=== PATIENT | male | born 1965 | race Caucasian/White ===

== ENCOUNTER 2021-03-12 07:53 | Outpatient (RCR) | payer MEDICARE, MEDICAID, SELFPAY | END 2021-04-30 10:00 | disposition home or self-care (01) | LOC: HO.WCC 07:53 | PROVIDERS: Visit Provider Surgery | DX: I87.331 Chronic venous hypertension (idiopathic) with ulcer and inflammation of right lower extremity (principal); L97.812 Non-pressure chronic ulcer of other part of right lower leg with fat layer exposed; I89.0 Lymphedema, not elsewhere classified; Z79.01 Long term (current) use of anticoagulants; Z79.2 Long term (current) use of antibiotics; Z79.899 Other long term (current) drug therapy | CPT/HCPCS: 11042; 11045; 29580; 29581; 99212 ==

== ENCOUNTER 2021-05-13 07:24 | Outpatient (REF) | payer MEDICARE, MEDICAID, SELFPAY ==
--- NOTE | ~2021-05-13 | XR_ITS ---
EXAMINATION: XR AP STANDING KNEES XR KNEE, LEFT CLINICAL INFORMATION: M25.569 - Pain in unspecified knee COMPARISON: None TECHNIQUE: Standing AP view of the knees is performed. The left knee is also imaged in lateral and axial patella views. FINDINGS: Left: There are osteoarthritic changes greatest medial knee joint compartment with moderate to prominent narrowing of the joint and marginal osteophytes medial femoral condyle and medial tibial plateau. There is no erosive change or chondrocalcinosis. No destructive process. There is small to moderate suprapatellar effusion. There is spurring at the quadriceps insertion patella and lateral and medial patellar spurring. No lateralization patella. Right: There is intact hardware proximal tibia. There is no destructive process or osteolysis. Narrowing medial knee joint compartment is present with small marginal osteophytes from the medial femoral condyle and medial tibial plateau. There is no erosive change or chondrocalcinosis. XR/XR knee LT 2V IMPRESSION: Osteoarthritis with narrowing medial knee joint compartment, greater on left. Small to moderate left effusion.
--- NOTE | ~2021-05-13 | XR_ITS ---
EXAMINATION: XR AP STANDING KNEES XR KNEE, LEFT CLINICAL INFORMATION: M25.569 - Pain in unspecified knee COMPARISON: None TECHNIQUE: Standing AP view of the knees is performed. The left knee is also imaged in lateral and axial patella views. FINDINGS: Left: There are osteoarthritic changes greatest medial knee joint compartment with moderate to prominent narrowing of the joint and marginal osteophytes medial femoral condyle and medial tibial plateau. There is no erosive change or chondrocalcinosis. No destructive process. There is small to moderate suprapatellar effusion. There is spurring at the quadriceps insertion patella and lateral and medial patellar spurring. No lateralization patella. Right: There is intact hardware proximal tibia. There is no destructive process or osteolysis. Narrowing medial knee joint compartment is present with small marginal osteophytes from the medial femoral condyle and medial tibial plateau. There is no erosive change or chondrocalcinosis. XR/XR knee standing BI IMPRESSION: Osteoarthritis with narrowing medial knee joint compartment, greater on left. Small to moderate left effusion.
== END 2021-05-13 07:25 | disposition home or self-care (01) ==
LOC: HO.HOSX 07:24
PROVIDERS: Visit Provider Physician Assistant
DX: M17.12 Unilateral primary osteoarthritis, left knee (principal)
CPT/HCPCS: 20610; 73560; 73565; 99202; J1040

== ENCOUNTER → 2021-05-19 13:02 | Outpatient (BNVA) | payer MEDICARE, MEDICAID, SELFPAY | PROVIDERS: PCP Family Medicine; Visit Provider Internal Medicine Cardiovascular Disease | DX: I48.0 Paroxysmal atrial fibrillation (principal); I10 Essential (primary) hypertension; E66.01 Morbid (severe) obesity due to excess calories; G47.33 Obstructive sleep apnea (adult) (pediatric); Z68.43 Body mass index [BMI] 50.0-59.9, adult; Z98.84 Bariatric surgery status; Z86.718 Personal history of other venous thrombosis and embolism; Z86.711 Personal history of pulmonary embolism; Z95.828 Presence of other vascular implants and grafts; Z99.89 Dependence on other enabling machines and devices; Z88.1 Allergy status to other antibiotic agents; Z88.0 Allergy status to penicillin; Z88.2 Allergy status to sulfonamides; Z88.8 Allergy status to other drugs, medicaments and biological substances; Z79.02 Long term (current) use of antithrombotics/antiplatelets; Z79.899 Other long term (current) drug therapy | CPT/HCPCS: 93005; 99202 ==

== ENCOUNTER 2021-05-27 07:53 | Outpatient (RCR) | payer MEDICARE, MEDICAID, SELFPAY ==
--- NOTE | 2021-06-26 14:39 | MHC.OT.DC ---
[address] [phone] F: [phone] Occupational Therapy Discharge Note Provider: Kathleen Lozoya MD Diagnosis: Bilateral leg lymphedema , s/p open wound on the right Date of Surgery: Date of Evaluation: Date of Discharge: Treatments to Date: 1 Cancellations to Date: No Shows to Date: Discharge Status: Physician Discontinued Tx Discharge Summary: See eval for details. Pt had been measured for Juxtalite wrap at [facility], but has not been fitted. Pt had a venograph showing DVT. Seen by Dr Molina. Planning surgical intervention. Electronically Signed By: Ellie Mora OT CHt CLT Reviewed/agree with student documentation: N/A Therapist: Please Sign and return to therapist, thank you for your referral.
== END 2022-02-17 11:42 | disposition home or self-care (01) ==
LOC: HO.OT 07:53
PROVIDERS: PCP Family Medicine; Visit Provider Surgery
DX: I89.0 Lymphedema, not elsewhere classified (principal)

== ENCOUNTER 2021-06-02 08:55 | Outpatient (REF) | payer MEDICARE, MEDICAID, SELFPAY ==
[2021-06-02 12:06] LABS: Blood Urea Nitrogen 20 mg/dL (9-16); Estimated Glomerular Filt Rate > 60
== END 2021-06-02 08:56 | disposition home or self-care (01) ==
LOC: HO.HMGCLDS 08:55
PROVIDERS: PCP Family Medicine; Visit Provider Radiology Vascular & Interventional Radiology
DX: R79.89 Other specified abnormal findings of blood chemistry (principal); R94.4 Abnormal results of kidney function studies
CPT/HCPCS: 36415; 82565; 84520

== ENCOUNTER → 2021-07-03 08:45 | Outpatient (REF) | payer MEDICARE, MEDICAID, SELFPAY ==
--- NOTE | 2021-07-03 08:48 | CA_ITS ---
Transthoracic Echocardiogram Patient (Last, First, Middle): Jan Vilalrreal, Gender: Male Date of : 1965 Age: 55 Procedure Date: 07/03/2021 Procedure Type: Transthoracic Echocardiogram Location: OP Height: 175.26 cm Weight: 154.22 kg BSA: 2.59 m2 Heart Rate: bpm BP: 150 / 80 mmHg [employer] Supervisor: DSCee Referring MD: Steven Ch MD Symptoms: I48.0 - Paroxysmal atrial fibrillation Conclusions: - Normal left ventricular size, thickness, systolic function, and wall motion. - Normal right ventricular cavity size and systolic function. - Moderate pulmonary hypertension is present. - There is mild dilatation of the ascending aorta. Findings Left Ventricle Normal left ventricular size, thickness, systolic function, and wall motion. The visually estimated ejection fraction is between 55-60%. Diastolic function is normal for age. Right Ventricle Normal right ventricular cavity size and systolic function. Atria The left atrium was not well visualized. Aortic Valve There is mild calcification of the aortic valve. There is no aortic valve stenosis. There is no aortic valve regurgitation. Mitral Valve Normal mitral valve structure and function. There is no mitral valve regurgitation. There is no mitral valve stenosis. Pulmonic Valve Normal pulmonic valve structure and function. There is trace pulmonic valve regurgitation. Tricuspid Valve Normal tricuspid valve structure and function. There is trace tricuspid valve regurgitation. Normal right atrial pressure. Moderate pulmonary hypertension is present. Great Vessels There is mild dilatation of the ascending aorta. The visualized portions of the pulmonary artery and branches are normal. Venous The inferior vena cava is normal in size and collapses greater than 50% with inspiration. Pericardium/Pleural There is no evidence of pericardial effusion. Prior Study Comparison No prior study available for comparison. Measurements 2D Linear Measurements IVSd: 0.99 0.6-0.9/0.6-1.0 cm LVIDd: 5.64 3.9-5.3/4.2-5.9 cm LVIDd Index: 2.18 2.4-3.2/2.2-3.1 cm/m2 LVIDs: 3.08 2.0-3.6 cm LVPWd: 1.30 0.7-1.1 cm Ao Root: 3.20 2.1-3.5 cm LA Diam: 4.60 2.7-3.8/3.0-4.0 cm LAIDs Index: 1.78 1.5-2.3 cm/m2 LV Mass: 331.06 67-162/88-224 g LV Mass Index: 127.82 43-95/49-115 g/m2 LVOT Diam: 2.50 3.0+(-)1.3 cm Mitral Valve MV Pk E: 0.89 MV PK A: 0.93 MV Decel Time: 184.00 E/A: 1.00 E'Lateral: 11.20 E'Medial: 12.90 E/E' Med: 6.90 E/E' Lat: 7.90 PHT: 54.00 MVA PHT: 4.07 Decel Harlan: 4.81 Aortic Valve AoV Pk Aidan: 1.26 AoV Pk Grad: 6.00 LVOT LVOT Pk Aidan: 1.06 LVOT Mn Aidan: 0.65 LVOT VTI: 0.17 LVOT Pk Grad: 4.00 LVOT Mn Grad: 2.00 LVOT Diam: 2.50 LVOT Area: 4.91 Diastolic Function MV Pk E: 0.89 MV Pk A: 0.93 E/A: 1.00 E'Medial: 12.90 E/E' Med: 6.90 E' Laterial: 11.20 E/E' Lat: 7.90 Right Ventricle TAPSE (mm): 2.75 Tricuspid Valve TR Pk Aidan: 3.29 TR Pk Grad: 43.00 RA Press: 3.00 RVSP: 50.00 Great Vessels Aorta Ao Root-2D: 3.20 2.0-3.7 cm Ao Asc: 3.80 2.1-3.4 cm Updated in Other Vendor System with Status of Final Steven Ch MD electronically signed on 07/05/2021 10:20:51 PM with status of Final
== END ==
LOC: HO.CARD 08:45
PROVIDERS: PCP Family Medicine; Visit Provider Internal Medicine Cardiovascular Disease
DX: I48.0 Paroxysmal atrial fibrillation (principal)
CPT/HCPCS: 93306; Q9957

== ENCOUNTER → 2021-08-11 11:30 | Outpatient (BNVA) | payer MEDICARE, MEDICAID, SELFPAY | PROVIDERS: PCP Family Medicine; Referring Provider Family Medicine; Visit Provider Internal Medicine Cardiovascular Disease | DX: I48.0 Paroxysmal atrial fibrillation (principal); I26.99 Other pulmonary embolism without acute cor pulmonale; I10 Essential (primary) hypertension; E66.01 Morbid (severe) obesity due to excess calories; E89.0 Postprocedural hypothyroidism; Z98.84 Bariatric surgery status; Z95.828 Presence of other vascular implants and grafts; Z79.01 Long term (current) use of anticoagulants; Z79.891 Long term (current) use of opiate analgesic; Z79.899 Other long term (current) drug therapy | CPT/HCPCS: 99212 ==

== ENCOUNTER → 2021-08-12 13:59 | Outpatient (BNVA) | payer MEDICARE, MEDICAID, SELFPAY | PROVIDERS: PCP Family Medicine; Visit Provider Urology | DX: N40.1 Benign prostatic hyperplasia with lower urinary tract symptoms (principal); R33.9 Retention of urine, unspecified; N32.81 Overactive bladder | CPT/HCPCS: 99202 ==

== ENCOUNTER 2021-09-01 09:30 | Outpatient (REF) | payer MEDICARE, MEDICAID, SELFPAY ==
--- NOTE | ~2021-09-01 | XR_ITS ---
EXAMINATION: KNEE X-RAY CLINICAL INFORMATION: Pain COMPARISON: Previous left knee x-ray April 2021 TECHNIQUE: Standing AP view of both knees and lateral and sunrise view of the left knee FINDINGS: Right knee: Bone alignment is normal. No fracture or dislocation is seen. There is arthritis at the medial femoral tibial and patellofemoral joints with joint space narrowing and osteophyte formation. There is a joint effusion. Standing AP view of the left knee demonstrates orthopedic hardware in the proximal tibia there is arthritis at the medial femoral tibial joint. XR/XR knee LT 2V IMPRESSION: Right knee: Arthritis and joint effusion. Left knee:. The proximal tibia and arthritis at the medial femoral tibial joint.
--- NOTE | ~2021-09-01 | XR_ITS ---
EXAMINATION: KNEE X-RAY CLINICAL INFORMATION: Pain COMPARISON: Previous left knee x-ray April 2021 TECHNIQUE: Standing AP view of both knees and lateral and sunrise view of the left knee FINDINGS: Right knee: Bone alignment is normal. No fracture or dislocation is seen. There is arthritis at the medial femoral tibial and patellofemoral joints with joint space narrowing and osteophyte formation. There is a joint effusion. Standing AP view of the left knee demonstrates orthopedic hardware in the proximal tibia there is arthritis at the medial femoral tibial joint. XR/XR knee standing BI IMPRESSION: Right knee: Arthritis and joint effusion. Left knee:. The proximal tibia and arthritis at the medial femoral tibial joint.
== END 2021-09-01 09:31 | disposition home or self-care (01) ==
LOC: HO.HOSX 09:30
PROVIDERS: Visit Provider Orthopaedic Surgery
DX: M17.12 Unilateral primary osteoarthritis, left knee (principal)
CPT/HCPCS: 20610; 73560; 73565; 99212; J1040

== ENCOUNTER 2021-09-15 14:05 | Outpatient (REF) | payer MEDICARE, MEDICAID, SELFPAY ==
[2021-09-15 16:43] LABS: Platelet Count 233 X10*3/uL (160-400)
[2021-09-15 16:52] LABS: Prothrombin Time 11.3 SEC (9.9-13.0)
[2021-09-15 17:04] LABS: Anion Gap 12 (12-20); Blood Urea Nitrogen 17 mg/dL (9-16); Calcium 9.2 mg/dL (8.4-10.2); Carbon Dioxide 28 mmol/L (22-29); Chloride 105 mmol/L (96-108); Estimated Glomerular Filt Rate > 60; Glucose Random 87 mg/dL (60-115); Potassium 4.7 mmol/L (3.3-5.1); Sodium 140 mmol/L (135-145)
== END 2021-09-15 14:06 | disposition home or self-care (01) ==
LOC: HO.HMGCLDS 14:05
PROVIDERS: Visit Provider Student in an Organized Health Care Education/Training Program
DX: D68.9 Coagulation defect, unspecified (principal); Z95.828 Presence of other vascular implants and grafts
CPT/HCPCS: 36415; 80048; 85049; 85610

== ENCOUNTER → 2021-11-17 12:37 | Outpatient (BNVA) | payer MEDICARE, MEDICAID, SELFPAY | PROVIDERS: PCP Family Medicine; Referring Provider Family Medicine; Visit Provider Internal Medicine Cardiovascular Disease | DX: I48.0 Paroxysmal atrial fibrillation (principal); I10 Essential (primary) hypertension | CPT/HCPCS: 99212 ==

== ENCOUNTER 2021-12-02 11:43 | Outpatient (REF) | payer MEDICARE, MEDICAID, SELFPAY ==
[2021-12-02 14:11] LABS: INTERNATIONAL NORM RATIO 1.5 (0.9-1.1); Prothrombin Time 16.9 SEC (9.9-13.0)
[2021-12-02 14:12] LABS: Platelet Count 227 X10*3/uL (160-400)
[2021-12-02 14:16] LABS: Blood Urea Nitrogen 20 mg/dL (9-16); Estimated Glomerular Filt Rate > 60
== END 2021-12-02 11:44 | disposition home or self-care (01) ==
LOC: HO.HMGCLDS 11:43
PROVIDERS: PCP Family Medicine; Visit Provider Physician Assistant
DX: D68.9 Coagulation defect, unspecified (principal); Z95.828 Presence of other vascular implants and grafts
CPT/HCPCS: 36415; 82565; 84520; 85049; 85610

== ENCOUNTER → 2022-01-13 09:23 | Outpatient (BNVA) | payer MEDICARE, MEDICAID, SELFPAY | PROVIDERS: Visit Provider Physician Assistant | DX: M17.12 Unilateral primary osteoarthritis, left knee (principal) | CPT/HCPCS: 99212 ==

== ENCOUNTER 2022-01-21 13:58 | Outpatient (REF) | payer MEDICARE, MEDICAID, SELFPAY ==
[2022-01-21 17:00] LABS: Blood Urea Nitrogen 21 mg/dL (9-16); Estimated Glomerular Filt Rate > 60
== END 2022-01-21 13:59 | disposition home or self-care (01) ==
LOC: HO.HMGCLDS 13:58
PROVIDERS: PCP Family Medicine; Visit Provider Radiology Vascular & Interventional Radiology
DX: R79.89 Other specified abnormal findings of blood chemistry (principal); R94.4 Abnormal results of kidney function studies
CPT/HCPCS: 36415; 82565; 84520

== ENCOUNTER 2022-01-30 11:28 | Emergency (ER) | payer MEDICARE, MEDICAID, SELFPAY ==
--- NOTE | ~2022-01-30 | XR_ITS ---
EXAMINATION: XR KNEE, LEFT CLINICAL INFORMATION: Pain in the left knee for months COMPARISON: Radiographs of the left knee 09/01/2021 TECHNIQUE: Four views of the left knee. FINDINGS: Again demonstrated is medial and patellofemoral joint space narrowing with tricompartmental osteophyte formation. No acute fracture or dislocation. There is an enthesophyte of the quadriceps tendon. There is a trace joint effusion. XR/XR knee LT 3V IMPRESSION: Moderate osteoarthritis of the left knee is again demonstrated, similar to the prior study. No acute fracture or dislocation.
--- NOTE | ~2022-01-30 | US_ITS ---
EXAMINATION: US VENOUS ULTRASOUND WITH DOPPLER LOWER EXTREMITY, LEFT CLINICAL INFORMATION: Pain. On Eliquis COMPARISON: None TECHNIQUE: Ultrasound of the deep veins is performed from the hip to the calf with compression sonography and color and pulse Doppler assessment. Spectral analysis with color-flow imaging is performed. FINDINGS: Exam limited by body habitus. Limited visualization of the distal femoral vein popliteal vein in the calf veins. No evidence of deep vein thrombosis from groin through the calf. If the patient's symptoms persist, followup ultrasound in 5 days 7 days might be of value to exclude proximal propagation from a non-visualized calf vein. US/US venous duplex LE LT IMPRESSION: No DVT demonstrated in the left lower extremity.
[2022-01-30 12:45] VITALS: BP 179/51; PULSE 57; RESP 16; TEMP 36.4; O2SAT 97; BMI 55.9
--- NOTE | 2022-01-30 13:09 | ED_ITS ---
HPI - Extremity Problem General Chief complaint: Extremity Problem Stated complaint: L knee pain Time Seen by Provider: 01/30/22 13:09 Source: patient Mode of arrival: ambulatory Limitations: physical limitation (obesity) History of Present Illness HPI Narrative: 56-year-old male presents for months of left knee pain that has worsened in the last week. It is painful to walk on it and it is difficult for him to bend it much. It is worse with standing and movement. 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 He has hardware in his right knee, but no surgeries on his left knee. He last saw orthopedics 01/13/2022, and they stated due to his BMI being 56, and bilateral lower extremity venous stasis, he is not a candidate for knee replacement surgery. Patient is seeing vascular surgery this coming Wednesday for bilateral leg stents. He has been on Eliquis, 5 mg b.i.d., he stopped Eliquis last night due to the upcoming surgery. In addition, patient has an appoint with pain management in 2 weeks him Ortho referred him to. States he cannot have NSAIDs due to gastric bypass. His left knee pain is 03/27 now Related Data Home Medications Medication Instructions Recorded Confirmed albuterol sulfate 90 mcg/actuation 1 inh INHALATION QID 05/13/21 11/17/21 aerosol inhaler calcium carbonate-vitamin D3 600 cap PO 05/13/21 11/17/21 mg-2.5 mcg (100 unit) capsule ferrous fumarate 325 mg (106 mg 325 mg PO DAILY 05/13/21 11/17/21 iron) tablet montelukast 10 mg tablet 10 mg PO BEDTIME 05/13/21 11/17/21 omeprazole 40 mg capsule,delayed 40 mg PO DAILY 05/13/21 11/17/21 release oxycodone 5 mg capsule 5 mg PO BID PRN 05/13/21 11/17/21 sertraline 50 mg tablet 50 mg PO DAILY 05/13/21 11/17/21 gabapentin 300 mg capsule 300 mg PO TID 05/19/21 11/17/21 cyclobenzaprine 5 mg tablet 5 mg PO BID 08/11/21 11/17/21 furosemide 20 mg tablet 20 mg PO DAILY 08/11/21 11/17/21 ferrous sulfate 325 mg (65 mg 325 mg PO DAILY 08/12/21 11/17/21 iron) tablet Previous Rx's Medication Instructions Recorded metoprolol succinate 100 mg 100 mg PO DAILY #90 tab 05/19/21 tablet,extended release 24 hr (Toprol XL) oxybutynin chloride 10 mg 10 mg PO DAILY 90 Days #90 tab 08/12/21 tablet,extended release 24 hr tamsulosin 0.4 mg capsule 0.4 mg PO BEDTIME 90 Days #90 cap 08/12/21 lisinopril 20 mg tablet 20 mg PO DAILY #90 tab 11/17/21 Allergies Allergy/AdvReac Type Severity Reaction Status Date / Time cefaclor [From [facility]] Allergy Severe hives Verified 01/13/22 09:33 epanolol Allergy Severe hives Verified 01/13/22 09:33 misoprostol Allergy Severe rash Verified 01/13/22 09:33 NSAIDS (Non-Steroidal Allergy Severe GI upset Verified 01/13/22 09:33 Anti-Inflamma Penicillins Allergy Severe hives, Verified 01/13/22 09:33 rash, itching Sulfa (Sulfonamide Allergy Severe Hives Verified 01/13/22 09:33 Antibiotics) Cephalosporins Allergy Intermediate hives Verified 01/13/22 09:33 amoxicillin Allergy Mild rash Verified 01/13/22 09:33 vancomycin Allergy Mild itching Verified 01/13/22 09:33 Review of Systems Constitutional: Constitutional: Denies body ache(s), Denies chills, Denies fatigue, Denies fever(s), Denies headache(s), Denies malaise and Denies weakness Eyes: Eyes: Denies diplopia ENT: Denies vertigo, Denies dizziness, Denies otalgia, Denies headache(s), Denies mouth pain, Denies post nasal drip, Denies sinus pain and Denies sore throat Cardiovascular: Cardiovascular: Denies chest pain, Denies syncope, Denies leg edema, Denies lightheadedness, Denies Loss of Consciousness, Denies palpitations and Denies dyspnea Respiratory: Respiratory: Denies chest congestion, Denies cough and Denies dyspnea Gastrointestinal: Gastrointestinal: Denies abdominal pain, Denies hem atochezia, Denies constipation, Denies diarrhea and Denies vomiting Musculoskeletal: Musculoskeletal: Denies deformity, Reports arthralgias, Denie s muscle weakness, Denies numbness and Denies tingling Neurologic: Denies confusion, Denies vertigo, Denies dizziness, Denies syncope, Denies headache(s), Denies numbness, Denies tingling and Denies weakness Psychiatric: Psychiatric: Denies anxiety, Denies confusion and Denies depression Endocrine: Endocrine: Denies fatigue and Denies palpitations [facility] Past Medical History Medical History Asthma Depression Dyspnea GERD (gastroesophageal reflux disease) History of kidney stones Hyperlipidemia Lumbar disc disease Lumbar disc prolapse with root compression Lymphedema Morbid obesity Neurogenic bladder OA (osteoarthritis) Uncomplicated opioid dependence Venous stasis Surgical History Hx of gastric bypass Family History Family History Mother Diabetes Father Brain cancer Social History Social History Alcohol intake: former Year quit: 1979 Patient Tobacco Use Status: Former Tobacco user Quit Date: Years Smoked: 2 Advance Directives: Yes Advance Directives on File: Yes Advance Directives Date on File: 08/14/21 Current occupational status: disabled Current occupation: rt handed Physical Exam Vital Signs: Vital Signs: Last Vital Signs Temp 97.6 F 01/30/22 12:45 Pulse 57 01/30/22 12:45 Resp 16 01/30/22 12:45 BP 179/51 H 01/30/22 12:45 Pulse Ox 97 01/30/22 12:45 BMI result Body Mass Index 55.9 Const: General: alert and awake; No confusion Nutritional Appearance: obese morbidly obese Orientation/consciousness: patient oriented x3 and No confusion Limitations: no limitations Eyes: Conjunctivae: conjunctivae normal Pupils: Equal, round and reactive pupils present EOM: EOMs intact bilaterally Neck: Neck: Yes full ROM, Yes no lymphadenopathy and Yes supple Resp: Effort & Inspection: normal respiratory effort and able to speak in complete sentences Auscultation: clear to auscultation bilaterally, no crac kles, no rales, no rhonchi and no wheezes Cardio: Rate: regular rate Rhythm: regular rhythm Heart sounds: S1 normal heart sound present and S2 normal heart sound present GI: Inspection: Yes normal to inspection Palpation (GI): Soft to palpation, nontender, no guarding and not rigid Percussion: Yes normal to percussion Auscultation: normal bowel sounds Skin: Other: bilateral venous statis on LE with skin thickening Neuro: General: patient oriented x3 and No confusion Cranial nerves: Yes Equal, round and reactive pupils present Extrem: Left lower extremity: normal capillary refill and knee Details: tenderness Location: of the patella Details: medially and of the medial joint line, abnormal ROM Details: pain with passive ROM Details: with flexion and knee ligament exam normal; Negative for no swelling, no ecchymosis and no unusual warmth; No no cyanosis and no edema Psych: Appearance: grossly normal Affect: normal affect Attitude: cooperative Thought process: Normal thought process present Course Course Course Narrative: 56-year-old male who is morbidly obese with a history opioid dependence presents for 1 week of worsening left knee pain. Patient has chronic left knee pain, and has been evaluated by orthopedics. Patient has osteoarthritis of his left knee, and is not a surgical candidate. Patient has an upcoming appoint with pain management. On exam, patient is morbidly obese, can only flex his knee to 60 degrees, has intact distal extremity pulses, intact sensation, intact lower extremity stren gth. Patient has bilateral venous stasis and skin thickening on his lower extremities. Because patient stopped his Eliquis, and has history of DVT, will get ultrasound of left lower extremity to rule out DVT. Will get x-ray. If these are normal, will treat with Tylenol, have patient keep appointment with pain management. XR/XR knee LT 3V IMPRESSION: Moderate osteoarthritis of the left knee is again demonstrated, similar to the prior study. No acute fracture or dislocation. Reevaluation(s) Reevaluation #1: No DVT Discuss the possibility of Synvisc injection. Discussed rest, ice, compression, elevation. Provided Israel bandage. Discussed Tylenol use. Counseled patient to call orthopedics. Counseled patient to keep his vascular appointment for Wednesday and stay off his Eliquis, and to keep his pain management appointment. Discharge Plan Discharge Clinical Impression: Osteoarthritis of left knee Patient Disposition: Home, Self-Care Instructions: Arthritis (ED) Additional Instructions: Please take Tylenol for pain. You can take 1000 mg which is 2 extra-strength Tylenol every 8 hours. Do not exceed 3000 mg in 24 hours. Please stay off your Eliquis until you see vascular surgery on Wednesday. Please keep your appointment with the Pain Clinic. Please try to rest your left leg, leave the Israel bandage on the left leg, you may use ice or heat on the left leg, please elevate your left leg. Please call orthopedics for a follow-up appointment. We discussed something called Synvisc. This is an artificial synovial fluid. Please ask orthopedics if you would be a candidate for this procedure. Prescriptions: No Action ferrous sulfate 325 mg (65 mg iron) tablet 325 mg PO DAILY 0RF tamsulosin 0.4 mg capsule 0.4 mg PO BEDTIME 90 Days Qty: 90 1RF oxybutynin chloride 10 mg tablet extended release 24hr 10 mg PO DAILY 90 Days Qty: 90 1RF cyclobenzaprine 5 mg tablet 5 mg PO BID 0RF furosemide 20 mg tablet 20 mg PO DAILY 0RF gabapentin 300 mg capsule 300 mg PO TID 0RF metoprolol succinate [Toprol XL] 100 mg tablet extended release 24 hr 100 mg PO DAILY Qty: 90 3RF ferrous fumarate 325 mg (106 mg iron) tablet 325 mg PO DAILY 0RF sertraline 50 mg tablet 50 mg PO DAILY 0RF oxycodone 5 mg capsule 5 mg PO BID PRN0RF omeprazole 40 mg capsule,delayed release(DR/EC) 40 mg PO DAILY 0RF calcium carbonate-vitamin D3 600 mg(1,500mg) -100 unit capsule PO 0RF montelukast 10 mg tablet 10 mg PO BEDTIME 0RF albuterol sulfate 90 mcg/actuation HFA aerosol inhaler 1 inh inhalation QID 0RF lisinopril 20 mg tablet 20 mg PO DAILY Qty: 90 4RF Referrals: Dave Chowdhury MD [Physician] -
[2022-01-30] MEDS: Acetaminophen 325 MG TABLET 975 MG PO (14:23)
== END 2022-01-30 15:31 | disposition home or self-care (01) ==
PROVIDERS: Emergency Provider Emergency Medicine; PCP Family Medicine
DX: M17.12 Unilateral primary osteoarthritis, left knee (principal); R60.0 Localized edema; Z87.891 Personal history of nicotine dependence; Z79.899 Other long term (current) drug therapy; Z98.84 Bariatric surgery status
CPT/HCPCS: 73562; 93971; 99284

== ENCOUNTER → 2022-02-06 09:19 | Outpatient (BNVA) | payer MEDICARE, MEDICAID, SELFPAY | PROVIDERS: Visit Provider Nurse Practitioner Family | DX: M17.12 Unilateral primary osteoarthritis, left knee (principal); M25.562 Pain in left knee; G89.29 Other chronic pain | CPT/HCPCS: 99202 ==

== ENCOUNTER 2022-02-09 12:30 | Outpatient (REF) | payer MEDICARE, MEDICAID, SELFPAY ==
[2022-02-09 15:32] LABS: MANUAL DIFF FLAG NO
[2022-02-09 16:26] LABS: Basophils Absolute Auto 0.1 X10*3/uL (0.0-0.2); Basophils Percent Auto 0.9 % (0-2); Eosinophils Absolute Auto 0.2 X10*3/uL (0.0-0.4); Eosinophils Percent Auto 2.3 % (0-4); Hematocrit 39.5 % (42.0-52.0); Hemoglobin 12.8 g/dl (14.0-18.0); Imm Gran Abs Auto 0.08 X10*3/uL (0.00-0.03); Imm Gran Pct Auto 1.2 % (0.0-0.4); Lymphocytes Absolute Auto 1.5 X10*3/uL (1.2-4.9); Mean Corpuscular HGB Conc 32.4 g/dl (31.0-36.0); Mean Corpuscular Hemoglobin 31.6 pg (27.0-33.0); Mean Corpuscular Volume 97.5 fL (80.0-98.0); Mean Platelet Volume 9.3 fL (9.4-12.4); Monocytes Absolute Auto 0.6 X10*3/uL (0.1-1.2); Monocytes Percent Auto 9.5 % (2-11); Neutrophils Absolute Auto 4.2 x10*3/uL (2.0-8.3); Neutrophils Percent Auto 63.1 % (45-73); Platelet Count 255 X10*3/uL (160-400); Red Blood Count 4.05 X10*6/uL (4.60-5.80); White Blood Count 6.6 X10*3/uL (4.8-10.8)
[2022-02-09 16:33] LABS: Estimated Average Glucose 100 mg/dL; Hemoglobin A1c % 5.1 %
[2022-02-09 17:05] LABS: Alanine Aminotransferase 24 U/L (0-40); Albumin Level 3.9 g/dL (3.5-5.0); Alkaline Phosphatase 82 U/L (39-117); Anion Gap 11 (12-20); Aspartate Amino Transferase 24 U/L (5-37); Bilirubin Total 0.6 mg/dL (0.0-1.0); Blood Urea Nitrogen 15 mg/dL (9-16); C Reactive Protein 3.95 mg/dL (< or = 0.50); Carbon Dioxide 27 mmol/L (22-29); Chloride 104 mmol/L (96-108); Cholesterol 197 mg/dL; Estimated Glomerular Filt Rate > 60; Glucose Random 86 mg/dL (60-115); HDL Cholesterol 42 mg/dL; Iron 70 mcg/dL (45-160); LDL Cholesterol Calculated 135 mg/dl; Percent Iron Saturation 27 % (15-50); Potassium 4.4 mmol/L (3.3-5.1); Sodium 138 mmol/L (135-145); Total Iron Binding Capacity 264 mcg/dL (228-428); Total Protein 7.1 g/dL (6.5-8.0); Triglycerides 100 mg/dL; Unsaturated Iron Binding 194 ug/dL
[2022-02-09 17:17] LABS: Ferritin 209 ng/mL (20-250); Insulin 8 uU/mL (2-29); TSH reflex Free T4 3.64 uIU/mL (0.32-4.0); Vitamin D 25-OH Total 20.4 ng/mL (>30)
[2022-02-09 17:22] LABS: Folate 13.8 ng/mL (> or = 4.0); Vitamin B12 261 pg/mL (200-900)
[2022-02-09 19:02] LABS: Thyroid Stimulating Hormone 3.58 uIU/mL (0.32-4.0)
[2022-02-10 11:27] LABS: PTHI 226 pg/mL (16-77)
[2022-02-11 13:11] LABS: Transglutaminase IgA <1.0 U/mL
[2022-02-13 06:12] LABS: Vitamin B1 11 nmol/L (8-30)
[2022-02-13 13:47] LABS: Zinc 59 mcg/dL (60-130)
[2022-02-13 21:11] LABS: Vitamin A 47 mcg/dL (38-98)
[2022-02-13 23:07] LABS: Endomysial IgA Antibody Negative (Negative)
== END 2022-02-09 12:31 | disposition home or self-care (01) ==
LOC: HO.LAB 12:30
PROVIDERS: Physician Assistant; PCP Family Medicine; Visit Provider Physician Assistant
DX: R19.7 Diarrhea, unspecified (principal); E66.01 Morbid (severe) obesity due to excess calories; I48.0 Paroxysmal atrial fibrillation; Z79.01 Long term (current) use of anticoagulants; Z98.84 Bariatric surgery status
CPT/HCPCS: 36415; 80053; 80061; 82306; 82607; 82728; 82746; 83036; 83525; 83540; 83970; 84425; 84443; 84590; 84630; 85025; 86140; 86231; 86364; 99202

== ENCOUNTER 2022-03-06 09:33 | Outpatient (REF) | payer MEDICARE, MEDICAID, SELFPAY ==
[2022-03-06 12:42] LABS: Leukocytes Stool Qualitative NEGATIVE (NEGATIVE)
[2022-03-06 13:44] LABS: CDiff Gene PCR NEGATIVE (Negative)
== END 2022-03-06 09:34 | disposition home or self-care (01) ==
LOC: HO.HMGCLNP 09:33
PROVIDERS: Visit Provider Physician Assistant
DX: R19.7 Diarrhea, unspecified (principal)
CPT/HCPCS: 87045; 87046; 87177; 87209; 87329; 87493; 89055

== ENCOUNTER → 2022-03-19 14:43 | Outpatient (BNVA) | payer MEDICARE, MEDICAID, SELFPAY | PROVIDERS: PCP Family Medicine; Referring Provider Family Medicine; Visit Provider Internal Medicine Cardiovascular Disease | DX: I48.0 Paroxysmal atrial fibrillation (principal); I10 Essential (primary) hypertension; R07.9 Chest pain, unspecified; Z86.718 Personal history of other venous thrombosis and embolism; Z79.01 Long term (current) use of anticoagulants; Z79.899 Other long term (current) drug therapy | CPT/HCPCS: 93005; 99212; Q3014 ==

== ENCOUNTER 2022-03-20 08:25 | Outpatient (REF) | payer MEDICARE, MEDICAID, SELFPAY ==
[2022-03-20 11:26] LABS: MANUAL DIFF FLAG NO
[2022-03-20 11:39] LABS: Basophils Percent Auto 0.9 % (0-2); Eosinophils Absolute Auto 0.1 X10*3/uL (0.0-0.4); Eosinophils Percent Auto 3.2 % (0-4); Hematocrit 41.4 % (42.0-52.0); Hemoglobin 13.4 g/dl (14.0-18.0); Imm Gran Abs Auto 0.02 X10*3/uL (0.00-0.03); Imm Gran Pct Auto 0.5 % (0.0-0.4); Lymphocytes Absolute Auto 1.2 X10*3/uL (1.2-4.9); Mean Corpuscular HGB Conc 32.4 g/dl (31.0-36.0); Mean Corpuscular Hemoglobin 31.2 pg (27.0-33.0); Mean Corpuscular Volume 96.3 fL (80.0-98.0); Mean Platelet Volume 10.1 fL (9.4-12.4); Monocytes Absolute Auto 0.4 X10*3/uL (0.1-1.2); Monocytes Percent Auto 8.6 % (2-11); Neutrophils Absolute Auto 2.6 x10*3/uL (2.0-8.3); Neutrophils Percent Auto 58.8 % (45-73); Platelet Count 233 X10*3/uL (160-400); Red Cell Distribution Width 13.3 % (11.0-16.0); White Blood Count 4.4 X10*3/uL (4.8-10.8)
[2022-03-20 11:48] LABS: Alanine Aminotransferase 14 U/L (0-40); Albumin Level 3.8 g/dL (3.5-5.0); Alkaline Phosphatase 70 U/L (39-117); Anion Gap 14 (12-20); Aspartate Amino Transferase 20 U/L (5-37); Bilirubin Total 0.7 mg/dL (0.0-1.0); Blood Urea Nitrogen 20 mg/dL (9-16); C Reactive Protein 0.32 mg/dL (< or = 0.50); Calcium 9.1 mg/dL (8.4-10.2); Carbon Dioxide 25 mmol/L (22-29); Chloride 105 mmol/L (96-108); Cholesterol 204 mg/dL; Estimated Glomerular Filt Rate > 60; Glucose Random 103 mg/dL (60-115); HDL Cholesterol 47 mg/dL; Iron 92 mcg/dL (45-160); LDL Cholesterol Calculated 142 mg/dl; Percent Iron Saturation 35 % (15-50); Potassium 4.7 mmol/L (3.3-5.1); Sodium 139 mmol/L (135-145); Total Iron Binding Capacity 265 mcg/dL (228-428); Total Protein 6.9 g/dL (6.5-8.0); Triglycerides 79 mg/dL; Unsaturated Iron Binding 173 ug/dL
[2022-03-20 12:12] LABS: Ferritin 173 ng/mL (20-250); Insulin 11 uU/mL (2-29); TSH reflex Free T4 2.41 uIU/mL (0.32-4.0); Vitamin D 25-OH Total 25.4 ng/mL (>30)
[2022-03-20 12:41] LABS: Folate > 20.0 ng/mL (> or = 4.0)
[2022-03-20 12:57] LABS: Estimated Average Glucose 103 mg/dL; Hemoglobin A1c % 5.2 %
[2022-03-20 14:20] LABS: Vitamin B12 433 pg/mL (200-900)
[2022-03-23 15:53] LABS: PTHI 217 pg/mL (16-77)
[2022-03-24 05:42] LABS: Zinc 81 mcg/dL (60-130)
[2022-03-25 01:52] LABS: Vitamin A 56 mcg/dL (38-98)
[2022-03-25 11:32] LABS: Vitamin B1 18 nmol/L (8-30)
== END 2022-03-20 08:26 | disposition home or self-care (01) ==
LOC: HO.HMGCLDS 08:25
PROVIDERS: Visit Provider Physician Assistant
DX: E66.01 Morbid (severe) obesity due to excess calories (principal); Z98.84 Bariatric surgery status
CPT/HCPCS: 36415; 80053; 80061; 82306; 82607; 82728; 82746; 83036; 83525; 83540; 83970; 84425; 84443; 84590; 84630; 85025; 86140

== ENCOUNTER 2022-03-26 14:32 | Inpatient (IN) | payer MEDICARE, MEDICAID, SELFPAY ==
[2022-03-26] VITALS (9 sets, daily range): BP systolic 119–217; BP diastolic 74–114; PULSE 74–180; RESP 16–22; TEMP 36.5; O2SAT 92–94; BMI 56.1
--- NOTE | 2022-03-26 | ECG_ITS ---
Test Reason : chest pain Blood Pressure : / mmHG Vent. Rate : 123 BPM Atrial Rate : 330 BPM P-R Int : 000 ms QRS Dur : 100 ms QT Int : 322 ms P-R-T Axes : 000 044 013 degrees QTc Int : 460 ms Atrial flutter with variable A-V block Nonspecific ST abnormality Abnormal ECG No previous ECGs available Referred By: Generic ED Physician Electronically Signed By:SATINDER GIRARD
--- NOTE | ~2022-03-26 | XR_ITS ---
EXAMINATION: XR CHEST CLINICAL INFORMATION: Chest pain COMPARISON: None TECHNIQUE: AP portable view of the chest was obtained. FINDINGS: The cardiopericardial silhouette is enlarged. There is some mild pulmonary vascular congestion present without evidence of interstitial or airspace edema. No pneumothorax or pleural effusion. XR/XR chest 1V IMPRESSION: Cardiomegaly with mild pulmonary vascular congestion.
--- NOTE | 2022-03-26 15:20 | ED.CHESTPAIN ---
HPI - Chest Pain General Chief Complaint: Chest Pain Stated Complaint: CHEST PRESSURE DOWN L ARM PER EMS Time Seen by Provider: 03/26/22 15:17 Source: patient and old records reviewed Mode of arrival: EMS Limitations: no limitations History of Present Illness HPI narrative: 56 yo male with hx of morbidy obesity s/p gastric bypass, HTN, HLD, PAF on eliquis, GERD here with chest pressure since 9am today does not have known CAD but does have risk factors and a family history. He will not take aspirin due to prior gastric bypass history, refused nitro with EMS - he reports compliance with all of his medications today and has not missed any doses of eliquis. Was planned for oupatient stress test with cardiology per note from 03/19. MD complaint: chest pain Onset (ago): hour(s) (9am today ) Timing of current episode: constant Prior episodes: Yes Onset: during rest Pain location: substernal and left chest Pain radiation: left arm Severity: moderate Quality: other (pressure) Relieving factors: nothing Exacerbating factors: nothing Context: other (hx of similar bouts saw Cardiology 03/19) Treatment prior to arrival: none Related Data Home Medications Medication Instructions Recorded Confirmed albuterol sulfate 90 mcg/actuation 1 inh inhalation QID 05/13/21 03/19/22 aerosol inhaler montelukast 10 mg tablet 10 mg PO BEDTIME 05/13/21 03/19/22 omeprazole 40 mg capsule,delayed 40 mg PO DAILY 05/13/21 03/19/22 release sertraline 50 mg tablet 50 mg PO DAILY 05/13/21 03/19/22 furosemide 20 mg tablet 20 mg PO DAILY 08/11/21 03/19/22 apixaban 5 mg tablet 5 mg PO BID 02/06/22 03/19/22 calcium carbonate 600 mg-vitamin cap PO DAILY 02/06/22 03/19/22 D3 10 mcg (400 unit) capsule fluticasone 250 mcg-salmeterol 50 1 inh inhalation BID 02/06/22 03/19/22 mcg/dose blistr powdr for inhalation (Advair Diskus) iron,carbonyl 65 mg-vitamin C 125 1 tab PO BEDTIME 02/06/22 03/19/22 mg tablet,delayed release (Vitron-C) multivitamin 1 tab PO DAILY 02/06/22 03/19/22 nystatin-triamcinolone topical appl topical 02/09/22 03/19/22 cream sodium chloride 5 % eye drops 1 drp ophthalmic (eye) QID PRN 02/09/22 03/19/22 methylcellulose (laxative) 500 mg 500 mg PO TID PRN 03/19/22 03/19/22 tablet (Citrucel) ferrous sulfate 325 mg (65 mg 1 tab PO QAM 03/26/22 iron) tablet oxycodone 5 mg tablet 1 tab PO Q6H PRN Pain 03/26/22 warfarin 5 mg tablet 1 tab PO DAILY 03/26/22 Previous Rx's Medication Instructions Recorded metoprolol succinate 100 mg 100 mg PO DAILY #90 tabs 05/19/21 tablet,extended release 24 hr (Toprol XL) cholecalciferol (vitamin D3) 50 50 mcg PO DAILY #30 caps 02/12/22 mcg (2,000 unit) capsule cyanocobalamin (vitamin B-12) 500 500 mcg PO DAILY #30 tabs 02/12/22 mcg tablet oxybutynin chloride 10 mg 10 mg PO DAILY 30 days #90 tabs 03/05/22 tablet,extended release 24 hr tamsulosin 0.4 mg capsule 0.4 mg PO BEDTIME 30 days #90 caps 03/05/22 lisinopril 20 mg tablet 20 mg PO DAILY #60 tabs 03/19/22 Allergies Allergy/AdvReac Type Severity Reaction Status Date / Time cefaclor [From [facility]] Allergy Severe hives Verified 03/19/22 15:20 epanolol Allergy Severe hives Verified 03/19/22 15:20 misoprostol Allergy Severe rash Verified 03/19/22 15:20 NSAIDS (Non-Steroidal Allergy Severe GI upset Verified 03/19/22 15:20 Anti-Inflamma Penicillins Allergy Severe hives, Verified 03/19/22 15:20 rash, itching Sulfa (Sulfonamide Allergy Severe Hives Verified 03/19/22 15:20 Antibiotics) Cephalosporins Allergy Intermediate hives Verified 03/19/22 15:20 amoxicillin Allergy Mild rash Verified 03/19/22 15:20 vancomycin Allergy Mild itching Verified 03/19/22 15:20 clindamycin AdvReac Intermediate Rash Verified 03/19/22 15:20 Review of Systems Review of Systems: Constitutional : No Weight loss, No Fever, No Chills ENT/Mouth : No sore throat, No Rhinorrhea Eyes: No Eye Pain, No Swelling Cardiovascular : pos Chest Pain, no SOB, no Dyspnea on Exertion, No Orthopnea, No Edema, pos Palpitations Respiratory : No Cough, No Sputum Gastrointestinal : no Nausea, No Vomiting, No Diarrhea, No abdominal Pain, No Hematochezia, No Melena Genitourinary : No Dysuria, No Urinary Frequency Musculoskeletal : No joint pain, No Myalgias, No Joint Swelling Skin : No Skin Lesions, No rash Neuro : No Weakness, No Numbness, No Dizziness, No Headache Psych : No Anxiety/Panic, No Depression Heme/Lymph: No Bruising, No Lymphadenopathy Endocrine : No Polyuria, No Polydipsia All other systems reviewed and are negative [facility] Past Medical History Source: old records reviewed Medical History Asthma Depression Dyspnea Family history of stent GERD (gastroesophageal reflux disease) History of kidney stones Hyperlipidemia Lumbar disc disease Lumbar disc prolapse with root compression Lymphedema Migration of vascular stent Morbid obesity Neurogenic bladder OA (osteoarthritis) Pulmonary embolus Uncomplicated opioid dependence Venous stasis Surgical History History of esophagogastroduodenoscopy (EGD) Hx of colonoscopy Hx of eye surgery Hx of gastric bypass S/P appendectomy S/P IVC filter Family History Family History Mother Diabetes Father Brain cancer Sister Diabetes Sister Diabetes Sister Diabetes Brother Blind Brother No problems noted. Brother No problems noted. Brother No problems noted. Brother No problems noted. Daughter No problems noted. Daughter Mental health disorder Son Mental health disorder Son No problems noted. Son No problems noted. Social History Social History Alcohol intake: former Year quit: 1979 Patient Tobacco Use Status: Former Tobacco user Quit Date: Years Smoked: 2 Use of substances other than those prescribed or required for medical reasons: No Advance Directives: Yes Advance Directives on File: Yes Advance Directives Date on File: 08/14/21 Current occupational status: disabled Current occupation: rt handed Physical Exam Vital Signs: Vital Signs: Last Vital Signs Pulse 98 03/26/22 18:37 Resp 16 03/26/22 18:37 BP 141/81 H 03/26/22 18:37 Pulse Ox 94 03/26/22 16:38 O2 Del Method 03/26/22 16:38 BMI result Body Mass Index 56.1 Appearance: Alert. Oriented X3. No acute distress. Eyes: Pupils equal, round and reactive to light. ENT: Pharynx normal. Neck: Normal inspection. Neck supple. CVS: irregular tachycardic heart rate and rhythm. Pulses normal. Respiratory: No respiratory distress. Breath sounds normal. Abdomen: Soft and nontender. Obese Skin: Skin warm and dry. Normal skin color. Normal skin turgor. Extremities: pitting lower extremity edema (chronic lymphedema). Neuro: Oriented X 3. No motor deficit. No sensory deficit. Course Course Course Narrative: HR 101 after lopressor. SL nitro for pain ordered refusing nitro for chest pain at this time - states he is worried this caused his brother's to RN will not elaborate repeat lopressor for rapid afib, IV morphine for pain, IV lasix ordered - edema, elevated BNP HR still fluctuating will place on dilt gtt repeat trop under ischemic range MDM - Chest Pain MDM Narrative Medical decision making narrative: 56 yo male with hx of morbidy obesity s/p gastric bypass, HTN, HLD, PAF on eliquis, GERD, PE with IVF filter removed in the past at [facility] here with c/o chest pain on and off for over a week seen by Dr. Ch 03/19 planned for outpatient stress test. Comes here today with c/o chest pressure since 9am with no associated symptoms he is in rapid afib at this time will need labs, troponin x 2, lopressor for rate control in rapid afib - he cannot take aspirin due to prior gastric bypass. Doubt PE compliant with eliquis and does not miss doses. Elevated heart score - plan to admit for further workup. Lab Data Result diagrams: 03/26/22 15:54 03/26/22 15:54 Labs: Lab Results 03/26/22 03/26/22 03/26/22 Range/Units 15:43 15:54 15:54 WBC 10.6 (4.8-10.8) X10*3/uL RBC 4.58 L (4.60-5.80) X10*6/uL Hgb 14.4 (14.0-18.0) g/dl Hct 43.8 (42.0-52.0) % MCV 95.6 (80.0-98.0) fL MCH 31.4 (27.0-33.0) pg MCHC 32.9 (31.0-36.0) g/dl RDW 12.9 (11.0-16.0) % Plt Count 227 (160-400) X10*3/uL MPV 9.4 (9.4-12.4) fL Immature Gran % (Auto) 0.3 (0.0-0.4) % Neut % (Auto) 86.6 H (45-73) % Lymph % (Auto) 5.7 L (20-40) % [place] % (Auto) 6.4 (2-11) % Eos % (Auto) 0.5 (0-4) % Baso % (Auto) 0.5 (0-2) % Lymph # (Auto) 0.6 L (1.2-4.9) X10*3/uL [place] # (Auto) 0.7 (0.1-1.2) X10*3/uL Eos # (Auto) 0.1 (0.0-0.4) X10*3/uL Baso # (Auto) 0.1 (0.0-0.2) X10*3/uL Abs Immat Gran (auto) 0.03 (0.00-0.03) X10*3/uL Absolute Neuts (auto) 9.2 H (2.0-8.3) x10*3/uL Absolute Nucleated RBC 0.000 (0.0-0.012) X10*3/uL Nucleated RBC % (auto) 0.0 (0.0-0.2) /100WBC PT (9.9-13.0) SEC INR (0.9-1.1) Sodium 138 (135-145) mmol/L Potassium 3.9 (3.3-5.1) mmol/L Chloride 106 (96-108) mmol/L Carbon Dioxide 24 (22-29) mmol/L Anion Gap 12 (12-20) BUN 15 (9-16) mg/dL Creatinine 0.79 (0.5-1.4) mg/dL Estim Creat Clear Calc 162.5 Estimated GFR > 60 Random Glucose 112 (60-115) mg/dL Calcium 8.7 (8.4-10.2) mg/dL Magnesium 1.9 (1.6-2.6) mg/dL Total Bilirubin 0.8 (0.0-1.0) mg/dL Direct Bilirubin 0.3 (0.0-0.5) mg/dL AST 22 (5-37) U/L ALT 15 (0-40) U/L Alkaline Phosphatase 80 (39-117) U/L Troponin I High Sens (<3.5-35.0) ng/L B-Natriuretic Peptide (<100) pg/mL Total Protein 7.3 (6.5-8.0) g/dL Albumin 4.1 (3.5-5.0) g/dL TSH (0.32-4.0) uIU/mL Ethyl Alcohol mg/dL COVID-19 ([facility]RE[facility]) Negative (Negative) COVID-19 Clin Com See Note 03/26/22 03/26/22 03/26/22 Range/Units 15:54 15:54 15:54 WBC (4.8-10.8) X10*3/uL RBC (4.60-5.80) X10*6/uL Hgb (14.0-18.0) g/dl Hct (42.0-52.0) % MCV (80.0-98.0) fL MCH (27.0-33.0) pg MCHC (31.0-36.0) g/dl RDW (11.0-16.0) % Plt Count (160-400) X10*3/uL MPV (9.4-12.4) fL Immature Gran % (Auto) (0.0-0.4) % Neut % (Auto) (45-73) % Lymph % (Auto) (20-40) % [place] % (Auto) (2-11) % Eos % (Auto) (0-4) % Baso % (Auto) (0-2) % Lymph # (Auto) (1.2-4.9) X10*3/uL [place] # (Auto) (0.1-1.2) X10*3/uL Eos # (Auto) (0.0-0.4) X10*3/uL Baso # (Auto) (0.0-0.2) X10*3/uL Abs Immat Gran (auto) (0.00-0.03) X10*3/uL Absolute Neuts (auto) (2.0-8.3) x10*3/uL Absolute Nucleated RBC (0.0-0.012) X10*3/uL Nucleated RBC % (auto) (0.0-0.2) /100WBC PT 12.2 (9.9-13.0) SEC INR 1.1 (0.9-1.1) Sodium (135-145) mmol/L Potassium (3.3-5.1) mmol/L Chloride (96-108) mmol/L Carbon Dioxide (22-29) mmol/L Anion Gap (12-20) BUN (9-16) mg/dL Creatinine (0.5-1.4) mg/dL Estim Creat Clear Calc Estimated GFR Random Glucose (60-115) mg/dL Calcium (8.4-10.2) mg/dL Magnesium (1.6-2.6) mg/dL Total Bilirubin (0.0-1.0) mg/dL Direct Bilirubin (0.0-0.5) mg/dL AST (5-37) U/L ALT (0-40) U/L Alkaline Phosphatase (39-117) U/L Troponin I High Sens 10.0 (<3.5-35.0) ng/L B-Natriuretic Peptide 281 H (<100) pg/mL Total Protein (6.5-8.0) g/dL Albumin (3.5-5.0) g/dL TSH (0.32-4.0) uIU/mL Ethyl Alcohol mg/dL COVID-19 ([facility]) (Negative) COVID-19 Clin Com 03/26/22 03/26/22 03/26/22 Range/Units 15:54 15:54 18:29 WBC (4.8-10.8) X10*3/uL RBC (4.60-5.80) X10*6/uL Hgb (14.0-18.0) g/dl Hct (42.0-52.0) % MCV (80.0-98.0) fL MCH (27.0-33.0) pg MCHC (31.0-36.0) g/dl RDW (11.0-16.0) % Plt Count (160-400) X10*3/uL MPV (9.4-12.4) fL Immature Gran % (Auto) (0.0-0.4) % Neut % (Auto) (45-73) % Lymph % (Auto) (20-40) % [place] % (Auto) (2-11) % Eos % (Auto) (0-4) % Baso % (Auto) (0-2) % Lymph # (Auto) (1.2-4.9) X10*3/uL [place] # (Auto) (0.1-1.2) X10*3/uL Eos # (Auto) (0.0-0.4) X10*3/uL Baso # (Auto) (0.0-0.2) X10*3/uL Abs Immat Gran (auto) (0.00-0.03) X10*3/uL Absolute Neuts (auto) (2.0-8.3) x10*3/uL Absolute Nucleated RBC (0.0-0.012) X10*3/uL Nucleated RBC % (auto) (0.0-0.2) /100WBC PT (9.9-13.0) SEC INR (0.9-1.1) Sodium (135-145) mmol/L Potassium (3.3-5.1) mmol/L Chloride (96-108) mmol/L Carbon Dioxide (22-29) mmol/L Anion Gap (12-20) BUN (9-16) mg/dL Creatinine (0.5-1.4) mg/dL Estim Creat Clear Calc Estimated GFR Random Glucose (60-115) mg/dL Calcium (8.4-10.2) mg/dL Magnesium (1.6-2.6) mg/dL Total Bilirubin (0.0-1.0) mg/dL Direct Bilirubin (0.0-0.5) mg/dL AST (5-37) U/L ALT (0-40) U/L Alkaline Phosphatase (39-117) U/L Troponin I High Sens 22.7 D (<3.5-35.0) ng/L B-Natriuretic Peptide (<100) pg/mL Total Protein (6.5-8.0) g/dL Albumin (3.5-5.0) g/dL TSH 0.94 (0.32-4.0) uIU/mL Ethyl Alcohol < 10 mg/dL COVID-19 ([facility]) (Negative) COVID-19 Clin Com ECG Data ECG #1: Attestation: I personally reviewed and interpreted this ECG as follows: ECG interpretation date: 03/26/22 ECG interpretation time: 15:21 Interpretation: Rate: 123 Rhythm: rapid afib [place]: normal Normal QRS complex. ST T wave : no HUI, non-specific qTC: normal prior studies: hx of afib in past no acute ischemi The study has been interpreted contemporaneously by me. . Scores Heart Score History: -1- moderately suspicious ECG: -1- non specific repolarization disturbance Age: -1- >45 - <65 Risk factory: -2- 3 or more risk factors or treated atherosclerosis Troponin: -0- < or = normal limit Score: 5 Risk: 16.6% Critical Care Time Critical Care Time Critical Care Time: Yes Total Critical Care Time: 45 Attestation: IV lopressor x 3, IV dilt gtt, IV pain medications, IV lasix, review of records I attest to this time spent taking care of the patient Discharge Plan Discharge Clinical Impression: Chest pain, Atrial fibrillation with RVR, Pulmonary edema, Uncontrolled hypertension Patient Disposition: Admitted As Inpatient
[2022-03-26] MEDS: Metoprolol Tartrate 5 MG/5 ML VIAL IVPUSH (15:25)
[2022-03-26 15:59] LABS: MANUAL DIFF FLAG NO
[2022-03-26 16:03] LABS: COVID-19 Test Negative (Negative); IDNOW Serial# 55D5AD1C
[2022-03-26 16:03] LABS: Basophils Absolute Auto 0.1 X10*3/uL (0.0-0.2); Basophils Percent Auto 0.5 % (0-2); Eosinophils Absolute Auto 0.1 X10*3/uL (0.0-0.4); Eosinophils Percent Auto 0.5 % (0-4); Hematocrit 43.8 % (42.0-52.0); Hemoglobin 14.4 g/dl (14.0-18.0); Imm Gran Abs Auto 0.03 X10*3/uL (0.00-0.03); Imm Gran Pct Auto 0.3 % (0.0-0.4); Lymphocytes Absolute Auto 0.6 X10*3/uL (1.2-4.9); Lymphocytes Percent Auto 5.7 % (20-40); Mean Corpuscular HGB Conc 32.9 g/dl (31.0-36.0); Mean Corpuscular Hemoglobin 31.4 pg (27.0-33.0); Mean Corpuscular Volume 95.6 fL (80.0-98.0); Mean Platelet Volume 9.4 fL (9.4-12.4); Monocytes Absolute Auto 0.7 X10*3/uL (0.1-1.2); Monocytes Percent Auto 6.4 % (2-11); Neutrophils Absolute Auto 9.2 x10*3/uL (2.0-8.3); Neutrophils Percent Auto 86.6 % (45-73); Platelet Count 227 X10*3/uL (160-400); Red Blood Count 4.58 X10*6/uL (4.60-5.80); Red Cell Distribution Width 12.9 % (11.0-16.0); White Blood Count 10.6 X10*3/uL (4.8-10.8)
[2022-03-26 16:08] LABS: INTERNATIONAL NORM RATIO 1.1 (0.9-1.1); Prothrombin Time 12.2 SEC (9.9-13.0)
[2022-03-26 16:13] LABS: Ethanol < 10 mg/dL
[2022-03-26 16:17] LABS: Alanine Aminotransferase 15 U/L (0-40); Albumin Level 4.1 g/dL (3.5-5.0); Alkaline Phosphatase 80 U/L (39-117); Anion Gap 12 (12-20); Aspartate Amino Transferase 22 U/L (5-37); Bilirubin Direct 0.3 mg/dL (0.0-0.5); Bilirubin Total 0.8 mg/dL (0.0-1.0); Blood Urea Nitrogen 15 mg/dL (9-16); Calcium 8.7 mg/dL (8.4-10.2); Carbon Dioxide 24 mmol/L (22-29); Chloride 106 mmol/L (96-108); Creatinine Clr Calc Pharmacy 162.5; Estimated Glomerular Filt Rate > 60; Glucose Random 112 mg/dL (60-115); Magnesium 1.9 mg/dL (1.6-2.6); Potassium 3.9 mmol/L (3.3-5.1); Sodium 138 mmol/L (135-145); Total Protein 7.3 g/dL (6.5-8.0)
[2022-03-26 16:21] LABS: B Type Natriuretic Peptide 281 pg/mL (<100)
[2022-03-26] MEDS: Morphine Sulfate 2 MG/ML CARTRIDGE IVPUSH (16:37)
[2022-03-26] MEDS: Metoprolol Tartrate 5 MG/5 ML VIAL 2.5 MG IVPUSH ×2 (16:37→17:46)
[2022-03-26] MEDS: Furosemide 20 MG/2 ML VIAL IVPUSH (16:37)
[2022-03-26 16:38] LABS: TSH reflex Free T4 0.94 uIU/mL (0.32-4.0)
--- NOTE | 2022-03-26 17:51 | PC.NURSE ---
condom cath applied, working well about 600ml of yellow urine present in the mcgarry bag
[2022-03-26] MEDS: HYDROmorphone HCl 1 MG/ML SYRINGE IVPUSH (18:19)
[2022-03-26] MEDS: Acetaminophen 325 MG TABLET 650 MG PO ×2 (18:19→23:48)
[2022-03-26 18:53] LABS: Troponin-I High Sensitivity 22.7 ng/L (<3.5-35.0)
[2022-03-26] MEDS: dilTIAZem HCL 125 MG in 0.9 % Sodium Chloride 100 ML 10 MG IVCONT (18:54)
--- NOTE | 2022-03-26 19:00 | PC.NURSE ---
Took report from Evelia to assume care of Pt, Pt resting, call light in reach, this RN continues to monitor.
--- NOTE | 2022-03-26 19:41 | PHA.MEDREC ---
Pharmacy Consult ? Medication Reconciliation Pharmacy has completed the medication reconciliation.
--- NOTE | 2022-03-26 22:29 | PM.IMHP ---
History of Present Illness Date of Service: 03/26/22 Chief Complaint: chest pain 56-year-old male with a past medical history hypertension, hyperlipidemia, paroxysmal AFib on Eliquis, GERD presented to the hospital with a chief complaint of chest pain. Patient reports that this morning it out chest pain, pressure-like in nature, nonradiating, associated mild nausea, denies any shortness of breath. Reports he had similar episode about a week ago and has seen Cardiology-planned for outpatient stress test. ER course: Per ER team patient's EKG was nonischemic, troponins were 10-22; patient refused aspirin given history of gastric bypass surgery. Patient was noted to be in AFib with rapid ventricle response; patient was given diltiazem IV push followed with placed diltiazem drip. Also noted to have mild congestion; given IV Lasix. Admitted for further management. [facility] Medical History Asthma Depression Dyspnea Family history of stent GERD (gastroesophageal reflux disease) History of kidney stones Hyperlipidemia Lumbar disc disease Lumbar disc prolapse with root compression Lymphedema Migration of vascular stent Morbid obesity Neurogenic bladder OA (osteoarthritis) Pulmonary embolus Uncomplicated opioid dependence Venous stasis Family History Mother Diabetes Father Brain cancer Sister Diabetes Sister Diabetes Sister Diabetes Brother Blind Brother No problems noted. Brother No problems noted. Brother No problems noted. Brother No problems noted. Daughter No problems noted. Daughter Mental health disorder Son Mental health disorder Son No problems noted. Son No problems noted. Surgical History History of esophagogastroduodenoscopy (EGD) Hx of colonoscopy Hx of eye surgery Hx of gastric bypass S/P appendectomy S/P IVC filter Social History Alcohol intake: former Year quit: 1979 Patient Tobacco Use Status: Former Tobacco user Quit Date: Years Smoked: 2 Use of substances other than those prescribed or required for medical reasons: No Advance Directives: Yes Advance Directives on File: Yes Advance Directives Date on File: 08/14/21 Current occupational status: disabled Current occupation: rt handed Meds Allergies Allergy/AdvReac Type Severity Reaction Status Date / Time cefaclor [From [facility]] Allergy Severe hives Verified 03/19/22 15:20 epanolol Allergy Severe hives Verified 03/19/22 15:20 misoprostol Allergy Severe rash Verified 03/19/22 15:20 NSAIDS (Non-Steroidal Allergy Severe GI upset Verified 03/19/22 15:20 Anti-Inflamma Penicillins Allergy Severe hives, Verified 03/19/22 15:20 rash, itching Sulfa (Sulfonamide Allergy Severe Hives Verified 03/19/22 15:20 Antibiotics) Cephalosporins Allergy Intermediate hives Verified 03/19/22 15:20 amoxicillin Allergy Mild rash Verified 03/19/22 15:20 vancomycin Allergy Mild itching Verified 03/19/22 15:20 clindamycin AdvReac Intermediate Rash Verified 03/19/22 15:20 Active Medications: Current Medications Acetaminophen (Acetaminophen 325 Mg Tablet) 650 mg PO Q6H PRN PRN Reason: Pain, Mild (Pain Scale 1-3) Furosemide (Furosemide 40 Mg/4 Ml Vial) 40 mg IVPUSH DAILY [facility]; Protocol Diltiazem HCl 125 mg/ Sodium (Chloride) 125 mls @ 0 mls/hr IVCONT .Q0M [facility]; Protocol Last Admin: 03/26/22 18:54 Dose: 10 mg/hr, 10 mls/hr Melatonin (Melatonin 3 Mg Tablet) 6 mg PO BEDTIME PRN PRN Reason: Insomnia Pharmacy Consult (Consult Rx Perform Med Rec) 1 each MISCELLANE ONCE PRN PRN Reason: Consult order Senna (Sennosides 8.6 Mg Tablet) 17.2 mg PO BEDTIME PRN PRN Reason: Constipation Sodium Chloride (0.9 % Sodium Chloride Flush 3 Ml Syringe) 3 ml IVFLUSH QSHIFT [facility] Home Medications Medication Instructions Recorded Confirmed Last Taken Type albuterol sulfate 90 mcg/actuation 1 inh inhalation QID PRN Shortness 05/13/21 03/26/22 Unknown History aerosol inhaler Of Breath montelukast 10 mg tablet 10 mg PO BEDTIME 05/13/21 03/26/22 03/25/22 History omeprazole 40 mg capsule,delayed 40 mg PO DAILY 05/13/21 03/26/22 03/26/22 History release sertraline 50 mg tablet 50 mg PO DAILY 05/13/21 03/26/2203/26/22 History furosemide 20 mg tablet 20 mg PO DAILY 08/11/21 03/26/22 03/26/22 History apixaban 5 mg tablet 5 mg PO BID 02/06/22 03/26/22 03/26/22 History calcium carbonate 600 mg-vitamin 1 cap PO DAILY 02/06/22 03/26/22 03/26/22 History D3 10 mcg (400 unit) capsule fluticasone 250 mcg-salmeterol 50 1 inh inhalation BID 02/06/22 03/26/22 03/26/22 History mcg/dose blistr powdr for inhalation (Advair Diskus) multivitamin 1 tab PO DAILY 02/06/22 03/26/22 03/26/22 History methylcellulose (laxative) 500 mg 500 mg PO TID PRN Constipation 03/19/22 03/26/22 03/26/22 History tablet (Citrucel) ferrous sulfate 325 mg (65 mg 1 tab PO QAM 03/26/22 03/26/22 03/26/22 History iron) tablet Physical Exam Vital Signs and Narrative: Vital Signs: Last Vital Signs Pulse 98 03/26/22 18:37 Resp 16 03/26/22 18:37 BP 141/81 H 03/26/22 18:37 Pulse Ox 94 03/26/22 16:38 O2 Del Method 03/26/22 16:38 BMI result Body Mass Index 56.1 Gen: Appears be in no acute distress HEENT: NCAT, Moist mucosa. Pulmonary: Fine crackles noted CVS: Normal S1-S2 Abdomen: BS+, Soft, Nontender Extremities: Warm well perfused; mild pedal edema present Neuro: Alert and awake. Results Labs CBC and Chem 7: 03/26/22 15:54 03/26/22 15:54 Labs: Laboratory Results - last 24 hr 03/26/22 03/26/22 03/26/22 15:43 15:54 15:54 MCV 95.6 MCH 31.4 MCHC 32.9 RDW 12.9 Plt Count 227 MPV 9.4 Immature Gran % (Auto) 0.3 Neut % (Auto) 86.6 H Lymph % (Auto) 5.7 L [place] % (Auto) 6.4 Eos % (Auto) 0.5 Baso % (Auto) 0.5 Lymph # (Auto) 0.6 L [place] # (Auto) 0.7 Eos # (Auto) 0.1 Baso # (Auto) 0.1 Abs Immat Gran (auto) 0.03 Absolute Neuts (auto) 9.2 H Absolute Nucleated RBC 0.000 Nucleated RBC % (auto) 0.0 PT INR Anion Gap 12 Estim Creat Clear Calc 162.5 Estimated GFR > 60 Random Glucose 112 Calcium 8.7 Magnesium 1.9 Total Bilirubin 0.8 Direct Bilirubin 0.3 AST 22 ALT 15 Alkaline Phosphatase 80 Troponin I High Sens B-Natriuretic Peptide Total Protein 7.3 Albumin 4.1 TSH Ethyl Alcohol COVID-19 ([facility]) Negative COVID-19 Clin Com See Note 03/26/22 03/26/22 03/26/22 15:54 15:54 15:54 MCV MCH MCHC RDW Plt Count MPV Immature Gran % (Auto) Neut % (Auto) Lymph % (Auto) [place] % (Auto) Eos % (Auto) Baso % (Auto) Lymph # (Auto) [place] # (Auto) Eos # (Auto) Baso # (Auto) Abs Immat Gran (auto) Absolute Neuts (auto) Absolute Nucleated RBC Nucleated RBC % (auto) PT 12.2 INR 1.1 Anion Gap Estim Creat Clear Calc Estimated GFR Random Glucose Calcium Magnesium Total Bilirubin Direct Bilirubin AST ALT Alkaline Phosphatase Troponin I High Sens 10.0 B-Natriuretic Peptide 281 H Total Protein Albumin TSH Ethyl Alcohol COVID-19 ([facility]) [facility] Clin Com 03/26/22 03/26/22 03/26/22 15:54 15:54 18:29 MCV MCH MCHC RDW Plt Count MPV Immature Gran % (Auto) Neut % (Auto) Lymph % (Auto) [place] % (Auto) Eos % (Auto) Baso % (Auto) Lymph # (Auto) [place] # (Auto) Eos # (Auto) Baso # (Auto) Abs Immat Gran (auto) Absolute Neuts (auto) Absolute Nucleated RBC Nucleated RBC % (auto) PT INR Anion Gap Estim Creat Clear Calc Estimated GFR Random Glucose Calcium Magnesium Total Bilirubin Direct Bilirubin AST ALT Alkaline Phosphatase Troponin I High Sens 22.7 D B-Natriuretic Peptide Total Protein Albumin TSH 0.94 Ethyl Alcohol < 10 COVID-19 ([facility]) COVID-19 Clin Com Imaging Radiologist's Impressions: Impressions Chest X-Ray 03/26/22 15:38 IMPRESSION: Cardiomegaly with mild pulmonary vascular congestion. Assessment and Plan (1) Atrial fibrillation with RVR: Status: Acute (2) Pulmonary edema: Qualifiers: Chronicity: acute Qualified Code(s): J81.0 - Acute pulmonary edema Status: Acute (3) Chest pain: Qualifiers: Chest pain type: precordial pain Qualified Code(s): R07.2 - Precordial pain Status: Acute Plan 56-year-old male with a past medical history hypertension, hyperlipidemia, paroxysmal AFib on Eliquis, GERD presented to the hospital with a chief complaint of chest pain. Chest pain: Currently resolved. EKG nonischemic. Troponins 10->22. Patient had similar episodes of chest pain about a week ago and has seen Dr. Ch in the Cardiology Clinic, plan for outpatient stress test. Will consult Cardiology for further recommendations. Patient refused aspirin. CHF: Patient noted fine crackles, chest x-ray showed congestion, proBNP elevated to 81. Status post IV Lasix in the ER. Will continue the patient on Lasix 40 mg IV daily Daily weights and I's and O's Echocardiogram AFib with RVR: Patient heart rate did not improve after IV boluses; subsequently placed on diltiazem drip in the ER. Heart rate currently improved to 80s. Will titrate down diltiazem drip as tolerated. Continue home metoprolol. Continue home Eliquis History of hypertension: Continue home lisinopril, metoprolol History of BPH: Continue home Flomax History of depression: Continue home sertraline DVT prophylaxis: Patient on Eliquis Code status: Full code Quality Stroke Does the patient have a stroke diagnosis?: No VTE Prior VTE?: No VTE Risk Level:: Medical - moderate - high VTE Device Contraindication: Treatment Not Indicated VTE Drug Contraindication: N/A - Med Ordered
--- NOTE | 2022-03-26 22:30 | PC.NURSE ---
Diltiazem stopped for heart rate of 74
[2022-03-26] MEDS: Melatonin 3 MG TABLET 6 MG PO (23:47)
--- NOTE | 2022-03-27 | ECG_ITS ---
Test Reason : HX AFLUTTER Blood Pressure : / mmHG Vent. Rate : 058 BPM Atrial Rate : 058 BPM P-R Int : 190 ms QRS Dur : 108 ms QT Int : 464 ms P-R-T Axes : 024 035 038 degrees QTc Int : 455 ms Sinus bradycardia Possible Left atrial enlargement Borderline ECG When compared with ECG of 26-MAR-2022 15:06, Sinus rhythm has replaced Atrial flutter Vent. rate has decreased BY 65 BPM Referred By: Vidal Perez Electronically Signed By:SATINDER GIRARD
[2022-03-27 02:00] VITALS: BP 116/63; PULSE 72; RESP 14; O2SAT 97
[2022-03-27 06:37] VITALS: BP 132/83; PULSE 68; RESP 14; O2SAT 96
[2022-03-27 06:56] LABS: MANUAL DIFF FLAG NO
--- NOTE | 2022-03-27 07:00 | CA_ITS ---
Transthoracic Echocardiogram Patient (Last, First, Middle): Jan Villarreal, Gender: Male Date of : 1965 Age: 56 Procedure Date: 03/27/2022 Procedure Type: Transthoracic Echocardiogram Location: ER Height: 175.26 cm Weight: 172.37 kg BSA: 2.71 m2 Heart Rate: bpm BP: 132 / 83 mmHg Emt Driver: CHRIST Referring MD: Ciro Arias MD Symptoms: chf; chest pain Study Quality: Technically Difficult/Contrast ECG Rhythm: Atrial flutter Conclusions: - The left ventricular systolic function is normal. The visually estimated ejection fraction is between 60-65%. - No obvious valvular pathology seen on this study. Findings Procedure Information Contrast agent, definity, is being given per protocol without apparent complications. Left Ventricle Normal left ventricular cavity size. There is moderately increased left ventricular wall thickness. The left ventricular systolic function is normal. The visually estimated ejection fraction is between 60-65%. There is no evidence of regional wall motion abnormalities. Diastolic function is indeterminate on the basis of available data. Right Ventricle Normal right ventricular cavity size and systolic function. Atria Both atria are normal in size. Aortic Valve There is mild calcification of the aortic valve. There is no aortic valve stenosis. There is no aortic valve regurgitation. Mitral Valve There is mild mitral annular calcification. There is no mitral valve regurgitation. There is no mitral valve stenosis. Pulmonic Valve The pulmonic valve is likely normal. Tricuspid Valve There is trace tricuspid valve regurgitation. There is no evidence of pulmonary hypertension. Great Vessels The asc aorta is normal in size. There is mild dilatation of the sinuses of Valsalva measuring 4.24 cm. Venous The inferior vena cava was not well visualized. Pericardium/Pleural There is no evidence of pericardial effusion. Prior Study Comparison No significant change compared to prior study dated: 07/03/2021. Recommendations, Care & Conclusions No obvious valvular pathology seen on this study. Measurements 2D Linear Measurements IVSd: 1.27 0.6-0.9/0.6-1.0 cm LVIDd: 4.43 3.9-5.3/4.2-5.9 cm LVIDd Index: 1.63 2.4-3.2/2.2-3.1 cm/m2 LVIDs: 2.68 2.0-3.6 cm LVPWd: 1.27 0.7-1.1 cm LA Diam: 3.40 2.7-3.8/3.0-4.0 cm LAIDs Index: 1.25 1.5-2.3 cm/m2 LV Mass: 261.74 67-162/88-224 g LV Mass Index: 96.58 43-95/49-115 g/m2 LVOT Diam: 2.00 3.0+(-)1.3 cm Aortic Valve AoV Pk Aidan: 1.16 AoV Mn Aidan: 0.74 AoV VTI: 0.19 AoV Pk Grad: 5.00 Aov Mn Grad: 3.00 LVOT LVOT Diam: 2.00 LVOT Area: 3.14 Tricuspid Valve TR Pk Aidan: 2.40 TR Pk Grad: 23.00 RA Press: 8.00 RVSP: 31.00 Great Vessels Aorta Sinus of Valsalva: 4.24 2.0-3.[address] [place]: 3.28 1.7-3.4 cm Ao Asc: 3.80 2.1-3.4 cm Updated in Other Vendor System with Status of Final Pravin Pardo MD electronically signed on 03/27/2022 2:34:05 PM with status of Final
[2022-03-27 07:16] LABS: Basophils Percent Auto 0.5 % (0-2); Eosinophils Absolute Auto 0.1 X10*3/uL (0.0-0.4); Eosinophils Percent Auto 0.8 % (0-4); Hematocrit 44.1 % (42.0-52.0); Hemoglobin 14.3 g/dl (14.0-18.0); Imm Gran Abs Auto 0.03 X10*3/uL (0.00-0.03); Imm Gran Pct Auto 0.4 % (0.0-0.4); Lymphocytes Absolute Auto 1.1 X10*3/uL (1.2-4.9); Lymphocytes Percent Auto 15.3 % (20-40); Mean Corpuscular HGB Conc 32.4 g/dl (31.0-36.0); Mean Corpuscular Hemoglobin 31.7 pg (27.0-33.0); Mean Corpuscular Volume 97.8 fL (80.0-98.0); Mean Platelet Volume 9.7 fL (9.4-12.4); Monocytes Absolute Auto 0.7 X10*3/uL (0.1-1.2); Monocytes Percent Auto 9.9 % (2-11); Neutrophils Absolute Auto 5.4 x10*3/uL (2.0-8.3); Neutrophils Percent Auto 73.1 % (45-73); Platelet Count 210 X10*3/uL (160-400); Red Blood Count 4.51 X10*6/uL (4.60-5.80); Red Cell Distribution Width 13.1 % (11.0-16.0); White Blood Count 7.4 X10*3/uL (4.8-10.8)
[2022-03-27 07:22] LABS: Anion Gap 13 (12-20); Blood Urea Nitrogen 18 mg/dL (9-16); Calcium 8.6 mg/dL (8.4-10.2); Carbon Dioxide 27 mmol/L (22-29); Chloride 104 mmol/L (96-108); Creatinine Clr Calc Pharmacy 154.6; Estimated Glomerular Filt Rate > 60; Glucose Random 101 mg/dL (60-115); Potassium 3.6 mmol/L (3.3-5.1); Sodium 140 mmol/L (135-145)
[2022-03-27 07:31] VITALS: BP 112/82; PULSE 64; RESP 25; O2SAT 99
[2022-03-27] MEDS: Furosemide 40 MG/4 ML VIAL IVPUSH (07:48)
[2022-03-27] MEDS: 0.9 % Sodium Chloride Flush 3 ML SYRINGE IVFLUSH ×2 (07:48→15:47)
--- NOTE | 2022-03-27 07:50 | PC.NURSE ---
a flutter on monitor, skin wpd, sleeping and easily woken, nad, denies pain but states discomfort in chest all night, quickly back to sleep
--- NOTE | 2022-03-27 10:49 | PM.CNCAR ---
History of Present Illness History of Present Illness Date of Service: 03/27/22 Chief complaint: CHF/ AFIB with RVR Narrative: This is a cardiology consultation regarding chest discomfort as well as atrial fibrillation. Patient was recently seen by in office. He has a background of paroxysmal atrial fibrillation, morbid obesity, prior DVT/PE as well as IVC filter that was recently removed [facility] and IVC stenting performed. Based on the recent office notes, it seems that he had an episode of atrial fibrillation while he was at [facility] but when he came to the office, he was rather in sinus rhythm. Then it also describes some chest discomfort. At that time, notes a with exercise and also while lying down. When I questioned him, he states that he gets chest pain randomly. No specific patterns and can happen with rest and can happen with exertion and can essentially happen any time. Hence quite atypical for angina. Then a stress test ordered for further evaluation. In the interim, he is admitted with chest pain that felt like pressure, with mild nausea. In the ER, he was found to be in atrial fibrillation with rapid rate and he was given IV diltiazem. Then he was also thought to have mild congestion and given IV Lasix. Then he was admitted. Currently he is upset that he is in the ER but otherwise no specific complaints. No chest pain at this time. He was on diltiazem drip but not anymore. Review of Systems Review of Systems: Yes all other systems are reviewed and are negative Constitutional: Constitutional: Reports as per HPI Eyes: Eyes: Reports as per HPI ENT: Reports as per HPI Cardiovascular: Cardiovascular: Reports as per HPI, Denies acrocyanosis, Denies cool extremities, Reports chest pain, Denies leg edema, Denies lightheadedness, Reports palpitations and Denies dyspnea Respiratory: Respiratory: Reports as per HPI, Reports no additional respiratory complaints and Denies dyspnea Gastrointestinal: Gastrointestinal: Reports as per HPI and Reports no additional gastrointestinal complaints Genitourinary: Genitourinary: Reports no additional male genitourinary complaints and Reports as per HPI Musculoskeletal: Musculoskeletal: Reports no additional musculoskeletal complaints and Reports as per HPI Integumentary/Breasts: Skin/Breast: Reports system reviewed and no additional complaints, except as docu Neurologic: Reports system reviewed and no additional complaints, except as documented and Reports as per HPI Psychiatric: Psychiatric: Reports no additional psychiatric complaints and Reports as per HPI Endocrine: Endocrine: Reports no additional endocrine complaints, Reports as per HPI and Reports palpitations Hematologic/Lymphatic: Hematologic/Lymphatic: Reports no additional hematologic/lymphatic complaints and Reports as per HPI Allergic/Immunologic: Allergic/Immunologic: Reports no additional allergic/immunologic complaints and Reports as per HPI PMFSH Past Medical History Medical History Asthma Depression Dyspnea Family history of stent GERD (gastroesophageal reflux disease) History of kidney stones Hyperlipidemia Lumbar disc disease Lumbar disc prolapse with root compression Lymphedema Migration of vascular stent Morbid obesity Neurogenic bladder OA (osteoarthritis) Pulmonary embolus Uncomplicated opioid dependence Venous stasis Family History Family History Mother Diabetes Father Brain cancer Sister Diabetes Sister Diabetes Sister Diabetes Brother Blind Brother No problems noted. Brother No problems noted. Brother No problems noted. Brother No problems noted. Daughter No problems noted. Daughter Mental health disorder Son Mental health disorder Son No problems noted. Son No problems noted. Surgical History Surgical History History of esophagogastroduodenoscopy (EGD) Hx of colonoscopy Hx of eye surgery Hx of gastric bypass S/P appendectomy S/P IVC filter Social History Social History Alcohol intake: former Year quit: 1979 Patient Tobacco Use Status: Former Tobacco user Quit Date: Years Smoked: 2 Use of substances other than those prescribed or required for medical reasons: No Advance Directives: Yes Advance Directives on File: Yes Advance Directives Date on File: 08/14/21 Current occupational status: disabled Current occupation: rt handed Meds Allergies Allergy/AdvReac Type Severity Reaction Status Date / Time cefaclor [From [facility]] Allergy Severe hives Verified 03/19/22 15:20 epanolol Allergy Severe hives Verified 03/19/22 15:20 misoprostol Allergy Severe rash Verified 03/19/22 15:20 NSAIDS (Non-Steroidal Allergy Severe GI upset Verified 03/19/22 15:20 Anti-Inflamma Penicillins Allergy Severe hives, Verified 03/19/22 15:20 rash, itching Sulfa (Sulfonamide Allergy Severe Hives Verified 03/19/22 15:20 Antibiotics) Cephalosporins Allergy Intermediate hives Verified 03/19/22 15:20 amoxicillin Allergy Mild rash Verified 03/19/22 15:20 vancomycin Allergy Mild itching Verified 03/19/22 15:20 clindamycin AdvReac Intermediate Rash Verified 03/19/22 15:20 Active Medications: Current Medications Acetaminophen (Acetaminophen 325 Mg Tablet) 650 mg PO Q6H PRN PRN Reason: Pain, Mild (Pain Scale 1-3) Last Admin: 03/26/22 23:48 Dose: 650 mg Albuterol Sulfate (Albuterol Sulfate 90 Mcg 8 Gm Inhaler) 1 puff INHALE QID PRN PRN Reason: Shortness Of Breath Apixaban (Apixaban 5 Mg Tablet) 5 mg PO BID [facility] Cyanocobalamin (Cyanocobalamin (Vitamin B-12) 500 Mcg Tablet) 500 mcg PO DAILY [facility]OANDY Furosemide (Furosemide 40 Mg/4 Ml Vial) 40 mg IVPUSH DAILY YOANDY; Protocol Last Admin: 03/27/22 07:48 Dose: 40 mg Furosemide (Furosemide 20 Mg Tablet) 20 mg PO DAILY YOANDY; Protocol Diltiazem HCl 125 mg/ Sodium (Chloride) 125 mls @ 0 mls/hr IVCONT .Q0M YOANDY; Protocol Last Titration: 03/26/22 22:30 Dose: 10 mg/hr, 10 mls/hr Lisinopril (Lisinopril 20 Mg Tablet) 20 mg PO DAILY YOANDY; Protocol Melatonin (Melatonin 3 Mg Tablet) 6 mg PO BEDTIME PRN PRN Reason: Insomnia Last Admin: 03/26/22 23:47 Dose: 6 mg Metoprolol Succinate (Metoprolol Succinate Er 100 Mg Tab.Er.24h) 100 mg PO DAILY YOANDY; Protocol Montelukast Sodium (Montelukast Sodium 10 Mg Tablet) 10 mg PO BEDTIME [facility] Multivitamins/Vitamin C (Multivitamin Tablet) 1 tab PO DAILY [facility]Y Non-Formulary Medication (Calcium Carbonate-Vitamin D3) 1 cap PO DAILY [facility]ANDY Non-Formulary Medication (Ferrous Sulfate) 1 tab PO QAM [facility]ANDY Non-Formulary Medication (Fluticasone Propion-Salmeterol [Advair Diskus]) 1 inhalation INHALE BID [facility]OANDY Omeprazole (Omeprazole 40 Mg Capsule.Dr) 40 mg PO DAILY [facility] Oxybutynin Chloride (Oxybutynin Chloride Er 5 Mg Tab.Er.24) 10 mg PO DAILY [facility] Pharmacy Consult (Consult Rx Perform Med Rec) 1 each MISCELLANE ONCE PRN PRN Reason: Consult order Senna (Sennosides 8.6 Mg Tablet) 17.2 mg PO BEDTIME PRN PRN Reason: Constipation Sertraline HCl (Sertraline Hcl 50 Mg Tablet) 50 mg PO DAILY [facility] Sodium Chloride (0.9 % Sodium Chloride Flush 3 Ml Syringe) 3 ml IVFLUSH QSHIFT [facility] Last Admin: 03/27/22 07:48 Dose: 3 ml Tamsulosin HCl (Tamsulosin Hcl 0.4 Mg Capsule) 0.4 mg PO BEDTIME [facility] Vitamin D (Cholecalciferol (Vitamin D3) 25 Mcg Tablet) 50 mcg PO DAILY [facility] Home Medications Medication Instructions Recorded Confirmed Last Taken Type albuterol sulfate 90 mcg/actuation 1 inh inhalation QID PRN Shortness 05/13/21 03/26/22 Unknown History aerosol inhaler Of Breath montelukast 10 mg tablet 10 mg PO BEDTIME 05/13/21 03/26/22 03/25/22 History omeprazole 40 mg capsule,delayed 40 mg PO DAILY 05/13/21 03/26/22 03/26/22 History release sertraline 50 mg tablet 50 mg PO DAILY 05/13/21 03/26/22 03/26/22 History furosemide 20 mg tablet 20 mg PO DAILY 08/11/21 03/26/22 03/26/22 History apixaban 5 mg tablet 5 mg PO BID 02/06/22 03/26/22 03/26/22 History calcium carbonate 600 mg-vitamin 1 cap PO DAILY 02/06/22 03/26/22 03/26/22 History D3 10 mcg (400 unit) capsule fluticasone 250 mcg-salmeterol 50 1 inh inhalation BID 02/06/22 03/26/22 03/26/22 History mcg/dose blistr powdr for inhalation (Advair Diskus) multivitamin 1 tab PO DAILY 02/06/22 03/26/22 03/26/22 History methylcellulose (laxative) 500 mg 500 mg PO TID PRN Constipation 03/19/22 03/26/22 03/26/22 History tablet (Citrucel) ferrous sulfate 325 mg (65 mg 1 tab PO QAM 06/07/0903/26/22 03/26/22 History iron) tablet Physical Exam Vital Signs: Vital Signs: Last Vital Signs Temp 97.7 F 03/26/22 22:29 Pulse 64 03/27/22 07:31 Resp 25 H 03/27/22 07:31 BP 112/82 03/27/22 07:31 Pulse Ox 99 03/27/22 07:31 O2 Del Method 03/27/22 07:31 BMI result Body Mass Index 56.1 Const: General: comfortable and no acute distress Orientation/consciousness: patient oriented x3 HEENT: Other: Unremarkable Head: Yes normal to inspection Neck: Neck: Yes normal visual inspection Chest: Chest palpation & inspection: normal inspection of the chest Resp: Auscultation: clear to auscultation bilaterally Cardio: Palpation: normal PMI Heart sounds: S1 normal heart sound present, S2 normal heart sound present, no gallops, no murmurs and no rubs GI: Palpation (GI): Soft to palpation Back/Spine/Pelvis: Other: unremarkable Skin: General skin exam: no rashes or lesions noted Neuro: General: patient oriented x3 Extrem: General: Yes normal to inspection Psych: Mental Status: mental status grossly normal Objective Labs and Meds Result diagrams: 03/27/22 06:42 03/27/22 06:42 Lab results: Laboratory Results - last 24 hr 03/26/22 03/26/22 03/26/22 15:43 15:54 15:54 WBC 10.6 RBC 4.58 L Hgb 14.4 Hct 43.8 MCV 95.6 MCH 31.4 MCHC 32.9 RDW 12.9 Plt Count 227 MPV 9.4 Immature Gran % (Auto) 0.3 Neut % (Auto) 86.6 H Lymph % (Auto) 5.7 L [place] % (Auto) 6.4 Eos % (Auto) 0.5 Baso % (Auto) 0.5 Lymph # (Auto) 0.6 L [place] # (Auto) 0.7 Eos # (Auto) 0.1 Baso # (Auto) 0.1 Abs Immat Gran (auto) 0.03 Absolute Neuts (auto) 9.2 H Absolute Nucleated RBC 0.000 Nucleated RBC % (auto) 0.0 PT INR Sodium 138 Potassium 3.9 Chloride 106 Carbon Dioxide 24 Anion Gap 12 BUN 15 Creatinine 0.79 Estim Creat Clear Calc 162.5 Estimated GFR > 60 Random Glucose 112 Calcium 8.7 Magnesium 1.9 Total Bilirubin 0.8 Direct Bilirubin 0.3 AST 22 ALT 15 Alkaline Phosphatase 80 Troponin I High Sens B-Natriuretic Peptide Total Protein 7.3 Albumin 4.1 TSH Ethyl Alcohol COVID-19 (ANDREAS) Negative [email or web address] Clin Com See Note 03/26/22 03/26/22 03/26/22 15:54 15:54 15:54 WBC RBC Hgb Hct MCV MCH MCHC RDW Plt Count MPV Immature Gran % (Auto) Neut % (Auto) Lymph % (Auto) [place] % (Auto) Eos % (Auto) Baso % (Auto) Lymph # (Auto) [place] # (Auto) Eos # (Auto) Baso # (Auto) Abs Immat Gran (auto) Absolute Neuts (auto) Absolute Nucleated RBC Nucleated RBC % (auto) PT 12.2 INR 1.1 Sodium Potassium Chloride Carbon Dioxide Anion Gap BUN Creatinine Estim Creat Clear Calc Estimated GFR Random Glucose Calcium Magnesium Total Bilirubin Direct Bilirubin AST ALT Alkaline Phosphatase Troponin I High Sens 10.0 B-Natriuretic Peptide 281 H Total Protein Albumin TSH Ethyl Alcohol COVID-19 (ANDREAS) [email or web address] 03/26/22 03/26/22 03/26/22 15:54 15:54 18:29 WBC RBC Hgb Hct MCV MCH MCHC RDW Plt Count MPV Immature Gran % (Auto) Neut % (Auto) Lymph % (Auto) [place] % (Auto) Eos % (Auto) Baso % (Auto) Lymph # (Auto) [place] # (Auto) Eos # (Auto) Baso # (Auto) Abs Immat Gran (auto) Absolute Neuts (auto) Absolute Nucleated RBC Nucleated RBC % (auto) PT INR Sodium Potassium Chloride Carbon Dioxide Anion Gap BUN Creatinine Estim Creat Clear Calc Estimated GFR Random Glucose Calcium Magnesium Total Bilirubin Direct Bilirubin AST ALT Alkaline Phosphatase Troponin I High Sens 22.7 D B-Natriuretic Peptide Total Protein Albumin TSH 0.94 Ethyl Alcohol < 10 COVID-19 (ANDREAS) [email or web address] 03/27/22 03/27/22 06:42 06:42 WBC 7.4 RBC 4.51 L Hgb 14.3 Hct 44.1 MCV 97.8 MCH 31.7 MCHC 32.4 RDW 13.1 Plt Count 210 MPV 9.7 Immature Gran % (Auto) 0.4 Neut % (Auto) 73.1 H Lymph % (Auto) 15.3 L [place] % (Auto) 9.9 Eos % (Auto) 0.8 Baso % (Auto) 0.5 Lymph # (Auto) 1.1 L [place] # (Auto) 0.7 Eos # (Auto) 0.1 Baso # (Auto) 0.0 Abs Immat Gran (auto) 0.03 Absolute Neuts (auto) 5.4 Absolute Nucleated RBC 0.000 Nucleated RBC % (auto) 0.0 PT INR Sodium 140 Potassium 3.6 Chloride 104 Carbon Dioxide 27 Anion Gap 13 BUN 18 H Creatinine 0.83 Estim Creat Clear Calc 154.6 Estimated GFR > 60 Random Glucose 101 Calcium 8.6 Magnesium Total Bilirubin Direct Bilirubin AST ALT Alkaline Phosphatase Troponin I High Sens B-Natriuretic Peptide Total Protein Albumin TSH Ethyl Alcohol COVID-19 (ANDREAS) COVID-19 Clin Com ECG Interpretation: Based on the EKG, rhythm seems to be atrial flutter with rapid rate at 123/Min with nonspecific ST-T changes. Currently he is in atrial flutter with controlled rate. Imaging Radiologist's impression: Impressions Chest X-Ray 03/26/22 15:38 IMPRESSION: Cardiomegaly with mild pulmonary vascular congestion. Assessment and Plan (1) Atrial flutter with rapid ventricular response: Status: Acute (2) Chest pain: Qualifiers: Chest pain type: precordial pain Qualified Code(s): R07.2 - Precordial pain Status: Acute (3) Hypertensive emergency: Status: Acute Plan Last echocardiogram with LVEF of 55-60%; no significant valvular issues; moderate pulmonary hypertension and mild ascending aortic dilatation. High sensitivity troponins are 10 and 22.7. Cardiac BNP is 281. Chest x-ray report have cardiomegaly and mild pulmonary vascular congestion. With regard to atrial fibrillation history, he is on metoprolol ER 100 mg at home. Also on Eliquis. We will add some diltiazem as well at diltiazem CD 1 20 mg daily. His blood pressure is on the lower side today but when he came in it was actually quite high. Indeed initial blood pressure was 217/106 mm Hg. Overall, chest discomfort could be from combination of uncontrolled hypertension as well as from atrial flutter with rapid rate. Will make medication changes as above and monitor him. The small troponin bump is still within acceptable limits and most likely related to the above including uncontrolled pressures as well as atrial flutter with rapid rate. Do not believe he had any acute coronary syndrome. If he does not convert to sinus by himself, then may need cardioversion at some point. With regard to chest pain itself he already has an outpatient stress test ordered and we may possibly keep that appointment. Procedures Date of Service Date of Service: 03/27/22
[2022-03-27] MEDS: Cholecalciferol (Vitamin D3) 25 MCG TABLET 50 MCG PO (11:07)
[2022-03-27] MEDS: Metoprolol Succinate ER 100 MG TAB.ER.24H PO (11:07)
[2022-03-27] MEDS: lisinopriL 20 MG TABLET PO (11:08)
[2022-03-27] MEDS: Multivitamin TABLET 1 TAB PO (11:08)
[2022-03-27] MEDS: Apixaban 5 MG TABLET PO ×2 (11:08→21:14)
[2022-03-27] MEDS: Furosemide 20 MG TABLET PO (11:08)
[2022-03-27 11:10] VITALS: BP 150/84; PULSE 93; RESP 22; O2SAT 94
[2022-03-27] MEDS: Sertraline HCL 50 MG TABLET PO (11:15)
[2022-03-27] MEDS: dilTIAZem HCL CD 120 MG CAP.ER.DEG PO (11:15)
[2022-03-27] MEDS: Omeprazole 40 MG CAPSULE.DR PO (11:16)
--- NOTE | 2022-03-27 12:51 | MHC.CM.PN ---
IMM 03/27/22, EMR REVIEWED PT ADMITTED W/CHF AND AFIB W/RVR, CM MET W/PT WHO REPORTS HE LIVES W/ AND 2 CHILDREN, PT USES A CANE AND CPAP, IS INDEP W/HIS OWN CARE AND DENIES NEED FOR HOME SERVICES OR STR, PT VERIFIES PCP ON FILE ARIN FRITZ, PFIZER X3, HCP PEEWEE [phone] AND HIS SISTER ANETA ALONSO, PT DOES NOT KNOW NUMBER AND NOT FEELING WELL SO CM ENDED INTERVIEW. D/C PLAN: HOME W/NO SERVICES AND FAMILY FOR TRANSPORT
--- NOTE | 2022-03-27 14:42 | HO.PM.IMPN ---
Subjective Subjective Date of Service: 03/27/22 Interval History: no acute issues overnight. No further meme Review of Systems denies chest pain Denies shortness of breath Denies nausea vomiting diarrhea Denies fever chills Physical Exam Vital Signs: Vital Signs: Last Vital Signs Temp 97.7 F 03/26/22 22:29 Pulse 93 03/27/22 11:10 Resp 22 H 03/27/22 11:10 BP 150/84 H 03/27/22 11:10 Pulse Ox 94 03/27/22 11:10 O2 Del Method 03/27/22 11:10 BMI result Body Mass Index 56.1 Const: Other: no acute distress Resp: Other: clear to auscultation bilaterally no rales rhonchi or wheezes Cardio: Other: no S4; positive S1-S2; no S3 murmurs rubs or gallops GI: Other: soft nontender nondistended with normoactive bowel sounds Extrem: Other: no edema bilaterally Objective Data Active Medications Acetaminophen (Acetaminophen 325 Mg Tablet) 650 mg PO Q6H PRN PRN Reason: Pain, Mild (Pain Scale 1-3) Last Admin: 03/26/22 23:48 Dose: 650 mg Documented By: PAYTON Albuterol Sulfate (Albuterol Sulfate 90 Mcg 8 Gm Inhaler) 1 puff INHALE QID PRN PRN Reason: Shortness Of Breath Apixaban (Apixaban 5 Mg Tablet) 5 mg PO BID [facility] Last Admin: 03/27/22 11:08 Dose: 5 mg Documented By: KASSIDY Calcium Carbonate/Cholecalciferol (Calcium + Vitamin D 250 Mg Tablet) 500 mg PO DAILY [facility] Cyanocobalamin (Cyanocobalamin (Vitamin B-12) 500 Mcg Tablet) 500 mcg PO DAILY [facility] Diltiazem HCl (Diltiazem Hcl Cd 120 Mg Cap.Er.Deg) 120 mg PO DAILY [facility]; Protocol Last Admin: 03/27/22 11:15 Dose: 120 mg Documented By: KASSIDY Ferrous Sulfate (Ferrous Sulfate 324 Mg Tablet.Dr) 324 mg PO DAILY [facility] Fluticasone/Vilanterol (Fluticasone/Vilanterol 100/25 Blst.W.Dev) 1 puff INHALE RDAILY [facility] Furosemide (Furosemide 40 Mg/4 Ml Vial) 40 mg IVPUSH DAILY [facility]; Protocol Last Admin: 03/27/22 07:48 Dose: 40 mg Documented By: KASSIDY Furosemide (Furosemide 20 Mg Tablet) 20 mg PO DAILY [facility]; Protocol Last Admin: 03/27/22 11:08 Dose: 20 mg Documented By: KASSIDY Lisinopril (Lisinopril 20 Mg Tablet) 20 mg PO DAILY [facility]; Protocol Last Admin: 03/27/22 11:08 Dose: 20 mg Documented By: KASSIDY Melatonin (Melatonin 3 Mg Tablet) 6 mg PO BEDTIME PRN PRN Reason: Insomnia Last Admin: 03/26/22 23:47 Dose: 6 mg Documented By: PAYTON Metoprolol Succinate (Metoprolol Succinate Er 100 Mg Tab.Er.24h) 100 mg PO DAILY [facility]; Protocol Last Admin: 03/27/22 11:07 Dose: 100 mg Documented By: KASSIDY Montelukast Sodium (Montelukast Sodium 10 Mg Tablet) 10 mg PO BEDTIME [facility] Multivitamins/Vitamin C (Multivitamin Tablet) 1 tab PO DAILY [facility] Last Admin: 03/27/22 11:08 Dose: 1 tab Documented By: KASSIDY Omeprazole (Omeprazole 40 Mg Capsule.Dr) 40 mg PO DAILY@0630 [facility] Last Admin: 03/27/22 11:16 Dose: 40 mg Documented By: KASSIDY Oxybutynin Chloride (Oxybutynin Chloride Er 5 Mg Tab.Er.24) 10 mg PO DAILY [facility] Last Admin: 03/27/22 11:15 Dose: 10 mg Documented By: KASSIDY Pharmacy Consult (Consult Rx Perform Med Rec) 1 each MISCELLANE ONCE PRN PRN Reason: Consult order Senna (Sennosides 8.6 Mg Tablet) 17.2 mg PO BEDTIME PRN PRN Reason: Constipation Sertraline HCl (Sertraline Hcl 50 Mg Tablet) 50 mg PO DAILY [facility] Last Admin: 03/27/22 11:15 Dose: 50 mg Documented By: KASSIDY Sodium Chloride (0.9 % Sodium Chloride Flush 3 Ml Syringe) 3 ml IVFLUSH QSHICHI [facility] Last Admin: 03/27/22 07:48 Dose: 3 ml Documented By: KASSIDY Tamsulosin HCl (Tamsulosin Hcl 0.4 Mg Capsule) 0.4 mg PO BEDTIME [facility] Vitamin D (Cholecalciferol (Vitamin D3) 25 Mcg Tablet) 50 mcg PO DAILY [facility] Last Admin: 03/27/22 11:07 Dose: 50 mcg Documented By: KASSIDY Labs CBC & Chem 7: 03/27/22 06:42 03/27/22 06:42 Labs: Laboratory Results - last 24 hr 03/26/22 03/26/22 03/26/22 15:43 15:54 15:54 MCV 95.6 MCH 31.4 MCHC 32.9 RDW 12.9 Plt Count 227 MPV 9.4 Immature Gran % (Auto) 0.3 Neut % (Auto) 86.6 H Lymph % (Auto) 5.7 L [place] % (Auto) 6.4 Eos % (Auto) 0.5 Baso % (Auto) 0.5 Lymph # (Auto) 0.6 L [place] # (Auto) 0.7 Eos # (Auto) 0.1 Baso # (Auto) 0.1 Abs Immat Gran (auto) 0.03 Absolute Neuts (auto) 9.2 H Absolute Nucleated RBC 0.000 Nucleated RBC % (auto) 0.0 PT INR Anion Gap 12 Estim Creat Clear Calc 162.5 Estimated GFR > 60 Random Glucose 112 Calcium 8.7 Magnesium 1.9 Total Bilirubin 0.8 Direct Bilirubin 0.3 AST 22 ALT 15 Alkaline Phosphatase 80 Troponin I High Sens B-Natriuretic Peptide Total Protein 7.3 Albumin 4.1 TSH Ethyl Alcohol COVID-19 (ANDREAS) Negative COVID-19 Clin Com See Note 03/26/22 03/26/22 03/26/22 15:54 15:54 15:54 MCV MCH MCHC RDW Plt Count MPV Immature Gran % (Auto) Neut % (Auto) Lymph % (Auto) [place] % (Auto) Eos % (Auto) Baso % (Auto) Lymph # (Auto) [place] # (Auto) Eos # (Auto) Baso # (Auto) Abs Immat Gran (auto) Absolute Neuts (auto) Absolute Nucleated RBC Nucleated RBC % (auto) PT 12.2 INR 1.1 Anion Gap Estim Creat Clear Calc Estimated GFR Random Glucose Calcium Magnesium Total Bilirubin Direct Bilirubin AST ALT Alkaline Phosphatase Troponin I High Sens 10.0 B-Natriuretic Peptide 281 H Total Protein Albumin TSH Ethyl Alcohol COVID-19 (ANDREAS) COVID-19 Clin Com 03/26/22 03/26/22 03/26/22 15:54 15:54 18:29 MCV MCH MCHC RDW Plt Count MPV Immature Gran % (Auto) Neut % (Auto) Lymph % (Auto) [place] % (Auto) Eos % (Auto) Baso % (Auto) Lymph # (Auto) [place] # (Auto) Eos # (Auto) Baso # (Auto) Abs Immat Gran (auto) Absolute Neuts (auto) Absolute Nucleated RBC Nucleated RBC % (auto) PT INR Anion Gap Estim Creat Clear Calc Estimated GFR Random Glucose Calcium Magnesium Total Bilirubin Direct Bilirubin AST ALT Alkaline Phosphatase Troponin I High Sens 22.7 D B-Natriuretic Peptide Total Protein Albumin TSH 0.94 Ethyl Alcohol < 10 COVID-19 (ANDREAS) COVID-DonorPro 03/27/22 03/27/22 06:42 06:42 MCV 97.8 MCH 31.7 MCHC 32.4 RDW 13.1 Plt Count 210 MPV 9.7 Immature Gran % (Auto) 0.4 Neut % (Auto) 73.1 H Lymph % (Auto) 15.3 L [place] % (Auto) 9.9 Eos % (Auto) 0.8 Baso % (Auto) 0.5 Lymph # (Auto) 1.1 L [place] # (Auto) 0.7 Eos # (Auto) 0.1 Baso # (Auto) 0.0 Abs Immat Gran (auto) 0.03 Absolute Neuts (auto) 5.4 Absolute Nucleated RBC 0.000 Nucleated RBC % (auto) 0.0 PT INR Anion Gap 13 Estim Creat Clear Calc 154.6 Estimated GFR > 60 Random Glucose 101 Calcium 8.6 Magnesium Total Bilirubin Direct Bilirubin AST ALT Alkaline Phosphatase Troponin I High Sens B-Natriuretic Peptide Total Protein Albumin TSH Ethyl Alcohol COVID-19 (ANDREAS) COVID-19 Clin Com Assessment and Plan (1) Atrial flutter with rapid ventricular response: Status: Acute (2) Chest pain: Status: Acute (3) Hypertensive emergency: Status: Acute Plan 56-year-old male with a past medical history hypertension, hyperlipidemia, paroxysmal AFib on Eliquis, GERD presented to the hospital with a chief complaint of chest pain. 1.Chest pain - no appreciable bump in troponin - no chest pain now the blood pressure is control - further outpatient workup as per Cardiology 2.CHF secondary to hypertensive urgency - proBNP mildly elevated in backdrop of hypertensive urgency - will resume p.o. Lasix given normalization of BP 3.Aflutter with RVR - continue Eliquis as patient may need cardioversion - diltiazem CD added as per Cardiology - continue beta-blockade 4.Hypertension - acceptable control on current therapies -lisinopril, metoprolol Eliquis full code requires ongoing hospitalization to stabilize a flutter and hypertension Code status: Full code Quality Stroke Does the patient have a stroke diagnosis?: No VTE Prior VTE?: No VTE Risk Level:: Medical - moderate - high VTE Device Contraindication: Treatment Not Indicated VTE Drug Contraindication: N/A - Med Ordered
[2022-03-27 15:43] VITALS: BP 116/77; PULSE 69; RESP 22; TEMP 36.6; O2SAT 93
[2022-03-27 20:12] VITALS: BP 105/46; PULSE 78; RESP 16; TEMP 36.6; O2SAT 97
--- NOTE | 2022-03-27 20:39 | PC.NURSE ---
called pharmacy for missing meds
[2022-03-27] MEDS: Montelukast Sodium 10 MG TABLET PO (21:14)
[2022-03-27] MEDS: Tamsulosin HCL 0.4 MG CAPSULE PO (21:14)
--- NOTE | 2022-03-27 21:25 | PC.NURSE ---
patient a&ox3, condom cath came off, pt requested to just use urinal states its easier to use the urinal in these beds, cardiac cath technician intact, nsr 60s,vss, denies pain/sob-speaking full sentences lungs clear/diminished, call landrum within reach, will continue to monitor.
[2022-03-28] MEDS: 0.9 % Sodium Chloride Flush 3 ML SYRINGE IVFLUSH ×2 (02:12→09:03)
[2022-03-28 05:58] VITALS: BP 95/53; PULSE 52; RESP 19; TEMP 36.9
[2022-03-28 06:41] LABS: MANUAL DIFF FLAG NO
[2022-03-28] MEDS: Omeprazole 40 MG CAPSULE.DR PO (06:49)
[2022-03-28 07:03] LABS: Basophils Percent Auto 0.4 % (0-2); Eosinophils Absolute Auto 0.2 X10*3/uL (0.0-0.4); Eosinophils Percent Auto 2.2 % (0-4); Hematocrit 42.6 % (42.0-52.0); Hemoglobin 13.8 g/dl (14.0-18.0); Imm Gran Abs Auto 0.03 X10*3/uL (0.00-0.03); Imm Gran Pct Auto 0.4 % (0.0-0.4); Lymphocytes Absolute Auto 1.3 X10*3/uL (1.2-4.9); Lymphocytes Percent Auto 19.1 % (20-40); Mean Corpuscular HGB Conc 32.4 g/dl (31.0-36.0); Mean Corpuscular Hemoglobin 31.4 pg (27.0-33.0); Mean Corpuscular Volume 96.8 fL (80.0-98.0); Mean Platelet Volume 9.9 fL (9.4-12.4); Monocytes Absolute Auto 0.8 X10*3/uL (0.1-1.2); Monocytes Percent Auto 11.4 % (2-11); Neutrophils Absolute Auto 4.5 x10*3/uL (2.0-8.3); Neutrophils Percent Auto 66.5 % (45-73); Platelet Count 227 X10*3/uL (160-400); White Blood Count 6.8 X10*3/uL (4.8-10.8)
[2022-03-28 07:13] LABS: Alanine Aminotransferase 11 U/L (0-40); Albumin Level 3.7 g/dL (3.5-5.0); Alkaline Phosphatase 70 U/L (39-117); Anion Gap 14 (12-20); Aspartate Amino Transferase 17 U/L (5-37); Bilirubin Total 1.1 mg/dL (0.0-1.0); Blood Urea Nitrogen 32 mg/dL (9-16); Calcium 8.8 mg/dL (8.4-10.2); Carbon Dioxide 25 mmol/L (22-29); Chloride 104 mmol/L (96-108); Creatinine Clr Calc Pharmacy 107.8; Estimated Glomerular Filt Rate > 60; Glucose Fasting 97 mg/dL (60-99); Potassium 3.8 mmol/L (3.3-5.1); Sodium 139 mmol/L (135-145); Total Protein 6.8 g/dL (6.5-8.0)
[2022-03-28 09:01] VITALS: BP 98/59; PULSE 61; RESP 13; TEMP 36.9; O2SAT 95
[2022-03-28] MEDS: Calcium + Vitamin D 250 MG TABLET 500 MG PO (09:02)
[2022-03-28] MEDS: Cholecalciferol (Vitamin D3) 25 MCG TABLET 50 MCG PO (09:02)
[2022-03-28] MEDS: Cyanocobalamin (Vitamin B-12) 500 MCG TABLET PO (09:02)
[2022-03-28] MEDS: Apixaban 5 MG TABLET PO (09:03)
[2022-03-28] MEDS: Multivitamin TABLET 1 TAB PO (09:03)
[2022-03-28] MEDS: Ferrous Sulfate 324 MG TABLET.DR PO (09:03)
[2022-03-28] MEDS: Sertraline HCL 50 MG TABLET PO (09:03)
[2022-03-28 10:04] VITALS: BP 118/57; PULSE 65; RESP 19
[2022-03-28] MEDS: dilTIAZem HCL CD 120 MG CAP.ER.DEG PO (10:04)
[2022-03-28] MEDS: Metoprolol Succinate ER 100 MG TAB.ER.24H PO (10:05)
[2022-03-28] MEDS: Furosemide 20 MG TABLET PO (10:05)
--- NOTE | 2022-03-28 10:32 | PM.PNCARD ---
Subjective Subjective Date of Service: 03/28/22 Interval history: He states that he feels great. No cardiac symptoms. No chest pain. Overall much better than arrival. Also converted to sinus rhythm. Review of Systems Review of Systems denies chest pain Denies shortness of breath Denies nausea vomiting diarrhea Denies fever chills Yes all other systems are reviewed and are negative Constitutional: Reports as per HPI Eyes: Reports as per HPI Reports as per HPI Cardiovascular: Reports as per HPI, Denies acrocyanosis, Denies cool extremities, Denies chest pain, Denies leg edema, Denies lightheadedness, Denies palpitations and Denies dyspnea Respiratory: Reports as per HPI, Reports no additional respiratory complaints and Denies dyspnea Gastrointestinal: Reports as per HPI and Reports no additional gastrointestinal complaints Genitourinary: Reports no additional male genitourinary complaints and Reports as per HPI Musculoskeletal: Reports no additional musculoskeletal complaints and Reports as per HPI Skin/Breast: Reports system reviewed and no additional complaints, except as docu Reports system reviewed and no additional complaints, except as documented and Reports as per HPI Psychiatric: Reports no additional psychiatric complaints and Reports as per HPI Endocrine: Reports no additional endocrine complaints, Reports as per HPI and Denies palpitations Hematologic/Lymphatic: Reports no additional hematologic/lymphatic complaints and Reports as per HPI Allergic/Immunologic: Reports no additional allergic/immunologic complaints and Reports as per HPI Physical Exam Vital Signs: Last Vital Signs Temp 98.4 F 03/28/22 09:01 Pulse 65 03/28/22 10:04 Resp 19 03/28/22 10:04 BP 118/57 L 03/28/22 10:04 Pulse Ox 95 03/28/22 09:01 O2 Del Method 03/28/22 09:01 BMI result Body Mass Index 56.1 Const General: comfortable and no acute distress Orientation/consciousness: patient oriented x3 HEENT Other: Unremarkable Head: Yes normal to inspection Neck Neck: Yes normal visual inspection Chest Chest palpation & inspection: normal inspection of the chest Resp Auscultation: clear to auscultation bilaterally Cardio Palpation: normal PMI Heart sounds: S1 normal heart sound present, S2 normal heart sound present, no gallops, Murmur heart sound present systolic I/ and at the right sternal border and no rubs GI Palpation (GI): Soft to palpation Back/Spine/Pelvis Other: unremarkable Skin General skin exam: no rashes or lesions noted Neuro General: patient oriented x3 Extrem Other: Chronic changes. Psych Mental Status: mental status grossly normal Objective Labs and Meds Result diagrams: 03/28/22 05:49 03/28/22 05:49 Lab results: Laboratory Results - last 24 hr 03/28/22 03/28/22 05:49 05:49 WBC 6.8 RBC 4.40 L Hgb 13.8 L Hct 42.6 MCV 96.8 MCH 31.4 MCHC 32.4 RDW 13.0 Plt Count 227 MPV 9.9 Immature Gran % (Auto) 0.4 Neut % (Auto) 66.5 Lymph % (Auto) 19.1 L [place] % (Auto) 11.4 H Eos % (Auto) 2.2 Baso % (Auto) 0.4 Lymph # (Auto) 1.3 [place] # (Auto) 0.8 Eos # (Auto) 0.2 Baso # (Auto) 0.0 Abs Immat Gran (auto) 0.03 Absolute Neuts (auto) 4.5 Absolute Nucleated RBC 0.000 Nucleated RBC % (auto) 0.0 Sodium 139 Potassium 3.8 Chloride 104 Carbon Dioxide 25 Anion Gap 14 BUN 32 H D Creatinine 1.19 Estim Creat Clear Calc 107.8 Estimated GFR > 60 Fasting Glucose 97 Calcium 8.8 Total Bilirubin 1.1 H AST 17 ALT 11 Alkaline Phosphatase 70 Total Protein 6.8 Albumin 3.7 Progress Note: A&P Assessment and plan (1) Atrial flutter with rapid ventricular response: Status: Acute Assessment and Plan: He converted to sinus rhythm. He was on beta-blockers at home. Diltiazem has been added. This can be continued. Also on anticoagulation, continue without changes. (2) Hypertensive emergency: Status: Acute Assessment and Plan: Initial blood pressure upon arrival was 217/106 mm Hg. Currently essentially normal range. In fact couple blood pressures are on the lower side. If necessary, we can cut back on lisinopril if the trend continues. (3) Chest pain: Status: Acute Assessment and Plan: Could be from combination of uncontrolled blood pressures as well as atrial flutter with rapid rate. Troponins are unremarkable. The very slight increase but within range is most likely from the above 2 diagnoses. He already has an outpatient stress test arranged and he can keep that appointment. Currently he has got no chest pain whatsoever. Completely resolved. Plan Discussed with Dr. Perez. Discussed with RN. Time Spent With Patient Time: Total time spent is greater than 50% in coordination of care (as documented) at patient's floor/unit and/or counseling patient: 38min. Progress Note: Quality Stroke Does the patient have a stroke diagnosis?: No Procedures Date of Service Date of Service: 03/28/22
--- NOTE | 2022-03-28 11:12 | P.DS_ITS ---
DS: Providers Provider Date of Service: 03/28/22 Date of admission: 03/26/22 22:23 Date of discharge: 03/28/22 Primary care physician: Destiny Trinidad MD Consults: 03/26/22 22:23 Consult to Cardiology Routine Consulting Provider: Pravin Pardo Reason for consultation: Afib, CHF, chest pain DS: Diagnosis Discharge Diagnosis (1) Atrial flutter with rapid ventricular response: Status: Acute (2) Hypertensive emergency: Status: Acute (3) Chest pain: Status: Acute DS: Summary Hospital Course Hospital Course: 56-year-old male with a past medical history hypertension, hyperlipidemia, paroxysmal AFib on Eliquis, GERD presented to the hospital with a chief complaint of chest pain.? Patient reports that this morning it out chest pain, pressure-like in nature, nonradiating, associated mild nausea, denies any shortness of breath.? Reports he had similar episode about a week ago and has seen Cardiology-planned for outpatient stress test.? ER course: Per ER team patient's EKG was nonischemic, troponins were 10-22; patient refused aspirin given history of gastric bypass surgery. Patient was noted to be in AFib with rapid ventricle response; patient was given diltiazem IV push followed with placed diltiazem drip.? Also noted to have mild congestion; given IV Lasix Hospital Course Admitted to telemetry; seen in consultation by Cardiology who added Cardizem CD to regimen. Approximately 24 hours into admission patient spontaneously converted to normal sinus rhythm; Has remained in sinus rhythm since conversion however blood pressures have been on the soft side. Given the need for Cardizem CD lisinopril be decreased to 10 mg daily and metoprolol will be continued at previous dosing. On the day of discharge was seen by Cardiology who felt this was appropriate for discharge and has outpatient stress test scheduled the week of 03/29/2022. He will comply with this stress test and follow-up thereafter with Cardiology and PCP Time Spent with Patient Time attestation: Total time spent providing and/or coordinating discharge services: Discharge coordination time: Greater than 30 minutes Quality: Safe Use of Opioids Does Pt have an Active Cancer Diagnosis on the Problem List?: No Quality: Stroke Does the patient have a stroke diagnosis?: No Physical Exam Vital Signs: Vital Signs: Last Vital Signs Temp 98.4 F 03/28/22 09:01 Pulse 65 03/28/22 10:04 Resp 19 03/28/22 10:04 BP 118/57 L 03/28/22 10:04 Pulse Ox 95 03/28/22 09:01 O2 Del Method 03/28/22 09:01 BMI result Body Mass Index 56.1 Const: Other: no acute distress Resp: Other: clear to auscultation bilaterally no rales rhonchi or wheezes Cardio: Other: no S4; positive S1-S2; no S3 murmurs rubs or gallops GI: Other: soft nontender nondistended with normoactive bowel sounds Extrem: Other: no edema bilaterally DS: Data Data Completed and Pending Labs on day of discharge: Laboratory Results - last 24 hr 03/28/22 03/28/22 05:49 05:49 WBC 6.8 RBC 4.40 L Hgb 13.8 L Hct 42.6 MCV 96.8 MCH 31.4 MCHC 32.4 RDW 13.0 Plt Count 227 MPV 9.9 Immature Gran % (Auto) 0.4 Neut % (Auto) 66.5 Lymph % (Auto) 19.1 L [place] % (Auto) 11.4 H Eos % (Auto) 2.2 Baso % (Auto) 0.4 Lymph # (Auto) 1.3 [place] # (Auto) 0.8 Eos # (Auto) 0.2 Baso # (Auto) 0.0 Abs Immat Gran (auto) 0.03 Absolute Neuts (auto) 4.5 Absolute Nucleated RBC 0.000 Nucleated RBC % (auto) 0.0 Sodium 139 Potassium 3.8 Chloride 104 Carbon Dioxide 25 Anion Gap 14 BUN 32 H D Creatinine 1.19 Estim Creat Clear Calc 107.8 Estimated GFR > 60 Fasting Glucose 97 Calcium 8.8 Total Bilirubin 1.1 H AST 17 ALT 11 Alkaline Phosphatase 70 Total Protein 6.8 Albumin 3.7 Discharge Plan Discharge Patient Disposition: Home Health Service Discharge Diagnosis: Atrial flutter with RVR Referrals: Destiny Trinidad MD [Primary Care Provider] - 1 Week Discharge Medications: New diltiazem HCl [Cardizem CD] 120 mg Capsule,Extended Release 24hr 120 mg PO DAILY Qty: 30 0RF Protocol: Hold for SBP/HR < HOLD for SBP < : 90 HOLD for HR < : 60 lisinopril 10 mg tablet 10 mg PO DAILY Qty: 30 0RF Continued cholecalciferol (vitamin D3) 50 mcg (2,000 unit) capsule 50 mcg PO DAILY Qty: 30 3RF cyanocobalamin (vitamin B-12) 500 mcg tablet 500 mcg PO DAILY Qty: 30 3RF tamsulosin 0.4 mg capsule 0.4 mg PO BEDTIME 30 Days Qty: 90 1RF oxybutynin chloride 10 mg tablet extended release 24 hr 10 mg PO DAILY 30 Days Qty: 90 1RF ferrous sulfate 325 mg (65 mg iron) tablet 1 tab PO QAM furosemide 20 mg tablet 20 mg PO DAILY metoprolol succinate [Toprol XL] 100 mg tablet extended release 24 hr 100 mg PO DAILY Qty: 90 3RF sertraline 50 mg tablet 50 mg PO DAILY omeprazole 40 mg capsule,delayed release(DR/EC) 40 mg PO DAILY montelukast 10 mg tablet 10 mg PO BEDTIME albuterol sulfate 90 mcg/actuation HFA aerosol inhaler 1 inh inhalation QID PRN (Reason: Shortness Of Breath) calcium carbonate-vitamin D3 600 mg-10 mcg (400 unit) capsule 1 cap PO DAILY multivitamin Tablet 1 tab PO DAILY apixaban 5 mg tablet 5 mg PO BID fluticasone propion-salmeterol [Advair Diskus] 250-50 mcg/dose blister with device 1 inh inhalation BID Citrucel 500 mg tablet 500 mg PO TID PRN (Reason: Constipation) Discontinued lisinopril 20 mg tablet 20 mg PO DAILY Qty: 60 3RF Discharge Orders: Discharge Order (Routine); Ordered 03/28/22 Ordered By: Vidal Perez Diet: advance to usual diet Activity on Discharge: As tolerated Stand Alone Forms: Patient Portal Discharge page Care Plan Goals: resume all previous medicines as ordered. Your lisinopril has been decreased to 10 mg daily and Cardizem CD 120 has been added as well Health Concerns: follow-up with PCP and Cardiology as scheduled Plan of Treatment: complete your stress test as outpatient as scheduled Assessment: see discharge summary
--- NOTE | 2022-03-28 12:07 | MHC.CM.PN ---
Addendum entered by Emily Torres 03/28/22 12:30: [facility] CONFIRMED [facility] ARE ABLE TO ACCEPT REFERRAL AND WILL PROVIDE SOC WITHIN 48 HOURS Original Note: PT WILL DC HOME TODAY [facility] ORDERED REFERRAL MADE TO [facility] AWAITING [facility]PONSE FAMILY TO TRANSPORT
== END 2022-03-28 13:13 | disposition home health service (06) | DRG 292 ==
LOC: HO.ED 16:31 → HO.EDOVER 22:37
PROVIDERS: Admitting Provider Hospitalist; Emergency Provider Emergency Medicine; PCP Family Medicine; Visit Provider Hospitalist
DX: I11.0 Hypertensive heart disease with heart failure (principal); I48.92 Unspecified atrial flutter; Z68.43 Body mass index [BMI] 50.0-59.9, adult; I16.1 Hypertensive emergency; K21.9 Gastro-esophageal reflux disease without esophagitis; E66.01 Morbid (severe) obesity due to excess calories; N40.0 Benign prostatic hyperplasia without lower urinary tract symptoms; I50.9 Heart failure, unspecified; F32.A Depression, unspecified; I48.0 Paroxysmal atrial fibrillation; Z86.711 Personal history of pulmonary embolism; E78.5 Hyperlipidemia, unspecified; Z98.84 Bariatric surgery status; Z20.822 Contact with and (suspected) exposure to COVID-19; Z87.891 Personal history of nicotine dependence; Z88.0 Allergy status to penicillin; Z88.1 Allergy status to other antibiotic agents; Z88.2 Allergy status to sulfonamides; Z88.6 Allergy status to analgesic agent; Z88.8 Allergy status to other drugs, medicaments and biological substances; Z79.01 Long term (current) use of anticoagulants; Z79.51 Long term (current) use of inhaled steroids; Z79.899 Other long term (current) drug therapy
CPT/HCPCS: 36415; 71045; 80048; 80053; 80076; 82077; 83735; 83880; 84443; 84484; 85025; 85610; 87635; 93005; 93306; 96365; 96366; 96375; 96376; 99285; J1170; J1940; J2270; Q9957

== ENCOUNTER → 2022-04-02 09:55 | Outpatient (REF) | payer MEDICARE, MEDICAID, SELFPAY ==
--- NOTE | ~2022-04-02 | NM_ITS ---
Myocardial perfusion study Indication: Chest pain to evaluate for myocardial ischemia Technique: The patient was brought in for a Lexiscan perfusion study on 04/02/2022. Patient performed low-level exercise and was injected 0.4 mg of Lexiscan intravenously. Within a minute of injection, 45 mCi of sestamibi was given intravenously. Images were obtained using the SPECT gamma camera interlaced with the gating device. Images were obtained in supine position. Resting perfusion study was performed on 04/03/2022. Patient was administered 45 mCi of sestamibi intravenously at rest. Images were then obtained in supine position. Images obtained with and without CT attenuation. Total DLP 183 mGy-cm. Images were processed with the software and compared side to side in short axis, horizontal long axis and vertical long axis views. Findings: The stress perfusion study showed non attenuated images show mildly reduced uptake in the basal and mid lateral and moderately reduced uptake in the inferolateral as well as inferior wall of the LV myocardium. Remainder of the LV myocardium is normally perfused. Attenuation corrected images show normal uptake of radiotracer in all segments of LV myocardium.. The gated study shows normal LV systolic function with calculated LVEF of 67%. LV cavity is normal in size. The gated study shows normal systolic wall thickening and contraction of segments. Resting study shows non attenuated images show improved uptake in the inferior wall of the LV myocardium. On attenuated corrected images show normal uptake of radiotracer in all segments of LV myocardium. Gating at rest reveals normal systolic wall motion with ejection fraction at 70%. The findings are consistent with discrepancy between non attenuated as well as attenuated corrected images most likely due to attenuation artifact. Likely normal myocardial perfusion. NM/NM cardiolite stress test Impression: 1. Myocardial perfusion imaging study shows normal myocardial perfusion 2. Gated LVEF is 67% 3. Transient ischemic dilatation not present EKG is nondiagnostic for ischemia
--- NOTE | 2022-04-02 09:58 | CA_ITS ---
Acquisition Time: 2022-04-02 10:05:25 Total Exercise Time: 00:02:00 Test Indications: CHEST PAIN, SOB Medications: Protocol: LEXISCAN Max HR: 074 BPM 45% of Pred: 163 BPM Max BP: 126/064 mmHG Max Work Load: 1.0 METS Pharmacological stress test with Lexiscan injection, while sitting and kicking his legs, without anginal symptoms, without arrythmia, with normotensive response to injection, with nondiagnostic EKG for ischemia. Nuclear images pending. Test reviewed with Dr Ch. Referred By: Steven Ch Overread By: VANDANA LOYA
== END ==
LOC: HO.CARD 09:55
PROVIDERS: Visit Provider Internal Medicine Cardiovascular Disease
DX: R07.9 Chest pain, unspecified (principal); R07.2 Precordial pain; I10 Essential (primary) hypertension; I48.0 Paroxysmal atrial fibrillation; E66.01 Morbid (severe) obesity due to excess calories
CPT/HCPCS: 78452; 93017; 99212; A9500; J0280; J2785

== ENCOUNTER → 2022-04-10 10:17 | Outpatient (REF) | payer MEDICARE, MEDICAID, SELFPAY ==
--- NOTE | 2022-04-10 10:19 | HM_ITS ---
Conclusion: 1. Patient was monitored for total period of 2 days and 23 hours 2. Predominant rhythm is normal sinus rhythm with average heart of 63 beats per minute with minimal heart rate 41 beats per minute 3. 30% of the time patient atrial fibrillation with controlled ventricular response, longest episode of 21 hours and 34 minutes 4. Pauses up to 2.82 seconds noted while patient was atrial fibrillation during sleeping hours 5. Rare PACs noted 6. No patient reported events MTDD
== END ==
LOC: HO.CARD 10:17
PROVIDERS: Visit Provider Nurse Practitioner Family
DX: I48.91 Unspecified atrial fibrillation (principal); I48.92 Unspecified atrial flutter
CPT/HCPCS: 93242

== ENCOUNTER 2022-04-21 05:58 | Outpatient (REF) | payer MEDICARE, MEDICAID, SELFPAY ==
--- NOTE | ~2022-04-21 | FL_ITS ---
EXAMINATION: XR FLUOROSCOPY WITH IMAGES CLINICAL INFORMATION: Pain in left knee COMPARISON: 01/30/2022 TECHNIQUE: Fluoroscopy performed by Dr. Jerson Aviles. Fluoroscopy time: Not reported DAP: 6.21 Gycm2 Images: 1 FINDINGS: Single lateral view of the knee demonstrates a linear density overlying the lateral aspect of the proximal left tibia. FL/FL guidance in treatment room IMPRESSION: Fluoroscopic imaging of the left knee for procedural assistance. Please see procedure note for full details.
== END 2022-04-21 05:59 | disposition home or self-care (01) ==
LOC: HO.RADIR 05:58
PROVIDERS: Visit Provider Anesthesiology
DX: M17.12 Unilateral primary osteoarthritis, left knee (principal); G89.29 Other chronic pain
CPT/HCPCS: 64450

== ENCOUNTER → 2022-04-24 09:33 | Outpatient (BNVA) | payer MEDICARE, MEDICAID, SELFPAY | PROVIDERS: PCP Family Medicine; Visit Provider Nurse Practitioner Family | DX: M17.12 Unilateral primary osteoarthritis, left knee (principal); G89.29 Other chronic pain; M25.562 Pain in left knee | CPT/HCPCS: Q3014 ==

== ENCOUNTER → 2022-05-14 12:03 | Outpatient (BNVA) | payer MEDICARE, MEDICAID, SELFPAY | PROVIDERS: PCP Family Medicine; Visit Provider Physician Assistant | DX: M17.12 Unilateral primary osteoarthritis, left knee (principal) | CPT/HCPCS: 99212 ==

== ENCOUNTER 2022-06-09 06:11 | Outpatient (REF) | payer MEDICARE, MEDICAID, SELFPAY ==
--- NOTE | ~2022-06-09 | FL_ITS ---
EXAMINATION: XR FL WITH IMAGES CLINICAL INFORMATION: Left knee pain. COMPARISON: 04/21/2022 TECHNIQUE: Fluoroscopy performed by Dr. Jerson vAiles. Fluoroscopy Time: 0.1 minutes. Cumulative Dose: 1 7 mGy. DAP: 0.512 Gy-cm2. Images: 2. FINDINGS: AP and lateral views of the left knee performed. Needle is seen overlying the region of the medial proximal femur. FL/FL guidance in treatment room IMPRESSION: Fluoroscopy for pain management procedure.
== END 2022-06-09 06:12 | disposition home or self-care (01) ==
LOC: HO.RADIR 06:11
PROVIDERS: Visit Provider Anesthesiology
DX: M17.12 Unilateral primary osteoarthritis, left knee (principal); G89.29 Other chronic pain; M25.562 Pain in left knee
CPT/HCPCS: 64450; J1100; J2795; J3300

== ENCOUNTER → 2022-06-17 10:13 | Outpatient (BNVA) | payer MEDICARE, MEDICAID, SELFPAY | PROVIDERS: PCP Family Medicine; Referring Provider Family Medicine; Visit Provider Internal Medicine Cardiovascular Disease | DX: I48.0 Paroxysmal atrial fibrillation (principal); Z86.718 Personal history of other venous thrombosis and embolism; Z95.828 Presence of other vascular implants and grafts; Z79.01 Long term (current) use of anticoagulants | CPT/HCPCS: 99212 ==

== ENCOUNTER → 2022-06-29 15:06 | Outpatient (BNVA) | payer MEDICARE, MEDICAID, SELFPAY | PROVIDERS: PCP Family Medicine; Visit Provider Anesthesiology | DX: M17.12 Unilateral primary osteoarthritis, left knee (principal); M25.562 Pain in left knee; G89.29 Other chronic pain | CPT/HCPCS: 99212 ==

== ENCOUNTER 2022-08-10 15:13 | Outpatient (REF) | payer MEDICARE, MEDICAID, SELFPAY ==
[2022-08-10 17:09] LABS: C Reactive Protein 0.54 mg/dL (< or = 0.50); Lipase 23 U/L (8-78)
[2022-08-10 17:43] LABS: Erythrocyte Sedimentation Rate 36 MM/HR (0-15)
== END 2022-08-10 15:14 | disposition home or self-care (01) ==
LOC: HO.HMGCLDS 15:13
PROVIDERS: PCP Family Medicine; Visit Provider Physician Assistant
DX: K52.9 Noninfective gastroenteritis and colitis, unspecified (principal); I48.0 Paroxysmal atrial fibrillation; Z79.01 Long term (current) use of anticoagulants
CPT/HCPCS: 36415; 83690; 85652; 86140; 99212

== ENCOUNTER 2022-08-12 12:57 | Outpatient (REF) | payer MEDICARE, MEDICAID, SELFPAY ==
[2022-08-12 15:00] LABS: CDiff Gene PCR NEGATIVE (Negative)
[2022-08-20 21:22] LABS: Calprotectin, Fecal 154 mcg/g
[2022-08-21 18:17] LABS: Pancreatic Elastase-1 378 mcg/g
== END 2022-08-12 12:58 | disposition home or self-care (01) ==
LOC: HO.HMGCLDS 12:57
PROVIDERS: PCP Family Medicine; Visit Provider Physician Assistant
DX: K52.9 Noninfective gastroenteritis and colitis, unspecified (principal)
CPT/HCPCS: 82656; 83993; 87493

== ENCOUNTER → 2022-08-26 13:52 | Outpatient (BNVA) | payer MEDICARE, MEDICAID, SELFPAY | PROVIDERS: PCP Family Medicine; Visit Provider Internal Medicine | DX: E66.01 Morbid (severe) obesity due to excess calories (principal); G47.33 Obstructive sleep apnea (adult) (pediatric); J45.909 Unspecified asthma, uncomplicated; J98.4 Other disorders of lung; Z99.89 Dependence on other enabling machines and devices; Z68.43 Body mass index [BMI] 50.0-59.9, adult | CPT/HCPCS: 94010; 99202 ==

== ENCOUNTER → 2022-09-30 10:45 | Outpatient (BNVA) | payer MEDICARE, MEDICAID, SELFPAY | PROVIDERS: PCP Family Medicine; Referring Provider Family Medicine; Visit Provider Internal Medicine Cardiovascular Disease | DX: I48.0 Paroxysmal atrial fibrillation (principal); Z79.01 Long term (current) use of anticoagulants | CPT/HCPCS: 93005; 99212 ==

== ENCOUNTER 2022-10-29 05:56 | Day surgery (SDC) | payer MEDICARE, MEDICAID, SELFPAY ==
[2022-10-22 10:14] VITALS: BMI 57.2
--- NOTE | 2022-10-26 14:37 | HO.ANESPROP2 ---
Documented by User: Corina Dickey NP 10/28/22 12:05 HPI - Anesthesia Eval Consult details Narrative: 56yo M for Upper Endoscopy and Colonoscopy Cardiac cleared Pulmo cleared Eliquis for afib, also hx DVT *Multiple Allergies* Opioid dependance per PMHx PMFSH Active Problems Active Problems: All Active Problems (Updated 10/22/22 @ 10:07 by Linda Rolle, RN) Osteoarthritis of left knee (Acute) PAF (paroxysmal atrial fibrillation) (Acute) Essential hypertension (Acute) Overactive bladder (Acute) Incomplete emptying of bladder due to benign prostatic hyperplasia (Acute) Morbid obesity (Acute) S/P gastric bypass (Acute) Diarrhea (Acute) Current use of fci anticoagulation (Acute) Chronic pain of left knee (Acute) Chronic diarrhea (Acute) Preop examination (Acute) SHAYLA on CPAP (Acute) Bronchial asthma (Acute) Restrictive lung disease (Acute) Past Medical History Medical History (Updated 10/22/22 @ 10:07 by Linda Rolle, DAVID) Asthma Bronchial asthma Depression Dyspnea Family history of stent GERD (gastroesophageal reflux disease) History of kidney stones Hyperlipidemia Lumbar disc disease Lumbar disc prolapse with root compression Lymphedema Migration of vascular stent Morbid obesity Neurogenic bladder OA (osteoarthritis) On anticoagulant therapy On beta paty at home SHAYLA on CPAP PAF (paroxysmal atrial fibrillation) Pulmonary embolus Restrictive lung disease Uncomplicated opioid dependence Venous stasis Family History Family History Mother Diabetes Father Brain cancer Sister Diabetes Sister Diabetes Sister Diabetes Brother Blind Brother No problems noted. Brother No problems noted. Brother No problems noted. Brother No problems noted. Daughter No problems noted. Daughter Mental health disorder Son Mental health disorder Son No problems noted. Son No problems noted. Surgical History Surgical History History of esophagogastroduodenoscopy (EGD) Hx of colonoscopy Hx of eye surgery Hx of gastric bypass S/P appendectomy S/P IVC filter Social History Social History Household Members Other:: - 5 kids Are you a primary vision care associate to a significant other at home: No Do you presently have visiting nurse or other home services: Yes (Visiting Nurse- monthly) Alcohol intake: former Year quit: 1979 Patient Tobacco Use Status: Former Tobacco user Quit Date: Tobacco use type: Cigarette Years Smoked: 2 Second Hand Smoke Exposure: No Use of substances other than those prescribed or required for medical reasons: No Have you been hit, kicked, punched, or otherwise hurt by someone within the past year? If so, by whom?: No Are you DNR?: No Advance Directives: Yes Advance Directives Information Provided: Yes Advance Directives on File: Yes Advance Directives Date on File: 08/14/21 Recently lost weight without trying: No Eating poorly because of decreased appetite: No Poor oral hygiene: No (no teeth- no dentures) service: No Current occupational status: disabled Current occupation: rt handed Meds Allergies Allergy/AdvReac Type Severity Reaction Status Date / Time cefaclor [From Ceclor] Allergy Severe hives Verified 10/22/22 10:01 epanolol Allergy Severe hives Verified 10/22/22 10:01 misoprostol Allergy Severe rash Verified 10/22/22 10:01 NSAIDS (Non-Steroidal Allergy Severe GI upset Verified 10/22/22 10:01 Anti-Inflamma Penicillins Allergy Severe hives, Verified 10/22/22 10:01 rash, itching Sulfa (Sulfonamide Allergy Severe Hives Verified 10/22/22 10:01 Antibiotics) Cephalosporins Allergy Intermediate hives Verified 10/22/22 10:01 amoxicillin Allergy Mild rash Verified 10/22/22 10:01 vancomycin Allergy Mild itching Verified 10/22/22 10:01 clindamycin AdvReac Intermediate Rash Verified 10/22/22 10:01 Home Medications Medication Instructions Recorded Confirmed Last Taken Type albuterol sulfate 90 mcg/actuation 1 inh inhalation QID PRN Shortness 05/13/21 10/22/22 10/29/22 History aerosol inhaler Of Breath montelukast 10 mg tablet 10 mg PO BEDTIME 05/13/21 10/22/22 10/28/22 History omeprazole 40 mg capsule,delayed 40 mg PO DAILY 05/13/21 10/22/22 10/29/22 History release sertraline 50 mg tablet 50 mg PO DAILY 05/13/21 10/22/22 10/29/22 History furosemide 20 mg tablet 20 mg PO DAILY 08/11/21 10/22/22 10/15/22 History apixaban 5 mg tablet 5 mg PO BID 02/06/22 10/22/22 10/25/22 History calcium carbonate 600 mg-vitamin 1 cap PO DAILY 02/06/22 10/22/22 10/28/22 History D3 10 mcg (400 unit) capsule fluticasone 250 mcg-salmeterol 50 1 inh inhalation BID 02/06/22 10/22/22 10/29/22 History mcg/dose blistr powdr for inhalation (Advair Diskus) methylcellulose (laxative) 500 mg 500 mg PO TID PRN Constipation 03/19/22 10/22/22 10/28/22 History tablet (Citrucel) ferrous sulfate 325 mg (65 mg 1 tab PO QAM 03/26/22 10/22/22 10/25/22 History iron) tablet gabapentin 300 mg capsule 300 mg PO TID 09/30/22 10/22/22 10/29/22 History multivitamin with folic acid 400 1 tab PO DAILY 09/30/22 10/22/22 10/28/22 History mcg tablet (Daily-Brent (with folic acid)) nystatin 100,000 unit/gram topical topical DAILY PRN Rash 09/30/22 09/30/22 10/28/22 History cream Exam Exam Date and Time: October 26, 2022 1437 Height,Weight and Vital Signs: Height 5 ft 9 in Weight 175.994 kg Narrative Narrative: EKG 09/2022 Sinus rhythm 61 beats per minute, otherwise normal EKG, QTC 446 milliseconds. 3 Day Holter 03/2022 Conclusion: 1. Patient was monitored for total period of 2 days and 23 hours 2. Predominant rhythm is normal sinus rhythm with average heart of 63 beats per minute with minimal heart rate 41 beats per minute 3. 30% of the time patient atrial fibrillation with controlled ventricular response, longest episode of 21 hours and 34 minutes 4. Pauses up to 2.82 seconds noted while patient was atrial fibrillation during sleeping hours 5. Rare PACs noted 6. No patient reported events? NM cardiolite stress test 03/2022 Impression: ? 1.? Myocardial perfusion imaging study shows normal myocardial perfusion 2.? Gated LVEF is 67% 3. Transient ischemic dilatation not present ? EKG is nondiagnostic for ischemia ? Assessment and Plan Assessment Anesthesia Assessment: Chart Reviewed Documented by User: Maxi Sousa MD 10/29/22 07:26 [facility] Past Medical History Medical History (Updated 10/22/22 @ 10:07 by Linda Rolle RN) Asthma Bronchial asthma Depression Dyspnea Family history of stent GERD (gastroesophageal reflux disease) History of kidney stones Hyperlipidemia Lumbar disc disease Lumbar disc prolapse with root compression Lymphedema Migration of vascular stent Morbid obesity Neurogenic bladder OA (osteoarthritis) On anticoagulant therapy On beta paty at home SHAYLA on CPAP PAF (paroxysmal atrial fibrillation) Pulmonary embolus Restrictive lung disease Uncomplicated opioid dependence Venous stasis Family History Family History Mother Diabetes Father Brain cancer Sister Diabetes Sister Diabetes Sister Diabetes Brother Blind Brother No problems noted. Brother No problems noted. Brother No problems noted. Brother No problems noted. Daughter No problems noted. Daughter Mental health disorder Son Mental health disorder Son No problems noted. Son No problems noted. Family history of problems with anesthesia: No Surgical History Surgical History History of esophagogastroduodenoscopy (EGD) Hx of colonoscopy Hx of eye surgery Hx of gastric bypass S/P appendectomy S/P IVC filter History of Problems with Anesthesia: No Social History Social History Household Members Other:: - 5 kids Are you a primary vision care associate to a significant other at home: No Do you presently have visiting nurse or other home services: Yes (Visiting Nurse- monthly) Alcohol intake: former Year quit: 1979 Patient Tobacco Use Status: Former Tobacco user Quit Date: Tobacco use type: Cigarette Years Smoked: 2 Second Hand Smoke Exposure: No Use of substances other than those prescribed or required for medical reasons: No Have you been hit, kicked, punched, or otherwise hurt by someone within the past year? If so, by whom?: No Are you DNR?: No Advance Directives: Yes Advance Directives Information Provided: Yes Advance Directives on File: Yes Advance Directives Date on File: 08/14/21 Recently lost weight without trying: No Eating poorly because of decreased appetite: No Poor oral hygiene: No (no teeth- no dentures) service: No Current occupational status: disabled Current occupation: rt handed Meds Allergies Allergy/AdvReac Type Severity Reaction Status Date / Time cefaclor [From Ceclor] Allergy Severe hives Verified 10/22/22 10:01 epanolol Allergy Severe hives Verified 10/22/22 10:01 misoprostol Allergy Severe rash Verified 10/22/22 10:01 NSAIDS (Non-Steroidal Allergy Severe GI upset Verified 10/22/22 10:01 Anti-Inflamma Penicillins Allergy Severe hives, Verified 10/22/22 10:01 rash, itching Sulfa (Sulfonamide Allergy Severe Hives Verified 10/22/22 10:01 Antibiotics) Cephalosporins Allergy Intermediate hives Verified 10/22/22 10:01 amoxicillin Allergy Mild rash Verified 10/22/22 10:01 vancomycin Allergy Mild itching Verified 10/22/22 10:01 clindamycin AdvReac Intermediate Rash Verified 10/22/22 10:01 Home Medications Medication Instructions Recorded Confirmed Last Taken Type albuterol sulfate 90 mcg/actuation 1 inh inhalation QID PRN Shortness 05/13/21 10/22/22 10/29/22 History aerosol inhaler Of Breath montelukast 10 mg tablet 10 mg PO BEDTIME 05/13/21 10/22/22 10/28/22 History omeprazole 40 mg capsule,delayed 40 mg PO DAILY 05/13/21 10/22/22 10/29/22 History release sertraline 50 mg tablet 50 mg PO DAILY 05/13/21 10/22/22 10/29/22 History furosemide 20 mg tablet 20 mg PO DAILY 08/11/21 10/22/22 10/15/22 History apixaban 5 mg tablet 5 mg PO BID 02/06/22 10/22/22 10/25/22 History calcium carbonate 600 mg-vitamin 1 cap PO DAILY 02/06/22 10/22/22 10/28/22 History D3 10 mcg (400 unit) capsule fluticasone 250 mcg-salmeterol 50 1 inh inhalation BID 02/06/22 10/22/22 10/29/22 History mcg/dose blistr powdr for inhalation (Advair Diskus) methylcellulose (laxative) 500 mg 500 mg PO TID PRN Constipation 03/19/22 10/22/22 10/28/22 History tablet (Citrucel) ferrous sulfate 325 mg (65 mg 1 tab PO QAM 03/26/22 10/22/22 10/25/22 History iron) tablet gabapentin 300 mg capsule 300 mg PO TID 09/30/22 10/22/22 10/29/22 History multivitamin with folic acid 400 1 tab PO DAILY 09/30/22 10/22/22 10/28/22 History mcg tablet (Daily-Brent (with folic acid)) nystatin 100,000 unit/gram topical topical DAILY PRN Rash 09/30/22 09/30/22 10/28/22 History cream Exam Airway Mallampati Class: I TM Dist: >3cm Neck ROM: Full Denture: Upper and Lower Loose/Missing/Broken Teeth: Yes, Upper and Lower Heart: ok, SR. Lungs: ok, 94-97% on RA. Assessment and Plan Final Anesthetic Review Family History of Problems with Anesthesia: No History of Problems with Anesthesia: No NPO: Yes ASA Class: III Final Preanesthetic Review: No Changes in Pt Med Stat, Meds/Allgs Chart Reviewed, Consent Obtained/Reviewed and Anes Risks/Benef Reviewed Patient Risk: High Procedure Risk: Intermediate Anesthetic Plan Anesthetic Plan: MAC: and Agree w/ Assess. and Plan Disposition: Standard PACU
[2022-10-29 06:18] VITALS: BP 154/83; PULSE 77; RESP 77; TEMP 36.6; O2SAT 97
[2022-10-29 06:26] VITALS: BMI 58.7
[2022-10-29 06:41] LABS: Amphetamine Screen Urine Not Detected (Not Detect); Barbiturates, Urine Not Detected (Not Detect); Benzodiazepines Screen Urine Not Detected (Not Detect); Cannabinoid Screen Urine Not Detected (Not Detect); Cocaine Screen Urine Not Detected (Not Detect); Fentanyl, urine Not Detected (Not Detect); Opiate Screen Urine Not Detected (Not Detect); Phencyclidine Screen Urine Not Detected (Not Detect)
[2022-10-29] MEDS: Lactated Ringers 1,000 ML 100 ML IVCONT (06:42)
--- NOTE | 2022-10-29 06:46 | MHC.SHP ---
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 Relevant Family History (Specify if Yes): No Relevant Social History: None Present Medications: see Short Stay Collaborative assessment Medical History: Significant History (Asthma Depression Dyspnea Family history of stent GERD (gastroesophageal reflux disease) History of kidney stones Hyperlipidemia Lumbar disc disease Lumbar disc prolapse with root compression Lymphedema Migration of vascular stent Morbid obesity Neurogenic bladder OA (osteoarthritis) Pulmonary embol) History of Previous Operations: Relevant previous surgery/procedure and date(s) (History of esophagogastroduodenoscopy (EGD) Hx of colonoscopy Hx of eye surgery Hx of gastric bypass S/P appendectomy S/P IVC filter) Allergies: Allergies Allergy/AdvReac Type Severity Reaction Status Date / Time cefaclor [From Ceclor] Allergy Severe hives Verified 10/22/22 10:01 epanolol Allergy Severe hives Verified 10/22/22 10:01 misoprostol Allergy Severe rash Verified 10/22/22 10:01 NSAIDS (Non-Steroidal Allergy Severe GI upset Verified 10/22/22 10:01 Anti-Inflamma Penicillins Allergy Severe hives, Verified 10/22/22 10:01 rash, itching Sulfa (Sulfonamide Allergy Severe Hives Verified 10/22/22 10:01 Antibiotics) Cephalosporins Allergy Intermediate hives Verified 10/22/22 10:01 amoxicillin Allergy Mild rash Verified 10/22/22 10:01 vancomycin Allergy Mild itching Verified 10/22/22 10:01 clindamycin AdvReac Intermediate Rash Verified 10/22/22 10:01 Review of Systems Sugical H&P ROS: Negative: Constitution, Cardiovascular, Respiratory, Neurological, Psychiatric, Hem-Onc, Allergic/Immunologic, Gastrointestinal, Genitourinary, Musculoskeletal, Integumentary, Endocrine and Eyes/Ears/Nose/Throat Exam Surgical H&P Exam: Normal: HEENT, Normal: Heart, Normal: Lungs, Normal: Extremities, Normal: Abdomen, Normal: Skin and Normal: Neurological Plan Diagnosis/Plan: Unchanged I have reviewed the history and physical and performed a pertinent physical examination on my patient. No changes have occurred unless specified. Time Spent With Patient Time: Total time managing care of this patient today ____ minutes.
--- NOTE | 2022-10-29 08:38 | P.OP_ITS ---
Operative Note Operative Note Date of Service: 10/29/22 Narrative: Operative Information Procedure Description: EGD, Colonoscopy Indication: diarrhea Anesthesia: MAC FLEXIBLE TRANSORAL UPPER GASTROINTESTINAL ENDOSCOPY AND COLONOSCOPY PROCEDURE NOTE UPPER ENDOSCOPY Consent: Indications for the procedure and potential complications of bleeding, perforation, reaction to medications and missed diagnosis were discussed with the patient and informed consent was obtained. Instrument: Olympus GIF H 190 J mid size upper endoscope Monitoring: Vital signs and clinical assessment, continuous EKG monitoring, Pulse oximetry, Carbon Dioxide monitoring and blood pressure monitoring were done throughout the procedure. Procedure: The patient was placed in the left lateral decubitis position and pre-procedure medications were administered and a bite block was placed. The endoscope was inserted into the mouth and advanced under direct vision to the third part of duodenum. A careful inspection was made as the upper endoscope was withdrawn including a retroflexed examination of the proximal stomach; Findings and interventions are described below. Findings: Larynx:normal Esophagus: GE junction at 40 cm, diaphragm hiatus at 40 cm, normal mucosa, bx taken Stomach pouch: Normal mucosa. Biopsies were obtained. Retroflexon not done due to small pouch jejunum: Normal Intervention: Biopsies as noted above COLONOSCOPY Instrument: Olympus variable stiffness Adult scope 190L Colonoscopy Monitoring: Vital signs and clinical assessment, continuous EKG monitoring, Pulse oximetry, Carbon Dioxide monitoring and blood pressure monitoring were done throughout the procedure. Colon withdrawal time was 10 minutes. Procedure: The patient was placed in the left lateral decubitis position and pre-procedure medications were administered. After a digital rectal examination of the ano-rectum, the video colonoscope was inserted into the rectum and advanced through the colon to the cecum/TI. The colonoscope was slowly withdrawn in a retrograde panoramic fashion and the colon mucosa was carefully examined including a retroflexed view of the rectum. Findings and interventions are described below. Procedure Difficulty: moderate due to redundant colon Findings: Terminal Ileum-not intubated due to debris overlying Cecum:not well seen due to prep Ascending Colon: normal Transverse Colon -normal Descending Colon:normal Sigmoid Colon: normal Rectum: Retroflexion with medium sized internal hemorrhoids, grade I Anorectum - normal Random bx taken from colon Colon preparation: Dahlgren Bowel Preparation Scale Right colon; 1 Transverse colon: 2 Left colon; 1-2 (0 = Unprepared colon segment with mucosa not seen due to solid stool that cannot be cleared. 1 = Portion of mucosa of the colon segment seen, but other areas of the colon segment not well seen due to staining, residual stool and/or opaque liquid. 2 = Minor amount of residual staining, small fragments of stool and/or opaque liquid, but mucosa of colon segment seen well. 3 = Entire mucosa of colon segment seen well with no residual staining, small fragments of stool or opaque liquid) Impression and Post Procedure Diagnosis: Endoscopy Findings: normal Colonoscopy Findings: internal hemorrhoids Plan: Await Pathology results Repeat Colonoscopy in 1 year due to fair prep or earlier if clinically indicated High fiber diet leaflet avoid straining at stool, epsom salts and sitz bath, anusol supps or cream If bx negative then CTe Above findings were reviewed with the patient and relevant handouts were provided if indicated.
[2022-10-29 08:42] VITALS: BP 109/61; PULSE 61; RESP 16; TEMP 36.6; O2SAT 92
[2022-10-29 08:57] VITALS: BP 147/73; PULSE 64; RESP 18; TEMP 36.6; O2SAT 96
[2022-10-29 09:43] LABS: CDiff Gene PCR NEGATIVE (Negative)
[2022-10-29 10:16] LABS: Campylobacter Not Detected (Not Detect.); E. coli EAEC Not Detected (Not Detect.); E. coli EPEC Not Detected (Not Detect.); E. coli ETEC Not Detected (Not Detect.); E. coli STEC Not Detected (Not Detect.); Plesiomonas shigelloides Not Detected (Not Detect.); Salmonella Not Detected (Not Detect.); Vibrio Not Detected (Not Detect.); Vibrio Cholerae Not Detected (Not Detect.); Yersinia enterocolitica Not Detected (Not Detect.)
[2022-10-29 10:17] LABS: Adenovirus F 40/41 Not Detected (Not Detect.); Astrovirus Not Detected (Not Detect.); Cryptosporidium Not Detected (Not Detect.); Cyclospora cayetanensis Not Detected (Not Detect.); Entamoeba histolytica Not Detected (Not Detect.); Giardia lamblia Not Detected (Not Detect.); Norovirus GI/GII Not Detected (Not Detect.); Rotavirus A Not Detected (Not Detect.); Sapovirus Not Detected (Not Detect.); Shigella sp./EIEC Not Detected (Not Detect.)
== END 2022-10-29 09:44 | disposition home or self-care (01) ==
PROVIDERS: Nurse Practitioner; PCP Family Medicine; Visit Provider Internal Medicine Gastroenterology
PROC: (CPT 45378; principal; 2022-10-29 07:30)
DX: R19.7 Diarrhea, unspecified (principal); K64.0 First degree hemorrhoids; K44.9 Diaphragmatic hernia without obstruction or gangrene; K21.9 Gastro-esophageal reflux disease without esophagitis; J45.909 Unspecified asthma, uncomplicated; E78.5 Hyperlipidemia, unspecified; I89.0 Lymphedema, not elsewhere classified; K52.9 Noninfective gastroenteritis and colitis, unspecified; N31.9 Neuromuscular dysfunction of bladder, unspecified; E66.01 Morbid (severe) obesity due to excess calories; Z68.43 Body mass index [BMI] 50.0-59.9, adult; R32 Unspecified urinary incontinence; Z98.84 Bariatric surgery status; Z79.01 Long term (current) use of anticoagulants; Z79.51 Long term (current) use of inhaled steroids; Z79.899 Other long term (current) drug therapy; Z88.0 Allergy status to penicillin; Z88.1 Allergy status to other antibiotic agents; Z88.2 Allergy status to sulfonamides; F11.20 Opioid dependence, uncomplicated; Z87.442 Personal history of urinary calculi
CPT/HCPCS: 45378; 43239; 36415; 80307; 87493; 87507; 88305; 88342; J3010

== ENCOUNTER 2022-11-03 10:16 | Outpatient (REF) | payer MEDICARE, MEDICAID, SELFPAY ==
[2022-11-03 14:15] LABS: C Reactive Protein 0.46 mg/dL (< or = 0.50)
[2022-11-03 14:56] LABS: Folate 15.3 ng/mL (> or = 4.0); Vitamin B12 390 pg/mL (200-900)
[2022-11-06 06:08] LABS: Zinc 62 mcg/dL (60-130)
[2022-11-06 18:09] LABS: Histamine Plasma <1.5 ng/mL (< OR = 1.8)
[2022-11-07 15:09] LABS: Gastrin 31 pg/mL (<=100)
== END 2022-11-03 10:17 | disposition home or self-care (01) ==
LOC: HO.HMGCLDS 10:16
PROVIDERS: Visit Provider Internal Medicine Gastroenterology
DX: R19.7 Diarrhea, unspecified (principal)
CPT/HCPCS: 36415; 82607; 82746; 82941; 82943; 83088; 83520; 84307; 84586; 84630; 86140

== ENCOUNTER 2022-11-11 11:15 | Outpatient (REF) | payer MEDICARE, MEDICAID, SELFPAY ==
[2022-11-11 16:53] LABS: Blood Urea Nitrogen 18 mg/dL (9-16); Estimated Glomerular Filt Rate > 60
== END 2022-11-11 11:16 | disposition home or self-care (01) ==
LOC: HO.HMGCLDS 11:15
PROVIDERS: PCP Family Medicine; Visit Provider Nurse Practitioner
DX: R19.7 Diarrhea, unspecified (principal)
CPT/HCPCS: 36415; 82565; 84520

== ENCOUNTER 2022-11-17 09:50 | Outpatient (REF) | payer MEDICARE, MEDICAID, SELFPAY ==
--- NOTE | ~2022-11-17 | CT_ITS ---
EXAMINATION: CT ENTEROGRAPHY ABDOMEN AND PELVIS WITH CONTRAST CLINICAL INFORMATION: Periumbilical pain COMPARISON: None TECHNIQUE: Study performed with oral Breeza (1500 mL) to distend the abdomen. The patient was injected with 100 mL Omnipaque 350 intravenous contrast which was administered without adverse effect. Coronal and sagittal reformatted images were obtained at the technologist's workstation. This CT examination was performed using dose optimization techniques as appropriate, variously including the following: *Automated exposure control *Adjustment of mA and/or kV according to patient size (this includes techniques or standardized protocols for targeted exams where dose is matched to indication/reason for exam; i.e. extremities or head) *Use of iterative reconstruction technique DLP: 1301 mGy-cm FINDINGS: GASTROINTESTINAL FINDINGS: Stomach: Postsurgical changes of gastric bypass. The gastric pouch is herniated into the chest. No abnormal dilatation. Small intestine: Partially distended with no focal abnormality. No wall thickening. Normal appearance of the terminal ileum. Large intestine: Partially distended and normal in appearance. No perirectal changes demonstrated. The appendix is not seen. Additional findings: No abnormal enhancement of the vasa recta or significant mesenteric or retroperitoneal lymphadenopathy is seen. No abdominal abscess or fistulous tract demonstrated. ABDOMINAL AND PELVIC CT FINDINGS: Liver, gallbladder, biliary tract: Normal. Pancreas: Normal. Spleen: Normal. Adrenal glands and kidneys: Normal adrenal glands. Symmetric nephrograms. No hydronephrosis. Right lower pole 0.3 cm calculus is 20 cm from the posterior axillary line. Ureters and bladder: Decompressed ureters. Partially distended bladder with no focal abnormality. Lymphovascular structures: No lymphadenopathy. Normal caliber aorta. IVC stent in place. This appears patent. Bones: No acute or suspicious osseous abnormality. Degenerative changes throughout the spine. Mild degenerative change at both hips. Lung bases: The lung bases are clear. CT/CT enterography IMPRESSION: 1. No acute findings in the abdomen or pelvis. No inflammatory changes. 2. Postsurgical changes of gastric bypass. The gastric pouch is herniated into the chest. 3. Nonobstructing right lower pole renal calculus.
[2022-11-17] MEDS: iohexoL 350 MG/ML 100 ML INFUS..BTL IV (11:23)
[2022-11-17] MEDS: Sorbitol/Mannit/Xanth Imaging 500 ML LIQUID 1500 ML PO (11:23)
== END 2022-11-17 09:51 | disposition home or self-care (01) ==
LOC: HO.CT 09:50
PROVIDERS: Visit Provider Internal Medicine Gastroenterology
DX: R10.33 Periumbilical pain (principal)
CPT/HCPCS: 74177; Q9967

== ENCOUNTER → 2022-11-23 10:04 | Outpatient (BNVA) | payer MEDICARE, MEDICAID, SELFPAY | PROVIDERS: PCP Family Medicine; Visit Provider Physician Assistant | DX: R19.7 Diarrhea, unspecified (principal); R10.9 Unspecified abdominal pain; R14.0 Abdominal distension (gaseous); E66.9 Obesity, unspecified; Z68.43 Body mass index [BMI] 50.0-59.9, adult | CPT/HCPCS: 99212 ==

== ENCOUNTER 2022-11-26 09:17 | Outpatient (REF) | payer MEDICARE, MEDICAID, SELFPAY ==
[2022-11-26 12:08] LABS: CDiff Gene PCR NEGATIVE (Negative)
== END 2022-11-26 09:18 | disposition home or self-care (01) ==
LOC: HO.HMGCLDS 09:17
PROVIDERS: PCP Family Medicine; Visit Provider Physician Assistant
DX: R19.7 Diarrhea, unspecified (principal)
CPT/HCPCS: 87493

== ENCOUNTER → 2023-03-29 10:14 | Outpatient (BNVA) | payer MEDICARE, MEDICAID, SELFPAY | PROVIDERS: PCP Family Medicine; Referring Provider Family Medicine; Visit Provider Internal Medicine Cardiovascular Disease | DX: I48.92 Unspecified atrial flutter (principal) | CPT/HCPCS: 93005; 99212 ==

== ENCOUNTER → 2023-04-15 07:15 | Day surgery (SDC) | payer MEDICARE, MEDICAID, SELFPAY ==
--- NOTE | 2023-04-14 10:19 | P.CONAN_ITS ---
HPI - Anesthesia Eval Consult details Narrative: 57yo M for Cardioversion Eliquis for afib/hx clot (IVC filter in situ) s/p EGD and [place] 10/2022 with TIVA PMFSH Active Problems Active Problems: All Active Problems (Updated 03/29/23 @ 11:38 by Steven Ch MD) Atrial flutter (Acute) Diarrhea (Acute) Osteoarthritis of left knee (Acute) PAF (paroxysmal atrial fibrillation) (Acute) Essential hypertension (Acute) Overactive bladder (Acute) Incomplete emptying of bladder due to benign prostatic hyperplasia (Acute) Morbid obesity (Acute) S/P gastric bypass (Acute) Diarrhea (Acute) Current use of intermediate manager anticoagulation (Acute) Chronic pain of left knee (Acute) Chronic diarrhea (Acute) Preop examination (Acute) SHAYLA on CPAP (Acute) Bronchial asthma (Acute) Restrictive lung disease (Acute) Past Medical History Medical History Asthma Bronchial asthma Depression Dyspnea Family history of stent GERD (gastroesophageal reflux disease) History of kidney stones Hyperlipidemia Lumbar disc disease Lumbar disc prolapse with root compression Lymphedema Migration of vascular stent Morbid obesity Neurogenic bladder OA (osteoarthritis) On anticoagulant therapy On beta paty at home SHAYLA on CPAP PAF (paroxysmal atrial fibrillation) Pulmonary embolus Restrictive lung disease Uncomplicated opioid dependence Venous stasis Family History Family History Mother Diabetes Father Brain cancer Sister Diabetes Sister Diabetes Sister Diabetes Brother Blind Brother No problems noted. Brother No problems noted. Brother No problems noted. Brother No problems noted. Daughter No problems noted. Daughter Mental health disorder Son Mental health disorder Son No problems noted. Son No problems noted. Family history of problems with anesthesia: No Surgical History Surgical History History of esophagogastroduodenoscopy (EGD) Hx of colonoscopy Hx of eye surgery Hx of gastric bypass S/P appendectomy S/P IVC filter History of Problems with Anesthesia: No Social History Social History (Updated 03/29/23 @ 11:13 by MILDRED Ny) Household Members Other:: - 5 kids Are you a primary behavioral health care coordinator to a significant other at home: No Do you presently have visiting nurse or other home services: Yes (Visiting Nurse- monthly) Alcohol intake: former Year quit: 1979 Patient Tobacco Use Status: Never used Tobacco Second Hand Smoke Exposure: No Advance Directives Date on File: 08/14/21 service: No Current occupational status: disabled Current occupation: rt handed Meds Allergies Allergy/AdvReac Type Severity Reaction Status Date / Time cefaclor [From Ceclor] Allergy Severe hives Verified 03/29/23 11:10 epanolol Allergy Severe hives Verified 03/29/23 11:10 misoprostol Allergy Severe rash Verified 03/29/23 11:10 NSAIDS (Non-Steroidal Allergy Severe GI upset Verified 03/29/23 11:10 Anti-Inflamma Penicillins Allergy Severe hives, Verified 03/29/23 11:10 rash, itching Sulfa (Sulfonamide Allergy Severe Hives Verified 03/29/23 11:10 Antibiotics) Cephalosporins Allergy Intermediate hives Verified 03/29/23 11:10 amoxicillin Allergy Mild rash Verified 03/29/23 11:10 vancomycin Allergy Mild itching Verified 03/29/23 11:10 clindamycin AdvReac Intermediate Rash Verified 03/29/23 11:10 Home Medications Medication Instructions Recorded Confirmed Last Taken Type albuterol sulfate 90 mcg/actuation 1 inh inhalation QID PRN Shortness 05/13/21 04/13/23 10/29/22 History aerosol inhaler Of Breath montelukast 10 mg tablet 10 mg PO BEDTIME 05/13/21 04/13/23 10/28/22 History omeprazole 40 mg capsule,delayed 40 mg PO DAILY 05/13/21 04/13/23 10/29/22 History release sertraline 50 mg tablet 50 mg PO DAILY 05/13/21 04/13/23 10/29/22 History furosemide 20 mg tablet 20 mg PO DAILY 08/11/21 04/13/23 10/15/22 History apixaban 5 mg tablet 5 mg PO BID 02/06/22 04/13/23 10/25/22 History calcium carbonate 600 mg-vitamin 1 cap PO DAILY 02/06/22 04/13/23 10/28/22 History D3 10 mcg (400 unit) capsule fluticasone 250 mcg-salmeterol 50 1 inh inhalation BID 02/06/22 04/13/23 10/29/22 History mcg/dose blistr powdr for inhalation (Advair Diskus) ferrous sulfate 325 mg (65 mg 1 tab PO QAM 03/26/22 04/13/23 10/25/22 History iron) tablet gabapentin 300 mg capsule 300 mg PO TID 09/30/22 04/13/23 10/29/22 History multivitamin with folic acid 400 1 tab PO DAILY 09/30/22 04/13/23 10/28/22 History mcg tablet (Daily-Brent (with folic acid)) nystatin 100,000 unit/gram topical topical DAILY PRN Rash 09/30/22 03/29/23 10/28/22 History cream lisinopril 5 mg tablet 5 mg PO DAILY 03/29/23 04/13/23 Unknown History oxybutynin chloride 10 mg 20 mg PO DAILY 03/29/23 04/13/23 Unknown History tablet,extended release 24 hr Exam Exam Date and Time: April 14, 2023 1019 Narrative Narrative: EKG 03/2023 Atrial flutter with variable block 79 beats per minute, normal axis, QTC 444 milliseconds. ECHO 2021 Conclusions: - The left ventricular systolic function is normal.? The visually estimated ejection fraction is between 60-65%. ? - No obvious valvular pathology seen on this study.? 3 Day Holter 03/2022 Conclusion: 1. Patient was monitored for total period of 2 days and 23 hours 2. Predominant rhythm is normal sinus rhythm with average heart of 63 beats per minute with minimal heart rate 41 beats per minute 3. 30% of the time patient atrial fibrillation with controlled ventricular response, longest episode of 21 hours and 34 minutes 4. Pauses up to 2.82 seconds noted while patient was atrial fibrillation during sleeping hours 5. Rare PACs noted 6. No patient reported events? NM cardiolite stress test 03/2022 Impression: ? 1.? Myocardial perfusion imaging study shows normal myocardial perfusion 2.? Gated LVEF is 67% 3. Transient ischemic dilatation not present ? EKG is nondiagnostic for ischemia ? Assessment and Plan Assessment Anesthesia Assessment: Chart Reviewed Final Anesthetic Review Family History of Problems with Anesthesia: No History of Problems with Anesthesia: No
[2023-04-15 07:26] VITALS: BMI 59.1
--- NOTE | 2023-04-15 07:32 | ECG_ITS ---
Test Reason : cardioversion Blood Pressure : / mmHG Vent. Rate : 062 BPM Atrial Rate : 062 BPM P-R Int : 184 ms QRS Dur : 096 ms QT Int : 440 ms P-R-T Axes : 014 035 034 degrees QTc Int : 446 ms Normal sinus rhythm Normal ECG When compared with ECG of 28-MAR-2022 07:58, No significant change was found Referred By: Steven Ch Electronically Signed By:Steven Ch
--- NOTE | 2023-04-15 07:57 | PC.NURSE ---
patient in SR confirmed with EKG, belongings returned & ride called.
== END ==
PROVIDERS: PCP Family Medicine; Visit Provider Internal Medicine Cardiovascular Disease
DX: I48.92 Unspecified atrial flutter (principal); Z53.8 Procedure and treatment not carried out for other reasons
CPT/HCPCS: 93005

== ENCOUNTER → 2023-04-21 09:43 | Outpatient (REF) | payer MEDICARE, MEDICAID, SELFPAY ==
--- NOTE | 2023-04-21 09:45 | HM_ITS ---
Conclusion: 1. Patient was monitored for total period of 6 days and 23 hours 2. Baseline was atrial fibrillation with average heart of 90 beats per minute with borderline rate control 3. No significant pauses noted 4. Very rare PVCs noted 5. Patient reported total of 21 events correlating with atrial fibrillation. MTDD
== END ==
LOC: HO.CARD 09:43
PROVIDERS: Visit Provider Internal Medicine Cardiovascular Disease
DX: I48.0 Paroxysmal atrial fibrillation (principal)
CPT/HCPCS: 93242

== ENCOUNTER → 2023-04-21 09:45 | Outpatient (BNV) | payer MEDICARE, MEDICAID, SELFPAY | PROVIDERS: Visit Provider Internal Medicine Cardiovascular Disease | DX: I48.0 Paroxysmal atrial fibrillation (principal) | CPT/HCPCS: 93244 ==

== ENCOUNTER 2023-05-03 11:08 | Inpatient (IN) | payer MEDICARE, MEDICAID, SELFPAY ==
--- NOTE | ~2023-05-03 | CT_ITS ---
EXAMINATION: CT HEAD WITHOUT CONTRAST CLINICAL INFORMATION: Syncope. COMPARISON: None available. TECHNIQUE: Contiguous axial imaging was performed from the skull base to vertex without intravenous administration of contrast. This CT examination was performed using dose optimization techniques as appropriate, variously including the following: *Automated exposure control *Adjustment of mA and/or kV according to patient size (this includes techniques or standardized protocols for targeted exams where dose is matched to indication/reason for exam; i.e. extremities or head) *Use of iterative reconstruction technique DLP: 674 mGy-cm FINDINGS: There is no acute intra-axial, extra-axial bleed, masses or midline shift. There is no acute infarction in evolution. There is no edema. The lateral ventricles are symmetrical in size and configuration but mildly prominent. There is diffuse periventricular hypodensity in both cerebral hemispheres without mass effect. Bone windows reveal no calvarial abnormality. There is no scalp soft tissue abnormality. CT/CT head/brain wo IV con IMPRESSION: 1. No acute intracranial process seen. 2. Mild cerebral volume loss with chronic small vessel ischemic changes.
--- NOTE | ~2023-05-03 | XR_ITS ---
EXAMINATION: XR CHEST CLINICAL INFORMATION: SOB. COMPARISON: Chest x-ray 03/26/2022 TECHNIQUE: 2 views of the chest were obtained. FINDINGS: The lungs are well-expanded with no acute pneumonic process seen. Heart size is normal. Pulmonary vascularity is normal. No gross bony abnormality seen. XR/XR chest 2V IMPRESSION: Unremarkable chest exam.
--- NOTE | 2023-05-03 11:16 | ECG_ITS ---
Test Reason : afib Blood Pressure : / mmHG Vent. Rate : 073 BPM Atrial Rate : 073 BPM P-R Int : 174 ms QRS Dur : 090 ms QT Int : 390 ms P-R-T Axes : 048 032 021 degrees QTc Int : 429 ms Sinus rhythm with Premature atrial complexes Possible Left atrial enlargement Cannot rule out Anterior infarct (cited on or before 03-MAY-2023) Abnormal ECG When compared with ECG of 15-APR-2023 07:45, Premature atrial complexes are now Present Referred By: Generic ED Physician Electronically Signed By:Steven Ch
[2023-05-03 11:34] VITALS: BP 156/83; PULSE 69; RESP 20; TEMP 36.4; O2SAT 96; BMI 61.0
--- NOTE | 2023-05-03 11:35 | ED.GENADULT ---
HPI - General Adult General Chief complaint: Arrhythmia/Palpitations Stated complaint: afib Time Seen by Provider: 05/03/23 17:36 Source: patient Mode of arrival: ambulatory History of Present Illness HPI narrative: 57-year-old male with known paroxysmal atrial fibrillation presents with complaints of dizziness last night and then reports passing out this morning without head strike. Patient states that he has had shortness of breath and worsening palpitations and is currently on Eliquis. Related Data Home Medications Medication Instructions Recorded Confirmed albuterol sulfate 90 mcg/actuation 1 inh inhalation QID PRN Shortness 05/13/21 04/13/23 aerosol inhaler Of Breath montelukast 10 mg tablet 10 mg PO BEDTIME 05/13/21 04/13/23 omeprazole 40 mg capsule,delayed 40 mg PO DAILY 05/13/21 04/13/23 release sertraline 50 mg tablet 50 mg PO DAILY 05/13/21 04/13/23 furosemide 20 mg tablet 20 mg PO DAILY 08/11/21 04/13/23 apixaban 5 mg tablet 5 mg PO BID 02/06/22 04/13/23 calcium carbonate 600 mg-vitamin 1 cap PO DAILY 02/06/22 04/13/23 D3 10 mcg (400 unit) capsule fluticasone 250 mcg-salmeterol 50 1 inh inhalation BID 02/06/22 04/13/23 mcg/dose blistr powdr for inhalation (Advair Diskus) ferrous sulfate 325 mg (65 mg 1 tab PO QAM 03/26/22 04/13/23 iron) tablet gabapentin 300 mg capsule 300 mg PO TID 09/30/22 04/13/23 multivitamin with folic acid 400 1 tab PO DAILY 09/30/22 04/13/23 mcg tablet (Daily-Brent (with folic acid)) nystatin 100,000 unit/gram topical topical DAILY PRN Rash 09/30/22 03/29/23 cream lisinopril 5 mg tablet 5 mg PO DAILY 03/29/23 04/13/23 oxybutynin chloride 10 mg 20 mg PO DAILY 03/29/23 04/13/23 tablet,extended release 24 hr Previous Rx's Medication Instructions Recorded cholecalciferol (vitamin D3) 50 50 mcg PO DAILY #30 caps 02/12/22 mcg (2,000 unit) capsule cyanocobalamin (vitamin B-12) 500 500 mcg PO DAILY #30 tabs 02/12/22 mcg tablet tamsulosin 0.4 mg capsule 0.4 mg PO BEDTIME 30 days #90 caps 03/05/22 metoprolol succinate 100 mg 100 mg PO DAILY #90 tabs 05/15/22 tablet,extended release 24 hr (Toprol XL) rifaximin 550 mg tablet 550 mg PO TID 2 weeks #42 tabs 11/03/22 metronidazole 500 mg tablet 500 mg PO TID 14 days #42 tabs 11/04/22 mesalamine 0.375 gram 1.5 g PO DAILY 2 weeks #56 caps 11/30/22 capsule,extended release 24 hr (Apriso) diltiazem HCl 120 mg 120 mg PO DAILY #90 caps 12/08/22 capsule,extended release 24 hr (Cardizem CD) dronedarone 400 mg tablet (Multaq) 400 mg PO BID #60 tabs 12/23/22 budesonide 3 mg 9 mg PO DAILY 30 days #90 ea 01/21/23 capsule,delayed,extended release psyllium husk 3.4 gram/5.4 gram 1 tbsp PO BID #660 grams 02/15/23 oral powder (Metamucil) simethicone 125 mg chewable tablet 125 mg PO QID PRN abdominal 02/15/23 (Gas Relief (simethicone)) distention #90 tabs colesevelam 625 mg tablet 1,250 mg PO BID for diarrhea #360 04/19/23 tabs Allergies Allergy/AdvReac Type Severity Reaction Status Date / Time cefaclor [From [facility]] Allergy Severe hives Verified 05/03/23 11:34 epanolol Allergy Severe hives Verified 05/03/23 11:34 misoprostol Allergy Severe rash Verified 05/03/23 11:34 NSAIDS (Non-Steroidal Allergy Severe GI upset Verified 05/03/23 11:34 Anti-Inflamma Penicillins Allergy Severe hives, Verified 05/03/23 11:34 rash, itching Sulfa (Sulfonamide Allergy Severe Hives Verified 05/03/23 11:34 Antibiotics) Cephalosporins Allergy Intermediate hives Verified 05/03/23 11:34 amoxicillin Allergy Mild rash Verified 05/03/23 11:34 vancomycin Allergy Mild itching Verified 05/03/23 11:34 clindamycin AdvReac Intermediate Rash Verified 05/03/23 11:34 Review of Systems Review of Systems: Pertinent positives and negatives as stated in HPI [facility] Past Medical History Source: nursing notes reviewed Medical History Asthma Bronchial asthma Depression Dyspnea Family history of stent GERD (gastroesophageal reflux disease) History of kidney stones Hyperlipidemia Lumbar disc disease Lumbar disc prolapse with root compression Lymphedema Migration of vascular stent Morbid obesity Neurogenic bladder OA (osteoarthritis) On anticoagulant therapy On beta paty at home SHAYLA on CPAP PAF (paroxysmal atrial fibrillation) Pulmonary embolus Restrictive lung disease Uncomplicated opioid dependence Venous stasis Surgical History History of esophagogastroduodenoscopy (EGD) Hx of colonoscopy Hx of eye surgery Hx of gastric bypass S/P appendectomy S/P IVC filter Family History Family History Mother Diabetes Father Brain cancer Sister Diabetes Sister Diabetes Sister Diabetes Brother Blind Brother No problems noted. Brother No problems noted. Brother No problems noted. Brother No problems noted. Daughter No problems noted. Daughter Mental health disorder Son Mental health disorder Son No problems noted. Son No problems noted. Social History Social History Household Members Other:: - 5 kids Are you a primary career resource specialist to a significant other at home: No Do you presently have visiting nurse or other home services: Yes (Visiting Nurse- monthly) Alcohol intake: unknown Patient Tobacco Use Status: Never used Tobacco Second Hand Smoke Exposure: No Advance Directives: Yes Advance Directives on File: Yes Advance Directives Date on File: 08/14/21 service: No Current occupational status: disabled Current occupation: rt handed Physical Exam ED Vital Signs: Vital Signs - 24 hr 05/03/23 11:34 05/03/23 17:57 Temperature 97.5 F 97.6 F Pulse Rate 69 69 Respiratory Rate 20 14 Blood Pressure 156/83 H 153/90 H Pulse Oximetry 96 98 Oxygen Delivery Method Room Air Room Air BMI result Body Mass Index 61.0 VITAL SIGNS: Reviewed. GENERAL: Elevated BMI, chronically ill, in no acute distress. HEAD: Normocephalic/atraumatic EYES: PERRLA, EOMI EARS: Ext canals without abnormality NOSE: Nares patent bilateral OROPHARYNX: no oral lesions noted, posterior pharynx clear NECK: Supple, no adenopathy LUNGS: Normal breath sounds, no tachypnea. No adventitious sounds or accessory muscle use. SpO2<98> CARDIOVASCULAR: Regular rate and rhythm without noted murmurs, no JVD chronic bilateral lower extremity edema/lymphedema ABDOMEN: Soft, non-tender, non-distended with bowel sounds. MUSCULOSKELETAL: No tenderness, deformities, or effusions noted on gross inspection. EXTREMITIES: No cyanosis, clubbing or edema, bilateral lower extremity lymphedema. SKIN: Inspection of the skin reveals no rashes NEUROLOGIC: Alert and oriented x 4. Strength and sensation to light touch were grossly intact x 4. Course Course Course Narrative: This is an RME: Additional HPI, ROS, PE not included below will be deferred to primary provider. This is a 42-vzck-goc-male with a hx of morbidy obesity s/p gastric bypass, HTN, HLD, PAF on eliquis, blood clots with IVC filter removed last year now has a stent placed, GERD, presenting to the ER with complaints of dizziness, lightheadedness and fall in the bathroom this morning. Patient reports that he was trying to stand up from the toilet when he suddenly felt lightheaded and fell to the ground. He is unsure if he hit his head. He lost consciousness, he is unsure how long he was on the ground for. He has a history of a fib, however reports that his symptoms are usually intermittent but since over the weekend, his symptoms worsened. He endorses shortness of breath and palpitations. No chest pain. Sees cardiology here and was scheduled to have cardioversion last month but was in NSR for the procedure. No headaches. No neurologic deficits on exam. No hemotympanum, PERLL, EOMI. NO midline spine tenderness Plan: Given he is on anticoagulants will obtain CT head, basic labs, EKG Medical Decision Making Medical Decision Making MDM Narrative: 57-year-old male with history and clinical presentation, DDX: Arrhythmia, infection, anemia, electrolyte abnormality. CT of the head is negative for intracranial abnormalities, chest x-ray no pneumonia and otherwise my interpretation is in agreement with radiology's impression. I reviewed all investigations and there is no findings to suggest infection as there is no leukocytosis or left shift, no thrombocytopenia and normocytic anemia peers to be chronically stable. Chemistry indices are grossly within normal limits and no evidence of electrolyte abnormalities. EKG demonstrates normal sinus rhythm. Therefore, it is my interpretation that patient likely had syncopal episode and dizziness associated with arrhythmia of though there is no indication on current EKG. I did review Dr. Ch office note from March which does states that they plan is for sotalol loading and I discussed the case with him and he recommends admission, repeat EKG in the morning and will evaluate for sotalol load in the a.m. I discussed case with inpatient hospitalist who accepts admission. Differential Diagnosis Differential Diagnoses: The differential diagnosis associated with the presentation includes Please see the discussion above Admission/Observation Consideration of admission/observation: Escalation of care including admission/observation considered Please see the discussion above Consult Healthcare Provider Management of the patient was discussed with: Hospitalist Please see the discussion above Lab Data MDM Lab Attestation statement: I reviewed the patient's lab results. Please see the discussion above 05/03/23 12:01 05/03/23 12:01 Labs: Lab Results 05/03/23 05/03/23 05/03/23 Range/Units 12:01 12:01 12:01 WBC 7.4 (4.8-10.8) X10*3/uL RBC 4.15 L (4.60-5.80) X10*6/uL Hgb 13.1 L (14.0-18.0) g/dl Hct 40.6 L (42.0-52.0) % MCV 97.8 (80.0-98.0) fL MCH 31.6 (27.0-33.0) pg MCHC 32.3 (31.0-36.0) g/dl RDW 13.3 (11.0-16.0) % Plt Count 296 D (160-400) X10*3/uL MPV 9.5 (9.4-12.4) fL Immature Gran % (Auto) 0.7 H (0.0-0.4) % Neut % (Auto) 71.6 (45-73) % Lymph % (Auto) 17.4 L (20-40) % Riple[place] % (Auto) 8.3 (2-11) % Eos % (Auto) 1.2 (0-4) % Baso % (Auto) 0.8 (0-2) % Lymph # (Auto) 1.3 (1.2-4.9) X10*3/uL [place] # (Auto) 0.6 (0.1-1.2) X10*3/uL Eos # (Auto) 0.1 (0.0-0.4) X10*3/uL Baso # (Auto) 0.1 (0.0-0.2) X10*3/uL Abs Immat Gran (auto) 0.05 H (0.00-0.03) X10*3/uL Absolute Neuts (auto) 5.3 (2.0-8.3) x10*3/uL Absolute Nucleated RBC 0.000 (0.0-0.012) X10*3/uL Nucleated RBC % (auto) 0.0 (0.0-0.2) /100WBC PT 13.1 (10.0-13.1) SEC INR 1.1 (0.9-1.1) APTT 33.6 (26.0-36.4) SEC Sodium 139 (135-145) mmol/L Potassium 4.2 (3.3-5.1) mmol/L Chloride 108 (96-108) mmol/L Carbon Dioxide 23 (22-29) mmol/L Anion Gap 12 (12-20) BUN 19 H (9-16) mg/dL Creatinine 0.83 (0.5-1.4) mg/dL Estim Creat Clear Calc 161.0 Estimated GFR > 60 Random Glucose 111 (60-115) mg/dL Calcium 8.5 (8.4-10.2) mg/dL Total Bilirubin 0.4 (0.0-1.0) mg/dL Direct Bilirubin 0.2 (0.0-0.5) mg/dL AST 15 (5-37) U/L ALT 11 (0-40) U/L Alkaline Phosphatase 70 (39-117) U/L Total Creatine Kinase 49 (38-174) U/L Troponin I High Sens (<3.5-35.0) ng/L Total Protein 6.7 (6.5-8.0) g/dL Albumin 3.5 (3.5-5.0) g/dL 05/03/23 Range/Units 12:01 WBC (4.8-10.8) X10*3/uL RBC (4.60-5.80) X10*6/uL Hgb (14.0-18.0) g/dl Hct (42.0-52.0) % MCV (80.0-98.0) fL MCH (27.0-33.0) pg MCHC (31.0-36.0) g/dl RDW (11.0-16.0) % Plt Count (160-400) X10*3/uL MPV (9.4-12.4) fL Immature Gran % (Auto) (0.0-0.4) % Neut % (Auto) (45-73) % Lymph % (Auto) (20-40) % Ripley % (Auto) (2-11) % Eos % (Auto) (0-4) % Baso % (Auto) (0-2) % Lymph # (Auto) (1.2-4.9) X10*3/uL Ripley # (Auto) (0.1-1.2) X10*3/uL Eos # (Auto) (0.0-0.4) X10*3/uL Baso # (Auto) (0.0-0.2) X10*3/uL Abs Immat Gran (auto) (0.00-0.03) X10*3/uL Absolute Neuts (auto) (2.0-8.3) x10*3/uL Absolute Nucleated RBC (0.0-0.012) X10*3/uL Nucleated RBC % (auto) (0.0-0.2) /100WBC PT (10.0-13.1) SEC INR (0.9-1.1) APTT (26.0-36.4) SEC Sodium (135-145) mmol/L Potassium (3.3-5.1) mmol/L Chloride (96-108) mmol/L Carbon Dioxide (22-29) mmol/L Anion Gap (12-20) BUN (9-16) mg/dL Creatinine (0.5-1.4) mg/dL Estim Creat Clear Calc Estimated GFR Random Glucose (60-115) mg/dL Calcium (8.4-10.2) mg/dL Total Bilirubin (0.0-1.0) mg/dL Direct Bilirubin (0.0-0.5) mg/dL AST (5-37) U/L ALT (0-40) U/L Alkaline Phosphatase (39-117) U/L Total Creatine Kinase (38-174) U/L Troponin I High Sens 3.1 (<3.5-35.0) ng/L Total Protein (6.5-8.0) g/dL Albumin (3.5-5.0) g/dL Independent Interpretation I performed an independent interpretation of an: EKG Interpretation: Sinus rhythm with PACs, HR-73, no STEMI, SD/QRS/QTC are within normal limits. Radiology Impression Radiologist Impression: No pneumonia, no intracranial hemorrhage, otherwise my interpretation is in agreement with radiology's impression. External Record Review External record reviewed: Office record, Outpatient record and Prior outpatient labs Chronic Conditions Patient?s care impacted by: Hypertension Critical Care Time Critical Care Time Critical Care Time: Yes Total Critical Care Time: 30 Attestation: I personally attest to this time spent taking care of the patient. Discharge Plan Discharge Clinical Impression: Syncope, Paroxysmal A-fib Patient Disposition: Admitted As Inpatient Prescriptions: No Action cholecalciferol (vitamin D3) 50 mcg (2,000 unit) capsule 50 mcg PO DAILY Qty: 30 3RF cyanocobalamin (vitamin B-12) 500 mcg tablet 500 mcg PO DAILY Qty: 30 3RF tamsulosin 0.4 mg capsule 0.4 mg PO BEDTIME 30 Days Qty: 90 1RF metoprolol succinate [Toprol XL] 100 mg tablet extended release 24 hr 100 mg PO DAILY Qty: 90 3RF rifaximin 550 mg tablet 550 mg PO TID 14 Days Qty: 42 0RF metronidazole 500 mg tablet 500 mg PO TID 14 Days Qty: 42 0RF mesalamine [Apriso] 0.375 gram capsule,extended release 24hr 1.5 g PO DAILY 14 Days Qty: 56 0RF diltiazem HCl [Cardizem CD] 120 mg capsule,extended release 24hr 120 mg PO DAILY Qty: 90 2RF Protocol: Hold for SBP/HR < HOLD for SBP < : 90 HOLD for HR < : 60 Multaq 400 mg tablet 400 mg PO BID Qty: 60 3RF Rx Instructions: must administer with a meal/food budesonide 3 mg capsule,delayed,extend.release 9 mg PO DAILY 30 Days Qty: 90 2RF simethicone [Gas Relief (simethicone)] 125 mg tablet,chewable 125 mg PO QID PRN (Reason: abdominal distention) Qty: 90 2RF Metamucil 3.4 gram/5.4 gram powder 1 tbsp PO BID Qty: 660 2RF Rx Instructions: mix into at least 8 oz of water or juice before administering colesevelam 625 mg tablet 1,250 mg PO BID Qty: 360 0RF ferrous sulfate 325 mg (65 mg iron) tablet 1 tab PO QAM furosemide 20 mg tablet 20 mg PO DAILY sertraline 50 mg tablet 50 mg PO DAILY omeprazole 40 mg capsule,delayed release(DR/EC) 40 mg PO DAILY montelukast 10 mg tablet 10 mg PO BEDTIME albuterol sulfate 90 mcg/actuation HFA aerosol inhaler 1 inh inhalation QID PRN (Reason: Shortness Of Breath) calcium carbonate-vitamin D3 600 mg-10 mcg (400 unit) capsule 1 cap PO DAILY apixaban 5 mg tablet 5 mg PO BID fluticasone propion-salmeterol [Advair Diskus] 250-50 mcg/dose blister with device 1 inh inhalation BID lisinopril 5 mg tablet 5 mg PO DAILY oxybutynin chloride 10 mg tablet extended release 24hr 20 mg PO DAILY multivitamin with folic acid [Daily-Brent (with folic acid)] 400 mcg tablet 1 tab PO DAILY gabapentin 300 mg capsule 300 mg PO TID nystatin 100,000 unit/gram cream topical DAILY PRN (Reason: Rash)
[2023-05-03 12:12] LABS: MANUAL DIFF FLAG NO
[2023-05-03 12:16] LABS: Basophils Absolute Auto 0.1 X10*3/uL (0.0-0.2); Basophils Percent Auto 0.8 % (0-2); Eosinophils Absolute Auto 0.1 X10*3/uL (0.0-0.4); Eosinophils Percent Auto 1.2 % (0-4); Hematocrit 40.6 % (42.0-52.0); Hemoglobin 13.1 g/dl (14.0-18.0); Imm Gran Abs Auto 0.05 X10*3/uL (0.00-0.03); Imm Gran Pct Auto 0.7 % (0.0-0.4); Lymphocytes Absolute Auto 1.3 X10*3/uL (1.2-4.9); Lymphocytes Percent Auto 17.4 % (20-40); Mean Corpuscular HGB Conc 32.3 g/dl (31.0-36.0); Mean Corpuscular Hemoglobin 31.6 pg (27.0-33.0); Mean Corpuscular Volume 97.8 fL (80.0-98.0); Mean Platelet Volume 9.5 fL (9.4-12.4); Monocytes Absolute Auto 0.6 X10*3/uL (0.1-1.2); Monocytes Percent Auto 8.3 % (2-11); Neutrophils Absolute Auto 5.3 x10*3/uL (2.0-8.3); Neutrophils Percent Auto 71.6 % (45-73); Platelet Count 296 X10*3/uL (160-400); Red Blood Count 4.15 X10*6/uL (4.60-5.80); Red Cell Distribution Width 13.3 % (11.0-16.0); White Blood Count 7.4 X10*3/uL (4.8-10.8)
[2023-05-03 12:20] LABS: INTERNATIONAL NORM RATIO 1.1 (0.9-1.1); Prothrombin Time 13.1 SEC (10.0-13.1)
[2023-05-03 12:23] LABS: Partial Thromboplastin Time 33.6 SEC (26.0-36.4)
[2023-05-03 12:30] LABS: Alanine Aminotransferase 11 U/L (0-40); Albumin Level 3.5 g/dL (3.5-5.0); Alkaline Phosphatase 70 U/L (39-117); Anion Gap 12 (12-20); Aspartate Amino Transferase 15 U/L (5-37); Bilirubin Direct 0.2 mg/dL (0.0-0.5); Bilirubin Total 0.4 mg/dL (0.0-1.0); Blood Urea Nitrogen 19 mg/dL (9-16); Calcium 8.5 mg/dL (8.4-10.2); Carbon Dioxide 23 mmol/L (22-29); Chloride 108 mmol/L (96-108); Estimated Glomerular Filt Rate > 60; Glucose Random 111 mg/dL (60-115); Potassium 4.2 mmol/L (3.3-5.1); Sodium 139 mmol/L (135-145); Total Protein 6.7 g/dL (6.5-8.0)
[2023-05-03 12:34] LABS: Troponin-I High Sensitivity 3.1 ng/L (<3.5-35.0)
[2023-05-03 17:57] VITALS: BP 153/90; PULSE 69; RESP 14; TEMP 36.4; O2SAT 98
--- NOTE | 2023-05-03 18:05 | PC.NURSE ---
PT STATES HE CONTINUES TO HAVE CHEST PAIN FROM HIS AFIB. HE IS CURRENTLY IN A SINUS RHYTHM ON THE MONITOR. AWAITING MD ASSESSMENT HE STATES HE WAS ON A HALTER MONITOR RECENTLY AND WAS FOUND TO BE IN AFIB FREQUENLTY, HE IS FOLLOWED BY DR LEYVA.
--- NOTE | 2023-05-03 19:07 | PM.IMHP ---
History of Present Illness Date of Service: 05/03/23 Chief Complaint: Syncope This is a 57-year-old male with pertinent history of atrial fibrillation on anticoagulation, SHAYLA on CPAP, essential hypertension, mood disorder, asthma, BPH who presents to the emergency department for evaluation of syncope and palpitations. Patient states he was recently on a Holter monitor found to be in AFib. His permit agent, Dr. Ch discussed admitting him and trying sotalol load. Patient states that disc was discussed 3 days prior to presentation. He presents today as he had 2 episodes of syncope over the last 2 days. Both episodes were when he was trying to get up, he got dizzy, lightheaded and passed out. Patient also reports palpitations prior to presentation. He denies fever, chills, chest discomfort, shortness of breath, abdominal pain, changes in urinary or bowel habits. States that he is compliant with his medications. In the emergency department, cardiology was consulted who requested admission for possible sotalol load. Review of Systems Constitutional: Constitutional: Reports no additional constitutional complaints Cardiovascular: Cardiovascular: Reports syncope and Reports rapid heart rate Respiratory: Respiratory: Reports no additional respiratory complaints Gastrointestinal: Gastrointestinal: Reports no additional gastrointestinal complaints Genitourinary: Genitourinary: Reports no additional male genitourinary complaints Neurologic: Reports syncope [facility] Medical History Asthma Bronchial asthma Depression Dyspnea Family history of stent GERD (gastroesophageal reflux disease) History of kidney stones Hyperlipidemia Lumbar disc disease Lumbar disc prolapse with root compression Lymphedema Migration of vascular stent Morbid obesity Neurogenic bladder OA (osteoarthritis) On anticoagulant therapy On beta paty at home SHAYLA on CPAP PAF (paroxysmal atrial fibrillation) Pulmonary embolus Restrictive lung disease Uncomplicated opioid dependence Venous stasis Family History Mother Diabetes Father Brain cancer Sister Diabetes Sister Diabetes Sister Diabetes Brother Blind Brother No problems noted. Brother No problems noted. Brother No problems noted. Brother No problems noted. Daughter No problems noted. Daughter Mental health disorder Son Mental health disorder Son No problems noted. Son No problems noted. Surgical History History of esophagogastroduodenoscopy (EGD) Hx of colonoscopy Hx of eye surgery Hx of gastric bypass S/P appendectomy S/P IVC filter Social History Household Members Other:: - 5 kids Are you a primary care program resident to a significant other at home: No Do you presently have visiting nurse or other home services: Yes (Visiting Nurse- monthly) Alcohol intake: unknown Patient Tobacco Use Status: Never used Tobacco Second Hand Smoke Exposure: No Advance Directives: Yes Advance Directives on File: Yes Advance Directives Date on File: 08/14/21 service: No Current occupational status: disabled Current occupation: rt handed Meds Allergies Allergy/AdvReac Type Severity Reaction Status Date / Time cefaclor [From Ceclor] Allergy Severe hives Verified 05/03/23 11:34 epanolol Allergy Severe hives Verified 05/03/23 11:34 misoprostol Allergy Severe rash Verified 05/03/23 11:34 NSAIDS (Non-Steroidal Allergy Severe GI upset Verified 05/03/23 11:34 Anti-Inflamma Penicillins Allergy Severe hives, Verified 05/03/23 11:34 rash, itching Sulfa (Sulfonamide Allergy Severe Hives Verified 05/03/23 11:34 Antibiotics) Cephalosporins Allergy Intermediate hives Verified 05/03/23 11:34 amoxicillin Allergy Mild rash Verified 05/03/23 11:34 vancomycin Allergy Mild itching Verified 05/03/23 11:34 clindamycin AdvReac Intermediate Rash Verified 05/03/23 11:34 Active Medications: Current Medications Pharmacy Consult (Consult Rx Perform Med Rec) 1 each MISCELLANE ONCE PRN PRN Reason: Consult order Home Medications Medication Instructions Recorded Confirmed Last Taken Type albuterol sulfate 90 mcg/actuation 1 inh inhalation QID PRN Shortness 05/13/21 04/13/23 10/29/22 History aerosol inhaler Of Breath montelukast 10 mg tablet 10 mg PO BEDTIME 05/13/21 04/13/23 10/28/22 History omeprazole 40 mg capsule,delayed 40 mg PO DAILY 05/13/21 04/13/23 04/15/23 History release sertraline 50 mg tablet 50 mg PO DAILY 05/13/21 04/13/23 04/15/23 History furosemide 20 mg tablet 20 mg PO DAILY 08/11/21 04/13/23 04/15/23 History apixaban 5 mg tablet 5 mg PO BID 02/06/22 04/13/23 04/15/23 History calcium carbonate 600 mg-vitamin 1 cap PO DAILY 02/06/22 04/13/23 04/15/23 History D3 10 mcg (400 unit) capsule fluticasone 250 mcg-salmeterol 50 1 inh inhalation BID 02/06/22 04/13/23 10/29/22 History mcg/dose blistr powdr for inhalation (Advair Diskus) ferrous sulfate 325 mg (65 mg 1 tab PO QAM 03/26/22 04/13/23 10/25/22 History iron) tablet gabapentin 300 mg capsule 300 mg PO TID 09/30/22 04/13/23 04/15/23 History multivitamin with folic acid 400 1 tab PO DAILY 09/30/22 04/13/23 04/15/23 History mcg tablet (Daily-Brent (with folic acid)) nystatin 100,000 unit/gram topical topical DAILY PRN Rash 09/30/22 03/29/23 10/28/22 History cream lisinopril 5 mg tablet 5 mg PO DAILY 03/29/23 04/13/23 04/15/23 History oxybutynin chloride 10 mg 20 mg PO DAILY 03/29/23 04/13/23 04/15/23 History tablet,extended release 24 hr Physical Exam Vital Signs and Narrative: Vital Signs: Last Vital Signs Temp 97.6 F 05/03/23 17:57 Pulse 69 05/03/23 17:57 Resp 14 05/03/23 17:57 BP 153/90 H 05/03/23 17:57 Pulse Ox 98 05/03/23 17:57 O2 Del Method Room Air 05/03/23 17:57 BMI result Body Mass Index 61.0 Middle-aged male lying in bed in no distress Neck supple Regular rate and rhythm, S1-S2 heard Regular breath sounds bilaterally, no wheezing or crackles appreciated Abdomen soft nontender, no guarding, no rigidity Patient is awake, alert and oriented to self, place, time and person ; no focal motor deficit Psych: Normal mood Bilateral lower extremity swelling with venous stasis changes Results Labs 05/03/23 12:01 05/03/23 12:01 Labs: Laboratory Results - last 24 hr 05/03/23 05/03/23 05/03/23 12:01 12:01 12:01 MCV 97.8 MCH 31.6 MCHC 32.3 RDW 13.3 Plt Count 296 D MPV 9.5 Immature Gran % (Auto) 0.7 H Neut % (Auto) 71.6 Lymph % (Auto) 17.4 L [place] % (Auto) 8.3 Eos % (Auto) 1.2 Baso % (Auto) 0.8 Lymph # (Auto) 1.3 [place] # (Auto) 0.6 Eos # (Auto) 0.1 Baso # (Auto) 0.1 Abs Immat Gran (auto) 0.05 H Absolute Neuts (auto) 5.3 Absolute Nucleated RBC 0.000 Nucleated RBC % (auto) 0.0 PT 13.1 INR 1.1 APTT 33.6 Anion Gap 12 Estim Creat Clear Calc 161.0 Estimated GFR > 60 Random Glucose 111 Calcium 8.5 Total Bilirubin 0.4 Direct Bilirubin 0.2 AST 15 ALT 11 Alkaline Phosphatase 70 Total Creatine Kinase 49 Troponin I High Sens Total Protein 6.7 Albumin 3.5 05/03/23 12:01 MCV MCH MCHC RDW Plt Count MPV Immature Gran % (Auto) Neut % (Auto) Lymph % (Auto) [place] % (Auto) Eos % (Auto) Baso % (Auto) Lymph # (Auto) [place] # (Auto) Eos # (Auto) Baso # (Auto) Abs Immat Gran (auto) Absolute Neuts (auto) Absolute Nucleated RBC Nucleated RBC % (auto) PT INR APTT Anion Gap Estim Creat Clear Calc Estimated GFR Random Glucose Calcium Total Bilirubin Direct Bilirubin AST ALT Alkaline Phosphatase Total Creatine Kinase Troponin I High Sens 3.1 Total Protein Albumin Imaging Radiologist's Impressions: Impressions Chest X-Ray 05/03/23 12:18 IMPRESSION: Unremarkable chest exam. Head CT 05/03/23 14:17 IMPRESSION: 1. No acute intracranial process seen. 2. Mild cerebral volume loss with chronic small vessel ischemic changes. Assessment and Plan (1) Syncope: Status: Acute (2) Paroxysmal A-fib: Status: Acute Plan This is a 57-year-old male with pertinent history of atrial fibrillation on anticoagulation, SHAYLA on CPAP, essential hypertension, mood disorder, asthma, BPH who presents to the emergency department for evaluation of syncope and palpitations. #. Syncope. Orthostatic versus cardiogenic due to AFib. Will admit patient with environmental monitoring specialist. Will obtain orthostatic vital signs. Cardiology was consulted from the ER, patient to be evaluated for possible sotalol load in a.m.. #. Paroxysmal atrial fibrillation on anticoagulation. Hold Multaq as per Cardiology. Rate controlled at the time of admission #. SHAYLA. Continue CPAP at bedtime #. Morbid obesity. Patient counseled regarding diet and exercise #. Essential hypertension. Continue home antihypertensives #. Mood disorder. Continue home mood stabilizers #. Mild intermittent asthma. Continue home inhaler #. BPH: On Flomax Med rec pending DVT prophylaxis: On Eliquis Full code Cardiac diet Time Spent With Patient Time: Total time managing care of this patient today ____ minutes. Quality Stroke Does the patient have a stroke diagnosis?: No VTE Prior VTE?: No VTE Risk Level:: Medical - moderate - high VTE Device Contraindication: Treatment Not Indicated VTE Drug Contraindication: N/A - Med Ordered
--- NOTE | 2023-05-03 21:36 | PHA.MEDREC ---
Pharmacy Consult ? Medication Reconciliation Pharmacy has completed the medication reconciliation.Spoke with patient in the ED. Patient was able to confirm all meds. Patient takes oxybutynin 20 mg/day ( 15 mg plus 5 mg tablet)
--- NOTE | 2023-05-04 00:13 | MHC.EDTECH ---
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 EKG was done NOT DOCUMENTED PRIOR TO MY ARRIVAL
[2023-05-04 00:16] VITALS: RESP 18
--- NOTE | 2023-05-04 00:20 | PC.NURSE ---
resp therapy applied pt c-pap machine
--- NOTE | 2023-05-04 04:46 | MHC.EDTECH ---
Patient belonging list wasn't completed at the time of admission, or before this tech took over the Assignment @0300. Looking at patient's Belongings he has... - Clothing ( Shirt, Pants, Underwear, slide on shoes) - Phone ( with his Group Care Worker) - Glasses @0700 Tech Will go over Patient's belongings with him and do an Official Belonging List.
[2023-05-04 04:54] VITALS: BP 147/78; PULSE 56; RESP 20; TEMP 36.6; O2SAT 100
--- NOTE | 2023-05-04 06:28 | PC.NURSE ---
pt slept during the shift, waiting for bed on a medical floor
--- NOTE | 2023-05-04 07:00 | ECG_ITS ---
Test Reason : REPEAT EKG Blood Pressure : / mmHG Vent. Rate : 064 BPM Atrial Rate : 064 BPM P-R Int : 184 ms QRS Dur : 098 ms QT Int : 440 ms P-R-T Axes : 054 043 034 degrees QTc Int : 453 ms Normal sinus rhythm Possible Left atrial enlargement Borderline ECG When compared with ECG of 03-MAY-2023 11:12, Premature atrial complexes are no longer Present Referred By: Donald Solano Electronically Signed By:Steven Ch
--- NOTE | 2023-05-04 07:11 | PC.NURSE ---
EKG requested by Dr hogde sent via [employer] however he is on do not disturb
[2023-05-04 07:35] LABS: MANUAL DIFF FLAG NO
[2023-05-04 07:41] LABS: Basophils Absolute Auto 0.1 X10*3/uL (0.0-0.2); Basophils Percent Auto 0.9 % (0-2); Eosinophils Absolute Auto 0.2 X10*3/uL (0.0-0.4); Eosinophils Percent Auto 2.9 % (0-4); Hematocrit 41.6 % (42.0-52.0); Hemoglobin 13.2 g/dl (14.0-18.0); Imm Gran Abs Auto 0.04 X10*3/uL (0.00-0.03); Imm Gran Pct Auto 0.7 % (0.0-0.4); Lymphocytes Percent Auto 19.1 % (20-40); Mean Corpuscular HGB Conc 31.7 g/dl (31.0-36.0); Mean Corpuscular Hemoglobin 31.7 pg (27.0-33.0); Mean Corpuscular Volume 99.8 fL (80.0-98.0); Mean Platelet Volume 9.9 fL (9.4-12.4); Monocytes Absolute Auto 0.5 X10*3/uL (0.1-1.2); Monocytes Percent Auto 9.4 % (2-11); Neutrophils Absolute Auto 3.6 x10*3/uL (2.0-8.3); Platelet Count 269 X10*3/uL (160-400); Red Blood Count 4.17 X10*6/uL (4.60-5.80); Red Cell Distribution Width 13.4 % (11.0-16.0); White Blood Count 5.4 X10*3/uL (4.8-10.8)
[2023-05-04 08:12] LABS: Anion Gap 11 (12-20); Blood Urea Nitrogen 15 mg/dL (9-16); Calcium 8.7 mg/dL (8.4-10.2); Carbon Dioxide 27 mmol/L (22-29); Chloride 107 mmol/L (96-108); Creatinine Clr Calc Pharmacy 171.3; Estimated Glomerular Filt Rate > 60; Glucose Random 92 mg/dL (60-115); Potassium 3.9 mmol/L (3.3-5.1); Sodium 141 mmol/L (135-145)
[2023-05-04 08:57] VITALS: BP 147/75; PULSE 61; RESP 19; TEMP 36.9; O2SAT 97
--- NOTE | 2023-05-04 09:44 | HE.PHANOTE ---
patient confirmed his last dose of multaq was 05/03 in am, discussed with set designer who said to wait until dionicio morning to start sotalol
[2023-05-04] MEDS: oxyBUTYnin chloride ER 5 MG TAB.ER.24 20 MG PO (09:46)
[2023-05-04] MEDS: dilTIAZem HCL CD 120 MG CAP.ER.DEG PO (09:47)
[2023-05-04] MEDS: Gabapentin 300 MG CAPSULE PO ×3 (09:47→21:20)
[2023-05-04] MEDS: Multivitamin TABLET 1 TAB PO (09:47)
[2023-05-04] MEDS: Omeprazole 40 MG CAPSULE.DR PO (09:47)
[2023-05-04] MEDS: lisinopriL 5 MG TABLET PO (09:47)
[2023-05-04] MEDS: Sertraline HCL 50 MG TABLET PO (09:47)
[2023-05-04] MEDS: Potassium Chloride ER 20 MEQ TAB.ER.PRT PO (09:48)
[2023-05-04] MEDS: Apixaban 5 MG TABLET PO ×2 (09:48→21:20)
[2023-05-04] MEDS: Magnesium Sulfate/D5W 1 GM/100 ML PIGGYBACK IV (09:48)
[2023-05-04] MEDS: 0.9 % Sodium Chloride Flush 3 ML SYRINGE IVFLUSH ×2 (09:49→21:20)
--- NOTE | 2023-05-04 10:41 | MHC.CM.PN ---
Attempted to meet with patient in regards to discharge planning. Patient currently sleeping. No family present. Will attempt to meet again. Continue to monitor for d/c needs.
--- NOTE | 2023-05-04 11:26 | HO.PM.IMPN ---
Subjective Subjective Date of Service: 05/04/23 Interval History: f/u on synocpe, afib Physical Exam Vital Signs: Vital Signs: Last Vital Signs Temp 98.5 F 05/04/23 08:57 Pulse 61 05/04/23 08:57 Resp 19 05/04/23 08:57 BP 147/75 H 05/04/23 08:57 Pulse Ox 97 05/04/23 08:57 O2 Del Method Room Air 05/04/23 08:57 BMI result Body Mass Index 61.0 Const: Other: General: AO X 3, no acute distress Resp: CTA bilateral CVS: S1,S2,RRR GI: +BS, NT, no distention Skin: No rash Neuro: motor grossly intact Psych: appropriate affect Objective Data Active Medications Acetaminophen (Acetaminophen 325 Mg Tablet) 650 mg PO Q6H PRN PRN Reason: Pain, Mild (Pain Scale 1-3) Albuterol Sulfate (Albuterol Sulfate 90 Mcg 8 Gm Inhaler) 2 puff INHALE Q6H PRN PRN Reason: Shortness Of Breath Apixaban (Apixaban 5 Mg Tablet) 5 mg PO BID [facility] Last Admin: 05/04/23 09:48 Dose: 5 mg Documented By: MAYO Calcium Carbonate/Cholecalciferol (Calcium + Vitamin D 250 Mg Tablet) 250 mg PO DAILY [facility] Cholestyramine Resin (Cholestyramine (With Sugar) 4 Gm Powd.Pack) 1 gm PO BID [facility] Diltiazem HCl (Diltiazem Hcl Cd 120 Mg Cap.Er.Deg) 120 mg PO DAILY [facility]; Protocol Last Admin: 05/04/23 09:47 Dose: 120 mg Documented By: MAYO Diphenoxylate HCl/Atropine (Diphenoxylate/Atrop 2.5/0.025 Tablet) 1 tab PO QID PRN PRN Reason: Diarrhea Ferrous Sulfate (Ferrous Sulfate 324 Mg Tablet.Dr) 324 mg PO DAILY [facility] Fluticasone Propionate (Fluticasone Propionate 100 Mcg Blst.W.Dev) 1 puff INHALE RBID [facility] Gabapentin (Gabapentin 300 Mg Capsule) 300 mg PO TID [facility] Last Admin: 05/04/23 09:47 Dose: 300 mg Documented By: MAYO Lisinopril (Lisinopril 5 Mg Tablet) 5 mg PO DAILY [facility]; Protocol Last Admin: 05/04/23 09:47 Dose: 5 mg Documented By: MAYO Melatonin (Melatonin 3 Mg Tablet) 6 mg PO BEDTIME PRN PRN Reason: Insomnia Montelukast Sodium (Montelukast Sodium 10 Mg Tablet) 10 mg PO BEDTIME [facility] Multivitamins/Vitamin C (Multivitamin Tablet) 1 tab PO DAILY [facility] Last Admin: 05/04/23 09:47 Dose: 1 tab Documented By: MAYO Non-Formulary Medication (Budesonide) 9 mg PO DAILY [facility] Omeprazole (Omeprazole 40 Mg Capsule.Dr) 40 mg PO DAILY@0630 [facility] Last Admin: 05/04/23 09:47 Dose: 40 mg Documented By: MAOY Oxybutynin Chloride (Oxybutynin Chloride Er 5 Mg Tab.Er.24) 20 mg PO DAILY [facility] Last Admin: 05/04/23 09:46 Dose: 20 mg Documented By: MAYO Oxycodone HCl (Oxycodone Hcl Immed Release 5 Mg Tablet) 5 mg PO Q6H PRN PRN Reason: Pain (Scale Score 4-6) Pharmacy Consult (Consult Rx Perform Med Rec) 1 each MISCELLANE ONCE PRN PRN Reason: Consult order Sertraline HCl (Sertraline Hcl 50 Mg Tablet) 50 mg PO DAILY [facility] Last Admin: 05/04/23 09:47 Dose: 50 mg Documented By: MAYO Simethicone (Simethicone 80 Mg Tab.Chew) 120 mg PO QID PRN PRN Reason: abdominal distention Sodium Chloride (0.9 % Sodium Chloride Flush 3 Ml Syringe) 3 ml IVFLUSH QSHIFT [facility] Last Admin: 05/04/23 09:49 Dose: 3 ml Documented By: MAYO Sotalol HCl (Sotalol Hcl 80 Mg Tablet) 80 mg PO BID [facility] Labs 05/04/23 07:10 05/04/23 07:10 Labs: Laboratory Results - last 24 hr 05/03/23 05/03/23 05/03/23 12:01 12:01 12:01 MCV 97.8 MCH 31.6 MCHC 32.3 RDW 13.3 Plt Count 296 D MPV 9.5 Immature Gran % (Auto) 0.7 H Neut % (Auto) 71.6 Lymph % (Auto) 17.4 L [place] % (Auto) 8.3 Eos % (Auto) 1.2 Baso % (Auto) 0.8 Lymph # (Auto) 1.3 [place] # (Auto) 0.6 Eos # (Auto) 0.1 Baso # (Auto) 0.1 Abs Immat Gran (auto) 0.05 H Absolute Neuts (auto) 5.3 Absolute Nucleated RBC 0.000 Nucleated RBC % (auto) 0.0 PT 13.1 INR 1.1 APTT 33.6 Anion Gap 12 Estim Creat Clear Calc 161.0 Estimated GFR > 60 Random Glucose 111 Calcium 8.5 Total Bilirubin 0.4 Direct Bilirubin 0.2 AST 15 ALT 11 Alkaline Phosphatase 70 Total Creatine Kinase 49 Troponin I High Sens Total Protein 6.7 Albumin 3.5 05/03/23 05/04/23 05/04/23 12:01 07:10 07:10 MCV 99.8 H MCH 31.7 MCHC 31.7 RDW 13.4 Plt Count 269 MPV 9.9 Immature Gran % (Auto) 0.7 H Neut % (Auto) 67.0 Lymph % (Auto) 19.1 L [place] % (Auto) 9.4 Eos % (Auto) 2.9 Baso % (Auto) 0.9 Lymph # (Auto) 1.0 L [place] # (Auto) 0.5 Eos # (Auto) 0.2 Baso # (Auto) 0.1 Abs Immat Gran (auto) 0.04 H Absolute Neuts (auto) 3.6 Absolute Nucleated RBC 0.000 Nucleated RBC % (auto) 0.0 PT INR APTT Anion Gap 11 L Estim Creat Clear Calc 171.3 Estimated GFR > 60 Random Glucose 92 Calcium 8.7 Total Bilirubin Direct Bilirubin AST ALT Alkaline Phosphatase Total Creatine Kinase Troponin I High Sens 3.1 Total Protein Albumin Assessment and Plan (1) Atrial flutter with rapid ventricular response: Status: Resolved (2) Chest pain: Status: Resolved (3) Hypertensive emergency: Status: Resolved Plan This is a 57-year-old male with pertinent history of atrial fibrillation on anticoagulation, SHAYLA on CPAP, essential hypertension, mood disorder, asthma, BPH who presents to the emergency department for evaluation of syncope and palpitations. #.? Syncope.? Orthostatic versus cardiogenic due to AFib.? #.? Paroxysmal atrial fibrillation on anticoagulation.? DC Multaq and start Sotalol tomorrow #.? SHAYLA.? Continue CPAP at bedtime #.? Morbid obesity.? Patient counseled regarding diet and exercise #.? Essential hypertension.? Continue home antihypertensives #.? Mood disorder.? Continue home mood stabilizers #.? Mild intermittent asthma.? Continue home inhaler #.? BPH:? On Flomax need for inpatient: syncope work up Time Spent With Patient Time: Total time managing care of this patient today ____ minutes. Quality Stroke Does the patient have a stroke diagnosis?: No VTE Prior VTE?: No VTE Risk Level:: Medical - moderate - high VTE Device Contraindication: Treatment Not Indicated VTE Drug Contraindication: N/A - Med Ordered
--- NOTE | 2023-05-04 13:58 | P.CONCA_ITS ---
History of Present Illness History of Present Illness Date of Service: 05/04/23 Requesting physician: David Saavedra Chief complaint: Syncope, PAF. Narrative: 57-year-old gentleman was background history of morbid obesity, restrictive lung disease, bronchial asthma, history of gastric bypass, hypertension and paroxysmal atrial fibrillation. He was seen in the office recently when he was noticed to be in AFib. He previously had atrial fibrillation and was started on Multaq with good rhythm control documented on monitors. Recently he came back to office and was incidentally noticed to be in atrial fibrillation. At that stage we discussed about doing Holter monitoring and on a 7 day Holter monitor he was persistently in atrial fibrillation with heart rate 90 beats per minute on average. He is saying he has been experiencing significant shortness of b reath and fatigue. He also has been getting some chest pains. Is also some concern for syncopal episode. He is saying he is getting night sweats. He has background of pulmonary embolism in the past and previously had IVC filter which was removed and he had a stent placed in his inferior vena cava by Dr. Gaffney. EKG in hospital early showing sinus rhythm. He was taken off the Multaq. He is on apixaban 5 mg twice a day. Is saying that previously when he had pulmonary embolism it did not have chest discomfort. We will check a D-dimer level. Other labs and imaging was reviewed. [facility] Past Medical History Medical History Asthma Bronchial asthma Depression Dyspnea Family history of stent GERD (gastroesophageal reflux disease) History of kidney stones Hyperlipidemia Lumbar disc disease Lumbar disc prolapse with root compression Lymphedema Migration of vascular stent Morbid obesity Neurogenic bladder OA (osteoarthritis) On anticoagulant therapy On beta paty at home SHAYLA on CPAP PAF (paroxysmal atrial fibrillation) Pulmonary embolus Restrictive lung disease Uncomplicated opioid dependence Venous stasis Family History Family History Mother Diabetes Father Brain cancer Sister Diabetes Sister Diabetes Sister Diabetes Brother Blind Brother No problems noted. Brother No problems noted. Brother No problems noted. Brother No problems noted. Daughter No problems noted. Daughter Mental health disorder Son Mental health disorder Son No problems noted. Son No problems noted. Surgical History Surgical History History of esophagogastroduodenoscopy (EGD) Hx of colonoscopy Hx of eye surgery Hx of gastric bypass S/P appendectomy S/P IVC filter Social History Social History Household Members Other:: - 5 kids Are you a primary child care specialist to a significant other at home: No Do you presently have visiting nurse or other home services: Yes (Visiting Nurse- monthly) Alcohol intake: unknown Patient Tobacco Use Status: Never used Tobacco Second Hand Smoke Exposure: No Advance Directives: Yes Advance Directives on File: Yes Advance Directives Date on File: 08/14/21 service: No Current occupational status: disabled Current occupation: rt handed Meds Allergies Allergy/AdvReac Type Severity Reaction Status Date / Time cefaclor [From Ceclor] Allergy Severe hives Verified 05/03/23 11:34 epanolol Allergy Severe hives Verified 05/03/23 11:34 misoprostol Allergy Severe rash Verified 05/03/23 11:34 NSAIDS (Non-Steroidal Allergy Severe GI upset Verified 05/03/23 11:34 Anti-Inflamma Penicillins Allergy Severe hives, Verified 05/03/23 11:34 rash, itching Sulfa (Sulfonamide Allergy Severe Hives Verified 05/03/23 11:34 Antibiotics) Cephalosporins Allergy Intermediate hives Verified 05/03/23 11:34 amoxicillin Allergy Mild rash Verified 05/03/23 11:34 vancomycin Allergy Mild itching Verified 05/03/23 11:34 clindamycin AdvReac Intermediate Rash Verified 05/03/23 11:34 Active Medications: Current Medications Acetaminophen (Acetaminophen 325 Mg Tablet) 650 mg PO Q6H PRN PRN Reason: Pain, Mild (Pain Scale 1-3) Albuterol Sulfate (Albuterol Sulfate 90 Mcg 8 Gm Inhaler) 2 puff INHALE Q6H PRN PRN Reason: Shortness Of Breath Apixaban (Apixaban 5 Mg Tablet) 5 mg PO BID [facility] Last Admin: 05/04/23 09:48 Dose: 5 mg Calcium Carbonate/Cholecalciferol (Calcium + Vitamin D 250 Mg Tablet) 250 mg PO DAILY [facility] Cholestyramine Resin (Cholestyramine (With Sugar) 4 Gm Powd.Pack) 1 gm PO BID [facility] Diltiazem HCl (Diltiazem Hcl Cd 120 Mg Cap.Er.Deg) 120 mg PO DAILY [facility]; Protocol Last Admin: 05/04/23 09:47 Dose: 120 mg Diphenoxylate HCl/Atropine (Diphenoxylate/Atrop 2.5/0.025 Tablet) 1 tab PO QID PRN PRN Reason: Diarrhea Ferrous Sulfate (Ferrous Sulfate 324 Mg Tablet.) 324 mg PO DAILY [facility] Fluticasone Propionate (Fluticasone Propionate 100 Mcg Blst.W.Dev) 1 puff INHALE RBID [facility] Gabapentin (Gabapentin 300 Mg Capsule) 300 mg PO TID [facility] Last Admin: 05/04/23 09:47 Dose: 300 mg Lisinopril (Lisinopril 5 Mg Tablet) 5 mg PO DAILY [facility]; Protocol Last Admin: 05/04/23 09:47 Dose: 5 mg Melatonin (Melatonin 3 Mg Tablet) 6 mg PO BEDTIME PRN PRN Reason: Insomnia Montelukast Sodium (Montelukast Sodium 10 Mg Tablet) 10 mg PO BEDTIME [facility] Multivitamins/Vitamin C (Multivitamin Tablet) 1 tab PO DAILY [facility] Last Admin: 05/04/23 09:47 Dose: 1 tab Non-Formulary Medication (Budesonide) 9 mg PO DAILY [facility] Omeprazole (Omeprazole 40 Mg Capsule.) 40 mg PO DAILY@0630 [facility] Last Admin: 05/04/23 09:47 Dose: 40 mg Oxybutynin Chloride (Oxybutynin Chloride Er 5 Mg Tab.Er.24) 20 mg PO DAILY [facility] Last Admin: 05/04/23 09:46 Dose: 20 mg Oxycodone HCl (Oxycodone Hcl Immed Release 5 Mg Tablet) 5 mg PO Q6H PRN PRN Reason: Pain (Scale Score 4-6) Pharmacy Consult (Consult Rx Perform Med Rec) 1 each MISCELLANE ONCE PRN PRN Reason: Consult order Sertraline HCl (Sertraline Hcl 50 Mg Tablet) 50 mg PO DAILY [facility] Last Admin: 05/04/23 09:47 Dose: 50 mg Simethicone (Simethicone 80 Mg Tab.Chew) 120 mg PO QID PRN PRN Reason: abdominal distention Sodium Chloride (0.9 % Sodium Chloride Flush 3 Ml Syringe) 3 ml IVFLUSH QSHIFT [facility] Last Admin: 07/18/23 09:49 Dose: 3 ml Sotalol HCl (Sotalol Hcl 80 Mg Tablet) 80 mg PO BID [facility] Home Medications Medication Instructions Recorded Confirmed Last Taken Type albuterol sulfate 90 mcg/actuation 2 inh inhalation Q6H PRN Shortness 05/13/21 05/03/23 10/29/22 History aerosol inhaler Of Breath montelukast 10 mg tablet 10 mg PO BEDTIME 05/13/21 05/03/23 10/28/22 History omeprazole 40 mg capsule,delayed 40 mg PO DAILY@0630 05/13/21 05/03/23 04/15/23 History release sertraline 50 mg tablet 50 mg PO DAILY 05/13/21 05/03/23 04/15/23 History apixaban 5 mg tablet 5 mg PO BID 02/06/22 05/03/23 04/15/23 History calcium carbonate 600 mg-vitamin 1 cap PO DAILY 02/06/22 05/03/23 04/15/23 History D3 10 mcg (400 unit) capsule ferrous sulfate 325 mg (65 mg 1 tab PO DAILY 03/26/22 05/03/23 10/25/22 History iron) tablet gabapentin 300 mg capsule 300 mg PO TID 09/30/22 05/03/23 04/15/23 History lisinopril 5 mg tablet 5 mg PO DAILY 03/29/23 05/03/23 04/15/23 History diphenoxylate-atropine 2.5 5 ml PO QID PRN Diarrhea 05/03/23 05/03/23 Unknown History mg-0.025 mg/5 mL oral liquid fluticasone propionate 50 1 inh inhalation BID 05/03/23 05/03/23 Unknown History mcg/actuation blister powder for inhalation (Flovent Diskus) multivitamin (Daily-Brent tablet) 1 tab PO DAILY 05/03/23 05/03/23 Unknown History oxybutynin chloride 15 mg 15 mg PO DAILY 05/03/23 05/03/23 Unknown History tablet,extended release 24 hr oxybutynin chloride 5 mg 5 mg PO DAILY 05/03/23 05/03/23 Unknown History tablet,extended release 24 hr oxycodone 5 mg tablet 5 mg PO Q6H PRN Pain (Scale Score 05/03/23 05/03/23 Unknown History 4-6) Physical Exam Vital Signs: Vital Signs: Last Vital Signs Temp 98.5 F 05/04/23 08:57 Pulse 61 05/04/23 08:57 Resp 19 05/04/23 08:57 BP 147/75 H 05/04/23 08:57 Pulse Ox 97 05/04/23 08:57 O2 Del Method Room Air 05/04/23 08:57 BMI result Body Mass Index 61.0 GENERAL APPEARANCE: in no acute distress, morbidly obese. NECK: no carotid bruit, no jugular venous distention. SKIN: Chronic lymphedema bilateral lower extremities. HEART: no murmurs, regular rate and rhythm. LUNGS: clear to auscultation bilaterally. ABDOMEN: soft, nontender. EXTREMITIES: Chronic lymphedema. PERIPHERAL PULSES: equal. NEUROLOGIC: No gross deficits, AAO X 3 Objective Labs and Meds 05/04/23 07:10 05/04/23 07:10 Lab results: Laboratory Results - last 24 hr 05/04/23 05/04/23 07:10 07:10 WBC 5.4 RBC 4.17 L Hgb 13.2 L Hct 41.6 L MCV 99.8 H MCH 31.7 MCHC 31.7 RDW 13.4 Plt Count 269 MPV 9.9 Immature Gran % (Auto) 0.7 H Neut % (Auto) 67.0 Lymph % (Auto) 19.1 L Hendricks % (Auto) 9.4 Eos % (Auto) 2.9 Baso % (Auto) 0.9 Lymph # (Auto) 1.0 L Hendricks # (Auto) 0.5 Eos # (Auto) 0.2 Baso # (Auto) 0.1 Abs Immat Gran (auto) 0.04 H Absolute Neuts (auto) 3.6 Absolute Nucleated RBC 0.000 Nucleated RBC % (auto) 0.0 Sodium 141 Potassium 3.9 Chloride 107 Carbon Dioxide 27 Anion Gap 11 L BUN 15 Creatinine 0.78 Estim Creat Clear Calc 171.3 Estimated GFR > 60 Random Glucose 92 Calcium 8.7 Imaging Radiologist's impression: Impressions Chest X-Ray 05/03/23 12:18 IMPRESSION: Unremarkable chest exam. Head CT 05/03/23 14:17 IMPRESSION: 1. No acute intracranial process seen. 2. Mild cerebral volume loss with chronic small vessel ischemic changes. Assessment and Plan (1) Paroxysmal A-fib: Status: Acute (2) Syncope: Status: Acute (3) Essential hypertension: Status: Acute (4) Chest pain: Status: Acute Plan 57-year-old gentleman who is presenting with multiple complaints. He was seen in the office recently and was noted to be in AFib. He previously had atrial fibrillation and was treated with Multaq for rhythm control strategy with some success. Recently noticed to be in AFib and our plan was to cardiovert him but he reverted to sinus rhythm. On his monitor interestingly he was in AFib for 7 days. He has been on apixaban 5 mg twice a day, diltiazem 120 mg, metoprolol succinate 100 mg as well as Multaq 400 mg twice a day at home. Multaq has been discontinued. His metoprolol also has been held currently. He is currently taking diltiazem 120 mg daily which I think we can continue. Given his chest pains I do not feel comfortable to start flecainide or propafenone him. I am not sure what the etiology of these chest pains is has he is super anxious also. His biomarkers and EKGs are normal. We will wait for 1 more day and tomorrow morning start him on sotalol 80 mg b.i.d.. Will follow the sotalol protocol and check the EKGs before every dose and adjust the does accordingly. If he can not tolerate sotalol and maintain sinus rhythm then he can be discharged with that. In terms of his chest pains, I am checking a D-dimer to make sure he does not have any thrombotic issues going on as he had previous PE and has a stent in the inferior vena cava. If D-dimer is elevated my inclination is to do a chest CTA. D-dimer is negative then I think we should do an exercise stress test on him as he gets loaded with sotalol. Thank you for allowing me to participate in the care of your patient. Please feel free to contact me if you have any questions. Time Spent With Patient Time: Total time managing care of this patient today ____ minutes. Procedures Date of Service Date of Service: 05/04/23
[2023-05-04 16:19] LABS: D Dimer High Sensitivity < 150 NG/ML
[2023-05-04 19:25] VITALS: BP 134/60; PULSE 82; RESP 18; TEMP 36.3; O2SAT 94
[2023-05-04] MEDS: Fluticasone Propionate 100 MCG BLST.W.DEV 1 PUFF INHALE (19:37)
[2023-05-04 19:39] VITALS: PULSE 87; RESP 16; O2SAT 95
[2023-05-04] MEDS: Melatonin 3 MG TABLET 6 MG PO (21:20)
[2023-05-04] MEDS: Cholestyramine (With Sugar) 4 GM POWD.PACK 1 GM PO (21:20)
[2023-05-04] MEDS: Montelukast Sodium 10 MG TABLET PO (21:20)
[2023-05-04 23:47] VITALS: BP 121/71; PULSE 66; RESP 18; TEMP 36.9; O2SAT 94
--- NOTE | 2023-05-05 | ECG_ITS ---
Test Reason : sotalol protocol Blood Pressure : / mmHG Vent. Rate : 139 BPM Atrial Rate : 357 BPM P-R Int : 000 ms QRS Dur : 104 ms QT Int : 280 ms P-R-T Axes : 000 054 -11 degrees QTc Int : 426 ms Poor data quality, interpretation may be adversely affected Atrial flutter with variable A-V block Incomplete right bundle branch block Abnormal ECG When compared with ECG of 04-MAY-2023 07:02, Atrial flutter has replaced Sinus rhythm Vent. rate has increased BY [address] now depressed in Lateral leads T wave inversion now evident in Inferior leads T wave amplitude has decreased in Lateral leads Referred By: David Saavedra Electronically Signed By:Steven Ch
--- NOTE | 2023-05-05 | ECG_ITS ---
Test Reason : sotolol Blood Pressure : / mmHG Vent. Rate : 075 BPM Atrial Rate : 312 BPM P-R Int : 000 ms QRS Dur : 108 ms QT Int : 392 ms P-R-T Axes : 000 050 034 degrees QTc Int : 437 ms Atrial flutter with variable A-V block Abnormal ECG When compared with ECG of 05-MAY-2023 11:50, No significant changes seen Referred By: David Saavedra Electronically Signed By:Steven Ch
[2023-05-05 03:37] VITALS: BP 121/71; PULSE 66; RESP 20; TEMP 36.9; O2SAT 94
[2023-05-05] MEDS: Omeprazole 40 MG CAPSULE.DR PO (05:52)
--- NOTE | 2023-05-05 07:00 | CA_ITS ---
Transthoracic Echocardiogram Patient (Last, First, Middle): Jan Villarreal, Gender: Male Date of : 1965 Age: 57 Procedure Date: 05/05/2023 Procedure Type: Transthoracic [place] [facility] [place]: 175.26 cm Weight: 186.88 kg BSA: 2.81 m2 Heart Rate: 68 bpm BP: 147 / 75 mmHg Project Product Manager: SB Referring MD: Steven Ch MD Symptoms: PAF, syncope. Study Quality: Poor/supine and HOB up/restr mobility/BSA ECG Rhythm: Atrial flutter Conclusions: - Normal left ventricular size and systolic function. There is mildly increased left ventricular wall thickness. The visually estimated ejection fraction is between 55-60%. - There is mild dilatation of the sinuses of Valsalva measuring 4.00 cm and mild dilatation of the ascending aorta measuring 3.80 cm. - Technically very limited study. Findings Procedure Information The quality of the study was apical images are suboptimal for definitive comment. The study quality is limited by patients body habitus. Left Ventricle Normal left ventricular size and systolic function. There is mildly increased left ventricular wall thickness. The visually estimated ejection fraction is between 55-60%. There is no evidence of regional wall motion abnormalities. Diastolic function is indeterminate on the basis of available data. Right Ventricle The right ventricle was not well visualized. Atria The left atrium was not well visualized. Aortic Valve The aortic valve was not well visualized. Mitral Valve The mitral valve was not well visualized. Pulmonic Valve Normal pulmonic valve structure and function. There is trace pulmonic valve regurgitation. Tricuspid Valve Normal tricuspid valve structure. There is mild tricuspid valve regurgitation. Normal right atrial pressure. There is no evidence of pulmonary hypertension. Great Vessels There is mild dilatation of the sinuses of Valsalva measuring 4.00 cm and mild dilatation of the ascending aorta measuring 3.80 cm. The visualized portions of the pulmonary artery and branches are normal. Venous The inferior vena cava is normal in size and collapses greater than 50% with inspiration. Pericardium/Pleural There is no evidence of pericardial effusion. Prior Study Comparison No significant change compared to prior study dated: 03/27/2022. Measurements 2D Linear Measurements IVSd: 1.53 0.6-0.9/0.6-1.0 cm LVIDd: 4.82 3.9-5.3/4.2-5.9 cm LVIDd Index: 1.72 2.4-3.2/2.2-3.1 cm/m2 LVIDs: 2.94 2.0-3.6 cm LVPWd: 1.27 0.7-1.1 cm LA Diam: 4.40 2.7-3.8/3.0-4.0 cm LAIDs Index: 1.57 1.5-2.3 cm/m2 LV Mass: 343.69 67-162/88-224 g LV Mass Index: 122.31 43-95/49-115 g/m2 LVOT Diam: 2.20 3.0+(-)1.3 cm 2D Systolic Function EF Teich: 69.00 >55% LVOT LVOT Diam: 2.20 LVOT Area: 3.80 Tricuspid Valve TR Pk Aidan: 2.18 TR Pk Grad: 19.00 RA Press: 8.00 RVSP: 27.00 Great Vessels Aorta Sinus of Valsalva: 4.00 2.0-3.5 cm Ao Asc: 3.80 2.1-3.4 cm Pulmonary Valve PV Pk Aidan: 0.84 Peak PV Grad: 3.00 Updated in Other Vendor System with Status of Final Steven Ch MD electronically signed on 05/05/2023 9:23:30 PM with status of Final
[2023-05-05 07:33] VITALS: BP 131/82; PULSE 62; RESP 18; TEMP 36.6; O2SAT 94
--- NOTE | 2023-05-05 08:08 | HO.PM.IMPN ---
Subjective Subjective Date of Service: 05/05/23 Interval History: f/u on synocpe, afib, no new issues Physical Exam Vital Signs: Vital Signs: Last Vital Signs Temp 97.9 F 05/05/23 07:33 Pulse 62 05/05/23 07:33 Resp 18 05/05/23 07:33 BP 131/82 05/05/23 07:33 Pulse Ox 94 05/05/23 07:33 O2 Del Method Room Air 05/05/23 07:33 BMI result Body Mass Index 61.0 Const: Other: General: AO X 3, no acute distress Resp: CTA bilateral CVS: S1,S2,RRR GI: +BS, NT, no distention Skin: No rash Neuro: motor grossly intact Psych: appropriate affect Objective Data Active Medications Acetaminophen (Acetaminophen 325 Mg Tablet) 650 mg PO Q6H PRN PRN Reason: Pain, Mild (Pain Scale 1-3) Albuterol Sulfate (Albuterol Sulfate 90 Mcg 8 Gm Inhaler) 2 puff INHALE Q6H PRN PRN Reason: Shortness Of Breath Apixaban (Apixaban 5 Mg Tablet) 5 mg PO BID [facility] Last Admin: 05/04/23 21:20 Dose: 5 mg Documented By: SEJAL Calcium Carbonate/Cholecalciferol (Calcium + Vitamin D 250 Mg Tablet) 250 mg PO DAILY [facility] Cholestyramine Resin (Cholestyramine (With Sugar) 4 Gm Powd.Pack) 1 gm PO BID [facility] Last Admin: 05/04/23 21:20 Dose: 1 gm Documented By: SEJAL Diltiazem HCl (Diltiazem Hcl Cd 120 Mg Cap.Er.Deg) 120 mg PO DAILY [facility]; Protocol Last Admin: 05/04/23 09:47 Dose: 120 mg Documented By: MAYO Diphenoxylate HCl/Atropine (Diphenoxylate/Atrop 2.5/0.025 Tablet) 1 tab PO QID PRN PRN Reason: Diarrhea Ferrous Sulfate (Ferrous Sulfate 324 Mg Tablet.Dr) 324 mg PO DAILY [facility] Fluticasone Propionate (Fluticasone Propionate 100 Mcg Blst.W.Dev) 1 puff INHALE RBID [facility] Last Admin: 05/04/23 19:37 Dose: 1 puff Documented By: CHEL Gabapentin (Gabapentin 300 Mg Capsule) 300 mg PO TID [facility] Last Admin: 05/04/23 21:20 Dose: 300 mg Documented By: SEJAL Lisinopril (Lisinopril 5 Mg Tablet) 5 mg PO DAILY [facility]; Protocol Last Admin: 05/04/23 09:47 Dose: 5 mg Documented By: MAYO Melatonin (Melatonin 3 Mg Tablet) 6 mg PO BEDTIME PRN PRN Reason: Insomnia Last Admin: 05/04/23 21:20 Dose: 6 mg Documented By: SEJAL Montelukast Sodium (Montelukast Sodium 10 Mg Tablet) 10 mg PO BEDTIME [facility] Last Admin: 05/04/23 21:20 Dose: 10 mg Documented By: SEJAL Multivitamins/Vitamin C (Multivitamin Tablet) 1 tab PO DAILY [facility] Last Admin: 05/04/23 09:47 Dose: 1 tab Documented By: MAYO Non-Formulary Medication (Budesonide) 9 mg PO DAILY [facility] Omeprazole (Omeprazole 40 Mg Capsule.Dr) 40 mg PO DAILY@0630 [facility] Last Admin: 05/05/23 05:52 Dose: 40 mg Documented By: TAMRA Oxybutynin Chloride (Oxybutynin Chloride Er 5 Mg Tab.Er.24) 20 mg PO DAILY [facility] Last Admin: 05/04/23 09:46 Dose: 20 mg Documented By: MAYO Oxycodone HCl (Oxycodone Hcl Immed Release 5 Mg Tablet) 5 mg PO Q6H PRN PRN Reason: Pain (Scale Score 4-6) Pharmacy Consult (Consult Rx Perform Med Rec) 1 each MISCELLANE ONCE PRN PRN Reason: Consult order Sertraline HCl (Sertraline Hcl 50 Mg Tablet) 50 mg PO DAILY [facility] Last Admin: 05/04/23 09:47 Dose: 50 mg Documented By: MAYO Simethicone (Simethicone 80 Mg Tab.Chew) 120 mg PO QID PRN PRN Reason: abdominal distention Sodium Chloride (0.9 % Sodium Chloride Flush 3 Ml Syringe) 3 ml IVFLUSH QSHIFT [facility] Last Admin: 05/04/23 21:20 Dose: 3 ml Documented By: SEJAL Sotalol HCl (Sotalol Hcl 80 Mg Tablet) 80 mg PO BID [facility] Labs 05/04/23 07:10 05/04/23 07:10 Labs: Laboratory Results - last 24 hr 05/04/23 05/04/23 07:10 15:58 D-Dimer High Sensitivty < 150 Anion Gap 11 L Estim Creat Clear Calc 171.3 Estimated GFR > 60 Random Glucose 92 Calcium 8.7 Assessment and Plan (1) Atrial flutter with rapid ventricular response: Status: Resolved (2) Chest pain: Status: Resolved (3) Hypertensive emergency: Status: Resolved Plan This is a 57-year-old male with pertinent history of atrial fibrillation on anticoagulation, SHAYLA on CPAP, essential hypertension, mood disorder, asthma, BPH who presents to the emergency department for evaluation of syncope and palpitations. #.? Syncope, probably due to Orthostatic versus to AFib with RVR. #.? Paroxysmal atrial fibrillation on anticoagulation.? He is now in sinus -cardiology advising starting sotalol per protocol, check mag, prior ecg with normal qtc. Multqs stopped, continue cardizem, stopped metoprolol and continue eliquis. ? #.? SHAYLA.? Continue CPAP at bedtime #.? Morbid obesity.? Patient counseled regarding diet and exercise #.? Essential hypertension.? Continue home antihypertensives #.? Mood disorder.? Continue home mood stabilizers #.? Mild intermittent asthma.? Continue home inhaler #.? BPH:? On Flomax DVT P: eliquis need for inpatient: syncope work up, sotalol loading Time Spent With Patient Time: Total time managing care of this patient today ____ minutes. Quality Stroke Does the patient have a stroke diagnosis?: No VTE Prior VTE?: No VTE Risk Level:: Medical - moderate - high VTE Device Contraindication: Treatment Not Indicated VTE Drug Contraindication: N/A - Med Ordered
--- NOTE | 2023-05-05 08:41 | MHC.CM.PN ---
CM met with Patient at bedside and addressed IMM with him, providing Patient with the original and placing a copy on the chart. Patient lives in a house with his /HCP and 2 adult children and he uses a cane to assist with mobility. Patient receives a [facility] [employer] visit Q 3 months and home/resume said service is the goal. CM has initiated and will follow for dc planning. Patient has received Covid vax x4 and his PCP is Dr. Destiny Trinidad.
[2023-05-05] MEDS: Ferrous Sulfate 324 MG TABLET.DR PO (09:12)
[2023-05-05] MEDS: Apixaban 5 MG TABLET PO ×2 (09:12→21:47)
[2023-05-05] MEDS: dilTIAZem HCL CD 120 MG CAP.ER.DEG PO (09:12)
[2023-05-05] MEDS: Multivitamin TABLET 1 TAB PO (09:12)
[2023-05-05] MEDS: lisinopriL 5 MG TABLET PO (09:12)
[2023-05-05] MEDS: Calcium + Vitamin D 250 MG TABLET PO (09:12)
[2023-05-05] MEDS: Gabapentin 300 MG CAPSULE PO ×3 (09:12→21:47)
[2023-05-05] MEDS: Sertraline HCL 50 MG TABLET PO (09:13)
[2023-05-05] MEDS: oxyBUTYnin chloride ER 5 MG TAB.ER.24 20 MG PO (09:13)
[2023-05-05] MEDS: Cholestyramine (With Sugar) 4 GM POWD.PACK 1 GM PO ×2 (09:13→21:47)
[2023-05-05] MEDS: 0.9 % Sodium Chloride Flush 3 ML SYRINGE IVFLUSH ×2 (09:14→21:47)
[2023-05-05] MEDS: Sotalol HCL 80 MG TABLET PO ×2 (09:38→21:47)
[2023-05-05 10:33] LABS: Anion Gap 12 (12-20); Blood Urea Nitrogen 17 mg/dL (9-16); Calcium 9.4 mg/dL (8.4-10.2); Carbon Dioxide 26 mmol/L (22-29); Chloride 108 mmol/L (96-108); Creatinine Clr Calc Pharmacy 178.1; Estimated Glomerular Filt Rate > 60; Glucose Random 121 mg/dL (60-115); Potassium 3.9 mmol/L (3.3-5.1); Sodium 142 mmol/L (135-145)
[2023-05-05 11:23] VITALS: BP 121/64; PULSE 72; RESP 18; TEMP 37.1; O2SAT 92
--- NOTE | 2023-05-05 12:00 | ECG_ITS ---
Test Reason : sotolol protocol Blood Pressure : / mmHG Vent. Rate : 073 BPM Atrial Rate : 000 BPM P-R Int : 000 ms QRS Dur : 108 ms QT Int : 390 ms P-R-T Axes : 000 143 144 degrees QTc Int : 429 ms Atrial flutter Leads reversal Abnormal ECG When compared with ECG of 05-MAY-2023 09:34, No significant changes seen Referred By: Steven Ch Electronically Signed By:Steven Ch
--- NOTE | 2023-05-05 12:22 | PC.NURSE ---
Addendum entered by Markus Macdonald RN 05/05/23 15:21: during follow-up ecg, patient had involuntary movement, ecg reported alarmingly incorrect results, so a second ecg was obtained with correct results Original Note: pt started on sotolol this am. pre-dose QTC was 426msec @ 0930. Follow-up QTc at 1145 was 454msec
[2023-05-05 15:57] VITALS: BP 122/77; PULSE 85; RESP 18; TEMP 37.3; O2SAT 92
--- NOTE | 2023-05-05 16:05 | PM.PNCARD ---
Subjective Subjective Date of Service: 05/05/23 Interval history: Seen and examined at bedside. He is in atrial flutter currently. His Multaq was discontinued and started the sotalol load today. He received 80 mg of sotalol in the morning. His QTc so far stable. Physical Exam Vital Signs: Last Vital Signs Temp 99.2 F 05/05/23 15:57 Pulse 85 05/05/23 15:57 Resp 18 05/05/23 15:57 BP 122/77 05/05/23 15:57 Pulse Ox 92 05/05/23 15:57 O2 Del Method Room Air 05/05/23 15:57 BMI result Body Mass Index 61.0 GENERAL APPEARANCE: in no acute distress, morbidly obese. NECK: no carotid bruit, no jugular venous distention. SKIN: Chronic lymphedema bilateral lower extremities. HEART: no murmurs, irregular rate and rhythm. LUNGS: clear to auscultation bilaterally. ABDOMEN: soft, nontender. EXTREMITIES: Chronic lymphedema. PERIPHERAL PULSES: equal. NEUROLOGIC: No gross deficits, AAO X 3 Objective Labs and Meds 05/04/23 07:10 05/05/23 08:56 Lab results: Laboratory Results - last 24 hr 05/04/23 05/05/23 15:58 08:56 D-Dimer High Sensitivty < 150 Sodium 142 Potassium 3.9 Chloride 108 Carbon Dioxide 26 Anion Gap 12 BUN 17 H Creatinine 0.75 Estim Creat Clear Calc 178.1 Estimated GFR > 60 Random Glucose 121 H Calcium 9.4 D Magnesium 2.0 Progress Note: A&P Assessment and plan (1) Chest pain: Status: Acute (2) Atrial flutter: Status: Acute Plan [age] year gentleman presenting multiple complaints. He was noticed to have atrial fibrillation previously and was on Multaq. Recent Holter monitoring showed 7 days of persistent atrial fibrillation. He was complaining of shortness of breath, palpitations, chest pains as well as an episode of syncope. His D-dimer is negative. 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 We stop the Multaq and start him on sotalol. His QTC so far is stable. He can get the next dose of 80 mg total all. He should have repeat EKG 2 hours after every sotalol dose. Hopefully with sotalol loading he will convert back to sinus rhythm. If he does not then we will cardiovert him. Continue anticoagulation as before. About his chest pains I am unsure currently and would decide as we control the rhythm. He may need stress testing. Thank you for allowing me to participate in the care of your patient. Please feel free to contact me if you have any questions. Time Spent With Patient Time: Total time managing care of this patient today ____ minutes. Progress Note: Quality Stroke Does the patient have a stroke diagnosis?: No Procedures Date of Service Date of Service: 05/05/23
[2023-05-05] MEDS: Fluticasone Propionate 100 MCG BLST.W.DEV 1 PUFF INHALE (18:50)
[2023-05-05 18:51] VITALS: PULSE 85; RESP 18; O2SAT 96
[2023-05-05 19:43] VITALS: BP 136/83; PULSE 83; RESP 18; TEMP 37.1; O2SAT 96
--- NOTE | 2023-05-05 21:23 | ECG_ITS ---
Test Reason : sotolol Blood Pressure : / mmHG Vent. Rate : 067 BPM Atrial Rate : 000 BPM P-R Int : 000 ms QRS Dur : 102 ms QT Int : 402 ms P-R-T Axes : 000 054 042 degrees QTc Int : 424 ms Atrial fibrillation Abnormal ECG When compared with ECG of 05-MAY-2023 15:08, Atrial fibrillation has replaced Atrial flutter Referred By: David Saavedra Electronically Signed By:Steven Ch
--- NOTE | 2023-05-05 21:38 | PC.NURSE ---
Addendum entered by Nallely Mejía RN 05/05/23 23:58: Follow-up EKG obtained at 23:46 per protocol for Sotalol treatment. QTC is 426ms Original Note: EKG obtained at 21:23 per protocol for Sotalol treatment. Pre-dose QTC is 424ms. Will obtain follow-up EKG 2 hours after administering.
[2023-05-05] MEDS: Montelukast Sodium 10 MG TABLET PO (21:47)
[2023-05-05] MEDS: Melatonin 3 MG TABLET 6 MG PO (21:47)
--- NOTE | 2023-05-05 23:00 | ECG_ITS ---
Test Reason : Sotalol load Blood Pressure : / mmHG Vent. Rate : 056 BPM Atrial Rate : 000 BPM P-R Int : 000 ms QRS Dur : 098 ms QT Int : 442 ms P-R-T Axes : 000 048 041 degrees QTc Int : 426 ms Atrial fibrillation with slow ventricular response Abnormal ECG When compared with ECG of 05-MAY-2023 21:23, No significant change was found Referred By: David Saavedra Electronically Signed By:Steven Ch
[2023-05-06] VITALS (8 sets, daily range): BP systolic 96–148; BP diastolic 55–67; PULSE 51–83; RESP 14–18; TEMP 36.1–37; O2SAT 92–98
--- NOTE | 2023-05-06 | ECG_ITS ---
Test Reason : sotolol protocol Blood Pressure : / mmHG Vent. Rate : 059 BPM Atrial Rate : 000 BPM P-R Int : 000 ms QRS Dur : 106 ms QT Int : 430 ms P-R-T Axes : 000 044 038 degrees QTc Int : 425 ms Atrial fibrillation with slow ventricular response Abnormal ECG When compared with ECG of 05-MAY-2023 23:46, No significant change was found Referred By: David Saavedra Electronically Signed By:Steven Ch
[2023-05-06] MEDS: Omeprazole 40 MG CAPSULE.DR PO (05:47)
[2023-05-06 07:06] LABS: Anion Gap 10 (12-20); Blood Urea Nitrogen 16 mg/dL (9-16); Calcium 8.9 mg/dL (8.4-10.2); Carbon Dioxide 26 mmol/L (22-29); Chloride 107 mmol/L (96-108); Creatinine Clr Calc Pharmacy 173.5; Estimated Glomerular Filt Rate > 60; Glucose Random 112 mg/dL (60-115); Magnesium 1.9 mg/dL (1.6-2.6); Potassium 3.9 mmol/L (3.3-5.1); Sodium 139 mmol/L (135-145)
[2023-05-06] MEDS: Fluticasone Propionate 100 MCG BLST.W.DEV 1 PUFF INHALE (07:57)
--- NOTE | 2023-05-06 09:20 | P.PNIM_ITS ---
Subjective Subjective Date of Service: 05/06/23 Interval History: f/u on synocpe, afib, no new issues, started on sotalol yesterday, still in afib, qtc and electrolytes ok Physical Exam Vital Signs: Vital Signs: Last Vital Signs Temp 98.5 F 05/06/23 07:06 Pulse 83 05/06/23 08:03 Resp 16 05/06/23 08:03 BP 113/66 05/06/23 07:06 Pulse Ox 97 05/06/23 07:06 O2 Del Method Room Air 05/06/23 07:06 BMI result Body Mass Index 61.0 Const: Other: General: AO X 3, no acute distress Resp: CTA bilateral CVS: S1,S2 iregular iregular GI: +BS, NT, no distention Skin: No rash Neuro: motor grossly intact Psych: appropriate affect Objective Data Active Medications Acetaminophen (Acetaminophen 325 Mg Tablet) 650 mg PO Q6H PRN PRN Reason: Pain, Mild (Pain Scale 1-3) Albuterol Sulfate (Albuterol Sulfate 90 Mcg 8 Gm Inhaler) 2 puff INHALE Q6H PRN PRN Reason: Shortness Of Breath Apixaban (Apixaban 5 Mg Tablet) 5 mg PO BID [facility] Last Admin: 05/05/23 21:47 Dose: 5 mg Documented By: SEJAL Calcium Carbonate/Cholecalciferol (Calcium + Vitamin D 250 Mg Tablet) 250 mg PO DAILY [facility] Last Admin: 05/05/23 09:12 Dose: 250 mg Documented By: PRAKASH Cholestyramine Resin (Cholestyramine (With Sugar) 4 Gm Powd.Pack) 1 gm PO BID [facility] Last Admin: 05/05/23 21:47 Dose: 1 gm Documented By: SEJAL Diltiazem HCl (Diltiazem Hcl Cd 120 Mg Cap.Er.Deg) 120 mg PO DAILY [facility]; Protocol Last Admin: 05/05/23 09:12 Dose: 120 mg Documented By: PRAKASH Diphenoxylate HCl/Atropine (Diphenoxylate/Atrop 2.5/0.025 Tablet) 1 tab PO QID PRN PRN Reason: Diarrhea Ferrous Sulfate (Ferrous Sulfate 324 Mg Tablet.) 324 mg PO DAILY [facility] Last Admin: 05/05/23 09:12 Dose: 324 mg Documented By: PRAKASH Fluticasone Propionate (Fluticasone Propionate 100 Mcg Blst.W.Dev) 1 puff INHALE RBID [facility] Last Admin: 05/06/23 07:57 Dose: 1 puff Documented By: BENJI Gabapentin (Gabapentin 300 Mg Capsule) 300 mg PO TID [facility] Last Admin: 05/05/23 21:47 Dose: 300 mg Documented By: SEJAL Lisinopril (Lisinopril 5 Mg Tablet) 5 mg PO DAILY [facility]; Protocol Last Admin: 05/05/23 09:12 Dose: 5 mg Documented By: PRAKASH Melatonin (Melatonin 3 Mg Tablet) 6 mg PO BEDTIME PRN PRN Reason: Insomnia Last Admin: 05/05/23 21:47 Dose: 6 mg Documented By: SEJAL Montelukast Sodium (Montelukast Sodium 10 Mg Tablet) 10 mg PO BEDTIME [facility] Last Admin: 05/05/23 21:47 Dose: 10 mg Documented By: SEJAL Multivitamins/Vitamin C (Multivitamin Tablet) 1 tab PO DAILY [facility] Last Admin: 05/05/23 09:12 Dose: 1 tab Documented By: PRAKASH Non-Formulary Medication (Budesonide) 9 mg PO DAILY [facility] Omeprazole (Omeprazole 40 Mg Capsule.Dr) 40 mg PO DAILY@0630 [facility] Last Admin: 05/06/23 05:47 Dose: 40 mg Documented By: SEJAL Oxybutynin Chloride (Oxybutynin Chloride Er 5 Mg Tab.Er.24) 20 mg PO DAILY [facility] Last Admin: 05/05/23 09:13 Dose: 20 mg Documented By: PRAKASH Oxycodone HCl (Oxycodone Hcl Immed Release 5 Mg Tablet) 5 mg PO Q6H PRN PRN Reason: Pain (Scale Score 4-6) Pharmacy Consult (Consult Rx Perform Med Rec) 1 each MISCELLANE ONCE PRN PRN Reason: Consult order Sertraline HCl (Sertraline Hcl 50 Mg Tablet) 50 mg PO DAILY [facility] Last Admin: 05/05/23 09:13 Dose: 50 mg Documented By: PRAKASH Simethicone (Simethicone 80 Mg Tab.Chew) 120 mg PO QID PRN PRN Reason: abdominal distention Sodium Chloride (0.9 % Sodium Chloride Flush 3 Ml Syringe) 3 ml IVFLUSH QSHIFT [facility] Last Admin: 05/05/23 21:47 Dose: 3 ml Documented By: SEJAL Sotalol HCl (Sotalol Hcl 80 Mg Tablet) 80 mg PO BID [facility] Last Admin: 05/05/23 21:47 Dose: 80 mg Documented By: SEJAL Labs 05/04/23 07:10 05/06/23 06:25 Labs: Laboratory Results - last 24 hr 05/05/23 05/06/23 08:56 06:25 Anion Gap 12 10 L Estim Creat Clear Calc 178.1 173.5 Estimated GFR > 60 > 60 Random Glucose 121 H 112 Calcium 9.4 D 8.9 Magnesium 2.0 1.9 Assessment and Plan (1) Atrial flutter with rapid ventricular response: Status: Resolved (2) Chest pain: Status: Resolved (3) Hypertensive emergency: Status: Resolved Plan This is a 57-year-old male with pertinent history of atrial fibrillation on anticoagulation, SHAYLA on CPAP, essential hypertension, mood disorder, asthma, BPH who presents to the emergency department for evaluation of syncope and palpitations. #.? Syncope, probably due to Orthostatic versus to AFib with RVR. #.? Paroxysmal atrial fibrillation on anticoagulation.? He is back in afib started on sotalol load yesterday, QTcs are ok, continue monitoring electrolytes mag and QTc. Cardiology to further advise #.? SHAYLA.? Continue CPAP at bedtime #.? Morbid obesity.? Patient counseled regarding diet and exercise #.? Essential hypertension.? Continue home antihypertensives #.? Mood disorder.? Continue home mood stabilizers #.? Mild intermittent asthma.? Continue home inhaler #.? BPH:? On Flomax DVT P: eliquis need for inpatient: syncope work up, sotalol loading Time Spent With Patient Time: Total time managing care of this patient today ____ minutes. Quality Stroke Does the patient have a stroke diagnosis?: No VTE Prior VTE?: No VTE Risk Level:: Medical - moderate - high VTE Device Contraindication: Treatment Not Indicated VTE Drug Contraindication: N/A - Med Ordered
[2023-05-06] MEDS: Sertraline HCL 50 MG TABLET PO (09:26)
[2023-05-06] MEDS: Apixaban 5 MG TABLET PO ×2 (09:26→22:03)
[2023-05-06] MEDS: lisinopriL 5 MG TABLET PO (09:26)
[2023-05-06] MEDS: Multivitamin TABLET 1 TAB PO (09:26)
[2023-05-06] MEDS: Ferrous Sulfate 324 MG TABLET.DR PO (09:26)
[2023-05-06] MEDS: 0.9 % Sodium Chloride Flush 3 ML SYRINGE IVFLUSH ×3 (09:26→22:07)
[2023-05-06] MEDS: Gabapentin 300 MG CAPSULE PO ×3 (09:26→22:04)
[2023-05-06] MEDS: oxyBUTYnin chloride ER 5 MG TAB.ER.24 20 MG PO (09:26)
[2023-05-06] MEDS: Calcium + Vitamin D 250 MG TABLET PO (09:26)
[2023-05-06] MEDS: dilTIAZem HCL CD 120 MG CAP.ER.DEG PO (09:26)
[2023-05-06] MEDS: Sotalol HCL 80 MG TABLET PO ×2 (09:27→22:03)
[2023-05-06] MEDS: Cholestyramine (With Sugar) 4 GM POWD.PACK 1 GM PO ×2 (09:27→22:04)
--- NOTE | 2023-05-06 09:41 | PC.NURSE ---
Addendum entered by Yudi Gross RN 05/06/23 12:00: Follow-up EKG obtained at 11:43 per protocol for Sotalol treatment. QTC is 445ms Original Note: EKG obtained at 7:14 per protocol for Sotalol treatment. Pre-dose QTC is 425ms. Will obtain follow-up EKG 2 hours after administering.
--- NOTE | 2023-05-06 11:28 | ECG_ITS ---
Test Reason : sotolol Blood Pressure : / mmHG Vent. Rate : 067 BPM Atrial Rate : 267 BPM P-R Int : 000 ms QRS Dur : 094 ms QT Int : 422 ms P-R-T Axes : 000 033 031 degrees QTc Int : 445 ms Atrial flutter with variable A-V block Abnormal ECG When compared with ECG of 06-MAY-2023 09:07, Atrial flutter has replaced Atrial fibrillation Referred By: David Saavedra Electronically Signed By:Steven Ch
--- NOTE | 2023-05-06 14:16 | ECG_ITS ---
Test Reason : converted Blood Pressure : / mmHG Vent. Rate : 054 BPM Atrial Rate : 054 BPM P-R Int : 202 ms QRS Dur : 104 ms QT Int : 454 ms P-R-T Axes : 027 032 033 degrees QTc Int : 430 ms Sinus bradycardia Cannot rule out Anterior infarct , age undetermined Abnormal ECG When compared with ECG of 06-MAY-2023 11:43, Sinus rhythm has replaced Atrial flutter Referred By: David Saavedra Electronically Signed By:Steven Ch
--- NOTE | 2023-05-06 14:44 | PM.PNCARD ---
Subjective Subjective Date of Service: 05/06/23 Interval history: Seen examined at bedside. Feeling better. In atrial flutter. Physical Exam Vital Signs: Last Vital Signs Temp 97.7 F 05/06/23 11:28 Pulse 62 05/06/23 11:28 Resp 18 05/06/23 11:28 BP 148/64 H 05/06/23 11:28 Pulse Ox 98 05/06/23 11:28 O2 Del Method Room Air 05/06/23 11:28 BMI result Body Mass Index 61.0 GENERAL APPEARANCE: in no acute distress, morbidly obese. NECK: no carotid bruit, no jugular venous distention. SKIN: Chronic lymphedema bilateral lower extremities. HEART: no murmurs, irregular rate and rhythm. LUNGS: clear to auscultation bilaterally. ABDOMEN: soft, nontender. EXTREMITIES: Chronic lymphedema. PERIPHERAL PULSES: equal. NEUROLOGIC: No gross deficits, AAO X 3 Objective Labs and Meds 05/04/23 07:10 05/06/23 06:25 Lab results: Laboratory Results - last 24 hr 05/06/23 06:25 Sodium 139 Potassium 3.9 Chloride 107 Carbon Dioxide 26 Anion Gap 10 L BUN 16 Creatinine 0.77 Estim Creat Clear Calc 173.5 Estimated GFR > 60 Random Glucose 112 Calcium 8.9 Magnesium 1.9 Progress Note: A&P Assessment and plan (1) Paroxysmal A-fib: Status: Acute Plan [age] year gentleman presenting with paroxysmal atrial fibrillation/atrial flutter. He also had syncope which is while passing urine and likely vasovagal. Echocardiography was technically very limited but LVEF appears to be normal. He is on sotalol currently. Continue 80 mg p.o. b.i.d.. We will monitor the QT interval closely and he should have EKGs 2 hours after every dose of sotalol. If QTC crosses 500 then sotalol definitely should be held and please page me in that situation. On apixaban. If he continues to be in AFib or flutter tomorrow then we will consider cardioversion. Keep him NPO after midnight. Mildly hypokalemic. Adding spironolactone 25 mg once a day because hypokalemia may worsen QT interval specially was sotalol. Thank you for allowing me to participate in the care of your patient. Please feel free to contact me if you have any questions. Time Spent With Patient Time: Total time managing care of this patient today ____ minutes. Progress Note: Quality Stroke Does the patient have a stroke diagnosis?: No Procedures Date of Service Date of Service: 05/06/23
[2023-05-06] MEDS: Spironolactone 25 MG TABLET PO (15:02)
--- NOTE | 2023-05-06 21:27 | ECG_ITS ---
Test Reason : sotolol Blood Pressure : / mmHG Vent. Rate : 056 BPM Atrial Rate : 056 BPM P-R Int : 190 ms QRS Dur : 106 ms QT Int : 464 ms P-R-T Axes : 062 047 040 degrees QTc Int : 447 ms Sinus bradycardia Possible Left atrial enlargement Borderline ECG When compared with ECG of 06-MAY-2023 14:19, No significant change was found Referred By: David Saavedra Electronically Signed By:Steven Ch
[2023-05-06] MEDS: Montelukast Sodium 10 MG TABLET PO (22:04)
--- NOTE | 2023-05-07 00:17 | ECG_ITS ---
Test Reason : med protocol Blood Pressure : / mmHG Vent. Rate : 049 BPM Atrial Rate : 049 BPM P-R Int : 218 ms QRS Dur : 106 ms QT Int : 486 ms P-R-T Axes : 027 046 041 degrees QTc Int : 439 ms Sinus bradycardia with 1st degree A-V block Otherwise normal ECG When compared with ECG of 06-MAY-2023 21:36, No significant change was found Referred By: David Saavedra Electronically Signed By:Steven Ch
[2023-05-07] MEDS: Melatonin 3 MG TABLET 6 MG PO (00:39)
--- NOTE | 2023-05-07 00:47 | PC.NURSE ---
EKG obtained at 21:30 per protocol for Sotalol treatment. Pre-dose QTC is 431 ms. Follow-up EKG done 2 hours after administering sotalol , QTc 439. .
[2023-05-07 03:30] VITALS: BP 109/59; PULSE 52; RESP 18; TEMP 37; O2SAT 94
[2023-05-07] MEDS: Omeprazole 40 MG CAPSULE.DR PO (05:49)
[2023-05-07] MEDS: Fluticasone Propionate 100 MCG BLST.W.DEV 1 PUFF INHALE (07:41)
[2023-05-07 07:43] VITALS: BP 118/67; PULSE 49; RESP 16; RESP 20; TEMP 36.3; O2SAT 94; O2SAT 95
--- NOTE | 2023-05-07 08:00 | ECG_ITS ---
Test Reason : SOTOLOL PROTOCOL Blood Pressure : / mmHG Vent. Rate : 047 BPM Atrial Rate : 047 BPM P-R Int : 190 ms QRS Dur : 114 ms QT Int : 494 ms P-R-T Axes : 059 047 043 degrees QTc Int : 437 ms Sinus bradycardia Possible Left atrial enlargement Borderline ECG When compared with ECG of 07-MAY-2023 00:17, No significant change was found Referred By: David Saavedra Electronically Signed By:Steven Ch
--- NOTE | 2023-05-07 09:00 | P.DS_ITS ---
DS: Providers Provider Date of Service: 05/07/23 Date of admission: 05/04/23 09:03 Primary care physician: Destiny Trinidad MD Consults: 05/03/23 19:05 Consult to Cardiology Routine Consulting Provider: [facility] Reason for consultation: cardiogenic syncope Has provider been notified: Yes DS: Diagnosis Discharge Diagnosis (1) Paroxysmal A-fib: Status: Inactive DS: Summary Hospital Course Hospital Course: Chief Complaint: Syncope This is a 57-year-old male with pertinent history of atrial fibrillation on anticoagulation, SHAYLA on CPAP, essential hypertension, mood disorder, asthma, BPH who presents to the emergency department for evaluation of syncope and palpitations.? Patient states he was recently on a Holter monitor found to be in AFib.? His resource conservationist, Dr. Ch discussed admitting him and trying sotalol load.? Patient states that disc was discussed 3 days prior to presentation.? He presents today as he had 2 episodes of syncope over the last 2 days.? Both ep isodes were when he was trying to get up, he got dizzy, lightheaded and passed out.? Patient also reports palpitations prior to presentation.? He denies fever, chills, chest discomfort, shortness of breath, abdominal pain, changes in urinary or bowel habits.? States that he is compliant with his medications. In the emergency department, cardiology was consulted who requested admission for possible sotalol load. Hospital course: He presented with syncope and chest pain, he was in AFIB, ACS work up was negative, he has been on multaq to maintain on sinus but outside monitoring showed that he had been in persitent AFIB and plan was to cardiovert him and so once admitted cardiology advised that Multaq and Metoprolol be stopped and to be initiated on Sotalol per protocol, QTcs have been normal, presently at 437. He is now in sinus rhythm. Plan is to stop Multaq, and Metoprolol and continue cardizem and Sotalol Time Spent with Patient Time attestation: Total time managing care of this patient today ____ minutes. Discharge coordination time: Greater than 30 minutes Quality: Safe Use of Opioids Does Pt have an Active Cancer Diagnosis on the Problem List?: No Quality: Stroke Does the patient have a stroke diagnosis?: No Physical Exam Vital Signs: Vital Signs: Last Vital Signs Temp 97.3 F 07/21/23 07:43 Pulse 49 L 05/07/23 07:43 Resp 16 05/07/23 07:43 BP 118/67 05/07/23 07:43 Pulse Ox 95 05/07/23 07:43 O2 Del Method Room Air 05/07/23 07:43 BMI result Body Mass Index 61.0 Const: Other: General: AO X 3, no acute distress Resp: CTA bilateral CVS: S1,S2,RRR GI: +BS, NT, no distention Skin: No rash Neuro: motor grossly intact Psych: appropriate affect Discharge Plan Discharge Anticipated Discharge Date/Time: 05/07/23 08:56 Patient Disposition: Home, Self-Care Discharge Diagnosis: AFIB with RVR Referrals: Destiny Trinidad MD [Primary Care Provider] - 1 Week Discharge Medications: Continued colesevelam 625 mg tablet 1,250 mg PO BID Qty: 360 0RF ferrous sulfate 325 mg (65 mg iron) tablet 1 tab PO DAILY multivitamin [Daily-Brent] Tablet 1 tab PO DAILY Flovent Diskus 50 mcg/actuation blister with device 1 inh INHALATION BID oxybutynin chloride 15 mg tablet extended release 24hr 15 mg PO DAILY Rx Instructions: total of 20 mg / day diphenoxylate-atropine 2.5-0.025 mg/5 mL liquid 5 ml PO QID PRN (Reason: Diarrhea) oxybutynin chloride 5 mg tablet extended release 24hr 5 mg PO DAILY Rx Instructions: total of 20 mg /day oxycodone 5 mg tablet 5 mg PO Q6H PRN (Reason: Pain (Scale Score 4-6)) sertraline 50 mg tablet 50 mg PO DAILY omeprazole 40 mg capsule,delayed release(DR/EC) 40 mg PO DAILY@0630 montelukast 10 mg tablet 10 mg PO BEDTIME albuterol sulfate 90 mcg/actuation HFA aerosol inhaler 2 inh inhalation Q6H PRN (Reason: Shortness Of Breath) calcium carbonate-vitamin D3 600 mg-10 mcg (400 unit) capsule 1 cap PO DAILY apixaban 5 mg tablet 5 mg PO BID lisinopril 5 mg tablet 5 mg PO DAILY gabapentin 300 mg capsule 300 mg PO TID Discontinued metoprolol succinate [Toprol XL] 100 mg tablet extended release 24 hr 100 mg PO DAILY Qty: 90 3RF diltiazem HCl [Cardizem CD] 120 mg capsule,extended release 24hr 120 mg PO DAILY Qty: 90 2RF Protocol: Hold for SBP/HR < HOLD for SBP < : 90 HOLD for HR < : 60 Multaq 400 mg tablet 400 mg PO BID Qty: 60 3RF Rx Instructions: must administer with a meal/food No Action budesonide 3 mg capsule,delayed,extend.release 9 mg PO DAILY Qty: 270 1RF sotalol 80 mg tablet 80 mg PO BID 90 Days Qty: 180 3RF simethicone [Gas Relief (simethicone)] 180 mg capsule 180 mg PO BID Qty: 90 2RF Rx Instructions: after meals Discharge Orders: Discharge Order (Routine); Ordered 05/07/23 Ordered By: David Saavedra Diet: Advance to usual diet Activity on Discharge: As tolerated Stand Alone Forms: Patient Portal Discharge page Care Plan Goals: maintain sinus rythm and prevent afib with rvr Health Concerns: syncopes, afib with rvr Plan of Treatment: Stop Metoprolol and Multaq. Take Sotalol as recommended, follow up with your Doctor and resource conservationist Dr. Ch Assessment: as above Patient Instructions: A-fib (Atrial Fibrillation) (DC), Syncope (DC) Discharge Date/Time: 05/07/23 17:32
[2023-05-07] MEDS: 0.9 % Sodium Chloride Flush 3 ML SYRINGE IVFLUSH ×2 (09:04→16:11)
[2023-05-07] MEDS: Calcium + Vitamin D 250 MG TABLET PO (09:04)
[2023-05-07] MEDS: dilTIAZem HCL CD 120 MG CAP.ER.DEG PO (09:04)
[2023-05-07] MEDS: Multivitamin TABLET 1 TAB PO (09:04)
[2023-05-07] MEDS: Spironolactone 25 MG TABLET PO (09:05)
[2023-05-07] MEDS: lisinopriL 5 MG TABLET PO (09:05)
[2023-05-07] MEDS: Apixaban 5 MG TABLET PO (09:05)
[2023-05-07] MEDS: Ferrous Sulfate 324 MG TABLET.DR PO (09:05)
[2023-05-07] MEDS: Sertraline HCL 50 MG TABLET PO (09:05)
[2023-05-07] MEDS: Gabapentin 300 MG CAPSULE PO ×2 (09:05→16:11)
[2023-05-07] MEDS: oxyBUTYnin chloride ER 5 MG TAB.ER.24 20 MG PO (09:05)
[2023-05-07] MEDS: Sotalol HCL 80 MG TABLET PO (09:05)
[2023-05-07] MEDS: Cholestyramine (With Sugar) 4 GM POWD.PACK 1 GM PO (09:06)
[2023-05-07 10:21] LABS: Anion Gap 11 (12-20); Blood Urea Nitrogen 30 mg/dL (9-16); Calcium 9.4 mg/dL (8.4-10.2); Carbon Dioxide 24 mmol/L (22-29); Chloride 106 mmol/L (96-108); Creatinine Clr Calc Pharmacy 142.1; Estimated Glomerular Filt Rate > 60; Glucose Random 110 mg/dL (60-115); Potassium 3.7 mmol/L (3.3-5.1); Sodium 137 mmol/L (135-145)
--- NOTE | 2023-05-07 11:37 | MHC.CM.PN ---
Per ROUNDS discussion, Patient is medically cleared for dc to home today/self care, pending Cardiology. Last IMM addressed on 05/05/2023.
--- NOTE | 2023-05-07 11:48 | PC.NURSE ---
Per Sotalol protocol treatment. EKG obtained at 7:33am. Pre-dose QTC 437ms. Follow-up EKG obtained at 12:17pm after Sotalol administration, QTC 439ms.
[2023-05-07 11:52] VITALS: BP 127/72; PULSE 53; RESP 20; TEMP 36.1; O2SAT 94
--- NOTE | 2023-05-07 12:39 | PM.PNCARD ---
Subjective Subjective Date of Service: 05/07/23 Interval history: Seen and examined at bedside. In sinus rhythm since last evening. Physical Exam Vital Signs: Last Vital Signs Temp 97.0 F 05/07/23 11:52 Pulse 53 05/07/23 11:52 Resp 20 05/07/23 11:52 BP 127/72 05/07/23 11:52 Pulse Ox 94 05/07/23 11:52 O2 Del Method Room Air 05/07/23 11:52 BMI result Body Mass Index 61.0 GENERAL APPEARANCE: in no acute distress, morbidly obese. NECK: no carotid bruit, no jugular venous distention. SKIN: Chronic lymphedema bilateral lower extremities. HEART: no murmurs, irregular rate and rhythm. LUNGS: clear to auscultation bilaterally. ABDOMEN: soft, nontender. EXTREMITIES: Chronic lymphedema. PERIPHERAL PULSES: equal. NEUROLOGIC: No gross deficits, AAO X 3 Objective Labs and Meds 05/04/23 07:10 05/07/23 09:41 Lab results: Laboratory Results - last 24 hr 05/07/23 09:41 Sodium 137 Potassium 3.7 Chloride 106 Carbon Dioxide 24 Anion Gap 11 L BUN 30 H Creatinine 0.94 Estim Creat Clear Calc 142.1 Estimated GFR > 60 Random Glucose 110 Calcium 9.4 Progress Note: A&P Assessment and plan (1) Paroxysmal A-fib: Status: Acute (2) Atrial flutter: Status: Acute Plan 57 male with PAF. Few ECGs appear to look like flutter vs coarse Afib. Reverted to sinus with sotalol. c/w Sotalol 80 BID. DC Multaq and metoprolol on discharge. If HR with ambulation is fine and he has no symptoms then continue cardizem otherwise DC. We will arrange stress test as outpatient. Time Spent With Patient Time: Total time managing care of this patient today ____ minutes. Progress Note: Quality Stroke Does the patient have a stroke diagnosis?: No Procedures Date of Service Date of Service: 05/07/23
[2023-05-07 15:57] VITALS: BP 135/64; PULSE 89; RESP 18; TEMP 37; O2SAT 98
== END 2023-05-07 17:32 | disposition home or self-care (01) | DRG 309 ==
LOC: HO.ED 19:20 → HO.EDOVER 21:47 → HO.IMC 05-04 14:20
PROVIDERS: Internal Medicine Cardiovascular Disease; Physician Assistant Medical; Admitting Provider Student in an Organized Health Care Education/Training Program; Emergency Provider Student in an Organized Health Care Education/Training Program; PCP Family Medicine; Visit Provider Internal Medicine
DX: I48.0 Paroxysmal atrial fibrillation (principal); Z68.44 Body mass index [BMI] 60.0-69.9, adult; E66.01 Morbid (severe) obesity due to excess calories; G47.33 Obstructive sleep apnea (adult) (pediatric); I95.1 Orthostatic hypotension; E87.6 Hypokalemia; J45.20 Mild intermittent asthma, uncomplicated; F32.A Depression, unspecified; Z98.84 Bariatric surgery status; Z71.3 Dietary counseling and surveillance; Z79.01 Long term (current) use of anticoagulants; Z79.899 Other long term (current) drug therapy
CPT/HCPCS: 36415; 70450; 71046; 80048; 80076; 82550; 83735; 84484; 85025; 85379; 85610; 85730; 93005; 93306; 94640; 99285; J3475; Q9957

== ENCOUNTER → 2023-05-03 11:16 | Outpatient (BNV) | payer MEDICARE, MEDICAID, SELFPAY | PROVIDERS: PCP Family Medicine; Visit Provider Internal Medicine Cardiovascular Disease | DX: I49.1 Atrial premature depolarization (principal) | CPT/HCPCS: 93010 ==

== ENCOUNTER → 2023-05-03 17:21 | Outpatient (BNV) | payer MEDICARE, MEDICAID, SELFPAY | PROVIDERS: Emergency Provider Student in an Organized Health Care Education/Training Program; PCP Family Medicine; Visit Provider Student in an Organized Health Care Education/Training Program | DX: I48.0 Paroxysmal atrial fibrillation (principal) | CPT/HCPCS: 99222; 99232; 99239 ==

== ENCOUNTER 2023-05-04 09:03 | Outpatient (BNV) | payer MEDICARE, MEDICAID, SELFPAY | END 2023-05-07 08:00 | PROVIDERS: Admitting Provider Student in an Organized Health Care Education/Training Program; Emergency Provider Student in an Organized Health Care Education/Training Program; PCP Family Medicine; Visit Provider Internal Medicine Cardiovascular Disease | DX: I44.0 Atrioventricular block, first degree (principal); R00.1 Bradycardia, unspecified | CPT/HCPCS: 93010 ==

== ENCOUNTER 2023-05-04 09:03 | Outpatient (BNV) | payer MEDICARE, MEDICAID, SELFPAY | END 2023-05-06 09:07 | PROVIDERS: Admitting Provider Student in an Organized Health Care Education/Training Program; Emergency Provider Student in an Organized Health Care Education/Training Program; PCP Family Medicine; Visit Provider Internal Medicine Cardiovascular Disease | DX: R00.1 Bradycardia, unspecified (principal); R94.31 Abnormal electrocardiogram [ECG] [EKG] | CPT/HCPCS: 93010 ==

== ENCOUNTER 2023-05-04 09:03 | Outpatient (BNV) | payer MEDICARE, MEDICAID, SELFPAY | END 2023-05-05 07:00 | PROVIDERS: Admitting Provider Student in an Organized Health Care Education/Training Program; Emergency Provider Student in an Organized Health Care Education/Training Program; PCP Family Medicine; Visit Provider Internal Medicine Cardiovascular Disease | DX: I48.92 Unspecified atrial flutter (principal); I48.91 Unspecified atrial fibrillation; R94.31 Abnormal electrocardiogram [ECG] [EKG] | CPT/HCPCS: 93010; 93306 ==

== ENCOUNTER → 2023-05-04 09:03 | Outpatient (BNV) | payer MEDICARE, MEDICAID, SELFPAY | PROVIDERS: Admitting Provider Student in an Organized Health Care Education/Training Program; Emergency Provider Student in an Organized Health Care Education/Training Program; PCP Family Medicine; Visit Provider Internal Medicine Cardiovascular Disease | DX: I48.0 Paroxysmal atrial fibrillation (principal); R55 Syncope and collapse; I10 Essential (primary) hypertension; R07.9 Chest pain, unspecified | CPT/HCPCS: 93010; 99223; 99232; 99233 ==

== ENCOUNTER 2023-06-28 13:19 | Outpatient (AMB) | payer MEDICARE, MEDICAID, SELFPAY ==
--- NOTE | 2023-06-28 13:43 | MHC.OFFVIS ---
Intake Vital Signs 06/28/23 13:45 Height 5 ft 9 in Weight 398 lb 9.532 oz BMI 58.9 BP 136/90 H Blood Pressure Location Lt brachial Position Sitting Pulse 68 Pulse Source Monitor Intake Visit Reasons: [facility] [place] follow up Intake Note: [facility] [place] follow up with EKG. Casing In Line Setter Required: No Accompanied by: Self / Same As Patient Allergies cefaclor [From Ceclor] Allergy (Severe, Verified 06/28/23 13:47) hives epanolol Allergy (Severe, Verified 06/28/23 13:47) hives misoprostol Allergy (Severe, Verified 06/28/23 13:47) rash NSAIDS (Non-Steroidal Anti-Inflamma Allergy (Severe, Verified 06/28/23 13:47) GI upset Penicillins Allergy (Severe, Verified 06/28/23 13:47) hives, rash, itching Sulfa (Sulfonamide Antibiotics) Allergy (Severe, Verified 06/28/23 13:47) Hives Cephalosporins Allergy (Intermediate, Verified 06/28/23 13:47) hives amoxicillin Allergy (Mild, Verified 06/28/23 13:47) rash vancomycin Allergy (Mild, Verified 06/28/23 13:47) itching clindamycin Adverse Reaction (Intermediate, Verified 06/28/23 13:47) Rash Medication List - Last Reconciled 06/28/23 by Steven Ch MD albuterol sulfate 90 mcg/actuation 2 inhalations inhalation Q6H PRN apixaban 5 mg PO BID budesonide ER 9 mg (3 x 3 mg) PO DAILY calcium carbonate-vitamin D3 600 mg-10 mcg (400 unit) 1 cap PO DAILY colesevelam 1,250 mg (2 x 625 mg) PO BID diphenoxylate-atropine 2.5-0.025 mg/5 mL 5 mL PO QID PRN ferrous sulfate 1 tab PO DAILY fluticasone propionate 50 mcg/actuation (Flovent Diskus) 1 inh inhalation BID gabapentin 300 mg PO TID lisinopril 5 mg PO DAILY montelukast 10 mg PO BEDTIME multivitamin (Daily-Brent tablet) 1 tab PO DAILY omeprazole 40 mg PO DAILY@0630 oxybutynin chloride ER 15 mg PO DAILY oxybutynin chloride ER 5 mg PO DAILY oxycodone 5 mg PO Q6H PRN sertraline 50 mg PO DAILY simethicone (Gas Relief (simethicone)) 180 mg PO BID sotalol 80 mg PO BID 90 days HPI HPI Comments History of Present Illness Details 57-year-old gentleman who was referred to us for episodes of paroxysmal atrial fibrillation. He has background history of morbid obesity status post bariatric surgery, DVT and pulmonary embolism with an IVC filter, hypertension and chronic lymphedema. It appears in 2019 he had palpitations which brought him to the emergency department and was diagnosed with atrial fibrillation. He was given metoprolol in the ER he reverted back to sinus rhythm. His Toprol-XL at that stage was increased from 50-75 mg and eventually to 100 mg. He was also started on lisinopril 5 mg for hypertension. He ran out of his medications a month ago and has not been taking lisinopril and Toprol. He is on Coumadin because of his previous DVT/pulmonary embolism and since he developed atrial fibrillation and this was continued. He continues to have morbid obesity and significant functional limitations due to arthritis and back issues. He gets short of breath when he exercises. He is denying any palpitations. He checks his INR at home and his Coumadin dose is adjusted by Dr. Trinidad. He had an echocardiogram in 2016 which showed normal left ventricular systolic function but there was septal flattening with RV pressure volume overload. Pulmonary artery systolic pressures were documented at 35-40 mm Hg at that time. He also had a dobutamine stress echo in April 2018 which did not show any evidence of ischemia or old CO. Previous electrical drafter was Dr. Marcos Aguilar with [facility]. We repeated his echocardiogram which showed normal biventricular function with mildly dilated ascending aorta. He had moderate pulmonary hypertension. He is returning for follow-up. He had IVC filter removed in [facility] and had IVC stenting done by Dr. Gaffney. He is saying since then his lower extremity edema has improved significantly but recently started noticing right foot edema and will be going back for repeat venogram in April. His blood pressure is elevated and he is taking lisinopril 10 mg once a day. He also has been experiencing some chest discomfort off and on. This happens at nighttime when he is laying down but also happens when he is walking on the treadmill. He is walking approximately 5-6 minutes on treadmill every day as part of weight loss program. He is status post bariatric surgery x 2. He underwent stress testing which did not show any perfusion defect. He also had Holter monitoring which showed episodes of atrial fibrillation. He does not feel any symptoms during atrial fibrillation. Otherwise doing well. Denying any significant chest discomfort shortness of breath. He was started on Multaq. During his follow-up in September 2022 he was in sinus rhythm. Subsequent to that he was seen in office in 2022 and his EKG in the office showing atrial flutter with variable block. Discussing with him he has no symptoms. In particular no palpitations, chest discomfort or worsening shortness of breath. He has been taking his Eliquis and Multaq regularly and he has not missed Eliquis in the last 4 weeks. 06/28/23: He is returning for follow-up. On last visit he was noticed to be in atrial fibrillation and was admitted to the hospital underwent cardioversion after stopping Multaq and was started on sotalol. He has been tolerating sotalol well. EKG in the office is showing sinus rhythm. No palpitations. He has dyspnea on exertion which is chronic due to morbid obesity. [facility] Medical History Asthma Bronchial asthma Depression Dyspnea Family history of stent GERD (gastroesophageal reflux disease) History of kidney stones Hyperlipidemia Lumbar disc disease Lumbar disc prolapse with root compression Lymphedema Migration of vascular stent Morbid obesity Neurogenic bladder OA (osteoarthritis) On anticoagulant therapy On beta paty at home SHAYLA on CPAP PAF (paroxysmal atrial fibrillation) Pulmonary embolus Restrictive lung disease Uncomplicated opioid dependence Venous stasis Surgical History S/P IVC filter S/P appendectomy Hx of colonoscopy History of esophagogastroduodenoscopy (EGD) Hx of eye surgery Hx of gastric bypass Family History Mother Diabetes Father Brain cancer Sister Diabetes Sister Diabetes Sister Diabetes Brother Blind Brother No problems noted. Brother No problems noted. Brother No problems noted. Brother No problems noted. Daughter No problems noted. Daughter Mental health disorder Son Mental health disorder Son No problems noted. Son No problems noted. Social History Household Members: Children Household Members Other:: - 5 kids Housing: House Are you a primary wound care coordinator to a significant other at home: No Do you presently have visiting nurse or other home services: Yes (DEPARTMENT OPERATIONS MANAGER that visits every 3 months) Alcohol intake: unknown Patient Tobacco Use Status: Never used Tobacco Second Hand Smoke Exposure: No Advance Directives Date on File: 08/14/21 service: No Current occupational status: disabled Current occupation: rt handed Review of Systems Const Denies weakness ENT Denies dizziness Card Denies chest pain, Denies chest pain with activity, Denies syncope, Denies rapid heart rate, Denies pedal edema, Denies edema, Denies leg edema, Denies lightheadedness, Denies palpitations, Denies dyspnea, Denies dyspnea on exertion and Denies orthopnea Resp Denies cough, Denies dyspnea and Denies dyspnea on exertion GI Denies hematochezia and Denies change in stool character Musc Denies abnormal gait, Denies muscle cramps, Denies muscle weakness, Denies numbness, Denies radiating pain into limb and Denies tingling Neuro Denies abnormal gait, Denies dizziness, Denies syncope, Denies numbness, Denies tingling and Denies weakness Endo Denies palpitations Physical Exam Vital Signs: BMI result Body Mass Index 58.9 GENERAL APPEARANCE: in no acute distress, morbidly obese. NECK: no carotid bruit, no jugular venous distention. SKIN: Chronic lymphedema bilateral lower extremities. HEART: no murmurs, regular rate and rhythm. LUNGS: clear to auscultation bilaterally. ABDOMEN: soft, nontender. EXTREMITIES: Chronic lymphedema. PERIPHERAL PULSES: equal. NEUROLOGIC: No gross deficits, AAO X 3 Office Procedures EKG Details: Sinus rhythm 68 beats per minute left atrial enlargement, QTC 455 milliseconds. [id number], Complete Assessment & Plan Assessment & Plan (1) PAF (paroxysmal atrial fibrillation): Comment: Eliquis and Sotalol Code(s): I48.0 - Paroxysmal atrial fibrillation Plan 49-year-old gentleman who is here for follow-up. He has background of paroxysmal atrial fibrillation. He underwent cardioversion and has been started on sotalol which she has been tolerating well. QTC is normal. He is on apixaban for anticoagulation. He has morbid obesity and bronchial asthma which is the likely cause for his shortness of breath. He had coronary CTA performed at [facility] which did not show any significant disease. Some distal branches could not be visualized well but overall no atherosclerotic disease involving proximal vessels and main branches. Clinically doing well with the current management plan. Should continue same medications for now. With sotalol drug interactions are important as mixing certain medication with sotalol can cause QT prolongation. Interaction should be checked every time any medications added. Thank you for allowing me to participate in the care of your patient. Please feel free to contact me if you have any questions. Coding Level of Care Code Est Pt Level 4 (63010) Diagnoses PAF (paroxysmal atrial fibrillation) I48.0 CPT Codes EKG - CPT: 57917-[id number], Complete ([id number])
[2023-06-28 13:45] VITALS: BP 136/90; PULSE 68; BMI 58.9
== END 2023-06-28 14:08 | disposition home or self-care (01) ==
PROVIDERS: PCP Family Medicine; Referring Provider Family Medicine; Visit Provider Internal Medicine Cardiovascular Disease
DX: I48.0 Paroxysmal atrial fibrillation (principal)
CPT/HCPCS: 93010; 99214

== ENCOUNTER → 2023-06-28 13:19 | Outpatient (BNVA) | payer MEDICARE, MEDICAID, SELFPAY | PROVIDERS: PCP Family Medicine; Referring Provider Family Medicine; Visit Provider Internal Medicine Cardiovascular Disease | DX: I48.0 Paroxysmal atrial fibrillation (principal); Z79.01 Long term (current) use of anticoagulants; Z79.899 Other long term (current) drug therapy | CPT/HCPCS: 93005; 99212 ==

== ENCOUNTER 2023-07-06 09:57 | Outpatient (REF) | payer MEDICARE, MEDICAID, SELFPAY ==
[2023-07-06 15:50] LABS: Adenovirus F 40/41 Not Detected (Not Detect.); Astrovirus Not Detected (Not Detect.); Campylobacter Not Detected (Not Detect.); Cryptosporidium Not Detected (Not Detect.); Cyclospora cayetanensis Not Detected (Not Detect.); E. coli EAEC Not Detected (Not Detect.); E. coli EPEC Not Detected (Not Detect.); E. coli ETEC Not Detected (Not Detect.); E. coli STEC Not Detected (Not Detect.); Entamoeba histolytica Not Detected (Not Detect.); Giardia lamblia Not Detected (Not Detect.); Norovirus GI/GII Not Detected (Not Detect.); Plesiomonas shigelloides Not Detected (Not Detect.); Rotavirus A Not Detected (Not Detect.); Salmonella Not Detected (Not Detect.); Sapovirus Not Detected (Not Detect.); Shigella sp./EIEC Not Detected (Not Detect.); Vibrio Not Detected (Not Detect.); Vibrio Cholerae Not Detected (Not Detect.); Yersinia enterocolitica Not Detected (Not Detect.)
[2023-07-11 01:09] LABS: Fecal Fat Qualitative Normal (Normal)
[2023-07-12 18:53] LABS: Pancreatic Elastase-1 >500 mcg/g
== END 2023-07-06 09:58 | disposition home or self-care (01) ==
LOC: HO.HMGCLNP 09:57
PROVIDERS: PCP Family Medicine; Visit Provider Internal Medicine Gastroenterology
DX: R19.7 Diarrhea, unspecified (principal)
CPT/HCPCS: 82656; 82705; 87507

== ENCOUNTER 2023-08-05 08:07 | Outpatient (REF) | payer MEDICARE, MEDICAID, SELFPAY ==
--- NOTE | ~2023-08-05 | XR_ITS ---
EXAMINATION: XR SHOULDER, LEFT CLINICAL INFORMATION: Left shoulder pain. COMPARISON: None available. TECHNIQUE: Neutral AP and scapular Y views, 2 views of the left shoulder. FINDINGS: Advanced degenerative changes in the acromioclavicular joint with loss of the joint space and hypertrophic change. Mild spurring along the inferior aspect of the acromion. No abnormal soft tissue calcifications identified adjacent to the humeral head. Glenohumeral alignment preserved with mild hypertrophic change Scalloping along the lateral margin of the scapula. Ill-defined sclerotic lesion in the proximal shaft of the left femur. XR/XR shoulder LT min 2V IMPRESSION: 1. Advanced degenerative changes in the left acromioclavicular joint. 2. Scalloping along the lateral margin of the scapula. 3. Ill-defined sclerotic lesion in the proximal shaft of the left femur. Orthopedic consultation as well as possible CT scan or MRI recommended for further evaluation.
== END 2023-08-05 08:08 | disposition home or self-care (01) ==
LOC: HO.HOSX 08:07
PROVIDERS: Visit Provider Orthopaedic Surgery
DX: M25.512 Pain in left shoulder (principal)
CPT/HCPCS: 73030; 99202

== ENCOUNTER 2023-08-05 10:50 | Outpatient (AMB) | payer MEDICARE, MEDICAID, SELFPAY ==
--- NOTE | 2023-08-05 11:14 | A.OFFVIS_ITS ---
Intake Vital Signs 08/05/23 11:15 Height 5 ft 9 in Weight 398 lb BMI 58.8 Intake Visit Reasons: New Prob- Left shoulder pain Intake Note: Jan 57 yr old male presents today with complaints of progressively worsening left shoulder pain and stiffness. The patient describes his pain as severe in nature. His pain has gotten worse over the last year in spite of continued non operative treatments. He has done physical therapy for 12 weeks over the last 6 months which aggravated his pain. He has also had multiple injections. The most recent injection gave him minimal relief. He has tried Tylenol and anti- inflammatory medicines which gave him only mild relief. The patient states that he has difficulty lifting his left hand above shoulder height. Allergies cefaclor [From Ceclor] Allergy (Severe, Verified 08/05/23 11:18) hives epanolol Allergy (Severe, Verified 08/05/23 11:18) hives misoprostol Allergy (Severe, Verified 08/05/23 11:18) rash NSAIDS (Non-Steroidal Anti-Inflamma Allergy (Severe, Verified 08/05/23 11:18) GI upset Penicillins Allergy (Severe, Verified 08/05/23 11:18) hives, rash, itching Sulfa (Sulfonamide Antibiotics) Allergy (Severe, Verified 08/05/23 11:18) Hives Cephalosporins Allergy (Intermediate, Verified 08/05/23 11:18) hives amoxicillin Allergy (Mild, Verified 08/05/23 11:18) rash vancomycin Allergy (Mild, Verified 08/05/23 11:18) itching clindamycin Adverse Reaction (Intermediate, Verified 08/05/23 11:18) Rash [facility] Medical History Asthma Bronchial asthma Depression Dyspnea Family history of stent GERD (gastroesophageal reflux disease) History of kidney stones Hyperlipidemia Lumbar disc disease Lumbar disc prolapse with root compression Lymphedema Migration of vascular stent Morbid obesity Neurogenic bladder OA (osteoarthritis) On anticoagulant therapy On beta paty at home SHAYLA on CPAP PAF (paroxysmal atrial fibrillation) Pulmonary embolus Restrictive lung disease Uncomplicated opioid dependence Venous stasis Surgical History S/P IVC filter S/P appendectomy Hx of colonoscopy History of esophagogastroduodenoscopy (EGD) Hx of eye surgery Hx of gastric bypass Family History Mother Diabetes Father Brain cancer Sister Diabetes Sister Diabetes Sister Diabetes Brother Blind Brother No problems noted. Brother No problems noted. Brother No problems noted. Brother No problems noted. Daughter No problems noted. Daughter Mental health disorder Son Mental health disorder Son No problems noted. Son No problems noted. 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 MINER OPERATOR that visits every 3 months) Alcohol intake: unknown Patient Tobacco Use Status: Never used Tobacco Second Hand Smoke Exposure: No Advance Directives Date on File: 08/14/21 service: No Current occupational status: disabled Current occupation: rt handed Physical Exam Vital Signs: BMI result Body Mass Index 58.8 Const Other: Well-nourished well-developed very friendly male awake alert and oriented x3 in no acute distress Extrem Other: Bilateral upper extremity examination shows good capillary refill, no skin lesions noted, normal sensation light touch Left shoulder examination shows decreased active and passive range of motion when compared to his right shoulder, 4+ out of 5 strength with supraspinatus testing, positive impingement signs, tenderness over his acromioclavicular joint, no instability Results Reviewed Results Reviewed: X-rays of the patient's left shoulder show severe acromioclavicular joint narrowing, a type 3 acromion, no acute bony abnormalities Assessment & Plan Assessment & Plan (1) Left shoulder pain: Code(s): M25.512 - Pain in left shoulder Plan: Mr. Villarreal presents with progressively worsening left shoulder pain and stiffness due to impingement syndrome, acromioclavicular joint arthritis and adhesive capsulitis. I had a lengthy discussion with the patient regarding the treatment options. At this point he has failed continued non operative treatments. The risks and benefits of left shoulder surgery were discussed at length with the patient. The patient is interested in proceeding with surgery. The surgery would involve left shoulder diagnostic arthroscopy with distal clavicle excision, acromioplasty, anterior capsular release and manipulation under anesthesia. I spoke with the operating room staff here at [facility]. I was told that the weight limit for our beach chair apparatus is 350 lb. The patient if the currently weighs more than this. I will see if there is a shoulder specialist here in [facility] does this type of surgery in the lateral position instead. Otherwise the patient will follow up with me once his weight is down to approximately 350 lb. He will continue with his range of motion exercises in meantime. Feel free to call me at any time should questions regarding his orthopedic management arise. I spent 22 minutes in reviewing the patient's records and imaging studies, seeing the patient and documenting in the medical record. Orders: Orders XR shoulder LT min 2V Today M25.512 - Pain in left shoulder Coding Level of Care Code New Pt Level 2 (19650) Diagnoses Left shoulder pain M25.512
[2023-08-05 11:15] VITALS: BMI 58.8
== END 2023-08-05 11:36 | disposition home or self-care (01) ==
PROVIDERS: PCP Family Medicine; Visit Provider Orthopaedic Surgery
DX: M25.512 Pain in left shoulder (principal)
CPT/HCPCS: 99202

== ENCOUNTER 2023-08-20 09:37 | Outpatient (REF) | payer MEDICARE, MEDICAID, SELFPAY ==
--- NOTE | ~2023-08-20 | XR_ITS ---
EXAMINATION: XR ABDOMEN KUB CLINICAL INDICATION: Diarrhea COMPARISON: None available. TECHNIQUE: AP view of the abdomen. FINDINGS: There is scattered gas and stool seen in colon without distention. No organomegaly. There are scattered phleboliths in the pelvis. There is an IVC stent in place. No gross bony abnormality seen. XR/XR KUB IMPRESSION: Mild constipation. No acute process seen.
== END 2023-08-20 09:38 | disposition home or self-care (01) ==
LOC: HO.HMGCX 09:37
PROVIDERS: PCP Family Medicine; Visit Provider Internal Medicine Gastroenterology
DX: R19.7 Diarrhea, unspecified (principal)
CPT/HCPCS: 74018

== ENCOUNTER 2023-08-26 13:59 | Outpatient (REF) | payer MEDICARE, MEDICAID, SELFPAY ==
--- NOTE | ~2023-08-26 | XR_ITS ---
EXAMINATION: XR ABDOMEN KUB CLINICAL INDICATION: Diarrhea. COMPARISON: KUB dated 08/20/2023; portions of CT enterography dated 11/17/2022. TECHNIQUE: AP views of the abdomen and pelvis are submitted. FINDINGS: The bowel gas pattern is normal with no evidence of ileus or obstruction. Gas is identified to level of the rectum. No unusual soft tissue calcifications are noted. An inferior vena cava stent is redemonstrated. There are pelvic phleboliths. The bones are unremarkable. XR/XR KUB IMPRESSION: Unremarkable examination.
== END 2023-08-26 14:00 | disposition home or self-care (01) ==
LOC: HO.HMGCX 13:59
PROVIDERS: PCP Family Medicine; Visit Provider Internal Medicine Gastroenterology
DX: R19.7 Diarrhea, unspecified (principal)
CPT/HCPCS: 74018

== ENCOUNTER 2023-11-12 09:12 | Outpatient (AMB) | payer MEDICARE, MEDICAID, SELFPAY ==
--- NOTE | 2023-11-12 09:15 | MHC.OFFVIS ---
Intake Vital Signs 11/12/23 09:21 Height 5 ft 9 in Weight 405 lb 10.409 oz BMI 59.9 BP 187/102 H Blood Pressure Location Rt brachial Position Sitting Pulse 79 Intake Visit Reasons: multiple issues ok per Dr. Lux Intake Note: Jan presents in the office as a follow up for Jose J. CC: He states that he is having diarrhea once in a while. This week was fine but last week it was terrible. No pains in the stomach and denies any bloody stools. He is having a cataract surgery on left eye 12/09 and has the right /. In december he is also having spinal surgery. 12/29 Allergies cefaclor [From Ceclor] Allergy (Severe, Verified 11/12/23 09:22) hives epanolol Allergy (Severe, Verified 11/12/23 09:22) hives misoprostol Allergy (Severe, Verified 11/12/23 09:22) rash NSAIDS (Non-Steroidal Anti-Inflamma Allergy (Severe, Verified 11/12/23 09:22) GI upset Penicillins Allergy (Severe, Verified 11/12/23 09:22) hives, rash, itching Sulfa (Sulfonamide Antibiotics) Allergy (Severe, Verified 11/12/23 09:22) Hives Cephalosporins Allergy (Intermediate, Verified 11/12/23 09:22) hives amoxicillin Allergy (Mild, Verified 11/12/23 09:22) rash vancomycin Allergy (Mild, Verified 11/12/23 09:22) itching clindamycin Adverse Reaction (Intermediate, Verified 11/12/23 09:22) Rash HPI multiple issues ok per Dr. Lux HPI Details A 57 y/o male chronic bowel issues- here for f/u he has been having abn bowel habits with variation in bowel habits he has loose stools maybe twice a week stools can smell bad can look oily as well no blood in stool he had allergy tests done and were negative weight has been stable he has eye surgeries and spine surgery coming up refluc controlled with PPI rarely uses oxycodone, few times a month he had been on welchol, simehticone trials. recnetly sent FODMAP diet as well TESTS: colonoscopy: 10/2022-- nml incl biopsies CTe: herniated stomach pouch, degen spine changes, stent -aorta EXAM: GENERAL: The patient is obese, uses walking stick VITAL SIGNS:see workflow HEENT: Nonicteric sclerae, PERRLA, EOMI. Oropharynx clear. Moist mucous membranes. Conjunctivae appear well perfused. No thyroid mass. CHEST: Chest wall is nontender. HEART: Regular rate and rhythm without murmurs. LUNGS: Clear to auscultation bilaterally. ABDOMEN: Soft, positive bowel sounds, nontender, no organomegaly.no flank tenderness SKIN: No rash, no excessive bruising, petechiae, or purpura. NEUROLOGIC: Cranial nerves II-XII intact without motor/sensory deficit. Pscyh: nml affect A/P: 1/ gas, diarrhea, distention, altered bowel habits, could be due to SIBO, CHO intolerance, medication SE, prior gastric bypass, imaging and colonoscopy were negative PLAN: /1 - food diary, ?lactose intol with food diary 2/ SIBO--test 3/ trial of probiotics 4/ ? repeat Abx trial if probiotics dont't help PFSH Medical History Asthma Bronchial asthma Depression Dyspnea Family history of stent GERD (gastroesophageal reflux disease) History of kidney stones Hyperlipidemia Lumbar disc disease Lumbar disc prolapse with root compression Lymphedema Migration of vascular stent Morbid obesity Neurogenic bladder OA (osteoarthritis) On anticoagulant therapy On beta paty at home SHAYLA on CPAP PAF (paroxysmal atrial fibrillation) Pulmonary embolus Restrictive lung disease Uncomplicated opioid dependence Venous stasis Surgical History S/P IVC filter S/P appendectomy Hx of colonoscopy History of esophagogastroduodenoscopy (EGD) Hx of eye surgery Hx of gastric bypass Family History Mother Diabetes Father Brain cancer Sister Diabetes Sister Diabetes Sister Diabetes Brother Blind Brother No problems noted. Brother No problems noted. Brother No problems noted. Brother No problems noted. Daughter No problems noted. Daughter Mental health disorder Son Mental health disorder Son No problems noted. Son No problems noted. 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 that visits every 3 months) Alcohol intake: unknown Comment: uses cane at times- knee gives out Patient Tobacco Use Status: Never used Tobacco Second Hand Smoke Exposure: No Advance Directives Date on File: 08/14/21 service: No Current occupational status: disabled Current occupation: rt handed Physical Exam Vital Signs: Last Vital Signs Pulse 79 11/12/23 09:21 BP 187/102 H 11/12/23 09:21 BMI result Body Mass Index 59.9 Assessment & Plan Assessment & Plan (1) Abnormal bowel habits: Code(s): R19.8 - Other specified symptoms and signs involving the digestive system and abdomen Plan: PLAN: /1 - food diary, ?lactose intol with food diary 2/ SIBO--test 3/ trial of probiotics 4/ ? repeat Abx trial if probiotics dont't help Medications: New Bifidobacterium infantis (Align) 4 mg PO DAILY 90 caps 2RF Coding Level of Care Code Est Pt Level 3 (68603) Diagnoses Abnormal bowel habits R19.8
[2023-11-12 09:21] VITALS: BP 187/102; PULSE 79; BMI 59.9
== END 2023-11-12 10:09 | disposition home or self-care (01) ==
PROVIDERS: PCP Family Medicine; Visit Provider Internal Medicine Gastroenterology
DX: R19.8 Other specified symptoms and signs involving the digestive system and abdomen (principal)
CPT/HCPCS: 99213

== ENCOUNTER → 2023-11-12 09:12 | Outpatient (BNVA) | payer MEDICARE, MEDICAID, SELFPAY | PROVIDERS: PCP Family Medicine; Visit Provider Internal Medicine Gastroenterology | DX: R19.8 Other specified symptoms and signs involving the digestive system and abdomen (principal) | CPT/HCPCS: 99212 ==

== ENCOUNTER 2024-03-09 07:47 | Outpatient (AMB) | payer MEDICARE, MEDICAID, SELFPAY ==
[2024-03-09 08:14] VITALS: BP 130/62; PULSE 75; BMI 60.1
--- NOTE | 2024-03-09 08:14 | A.OFFVIS_ITS ---
Vital Signs 03/09/24 08:14 Height 5 ft 9 in Weight 407 lb BMI 60.1 BP 130/62 Blood Pressure Location Lt brachial Position Sitting Pulse 75 Pulse Source Pulse Oximeter Intake Visit Reasons: [facility] f/up- fluid around the heart Allergies cefaclor [From Ceclor] Allergy (Severe, Verified 03/09/24 08:17) hives epanolol Allergy (Severe, Verified 03/09/24 08:17) hives misoprostol Allergy (Severe, Verified 03/09/24 08:17) rash NSAIDS (Non-Steroidal Anti-Inflamma Allergy (Severe, Verified 03/09/24 08:17) GI upset Penicillins Allergy (Severe, Verified 03/09/24 08:17) hives, rash, itching Sulfa (Sulfonamide Antibiotics) Allergy (Severe, Verified 03/09/24 08:17) Hives Cephalosporins Allergy (Intermediate, Verified 03/09/24 08:17) hives amoxicillin Allergy (Mild, Verified 03/09/24 08:17) rash vancomycin Allergy (Mild, Verified 03/09/24 08:17) itching clindamycin Adverse Reaction (Intermediate, Verified 03/09/24 08:17) Rash Medication List - Last Reconciled 03/09/24 by Thania De La Fuente NP-C albuterol sulfate 90 mcg/actuation 2 inhalations inhalation Q6H PRN apixaban 5 mg PO BID Bifidobacterium infantis (Align) 4 mg PO DAILY budesonide DR-ER 9 mg (3 x 3 mg) PO DAILY calcium carbonate-vitamin D3 600 mg-10 mcg (400 unit) 1 cap PO DAILY colesevelam 1,250 mg (2 x 625 mg) PO BID diphenoxylate-atropine 2.5-0.025 mg/5 mL 5 mL PO QID PRN duloxetine 20 mg PO DAILY ferrous sulfate 1 tab PO DAILY fluticasone propionate 50 mcg/actuation (Flovent Diskus) 1 inh inhalation BID gabapentin 300 mg PO TID montelukast 10 mg PO BEDTIME multivitamin (Daily-Brent tablet) 1 tab PO DAILY nystatin topical BID omeprazole 40 mg PO DAILY@0630 oxybutynin chloride ER 40 mg PO DAILY oxycodone 5 mg PO Q6H PRN rifaximin 550 mg PO TID 2 weeks sertraline 50 mg PO DAILY simethicone (Gas Relief (simethicone)) 125 mg PO BID-QID PRN sotalol 80 mg PO BID 90 days tamsulosin 0.4 mg PO DAILY HPI HPI [facility] f/up- fluid around the heart: Details: Jan is a 58-year-old male with past medical history of morbid obesity, history of gastric bypass, hypertension, DVT/PE status post IVC filter placement then removal, paroxysmal atrial fibrillation suppressed with sotalol, diastolic heart failure who was recently admitted to [facility] with hypoxic respiratory failure and treated for pneumonia and diastolic heart failure. He did develop LINDSAY with diuresis. His last creatinine was 1.7, his normal was 0.7 to 0.9. Today he reports that his breathing is not quite back to his baseline. He does have chronic shortness of breath with activity. Is limited by his morbid ob esity and is only able to walk short distances with a walker. He does have left knee pain with ambulation. No chest discomfort at rest or with activity. No heart palpitations, lightheadedness, presyncope, syncope, falls. No bleeding issues. Wears oxygen at 2 L continually. Sleeps with his head of the bed elevated and does not wear CPAP. He tells me his mask is 25 years old and he has been trying to get in to sleep medicine for the last 2 years. He has seen Dr. Vincent in the past for his asthma. He is sitting in a wheelchair. Family member present. [facility] Medical History Paroxysmal A-fib Atrial flutter PAF (paroxysmal atrial fibrillation) On beta paty at home On anticoagulant therapy SHAYLA on CPAP Bronchial asthma Restrictive lung disease Migration of vascular stent Pulmonary embolus Family history of stent Uncomplicated opioid dependence Lymphedema Lumbar disc disease Venous stasis Hyperlipidemia Neurogenic bladder Dyspnea Lumbar disc prolapse with root compression History of kidney stones GERD (gastroesophageal reflux disease) OA (osteoarthritis) Morbid obesity Asthma Depression Essential hypertension Surgical History S/P IVC filter S/P appendectomy Hx of colonoscopy History of esophagogastroduodenoscopy (EGD) Hx of eye surgery Hx of gastric bypass Family History Mother Diabetes Father Brain cancer Sister Diabetes Sister Diabetes Sister Diabetes Brother Blind Brother No problems noted. Brother No problems noted. Brother No problems noted. Brother No problems noted. Daughter No problems noted. Daughter Mental health disorder Son Mental health disorder Son No problems noted. Son No problems noted. Social History Household Members: Children Household Members Other:: - 5 kids Housing: House Are you a primary child care cook to a significant other at home: No Do you presently have visiting nurse or other home services: Yes ([employer] that visits every 3 months) Alcohol intake: unknown Comment: uses cane at times- knee gives out Patient Tobacco Use Status: Never used Tobacco Second Hand Smoke Exposure: No Advance Directives Date on File: 08/14/21 service: No Current occupational status: disabled Current occupation: rt handed Review of Systems Const All systems reviewed & are unremarkable except as noted in HPI and below ENT Denies dizziness Card Denies chest pain, Denies chest pain at rest, Denies chest pain with activity, Denies rapid heart rate, Denies pedal edema, Denies edema, Denies leg edema, Denies lightheadedness, Denies palpitations, Reports dyspnea, Reports dyspnea on exertion and Denies orthopnea Resp Denies cough, Reports dyspnea and Reports dyspnea on exertion GI Denies hematochezia and Denies change in stool character Musc Reports abnormal gait, Reports limited range of motion, Denies muscle cramps, Denies muscle weakness, Denies numbness, Denies radiating pain into limb, Denies stiffness and Denies tingling Neuro Reports abnormal gait, Denies dizziness, Denies numbness and Denies tingling Endo Denies palpitations Physical Exam Vital Signs: Last Vital Signs Pulse 75 03/09/24 08:14 BP 130/62 03/09/24 08:14 BMI result Body Mass Index 60.1 Const Other: morbidly obese, sitting in wheelchair, wearing O2 2 liters. General: cooperative and no acute distress Orientation/consciousness: patient oriented x3 Neck Neck: Yes normal visual inspection Resp Effort & Inspection: normal respiratory effort Auscultation: clear to auscultation bilaterally, no crackles, no rales, no rhonchi and no wheezes Cardio Jugular venous distension: no JVD Rate: regular rate Rhythm: regular rhythm Heart sounds: S1 normal heart sound present, S2 normal heart sound present, no murmurs and no rubs Neuro General: patient oriented x3 Extrem Other: no pitting leg edema. General: No no pedal edema Psych Appearance: grossly normal Mental Status: mental status grossly normal Speech and movement: Normal speech and movement present Assessment & Plan Assessment & Plan (1) Diastolic heart failure: Code(s): I50.30 - Unspecified diastolic (congestive) heart failure Category: Medical Plan: History of diastolic heart failure. Recent [facility] admission with hypoxic respiratory failure related to pneumonia and diastolic heart failure. He was diuresed with development of LINDSAY, discharge note indicates his creatinine was 1.7 on discharge. His lisinopril was stopped. He was not sent home with diuretics. In the past he was on Lasix 20 mg daily however not prior to the admission. Echocardiogram at [facility] on 02/24/2024 showed EF 55-60%, flattening of the interventricular septum consistent with RV volume overload, no regional wall motion abnormalities, unable to assess diastolic function. On exam today he has no noted pitting edema of his lower extremities. His lungs are diminished but no rales noted. He is morbidly obese and in a wheelchair making JVD assessment challenging. No strong indication to start on daily diuretic at this time. Will have him check CMP and BNP in the next week. Depending on lab results will consider addition of low-dose diuretic. Reviewed low-salt diet, weight loss, increasing physical activity as tolerated. (2) PAF (paroxysmal atrial fibrillation): Comment: Eliquis and Sotalol Code(s): I48.0 - Paroxysmal atrial fibrillation Category: Medical Plan: History of paroxysmal atrial fibrillation. Currently suppressed with sotalol. Last EKG done at [facility] on 02/27/2024 showed sinus bradycardia, rate 58, QTC 494 milliseconds. He had been on diltiazem at that time which was then stopped. Labs from 02/29/2024 showed potassium 3.8 calcium 9.0, magnesium 2., creatinine 1.77. Pulse regular and 75 at this visit. He is on Eliquis for anticoagulation. No bleeding issues reported. No med changes made. Cardiology office visit in 3 months, sooner if needed. (3) SHAYLA on CPAP: Code(s): G47.33 - Obstructive sleep apnea (adult) (pediatric); Z99.89 - Dependence on other enabling machines and devices Category: Medical Plan: History of sleep apnea. He tells me that he is not able to wear his mask. He says it is 25 years old. Was previously referred to sleep Medicine and states he has not been able to get an appointment. He has seen Dr. Vincent in the past for bronchial asthma. He does wear oxygen 2 L continually. Will send referral to pulmonology for re-evaluation and treatment of his sleep apnea. (4) Restrictive lung disease: Code(s): J98.4 - Other disorders of lung Category: Medical Plan: Related to his morbid obesity (5) Current use of termite inspector anticoagulation: Comment: Eliquis-typically discontinue 2 days prior to procedure-if authorized by prescriber Code(s): Z79.01 - skilled nursing (current) use of anticoagulants Category: Medical Plan: On Eliquis (6) Morbid obesity: Code(s): E66.01 - Morbid (severe) obesity due to excess calories Category: Medical Plan: Chronic. History of gastric bypass. Mostly sedentary at this point and unable to lose weight. (7) Hospital discharge follow-up: Code(s): Z09 - Encounter for follow-up examination after completed treatment for conditions other than malignant neoplasm Category: Medical Plan: As above Plan Time spent on chart review, documentation, interview and assessment Orders: Orders Comprehensive [place]. Panel Fast Today I50.30 - Unspecified diastolic (congestive) heart failure B Type Natriuretic Peptide Today I50.30 - Unspecified diastolic (congestive) heart failure Referrals Pulmonology Referral G47.33 - Obstructive sleep apnea (adult) (pediatric), Z99.89 - Dependence on other enabling machines and devices Coding Level of Care Code Est Pt Level 4 (80786) Diagnoses Diastolic heart failure I50.30 PAF (paroxysmal atrial fibrillation) I48.0 SHAYLA on CPAP G47.33; Z99.89 Restrictive lung disease J98.4 Current use of termite inspector anticoagulation Z79.01 Morbid obesity E66.01 Hospital discharge follow-up Z09 Time Spent (min) 36
== END 2024-03-09 08:57 | disposition home or self-care (01) ==
PROVIDERS: PCP Family Medicine; Visit Provider Nurse Practitioner Family
DX: I50.30 Unspecified diastolic (congestive) heart failure (principal); I48.0 Paroxysmal atrial fibrillation; G47.33 Obstructive sleep apnea (adult) (pediatric); Z99.89 Dependence on other enabling machines and devices; J98.4 Other disorders of lung; Z79.01 Long term (current) use of anticoagulants; E66.01 Morbid (severe) obesity due to excess calories; Z09 Encounter for follow-up examination after completed treatment for conditions other than malignant neoplasm
CPT/HCPCS: 99214

== ENCOUNTER → 2024-03-09 07:47 | Outpatient (BNVA) | payer MEDICARE, MEDICAID, SELFPAY | PROVIDERS: PCP Family Medicine; Visit Provider Nurse Practitioner Family | DX: Z09 Encounter for follow-up examination after completed treatment for conditions other than malignant neoplasm (principal); I50.30 Unspecified diastolic (congestive) heart failure; I48.0 Paroxysmal atrial fibrillation; G47.33 Obstructive sleep apnea (adult) (pediatric); J98.4 Other disorders of lung; E66.01 Morbid (severe) obesity due to excess calories; Z99.89 Dependence on other enabling machines and devices; Z79.01 Long term (current) use of anticoagulants; Z68.44 Body mass index [BMI] 60.0-69.9, adult | CPT/HCPCS: 99212 ==

== ENCOUNTER 2024-03-30 13:50 | Outpatient (AMB) | payer MEDICARE, MEDICAID, SELFPAY ==
--- NOTE | 2024-03-30 14:15 | A.OFFVIS_ITS ---
Vital Signs 03/30/24 14:16 Height 5 ft 9 in Weight 407 lb BMI 60.1 BP 130/86 Blood Pressure Location Lt brachial Position Sitting Pulse 80 Pulse Source Pulse Oximeter Temp 99 F Pulse Oximetry (%) 99 Oxygen Delivery Method Nasal Cannula Oxygen Flow Rate 2 Intake Visit Reasons: shayla Intake Note: pt is here for follow up from [facility], chf, afib, copd, in for 2 weeks, and now on oxygen 24 hours, has hx of SHAYLA and was told he needs a cpap. 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: No Allergies cefaclor [From [facility]] Allergy (Severe, Verified 03/30/24 14:41) hives epanolol Allergy (Severe, Verified 03/30/24 14:41) hives misoprostol Allergy (Severe, Verified 03/30/24 14:41) rash NSAIDS (Non-Steroidal Anti-Inflamma Allergy (Severe, Verified 03/30/24 14:41) GI upset Penicillins Allergy (Severe, Verified 03/30/24 14:41) hives, rash, itching Sulfa (Sulfonamide Antibiotics) Allergy (Severe, Verified 03/30/24 14:41) Hives Cephalosporins Allergy (Intermediate, Verified 03/30/24 14:41) hives amoxicillin Allergy (Mild, Verified 03/30/24 14:41) rash vancomycin Allergy (Mild, Verified 03/30/24 14:41) itching clindamycin Adverse Reaction (Intermediate, Verified 03/30/24 14:41) Rash Medication List - Last Reconciled 03/30/24 by Giancarlo Vincent MD albuterol sulfate 90 mcg/actuation 2 inhalations inhalation Q6H PRN apixaban 5 mg PO BID Bifidobacterium infantis (Align) 4 mg PO DAILY budesonide DR-ER 9 mg (3 x 3 mg) PO DAILY calcium carbonate-vitamin D3 600 mg-10 mcg (400 unit) 1 cap PO DAILY colesevelam 1,250 mg (2 x 625 mg) PO BID dapagliflozin propanediol (Farxiga) 5 mg PO DAILY diphenoxylate-atropine 2.5-0.025 mg/5 mL 5 mL PO QID PRN duloxetine 20 mg PO DAILY ferrous sulfate 1 tab PO DAILY fluticasone propionate 50 mcg/actuation (Flovent Diskus) 1 inh inhalation BID gabapentin 300 mg PO TID montelukast 10 mg PO BEDTIME multivitamin (Daily-Brent tablet) 1 tab PO DAILY nystatin topical BID omeprazole 40 mg PO DAILY@0630 oxybutynin chloride ER 40 mg PO DAILY oxycodone 5 mg PO Q6H PRN rifaximin 550 mg PO TID 2 weeks sertraline 50 mg PO DAILY simethicone (Gas Relief (simethicone)) 125 mg PO BID-QID PRN sotalol 80 mg PO BID 90 days tamsulosin 0.4 mg PO DAILY Do you need a note to return to daycare/school/sports/work: No HPI HPI shayla: Details: THIS GENTLEMAN IS 58 YEARS OLD, A CASE OF SUPER MORBID OBESITY. MOSTLY ABDOMINAL AND IN THE LOWER EXTREMITIES. HAS PAST HISTORY OF HIS OBSTRUCTIVE SLEEP APNEA BUT HAS LOST HIS CPAP MACHINE. HAS BEEN TRYING TO GET THE NEW MACHINE FOR THE LAST FEW YEARS, BUT WAS NOT ABLE TO MAKE APPOINTMENT WITH THE SLEEP SERVICES. HE HAS CHRONIC RESTRICTIVE PULMONARY DISORDER, EXPECTED. HE HAS MILD INTERMITTENT BRONCHIAL ASTHMA BUT IS NOT REQUIRING TO USE ANY INHALER THESE DAYS. HE HAS HAD GASTRIC BYPASS IN THE PAST AND LOST ABOUT 100 LBS , BUT DURING THE PAST 2 YEARS OR SO HE HAS REGAINED ALL THAT WEIGHT. HE SLEEPS MOSTLY IN THE HOSPITAL BED IN A UPRIGHT POSITION, COMPLAINS OF LOT OF SNORING AND DISTURBED SLEEP. RECENTLY ADMITTED TO [facility] WITH ACUTE CONGESTIVE HEART FAILURE WHICH WAS TREATED DIURETIC THERAPY. HE WAS DISCHARGED HOME ON O2 2 L/MINUTE CONTINUOUSLY, HE WAS ADVISED TO BE EVALUATED FOR SLEEP APNEA AND TO GET BACK ON USING CPAP. [facility] Medical History (Updated 03/30/24 @ 14:58 by Giancarlo Vincent MD) Somnolence, daytime Loud snoring SHAYLA (obstructive sleep apnea) Paroxysmal A-fib Atrial flutter PAF (paroxysmal atrial fibrillation) On beta paty at home On anticoagulant therapy SHAYLA on CPAP Bronchial asthma Restrictive lung disease Migration of vascular stent Pulmonary embolus Family history of stent Uncomplicated opioid dependence Lymphedema Lumbar disc disease Venous stasis Hyperlipidemia Neurogenic bladder Dyspnea Lumbar disc prolapse with root compression History of kidney stones GERD (gastroesophageal reflux disease) OA (osteoarthritis) Morbid obesity Asthma Depression Essential hypertension Surgical History S/P IVC filter S/P appendectomy Hx of colonoscopy History of esophagogastroduodenoscopy (EGD) Hx of eye surgery Hx of gastric bypass Family History Mother Diabetes Father Brain cancer Sister Diabetes Sister Diabetes Sister Diabetes Brother Blind Brother No problems noted. Brother No problems noted. Brother No problems noted. Brother No problems noted. Daughter No problems noted. Daughter Mental health disorder Son Mental health disorder Son No problems noted. Son No problems noted. Social History Household Members: Children Household Members Other:: - 5 kids Housing: House Are you a primary skin care specialist to a significant other at home: No Do you presently have visiting nurse or other home services: Yes ([employer] that visits every 3 months) Alcohol intake: unknown Comment: uses cane at times- knee gives out Patient Tobacco Use Status: Never used Tobacco Second Hand Smoke Exposure: No Advance Directives Date on File: 08/14/21 service: No Current occupational status: disabled Current occupation: rt handed Review of Systems Const All systems reviewed & are unremarkable except as noted in HPI and below Eyes Reports no additional complaints ENT Reports no additional complaints Card Denies chest pain and Denies irregular heart rhythm (History of atrial fib but controlled) Resp Reports as per HPI GI Reports constipation and Reports heartburn (GERD symptoms being controlled with omeprazole) Reports nocturia (BPH symptoms) Musc Reports back pain and Reports arthralgias Skin/Breast Reports system reviewed and no additional complaints, except as documented Neuro Reports no additional complaints Psych Reports depression (Controlled with med) Endo Reports no additional complaints Physical Exam Vital Signs: Last Vital Signs Temp 99 F 03/30/24 14:16 Pulse 80 03/30/24 14:16 BP 130/86 03/30/24 14:16 Pulse Ox 99 03/30/24 14:16 Oxygen Delivery Method Nasal Cannula 03/30/24 14:16 Oxygen Flow Rate 2 03/30/24 14:16 BMI result Body Mass Index 60.1 This gentleman is extremely obese, his obesity is mainly abdominal and of the lower extremities. Const General: comfortable, no acute distress, alert and awake Orientation/consciousness: patient oriented x3 HEENT Other: Oropharynx is narrow with Mallampati class 4 Head: Yes normal to inspection General nose exam: No nasal polyps present and No nasal discharge present Face and sinus: Yes sinuses nontender Mouth: oropharynx normal Throat: Yes posterior oropharynx normal Eyes General: appearance normal, both eyes and all related structures Neck Neck: Yes normal visual inspection, Yes no lymphadenopathy, Yes trachea midline and Yes no JVD Thyroid: Thyroid normal Chest Chest palpation & inspection: normal inspection of the chest, normal palpation of entire chest wall and no tenderness Resp Other: Percussion note is not perceptible due to obese chest wall. Breath sounds are decreased over both lower lobes. The upper lobes are clear without any wheezing or crepitations. Cardio Palpation: normal PMI Rate: regular rate Rhythm: regular rhythm Heart sounds: no gallops and no murmurs GI Palpation (GI): Soft to palpation, nontender, No hepatosplenomegaly present, no masses and Other GI palpation findings present (Abdomen is extremely obese and pendulous.) Auscultation: normal bowel sounds Back/Spine/Pelvis Thoracic/Lumbar Spine: thoracic and lumbar spine normal to inspection and thoraco-lumbar ROM limited Skin General skin exam: no rashes or lesions noted Neuro General: patient oriented x3 and no focal motor deficits Cranial nerves: Yes CN's II-XII intact bilaterally Extrem Other: Patient has extremely obese lower extremities with stasis edema. General: Yes venous stasis dermatitis Psych Appearance: grossly normal and well kempt Speech and movement: Normal speech and movement present Results Reviewed Results Reviewed: CT SCAN OF THE CHEST AT [facility] ON 02/25/2024. I REVIEWED THE FINDINGS. DOES NOT HAVE ANY SPECIFIC EVIDENCE OF PULMONARY FIBROSIS ,RETICULATION OR , NONSPECIFIC DENSITIES PROBABLY RELATED TO CONGESTIVE HEART FAILURE HONEYCOMBING Assessment & Plan Assessment & Plan (1) Morbid obesity: Comment: HE IS A CASE OF SUPER MORBID OBESITY. CURRENT BMI 60.1, WEIGHT FOR 0 7 LB. Code(s): E66.01 - Morbid (severe) obesity due to excess calories Category: Medical Plan: TALKED ABOUT LOSING WEIGHT HOWEVER, THIS DOES NOT SEEM TO BE ANY PRACTICAL SOLUTION AT THIS TIME HE NEEDS TO KEEP HIS FLUID BALANCE, TRY TO WALK WITH THE WALKER AT HOME MUCH HE CAN. (2) Restrictive lung disease: Comment: EXPECTED FROM HIS SUPER MORBID OBESITY HE DEFINITELY HAS RESTRICTIVE PULMONARY DISORDER. Code(s): J98.4 - Other disorders of lung Category: Medical Plan: TRY TO DO DEEP BREATHING EXERCISES 3 TIMES A DAY IF POSSIBLE (3) Bronchial asthma: Comment: He has diagnosis of mild intermittent bronchial asthma, which is not active at present. Code(s): J45.909 - Unspecified asthma, uncomplicated Category: Medical Plan: [place] : Albuterol HFA 2 puffs Q 4-6 hours only p.r.n.. Does not need to use any long-acting BDs (4) SHAYLA (obstructive sleep apnea): Comment: HE HAS PAST HISTORY OF OBSTRUCTIVE SLEEP APNEA., HAS NOT USE THE CPAP FOR QUITE A FEW YEARS. CLINICALLY HE DEFINITELY HAS SEVERE OBSTRUCTIVE SLEEP APNEA. Code(s): G47.33 - Obstructive sleep apnea (adult) (pediatric) Category: Medical Plan: TO GET HIM BACK ON THE CPAP TREATMENT HE WOULD NEED A REPEAT SLEEP STUDY. HE IS NOT FIT TO DO SLEEP STUDY AT HOME. HE NEEDS TO HAVE POLYSOMNOGRAM STUDY PERFORMED IN THE SLEEP LAB , WHICH IS BEING PLANNED. Orders: Orders RT PSG in-lab sleep study Today RT PSG in-lab sleep study Today E66.01 - Morbid (severe) obesity due to excess calories, G47.33 - Obstructive sleep apnea (adult) (pediatric), R06.83 - Snoring, R40.0 - Somnolence Coding Level of Care Code Est Pt Level 4 (06329) Diagnoses Morbid obesity E66.01 Restrictive lung disease J98.4 Bronchial asthma J45.909 SHAYLA (obstructive sleep apnea) G47.33
[2024-03-30 14:16] VITALS: BP 130/86; PULSE 80; TEMP 37.2; O2SAT 99; BMI 60.1
== END 2024-03-30 14:41 | disposition home or self-care (01) ==
PROVIDERS: PCP Family Medicine; Visit Provider Internal Medicine
DX: E66.01 Morbid (severe) obesity due to excess calories (principal); J98.4 Other disorders of lung; J45.909 Unspecified asthma, uncomplicated; G47.33 Obstructive sleep apnea (adult) (pediatric)
CPT/HCPCS: 99214

== ENCOUNTER → 2024-03-30 13:50 | Outpatient (BNVA) | payer MEDICARE, MEDICAID, SELFPAY | PROVIDERS: PCP Family Medicine; Visit Provider Internal Medicine | DX: G47.33 Obstructive sleep apnea (adult) (pediatric) (principal); J98.4 Other disorders of lung; J45.909 Unspecified asthma, uncomplicated; E66.01 Morbid (severe) obesity due to excess calories; Z68.44 Body mass index [BMI] 60.0-69.9, adult | CPT/HCPCS: 99212 ==

== ENCOUNTER → 2024-04-21 20:30 | Outpatient (REF) | payer MEDICARE, MEDICAID, SELFPAY | LOC: HO.SL 20:30 | PROVIDERS: PCP Family Medicine; Visit Provider Internal Medicine | DX: G47.33 Obstructive sleep apnea (adult) (pediatric) (principal); E66.01 Morbid (severe) obesity due to excess calories; R06.83 Snoring; R40.0 Somnolence | CPT/HCPCS: 95810 ==

== ENCOUNTER → 2024-04-21 21:58 | Outpatient (BNV) | payer MEDICARE, MEDICAID, SELFPAY | PROVIDERS: PCP Family Medicine; Visit Provider Internal Medicine | DX: G47.33 Obstructive sleep apnea (adult) (pediatric) (principal) | CPT/HCPCS: 95810 ==

== ENCOUNTER 2024-04-28 13:40 | Outpatient (AMB) | payer MEDICARE, MEDICAID, SELFPAY ==
--- NOTE | 2024-04-28 13:41 | A.OFFVIS_ITS ---
Intake Visit Reasons: Former Pt of Dr Mancilla Urgency/Incontinence Intake Note: Patient is present for urgency/incontinence former PT of Dr [facility] Medication:oyxbutynin Antibiotic Allergy:penicillin,sulfa,amoxcillin,vancomycin,clindamycin Blood Thinner:eliquis today's PVR:21ml's Ore Sampler Required: No Allergies cefaclor [From Ceclor] Allergy (Severe, Verified 05/08/24 11:31) hives epanolol Allergy (Severe, Verified 05/08/24 11:31) hives misoprostol Allergy (Severe, Verified 05/08/24 11:31) rash NSAIDS (Non-Steroidal Anti-Inflamma Allergy (Severe, Verified 05/08/24 11:31) GI upset Penicillins Allergy (Severe, Verified 05/08/24 11:31) hives, rash, itching Sulfa (Sulfonamide Antibiotics) Allergy (Severe, Verified 05/08/24 11:31) Hives Cephalosporins Allergy (Intermediate, Verified 05/08/24 11:31) hives amoxicillin Allergy (Mild, Verified 05/08/24 11:31) rash vancomycin Allergy (Mild, Verified 05/08/24 11:31) itching clindamycin Adverse Reaction (Intermediate, Verified 05/08/24 11:31) Rash Medication List - Last Reconciled 04/28/24 by Therese Soto MD albuterol sulfate 90 mcg/actuation 2 inhalations inhalation Q6H PRN apixaban 5 mg PO BID Bifidobacterium infantis (Align) 4 mg PO DAILY budesonide DR-ER 9 mg (3 x 3 mg) PO DAILY calcium carbonate-vitamin D3 600 mg-10 mcg (400 unit) 1 cap PO DAILY colesevelam 1,250 mg (2 x 625 mg) PO BID dapagliflozin propanediol (Farxiga) 5 mg PO DAILY diphenoxylate-atropine 2.5-0.025 mg/5 mL 5 mL PO QID PRN duloxetine 20 mg PO DAILY ferrous sulfate 1 tab PO DAILY fluticasone propionate 50 mcg/actuation (Flovent Diskus) 1 inh inhalation BID gabapentin 300 mg PO TID lorazepam 1 mg PO BEDTIME PRN montelukast 10 mg PO BEDTIME multivitamin (Daily-Brent tablet) 1 tab PO DAILY nystatin topical BID omeprazole 40 mg PO DAILY@0630 oxybutynin chloride ER 40 mg PO DAILY oxycodone 5 mg PO Q6H PRN rifaximin 550 mg PO TID 2 weeks sertraline 50 mg PO DAILY simethicone (Gas Relief (simethicone)) 125 mg PO BID-QID PRN sotalol 80 mg PO BID 90 days tamsulosin 0.4 mg PO DAILY vibegron (Gemtesa) 75 mg PO DAILY zolpidem 10 mg PO BEDTIME zolpidem 10 mg PO BEDTIME 1 day HPI Comments Details: Seen in the past for urinary incontinence. The patient states he is on oxybutynin 20 mg in the morning (15 mg and 5 mg tablets). He states that he is still leaking and has the urge to go to the bathroom frequently. He is prescribed tamsulosin 0.4 mg daily. The patient states that he was hospitalized at [facility] for CHF, he was told that there was kidney function issues. He had follow-up labs with his primary which noted improvement in the kidney function. He is brought labs into the office. He is unable to give a urine sample today. Bladder scan PVR 21 mL. Will order imaging to check urinary tract. Discussed combination therapy for voiding dysfunction. Will add Gemtesa 75 mg to take in the afternoon continue oxybutynin 15 mg in the morning. [facility] Medical History (Updated 05/08/24 @ 12:36 by Fran Lux MD) Nocturnal hypoxemia Somnolence, daytime Loud snoring SHAYLA (obstructive sleep apnea) Paroxysmal A-fib Atrial flutter PAF (paroxysmal atrial fibrillation) On beta paty at home On anticoagulant therapy SHAYLA on CPAP Bronchial asthma Restrictive lung disease Migration of vascular stent Pulmonary embolus Family history of stent Uncomplicated opioid dependence Lymphedema Lumbar disc disease Venous stasis Hyperlipidemia Neurogenic bladder Dyspnea Lumbar disc prolapse with root compression History of kidney stones GERD (gastroesophageal reflux disease) OA (osteoarthritis) Morbid obesity Asthma Depression Essential hypertension Surgical History (Updated 05/08/24 @ 11:34 by MILDRED Ramirez) Hx of cervical spine surgery S/P IVC filter S/P appendectomy Hx of colonoscopy History of esophagogastroduodenoscopy (EGD) Hx of eye surgery Hx of gastric bypass Family History Mother Diabetes Father Brain cancer Sister Diabetes Sister Diabetes Sister Diabetes Brother Blind Brother No problems noted. Brother No problems noted. Brother No problems noted. Brother No problems noted. Daughter No problems noted. Daughter Mental health disorder Son Mental health disorder Son No problems noted. Son No problems noted. Social History Household Members: Children Household Members Other:: - 5 kids Housing: House Are you a primary memory care program director to a significant other at home: No Do you presently have visiting nurse or other home services: Yes (SYSTEM CONSULTANT that visits every 3 months) Alcohol intake: unknown Comment: uses cane at times- knee gives out Patient Tobacco Use Status: Never used Tobacco Second Hand Smoke Exposure: No Advance Directives Date on File: 08/14/21 service: No Current occupational status: disabled Current occupation: rt handed Review of Systems Const All systems reviewed & are unremarkable except as noted in HPI and below Reports no additional complaints Eyes Reports no additional complaints ENT Reports no additional complaints Card Reports no additional complaints Resp Reports no additional complaints GI Reports no additional complaints Reports as per HPI Musc Reports no additional complaints Skin/Breast Reports system reviewed and no additional complaints, except as documented Neuro Reports no additional complaints Psych Reports no additional complaints Endo Reports no additional complaints Pierre/Lymph Reports no additional complaints Aller/Immun Reports no additional complaints Physical Exam Const General: no acute distress and well developed Orientation/consciousness: patient oriented x3 HEENT Head: Yes normocephalic and Yes atraumatic Eyes Conjunctivae: conjunctivae normal Neck Neck: Yes normal visual inspection Chest Chest palpation & inspection: normal inspection of the chest Resp Effort & Inspection: normal respiratory effort Cardio Rate: regular rate GI Inspection: Yes normal to inspection Palpation (GI): Soft to palpation Neuro General: patient oriented x3 Psych Appearance: grossly normal Affect: normal affect Assessment & Plan Assessment & Plan (1) Morbid obesity: Comment: HE IS A CASE OF SUPER MORBID OBESITY. CURRENT BMI 60.1, WEIGHT FOR 0 7 LB. Code(s): E66.01 - Morbid (severe) obesity due to excess calories Category: Medical Plan Continue oxybutynin 15 mg. Discontinue oxybutynin 5 mg. Discussed combination therapy, Gemtesa 75 mg in the afternoon Orders: Orders CT abdomen pelvis wo IV con 04/28/24 R39.9 - Unspecified symptoms and signs involving the genitourinary system, E66.01 - Morbid (severe) obesity due to excess calories, R35.0 - Frequency of micturition Medications: New vibegron (Gemtesa) take in the afternoon at 3 pm 75 mg PO DAILY 30 tabs 5RF Coding Level of Care Code New Pt Level 4 (21542) Diagnoses Morbid obesity E66.01
== END 2024-04-28 14:50 | disposition home or self-care (01) ==
PROVIDERS: PCP Family Medicine; Visit Provider Urology
DX: E66.01 Morbid (severe) obesity due to excess calories (principal)
CPT/HCPCS: 99204

== ENCOUNTER → 2024-04-28 13:40 | Outpatient (BNVA) | payer MEDICARE, MEDICAID, SELFPAY | PROVIDERS: PCP Family Medicine; Visit Provider Urology | DX: E66.01 Morbid (severe) obesity due to excess calories (principal) | CPT/HCPCS: 99202 ==

== ENCOUNTER 2024-05-08 10:44 | Outpatient (AMB) | payer MEDICARE, MEDICAID, SELFPAY ==
[2024-05-08 10:56] VITALS: BP 108/72; PULSE 84; O2SAT 97; BMI 55.5
--- NOTE | 2024-05-08 10:56 | A.OFFVIS_ITS ---
Vital Signs 05/08/24 10:56 Height 5 ft 9 in Weight 375 lb 14.21 oz BMI 55.5 BP 108/72 Blood Pressure Location Lt brachial Position Sitting Pulse 84 Pulse Oximetry (%) 97 Oxygen Delivery Method Room Air Intake Visit Reasons: shayla Intake Note: pt is here for follow up of sleep study. Marketing Effectiveness Manager Required: No Allergies cefaclor [From Ceclor] Allergy (Severe, Verified 05/08/24 11:31) hives epanolol Allergy (Severe, Verified 05/08/24 11:31) hives misoprostol Allergy (Severe, Verified 05/08/24 11:31) rash NSAIDS (Non-Steroidal Anti-Inflamma Allergy (Severe, Verified 05/08/24 11:31) GI upset Penicillins Allergy (Severe, Verified 05/08/24 11:31) hives, rash, itching Sulfa (Sulfonamide Antibiotics) Allergy (Severe, Verified 05/08/24 11:31) Hives Cephalosporins Allergy (Intermediate, Verified 05/08/24 11:31) hives amoxicillin Allergy (Mild, Verified 05/08/24 11:31) rash vancomycin Allergy (Mild, Verified 05/08/24 11:31) itching clindamycin Adverse Reaction (Intermediate, Verified 05/08/24 11:31) Rash Medication List - Last Reconciled 05/08/24 by Giancarlo Vincent MD albuterol sulfate 90 mcg/actuation 2 inhalations inhalation Q6H PRN apixaban 5 mg PO BID Bifidobacterium infantis (Align) 4 mg PO DAILY budesonide DR-ER 9 mg (3 x 3 mg) PO DAILY calcium carbonate-vitamin D3 600 mg-10 mcg (400 unit) 1 cap PO DAILY colesevelam 1,250 mg (2 x 625 mg) PO BID dapagliflozin propanediol (Farxiga) 5 mg PO DAILY diphenoxylate-atropine 2.5-0.025 mg/5 mL 5 mL PO QID PRN duloxetine 20 mg PO DAILY ferrous sulfate 1 tab PO DAILY fluticasone propionate 50 mcg/actuation (Flovent Diskus) 1 inh inhalation BID gabapentin 300 mg PO TID lorazepam 1 mg PO BEDTIME PRN montelukast 10 mg PO BEDTIME multivitamin (Daily-Brent tablet) 1 tab PO DAILY nystatin topical BID omeprazole 40 mg PO DAILY@0630 oxybutynin chloride ER 40 mg PO DAILY oxycodone 5 mg PO Q6H PRN rifaximin 550 mg PO TID 2 weeks sertraline 50 mg PO DAILY simethicone (Gas Relief (simethicone)) 125 mg PO BID-QID PRN sotalol 80 mg PO BID 90 days tamsulosin 0.4 mg PO DAILY vibegron (Gemtesa) 75 mg PO DAILY zolpidem 10 mg PO BEDTIME zolpidem 10 mg PO BEDTIME 1 day HPI HPI shayla: Details: This 58 years old gentleman with morbid obesity and symptoms of obstructive sleep apnea, comes after having a sleep lab based sleep study. He still has the same symptoms including lot of snoring, fragmented sleep and daytime sleepiness. He is trying to lose weight by restricting calories intake, and since his last visit 2 months ago he has lost about 32 lb of weight . His sleep study was grossly abnormal and he does have persistent nocturnal hypoxemia. He did not qualify for split night study. He would now need a CPAP titration study in the sleep lab. [facility] Medical History (Updated 05/08/24 @ 11:28 by Giancarlo Vincent MD) Nocturnal hypoxemia Somnolence, daytime Loud snoring SHAYLA (obstructive sleep apnea) Paroxysmal A-fib Atrial flutter PAF (paroxysmal atrial fibrillation) On beta paty at home On anticoagulant therapy SHAYLA on CPAP Bronchial asthma Restrictive lung disease Migration of vascular stent Pulmonary embolus Family history of stent Uncomplicated opioid dependence Lymphedema Lumbar disc disease Venous stasis Hyperlipidemia Neurogenic bladder Dyspnea Lumbar disc prolapse with root compression History of kidney stones GERD (gastroesophageal reflux disease) OA (osteoarthritis) Morbid obesity Asthma Depression Essential hypertension Surgical History S/P IVC filter S/P appendectomy Hx of colonoscopy History of esophagogastroduodenoscopy (EGD) Hx of eye surgery Hx of gastric bypass Family History Mother Diabetes Father Brain cancer Sister Diabetes Sister Diabetes Sister Diabetes Brother Blind Brother No problems noted. Brother No problems noted. Brother No problems noted. Brother No problems noted. Daughter No problems noted. Daughter Mental health disorder Son Mental health disorder Son No problems noted. Son No problems noted. Social History Household Members: Children Household Members Other:: - 5 kids Housing: House Are you a primary senior resident care director to a significant other at home: No Do you presently have visiting nurse or other home services: Yes (OFFLINE EDITOR that visits every 3 months) Alcohol intake: unknown Comment: uses cane at times- knee gives out Patient Tobacco Use Status: Never used Tobacco Second Hand Smoke Exposure: No Advance Directives Date on File: 08/14/21 service: No Current occupational status: disabled Current occupation: rt handed Review of Systems Const All systems reviewed & are unremarkable except as noted in HPI and below Eyes Reports no additional complaints ENT Reports no additional complaints Card Denies chest pain and Denies irregular heart rhythm (History of atrial fib but controlled) Resp Reports as per HPI GI Reports constipation and Reports heartburn (GERD symptoms being controlled with omeprazole) Reports nocturia (BPH symptoms) Musc Reports back pain and Reports arthralgias Skin/Breast Reports system reviewed and no additional complaints, except as documented Neuro Reports no additional complaints Psych Reports depression (Controlled with med) Endo Reports no additional complaints Physical Exam Vital Signs: Last Vital Signs Pulse 84 05/08/24 10:56 BP 108/72 05/08/24 10:56 Pulse Ox 97 05/08/24 10:56 Oxygen Delivery Method Room Air 05/08/24 10:56 BMI result Body Mass Index 55.5 This gentleman is extremely obese, his obesity is mainly abdominal and of the lower extremities. Const General: comfortable, no acute distress, alert and awake Orientation/consciousness: patient oriented x3 HEENT Other: Oropharynx is narrow with Mallampati class 4 Head: Yes normal to inspection General nose exam: No nasal polyps present and No nasal discharge present Face and sinus: Yes sinuses nontender Mouth: oropharynx normal Throat: Yes posterior oropharynx normal Eyes General: appearance normal, both eyes and all related structures Neck Neck: Yes normal visual inspection, Yes no lymphadenopathy, Yes trachea midline and Yes no JVD Thyroid: Thyroid normal Chest Chest palpation & inspection: normal inspection of the chest, normal palpation of entire chest wall and no tenderness Resp Other: Percussion note is not perceptible due to obese chest wall. Breath sounds are decreased over both lower lobes. The upper lobes are clear without any wheezing or crepitations. Cardio Palpation: normal PMI Rate: regular rate Rhythm: regular rhythm Heart sounds: no gallops and no murmurs GI Palpation (GI): Soft to palpation, nontender, No hepatosplenomegaly present, no masses and Other GI palpation findings present (Abdomen is extremely obese and pendulous.) Auscultation: normal bowel sounds Back/Spine/Pelvis Thoracic/Lumbar Spine: thoracic and lumbar spine normal to inspection and thoraco-lumbar ROM limited Skin General skin exam: no rashes or lesions noted Neuro General: patient oriented x3 and no focal motor deficits Cranial nerves: Yes CN's II-XII intact bilaterally Extrem Other: Patient has extremely obese lower extremities with stasis edema. General: Yes venous stasis dermatitis Psych Appearance: grossly normal and well kempt Speech and movement: Normal speech and movement present Results Reviewed Results Reviewed: Polysomnogram study in the sleep lab is positive for obstructive sleep apnea with total sleep time AHI 21.3, and his average O2 sat throughout the night was 89%. Assessment & Plan Assessment & Plan (1) Morbid obesity: Comment: HE IS A CASE OF SUPER MORBID OBESITY. CURRENT BMI 60.1, WEIGHT FOR 0 7 LB. Code(s): E66.01 - Morbid (severe) obesity due to excess calories Category: Medical Plan: see below (2) SHAYLA (obstructive sleep apnea): Comment: HE HAS PAST HISTORY OF OBSTRUCTIVE SLEEP APNEA., HAS NOT USE THE CPAP FOR QUITE A FEW YEARS. CLINICALLY HE DEFINITELY HAS SEVERE OBSTRUCTIVE SLEEP APNEA. Code(s): G47.33 - Obstructive sleep apnea (adult) (pediatric) Category: Medical Plan: see below (3) Nocturnal hypoxemia: Code(s): G47.34 - Idiopathic sleep related nonobstructive alveolar hypoventilation Category: Medical Plan: Results of polysomnogram study or discussed with him. He would definitely benefit from use of CPAP therapy. For this reason he needs a repeat CPAP study for CPAP titration in the sleep lab, to determine the appropriate pressure and also to treat hypoxemia. He is agreeable. Orders: Orders RT PSG in-lab sleep study Today E66.01 - Morbid (severe) obesity due to excess calories, G47.33 - Obstructive sleep apnea (adult) (pediatric), G47.34 - Idiopathic sleep related nonobstructive alveolar hypoventilation Coding Level of Care Code Est Pt Level 3 (17767) Diagnoses Morbid obesity E66.01 SHAYLA (obstructive sleep apnea) G47.33 Nocturnal hypoxemia G47.34
== END 2024-05-08 11:21 | disposition home or self-care (01) ==
PROVIDERS: PCP Family Medicine; Visit Provider Internal Medicine
DX: E66.01 Morbid (severe) obesity due to excess calories (principal); G47.33 Obstructive sleep apnea (adult) (pediatric); G47.34 Idiopathic sleep related nonobstructive alveolar hypoventilation
CPT/HCPCS: 99213

== ENCOUNTER → 2024-05-08 10:44 | Outpatient (BNVA) | payer MEDICARE, MEDICAID, SELFPAY | PROVIDERS: PCP Family Medicine; Visit Provider Internal Medicine | DX: R14.0 Abdominal distension (gaseous) (principal); G47.33 Obstructive sleep apnea (adult) (pediatric); G47.34 Idiopathic sleep related nonobstructive alveolar hypoventilation; E66.01 Morbid (severe) obesity due to excess calories; Z68.43 Body mass index [BMI] 50.0-59.9, adult | CPT/HCPCS: 99212 ==

== ENCOUNTER 2024-05-08 11:25 | Outpatient (AMB) | payer MEDICARE, MEDICAID, SELFPAY ==
[2024-05-08 11:31] VITALS: BMI 55.4
--- NOTE | 2024-05-08 11:31 | MHC.OFFVIS ---
Vital Signs 05/08/24 11:31 Height 5 ft 9 in Weight 375 lb BMI 55.4 Blood Pressure Location Lt brachial Position Sitting Intake Visit Reasons: f/u abdominal pains Intake Note: Jan presents in the office as a follow up. CC: After he eats he gets pains in the stomach, yesterday he was having diarrhea. Refrigerator Tester Required: No Allergies cefaclor [From Ceclor] Allergy (Severe, Verified 05/08/24 11:31) hives epanolol Allergy (Severe, Verified 05/08/24 11:31) hives misoprostol Allergy (Severe, Verified 05/08/24 11:31) rash NSAIDS (Non-Steroidal Anti-Inflamma Allergy (Severe, Verified 05/08/24 11:31) GI upset Penicillins Allergy (Severe, Verified 05/08/24 11:31) hives, rash, itching Sulfa (Sulfonamide Antibiotics) Allergy (Severe, Verified 05/08/24 11:31) Hives Cephalosporins Allergy (Intermediate, Verified 05/08/24 11:31) hives amoxicillin Allergy (Mild, Verified 05/08/24 11:31) rash vancomycin Allergy (Mild, Verified 05/08/24 11:31) itching clindamycin Adverse Reaction (Intermediate, Verified 05/08/24 11:31) Rash HPI HPI f/u abdominal pains: Details: 58 y/o male chronic bowel issues- here for f/u Recap: he has been having abn bowel habits with variation in bowel habits he has loose stools maybe twice a week stools can smell bad can look oily as well no blood in stool he had allergy tests done and were negative weight has been stable he has eye surgeries and spine surgery coming up refluc controlled with PPI rarely uses oxycodone, few times a month he had been on welchol, simehticone trials. recnetly sent FODMAP diet as well TESTS: colonoscopy: 10/2022-- nml incl biopsies CTe: herniated stomach pouch, degen spine changes, stent -aorta INTERIM: he has been having retrosternal discomfrot with food he feels omeprazole not working that well he was in [facility] for CHF for 2 weeks and had pneumonia he has been having a lot of bloating EXAM: GENERAL: The patient is obese, uses walking stick VITAL SIGNS:see workflow HEENT: Nonicteric sclerae, PERRLA, EOMI. Oropharynx clear. Moist mucous membranes. Conjunctivae appear well perfused. No thyroid mass. CHEST: Chest wall is nontender. HEART: Regular rate and rhythm without murmurs. LUNGS: Clear to auscultation bilaterally. ABDOMEN: Soft, positive bowel sounds, nontender, no organomegaly.no flank tenderness SKIN: No rash, no excessive bruising, petechiae, or purpura. NEUROLOGIC: Cranial nerves II-XII intact without motor/sensory deficit. Pscyh: nml affect A/P: 1/ Suspect may have stress induced esophagitis or gastritis, posisbly from recent stay or his chronic illness and meds, may have SIBO as well PLAN: /1 - stop omeprazole and use nexium, carafate prn 2/ rifamxin for 2 weeks 3/ get [facility] notes [facility] Medical History (Updated 05/08/24 @ 12:36 by Fran Lux MD) Nocturnal hypoxemia Somnolence, daytime Loud snoring SHAYLA (obstructive sleep apnea) Paroxysmal A-fib Atrial flutter PAF (paroxysmal atrial fibrillation) On beta paty at home On anticoagulant therapy SHAYLA on CPAP Bronchial asthma Restrictive lung disease Migration of vascular stent Pulmonary embolus Family history of stent Uncomplicated opioid dependence Lymphedema Lumbar disc disease Venous stasis Hyperlipidemia Neurogenic bladder Dyspnea Lumbar disc prolapse with root compression History of kidney stones GERD (gastroesophageal reflux disease) OA (osteoarthritis) Morbid obesity Asthma Depression Essential hypertension Surgical History (Updated 05/08/24 @ 11:34 by MILDRED Ramirez) Hx of cervical spine surgery S/P IVC filter S/P appendectomy Hx of colonoscopy History of esophagogastroduodenoscopy (EGD) Hx of eye surgery Hx of gastric bypass Family History Mother Diabetes Father Brain cancer Sister Diabetes Sister Diabetes Sister Diabetes Brother Blind Brother No problems noted. Brother No problems noted. Brother No problems noted. Brother No problems noted. Daughter No problems noted. Daughter Mental health disorder Son Mental health disorder Son No problems noted. Son No problems noted. Social History Household Members: Children Household Members Other:: - 5 kids Housing: House Are you a primary childcare attendant to a significant other at home: No Do you presently have visiting nurse or other home services: Yes (SURFACING MACHINE OPERATOR that visits every 3 months) Alcohol intake: unknown Comment: uses cane at times- knee gives out Patient Tobacco Use Status: Never used Tobacco Second Hand Smoke Exposure: No Advance Directives Date on File: 08/14/21 service: No Current occupational status: disabled Current occupation: rt handed Physical Exam Vital Signs: BMI result Body Mass Index 55.4 Assessment & Plan Assessment & Plan (1) Abdominal bloating: Code(s): R14.0 - Abdominal distension (gaseous) Category: Medical Plan: see above Medications: New esomeprazole magnesium 40 mg PO DAILY 90 caps 1RF rifaximin 550 mg PO TID 2 weeks 42 tabs 0RF sucralfate (Carafate) avoid within 2 hrs of taking your home meds 10 mL PO BID PRN 1,000 mL 0RF pain Coding Level of Care Code Est Pt Level 3 (47209) Diagnoses Abdominal bloating R14.0
== END 2024-05-08 12:38 | disposition home or self-care (01) ==
PROVIDERS: PCP Family Medicine; Visit Provider Internal Medicine Gastroenterology
DX: R14.0 Abdominal distension (gaseous) (principal)
CPT/HCPCS: 99213

== ENCOUNTER → 2024-05-26 11:09 | Outpatient (BNVA) | payer MEDICARE, MEDICAID, SELFPAY | PROVIDERS: PCP Family Medicine; Visit Provider Urology | DX: N40.1 Benign prostatic hyperplasia with lower urinary tract symptoms (principal); R33.8 Other retention of urine; N32.81 Overactive bladder | CPT/HCPCS: 51798 ==

== ENCOUNTER → 2024-05-31 01:37 | Outpatient (BNV) | payer MEDICARE, MEDICAID, SELFPAY | PROVIDERS: PCP Family Medicine; Visit Provider Internal Medicine | DX: G47.33 Obstructive sleep apnea (adult) (pediatric) (principal); G47.34 Idiopathic sleep related nonobstructive alveolar hypoventilation; E66.01 Morbid (severe) obesity due to excess calories | CPT/HCPCS: 95811 ==

== ENCOUNTER → 2024-05-31 19:30 | Outpatient (REF) | payer MEDICARE, MEDICAID, SELFPAY | LOC: HO.SL 19:30 | PROVIDERS: PCP Family Medicine; Visit Provider Internal Medicine | DX: G47.33 Obstructive sleep apnea (adult) (pediatric) (principal); G47.34 Idiopathic sleep related nonobstructive alveolar hypoventilation; E66.01 Morbid (severe) obesity due to excess calories | CPT/HCPCS: 95810 ==

== ENCOUNTER 2024-06-14 10:09 | Outpatient (AMB) | payer MEDICARE, MEDICAID, SELFPAY ==
--- NOTE | 2024-06-14 10:24 | A.OFFVIS_ITS ---
Vital Signs 06/14/24 10:25 Height 5 ft 9 in Weight 378 lb 12.066 oz BMI 55.9 BP 130/64 Blood Pressure Location Lt brachial Position Sitting Pulse 76 Pulse Source Monitor Intake Visit Reasons: 3m follow up Intake Note: 3 mth f/up Concrete Float Maker Required: No Accompanied by: Son Allergies cefaclor [From Ceclor] Allergy (Severe, Verified 05/08/24 11:31) hives epanolol Allergy (Severe, Verified 05/08/24 11:31) hives misoprostol Allergy (Severe, Verified 05/08/24 11:31) rash NSAIDS (Non-Steroidal Anti-Inflamma Allergy (Severe, Verified 05/08/24 11:31) GI upset Penicillins Allergy (Severe, Verified 05/08/24 11:31) hives, rash, itching Sulfa (Sulfonamide Antibiotics) Allergy (Severe, Verified 05/08/24 11:31) Hives Cephalosporins Allergy (Intermediate, Verified 05/08/24 11:31) hives amoxicillin Allergy (Mild, Verified 05/08/24 11:31) rash vancomycin Allergy (Mild, Verified 05/08/24 11:31) itching clindamycin Adverse Reaction (Intermediate, Verified 05/08/24 11:31) Rash Medication List - Last Reconciled 06/14/24 by Steven Ch MD albuterol sulfate 90 mcg/actuation 2 inhalations inhalation Q6H PRN apixaban 5 mg PO BID Bifidobacterium infantis (Align) 4 mg PO DAILY budesonide DR-ER 9 mg (3 x 3 mg) PO DAILY calcium carbonate-vitamin D3 600 mg-10 mcg (400 unit) 1 tab PO DAILY colesevelam 1,250 mg (2 x 625 mg) PO BID dapagliflozin propanediol (Farxiga) 5 mg PO DAILY diphenoxylate-atropine 2.5-0.025 mg/5 mL 5 mL PO QID PRN duloxetine 20 mg PO DAILY esomeprazole magnesium 40 mg PO DAILY ferrous sulfate 1 tab PO DAILY fluticasone propionate 50 mcg/actuation (Flovent Diskus) 1 inh inhalation BID gabapentin 300 mg PO TID iron,carbonyl-vitamin C 65 mg iron- 125 mg (Vitron-C) 1 tab PO DAILY lorazepam 1 mg PO BEDTIME PRN montelukast 10 mg PO BEDTIME multivitamin with folic acid 400 mcg (Daily-Brent (with folic acid)) 1 tab PO DAILY nystatin topical BID oxybutynin chloride ER 40 mg PO DAILY oxycodone 5 mg PO Q6H PRN rifaximin 550 mg PO TID 2 weeks rifaximin 550 mg PO TID 2 weeks sertraline 100 mg PO DAILY simethicone (Gas Relief (simethicone)) 125 mg PO BID-QID PRN sotalol 80 mg PO BID 90 days sucralfate (Carafate) 10 mL PO BID PRN tamsulosin 0.4 mg PO DAILY vibegron (Gemtesa) 75 mg PO DAILY zolpidem 10 mg PO BEDTIME zolpidem 10 mg PO BEDTIME 1 day HPI Comments Details: 58-year-old gentleman who was referred to us for episodes of paroxysmal atrial fibrillation. He has background history of morbid obesity status post bariatric surgery, DVT and pulmonary embolism with an IVC filter, hypertension and chronic lymphedema. It appears in 2018 he had palpitations which brought him to the emergency department and was diagnosed with atrial fibrillation. He was given metoprolol in the ER he reverted back to sinus rhythm. His Toprol-XL at that stage was increased from 50-75 mg and eventually to 100 mg. He was also started on lisinopril 5 mg for hypertension. He ran out of his medications a month ago and has not been taking lisinopril and Toprol. He is on Coumadin because of his previous DVT/pulmonary embolism and since he developed atrial fibrillation and this was continued. He continues to have morbid obesity and significant functional limitations due to arthritis and back issues. He gets short of breath when he exercises. He is denying any palpitations. He checks his INR at home and his Coumadin dose is adjusted by Dr. Trinidad. He had an echocardiogram in 2016 which showed normal left ventricular systolic function but there was septal flattening with RV pressure volume overload. Pulmonary artery systolic pressures were documented at 35-40 mm Hg at that time. He also had a dobutamine stress echo in April 2018 which did not show any evid ence of ischemia or old NE. Previous painter plate was Dr. Marcos Aguilar with [facility]. We repeated his echocardiogram which showed normal biventricular function with m ildly dilated ascending aorta. He had moderate pulmonary hypertension. He is returning for follow-up. He had IVC filter removed in [facility] and had IVC stenting done by Dr. Gaffney. He is saying since then his lower extremity edema has improved significantly but recently started noticing right foot edema and will be going back for repeat venogram in April. His blood pressure is elevated and he is taking lisinopril 10 mg once a day. He also has been experiencing some chest discomfort off and on. This happens at nighttime when he is laying down but also happens when he is walking on the treadmill. He is walking approximately 5-6 minutes on treadmill every day as part of weight loss program. He is status post bariatric surgery x 2. He underwent stress testing which did not show any perfusion defect. He also had Holter monitoring which showed episodes of atrial fibrillation. He does not feel any symptoms during atrial fibrillation. Otherwise doing well. Denying any significant chest discomfort shortness of breath. He was started on Multaq. During his follow-up in September 2022 he was in sinus rhythm. Subsequent to that he was seen in office in 2022 and his EKG in the office showing atrial flutter with variable block. Discussing with him he has no symptoms. In particular no palpitations, chest discomfort or worsening shortness of breath. He has been taking his Eliquis and Multaq regularly and he has not missed Eliquis in the last 4 weeks. 06/28/23: He is returning for follow-up. On last visit he was noticed to be in atrial fibrillation and was admitted to the hospital underwent cardioversion after stopping Multaq and was started on sotalol. He has been tolerating sotalol well. EKG in the office is showing sinus rhythm. No palpitations. He has dyspnea on exertion which is chronic due to morbid obesity. 06/14/2024: He is here for follow-up. He is saying that he got in rate to [facility] recently with congestive heart failure. We will get records from there. His EKGs showing atrial fibrillation currently with rate control. He is on sotalol 80 mg twice a day. He is on apixaban 5 mg twice a day. He is denying any symptoms. No palpitations or worsening dyspnea [facility] Medical History (Updated 05/08/24 @ 12:36 by Fran Lux MD) Nocturnal hypoxemia Somnolence, daytime Loud snoring SHAYLA (obstructive sleep apnea) Paroxysmal A-fib Atrial flutter PAF (paroxysmal atrial fibrillation) On beta paty at home On anticoagulant therapy SHAYLA on CPAP Bronchial asthma Restrictive lung disease Migration of vascular stent Pulmonary embolus Family history of stent Uncomplicated opioid dependence Lymphedema Lumbar disc disease Venous stasis Hyperlipidemia Neurogenic bladder Dyspnea Lumbar disc prolapse with root compression History of kidney stones GERD (gastroesophageal reflux disease) OA (osteoarthritis) Morbid obesity Asthma Depression Essential hypertension Surgical History Hx of cervical spine surgery S/P IVC filter S/P appendectomy Hx of colonoscopy History of esophagogastroduodenoscopy (EGD) Hx of eye surgery Hx of gastric bypass Family History Mother Diabetes Father Brain cancer Sister Diabetes Sister Diabetes Sister Diabetes Brother Blind Brother No problems noted. Brother No problems noted. Brother No problems noted. Brother No problems noted. Daughter No problems noted. Daughter Mental health disorder Son Mental health disorder Son No problems noted. Son No problems noted. 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 ENGINEER that visits every 3 months) Alcohol intake: unknown Comment: uses cane at times- knee gives out Patient Tobacco Use Status: Never used Tobacco Second Hand Smoke Exposure: No Advance Directives Date on File: 08/14/21 service: No Current occupational status: disabled Current occupation: rt handed Review of Systems Const Denies chills, Denies fatigue, Denies fever(s), Denies frequent falls, Denies weakness, Denies weight gain and Denies weight loss ENT Denies dizziness Card Denies chest pain, Denies leg edema, Denies lightheadedness, Denies palpitations, Denies dyspnea and Denies dyspnea on exertion Resp Denies cough, Denies dyspnea and Denies dyspnea on exertion GI Denies hematochezia Musc Denies abnormal gait, Denies muscle weakness, Denies numbness, Denies radiating pain into limb and Denies tingling Neuro Denies abnormal gait, Denies dizziness, Denies frequent falls, Denies numbness, Denies tingling and Denies weakness Endo Denies fatigue and Denies palpitations Physical Exam Vital Signs: Last Vital Signs Pulse 76 06/14/24 10:25 BP 130/64 06/14/24 10:25 BMI result Body Mass Index 55.9 GENERAL APPEARANCE: in no acute distress, morbidly obese. NECK: no carotid bruit, no jugular venous distention. SKIN: Chronic lymphedema bilateral lower extremities. HEART: no murmurs, irregular rate and rhythm. LUNGS: clear to auscultation bilaterally. ABDOMEN: soft, nontender. EXTREMITIES: Chronic lymphedema. PERIPHERAL PULSES: equal. NEUROLOGIC: No gross deficits, AAO X 3 Office Procedures EKG Details: Atrial fibrillation 76 beats per minute, normal axis, incomplete right bundle- branch block, QTC 445 milliseconds. [id number], Complete Assessment & Plan Assessment & Plan (1) PAF (paroxysmal atrial fibrillation): Comment: Eliquis and Sotalol Code(s): I48.0 - Paroxysmal atrial fibrillation Category: Medical (2) Morbid obesity: Comment: HE IS A CASE OF SUPER MORBID OBESITY. CURRENT BMI 60.1, WEIGHT FOR 0 7 LB. 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 He has background history of morbid obesity and paroxysmal atrial fibrillation. Last year he was at [facility] when he was started on sotalol. He did fine after that and was seen in the office and was doing well. He is saying he was at [facility] with congestive heart failure recently. We will get records. He continues to be on sotalol. He is in atrial fibrillation currently. We will check Holter for 5 days to see if he is going in and out of atrial fibrillation. If in fact he has paroxysmal AFib then we may have to make some decisions about sotalol use. On the other hand if he is persistently in atrial fibrillation and has no symptoms then maybe we take a rate control strategy and stopped the sotalol because it has significant interactions with other medications. He will see us back in 2 months. Thank you for allowing me to participate in the care of your patient. Please feel free to contact me if you have any questions. Orders: Orders ECG 5 day holter monitor Today I48.0 - Paroxysmal atrial fibrillation Coding Level of Care Code Est Pt Level 4 (69318) Diagnoses PAF (paroxysmal atrial fibrillation) I48.0 Morbid obesity E66.01 Current use of mcfp anticoagulation Z79.01 CPT Codes EKG - CPT: 43631-[id number], Complete ([id number])
[2024-06-14 10:25] VITALS: BP 130/64; PULSE 76; BMI 55.9
== END 2024-06-14 10:47 | disposition home or self-care (01) ==
PROVIDERS: PCP Family Medicine; Visit Provider Internal Medicine Cardiovascular Disease
DX: I48.0 Paroxysmal atrial fibrillation (principal); E66.01 Morbid (severe) obesity due to excess calories; Z79.01 Long term (current) use of anticoagulants
CPT/HCPCS: 93010; 99214

== ENCOUNTER → 2024-06-14 10:09 | Outpatient (BNVA) | payer MEDICARE, MEDICAID, SELFPAY | PROVIDERS: PCP Family Medicine; Visit Provider Internal Medicine Cardiovascular Disease | DX: I48.0 Paroxysmal atrial fibrillation (principal); E66.01 Morbid (severe) obesity due to excess calories; I11.0 Hypertensive heart disease with heart failure; I50.9 Heart failure, unspecified; Z98.84 Bariatric surgery status; Z86.718 Personal history of other venous thrombosis and embolism; Z79.01 Long term (current) use of anticoagulants; Z86.711 Personal history of pulmonary embolism; Z68.43 Body mass index [BMI] 50.0-59.9, adult | CPT/HCPCS: 93005; 99212 ==

== ENCOUNTER → 2024-07-03 09:35 | Outpatient (REF) | payer MEDICARE, MEDICAID, SELFPAY ==
--- NOTE | 2024-07-03 09:37 | HM_ITS ---
Conclusion: 1. Patient was monitored for total period of 6 days and 20 hours 2. Baseline was normal sinus rhythm with average heart of 57 beats per minute 3. No significant pauses noted but frequent sinus bradycardia noted with 69% of time heart rate below 60 beats per minute 4. Frequent PACs noted with total burden of 2.8% with 28 SVT events, longest lasting 11 beats and the fastest at 153 beats per minute 5. No patient reported symptoms MTDD
== END ==
LOC: HO.CARD 09:35
PROVIDERS: PCP Family Medicine; Visit Provider Internal Medicine Cardiovascular Disease
DX: I48.0 Paroxysmal atrial fibrillation (principal)
CPT/HCPCS: 93242

== ENCOUNTER → 2024-07-03 09:37 | Outpatient (BNV) | payer MEDICARE, MEDICAID, SELFPAY | PROVIDERS: PCP Family Medicine; Visit Provider Internal Medicine Cardiovascular Disease | DX: I49.1 Atrial premature depolarization (principal); I47.10 Supraventricular tachycardia, unspecified | CPT/HCPCS: 93244 ==

== ENCOUNTER 2024-07-10 10:19 | Outpatient (REF) | payer MEDICARE, MEDICAID, SELFPAY ==
--- NOTE | ~2024-07-10 | CT_ITS ---
EXAMINATION: CT ABDOMEN AND PELVIS WITHOUT CONTRAST CLINICAL INFORMATION: Unspecified symptoms and signs involving the genitourinary system. COMPARISON: CT enterography 11/17/2022. TECHNIQUE: Multidetector volumetric imaging was performed from the superior aspect of the liver through the pubic symphysis. Sagittal and coronal reformatted images were obtained on the technologist's workstation. This CT examination was performed using dose optimization techniques as appropriate, variously including the following: *Automated exposure control *Adjustment of mA and/or kV according to patient size (this includes techniques or standardized protocols for targeted exams where dose is matched to indication/reason for exam; i.e. extremities or head) *Use of iterative reconstruction technique DLP: 1079 mGy-cm Examination submitted for interpretation 09/15/2024. FINDINGS: Study somewhat limited by patient habitus. This results in beam starvation artifact, mildly limiting detection of subtle findings. LUNG BASES: -There are patchy round glass type opacities within the lingula, right middle lobe, and right lower lobe, which have an inflammatory or infectious type appearance. These appear more numerous than on the previous exam although were present in the left lower lobe on the prior. Process appears to be ongoing. -There are no effusions. -There is bronchiectasis in both lower lobes without bronchial wall thickening. -There is mild/moderate cardiomegaly. There are mild coronary calcifications. There is no pericardial effusion. -Patulous appearing distal esophagus leads into a hiatus hernia and gastric bypass procedure. LIVER, GALLBLADDER, AND BILIARY TREE: -Unenhanced liver demonstrates no discrete abnormality. Normal in attenuation. Increased size, with craniocaudal length of 24 cm. - The gallbladder demonstrates no evidence of gallbladder wall thickening, or obvious pericholecystic inflammatory changes. - Suspect gallstones present (series 3, image 33). No biliary dilatation. PANCREAS: Unremarkable. SPLEEN: Unremarkable. ADRENAL GLANDS: Unremarkable. KIDNEYS AND URETERS: -Left kidney normal . -Right kidney demonstrates a 5 mm calculus in the lower pole, nonobstructing. Right kidney is otherwise normal. -There is mild nonspecific perirenal stranding bilaterally. -Ureters are nondilated. BLADDER: The urinary bladder is completely decompressed and contains intraluminal gas. No significant wall thickening noted or inflammatory change. Gas is likely present from iatrogenic cause. GASTROINTESTINAL TRACT: -Post gastric bypass. Hiatus hernia. Patulous appearing distal esophagus. -Excluded stomach, duodenum, and small bowel appear normal. -The colon appears normal. No rectal abnormality. -No acute findings in the GI system. ABDOMINAL WALL: -Morbid obesity. -Prominent inguinal lymph nodes are present, stable from prior exam, presumably reactive in nature. There is a small fat-containing periumbilical hernia. -Grossly no masses or fluid collections present. -Generalized atrophy of the pelvic girdle musculature, presumably from sedentary state. LYMPH NODES: -Prominent inguinal lymph nodes as above, unchanged. -Mildly enlarged external iliac lymph nodes right greater than left, with left measuring up to 1.5 x 2.7 cm (series 3, image 88), unchanged suggesting benignity and reactive etiology. -No additional lymphadenopathy present. VASCULAR: -There is a stent within the IVC. -There is no aneurysm or significant atheromatous changes. PELVIC VISCERA: -The prostate is small and difficult to visualize. -Otherwise normal. OSSEOUS STRUCTURES: -There is generalized osteopenia. This appears most notable in the lower lumbar spine. -There are moderate degenerative changes throughout the spine, as well as the left greater than right hip joints. -Is no acute or suspicious bony abnormality. CT/CT abdomen pelvis wo IV con IMPRESSION: 1. No hydronephrosis or hydroureter. There is a 5 mm nonobstructing calculus in the right kidney lower pole. 2. Decompressed urinary bladder with intraluminal gas, presumably from either self catheterization or iatrogenic. 3. Inflammatory appearing groundglass opacities within the lung bases bilaterally, present on the previous exam but more numerous on today's exam. There is bilateral lower lobe diffuse bronchiectasis. Findings suggest inflammatory or infectious pneumonia. Follow-up suggested. 4. Hepatomegaly. 5. IVC stent in place. 6. Stable lymphadenopathy in the bilateral inguinal regions and external iliac locations, presumably benign given stability. 7. Morbid obesity. Status post gastric bypass with patulous appearing distal esophagus and hiatus hernia. 8. Probable cholelithiasis. 9. Additional ancillary findings as discussed in the body of the report. Fleischner guidelines were followed. Electronically signed by: Jerry Garcia MD 09/15/2024 09:32 AM [facility]
== END 2024-07-10 10:20 | disposition home or self-care (01) ==
LOC: HO.CT 10:19
PROVIDERS: PCP Family Medicine; Visit Provider Urology
DX: R39.9 Unspecified symptoms and signs involving the genitourinary system (principal); R35.0 Frequency of micturition; E66.01 Morbid (severe) obesity due to excess calories
CPT/HCPCS: 74176

== ENCOUNTER → 2024-07-10 10:21 | Outpatient (BNV) | payer MEDICARE, MEDICAID, SELFPAY | PROVIDERS: PCP Family Medicine; Visit Provider Radiology Diagnostic Radiology | DX: N20.0 Calculus of kidney (principal); R16.0 Hepatomegaly, not elsewhere classified | CPT/HCPCS: 74176 ==

== ENCOUNTER → 2024-07-28 11:04 | Outpatient (BNVA) | payer MEDICARE, MEDICAID, SELFPAY | PROVIDERS: PCP Family Medicine; Visit Provider Urology ==

== ENCOUNTER 2024-08-09 13:31 | Outpatient (AMB) | payer MEDICARE, MEDICAID, SELFPAY ==
--- NOTE | 2024-07-28 10:50 | A.OFFVIS_ITS ---
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: No Allergies cefaclor [From Ceclor] Allergy (Severe, Verified 07/28/24 10:54) hives epanolol Allergy (Severe, Verified 07/28/24 10:54) hives misoprostol Allergy (Severe, Verified 07/28/24 10:54) rash NSAIDS (Non-Steroidal Anti-Inflamma Allergy (Severe, Verified 07/28/24 10:54) GI upset Penicillins Allergy (Severe, Verified 07/28/24 10:54) hives, rash, itching Sulfa (Sulfonamide Antibiotics) Allergy (Severe, Verified 07/28/24 10:54) Hives Cephalosporins Allergy (Intermediate, Verified 07/28/24 10:54) hives amoxicillin Allergy (Mild, Verified 07/28/24 10:54) rash vancomycin Allergy (Mild, Verified 07/28/24 10:54) itching clindamycin Adverse Reaction (Intermediate, Verified 07/28/24 10:54) Rash HPI Comments Details: Seen in the past for urinary incontinence. The patient states he is on oxybutynin 20 mg in the morning (15 mg and 5 mg tablets). He states that he is still leaking and has the urge to go to the bathroom frequently. He is prescribed tamsulosin 0.4 mg daily. The patient states that he was hospitalized at [facility] for CHF, he was told that there was kidney function issues. He had follow-up labs with his primary which noted improvement in the kidney function. He is brought labs into the office. He is unable to give a urine sample today. Bladder scan PVR 21 mL. Will order imaging to check urinary tract. Discussed combination therapy for voiding dysfunction. Will add Gemtesa 75 mg to take in the afternoon continue oxybutynin 15 mg in the morning. [facility] Medical History (Updated 05/08/24 @ 12:36 by Fran Lux MD) Nocturnal hypoxemia Somnolence, daytime Loud snoring SHAYLA (obstructive sleep apnea) Paroxysmal A-fib Atrial flutter PAF (paroxysmal atrial fibrillation) On beta paty at home On anticoagulant therapy SHAYLA on CPAP Bronchial asthma Restrictive lung disease Migration of vascular stent Pulmonary embolus Family history of stent Uncomplicated opioid dependence Lymphedema Lumbar disc disease Venous stasis Hyperlipidemia Neurogenic bladder Dyspnea Lumbar disc prolapse with root compression History of kidney stones GERD (gastroesophageal reflux disease) OA (osteoarthritis) Morbid obesity Asthma Depression Essential hypertension Surgical History Hx of cervical spine surgery S/P IVC filter S/P appendectomy Hx of colonoscopy History of esophagogastroduodenoscopy (EGD) Hx of eye surgery Hx of gastric bypass Family History Mother Diabetes Father Brain cancer Sister Diabetes Sister Diabetes Sister Diabetes Brother Blind Brother No problems noted. Brother No problems noted. Brother No problems noted. Brother No problems noted. Daughter No problems noted. Daughter Mental health disorder Son Mental health disorder Son No problems noted. Son No problems noted. 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
--- NOTE | 2024-08-09 13:26 | A.OFFVIS_ITS ---
Intake Visit Reasons: 3m/CT(pending) Intake Note: Patient is present for 3m/CT Urology Medication:TAMSULOSIN, GEMTESA, OXYBUTYNIN Antibiotic Allergy:PENICILLIN,SULFA,AMOXICILLIN,VANCOMYCIN,CLINDAMYCIN Blood Thinner:ELIQUIS Final Block Press Operator Required: No Allergies cefaclor [From Ceclor] Allergy (Severe, Verified 08/09/24 13:29) hives epanolol Allergy (Severe, Verified 08/09/24 13:29) hives misoprostol Allergy (Severe, Verified 08/09/24 13:29) rash NSAIDS (Non-Steroidal Anti-Inflamma Allergy (Severe, Verified 08/09/24 13:29) GI upset Penicillins Allergy (Severe, Verified 08/09/24 13:29) hives, rash, itching Sulfa (Sulfonamide Antibiotics) Allergy (Severe, Verified 08/09/24 13:29) Hives Cephalosporins Allergy (Intermediate, Verified 08/09/24 13:29) hives amoxicillin Allergy (Mild, Verified 08/09/24 13:29) rash vancomycin Allergy (Mild, Verified 08/09/24 13:29) itching clindamycin Adverse Reaction (Intermediate, Verified 08/09/24 13:29) Rash Medication List - Last Reconciled 08/09/24 by Therese Soto MD albuterol sulfate 90 mcg/actuation 2 inhalations inhalation Q6H PRN apixaban 5 mg PO BID Bifidobacterium infantis (Align) 4 mg PO DAILY budesonide DR-ER 9 mg (3 x 3 mg) PO DAILY calcium carbonate-vitamin D3 600 mg-10 mcg (400 unit) 1 tab PO DAILY colesevelam 1,250 mg (2 x 625 mg) PO BID dapagliflozin propanediol (Farxiga) 5 mg PO DAILY diphenoxylate-atropine 2.5-0.025 mg/5 mL 5 mL PO QID PRN duloxetine 20 mg PO DAILY esomeprazole magnesium 40 mg PO DAILY ferrous sulfate 1 tab PO DAILY fluticasone propionate 50 mcg/actuation (Flovent Diskus) 1 inh inhalation BID gabapentin 300 mg PO TID iron,carbonyl-vitamin C 65 mg iron- 125 mg (Vitron-C) 1 tab PO DAILY lorazepam 1 mg PO BEDTIME PRN montelukast 10 mg PO BEDTIME multivitamin with folic acid 400 mcg (Daily-Brent (with folic acid)) 1 tab PO DAILY nystatin topical BID oxybutynin chloride ER 15 mg PO DAILY oxycodone 5 mg PO Q6H PRN rifaximin 550 mg PO TID 2 weeks rifaximin 550 mg PO TID 2 weeks sertraline 100 mg PO DAILY simethicone (Gas Relief (simethicone)) 125 mg PO BID-QID PRN sotalol 80 mg PO BID 90 days sucralfate 10 mL PO BID PRN tamsulosin 0.4 mg PO DAILY vibegron (Gemtesa) 75 mg PO DAILY zolpidem 10 mg PO BEDTIME zolpidem 10 mg PO BEDTIME 1 day HPI Comments Details: 08/09/24--Jan states the addition of the gemtesa to the oxybutynin has helped his bladder symptoms. I have discussed CTAP results--right kidney stone. Patient denies renal colic symptoms. Review of chart: 04/28/24--Seen in the past for urinary incontinence. The patient states he is on oxybutynin 20 mg in the morning (15 mg and 5 mg tablets). He states that he is still leaking and has the urge to go to the bathroom frequently. He is prescribed tamsulosin 0.4 mg daily. The patient states that he was hospitalized at [facility] for CHF, he was told that there was kidney function issues. He had follow-up labs with his primary which noted improvement in the kidney function. He is brought labs into the office. He is unable to give a urine sample today. Bladder scan PVR 21 mL. Will order imaging to check urinary tract. Discussed combination therapy for voiding dysfunction. Will add Gemtesa 75 mg to take in the afternoon continue oxybutynin 15 mg in the morning. [facility] Medical History Nocturnal hypoxemia Somnolence, daytime Loud snoring SHAYLA (obstructive sleep apnea) Paroxysmal A-fib Atrial flutter PAF (paroxysmal atrial fibrillation) On beta paty at home On anticoagulant therapy SHAYLA on CPAP Bronchial asthma Restrictive lung disease Migration of vascular stent Pulmonary embolus Family history of stent Uncomplicated opioid dependence Lymphedema Lumbar disc disease Venous stasis Hyperlipidemia Neurogenic bladder Dyspnea Lumbar disc prolapse with root compression History of kidney stones GERD (gastroesophageal reflux disease) OA (osteoarthritis) Morbid obesity Asthma Depression Essential hypertension Surgical History Hx of cervical spine surgery S/P IVC filter S/P appendectomy Hx of colonoscopy History of esophagogastroduodenoscopy (EGD) Hx of eye surgery Hx of gastric bypass Family History Mother Diabetes Father Brain cancer Sister Diabetes Sister Diabetes Sister Diabetes Brother Blind Brother No problems noted. Brother No problems noted. Brother No problems noted. Brother No problems noted. Daughter No problems noted. Daughter Mental health disorder Son Mental health disorder Son No problems noted. Son No problems noted. 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 that visits every 3 months) Alcohol intake: unknown Comment: uses cane at times- knee gives out Patient Tobacco Use Status: Never used Tobacco Second Hand Smoke Exposure: No Advance Directives Date on File: 08/14/21 service: No Current occupational status: disabled Current occupation: rt handed Review of Systems Const All systems reviewed & are unremarkable except as noted in HPI and below Reports no additional complaints Eyes Reports no additional complaints ENT Reports no additional complaints Card Reports no additional complaints Resp Reports no additional complaints GI Reports no additional complaints Reports as per HPI Musc Reports no additional complaints Skin/Breast Reports system reviewed and no additional complaints, except as documented Neuro Reports no additional complaints Psych Reports no additional complaints Endo Reports no additional complaints Pierre/Lymph Reports no additional complaints Aller/Immun Reports no additional complaints Telehealth Telehealth Telehealth Platform: [facility] Location of provider rendering services: practice address Location of patient: address on file Patient Identification confirmed using: Name, : Yes Telehealth method: video Patient verbally consented to treatment: Yes Patient verbally consented to billing insurance company: Yes Patient informed of any privacy concerns related to visit: Yes Assessment & Plan Assessment & Plan (1) Morbid obesity: Code(s): E66.01 - Morbid (severe) obesity due to excess calories Category: Medical (2) Urinary frequency: Code(s): R35.0 - Frequency of micturition Category: Medical (3) Urge incontinence of urine: Code(s): N39.41 - Urge incontinence Category: Medical (4) Kidney stone: Code(s): N20.0 - Calculus of kidney Category: Medical Plan Continue oxybutynin 15 mg. Gemtesa 75 mg in the afternoon monitor kidneys FU in 6 months Medications: New oxybutynin chloride ER 15 mg PO DAILY 90 tabs 3RF Refilled vibegron (Gemtesa) take in the afternoon at 3 pm 75 mg PO DAILY 30 tabs 5RF Patient Instructions: The patient had an opportunity to ask questions regarding treatment plan. The patient expressed understanding and agreement with the above treatment plan. The patient is aware they should contact our office by phone for worsening of their current condition or the appearance of new symptoms. Compliance is encouraged with any medications and followup testing that is ordered. It is a privilege to be allowed the opportunity to participate in the urologic care of your patient. If you have any questions or concerns regarding treatment for the above conditions please do not hesitate to contact me. The office telephone contact is [phone]. This note is constructed in part using voice recognition software. While every effort has been made to ensure accuracy technical administrator errors may have been included. Yours sincerely, Therese Soto MD Coding Level of Care Code Tele Est Pt Level 4 (36392) Diagnoses Morbid obesity E66.01 Urinary frequency R35.0 Urge incontinence of urine N39.41 Kidney stone N20.0
== END 2024-08-09 16:20 | disposition home or self-care (01) ==
PROVIDERS: PCP Family Medicine; Visit Provider Urology
DX: R35.0 Frequency of micturition (principal); N39.41 Urge incontinence; N20.0 Calculus of kidney; E66.01 Morbid (severe) obesity due to excess calories
CPT/HCPCS: 99214

== ENCOUNTER → 2024-08-09 13:31 | Outpatient (BNVA) | payer MEDICARE, MEDICAID, SELFPAY | PROVIDERS: PCP Family Medicine; Visit Provider Urology ==

== ENCOUNTER 2024-08-15 09:56 | Outpatient (AMB) | payer MEDICARE, MEDICAID, SELFPAY ==
[2024-08-15 10:16] VITALS: BP 122/82; PULSE 94; O2SAT 95; BMI 52.7
--- NOTE | 2024-08-15 10:16 | A.OFFVIS_ITS ---
Vital Signs 08/15/24 10:16 Height 5 ft 9 in Weight 357 lb 2.382 oz BMI 52.7 BP 122/82 Blood Pressure Location Lt brachial Position Sitting Pulse 94 Pulse Source Pulse Oximeter Pulse Oximetry (%) 95 Oxygen Delivery Method Room Air Intake Visit Reasons: Obstructive sleep apnea Intake Note: pt is here for follow up and is using cpap, doing okay, Juvenile Court Judge Required: No Allergies cefaclor [From Ceclor] Allergy (Severe, Verified 08/15/24 10:42) hives epanolol Allergy (Severe, Verified 08/15/24 10:42) hives misoprostol Allergy (Severe, Verified 08/15/24 10:42) rash NSAIDS (Non-Steroidal Anti-Inflamma Allergy (Severe, Verified 08/15/24 10:42) GI upset Penicillins Allergy (Severe, Verified 08/15/24 10:42) hives, rash, itching Sulfa (Sulfonamide Antibiotics) Allergy (Severe, Verified 08/15/24 10:42) Hives Cephalosporins Allergy (Intermediate, Verified 08/15/24 10:42) hives amoxicillin Allergy (Mild, Verified 08/15/24 10:42) rash vancomycin Allergy (Mild, Verified 08/15/24 10:42) itching clindamycin Adverse Reaction (Intermediate, Verified 08/15/24 10:42) Rash Medication List - Last Reconciled 08/15/24 by Giancarlo Vincent MD apixaban 5 mg PO BID Bifidobacterium infantis (Align) 4 mg PO DAILY budesonide DR-ER 9 mg (3 x 3 mg) PO DAILY calcium carbonate-vitamin D3 600 mg-10 mcg (400 unit) 1 tab PO DAILY colesevelam 1,250 mg (2 x 625 mg) PO BID dapagliflozin propanediol (Farxiga) 5 mg PO DAILY diphenoxylate-atropine 2.5-0.025 mg/5 mL 5 mL PO QID PRN duloxetine 20 mg PO DAILY esomeprazole magnesium 40 mg PO DAILY ferrous sulfate 1 tab PO DAILY gabapentin 300 mg PO TID lorazepam 1 mg PO BEDTIME PRN montelukast 10 mg PO BEDTIME multivitamin with folic acid 400 mcg (Daily-Brent (with folic acid)) 1 tab PO DAILY nystatin topical BID oxybutynin chloride ER 15 mg PO DAILY oxycodone 5 mg PO Q6H PRN prednisolone acetate 1% drps ophthalmic (eye) rifaximin 550 mg PO TID 2 weeks rifaximin 550 mg PO TID 2 weeks sertraline 100 mg PO DAILY simethicone (Gas Relief (simethicone)) 125 mg PO BID-QID PRN sotalol 80 mg PO BID 90 days sucralfate 10 mL PO BID PRN tamsulosin 0.4 mg PO DAILY vibegron (Gemtesa) 75 mg PO DAILY zolpidem 10 mg PO BEDTIME Do you need a note to return to daycare/school/sports/work: No HPI HPI Obstructive sleep apnea: Details: CHRISTIE IS THE 58 YEARS OLD GENTLEMAN, WITH SUPER MORBID OBESITY, EXTENSIVE STASIS EDEMA AND LYMPHEDEMA OF THE LOWER EXTREMITIES, WITH SUPERFICIAL ULCERATIONS, GETS AROUND IN A LARGE WHEELCHAIR. HE DOES HAVE DIAGNOSIS OF SEVERE OBSTRUCTIVE SLEEP APNEA, HAD CPAP TITRATION STUDY ON 06/08, AND AFTER THAT HE WAS STARTED ON BIPAP THERAPY AT NIGHTTIME, WITH PRESSURE SETTING OF 23/13 CM. HE IS USING FULLFACE MASK .OF LARGE SIZE .DOES USE HUMIDIFICATION USING CPAP ALMOST EVERY NIGHT AND SEES HIS SLEEP IS MUCH BETTER. THE MASK DOES SLIP OFF DURING SLEEP SOMETIMES BUT THERE IS NO SIGNIFICANT DEGREE OF AIR LEAK. HIS SLEEP PATTERN IS MUCH IMPROVED. HE IS LESS SLEEPY DURING THE DAYTIME. HE IS TRYING TO LOSE WEIGHT GRADUALLY, AND THERE IS EVIDENCE OF WEIGHT LOSS OF 50 LB IN THE LAST 6 MONTHS. HE DOES HAVE CHRONIC NASAL ALLERGY PROBLEM USES MONTELUKAST 10 MG DAILY HE USES ALBUTEROL INHALER ONLY ONCE IN A WHILE. HE HAS MULTIPLE COMORBIDITIES WHICH ARE REVIEWED. HE IS USING BUDESONIDE PREPARATION 9 MG DAILY FOR HIS INFLAMMATORY BOWEL DISEASE. [facility] Medical History Nocturnal hypoxemia Somnolence, daytime Loud snoring SHAYLA (obstructive sleep apnea) Paroxysmal A-fib Atrial flutter PAF (paroxysmal atrial fibrillation) On beta paty at home On anticoagulant therapy SHAYLA on CPAP Bronchial asthma Restrictive lung disease Migration of vascular stent Pulmonary embolus Family history of stent Uncomplicated opioid dependence Lymphedema Lumbar disc disease Venous stasis Hyperlipidemia Neurogenic bladder Dyspnea Lumbar disc prolapse with root compression History of kidney stones GERD (gastroesophageal reflux disease) OA (osteoarthritis) Morbid obesity Asthma Depression Essential hypertension Surgical History Hx of cervical spine surgery S/P IVC filter S/P appendectomy Hx of colonoscopy History of esophagogastroduodenoscopy (EGD) Hx of eye surgery Hx of gastric bypass Family History Mother Diabetes Father Brain cancer Sister Diabetes Sister Diabetes Sister Diabetes Brother Blind Brother No problems noted. Brother No problems noted. Brother No problems noted. Brother No problems noted. Daughter No problems noted. Daughter Mental health disorder Son Mental health disorder Son No problems noted. Son No problems noted. Social History Household Members: Children Household Members Other:: - 5 kids Housing: House Are you a primary child care coordinator to a significant other at home: No Do you presently have visiting nurse or other home services: Yes (LOG OPERATIONS COORDINATOR that visits every 3 months) Alcohol intake: unknown Comment: uses cane at times- knee gives out Patient Tobacco Use Status: Never used Tobacco Second Hand Smoke Exposure: No Advance Directives Date on File: 08/14/21 service: No Current occupational status: disabled Current occupation: rt handed Review of Systems Const All systems reviewed & are unremarkable except as noted in HPI and below Eyes Reports no additional complaints ENT Reports no additional complaints Card Denies chest pain and Denies irregular heart rhythm (History of atrial fib but controlled) Resp Reports as per HPI GI Reports constipation and Reports heartburn (GERD symptoms being controlled with omeprazole) Reports nocturia (BPH symptoms) Musc Reports back pain and Reports arthralgias Skin/Breast Reports system reviewed and no additional complaints, except as documented Neuro Reports no additional complaints Psych Reports depression (Controlled with med) Endo Reports no additional complaints Physical Exam Vital Signs: Last Vital Signs Pulse 94 08/15/24 10:16 BP 122/82 08/15/24 10:16 Pulse Ox 95 08/15/24 10:16 Oxygen Delivery Method Room Air 08/15/24 10:16 BMI result Body Mass Index 52.7 This gentleman is extremely obese, his obesity is mainly abdominal and of the lower extremities. Const General: comfortable, no acute distress, alert and awake Orientation/consciousness: patient oriented x3 HEENT Other: Oropharynx is narrow with Mallampati class 4 Head: Yes normal to inspection General nose exam: No nasal polyps present and No nasal discharge present Face and sinus: Yes sinuses nontender Mouth: oropharynx normal Throat: Yes posterior oropharynx normal Eyes General: appearance normal, both eyes and all related structures Neck Neck: Yes normal visual inspection, Yes no lymphadenopathy, Yes trachea midline and Yes no JVD Thyroid: Thyroid normal Chest Chest palpation & inspection: normal inspection of the chest, normal palpation of entire chest wall and no tenderness Resp Other: Percussion note is not perceptible due to obese chest wall. Breath sounds are decreased over both lower lobes. The upper lobes are clear without any wheezing or crepitations. Cardio Palpation: normal PMI Rate: regular rate Rhythm: regular rhythm Heart sounds: no gallops and no murmurs GI Palpation (GI): Soft to palpation, nontender, No hepatosplenomegaly present, no masses and Other GI palpation findings present (Abdomen is extremely obese and pendulous.) Auscultation: normal bowel sounds Back/Spine/Pelvis Thoracic/Lumbar Spine: thoracic and lumbar spine normal to inspection and thoraco-lumbar ROM limited Skin General skin exam: no rashes or lesions noted Neuro General: patient oriented x3 and no focal motor deficits Cranial nerves: Yes CN's II-XII intact bilaterally Extrem Other: Patient has extremely obese lower extremities with stasis edema. General: Yes venous stasis dermatitis (HE HAS NUMEROUS SUPERFICIAL ULCERATIONS WITH SCAB FORMATION ON BOTH LEGS) Psych Appearance: grossly normal and well kempt Speech and movement: Normal speech and movement present Results Reviewed Results Reviewed: COMPLIANCE REPORT. IS REVIEWED FOR THE LAST 30 NIGHTS HE HAS USED 27/30 NIGHTS, 90%. AVERAGE USAGE 5 HOURS 42 MINUTES WHICH IS BETTER THAN EXPECTED. THERE IS NO SIGNIFICANT AIR LEAK. RESIDUAL AHI IS STILL 11.5 IN THE FORM OF OBSTRUCTIVE AND CENTRAL APNEAS Assessment & Plan Assessment & Plan (1) Morbid obesity: Comment: HAS HISTORY OF MORBID OBESITY WITH, STASIS EDEMA AND LYMPHEDEMA OF THE LOWER EXTREMITIES, THERE IS EVIDENCE OF LOSS OF 50 LB OF WEIGHT IN THE LAST 6 MONTHS. Code(s): E66.01 - Morbid (severe) obesity due to excess calories Category: Medical Plan: THE PATIENT IS ENCOURAGED TO WATCH HIS DIET AND KEEP ON LOSING WEIGHT SLOWLY (2) Restrictive lung disease: Comment: EXPECTED FROM HIS SUPER MORBID OBESITY HE DEFINITELY HAS RESTRICTIVE PULMONARY DISORDER. Code(s): J98.4 - Other disorders of lung Category: Medical Plan: ADVISED TO DO DEEP BREATHING EXERCISES AT LEAST 3 TO 4 TIMES A DAY (3) Bronchial asthma: Comment: He has diagnosis of mild intermittent bronchial asthma, which is not active at present. Code(s): J45.909 - Unspecified asthma, uncomplicated Category: Medical Plan: MAY USE ALBUTEROL HFA 2 PUFFS Q 6 HOURS P.R.N. IF NEED BE . (4) SHAYLA (obstructive sleep apnea): Comment: HE HAS PAST HISTORY OF OBSTRUCTIVE SLEEP APNEA., HAS NOT USE THE CPAP FOR QUITE A FEW YEARS. AFTER HOME-BASED SLEEP STUDY FOLLOWED BY IN SLEEP LAB CPAP TITRATION, PATIENT HAS BEEN STARTED ON BILEVEL CPAP WITH PRESSURE SETTING 23/13 CM USING FULLFACE MASK. HE IS SHOWING GOOD COMPLIANCE WITH BENEFITS. Code(s): G47.33 - Obstructive sleep apnea (adult) (pediatric) Category: Medical Plan: ADVISED TO CONTINUE USING THE BILEVEL CPAP EVERY NIGHT, USE FOR AT LEAST 6 HOURS EVERY NIGHT. HE IS VERY HAPPY WITH HIS CPAP DEVICE, AND IS WELL MOTIVATED TO USE IT. Coding Level of Care Code Est Pt Level 3 (57955) Diagnoses Morbid obesity E66.01 Restrictive lung disease J98.4 Bronchial asthma J45.909 SHAYLA (obstructive sleep apnea) G47.33
== END 2024-08-15 10:44 | disposition home or self-care (01) ==
LOC: HO.HPS 09:57
PROVIDERS: PCP Family Medicine; Visit Provider Internal Medicine
DX: E66.01 Morbid (severe) obesity due to excess calories (principal); J98.4 Other disorders of lung; J45.909 Unspecified asthma, uncomplicated; G47.33 Obstructive sleep apnea (adult) (pediatric)
CPT/HCPCS: 99213

== ENCOUNTER → 2024-08-15 09:56 | Outpatient (BNVA) | payer MEDICARE, MEDICAID, SELFPAY | PROVIDERS: PCP Family Medicine; Visit Provider Internal Medicine | DX: E66.01 Morbid (severe) obesity due to excess calories (principal); J98.4 Other disorders of lung; J45.909 Unspecified asthma, uncomplicated; G47.33 Obstructive sleep apnea (adult) (pediatric); Z68.43 Body mass index [BMI] 50.0-59.9, adult; Z99.89 Dependence on other enabling machines and devices; Z99.3 Dependence on wheelchair | CPT/HCPCS: 99212 ==

== ENCOUNTER 2024-08-21 13:19 | Outpatient (AMB) | payer MEDICARE, MEDICAID, SELFPAY ==
--- NOTE | 2024-08-21 13:29 | MHC.OFFVIS ---
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: No Accompanied by: Son Allergies cefaclor [From Ceclor] Allergy (Severe, Verified 08/15/24 10:42) hives epanolol Allergy (Severe, Verified 08/15/24 10:42) hives misoprostol Allergy (Severe, Verified 08/15/24 10:42) rash NSAIDS (Non-Steroidal Anti-Inflamma Allergy (Severe, Verified 08/15/24 10:42) GI upset Penicillins Allergy (Severe, Verified 08/15/24 10:42) hives, rash, itching Sulfa (Sulfonamide Antibiotics) Allergy (Severe, Verified 08/15/24 10:42) Hives Cephalosporins Allergy (Intermediate, Verified 08/15/24 10:42) hives amoxicillin Allergy (Mild, Verified 08/15/24 10:42) rash vancomycin Allergy (Mild, Verified 08/15/24 10:42) itching clindamycin Adverse Reaction (Intermediate, Verified 08/15/24 10:42) Rash Medication List - Last Reconciled 08/21/24 by Steven Ch MD apixaban 5 mg PO BID Bifidobacterium infantis (Align) 4 mg PO DAILY budesonide DR-ER 9 mg (3 x 3 mg) PO DAILY calcium carbonate-vitamin D3 600 mg-10 mcg (400 unit) 1 tab PO DAILY colesevelam 1,250 mg (2 x 625 mg) PO BID dapagliflozin propanediol (Farxiga) 5 mg PO DAILY diphenoxylate-atropine 2.5-0.025 mg/5 mL 5 mL PO QID PRN duloxetine 20 mg PO DAILY esomeprazole magnesium 40 mg PO DAILY ferrous sulfate 1 tab PO DAILY gabapentin 300 mg PO TID lorazepam 1 mg PO BEDTIME PRN montelukast 10 mg PO BEDTIME multivitamin with folic acid 400 mcg (Daily-Brent (with folic acid)) 1 tab PO DAILY nystatin topical BID oxybutynin chloride ER 15 mg PO DAILY oxycodone 5 mg PO Q6H PRN prednisolone acetate 1% drps ophthalmic (eye) rifaximin 550 mg PO TID 2 weeks sertraline 100 mg PO DAILY simethicone (Gas Relief (simethicone)) 125 mg PO BID-QID PRN sotalol 80 mg PO BID 90 days sucralfate 10 mL PO BID PRN tamsulosin 0.4 mg PO DAILY vibegron (Gemtesa) 75 mg PO DAILY zolpidem 10 mg PO BEDTIME HPI Comments Details: 58-year-old gentleman who was referred to us for episodes of paroxysmal atrial fibrillation. He has background history of morbid obesity status post bariatric surgery, DVT and pulmonary embolism with an IVC filter, hypertension and chronic lymphedema. It appears in 2019 he had palpitations which brought him to the emergency department and was diagnosed with atrial fibrillation. He was given metoprolol in the ER he reverted back to sinus rhythm. His Toprol-XL at that stage was increased from 50-75 mg and eventually to 100 mg. He was also started on lisinopril 5 mg for hypertension. He ran out of his medications a month ago and has not been taking lisinopril and Toprol. He is on Coumadin because of his previous DVT/pulmonary embolism and since he developed atrial fibrillation and this was continued. He continues to have morbid obesity and significant functional limitations due to arthritis and back issues. He gets short of breath when he exercises. He is denying any palpitations. He checks his INR at home and his Coumadin dose is adjusted by Dr. Trinidad. He had an echocardiogram in 2016 which showed normal left ventricular systolic function but there was septal flattening with RV pressure volume overload. Pulmonary artery systolic pressures were documented at 35-40 mm Hg at that time. He also had a dobutamine stress echo in April 2018 which did not show any evidence of ischemia or old CO. 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 We repeated his echocardiogram which showed normal biventricular function with mildly dilated ascending aorta. He had moderate pulmonary hypertension. He is returning for follow-up. He had IVC filter removed in [facility] and had IVC stenting done by Dr. Gaffney. He is saying since then his lower extremity edema has improved significantly but recently started noticing right foot edema and will be going back for repeat venogram in April. His blood pressure is elevated and he is taking lisinopril 10 mg once a day. He also has been experiencing some chest discomfort off and on. This happens at nighttime when he is laying down but also happens when he is walking on the treadmill. He is walking approximately 5-6 minutes on treadmill every day as part of weight loss program. He is status post bariatric surgery x 2. He underwent stress testing which did not show any perfusion defect. He also had Holter monitoring which showed episodes of atrial fibrillation. He does not feel any symptoms during atrial fibrillation. Otherwise doing well. Denying any significant chest discomfort shortness of breath. He was started on Multaq. During his follow-up in September 2022 he was in sinus rhythm. Subsequent to that he was seen in office in 2022 and his EKG in the office showing atrial flutter with variable block. Discussing with him he has no symptoms. In particular no palpitations, chest discomfort or worsening shortness of breath. He has been taking his Eliquis and Multaq regularly and he has not missed Eliquis in the last 4 weeks. 06/28/23: He is returning for follow-up. On last visit he was noticed to be in atrial fibrillation and was admitted to the hospital underwent cardioversion after stopping Multaq and was started on sotalol. He has been tolerating sotalol well. EKG in the office is showing sinus rhythm. No palpitations. He has dyspnea on exertion which is chronic due to morbid obesity. 06/14/2024: He is here for follow-up. He is saying that he got in rate to [facility] recently with congestive heart failure. We will get records from there. His EKGs showing atrial fibrillation currently with rate control. He is on sotalol 80 mg twice a day. He is on apixaban 5 mg twice a day. He is denying any symptoms. No palpitations or worsening dyspnea. 08/21/2024: He is here for follow-up. He had 1 episode of palpitations which woke him up approximately 1 month ago. He said he has been diagnosed with sleep apnea and has been using CPAP. No chest discomfort. No shortness of breath more than usual. Other than 1 episode of palpitation no further episodes of atrial fibrillation. [facility] Medical History Nocturnal hypoxemia Somnolence, daytime Loud snoring SHAYLA (obstructive sleep apnea) Paroxysmal A-fib Atrial flutter PAF (paroxysmal atrial fibrillation) On beta paty at home On anticoagulant therapy SHAYLA on CPAP Bronchial asthma Restrictive lung disease Migration of vascular stent Pulmonary embolus Family history of stent Uncomplicated opioid dependence Lymphedema Lumbar disc disease Venous stasis Hyperlipidemia Neurogenic bladder Dyspnea Lumbar disc prolapse with root compression History of kidney stones GERD (gastroesophageal reflux disease) OA (osteoarthritis) Morbid obesity Asthma Depression Essential hypertension Surgical History Hx of cervical spine surgery S/P IVC filter S/P appendectomy Hx of colonoscopy History of esophagogastroduodenoscopy (EGD) Hx of eye surgery Hx of gastric bypass Family History Mother Diabetes Father Brain cancer Sister Diabetes Sister Diabetes Sister Diabetes Brother Blind Brother No problems noted. Brother No problems noted. Brother No problems noted. Brother No problems noted. Daughter No problems noted. Daughter Mental health disorder Son Mental health disorder Son No problems noted. Son No problems noted. Social History (Updated 08/21/24 @ 13:35 by Shiloh Vanegas CMA) Household Members: Children Household Members Other:: - 5 kids Housing: House Are you a primary health care attorney to a significant other at home: No Do you presently have visiting nurse or other home services: Yes (FRATERNITY ADVISER that visits every 3 months) Alcohol intake: former Year quit: 1979 Comment: uses cane at times- knee gives out Patient Tobacco Use Status: Never used Tobacco Second Hand Smoke Exposure: No Advance Directives Date on File: 08/14/21 service: No Current occupational status: disabled Current occupation: rt handed Review of Systems Const Denies chills, Denies fatigue, Denies fever(s), Denies weight gain and Denies weight loss ENT Denies dizziness Card Denies chest pain, Denies leg edema, Denies lightheadedness, Denies palpitations, Denies dyspnea on exertion, Denies orthopnea and Denies other Resp Denies cough and Denies dyspnea on exertion GI Denies hematochezia and Denies change in stool character Musc Denies abnormal gait, Denies muscle weakness, Denies numbness, Denies radiating pain into limb and Denies tingling Neuro Denies abnormal gait, Denies dizziness, Denies numbness and Denies tingling Endo Denies fatigue and Denies palpitations Physical Exam Vital Signs: Last Vital Signs Pulse 54 08/21/24 13:30 BP 110/64 08/21/24 13:30 BMI result Body Mass Index 53.8 GENERAL APPEARANCE: in no acute distress, morbidly obese. NECK: no carotid bruit, no jugular venous distention. SKIN: Chronic lymphedema bilateral lower extremities. HEART: no murmurs, regular rate and rhythm. LUNGS: clear to auscultation bilaterally. ABDOMEN: soft, nontender. EXTREMITIES: Chronic lymphedema. PERIPHERAL PULSES: equal. NEUROLOGIC: No gross deficits, AAO X 3 Assessment & Plan Assessment & Plan (1) PAF (paroxysmal atrial fibrillation): Comment: Eliquis and Sotalol Code(s): I48.0 - Paroxysmal atrial fibrillation Category: Medical (2) Morbid obesity: Comment: HAS HISTORY OF MORBID OBESITY WITH, STASIS EDEMA AND LYMPHEDEMA OF THE LOWER EXTREMITIES, THERE IS EVIDENCE OF LOSS OF 50 LB OF WEIGHT IN THE LAST 6 MONTHS. Code(s): E66.01 - Morbid (severe) obesity due to excess calories Category: Medical (3) Current use of prepared foods service team member anticoagulation: Code(s): Z79.01 - [facility] (current) use of anticoagulants Category: Medical Plan 58-year-old gentleman presenting for follow-up. He has background history of morbid obesity and paroxysmal atrial fibrillation. He was at [facility] a year ago when he was started on sotalol. He did fine with that until recently when he presented to [facility] with congestive heart failure and was in atrial fibrillation. We did a Holter monitor on him for 5 days in 07/07/2024 and apparently he was in sinus rhythm. Continues to be in sinus rhythm at this point. He had 1 episode of palpitations lasting for 10-15 minutes approximately 1 month ago. He is now using CPAP for sleep apnea to which will help with episodes of atrial fibrillation. Overall he is stable. He will see us back in 4 months. Thank you for allowing me to participate in the care of your patient. Please feel free to contact me if you have any questions. Coding Level of Care Code Est Pt Level 4 (87472) Diagnoses PAF (paroxysmal atrial fibrillation) I48.0 Morbid obesity E66.01 Current use of prison anticoagulation Z79.01
[2024-08-21 13:30] VITALS: BP 110/64; PULSE 54; BMI 53.8
== END 2024-08-21 14:11 | disposition home or self-care (01) ==
LOC: HO.HCS 13:26
PROVIDERS: PCP Family Medicine; Visit Provider Internal Medicine Cardiovascular Disease
DX: I48.0 Paroxysmal atrial fibrillation (principal); E66.01 Morbid (severe) obesity due to excess calories; Z79.01 Long term (current) use of anticoagulants
CPT/HCPCS: 99214

== ENCOUNTER → 2024-08-21 13:19 | Outpatient (BNVA) | payer MEDICARE, MEDICAID, SELFPAY | PROVIDERS: PCP Family Medicine; Visit Provider Internal Medicine Cardiovascular Disease | DX: I48.0 Paroxysmal atrial fibrillation (principal); E66.01 Morbid (severe) obesity due to excess calories; Z79.01 Long term (current) use of anticoagulants; Z68.43 Body mass index [BMI] 50.0-59.9, adult | CPT/HCPCS: 99212 ==

== ENCOUNTER → 2024-09-11 10:04 | Outpatient (REF) | payer MEDICARE, MEDICAID, SELFPAY | LOC: HO.CARD 10:04 | PROVIDERS: PCP Family Medicine; Visit Provider Internal Medicine Cardiovascular Disease | DX: I48.0 Paroxysmal atrial fibrillation (principal) | CPT/HCPCS: 93246 ==

== ENCOUNTER → 2024-09-11 10:06 | Outpatient (BNV) | payer MEDICARE, MEDICAID, SELFPAY | PROVIDERS: PCP Family Medicine; Visit Provider Internal Medicine | DX: I48.91 Unspecified atrial fibrillation (principal) | CPT/HCPCS: 93248 ==

== ENCOUNTER 2024-09-26 11:24 | Outpatient (REF) | payer MEDICARE, SELFPAY ==
[2024-09-26 13:20] LABS: Appearance Urine Clear; Color Urine Yellow; Glucose Urine UA >=1000 mg/dL (Negative); Leukocyte Esterase Urine Small (1+) (Negative); Nitrite Urine Positive (Negative); UMIC TRIGGER UA YES; Urine Blood Trace (Negative); Urine Ketones Trace mg/dL (Negative); Urine Protein Negative (Neg-Trace)
[2024-09-26 13:24] LABS: Bacteria Urine 4+ (None Seen); Hyaline Casts Urine 0-2 /LPF (0-2); Squamous Epithelial Cell Urine 0-2 /HPF (0-2); WBC Urine 21-50 /HPF (0-5)
== END 2024-09-26 11:25 | disposition home or self-care (01) ==
LOC: HO.HMGCLDS 11:24
PROVIDERS: Visit Provider Urology
DX: N39.41 Urge incontinence (principal); R39.9 Unspecified symptoms and signs involving the genitourinary system; R35.0 Frequency of micturition
CPT/HCPCS: 81001; 87086; 87088; 87186

== ENCOUNTER → 2024-09-27 09:45 | Outpatient (BNVA) | payer MEDICARE, SELFPAY | PROVIDERS: PCP Family Medicine; Visit Provider Internal Medicine Cardiovascular Disease ==

== ENCOUNTER 2024-11-14 09:01 | Outpatient (AMB) | payer MEDICARE, MEDICAID, SELFPAY ==
[2024-11-14 09:08] VITALS: BP 110/84; PULSE 81; O2SAT 97; BMI 54.7
--- NOTE | 2024-11-14 09:08 | MHC.OFFVIS ---
Vital Signs 11/14/24 09:08 Height 5 ft 9 in Weight 370 lb 6.025 oz BMI 54.7 BP 110/84 Blood Pressure Location Rt radial Position Sitting Pulse 81 Pulse Source Pulse Oximeter Pulse Oximetry (%) 97 Oxygen Delivery Method Room Air Intake Visit Reasons: Obstructive sleep apnea Intake Note: pt is here for SHAYLA, has a new mask that he states is doing well Cigar Sorter Required: No Allergies cefaclor [From Ceclor] Allergy (Severe, Verified 11/14/24 09:19) hives epanolol Allergy (Severe, Verified 11/14/24 09:19) hives misoprostol Allergy (Severe, Verified 11/14/24 09:19) rash NSAIDS (Non-Steroidal Anti-Inflamma Allergy (Severe, Verified 11/14/24 09:19) GI upset Penicillins Allergy (Severe, Verified 11/14/24 09:19) hives, rash, itching Sulfa (Sulfonamide Antibiotics) Allergy (Severe, Verified 11/14/24 09:19) Hives Cephalosporins Allergy (Intermediate, Verified 11/14/24 09:19) hives amoxicillin Allergy (Mild, Verified 11/14/24 09:19) rash vancomycin Allergy (Mild, Verified 11/14/24 09:19) itching clindamycin Adverse Reaction (Intermediate, Verified 11/14/24 09:19) Rash Medication List - Last Reconciled 11/14/24 by Giancarlo Vincent MD apixaban 5 mg PO BID Bifidobacterium infantis (Align) 4 mg PO DAILY budesonide DR-ER 9 mg (3 x 3 mg) PO DAILY calcium carbonate-vitamin D3 600 mg-10 mcg (400 unit) 1 tab PO DAILY colesevelam 1,250 mg (2 x 625 mg) PO BID dapagliflozin propanediol (Farxiga) 5 mg PO DAILY diphenoxylate-atropine 2.5-0.025 mg/5 mL 5 mL PO QID PRN duloxetine 20 mg PO DAILY esomeprazole magnesium 40 mg PO DAILY ferrous sulfate 1 tab PO DAILY gabapentin 300 mg PO TID mawxum-awcbblaf-gsnoemp 24,000-76,000 -120,000 unit (Creon) 2 caps PO BID lorazepam 1 mg PO BEDTIME PRN montelukast 10 mg PO BEDTIME multivitamin with folic acid 400 mcg (Daily-Brent (with folic acid)) 1 tab PO DAILY nitrofurantoin monohyd/m-cryst 100 mg (Macrobid) 100 mg PO BID 10 days nitrofurantoin monohyd/m-cryst 100 mg (Macrobid) 100 mg PO BID 7 days nystatin topical BID oxybutynin chloride ER 15 mg PO DAILY oxycodone 5 mg PO Q6H PRN prednisolone acetate 1% drps ophthalmic (eye) rifaximin 550 mg PO TID 2 weeks sertraline 100 mg PO DAILY simethicone (Gas Relief (simethicone)) 125 mg PO BID-QID PRN sotalol 120 mg PO BID sucralfate 10 mL PO BID PRN tamsulosin 0.4 mg PO DAILY vibegron (Gemtesa) 75 mg PO DAILY zolpidem 10 mg PO BEDTIME Do you need a note to return to daycare/school/sports/work: No HPI HPI Obstructive sleep apnea: Details: 58 YEARS OLD GENTLEMAN WITH SUPER MORBID OBESITY, AND OBSTRUCTIVE SLEEP APNEA, ALONG WITH HIS MULTIPLE COMORBIDITIES, ALSO HAS MILD BRONCHIAL ASTHMA. HE COMES FOR FOLLOW-UP FOR HIS CPAP USAGE. WITH THE NEW FULLFACE MASK, HIS USAGE OF THE CPAP HAS DEFINITELY IMPROVED. HE USES AT LEAST FOR 5-6 HOURS EVERY NIGHT AND SLEEPS MUCH BETTER. .DENIES DAYTIME SLEEPINESS HE IS STARTING TO WALK MORE BUT STILL HAS TO USE THE WIDE WHEELCHAIR WHEN HE GOES OUTDOORS. NASAL CONGESTION AND BRONCHIAL ASTHMA HAVE REMAINED WELL CONTROLLED WEIGHT HAS NOT CHANGED MUCH. UNFORTUNATELY THE ANTI OBESITY INJECTIONS NOT COVERED BY HIS INSURANCE. [facility] Medical History Nocturnal hypoxemia Somnolence, daytime Loud snoring SHAYLA (obstructive sleep apnea) Paroxysmal A-fib Atrial flutter PAF (paroxysmal atrial fibrillation) On beta paty at home On anticoagulant therapy SHAYLA on CPAP Bronchial asthma Restrictive lung disease Migration of vascular stent Pulmonary embolus Family history of stent Uncomplicated opioid dependence Lymphedema Lumbar disc disease Venous stasis Hyperlipidemia Neurogenic bladder Dyspnea Lumbar disc prolapse with root compression History of kidney stones GERD (gastroesophageal reflux disease) OA (osteoarthritis) Morbid obesity Asthma Depression Essential hypertension Surgical History Hx of cervical spine surgery S/P IVC filter S/P appendectomy Hx of colonoscopy History of esophagogastroduodenoscopy (EGD) Hx of eye surgery Hx of gastric bypass Family History Mother Diabetes Father Brain cancer Sister Diabetes Sister Diabetes Sister Diabetes Brother Blind Brother No problems noted. Brother No problems noted. Brother No problems noted. Brother No problems noted. Daughter No problems noted. Daughter Mental health disorder Son Mental health disorder Son No problems noted. Son No problems noted. Social History Household Members: Children Household Members Other:: - 5 kids Housing: House Are you a primary long term care social worker to a significant other at home: No Do you presently have visiting nurse or other home services: Yes (ANESTHESIOLOGIST ASSISTANT CERTIFIED that visits every 3 months) Alcohol intake: former Year quit: 1979 Comment: uses cane at times- knee gives out Patient Tobacco Use Status: Never used Tobacco Second Hand Smoke Exposure: No Advance Directives Date on File: 08/14/21 service: No Current occupational status: disabled Current occupation: rt handed Review of Systems Const All systems reviewed & are unremarkable except as noted in HPI and below Eyes Reports no additional complaints ENT Reports no additional complaints Card Denies chest pain and Denies irregular heart rhythm (History of atrial fib but controlled) Resp Reports as per HPI GI Reports constipation and Reports heartburn (GERD symptoms being controlled with omeprazole) Reports nocturia (BPH symptoms) Musc Reports back pain and Reports arthralgias Skin/Breast Reports system reviewed and no additional complaints, except as documented Neuro Reports no additional complaints Psych Reports depression (Controlled with med) Endo Reports no additional complaints Physical Exam Vital Signs: Last Vital Signs Pulse 81 11/14/24 09:08 BP 110/84 11/14/24 09:08 Pulse Ox 97 11/14/24 09:08 Oxygen Delivery Method Room Air 11/14/24 09:08 BMI result Body Mass Index 54.7 This gentleman is extremely obese, his obesity is mainly abdominal and of the lower extremities. Const General: comfortable, no acute distress, alert and awake Orientation/consciousness: patient oriented x3 HEENT Other: Oropharynx is narrow with Mallampati class 4 Head: Yes normal to inspection General nose exam: No nasal polyps present and No nasal discharge present Face and sinus: Yes sinuses nontender Mouth: oropharynx normal Throat: Yes posterior oropharynx normal Eyes General: appearance normal, both eyes and all related structures Neck Neck: Yes normal visual inspection, Yes no lymphadenopathy, Yes trachea midline and Yes no JVD Thyroid: Thyroid normal Chest Chest palpation & inspection: normal inspection of the chest, normal palpation of entire chest wall and no tenderness Resp Other: Percussion note is not perceptible due to obese chest wall. Breath sounds are decreased over both lower lobes. The upper lobes are clear without any wheezing or crepitations. Cardio Palpation: normal PMI Rate: regular rate Rhythm: regular rhythm Heart sounds: no gallops and no murmurs GI Palpation (GI): Soft to palpation, nontender, No hepatosplenomegaly present, no masses and Other GI palpation findings present (Abdomen is extremely obese and pendulous.) Auscultation: normal bowel sounds Back/Spine/Pelvis Thoracic/Lumbar Spine: thoracic and lumbar spine normal to inspection and thoraco-lumbar ROM limited Skin General skin exam: no rashes or lesions noted Neuro General: patient oriented x3 and no focal motor deficits Cranial nerves: Yes CN's II-XII intact bilaterally Extrem Other: Patient has extremely obese lower extremities with stasis edema. General: Yes venous stasis dermatitis (HE HAS NUMEROUS SUPERFICIAL ULCERATIONS WITH SCAB FORMATION ON BOTH LEGS) Psych Appearance: grossly normal and well kempt Speech and movement: Normal speech and movement present Results Reviewed Results Reviewed: COMPLIANCE REPORT IS REVIEWED AND HE HAS USED 26/30 NIGHTS, 87%. AVERAGE USE IT PER. NIGHT 4 HOURS 54 MINUTES PRESSURE SETTING IS 23/13 CM ( BIPAP) RESIDUAL AHI STILL 5.4. Assessment & Plan Assessment & Plan (1) Morbid obesity: Comment: HAS HISTORY OF MORBID OBESITY WITH, STASIS EDEMA AND LYMPHEDEMA OF THE LOWER EXTREMITIES, INITIALLY HE HAD LOST ABOUT 60 LB OF WEIGHT MAINLY DUE TO DECREASE IN THE PERIPHERAL EDEMA. NOW IT IS AT A STANDS STILL. Code(s): E66.01 - Morbid (severe) obesity due to excess calories Category: Medical Plan: AGAIN DISCUSSED WITH HIM ABOUT WEIGHT LOSS PROGRAM. HE IS NOT ABLE TO JOIN ANY WEIGHT MANAGEMENT PROGRAM. ALSO HE IS NOT ABLE TO START ANTI OBESITY MEDS, DUE TO INSURANCE NON COVERAGE. (2) SHAYLA (obstructive sleep apnea): Comment: HE HAS PAST HISTORY OF OBSTRUCTIVE SLEEP APNEA., HE HAD NOT BEEN ABLE TO USE THE CPAP FOR QUITE A FEW YEARS. AFTER HOME-BASED SLEEP STUDY FOLLOWED BY IN SLEEP LAB CPAP TITRATION, PATIENT HAS BEEN STARTED ON BILEVEL CPAP WITH PRESSURE SETTING 23/13 CM THAT STARTED ON BIPAP THERAPY. NOW WITH THE NEW FACE MASK HE FEELS MORE COMFORTABLE AND IS USING CPAP MORE REGULARLY. HE IS DEFINITELY SLEEPING BETTER AND DENIES DAYTIME SLEEPINESS Code(s): G47.33 - Obstructive sleep apnea (adult) (pediatric) Category: Medical Plan: COMMENDED FOR GOOD COMPLIANCE AND ENCOURAGED TO KEEP ON USING THE BIPAP EVERY NIGHT FOR 5-6 HOURS PER NIGHT. (3) Bronchial asthma: Comment: He has diagnosis of mild intermittent bronchial asthma, which is not active at present. Code(s): J45.909 - Unspecified asthma, uncomplicated Category: Medical Plan: ALBUTEROL HFA 2 PUFFS Q 6 HRS ONLY P.R.N.. HE ALSO USES MONTELUKAST 10 MG ONCE A DAY. Coding Level of Care Code Est Pt Level 3 (37955) Diagnoses Morbid obesity E66.01 SHAYLA (obstructive sleep apnea) G47.33 Bronchial asthma J45.909
--- OUTSIDE RECORDS SUMMARY | 2024-11-14 09:26 | XMS_ITS | Encounter Summary ---
Author Organization [facility] Address [address] [place] [address] Care Team Providers Care Deicer Element Winder Machine Name Role Phone Damion Maynard MD Primary Care Provider U Destiny Dewey MD Primary Care Provider [phone] Encounter Details Date Type Department Care Team (Late st Contact Info) Description 08/19/2016 Telephone [facility] General Vascular Surgery [address] [facility] [address] [place] [id number] Shira Meyers NP Social History Tobacco Use Types Packs/Day Years Used Date Smoking Tobacco: Never Alcohol Use Standard Drinks/Week Comments Not Asked 0 (1 standard drink = 0.6 oz pur e alcohol) Sex and Gender Information Value Date Recorded Sex Assigned at Not on file Legal Sex Male 10:22 AM EDT Gender Identity Not on file Sexual Orientation Not on file documented as of this encounter Plan of Treatment Not on file documented as of this encounter Visit Diagnoses Not on filedocumented in this encounter Care Teams Deicer Element Winder Machine Relationship Specialty Start Date End Date Damion Maynard MD PCP - General Family Medicine 05/20/16 12/21/17 Destiny Trinidad MD [facility] [address] [place] [address] PCP - General Family Medicine 12/22/17 documented as of this encounter
--- OUTSIDE RECORDS SUMMARY | 2024-11-14 09:26 | XMS_ITS | Continuity of Care Document ---
Author Organization [facility] Address [address] [place] [address] Care Team Providers Care Identification And Records Commander Name Role Phone Destiny Trinidad MD Primary Care Provider [phone] Encounters Date Type Department Care Team Description 03/05/2021 Travel 03/05/2021 11:15 AM EDT Office Visit [facility] [address] [place] [phone] Stacey Barber NP Chronic ulcer of right leg, limited to breakdown of skin (HCC) (Primary Dx) 02/25/2021 Travel 02/25/2021 11:20 AM EDT Office Visit [facility] [address] [place] [phone] Stacey Barber NP Chronic ulcer of right leg, limited to breakdown of skin (HCC) (Primary Dx) 02/17/2021 Travel 02/17/2021 11:45 AM EDT Office Visit [facility] [address] [place] [phone] Stacey Barber NP Chronic ulcer of right leg, limited to breakdown of skin (HCC) (Primary Dx) 02/11/2021 Travel 02/11/2021 12:30 PM EDT Office Visit [facility] [address] [place] [phone] Stacey Barber NP Chronic ulcer of right leg, limited to breakdown of skin (HCC) (Primary Dx) 02/04/2021 Travel 02/04/2021 10:45 AM EDT Office Visit [facility] [address] [facility] [address] [place] [address] Stacey Barber NP Chronic ulcer of right leg, limited to breakdown of skin (HCC) (Primary Dx) 01/29/2021 Travel 01/29/2021 9:00 AM EDT Office Visit [facility] [address] [facility] [address] [place] [address] Stacey Barber NP Chronic ulcer of right leg, limited to breakdown of skin (HCC) (Primary Dx) 01/21/2021 Travel 01/21/2021 1:00 PM EDT Office Visit [facility] [address] [place] [address] [address] [place] [address] Stacey Barber NP Chronic ulcer of right leg, limited to breakdown of skin (HCC) (Primary Dx) 01/14/2021 Travel 01/14/2021 1:00 PM EDT Office Visit [facility] [address] [facility] [address] [place] [address] Stacey Barber NP Chronic ulcer of right leg, limited to breakdown of skin (HCC) (Primary Dx) 01/08/2021 11:15 AM EDT Office Visit [facility] [address] [facility] [address] [place] [address] Stacey Barber NP Chronic ulcer of left leg, limited to breakdown of skin (HCC) (Primary Dx) 01/03/2021 Travel 01/03/2021 11:00 AM EDT Office Visit [facility] [address] [place] [address] [address] [place] [address] Shira Meyers NP Ulcer of right lower extremity, unspecified ulcer stage (HCC) (Primary Dx); Lymphedema; Encounter for change or removal of nonsurgical wound dressing 12/24/2020 Travel 12/24/2020 1:00 PM EST Office Visit [facility] [address] [facility] [address] [place] [address] Stacey Barber NP Chronic ulcer of lower extremity, right, with unspecified severity (HCC) (Primary Dx) 12/10/2020 Travel 12/10/2020 1:15 PM EST Office Visit [facility] [address] [facility] [address] [place] [address] Stacey Barber NP Ulcer of right lower extremity, unspecified ulcer stage (HCC) (Primary Dx) 12/05/2020 Travel 12/05/2020 1:00 PM EST Office Visit [facility] [address] [address] Joshua Hendrix MD Chronic ulcer of lower extremity, right, with unspecified severity (HCC) (Primary Dx) 11/21/2020 Travel 11/21/2020 1:00 PM EST Office Visit [facility] [address] [address] Satcey Barber NP Chronic ulcer of lower extremity, right, with unspecified severity (HCC) (Primary Dx); Venous stasis of lower extremity 11/12/2020 Travel 11/12/2020 1:00 PM EST Office Visit [facility] [address] [address] Stacey Barber NP Ulcer of right lower extremity, unspecified ulcer stage (HCC) (Primary Dx) 10/29/2020 Travel 10/29/2020 2:40 PM EST Office Visit [facility] [address] [facility] [address] [place] [address] Shira Meyers NP Ulcer of right lower extremity, unspecified ulcer stage (HCC) (Primary Dx); Lymphedema 03/04/2020 Telephone [facility] [address] [facility] [address] [place] [address] St Shira Snow NP No Show 03/04/2020 Telephone [facility] [address] [facility] [address] [place] [address] St Shira Snow, ASSISTANT FITNESS MANAGER Equipment/supplies 01/05/2020 9:20 AM EDT Office Visit [facility] [address] [facility] [address] [place] [address] St OnShira meyer, ASSISTANT FITNESS MANAGER Ulcer of right lower extremity, unspecified ulcer stage (HCC) (Primary Dx); Lymphedema 12/29/2019 Travel 12/29/2019 9:40 AM EDT Office Visit [facility] [address] [place] [phone] St Shira Snow, ASSISTANT FITNESS MANAGER Ulcer of right lower extremity, unspecified ulcer stage (HCC) (Primary Dx); Ulcer of left lower extremity, unspecified ulcer stage 12/22/2019 9:20 AM EST Nurse Visit [facility] [address] [address] Shashank Shetty LPN Edema, unspecified type (Primary Dx); Encounter for change or removal of nonsurgical wound dressing 12/15/2019 8:40 AM EST Office Visit [facility] [address] [address] [address] OnShira meyer, ASSISTANT FITNESS MANAGER Ulcer of right lower extremity, unspecified ulcer stage (HCC) (Primary Dx); Ulcer of left lower extremity, unspecified ulcer stage; Lymphedema of both lower extremities 12/06/2019 9:00 AM EST Office Visit [facility] [address] [address] St OnShira meyer, ASSISTANT FITNESS MANAGER Ulcer of right lower extremity, unspecified ulcer stage (HCC) (Primary Dx); Ulcer of left lower extremity, unspecified ulcer stage; Lymphedema of both lower extremities 11/29/2019 8:40 AM EST Office Visit [facility] [address] [facility] [address] [place] [address] [address] Onge, Shira, ASSISTANT FITNESS MANAGER Ulcer of right lower extremity, unspecified ulcer stage (HCC) (Primary Dx); Ulcer of left lower extremity, unspecified ulcer stage; Lymphedema of both lower extremities 11/22/2019 8:40 AM EST Office Visit [facility] [address] [facility] [address] [place] [address] [address] Onge, Shira, ASSISTANT FITNESS MANAGER Ulcer of right lower extremity, unspecified ulcer stage (HCC) (Primary Dx); Ulcer of left lower extremity, unspecified ulcer stage; Lymphedema of both lower extremities 11/15/2019 8:40 AM EST Office Visit [facility] [address] [facility] [address] [place] [address] [address] Onge, Shira, ASSISTANT FITNESS MANAGER Ulcer of right lower extremity, unspecified ulcer stage (HCC) (Primary Dx); Ulcer of left lower extremity, unspecified ulcer stage; Lymphedema of both lower extremities 11/08/2019 8:40 AM EST Office Visit [facility] [address] [facility] [address] [place] [address] [address] Onge, Shira, ASSISTANT FITNESS MANAGER Ulcer of right lower extremity, unspecified ulcer stage (HCC) (Primary Dx); Ulcer of left lower extremity, unspecified ulcer stage 11/01/2019 8:00 AM EST Office Visit [facility] [address] [facility] [address] [place] [address] [address] Onge, Shira, ASSISTANT FITNESS MANAGER Ulcer of right lower extremity, unspecified ulcer stage (HCC) (Primary Dx) 10/27/2019 8:40 AM EST Office Visit [facility] [address] [facility] [address] [place] [address] [address] Onge, Shira, ASSISTANT FITNESS MANAGER Ulcer of right lower extremity, unspecified ulcer stage (HCC) (Primary Dx); Lymphedema of both lower extremities 10/20/2019 2:00 PM EST Nurse Visit [facility] [address] [facility] [address] [place] [address] Orville Gandhi LPN Edema, unspecified type (Primary Dx); Encounter for change or removal of nonsurgical wound dressing 10/12/2019 10:00 AM EST Office Visit [facility] [address] [facility] [address] [place] [address] Joshua Hendrix MD Venous stasis of lower extremity (Primary Dx) 10/06/2019 11:00 AM EST Office Visit [facility] [address] [facility] [address] [place] [address] St OnShira meyer, ASSISTANT FITNESS MANAGER Ulcer of right lower extremity, unspecified ulcer stage (HCC) (Primary Dx) 10/04/2019 Telephone [facility] [address] [facility] [address] [place] [address] Joshua Hendrix MD Post Op (wound care) 09/29/2019 Surgery/Major Procedure [facility] [address] [facility] [address] [place] [address] Joshua Hendrix MD 09/19/2019 2:20 PM EST Office Visit [facility] [address] [facility] [address] [place] [address] St OnShira meyer, ASSISTANT FITNESS MANAGER Ulcer of right lower extremity, unspecified ulcer stage (HCC) (Primary Dx); Lymphedema of both lower extremities 09/07/2019 Pre-Op FAM PRAC UNSPECIFIED Provider, Unknown 09/05/2019 10:00 AM EST Consult (Initial) [facility] [address] [facility] [address] [place] [address] Joshua Hendrix MD Venous stasis of lower extremity (Primary Dx) 08/30/2019 9:20 AM EST Office Visit [facility] [address] [facility] [address] [place] [address] St Onge Shira, ASSISTANT FITNESS MANAGER Ulcer of right lower extremity, unspecified ulcer stage (HCC) (Primary Dx); Lymphedema of both lower extremities 08/23/2019 9:20 AM EST Office Visit [facility] [address] [facility] [address] [place] [address] [address] Onge, Shira, ASSISTANT FITNESS MANAGER Ulcer of right lower extremity, unspecified ulcer stage (HCC) (Primary Dx); Lymphedema of both lower extremities 08/16/2019 9:20 AM EDT Office Visit [facility] [address] [place] [address] [address] [place] [address] [address] Onge, Shira, ASSISTANT FITNESS MANAGER Ulcer of right lower extremity, unspecified ulcer stage (HCC) (Primary Dx); Lymphedema of both lower extremities 08/09/2019 8:40 AM EDT Office Visit [facility] [address] [place] [address] [address] [place] [address] [address] Onge, Shira, ASSISTANT FITNESS MANAGER Ulcer of right lower extremity, unspecified ulcer stage (HCC) (Primary Dx); Lymphedema of both lower extremities 08/02/2019 9:20 AM EDT Office Visit [facility] [address] [place] [address] [address] Onge, Shira, ASSISTANT FITNESS MANAGER Ulcer of right lower extremity, unspecified ulcer stage (HCC) (Primary Dx); Lymphedema of both lower extremities 07/25/2019 9:00 AM EDT Office Visit [facility] [address] [place] [address] Nav Staples MD Varicose veins of left lower extremity with pain (Primary Dx); Venous stasis ulcer of calf with bone involvement without evidence of necrosis with varicose veins, unspecified laterality (HCC); Varicose veins of right lower extremity with ulcer of calf with fat layer exposed (HCC) 07/20/2019 9:00 AM EDT Nurse Visit [facility] [address] [place] [phone] Orville Gandhi LPN Edema, unspecified type (Primary Dx); Encounter for change or removal of nonsurgical wound dressing 07/14/2019 9:20 AM EDT Nurse Visit [facility] [address] [facility] [address] [place] [address] Shashank Shetty, EVENING OR NIGHT NURSE SUPERVISOR Edema, unspecified type (Primary Dx); Encounter for change or removal of nonsurgical wound dressing 07/07/2019 9:40 AM EDT Office Visit [facility] [address] [facility] [address] [place] [address] Shira Meyers NP Ulcer of right lower extremity, unspecified ulcer stage (HCC) (Primary Dx); Lymphedema of both lower extremities 07/04/2019 9:00 AM EDT Office Visit [facility] [address] [facility] [address] [place] [address] Shira Meyers NP Ulcer of right lower extremity, unspecified ulcer stage (HCC) (Primary Dx); Lymphedema of both lower extremities 06/27/2019 Telephone [facility] [address] [facility] [address] [place] [address] Shira Meyers NP Discussion With Provider; Wound Care 04/17/2019 9:20 AM EDT Nurse Visit [facility] [address] [facility] [address] [place] [address] Lymphedema (Primary Dx) 04/10/2019 9:20 AM EDT Office Visit [facility] [address] [facility] [address] [place] [address] Nolvia Elkins NP Lymphedema of both lower extremities (Primary Dx); Ulcer of right lower extremity, unspecified ulcer stage (HCC) 04/05/2019 8:30 AM EDT Office Visit [facility] [address] [facility] [address] [place] [address] Theo Martinez MD Lymphedema of both lower extremities (Primary Dx); Venous ulcer (HCC) 03/29/2019 9:15 AM EDT Office Visit [facility] [address] [facility] [address] [place] [address] Nav Amato MD Trigger finger, right ring finger (Primary Dx) 03/21/2019 10:45 AM EDT Office Visit [facility] [address] [place] [phone] Renae Turner PA S/P trigger finger release (Primary Dx); Tenosynovitis of finger 11/18/2018 8:00 AM EST Office Visit [facility] [address] [place] [phone] Jeffery Manuel NP Trigger ring finger of left hand (Primary Dx) 11/08/2018 8:00 AM EST Minor Procedure/Test [facility] [address] [place] [phone] Nav Amato MD Trigger ring finger of left hand (Primary Dx) 10/10/2018 9:15 AM EST Office Visit [facility] [address] [place] [phone] Renae Turner PA S/P trigger finger release (Primary Dx); Visit for suture removal; Trigger finger, left ring finger 09/27/2018 9:00 AM EST Minor Procedure/Test [facility] [address] [place] [phone] Nav Amato MD Trigger finger, right ring finger (Primary Dx) 09/19/2018 3:45 PM EST Consult (Initial) [facility] [address] [place] [address] Ivan Rueda MD Lumbar facet arthropathy (Primary Dx); Spinal stenosis of lumbar region with neurogenic claudication 08/29/2018 4:00 PM EST Consult (Initial) [facility] [address] [place] [phone] Renae Turner PA Trigger finger, right ring finger (Primary Dx) 08/15/2018 11:00 AM EDT Consult (Initial) [facility] [address] [facility] [address] [place] [address] Savage Jara MD Spinal stenosis of lumbar region with neurogenic claudication (Primary Dx); Facet arthritis of lumbar region (HCC); Foraminal stenosis of lumbar region; Low back pain of over 3 months duration; Lumbosacral stenosis with neurogenic claudication (HCC); BMI 50.0-59.9, adult ([facility]) 06/01/2018 9:40 AM EDT Office Visit [facility] [address] [facility] [address] [place] [address] St Onge Shira, ASSISTANT FITNESS MANAGER Lymphedema of both lower extremities (Primary Dx); Ulcers of both lower legs, limited to breakdown of skin (HCC) 05/25/2018 9:40 AM EDT Office Visit [facility] [address] [facility] [address] [place] [address] [address] OngeShira, ASSISTANT FITNESS MANAGER Ulcer of left lower extremity, unspecified ulcer stage (Primary Dx); Lymphedema of both lower extremities 05/18/2018 9:00 AM EDT Nurse Visit [facility] [address] [facility] [address] [place] [address] Shashank Shetty, EVENING OR NIGHT NURSE SUPERVISOR Edema, unspecified type (Primary Dx); Encounter for change or removal of nonsurgical wound dressing 05/11/2018 9:00 AM EDT Office Visit [facility] [address] [facility] [address] [place] [address] [address] Onge, Shira, ASSISTANT FITNESS MANAGER Lymphedema of both lower extremities (Primary Dx); Ulcers of both lower legs, limited to breakdown of skin (HCC) 05/04/2018 9:00 AM EDT Nurse Visit [facility] [address] [facility] [address] [place] [address] Orville Gandhi, EVENING OR NIGHT NURSE SUPERVISOR Edema, unspecified type (Primary Dx); Encounter for change or removal of nonsurgical wound dressing 04/27/2018 9:40 AM EDT Nurse Visit [facility] [address] [facility] [address] [place] [address] Shetty, Shashank, EVENING OR NIGHT NURSE SUPERVISOR Edema, unspecified type (Primary Dx); Encounter for change or removal of nonsurgical wound dressing 04/13/2018 9:00 AM EDT Office Visit [facility] [address] [facility] [address] [place] [address] [address] Onge, Shira, ASSISTANT FITNESS MANAGER Ulcers of both lower legs, limited to breakdown of skin (HCC) (Primary Dx); Lymphedema of both lower extremities 04/13/2018 11:40 AM EDT Minor Procedure/Test [facility] [phone] Roger Johnson DPM Atherosclerosis of [place] artery of both lower extremities, with unspecified presence of clinical manifestation (Primary Dx); Onychomycosis; Pain of toes of both feet 04/06/2018 9:40 AM EDT Office Visit [facility] [address] [place] [address] [address] [place] [address] [address] OnShira meyer, ASSISTANT FITNESS MANAGER Lymphedema of both lower extremities (Primary Dx); Ulcers of both lower legs, limited to breakdown of skin (HCC) 03/30/2018 9:00 AM EDT Nurse Visit [facility] [address] [place] [address] Shetty, Shashank, EVENING OR NIGHT NURSE SUPERVISOR Edema, unspecified type (Primary Dx); Encounter for change or removal of nonsurgical wound dressing 03/23/2018 9:00 AM EDT Nurse Visit [facility] [address] [place] [address] Shetty, Shashank, EVENING OR NIGHT NURSE SUPERVISOR Edema, unspecified type (Primary Dx); Encounter for change or removal of nonsurgical wound dressing 03/16/2018 9:00 AM EDT Nurse Visit [facility] [address] [place] [phone] Shetty, Shashank, EVENING OR NIGHT NURSE SUPERVISOR Edema, unspecified type (Primary Dx); Encounter for change or removal of nonsurgical wound dressing 03/02/2018 9:00 AM EDT Nurse Visit [facility] [address] [facility] [address] [place] [address] Orville Gandhi LPN Edema, unspecified type (Primary Dx); Encounter for change or removal of nonsurgical wound dressing 02/23/2018 9:20 AM EDT Nurse Visit [facility] [address] [facility] [address] [place] [address] [address] Onge, Shira, ASSISTANT FITNESS MANAGER Ulcers of both lower legs, limited to breakdown of skin (HCC) (Primary Dx); Lymphedema 02/18/2018 10:20 AM EDT Office Visit [facility] [address] [facility] [address] [place] [address] [address] Onge, Shira, ASSISTANT FITNESS MANAGER Ulcers of both lower legs, limited to breakdown of skin (HCC) (Primary Dx); Lymphedema 01/19/2018 9:30 AM EDT Nurse Visit [facility] [address] [facility] [address] [place] [address] Orville Gandhi LPN Edema, unspecified type (Primary Dx); Encounter for change or removal of nonsurgical wound dressing 01/12/2018 9:00 AM EDT Office Visit [facility] [address] [address] [address] Onge, Shira, ASSISTANT FITNESS MANAGER Ulcers of both lower legs, limited to breakdown of skin (HCC) (Primary Dx); Lymphedema of both lower extremities 01/05/2018 9:00 AM EDT Office Visit [facility] [address] [facility] [address] [place] [address] [address] Onge, Shira, ASSISTANT FITNESS MANAGER Ulcers of both lower legs, limited to breakdown of skin (HCC) (Primary Dx); Lymphedema 12/31/2017 11:20 AM EDT Nurse Visit [facility] [address] [facility] [address] [place] [address] Edema, unspecified type (Primary Dx); Encounter for change or removal of nonsurgical wound dressing 12/22/2017 9:00 AM EST Office Visit [facility] [address] [facility] [address] [place] [address] [address] Onge, Shira, ASSISTANT FITNESS MANAGER Ulcers of both lower legs, limited to breakdown of skin (HCC) (Primary Dx); Lymphedema 2017 8:20 AM EST Office Visit [facility] [address] [place] [address] [address] [place] [address] [address] Onge, Shira, ASSISTANT FITNESS MANAGER Ulcers of both lower legs, limited to breakdown of skin (HCC) (Primary Dx); Lymphedema 12/08/2017 9:00 AM EST Office Visit [facility] [address] [place] [phone] St Onge, Shira, ASSISTANT FITNESS MANAGER Ulcers of both lower legs, limited to breakdown of skin (HCC) (Primary Dx); Lymphedema 12/01/2017 9:00 AM EST Nurse Visit [facility] [address] [place] [phone] Jolene Castellano LPN Edema, unspecified type (Primary Dx); Encounter for change or removal of nonsurgical wound dressing 11/24/2017 9:00 AM EST Nurse Visit [facility] [address] [place] [phone] Orville Gandhi LPN Edema, unspecified type (Primary Dx); Encounter for change or removal of nonsurgical wound dressing 11/17/2017 9:00 AM EST Nurse Visit [facility] [address] [place] [phone] Orville Gandhi LPN Edema, unspecified type (Primary Dx); Encounter for change or removal of nonsurgical wound dressing 11/10/2017 9:00 AM EST Nurse Visit [facility] [address] [place] [phone] Gandhi, Orville, EVENING OR NIGHT NURSE SUPERVISOR Edema, unspecified type (Primary Dx); Encounter for change or removal of nonsurgical wound dressing 11/02/2017 9:00 AM EST Nurse Visit [facility] [address] [place] [address] [address] [place] [address] Orville Gandhi LPN Edema, unspecified type (Primary Dx); Encounter for change or removal of nonsurgical wound dressing 10/27/2017 10:40 AM EST Office Visit [facility] [address] [place] [address] [address] [place] [address] St Shira Snow, ASSISTANT FITNESS MANAGER Ulcers of both lower legs, limited to breakdown of skin (HCC) (Primary Dx); Lymphedema 10/22/2017 1:00 PM EST Nurse Visit [facility] [address] [place] [phone] Orville Gandhi LPN Edema, unspecified type (Primary Dx); Encounter for change or removal of nonsurgical wound dressing 10/19/2017 9:00 AM EST Nurse Visit [facility] [address] [place] [phone] Jolene Castellano EVENING OR NIGHT NURSE SUPERVISOR Edema, unspecified type (Primary Dx); Encounter for change or removal of nonsurgical wound dressing 10/15/2017 9:00 AM EST Nurse Visit [facility] [address] [place] [phone] Orville Gandhi LPN Edema, unspecified type (Primary Dx); Encounter for change or removal of nonsurgical wound dressing 10/12/2017 9:00 AM EST Nurse Visit [facility] [address] [place] [phone] Orville Gandhi LPN Edema, unspecified type (Primary Dx); Encounter for change or removal of nonsurgical wound dressing 10/07/2017 9:00 AM EST Office Visit [facility] [address] [place] [phone] St Shira Snow, ASSISTANT FITNESS MANAGER Ulcers of both lower legs, limited to breakdown of skin (HCC) (Primary Dx); Lymphedema 10/05/2017 Telephone [facility] [address] [place] [phone] Shira Meyers NP Appointment 09/17/2017 8:40 AM EST Office Visit [facility] [address] [place] [phone] Shira Meyers NP Ulcer of left lower extremity, unspecified ulcer stage (Primary Dx); Ulcer of right lower extremity, unspecified ulcer stage (HCC); Lymphedema 09/08/2017 9:40 AM EST Nurse Visit [facility] [address] [place] [phone] Orville Gandhi EVENING OR NIGHT NURSE SUPERVISOR Edema, unspecified type (Primary Dx); Encounter for change or removal of nonsurgical wound dressing 09/03/2017 1:20 PM EST Office Visit [facility] [address] [place] [phone] Shira Meyers NP Ulcers of both lower legs, limited to breakdown of skin (HCC) (Primary Dx); Lymphedema 06/28/2017 9:00 AM EDT Office Visit [facility] [address] [place] [phone] Shira Meyers NP Ulcer of lower extremity, left, with unspecified severity (Primary Dx); Ulcer of lower extremity, right, with unspecified severity (HCC); Lymphedema 06/15/2017 Telephone [facility] [address] [place] [phone] Shira Meyers NP Wound Care; Equipment/supplies 06/14/2017 9:00 AM EDT Nurse Visit [facility] [address] [place] [phone] Jolene Castellano, EVENING OR NIGHT NURSE SUPERVISOR Edema, unspecified type (Primary Dx); Encounter for change or removal of nonsurgical wound dressing 06/11/2017 9:00 AM EDT Nurse Visit [facility] [address] [facility] [address] [place] [address] Edema, unspecified type (Primary Dx); Encounter for change or removal of nonsurgical wound dressing 06/09/2017 10:00 AM EDT Nurse Visit [facility] [address] [facility] [address] [place] [address] Edema, unspecified type (Primary Dx); Encounter for change or removal of nonsurgical wound dressing 06/07/2017 9:00 AM EDT Nurse Visit [facility] [address] [facility] [address] [place] [address] Jolene Castellano EVENING OR NIGHT NURSE SUPERVISOR Edema, unspecified type (Primary Dx); Encounter for change or removal of nonsurgical wound dressing 06/02/2017 8:40 AM EDT Office Visit [facility] [address] [facility] [address] [place] [address] St Onge, Shira, ASSISTANT FITNESS MANAGER Ulcers of both lower legs, limited to breakdown of skin (HCC) (Primary Dx); Lymphedema; Chronic venous insufficiency 05/12/2017 9:20 AM EDT Office Visit [facility] [address] [facility] [address] [place] [address] [address] Onge, Shira, ASSISTANT FITNESS MANAGER Ulcer of lower extremity, left, with unspecified severity (Primary Dx); Ulcer of lower extremity, right, with unspecified severity (HCC); Venous stasis of lower extremity; Lymphedema 05/05/2017 9:20 AM EDT Office Visit [facility] [address] [facility] [address] [place] [address] [address] Onge, Shira, ASSISTANT FITNESS MANAGER Ulcers of both lower legs, limited to breakdown of skin (HCC) (Primary Dx); Lymphedema 04/28/2017 9:20 AM EDT Office Visit [facility] [address] [facility] [address] [place] [address] St Onge, Shira, ASSISTANT FITNESS MANAGER Lymphedema (Primary Dx); Ulcers of both lower legs, limited to breakdown of skin (HCC) 04/22/2017 8:40 AM EDT Office Visit [facility] [address] [facility] [address] [place] [address] [address] Onge, Shira, ASSISTANT FITNESS MANAGER Lymphedema (Primary Dx); Ulcer of lower extremity, left, with unspecified severity; Ulcer of lower extremity, right, with unspecified severity 04/14/2017 9:20 AM EDT Office Visit [facility] [address] [facility] [address] [place] [address] [address] Onge, Shira, ASSISTANT FITNESS MANAGER Lymphedema (Primary Dx); Ulcers of both lower legs, limited to breakdown of skin (HCC); Venous stasis of lower extremity 04/07/2017 9:20 AM EDT Office Visit [facility] [address] [facility] [address] [place] [address] [address] Onge, Shira, ASSISTANT FITNESS MANAGER Lymphedema (Primary Dx); Ulcer of lower extremity, left, with unspecified severity; Ulcer of lower extremity, right, with unspecified severity 03/31/2017 8:00 AM EDT Office Visit [facility] [address] [facility] [address] [place] [address] [address] Onge, Shira, ASSISTANT FITNESS MANAGER Lymphedema (Primary Dx); Ulcers of both lower legs, limited to breakdown of skin (HCC); Morbid obesity due to excess calories 03/30/2017 Telephone [facility] [address] [facility] [address] [place] [address] St Onge, Shira, ASSISTANT FITNESS MANAGER Unna Boot Application 03/19/2017 Telephone [facility] [address] [facility] [address] [place] [address] St Onge, Shira, ASSISTANT FITNESS MANAGER No Show 02/23/2017 Telephone [facility] [address] [facility] [address] [place] [address] [address] Onge, Shira, ASSISTANT FITNESS MANAGER Unna Boot Application 02/20/2017 Office Visit NON FC SA NON FC UNK [facility], Unknown Provider 02/18/2017 Consult (Initial) NON FC [facility] [address] [place] [address] Juanjose Watson MD 02/17/2017 [facility] NON FC [facility] [address] [place] [address] Tamika Lomax MD 02/17/2017 8:00 AM EDT Office Visit [facility] [address] [facility] [address] [place] [address] St Onge, Shira, ASSISTANT FITNESS MANAGER Cellulitis of right lower extremity (Primary Dx) 02/16/2017 Telephone [facility] [address] [place] [phone] St Onge, Shira, ASSISTANT FITNESS MANAGER Appointment (tomorrow); Unna Boot Application 02/08/2017 10:20 AM EDT Office Visit [facility] [address] [address] St Onge, Shira, ASSISTANT FITNESS MANAGER Lymphedema (Primary Dx); Ulcer of lower extremity, left, with unspecified severity 02/01/2017 8:20 AM EDT Office Visit [facility] [address] [address] St Onge, Shira, ASSISTANT FITNESS MANAGER Lymphedema (Primary Dx); Ulcer of lower extremity, left, with unspecified severity; Venous stasis of lower extremity 01/28/2017 8:20 AM EDT Office Visit [facility] [address] [address] St Onge, Shira, ASSISTANT FITNESS MANAGER Lymphedema (Primary Dx); Ulcer of lower extremity, left, with unspecified severity 01/25/2017 1:20 PM EDT Office Visit [facility] [address] [address] St Onge, Shira, ASSISTANT FITNESS MANAGER Lymphedema (Primary Dx); Ulcer of lower extremity, left, with unspecified severity; Ulcer of lower extremity, right, with unspecified severity 01/21/2017 2:30 PM EDT Nurse Visit [facility] [address] [place] [address] [address] [place] [address] Stinehart, Anabel, EVENING OR NIGHT NURSE SUPERVISOR Ulcers of both lower legs (Primary Dx); Edema, unspecified type; Encounter for change or removal of nonsurgical wound dressing 01/18/2017 8:20 AM EDT Office Visit [facility] [address] [place] [address] [address] [place] [address] St Onge, Shira, ASSISTANT FITNESS MANAGER Lymphedema (Primary Dx); Ulcer of lower extremity, left, with unspecified severity; Ulcer of lower extremity, right, with unspecified severity 01/14/2017 8:20 AM EDT Office Visit [facility] [address] [place] [phone] St Onge, Shira, ASSISTANT FITNESS MANAGER Lymphedema (Primary Dx); Ulcer of lower extremity, left, with unspecified severity; Ulcer of lower extremity, right, with unspecified severity; Venous stasis of lower extremity 01/11/2017 11:00 AM EDT Nurse Visit [facility] [address] [place] [phone] Stinehart, Anabel, EVENING OR NIGHT NURSE SUPERVISOR Edema, unspecified type (Primary Dx); Encounter for change or removal of nonsurgical wound dressing 01/06/2017 9:00 AM EDT Office Visit [facility] [address] [place] [phone] St Onge, Shira, ASSISTANT FITNESS MANAGER Lymphedema (Primary Dx); Ulcer of lower extremity, left, with unspecified severity; Ulcer of lower extremity, right, with unspecified severity 12/30/2016 9:00 AM EDT Office Visit [facility] [address] [place] [phone] St Onge, Shira, ASSISTANT FITNESS MANAGER Lymphedema (Primary Dx); Ulcer of lower extremity, left, with unspecified severity; Ulcer of lower extremity, right, with unspecified severity 12/23/2016 9:00 AM EST Office Visit [facility] [address] [place] [address] [address] [place] [address] St Onge, Shira, ASSISTANT FITNESS MANAGER Lymphedema (Primary Dx); Ulcer of lower extremity, left, with unspecified severity; Ulcer of lower extremity, right, with unspecified severity 12/16/2016 1:20 PM EST Office Visit [facility] [address] [place] [address] [address] [place] [address] St Onge, Shira, ASSISTANT FITNESS MANAGER Ulcer of lower extremity, right, with unspecified severity (Primary Dx); Lymphedema; Ulcer of lower extremity, left, with unspecified severity 12/09/2016 9:00 AM EST Office Visit [facility] [address] [place] [address] [address] [place] [address] St Onge, Shira, ASSISTANT FITNESS MANAGER Ulcer of lower extremity, right, with unspecified severity (Primary Dx); Lymphedema; Ulcer of lower extremity, left, with unspecified severity 12/02/2016 10:00 AM EST Office Visit [facility] [address] [place] [address] St Onge, Shira, ASSISTANT FITNESS MANAGER Ulcer of lower extremity, right, with unspecified severity (Primary Dx); Lymphedema; Ulcer of lower extremity, left, with unspecified severity 11/25/2016 11:00 AM EST Office Visit [facility] [address] [place] [address] St Onge, Shira, ASSISTANT FITNESS MANAGER Lymphedema (Primary Dx); Ulcer of lower extremity, left, with unspecified severity [L97.929]; Ulcer of lower extremity, right, with unspecified severity [L97.919] 11/25/2016 8:00 AM EST Minor Procedure/Test [facility] [address] [place] [phone] Roger Johnson DPM Onychomycosis (Primary Dx); Pain in toes of both feet [M79.674, M79.675] 11/19/2016 8:20 AM EST Office Visit [facility] [address] [facility] [address] [place] [address] [address] Onge, Shira, ASSISTANT FITNESS MANAGER Lymphedema (Primary Dx); Ulcer of lower extremity, left, with unspecified severity [L97.929]; Ulcer of lower extremity, right, with unspecified severity [L97.919]; Venous stasis of lower extremity 11/11/2016 9:00 AM EST Office Visit [facility] [address] [facility] [address] [place] [address] St Onge, Shira, ASSISTANT FITNESS MANAGER Lymphedema (Primary Dx); Ulcer of lower extremity, left, with unspecified severity [L97.929]; Ulcer of lower extremity, right, with unspecified severity [L97.919] 11/04/2016 9:00 AM EST Office Visit [facility] [address] [place] [address] [address] [place] [address] St Onge, Shira, ASSISTANT FITNESS MANAGER Lymphedema (Primary Dx); Ulcer of lower extremity, left, with unspecified severity [L97.929]; Ulcer of lower extremity, right, with unspecified severity [L97.919] 10/28/2016 9:20 AM EST Office Visit [facility] [address] [facility] [address] [place] [address] St Onge, Shira, ASSISTANT FITNESS MANAGER Lymphedema (Primary Dx); Ulcer of lower extremity, left, with unspecified severity [L97.929]; Ulcer of lower extremity, right, with unspecified severity [L97.919]; Chronic venous insufficiency 10/21/2016 10:40 AM EST Office Visit [facility] [address] [facility] [address] [place] [address] St Onge, Shira, ASSISTANT FITNESS MANAGER Ulcer of lower extremity, left, with unspecified severity [L97.929] (Primary Dx); Ulcer of lower extremity, right, with unspecified severity [L97.919]; Venous stasis of lower extremity 10/14/2016 8:20 AM EST Office Visit [facility] [address] [facility] [address] [place] [address] [address] Onge, Shira, ASSISTANT FITNESS MANAGER Lymphedema (Primary Dx); Ulcer of lower extremity, left, with unspecified severity [L97.929]; Ulcer of lower extremity, right, with unspecified severity [L97.919] 10/07/2016 9:00 AM EST Office Visit [facility] [address] [facility] [address] [place] [address] St Onge, Shira, ASSISTANT FITNESS MANAGER Ulcer of lower extremity, left, with unspecified severity [L97.929] (Primary Dx); Ulcer of lower extremity, right, with unspecified severity [L97.919]; Venous stasis of lower extremity 09/30/2016 9:15 AM EST Nurse Visit [facility] [address] [place] [address] [address] [place] [address] Anabel Springer LPN Ulcers of both lower legs (Primary Dx); Edema, unspecified type [R60.9]; Encounter for change or removal of nonsurgical wound dressing 09/06/2016 [facility] [address] [place] [address] Jennifer Gibbons MD 09/02/2016 8:40 AM EST Office Visit [facility] [address] [place] [phone] St Onge Shira, ASSISTANT FITNESS MANAGER Lymphedema (Primary Dx); Leg ulcer, left, with unspecified severity; Ulcer of lower extremity, right, with unspecified severity [L97.919] 08/27/2016 8:20 AM EST Office Visit [facility] [address] [facility] [address] [place] [address] St Onge Shira, ASSISTANT FITNESS MANAGER Lymphedema (Primary Dx); Ulcer of lower extremity, left, with unspecified severity [L97.929]; Ulcer of lower extremity, right, with unspecified severity [L97.919] 08/19/2016 Telephone [facility] [address] [place] [address] [address] [place] [address] Shira Meyers ASSISTANT FITNESS MANAGER 08/19/2016 8:40 AM EDT Office Visit [facility] [address] [facility] [address] [place] [address] Shira Meyers NP Lymphedema (Primary Dx); Ulcer of lower extremity, left, with unspecified severity [L97.929]; Ulcer of lower extremity, right, with unspecified severity [L97.919] 08/05/2016 9:15 AM EDT Nurse Visit [facility] [address] [facility] [address] [place] [address] Stinehart, Anabel, EVENING OR NIGHT NURSE SUPERVISOR Bilateral leg ulcer, with unspecified severity (Primary Dx); Edema, unspecified type [R60.9]; Encounter for change or removal of nonsurgical wound dressing 07/29/2016 8:40 AM EDT Office Visit [facility] [address] [facility] [address] [place] [address] Shira Meyers NP Ulcer of lower extremity, left, with unspecified severity [L97.929] (Primary Dx); Ulcer of lower extremity, right, with unspecified severity [L97.919]; Lymphedema 07/15/2016 9:00 AM EDT Nurse Visit [facility] [address] [place] [address] Stinehart, Anabel, EVENING OR NIGHT NURSE SUPERVISOR Edema, unspecified type [R60.9] (Primary Dx); Encounter for change or removal of nonsurgical wound dressing; Bilateral leg ulcer, with unspecified severity 07/08/2016 9:00 AM EDT Nurse Visit [facility] [address] [place] [address] [address] [place] [address] Stinehart, Anabel, EVENING OR NIGHT NURSE SUPERVISOR Edema, unspecified type [R60.9] (Primary Dx); Encounter for change or removal of nonsurgical wound dressing 07/01/2016 9:00 AM EDT Nurse Visit [facility] [address] [facility] [address] [place] [address] Stinehart, Anabel, EVENING OR NIGHT NURSE SUPERVISOR Edema, unspecified type [R60.9] (Primary Dx); Encounter for change or removal of nonsurgical wound dressing; Bilateral leg ulcer, with unspecified severity 06/24/2016 9:00 AM EDT Nurse Visit [facility] [address] [facility] [address] [place] [address] Essie Fuller, LICENSED MORTICIAN Edema, unspecified type [R60.9] (Primary Dx); Encounter for change or removal of nonsurgical wound dressing; Ulcer of calf, unspecified laterality, with unspecified severity (HCC) [L97.209] 06/17/2016 9:20 AM EDT Office Visit [facility] [address] [facility] [address] [place] [address] Shira Meyers NP Ulcer of lower extremity, left, with unspecified severity (HCC) [L97.929] (Primary Dx); Ulcer of lower extremity, right, with unspecified severity (HCC) [L97.919]; Chronic venous insufficiency 06/10/2016 9:00 AM EDT Nurse Visit [facility] [address] [facility] [address] [place] [address] Stinehart, Anabel, EVENING OR NIGHT NURSE SUPERVISOR Ulcers of both lower extremities (HCC) (Primary Dx); Edema, unspecified type [R60.9]; Encounter for change or removal of nonsurgical wound dressing 06/03/2016 9:00 AM EDT Nurse Visit [facility] [address] [facility] [address] [place] [address] Stinehart, Anabel, EVENING OR NIGHT NURSE SUPERVISOR Edema, unspecified type [R60.9] (Primary Dx); Encounter for change or removal of nonsurgical wound dressing; Ulcer of lower extremity, unspecified laterality, with unspecified severity 05/27/2016 9:00 AM EDT Nurse Visit [facility] [address] [facility] [address] [place] [address] Stinehart, Anabel, EVENING OR NIGHT NURSE SUPERVISOR Edema, unspecified type [R60.9] (Primary Dx); Encounter for change or removal of nonsurgical wound dressing; Ulcers of both lower extremities (HCC) 05/20/2016 10:20 AM EDT Office Visit [facility] [address] [facility] [address] [place] [address] St Onge, Shira, ASSISTANT FITNESS MANAGER Ulcer of lower extremity, left, with unspecified severity (HCC) [L97.929] (Primary Dx); Ulcer of lower extremity, right, with unspecified severity (HCC) [L97.919]; Edema, unspecified type [R60.9]; Venous stasis of lower extremity 05/06/2016 8:40 AM EDT Nurse Visit [facility] [address] [facility] [address] [place] [address] St Onge, Shira, ASSISTANT FITNESS MANAGER Ulcer of lower extremity, left, with unspecified severity (HCC) [L97.929] (Primary Dx); Ulcer of lower extremity, right, with unspecified severity (HCC) [L97.919]; Venous stasis of lower extremity 04/29/2016 8:30 AM EDT Nurse Visit [facility] [address] [facility] [address] [place] [address] Stinehart, Anabel, EVENING OR NIGHT NURSE SUPERVISOR Ulcers of both lower extremities (HCC) (Primary Dx); Edema, unspecified type [R60.9]; Encounter for change or removal of nonsurgical wound dressing 04/22/2016 9:00 AM EDT Nurse Visit [facility] [address] [facility] [address] [place] [address] Stinehart, Anabel, EVENING OR NIGHT NURSE SUPERVISOR Edema, unspecified type [R60.9] (Primary Dx); Encounter for change or removal of nonsurgical wound dressing 04/15/2016 9:00 AM EDT Office Visit [facility] [address] [facility] [address] [place] [address] St Onge, Shira, ASSISTANT FITNESS MANAGER Ulcer of lower extremity, left, with unspecified severity (HCC) [L97.929] (Primary Dx); Venous stasis of lower extremity 04/09/2016 2:30 PM EDT Nurse Visit [facility] [address] [facility] [address] [place] [address] Stinehart, Anabel, EVENING OR NIGHT NURSE SUPERVISOR Edema, unspecified type [R60.9] (Primary Dx); Encounter for change or removal of nonsurgical wound dressing 04/02/2016 9:15 AM EDT Nurse Visit [facility] [address] [facility] [address] [place] [address] Stinehart, Anabel, EVENING OR NIGHT NURSE SUPERVISOR Bilateral leg ulcer, with unspecified severity (Primary Dx); Edema, unspecified type [R60.9]; Encounter for change or removal of nonsurgical wound dressing 03/18/2016 8:30 AM EDT Nurse Visit [facility] [address] [place] [address] [address] [place] [address] Stinehart, Anabel, EVENING OR NIGHT NURSE SUPERVISOR Edema, unspecified type [R60.9] (Primary Dx); Encounter for change or removal of nonsurgical wound dressing 03/12/2016 Telephone [facility] [address] [place] [address] Tamika Lomax MD Results 03/12/2016 2:00 PM EDT Office Visit [facility] [address] [place] [phone] Tamika Lomax MD Bilateral leg ulcer, limited to breakdown of skin (HCC) (Primary Dx); Presence of IVC filter 03/11/2016 8:20 AM EDT Office Visit [facility] [address] [place] [phone] St OnShira meyer NP Lymphedema (Primary Dx); Ulcer of lower extremity, left, with unspecified severity (HCC) [L97.929]; Ulcer of lower extremity, right, with unspecified severity (HCC) [L97.919] 03/05/2016 8:20 AM EDT Office Visit [facility] [address] [facility] [address] [place] [address] St Onge, Shira, ASSISTANT FITNESS MANAGER Lymphedema (Primary Dx); Ulcer of lower extremity, left, with unspecified severity (HCC) [L97.929]; Ulcer of lower extremity, right, with unspecified severity (HCC) [L97.919] 02/26/2016 3:00 PM EDT Office Visit [facility] [address] [facility] [address] [place] [address] St Onge, Shira, ASSISTANT FITNESS MANAGER Ulcer of lower extremity, left, with unspecified severity (HCC) [L97.929] (Primary Dx); Ulcer of lower extremity, right, with unspecified severity (HCC) [L97.919]; Lymphedema 02/13/2016 2:15 PM EDT Office Visit [facility] [address] [address] Tamika Lomax MD Venous stasis dermatitis of both lower extremities (Primary Dx) 02/06/2016 Telephone [facility] [address] [place] [phone] Roger Johnson DPM FYAric 01/15/2016 8:20 AM EDT Office Visit [facility] [address] [facility] [address] [place] [address] [address] Onge, Shira, ASSISTANT FITNESS MANAGER Lymphedema (Primary Dx); Ulcer of lower extremity, left, with unspecified severity (HCC) [L97.929] 01/09/2016 8:20 AM EDT Office Visit [facility] [address] [facility] [address] [place] [address] [address] Onge, Shira, ASSISTANT FITNESS MANAGER Ulcer of lower extremity, left, with unspecified severity (HCC) [L97.929] (Primary Dx); Ulcer of lower extremity, right, with unspecified severity (HCC) [L97.919]; Lymphedema; Chronic venous insufficiency 2015 8:30 AM EST Nurse Visit [facility] [address] [facility] [address] [place] [address] Stinehart, Anabel, EVENING OR NIGHT NURSE SUPERVISOR Ulcer of lower extremity, unspecified laterality, with unspecified severity (Primary Dx); Edema, unspecified type [R60.9]; Encounter for change or removal of nonsurgical wound dressing 12/10/2015 8:00 AM EST Office Visit [facility] [address] [facility] [address] [place] [address] St Shira Snow NP Lymphedema (Primary Dx); Ulcer of lower extremity, left, with unspecified severity (HCC) [L97.929]; Venous stasis of lower extremity 11/04/2015 10:00 AM EST Nurse Visit [facility] [address] [place] [address] [address] [place] [address] Stinehart, Anabel, EVENING OR NIGHT NURSE SUPERVISOR Edema, unspecified type [R60.9] (Primary Dx); Encounter for change or removal of nonsurgical wound dressing 11/01/2015 9:15 AM EST Nurse Visit [facility] [address] [place] [phone] Stinehart, Anabel, EVENING OR NIGHT NURSE SUPERVISOR Encounter for change or removal of nonsurgical wound dressing (Primary Dx); Ulcer of lower extremity, unspecified laterality, with unspecified severity 10/31/2015 11:20 AM EST Office Visit [facility] [address] [place] [address] Roger Johnson DPM Atherosclerosis of [place] artery of both lower extremities, with unspecified presence of clinical manifestation (HCC) [I70.203] (Primary Dx); Onychomycosis; Pain of toes of both feet 10/28/2015 9:15 AM EST Nurse Visit [facility] [address] [place] [phone] Stinehart, Anabel, EVENING OR NIGHT NURSE SUPERVISOR Ulcer of lower extremity, unspecified laterality, with unspecified severity (Primary Dx); Encounter for change or removal of nonsurgical wound dressing 10/24/2015 9:00 AM EST Office Visit [facility] [address] [facility] [address] [place] [address] [address] Onbetsy Shira, ASSISTANT FITNESS MANAGER Ulcer of lower extremity, right, with unspecified severity (HCC) [L97.919] (Primary Dx); Chronic venous insufficiency; Venous stasis of lower extremity; Morbid obesity, unspecified obesity type (HCC) [E66.01]; Ulcer of lower extremity, left, with unspecified severity (HCC) [L97.929] 10/14/2015 8:30 AM EST Nurse Visit [facility] [address] [place] [phone] Anabel Springer, EVENING OR NIGHT NURSE SUPERVISOR Leg ulcer, unspecified laterality, with unspecified severity (Primary Dx); Generalized edema [R60.1]; Encounter for change or removal of nonsurgical wound dressing 10/03/2015 8:45 AM EST Nurse Visit [facility] [address] [place] [address] [address] [place] [address] Anabel Springer, EVENING OR NIGHT NURSE SUPERVISOR Non-pressure ulcer of lower extremity, unspecified laterality, with unspecified severity (HCC) (Primary Dx); Generalized edema [R60.1]; Encounter for change or removal of nonsurgical wound dressing 09/26/2015 8:20 AM EST Office Visit [facility] [address] [facility] [address] [place] [address] [address] RolandoShira meyer, ASSISTANT FITNESS MANAGER Ulcer of lower extremity, left, with unspecified severity (HCC) [L97.929] (Primary Dx); Ulcer of lower extremity, right, with unspecified severity (HCC) [L97.919]; Edema, due to unspecified malnutrition type, unspecified edema; Morbid obesity, unspecified obesity type (HCC) [E66.01] 09/19/2015 8:30 AM EST Nurse Visit [facility] [address] [facility] [address] [place] [address] Stinehart, Anabel, EVENING OR NIGHT NURSE SUPERVISOR Ulcer of lower extremity, unspecified laterality, with unspecified severity (Primary Dx); Generalized edema [R60.1]; Encounter for change or removal of nonsurgical wound dressing 09/06/2015 9:45 AM EST Nurse Visit [facility] [address] [facility] [address] [place] [address] Stinehart, Anabel, EVENING OR NIGHT NURSE SUPERVISOR Ulcers of both lower extremities (HCC) (Primary Dx); Edema, unspecified edema [R60.9]; Encounter for change or removal of nonsurgical wound dressing 08/29/2015 8:20 AM EST Office Visit [facility] [address] [facility] [address] [place] [address] [address] OnShira meyer, ASSISTANT FITNESS MANAGER Ulcer of lower extremity, left, with unspecified severity (HCC) [L97.929] (Primary Dx); Ulcer of lower extremity, right, with unspecified severity (HCC) [L97.919]; Venous stasis of lower extremity; Morbid obesity, unspecified obesity type (HCC) [E66.01] 08/22/2015 8:30 AM EST Nurse Visit [facility] [address] [facility] [address] [place] [address] Stinehart, Anabel, EVENING OR NIGHT NURSE SUPERVISOR Edema, unspecified edema [R60.9] (Primary Dx); Encounter for change or removal of nonsurgical wound dressing 08/15/2015 8:30 AM EDT Nurse Visit [facility] [address] [facility] [address] [place] [address] Stinehart, Anabel, EVENING OR NIGHT NURSE SUPERVISOR Generalized edema [R60.1] (Primary Dx); Encounter for change or removal of nonsurgical wound dressing 08/08/2015 8:45 AM EDT Nurse Visit [facility] [address] [facility] [address] [place] [address] Stinehart, Anabel, EVENING OR NIGHT NURSE SUPERVISOR 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); Varicose veins of left lower extremity with inflammation; Edema, unspecified edema [R60.9]; Encounter for change or removal of nonsurgical wound dressing 08/01/2015 8:20 AM EDT Office Visit [facility] [address] [facility] [address] [place] [address] Shira Meyers NP Venous stasis dermatitis of both lower extremities [I83.11, I83.12] (Primary Dx); Morbid obesity, unspecified obesity type (HCC) [E66.01]; Ulcer of lower extremity, right, with unspecified severity (HCC) [L97.919]; Venous stasis of lower extremity 07/26/2015 10:30 AM EDT Nurse Visit [facility] [address] [facility] [address] [place] [address] Stinehart, Anabel, EVENING OR NIGHT NURSE SUPERVISOR Edema, unspecified edema [R60.9] (Primary Dx); Encounter for change or removal of nonsurgical wound dressing 07/08/2015 11:00 AM EDT Nurse Visit [facility] [address] [facility] [address] [place] [address] Stinehart, Anabel, EVENING OR NIGHT NURSE SUPERVISOR Ulcers of both lower extremities (HCC) (Primary Dx); Generalized edema [782.3]; Encounter for change or removal of nonsurgical wound dressing 07/08/2015 Telephone [facility] [address] [facility] [address] [place] [address] Shira Meyers NP Unna Boot Application 06/28/2015 2:45 PM EDT Nurse Visit [facility] [address] [facility] [address] [place] [address] Stinehart, Anabel, EVENING OR NIGHT NURSE SUPERVISOR Ulcers of both lower extremities (HCC) (Primary Dx); Encounter for change or removal of nonsurgical wound dressing 06/21/2015 10:00 AM EDT Nurse Visit [facility] [address] [facility] [address] [place] [address] Stinehart, Anabel, EVENING OR NIGHT NURSE SUPERVISOR Ulcer of lower extremity, unspecified laterality, with unspecified severity (Primary Dx); Edema; Encounter for change or removal of nonsurgical wound dressing 06/11/2015 9:45 AM EDT Nurse Visit [facility] [address] [facility] [address] [place] [address] Spenser Avilesa, EVENING OR NIGHT NURSE SUPERVISOR Edema (Primary Dx); Encounter for change or removal of nonsurgical wound dressing; Ulcer of calf, unspecified laterality, with unspecified severity (HCC) [707.12] 06/05/2015 9:15 AM EDT Nurse Visit [facility] [address] [place] [address] [address] [place] [address] Angela Aviles, EVENING OR NIGHT NURSE SUPERVISOR Edema (Primary Dx); Encounter for change or removal of nonsurgical wound dressing; Ulcer of calf, unspecified laterality, with unspecified severity (HCC) [707.12] 05/30/2015 10:20 AM EDT Office Visit [facility] [address] [place] [phone] Shira Meyers, AZRA Morbid obesity (Primary Dx); Ulcer of lower extremity, right, with unspecified severity (HCC) [707.10]; Ulcer of lower extremity, left, with unspecified severity (HCC) [707.10]; Chronic venous insufficiency; Venous stasis of lower extremity 03/15/2015 8:40 AM EDT Office Visit [facility] [address] [place] [address] St Shira Snow, ASSISTANT FITNESS MANAGER Edema (Primary Dx); Ulcers of both lower legs 03/08/2015 9:00 AM EDT Nurse Visit [facility] [address] [place] [address] [address] [place] [address] Spenser Avilesa, EVENING OR NIGHT NURSE SUPERVISOR Edema (Primary Dx); Encounter for change or removal of nonsurgical wound dressing; Ulcer of calf, unspecified laterality, with unspecified severity (HCC) [707.12]; Ulcer of ankle, unspecified laterality, with unspecified severity (HCC) [707.13] 03/04/2015 8:45 AM EDT Nurse Visit [facility] [address] [facility] [address] [place] [address] Angela Aviles, EVENING OR NIGHT NURSE SUPERVISOR Edema (Primary Dx); Encounter for change or removal of nonsurgical wound dressing 02/22/2015 9:00 AM EDT Nurse Visit [facility] [address] [facility] [address] [place] [address] Angela Aviles, EVENING OR NIGHT NURSE SUPERVISOR Edema (Primary Dx); Encounter for change or removal of nonsurgical wound dressing 02/15/2015 8:40 AM EDT Office Visit [facility] [address] [facility] [address] [place] [address] [address] OnShira meyer, AZRA Edema (Primary Dx); Ulcer of lower extremity, right, with unspecified severity (HCC) [707.10]; Venous stasis of lower extremity 02/05/2015 2:00 PM EDT Nurse Visit [facility] [address] [facility] [address] [place] [address] Beba Parker LPN Ulcer of lower limb (Primary Dx); Edema; Encounter for change or removal of nonsurgical wound dressing 02/05/2015 Telephone [facility] [address] [facility] [address] [place] [address] [address] OngeShira, ASSISTANT FITNESS MANAGER Edema 12/28/2014 8:20 AM EDT Office Visit [facility] [address] [facility] [address] [place] [address] [address] OngeShira, ASSISTANT FITNESS MANAGER Edema (Primary Dx); Ulcer of lower extremity (HCC); Venous stasis of lower extremity 12/21/2014 9:15 AM EST Nurse Visit [facility] [address] [facility] [address] [place] [address] Essie Fuller LVN LPN Edema (Primary Dx); Encounter for change or removal of nonsurgical wound dressing; Ulcer of calf (HCC) 12/14/2014 8:30 AM EST Nurse Visit [facility] [address] [facility] [address] [place] [address] Parker, Yalissa, EVENING OR NIGHT NURSE SUPERVISOR Edema (Primary Dx); Encounter for change or removal of nonsurgical wound dressing 12/07/2014 8:20 AM EST Office Visit [facility] [address] [address] Shira Meyers NP Ulcer of lower extremity (HCC) (Primary Dx); Venous stasis of lower extremity 12/03/2014 9:00 AM EST Nurse Visit [facility] [address] [place] [address] Stinehart, Anabel, EVENING OR NIGHT NURSE SUPERVISOR Edema (Primary Dx); Encounter for change or removal of nonsurgical wound dressing 11/23/2014 9:00 AM EST Nurse Visit [facility] [address] [place] [phone] Parker, Yalissa, EVENING OR NIGHT NURSE SUPERVISOR Edema (Primary Dx); Encounter for change or removal of nonsurgical wound dressing 11/16/2014 9:00 AM EST Nurse Visit [facility] [address] [place] [address] Stinehart, Anabel, EVENING OR NIGHT NURSE SUPERVISOR Edema (Primary Dx); Encounter for change or removal of nonsurgical wound dressing 11/15/[address] [facility] [address] [place] [phone] Roger Johnson DPM FYAric 11/09/2014 8:40 AM EST Office Visit [facility] [address] [place] [phone] Shira Meyers NP Ulcer of lower extremity (HCC) (Primary Dx); Venous stasis of lower extremity 08/22/2014 3:30 PM EST Minor Procedure/Test [facility] [address] [place] [address] Roger Johnson, LANCE Type II diabetes mellitus with peripheral circulatory disorder (Primary Dx); Onychomycosis; Peripheral angiopathy in diseases classified elsewhere; Pain in limb 08/09/2014 Telephone [facility] [address] [facility] [address] [place] [address] Shira Meyers NP Patient Questions ; Equipment/supplies 08/09/2014 8:20 AM EDT Office Visit [facility] [address] [facility] [address] [place] [address] Shira Meyers NP Lymphedema (Primary Dx); Ulcer of lower extremity (HCC); Chronic venous insufficiency 07/26/2014 8:20 AM EDT Office Visit [facility] [address] [facility] [address] [place] [address] Shira Meyers NP Ulcer of lower extremity (HCC) (Primary Dx); Chronic venous insufficiency; Morbid obesity; Venous stasis of lower extremity 07/25/2014 Telephone [facility] [address] [facility] [address] [place] [address] Tamika Lomax MD Wound Care; Equipment/supplies 07/20/2014 10:00 AM EDT Office Visit [facility] [address] [facility] [address] [place] [address] Tamika Lomax MD Venous stasis dermatitis (Primary Dx); Venous ulcer of leg (HCC) 05/31/2014 8:40 AM EDT Office Visit [facility] [address] [facility] [address] [place] [address] Shira Meyers NP Ulcer of lower extremity (HCC) (Primary Dx); Chronic venous insufficiency 05/04/2014 Telephone [facility] [address] [facility] [address] [place] [address] Shira Meyers NP No Show 03/29/2014 10:00 AM EDT Office Visit [facility] [address] [facility] [address] [place] [address] St Shira Snow NP Morbid obesity (Primary Dx); Ulcer of lower extremity (HCC); Venous stasis of lower extremity 02/26/2014 10:00 AM EDT Office Visit [facility] [address] [facility] [address] [place] [address] St OnShira meyer NP Ulcer of lower extremity (HCC) (Primary Dx); Venous stasis of lower extremity 01/29/2014 1:20 PM EDT Office Visit [facility] [address] [facility] [address] [place] [address] St Shira Snow NP Ulcer of lower extremity (HCC) (Primary Dx); Venous stasis of lower extremity; Morbid obesity 01/23/2014 11:00 AM EDT Office Visit [facility] [address] [facility] [address] [place] [address] St Shira Snow NP Edema (Primary Dx); Morbid obesity; Ulcer of lower extremity (HCC); Venous stasis of lower extremity 01/16/2014 11:00 AM EDT Office Visit [facility] [address] [facility] [address] [place] [address] St Shira Snow NP Morbid obesity (Primary Dx); Venous stasis of lower extremity; Edema; Ulcer of lower extremity (HCC) 11/23/[address] [facility] [address] [place] [phone] Roger Johnson DPM FYAric 11/22/2013 Telephone [facility] [address] [facility] [address] [place] [address] St Shira Snow NP No Show 10/10/2013 10:40 AM EST Office Visit [facility] [address] [facility] [address] [place] [address] [address] Onbetsy Shira, ASSISTANT FITNESS MANAGER Ulcer of lower extremity (HCC) (Primary Dx); Venous stasis of lower extremity 09/05/2013 9:20 AM EST Office Visit [facility] [address] [facility] [address] [place] [address] [address] Onge Shira, ASSISTANT FITNESS MANAGER Morbid obesity (Primary Dx); Ulcer of lower extremity (HCC); Chronic venous insufficiency 08/15/2013 9:40 AM EDT Office Visit [facility] [address] [facility] [address] [place] [address] [address] Onge Shira, ASSISTANT FITNESS MANAGER Morbid obesity (Primary Dx); Ulcer of lower extremity (HCC); Venous stasis of lower extremity 08/09/2013 1:30 PM EDT Consult (Initial) [facility] [address] [place] [phone] Roger Johnson DPM Type II diabetes mellitus with peripheral circulatory disorder (Primary Dx); Onychomycosis; Peripheral angiopathy in diseases classified elsewhere; Pain in limb 07/24/2013 10:30 AM EDT Office Visit [facility] [address] [facility] [address] [place] [address] Tamika Lomax MD Venous ulcer of leg (HCC) (Primary Dx); Venous insufficiency 07/07/2013 9:00 AM EDT Office Visit [facility] [address] [facility] [address] [place] [address] [address] OnShira meyer, ASSISTANT FITNESS MANAGER Ulcer of lower extremity (HCC) (Primary Dx); Venous stasis of lower extremity; Morbid obesity 06/21/2013 2:30 PM EDT Office Visit [facility] [address] [facility] [address] [place] [address] Tamika Lomax MD Venous ulcer of leg (HCC) (Primary Dx) 06/15/2013 Telephone [facility] [address] [facility] [address] [place] [address] Tamika Lomax MD Wound Care 06/14/2013 Minor Procedure/Test NON [facility] [address] [place] [address] Tamika Lomax MD 06/09/2013 Orders Only [facility] [address] [facility] [address] [place] [address] Shilpi Vasquez Tech 06/09/2013 9:00 AM EDT Nurse Visit [facility] [address] [address] Ally Ervin RN Leg ulcer (HCC) (Primary Dx) 06/09/2013 8:00 AM EDT Office Visit [facility] [address] [address] Yolande Garcia NP Pre-operative examination (Primary Dx); Venous ulcer of leg (HCC); Deep vein thrombosis (HCC); HTN (hypertension); Sleep apnea; Spinal stenosis 06/07/2013 2:45 PM EDT Office Visit [facility] [address] [facility] [address] [place] [address] Tamika Lomax MD Leg ulcer (HCC) (Primary Dx); Venous stasis 05/31/2013 9:00 AM EDT Nurse Visit [facility] [address] [facility] [address] [place] [address] Anabel Springer LPN Ulcer of lower extremity (HCC) (Primary Dx); Edema; Encounter for change or removal of nonsurgical wound dressing 05/24/2013 9:20 AM EDT Office Visit [facility] [address] [facility] [address] [place] [address] Shira Meyers NP Ulcer of lower extremity (HCC) (Primary Dx); Venous stasis of lower extremity 05/18/2013 Orders Only [facility] UNSPECIFIED Malik Nolan DO 05/17/2013 9:15 AM EDT Nurse Visit [facility] [address] [facility] [address] [place] [address] Anabel Springer LPN Edema (Primary Dx); Encounter for change or removal of nonsurgical wound dressing; Ulcer of calf (HCC) 05/10/2013 9:15 AM EDT Nurse Visit [facility] [address] [facility] [address] [place] [address] Anabel Springer LPN Ulcer of lower extremity (HCC) (Primary Dx); Edema; Encounter for change or removal of nonsurgical wound dressing 05/03/2013 9:20 AM EDT Office Visit [facility] [address] [facility] [address] [place] [address] Shira Meyers NP Morbid obesity (Primary Dx); Ulcer of lower extremity (HCC); Venous stasis of lower extremity 04/26/2013 9:20 AM EDT Consult (Initial) [facility] [address] [facility] [address] [place] [address] Shira Meyers NP Ulcer of lower extremity (HCC) (Primary Dx); Venous stasis of lower extremity Allergies Active Allergy Reactions Criticality Noted Date Comments Penicillins Urticarial Rash 05/24/2013 Sulfa Antibiotics Urticarial Rash 05/24/2013 Nsaids Other 05/24/2013 S/p gastric bypass cannot take NSAIDS Amoxicillin 06/07/2013 Misoprostol 06/07/2013 Cephalosporins 06/07/2013 Vancomycin Anaphylaxis High 01/15/2016 Received IV vanco, stopped breathing, got itchy and sweat and BP and P dropped Medications OMEPRAZOLE 20 MG CAPSULE DELAYED RELEASE None Entered 01/24/2013 Active Emollient (AQUAPHOR) OintmentIndicati ons:Leg ulcer (HCC),Venous stasis None Entered Active Lidocaine (LIDODERM) 5 % PatchIndications :Leg ulcer (HCC),Venous stasis 1 PATCH DAILY Active NYSTATIN, TOPICAL, 206955 U/GM OintmentIndicati ons:Leg ulcer (HCC),Venous stasis None Entered Active Ursodiol 300 MG CapIndications:L eg ulcer (HCC),Venous stasis 1 CAPSULE TWICE DAILY WITH FOOD Active Warfarin Sodium 5 MG Recon Soln 5 MG DAILY Act arthur Montelukast Sodium 10 MG Tab 1 TABLET EVERY EVENING Active Tamsulosin HCl 0.4 MG Cap 1 CAPSULE DAILY Active Metoprolol Succinate 25 MG TABLET SR 24 HR 1 TABLET DAILY Active Cyanocobalamin (VITAMIN B-12) 500 MCG Tab 5 TABLETS DAILY Active Furosemide 20 MG Tab 1 TABLET DAILY Active Calcium Carbonate-Vitami n D (CALCIUM-VITAMIN D) 500-200 MG-UNIT Tab 1 TABLET DAILY Active Nutritional Supplements (GLUCERNA) Liquid 8 oz DAILY Active Sertraline HCl 50 MG Tab 1 TABLET DAILY Active OxyCODONE HCl 5 MG Tablet Abuse-Deterrent 1 TABLET EVERY 4 TO 6 HOURS NEEDED Active Sodium Chloride, Hypertonic, (KINGS 128) 5 % ophthalmic ointment Apply 1 drop to both eyes 4 (four) times a day Active Gabapentin, Once-Daily, 300 MG Tab 06/01/2015 Active Active Problems Problem Noted Date Diagnosed Date Lymphedema of both lower extremities 04/13/2018 Morbid obesity due to excess calories 03/31/2017 Ulcers of both lower legs, limited to breakdown of skin 03/31/2017 Lymphedema 07/29/2016 Leg ulcer 06/07/2013 Immunizations Name Administration Dates Next Due COVID-19, mRNA ([employer] Pre F 2022) Monovalent, 30 mcg/0.3 ml 10/15/2021,01/08/2021,12/18/2020 Covid-19, mRNA ([employer] Pre F 2022) Monovalent, 30 mcg/0.3 ml opal-sucrose (12+) 05/21/2022 Influenza,injectable,quad,Prsrv Fr 06/17/2021, Influenza,injectable,quad,pr eserva tive 07/06/2019,08/02/2018,06/29/2017, 01 6,07/02/2015 Influenza,recombinant,quad,i njecta ble,Prsrv Fr 07/21/2022 Influenza,seasonal,trivalent ,prese rvative (FLUZONE MDV) 06/24/2012 PPV23 (Pneumovax) 09/25/2017 Tdap 12/07/2019 Zoster (Shingrix) 07/22/2022,05/06/2022 Social History Smoking Status as of 11/14/2024 Tobacco Use Types Packs/Day Years Used Date Smoking Tobacco: Never Assessed Intimate Partner Violence Answer Date R ecorded Fear of Current or Ex-Partner Not on file Emotionally Abused Not on file 06/09/2023 Physically Abused Not on file 06/09/2023 Sexually Abused Not on file 06/09/2023 Feel Safe at Home Not on file 06/09/2023 Sex and Gender Information Value Date Recorded Sex Assigned at Not on file Legal Sex Male 10:22 AM EDT Gender Identity Not on file Sexual Orientation Not on file Last Filed Vital Signs Vital Sign Reading Time Taken Comments Blood Pressure 154/91 10/12/2019 10:07 AM EST Pulse 60 10/12/2019 10:07 AM EST Temperature 36.3 ??C (97.4 ??F) 06/09/2013 7:57 AM ED T Respiratory Rate 14 06/09/2013 7:57 AM EDT Oxygen Saturation - - Inhaled Oxygen Concentration - - Weight 162 kg (358 lb) 06/09/2013 7:57 AM EDT Height 175.3 cm (5' 9 ) 06/09/2013 7:57 AM EDT Body Mass Index 52.87 06/09/2013 7:57 AM EDT Plan of Treatment Not on file Procedures * Due to [place] state law, this organization might not be sharing negative HIV tests. Procedure Name Priority Date/Time Associated Diagnosis Comments UNSPECIFIED MAJOR PROCEDURE 09/29/2019 TENDON SHEATH INCISION Routine 11/08/2018 8:24 AM EST Trigger ring finger of left hand TENDON SHEATH INCISION Routine 09/27/2018 8:51 AM EST Trigger finger, right ring finger PROTHROMBIN TIME Routine 02/19/2017 7:20 AM EDT CBC WITH 5 PART DIFF Routine 02/19/2017 7:20 AM EDT URINALYSIS,C&S IF INDICATED Routine 02/18/2017 8:33 PM EDT PROTHROMBIN TIME Routine 02/18/2017 9:43 AM EDT CBC WITH 5 PART DIFF Routine 02/18/2017 9:43 AM EDT CULTURE, BLOOD #2 Routine 02/17/2017 3:1 0 PM EDT CULTURE, BLOOD #1 Routine 02/17/2017 3:0 5 PM EDT CBC WITH 5 PART DIFF Routine 02/17/2017 3:05 PM EDT BASIC METABOLIC PANEL Routine 02/17/2017 3:05 PM EDT PHOSPHORUS Routine 02/17/2017 3:05 PM EDT MAGNESIUM Routine 02/17/2017 3:05 PM EDT PROTHROMBIN TIME Routine 02/17/2017 3:05 PM EDT CXR 2 VIEW AP/PA AND LAT Routine 02/17/2017 1:59 PM EDT CULTURE,ANAEROBIC Routine 06/14/2013 10: 50 AM EDT CULTURE,ANY SOURCE Routine 06/14/2013 10 :48 AM EDT UNSPECIFIED MAJOR PROCEDURE 06/14/2013 EKG-TO BE READ & BILLED BY ADULT OR PEDIATRIC CARDIOLOGY Routine 06/09/2013 7:25 AM EDT Venous ulcer of leg (HCC) Pre-operative examination UNSPECIFIED DIAGNOSTIC PROCE 05/18/2013 Results * Due to [place] state law, this organization might not be sharing negative HIV tests. * UNSPECIFIED MAJOR PROCEDURE (09/29/2019) Joshua Hendrix MD PROCEDURES Final Resul t * (ABNORMAL) CBC WITH 5 PART DIFF (02/19/2017 7:20 AM EDT) Only the most recent of3 resultswithin the time period is included. WHITE BLOOD COUNT 6.4 3.9 - 11.0 x1000/uL [facility] Comment: Smear review performed when a >50% change is noted in any parameter, or more than 72 hours has elapsed since the last CBC. RBC 3.47(L) 4.30 - 5.80 mil/ul [facility] Hemoglobin 10.8(L) 12.5 - 17.0 g/dL [facility] HCT (HEMATOCRIT) 33.4(L) 36.0 - 50.0 % [facility] MCV 96 80 - 100 fL [facility] MCH 31 27 - 33 pg [facility] MCHC 32 31 - 36 g/dL [facility] RDW 14.7(H) 11.4 - 14.4 % [facility] PLATELETS 337 150 - 450 x1000/uL [facility] MPV 9.6 7.0 - 11.0 fL [facility] NEUTROPHILS 69 % [facility] LYMPHOCYTE % 16 % [facility] MONOCYTE % 12 % [facility] EOSINOPHIL % 2 % [facility] BASOPHIL % 1 % [facility] NEUTROPHILS (#) 4.4 1.8 - 7.0 x1000/uL [facility] LYMPHOCYTES # 1.0 0.7 - 4.5 x1000/uL [facility] MONOCYTES # 0.8 0.1 - 0.8 x1000/uL [facility] EOSINOPHILS # 0.1 0.0 - 0.4 x1000/uL [facility] BASOPHILS # 0.1 0.0 - 0.2 x1000/uL [facility] 02/19/2017 7:20 AM EDT 02/19/2017 7:20 AM EDT us Tamika Lomax MD LABORATORY Final Res ult [facility] [address] [place] [address] * (ABNORMAL) PROTHROMBIN TIME (02/19/2017 7:20 AM EDT) Only the most recent of3 resultswithin the time period is included. PT (PROTHROMBIN TIME) 19.0(H) 9.1 - 12.0 sec [facility] INR 1.8(L) 2.0 - 3.5 [facility] Comment: INR reference interval applies to patients on anticoagulant therapy. ??Suggested INR therapeutic range for oral anticoagulant therapy:(Stabilized anticoagulated patients) ?Routine Therapy: ? 2.0-3.0 ?Recurrent Myocardial Infarction or ?Mechanical Prosthetic Valves: ?2.5-3.5 02/19/2017 7:20 AM EDT 02/19/2017 7:20 AM EDT us Tamika Lomax MD LABORATORY Final Res ult [facility] [address] [place] [address] * URINALYSIS,C&S IF INDICATED (02/18/2017 8:33 PM EDT) COLOR (URINE) YELLOW [facility] APPEARANCE (URINE) CLOUDY [facility] GLUCOSE (URINE) NEGATIVE Negative mg/dL [facility] BILIRUBIN (URINE) NEGATIVE Negative [facility] Ketones (Urine) NEGATIVE Negative mg/dL [facility] SPECIFIC GRAVITY 1.022 1.005 - 1.030 [facility] BLOOD (URINE) NEGATIVE Negative [facility] PH (URINE) 5.5 5.0 - 8.0 [facility] PROTEIN (URINE) NEGATIVE Neg-Trace mg/dL [facility] UROBILINOGEN 0.2 0.2 - 1.0 mg/dL [facility] NITRITE (URINE) NEGATIVE Negative [facility] WBC (URINE) NEGATIVE Negative [facility] Microscopic (Urine) [facility] Comment:Microscopic not leonor cated Culture Indication NO [facility] 02/18/2017 8:33 PM EDT 02/18/2017 8:33 PM EDT us Tamika Lomax MD LABORATORY Final Res ult Performing Organization Address City/[facility]/ZIP Co de Phone Number [facility] [address] [place] [address] * CULTURE, BLOOD #2 (02/17/2017 3:10 PM EDT) SOURCE: Venipuncture [facility] Result(s) No growth after 5 days incubation [facility] REPORT STATUS: Final [facility] 02/17/2017 3:10 PM EDT 02/17/2017 3:10 PM EDT us Tamika Lomax MD LABORATORY Final Res ult Performing Organization Address [facility]/ZIP Co de Phone Number [facility] [address] [place] [address] * CULTURE, BLOOD #1 (02/17/2017 3:05 PM EDT) SOURCE: Venipuncture [facility] Result(s) No growth after 5 days incubation [facility] REPORT STATUS: Final [facility] 02/17/2017 3:05 PM EDT 02/17/2017 3:05 PM EDT Tamika Lomax MD LABORATORY Final Res ult [facility] [address] [place] [address] * PHOSPHORUS (02/17/2017 3:05 PM EDT) PHOSPHATE 3.0 2.5 - 4.5 mg/dL [facility] 02/17/2017 3:05 PM EDT 02/17/2017 3:05 PM EDT Tamika Lomax MD LABORATORY Final Res ult Performing Organization Address City/[facility]/ZIP Co de Phone Number [facility] [address] [place] [address] * MAGNESIUM (02/17/2017 3:05 PM EDT) MAGNESIUM 1.8 1.6 - 2.6 mg/dL [facility] 02/17/2017 3:05 PM EDT 02/17/2017 3:05 PM EDT Tamika Lomax MD LABORATORY Final Res ult Performing Organization Address [facility] Co de Phone Number [facility] [address] [place] [id number] * (ABNORMAL) BASIC METABOLIC PANEL (02/17/2017 3:05 PM EDT) Glucose 128(H) 65 - 99 mg/dL [facility] BUN 11 5 - 26 mg/dL [facility] CREATININE 0.93 0.5 - 1.5 mg/dL [facility] BUN/Creatinine Ratio 12 8 - 27 [facility] GLOM FILT RATE, EST 94.1 >59 mL/min [facility] IF -KENNETH N 109.0 >59 mL/min [facility] SODIUM 139 134 - 144 mEq/L [facility] POTASSIUM 3.7 3.6 - 5.6 mEq/L [facility] CHLORIDE 104 96 - 109 mEq/L [facility] CARBON DIOXIDE 23 20 - 32 mEq/L [facility] ANION GAP 12.0 8 - 15 [facility] CALCIUM 8.5 8.3 - 10.0 mg/dL [facility] 02/17/2017 3:05 PM EDT 02/17/2017 3:05 PM EDT us Tamika Lomax MD LABORATORY Final Res ult Performing Organization Address City/[facility]/ZIP Co de Phone Number [facility] [address] [place] [address] * CXR 2 VIEW AP/PA AND LAT (02/17/2017 1:59 PM EDT) RADIOLOGY REPORT [facility] Department of Radiology [address] [place] [address], [id number] Name: RICARDO REECE : 63 Date of Service: 02/17/17 1455 Acct Number: [id number] Order Number: ??[id number] ?Location: [facility] Report Number: [id number] ?Service: ADM IN/HENRRY Requesting Physician: Larry Burgos Category: RADIOLOGY ??[facility] Exam: CHEST 2 VIEW (DEPARTMENT) ?? Signs/Symptoms: eval for pneumonia Report Status: Signed Chest X-ray, 2 views History: ??eval for pneumonia Comparison: None. AP upright and lateral chest films are obtained. Overlying soft tissue pannus obscures portions of the lower lung regions. The heart is mildly enlarged. The aorta and mediastinal structures appear to be within normal limits. No evidence of failure is seen. Right costophrenic angle is sharp. Left is not entirely included. No localized infiltrate is seen. Limited penetration of the lung cobb is achieved on the lateral view due to the overlying soft tissues. Mild degenerative changes are seen involving the acromial clavicular joints. IMPRESSION: No acute infiltrate is seen. Date/Time of Dictation: 02/17/17 1503 Poll Watcher (if applicable): Approved By Attending Radiologist: Dylon Garcia 02/17/17 1503 [facility] Department of Radiology [address] [place] [address], [id number] ? [phone] ? [facility] Anatomical Region Laterality Modality Other 02/17/2017 1:59 PM EDT Narrative 02/17/2017 3:04 PM EDT Reason for Study/History: Department of Radiology TEST(S) PROCESSED BY [facility] XRAY us Unknown Provider [facility] Final Resul t * CULTURE,ANAEROBIC (06/14/2013 10:50 AM EDT) SOURCE: Tissue wound rt leg [facility] GRAM STAIN Many (>25/lpf) WBC No bacteria seen [facility] Result(s) No anaerobes isolated Aerobic Gram Positive Cocci [facility] REPORT STATUS: Final [facility] 06/14/2013 10:5 0 AM EDT 06/14/2013 10:50 AM EDT Tamika Lomax MD LABORATORY Final Res ult Performing Organization Address [facility] Co de Phone Number [facility] [address] [place] [address] * CULTURE,ANY SOURCE (06/14/2013 10:48 AM EDT) SOURCE: Tissue wound rt leg [facility] GRAM STAIN Many (>25/lpf) WBC No bacteria seen [facility] Result(s) Streptococcus species Group G - Light growth (1-2+) Mixed gram positive organisms - Rare growth [facility] REPORT STATUS: Final [facility] 06/14/2013 10:4 8 AM EDT 06/14/2013 10:48 AM EDT Tamika Lomax MD LABORATORY Final Res ult Performing Organization Address City/[facility]/ZIP Co de Phone Number [facility] [address] [place] [address] * UNSPECIFIED MAJOR PROCEDURE (06/14/2013) Narrative Transcriptions Tamika Lomax MD - 06/14/2013 12:00 AM EDT OPERATIVE REPORT DATE OF OPERATION: 06/14/2013 PREOPERATIVE DIAGNOSIS: Necrotic right posterior calf venousulcerations x 2. POSTOPERATIVE DIAGNOSIS: Necrotic right posterior calf venous ulcerations x 2. PROCEDURE PERFORMED: Sharp excisional debridement of both ulcers including skin and subcutaneous tissues. The larger ulcer was 36 cm2and the smaller ulcer was 16 cm2. SURGEON: Dr. Tamika Lomax. BOX BUILDER: Dr. Bradley. ANESTHESIA: General. ESTIMATED BLOOD LOSS: Minimal. SPECIMENS: Tissue to Micro. FINDINGS: Healthy bleeding tissue underneath the necrotic wounds. INDICATIONS AND HISTORY: Mr. Reece is a pleasant 47-year-old gentleman who has bilateral chronic venous insufficiency. He has had ulcers on his right leg, which more recently have become more painfuland developed black necrotic eschars with a foul odor. He could nottolerate a local debridement here in the office, so informed consent was obtained for the above procedure. INFORMED CONSENT: Mr. Reece understood the risks included butwere not limited to bleeding, infection, heart attack, deep vein thrombosis, pulmonary embolism, , pain, failure to heal, need for further surgery. DESCRIPTION OF OPERATIVE PROCEDURE AND FINDINGS: Mr. Reece was brought to the Operating Room and placed in the supine position on the table. Cardiopulmonary monitoring devices were placed and intravenous antibiotics administered. General anesthesia was established and he was prepped and draped in a standard sterile fashion. In the preoperative holding area, site verification was performed by me. In the Operating Room, a time-out was performed for both patient and procedure verification. The surgical blade was then brought into the field and a sharp excisional debridement was carried out of both ulcers includingthe necrotic tissue to include skin and subcutaneous tissues. This was down to healthy bleeding tissue underneath. Once this was accomplished, the [employer] lithoduplicator operator was brought into the field and the wounds were irrigated with antibiotic solution. An antibiotic-soaked gauze was then placed on the wounds and a dry dressing over this. There was a skin bridge between the two, which was partially removed, so the wound is now 1 larger wound. The counts were correct at the end of the case and I was present and scrubbed for the procedure. Mr. Reece tolerated the procedure and was sent to recovery in stable condition. Electronically Authenticated By: Tamika Lomax MD 06/21/2013 10:22 Tamika Lomax MD ES TD: 11:51 A TT: 12:06 P Doc #: [id number] cc: MD Malik Washburn MD Tamika Lomax MD PROCEDURES Final Res ult * EKG-TO BE READ AND BILLED BY CARDIOLOGY (06/09/2013 7:25 AM EDT) VENTRICULAR RATE 66 BPM MUS E EKG SYSTEM ATRIAL RATE 66 BPM MUSE EKG SYSTEM P-R INTERVAL 174 ms MUSE EK G SYSTEM QRS DURATION 108 ms MUSE EK G SYSTEM QT 388 ms MUSE EKG SYSTEM QTC 406 ms MUSE EKG SYSTEM P AXIS 67 degrees MUSE EKG SYSTEM R AXIS 60 degrees MUSE EKG SYSTEM T AXIS 57 degrees MUSE EKG SYSTEM EKG INTERPRETATION Normal sinus rhythm Possible Left atrial enlargement Borderline ECG No previous ECGs available MUSE EKG SYSTEM 06/09/2013 7:25 AM EDT Yolande Garcia ASSISTANT FITNESS MANAGER CARDIOVASCULAR-WITH INBSKT R TG Final Result MUSE EKG SYSTEM * UNSPECIFIED DIAGNOSTIC PROCE (05/18/2013) Narrative Transcriptions Malik Nolan DO - 06/13/2013 12:00 AM EDT Malik Nolan DO LABORATORY Final Res ult Visit Diagnoses Diagnosis Start Date Ulcer of lower extremity (HCC) Ulcer of lower limb, unspecified 04/26/2013 Venous stasis of lower extremity Unspecified venous (peripheral) insufficiency 04/26/2013 Morbid obesity (HCC) Morbid obesity 05/03/2013 Ulcer of lower extremity (HCC) Ulcer of lower limb, unspecified 05/03/2013 Venous stasis of lower extremity Unspecified venous (peripheral) insufficiency 05/03/2013 Edema 05/10/2013 Encounter for change or removal of nonsurgical wound dressing 05/10/2013 Ulcer of lower extremity (HCC) Ulcer of lower limb, unspecified 05/10/2013 Edema 05/17/2013 Encounter for change or removal of nonsurgical wound dressing 05/17/2013 Ulcer of calf (HCC) Ulcer of calf 05/17/2013 Ulcer of lower extremity (HCC) Ulcer of lower limb, unspecified 05/24/2013 Venous stasis of lower extremity Unspecified venous (peripheral) insufficiency 05/24/2013 Ulcer of lower extremity (HCC) Ulcer of lower limb, unspecified 05/31/2013 Edema 05/31/2013 Encounter for change or removal of nonsurgical wound dressing 05/31/2013 Leg ulcer (HCC) Ulcer of lower limb, unspecified 06/07/2013 Venous stasis Unspecified venous (peripheral) insufficiency 06/07/2013 Pre-operative clearance Preoperative examination, unspecified 06/09/2013 Leg ulcer (HCC) Ulcer of lower limb, unspecified 06/09/2013 Venous ulcer of leg (HCC) Varicose veins of lower extremities with ulcer 06/09/2013 Pre-operative examination Preoperative examination, unspecified 06/09/2013 Deep vein thrombosis (HCC) Acute venous embolism and thrombosis of unspecified deep vessels of lower extremity 06/09/2013 HTN (hypertension) Unspecified essential hypertension 06/09/2013 Sleep apnea Unspecified sleep apnea 06/09/2013 Spinal stenosis Spinal stenosis, unspecified region other than cervical 06/09/2013 Venous ulcer of leg (HCC) Varicose veins of lower extremities with ulcer 06/21/2013 Ulcer of lower extremity (HCC) Ulcer of lower limb, unspecified 07/07/2013 Venous stasis of lower extremity Unspecified venous (peripheral) insufficiency 07/07/2013 Morbid obesity (HCC) Morbid obesity 07/07/2013 Venous insufficiency Unspecified venous (peripheral) insufficiency 07/24/2013 Venous ulcer of leg (HCC) Varicose veins of lower extremities with ulcer 07/24/2013 Onychomycosis Dermatophytosis of nail 08/09/2013 Type II diabetes mellitus with peripheral circulatory disorder (HCC) Type II or unspecified type diabetes mellitus with peripheral circulatory disorders, not stated as uncontrolled 08/09/2013 Peripheral angiopathy in diseases classified elsewhere 08/09/2013 Pain in limb Pain in soft tissues of limb 08/09/2013 Morbid obesity (HCC) Morbid obesity 08/15/2013 Ulcer of lower extremity (HCC) Ulcer of lower limb, unspecified 08/15/2013 Venous stasis of lower extremity Unspecified venous (peripheral) insufficiency 08/15/2013 Morbid obesity (HCC) Morbid obesity 09/05/2013 Ulcer of lower extremity (HCC) Ulcer of lower limb, unspecified 09/05/2013 Chronic venous insufficiency Unspecified venous (peripheral) insufficiency 09/05/2013 Ulcer of lower extremity (HCC) Ulcer of lower limb, unspecified 10/10/2013 Venous stasis of lower extremity Unspecified venous (peripheral) insufficiency 10/10/2013 Morbid obesity (HCC) Morbid obesity 01/16/2014 Venous stasis of lower extremity Unspecified venous (peripheral) insufficiency 01/16/2014 Edema 01/16/2014 Ulcer of lower extremity (HCC) Ulcer of lower limb, unspecified 01/16/2014 Edema 01/23/2014 Morbid obesity (HCC) Morbid obesity 01/23/2014 Ulcer of lower extremity (HCC) Ulcer of lower limb, unspecified 01/23/2014 Venous stasis of lower extremity Unspecified venous (peripheral) insufficiency 01/23/2014 Ulcer of lower extremity (HCC) Ulcer of lower limb, unspecified 01/29/2014 Venous stasis of lower extremity Unspecified venous (peripheral) insufficiency 01/29/2014 Morbid obesity (HCC) Morbid obesity 01/29/2014 Ulcer of lower extremity (HCC) Ulcer of lower limb, unspecified 02/26/2014 Venous stasis of lower extremity Unspecified venous (peripheral) insufficiency 02/26/2014 Morbid obesity (HCC) Morbid obesity 03/29/2014 Ulcer of lower extremity (HCC) Ulcer of lower limb, unspecified 03/29/2014 Venous stasis of lower extremity Unspecified venous (peripheral) insufficiency 03/29/2014 Ulcer of lower extremity (HCC) Ulcer of lower limb, unspecified 05/31/2014 Chronic venous insufficiency Unspecified venous (peripheral) insufficiency 05/31/2014 Venous stasis dermatitis Varicose veins of lower extremities with inflammation 07/20/2014 Venous ulcer of leg (HCC) Varicose veins of lower extremities with ulcer 07/20/2014 Ulcer of lower extremity (HCC) Ulcer of lower limb, unspecified 07/26/2014 Chronic venous insufficiency Unspecified venous (peripheral) insufficiency 07/26/2014 Morbid obesity ([facility]) Morbid obesity 07/26/2014 Venous stasis of lower extremity Unspecified venous (peripheral) insufficiency 07/26/2014 Lymphedema Other lymphedema 08/09/2014 Ulcer of lower extremity (HCC) Ulcer of lower limb, unspecified 08/09/2014 Chronic venous insufficiency Unspecified venous (peripheral) insufficiency 08/09/2014 Onychomycosis Dermatophytosis of nail 08/22/2014 Type II diabetes mellitus with peripheral circulatory disorder (HCC) Type II or unspecified type diabetes mellitus with peripheral circulatory disorders, not stated as uncontrolled 08/22/2014 Peripheral angiopathy in diseases classified elsewhere 08/22/2014 Pain in limb 08/22/2014 Ulcer of lower extremity (HCC) Ulcer of lower limb, unspecified 11/09/2014 Venous stasis of lower extremity Unspecified venous (peripheral) insufficiency 11/09/2014 Edema 11/16/2014 Encounter for change or removal of nonsurgical wound dressing 11/16/2014 Edema 11/23/2014 Encounter for change or removal of nonsurgical wound dressing 11/23/2014 Edema 12/03/2014 Encounter for change or removal of nonsurgical wound dressing 12/03/2014 Ulcer of lower extremity (HCC) Ulcer of lower limb, unspecified 12/07/2014 Venous stasis of lower extremity Unspecified venous (peripheral) insufficiency 12/07/2014 Edema 12/14/2014 Encounter for change or removal of nonsurgical wound dressing 12/14/2014 Edema 12/21/2014 Encounter for change or removal of nonsurgical wound dressing 12/21/2014 Ulcer of calf (HCC) Ulcer of calf 12/21/2014 Edema 12/28/2014 Ulcer of lower extremity (HCC) Ulcer of lower limb, unspecified 12/28/2014 Venous stasis of lower extremity Unspecified venous (peripheral) insufficiency 12/28/2014 Ulcer of lower limb Ulcer of lower limb, unspecified 02/05/2015 Edema 02/05/2015 Encounter for change or removal of nonsurgical wound dressing 02/05/2015 Edema 02/15/2015 Ulcer of lower extremity, right, with unspecified severity (HCC) [707.10] 02/15/2015 Venous stasis of lower extremity Unspecified venous (peripheral) insufficiency 02/15/2015 Edema 02/22/2015 Encounter for change or removal of nonsurgical wound dressing 02/22/2015 Edema 03/04/2015 Encounter for change or removal of nonsurgical wound dressing 03/04/2015 Edema 03/08/2015 Encounter for change or removal of nonsurgical wound dressing 03/08/2015 Ulcer of calf, unspecified laterality, with unspecified severity (HCC) [707.12] 03/08/2015 Ulcer of ankle, unspecified laterality, with unspecified severity (HCC) [707.13] 03/08/2015 Edema 03/15/2015 Ulcers of both lower legs (HCC) Ulcer of lower limb, unspecified 03/15/2015 Morbid obesity (HCC) Morbid obesity 05/30/2015 Ulcer of lower extremity, right, with unspecified severity (HCC) [707.10] 05/30/2015 Ulcer of lower extremity, left, with unspecified severity (HCC) [707.10] 05/30/2015 Chronic venous insufficiency Unspecified venous (peripheral) insufficiency 05/30/2015 Venous stasis of lower extremity Unspecified venous (peripheral) insufficiency 05/30/2015 Edema 06/05/2015 Encounter for change or removal of nonsurgical wound dressing 06/05/2015 Ulcer of calf, unspecified laterality, with unspecified severity (HCC) [707.12] 06/05/2015 Edema 06/11/2015 Encounter for change or removal of nonsurgical wound dressing 06/11/2015 Ulcer of calf, unspecified laterality, with unspecified severity (HCC) [707.12] 06/11/2015 Ulcer of lower extremity, unspecified laterality, with unspecified severity (HCC) 06/21/2015 Edema 06/21/2015 Encounter for change or removal of nonsurgical wound dressing 06/21/2015 Ulcers of both lower extremities (HCC) Ulcer of lower limb, unspecified 06/28/2015 Encounter for change or removal of nonsurgical wound dressing 06/28/2015 Ulcers of both lower extremities (HCC) Ulcer of lower limb, unspecified 07/08/2015 Generalized edema [782.3] Edema 07/08/2015 Encounter for change or removal of nonsurgical wound dressing 07/08/2015 Edema, unspecified edema [R60.9] 07/26/2015 Encounter for change or removal of nonsurgical wound dressing 07/26/2015 Venous stasis dermatitis of both lower extremities [I83.11, I83.12] 08/01/2015 Morbid obesity, unspecified obesity type (HCC) [E66.01] 08/01/2015 Ulcer of lower extremity, right, with unspecified severity (HCC) [L97.919] 08/01/2015 Venous stasis of lower extremity Unspecified venous (peripheral) insufficiency 08/01/2015 Varicose veins of right lower extremity with inflammation Varicose veins of lower extremities with inflammation 08/08/2015 Varicose veins of left lower extremity with inflammation Varicose veins of lower extremities with inflammation 08/08/2015 Edema, unspecified edema [R60.9] 08/08/2015 Encounter for change or removal of nonsurgical wound dressing 08/08/2015 Generalized edema [R60.1] Edema 08/15/2015 Encounter for change or removal of nonsurgical wound dressing 08/15/2015 Edema, unspecified edema [R60.9] 08/22/2015 Encounter for change or removal of nonsurgical wound dressing 08/22/2015 Ulcer of lower extremity, left, with unspecified severity (HCC) [L97.929] 08/29/2015 Ulcer of lower extremity, right, with unspecified severity (HCC) [L97.919] 08/29/2015 Venous stasis of lower extremity Unspecified venous (peripheral) insufficiency 08/29/2015 Morbid obesity, unspecified obesity type (HCC) [E66.01] 08/29/2015 Ulcers of both lower extremities (HCC) Ulcer of lower limb, unspecified 09/06/2015 Edema, unspecified edema [R60.9] 09/06/2015 Encounter for change or removal of nonsurgical wound dressing 09/06/2015 Ulcer of lower extremity, unspecified laterality, with unspecified severity (HCC) 09/19/2015 Generalized edema [R60.1] Edema 09/19/2015 Encounter for change or removal of nonsurgical wound dressing 09/19/2015 Ulcer of lower extremity, left, with unspecified severity (HCC) [L97.929] 09/26/2015 Ulcer of lower extremity, right, with unspecified severity (HCC) [L97.919] 09/26/2015 Edema, due to unspecified malnutrition type, unspecified edema 09/26/2015 Morbid obesity, unspecified obesity type (HCC) [E66.01] 09/26/2015 Non-pressure ulcer of lower extremity, unspecified laterality, with unspecified severity (HCC) 10/03/2015 Generalized edema [R60.1] Edema 10/03/2015 Encounter for change or removal of nonsurgical wound dressing 10/03/2015 Leg ulcer, unspecified laterality, with unspecified severity (HCC) 10/14/2015 Generalized edema [R60.1] Edema 10/14/2015 Encounter for change or removal of nonsurgical wound dressing 10/14/2015 Ulcer of lower extremity, right, with unspecified severity (HCC) [L97.919] 10/24/2015 Chronic venous insufficiency Unspecified venous (peripheral) insufficiency 10/24/2015 Venous stasis of lower extremity Unspecified venous (peripheral) insufficiency 10/24/2015 Morbid obesity, unspecified obesity type (HCC) [E66.01] 10/24/2015 Ulcer of lower extremity, left, with unspecified severity (HCC) [L97.929] 10/24/2015 Ulcer of lower extremity, unspecified laterality, with unspecified severity (HCC) 10/28/2015 Encounter for change or removal of nonsurgical wound dressing 10/28/2015 Onychomycosis Dermatophytosis of nail 10/31/2015 Atherosclerosis of [place] artery of both lower extremities, with unspecified presence of clinical manifestation (HCC) [I70.203] 10/31/2015 Pain of toes of both feet 10/31/2015 Encounter for change or removal of nonsurgical wound dressing 11/01/2015 Ulcer of lower extremity, unspecified laterality, with unspecified severity (HCC) 11/01/2015 Edema, unspecified type [R60.9] 11/04/2015 Encounter for change or removal of nonsurgical wound dressing 11/04/2015 Lymphedema Other lymphedema 12/10/2015 Ulcer of lower extremity, left, with unspecified severity (HCC) [L97.929] 12/10/2015 Venous stasis of lower extremity Unspecified venous (peripheral) insufficiency 12/10/2015 Ulcer of lower extremity, unspecified laterality, with unspecified severity (HCC) 2015 Edema, unspecified type [R60.9] 2015 Encounter for change or removal of nonsurgical wound dressing 2015 Ulcer of lower extremity, left, with unspecified severity (HCC) [L97.929] 01/09/2016 Ulcer of lower extremity, right, with unspecified severity (HCC) [L97.919] 01/09/2016 Lymphedema Other lymphedema 01/09/2016 Chronic venous insufficiency Unspecified venous (peripheral) insufficiency 01/09/2016 Lymphedema Other lymphedema 01/15/2016 Ulcer of lower extremity, left, with unspecified severity (HCC) [L97.929] 01/15/2016 Venous stasis dermatitis of both lower extremities 02/13/2016 Ulcer of lower extremity, left, with unspecified severity (HCC) [L97.929] 02/26/2016 Ulcer of lower extremity, right, with unspecified severity (HCC) [L97.919] 02/26/2016 Lymphedema Other lymphedema 02/26/2016 Lymphedema Other lymphedema 03/05/2016 Ulcer of lower extremity, left, with unspecified severity (HCC) [L97.929] 03/05/2016 Ulcer of lower extremity, right, with unspecified severity (HCC) [L97.919] 03/05/2016 Lymphedema Other lymphedema 03/11/2016 Ulcer of lower extremity, left, with unspecified severity (HCC) [L97.929] 03/11/2016 Ulcer of lower extremity, right, with unspecified severity (HCC) [L97.919] 03/11/2016 Presence of IVC filter Other postprocedural status 03/12/2016 Bilateral leg ulcer, limited to breakdown of skin (HCC) 03/12/2016 Edema, unspecified type [R60.9] 03/18/2016 Encounter for change or removal of nonsurgical wound dressing 03/18/2016 Bilateral leg ulcer, with unspecified severity (HCC) 04/02/2016 Edema, unspecified type [R60.9] 04/02/2016 Encounter for change or removal of nonsurgical wound dressing 04/02/2016 Edema, unspecified type [R60.9] 04/09/2016 Encounter for change or removal of nonsurgical wound dressing 04/09/2016 Ulcer of lower extremity, left, with unspecified severity (HCC) [L97.929] 04/15/2016 Venous stasis of lower extremity Unspecified venous (peripheral) insufficiency 04/15/2016 Edema, unspecified type [R60.9] 04/22/2016 Encounter for change or removal of nonsurgical wound dressing 04/22/2016 Ulcers of both lower extremities (HCC) Ulcer of lower limb, unspecified 04/29/2016 Edema, unspecified type [R60.9] 04/29/2016 Encounter for change or removal of nonsurgical wound dressing 04/29/2016 Ulcer of lower extremity, left, with unspecified severity (HCC) [L97.929] 05/06/2016 Ulcer of lower extremity, right, with unspecified severity (HCC) [L97.919] 05/06/2016 Venous stasis of lower extremity Unspecified venous (peripheral) insufficiency 05/06/2016 Ulcer of lower extremity, left, with unspecified severity (HCC) [L97.929] 05/20/2016 Ulcer of lower extremity, right, with unspecified severity (HCC) [L97.919] 05/20/2016 Edema, unspecified type [R60.9] 05/20/2016 Venous stasis of lower extremity Unspecified venous (peripheral) insufficiency 05/20/2016 Edema, unspecified type [R60.9] 05/27/2016 Encounter for change or removal of nonsurgical wound dressing 05/27/2016 Ulcers of both lower extremities (HCC) Ulcer of lower limb, unspecified 05/27/2016 Edema, unspecified type [R60.9] 06/03/2016 Encounter for change or removal of nonsurgical wound dressing 06/03/2016 Ulcer of lower extremity, unspecified laterality, with unspecified severity (HCC) 06/03/2016 Ulcers of both lower extremities (HCC) Ulcer of lower limb, unspecified 06/10/2016 Edema, unspecified type [R60.9] 06/10/2016 Encounter for change or removal of nonsurgical wound dressing 06/10/2016 Ulcer of lower extremity, left, with unspecified severity (HCC) [L97.929] 06/17/2016 Ulcer of lower extremity, right, with unspecified severity (HCC) [L97.919] 06/17/2016 Chronic venous insufficiency Unspecified venous (peripheral) insufficiency 06/17/2016 Edema, unspecified type [R60.9] 06/24/2016 Encounter for change or removal of nonsurgical wound dressing 06/24/2016 Ulcer of calf, unspecified laterality, with unspecified severity (HCC) [L97.209] 06/24/2016 Edema, unspecified type [R60.9] 07/01/2016 Encounter for change or removal of nonsurgical wound dressing 07/01/2016 Bilateral leg ulcer, with unspecified severity (HCC) 07/01/2016 Edema, unspecified type [R60.9] 07/08/2016 Encounter for change or removal of nonsurgical wound dressing 07/08/2016 Edema, unspecified type [R60.9] 07/15/2016 Encounter for change or removal of nonsurgical wound dressing 07/15/2016 Bilateral leg ulcer, with unspecified severity (HCC) 07/15/2016 Ulcer of lower extremity, left, with unspecified severity [L97.929] 07/29/2016 Ulcer of lower extremity, right, with unspecified severity [L97.919] 07/29/2016 Lymphedema Other lymphedema 07/29/2016 Bilateral leg ulcer, with unspecified severity (HCC) 08/05/2016 Edema, unspecified type [R60.9] 08/05/2016 Encounter for change or removal of nonsurgical wound dressing 08/05/2016 Lymphedema Other lymphedema 08/19/2016 Ulcer of lower extremity, left, with unspecified severity [L97.929] 08/19/2016 Ulcer of lower extremity, right, with unspecified severity [L97.919] 08/19/2016 Lymphedema Other lymphedema 08/27/2016 Ulcer of lower extremity, left, with unspecified severity [L97.929] 08/27/2016 Ulcer of lower extremity, right, with unspecified severity [L97.919] 08/27/2016 Lymphedema Other lymphedema 09/02/2016 Leg ulcer, left, with unspecified severity (HCC) 09/02/2016 Ulcer of lower extremity, right, with unspecified severity [L97.919] 09/02/2016 Ulcers of both lower legs (HCC) Ulcer of lower limb, unspecified 09/30/2016 Edema, unspecified type [R60.9] 09/30/2016 Encounter for change or removal of nonsurgical wound dressing 09/30/2016 Ulcer of lower extremity, left, with unspecified severity [L97.929] 10/07/2016 Ulcer of lower extremity, right, with unspecified severity [L97.919] 10/07/2016 Venous stasis of lower extremity Unspecified venous (peripheral) insufficiency 10/07/2016 Lymphedema Other lymphedema 10/14/2016 Ulcer of lower extremity, left, with unspecified severity [L97.929] 10/14/2016 Ulcer of lower extremity, right, with unspecified severity [L97.919] 10/14/2016 Ulcer of lower extremity, left, with unspecified severity [L97.929] 10/21/2016 Ulcer of lower extremity, right, with unspecified severity [L97.919] 10/21/2016 Venous stasis of lower extremity Unspecified venous (peripheral) insufficiency 10/21/2016 Lymphedema Other lymphedema 10/28/2016 Ulcer of lower extremity, left, with unspecified severity [L97.929] 10/28/2016 Ulcer of lower extremity, right, with unspecified severity [L97.919] 10/28/2016 Chronic venous insufficiency Unspecified venous (peripheral) insufficiency 10/28/2016 Lymphedema Other lymphedema 11/04/2016 Ulcer of lower extremity, left, with unspecified severity [L97.929] 11/04/2016 Ulcer of lower extremity, right, with unspecified severity [L97.919] 11/04/2016 Lymphedema Other lymphedema 11/11/2016 Ulcer of lower extremity, left, with unspecified severity [L97.929] 11/11/2016 Ulcer of lower extremity, right, with unspecified severity [L97.919] 11/11/2016 Lymphedema Other lymphedema 11/19/2016 Ulcer of lower extremity, left, with unspecified severity [L97.929] 11/19/2016 Ulcer of lower extremity, right, with unspecified severity [L97.919] 11/19/2016 Venous stasis of lower extremity Unspecified venous (peripheral) insufficiency 11/19/2016 Lymphedema Other lymphedema 11/25/2016 Ulcer of lower extremity, left, with unspecified severity [L97.929] 11/25/2016 Ulcer of lower extremity, right, with unspecified severity [L97.919] 11/25/2016 Onychomycosis Dermatophytosis of nail 11/25/2016 Pain in toes of both feet [M79.674, M79.675] 11/25/2016 Lymphedema Other lymphedema 12/02/2016 Ulcer of lower extremity, left, with unspecified severity (HCC) 12/02/2016 Ulcer of lower extremity, right, with unspecified severity (HCC) 12/02/2016 Lymphedema Other lymphedema 12/09/2016 Ulcer of lower extremity, left, with unspecified severity (HCC) 12/09/2016 Ulcer of lower extremity, right, with unspecified severity (HCC) 12/09/2016 Lymphedema Other lymphedema 12/16/2016 Ulcer of lower extremity, left, with unspecified severity (HCC) 12/16/2016 Ulcer of lower extremity, right, with unspecified severity (HCC) 12/16/2016 Lymphedema Other lymphedema 12/23/2016 Ulcer of lower extremity, left, with unspecified severity (HCC) 12/23/2016 Ulcer of lower extremity, right, with unspecified severity (HCC) 12/23/2016 Lymphedema Other lymphedema 12/30/2016 Ulcer of lower extremity, left, with unspecified severity (HCC) 12/30/2016 Ulcer of lower extremity, right, with unspecified severity (HCC) 12/30/2016 Lymphedema Other lymphedema 01/06/2017 Ulcer of lower extremity, left, with unspecified severity (HCC) 01/06/2017 Ulcer of lower extremity, right, with unspecified severity (HCC) 01/06/2017 Edema, unspecified type 01/11/2017 Encounter for change or removal of nonsurgical wound dressing 01/11/2017 Lymphedema Other lymphedema 01/14/2017 Ulcer of lower extremity, left, with unspecified severity (HCC) 01/14/2017 Ulcer of lower extremity, right, with unspecified severity (HCC) 01/14/2017 Venous stasis of lower extremity Unspecified venous (peripheral) insufficiency 01/14/2017 Lymphedema Other lymphedema 01/18/2017 Ulcer of lower extremity, left, with unspecified severity (HCC) 01/18/2017 Ulcer of lower extremity, right, with unspecified severity (HCC) 01/18/2017 Edema, unspecified type 01/21/2017 Encounter for change or removal of nonsurgical wound dressing 01/21/2017 Ulcers of both lower legs (HCC) Ulcer of lower limb, unspecified 01/21/2017 Lymphedema Other lymphedema 01/25/2017 Ulcer of lower extremity, left, with unspecified severity (HCC) 01/25/2017 Ulcer of lower extremity, right, with unspecified severity (HCC) 01/25/2017 Lymphedema Other lymphedema 01/28/2017 Ulcer of lower extremity, left, with unspecified severity (HCC) 01/28/2017 Lymphedema Other lymphedema 02/01/2017 Ulcer of lower extremity, left, with unspecified severity (HCC) 02/01/2017 Venous stasis of lower extremity Unspecified venous (peripheral) insufficiency 02/01/2017 Lymphedema Other lymphedema 02/08/2017 Ulcer of lower extremity, left, with unspecified severity (HCC) 02/08/2017 Cellulitis of right lower extremity Cellulitis and abscess of leg, except foot 02/17/2017 Lymphedema Other lymphedema 03/31/2017 Ulcers of both lower legs, limited to breakdown of skin (HCC) 03/31/2017 Morbid obesity due to excess calories (HCC) 03/31/2017 Lymphedema Other lymphedema 04/07/2017 Ulcer of lower extremity, left, with unspecified severity (HCC) 04/07/2017 Ulcer of lower extremity, right, with unspecified severity (HCC) 04/07/2017 Lymphedema Other lymphedema 04/14/2017 Ulcers of both lower legs, limited to breakdown of skin (HCC) 04/14/2017 Venous stasis of lower extremity Unspecified venous (peripheral) insufficiency 04/14/2017 Lymphedema Other lymphedema 04/22/2017 Ulcer of lower extremity, left, with unspecified severity (HCC) 04/22/2017 Ulcer of lower extremity, right, with unspecified severity (HCC) 04/22/2017 Lymphedema Other lymphedema 04/28/2017 Ulcers of both lower legs, limited to breakdown of skin (HCC) 04/28/2017 Ulcers of both lower legs, limited to breakdown of skin (HCC) 05/05/2017 Lymphedema Other lymphedema 05/05/2017 Ulcer of lower extremity, left, with unspecified severity (HCC) 05/12/2017 Ulcer of lower extremity, right, with unspecified severity (HCC) 05/12/2017 Venous stasis of lower extremity Unspecified venous (peripheral) insufficiency 05/12/2017 Lymphedema Other lymphedema 05/12/2017 Ulcers of both lower legs, limited to breakdown of skin (HCC) 06/02/2017 Lymphedema Other lymphedema 06/02/2017 Chronic venous insufficiency Unspecified venous (peripheral) insufficiency 06/02/2017 Edema, unspecified type 06/07/2017 Encounter for change or removal of nonsurgical wound dressing 06/07/2017 Edema, unspecified type 06/09/2017 Encounter for change or removal of nonsurgical wound dressing 06/09/2017 Edema, unspecified type 06/11/2017 Encounter for change or removal of nonsurgical wound dressing 06/11/2017 Edema, unspecified type 06/14/2017 Encounter for change or removal of nonsurgical wound dressing 06/14/2017 Ulcer of lower extremity, left, with unspecified severity (HCC) 06/28/2017 Ulcer of lower extremity, right, with unspecified severity (HCC) 06/28/2017 Lymphedema Other lymphedema 06/28/2017 Ulcers of both lower legs, limited to breakdown of skin (HCC) 09/03/2017 Lymphedema Other lymphedema 09/03/2017 Edema, unspecified type 09/08/2017 Encounter for change or removal of nonsurgical wound dressing 09/08/2017 Ulcer of left lower extremity, unspecified ulcer stage (HCC) 09/17/2017 Ulcer of right lower extremity, unspecified ulcer stage (HCC) 09/17/2017 Lymphedema Other lymphedema 09/17/2017 Ulcers of both lower legs, limited to breakdown of skin (HCC) 10/07/2017 Lymphedema Other lymphedema 10/07/2017 Edema, unspecified type 10/12/2017 Encounter for change or removal of nonsurgical wound dressing 10/12/2017 Edema, unspecified type 10/15/2017 Encounter for change or removal of nonsurgical wound dressing 10/15/2017 Edema, unspecified type 10/19/2017 Encounter for change or removal of nonsurgical wound dressing 10/19/2017 Edema, unspecified type 10/22/2017 Encounter for change or removal of nonsurgical wound dressing 10/22/2017 Ulcers of both lower legs, limited to breakdown of skin (HCC) 10/27/2017 Lymphedema Other lymphedema 10/27/2017 Edema, unspecified type 11/02/2017 Encounter for change or removal of nonsurgical wound dressing 11/02/2017 Edema, unspecified type 11/10/2017 Encounter for change or removal of nonsurgical wound dressing 11/10/2017 Edema, unspecified type 11/17/2017 Encounter for change or removal of nonsurgical wound dressing 11/17/2017 Edema, unspecified type 11/24/2017 Encounter for change or removal of nonsurgical wound dressing 11/24/2017 Edema, unspecified type 12/01/2017 Encounter for change or removal of nonsurgical wound dressing 12/01/2017 Ulcers of both lower legs, limited to breakdown of skin ([facility]) 12/08/2017 Lymphedema Other lymphedema 12/08/2017 Ulcers of both lower legs, limited to breakdown of skin ([facility]) 2017 Lymphedema Other lymphedema 2017 Ulcers of both lower legs, limited to breakdown of skin ([facility]) 12/22/2017 Lymphedema Other lymphedema 12/22/2017 Edema, unspecified type 12/31/2017 Encounter for change or removal of nonsurgical wound dressing 12/31/2017 Ulcers of both lower legs, limited to breakdown of skin ([facility]) 01/05/2018 Lymphedema Other lymphedema 01/05/2018 Ulcers of both lower legs, limited to breakdown of skin (HCC) 01/12/2018 Lymphedema of both lower extremities 01/12/2018 Edema, unspecified type 01/19/2018 Encounter for change or removal of nonsurgical wound dressing 01/19/2018 Ulcers of both lower legs, limited to breakdown of skin (HCC) 02/18/2018 Lymphedema Other lymphedema 02/18/2018 Ulcers of both lower legs, limited to breakdown of skin (HCC) 02/23/2018 Lymphedema Other lymphedema 02/23/2018 Edema, unspecified type 03/02/2018 Encounter for change or removal of nonsurgical wound dressing 03/02/2018 Edema, unspecified type 03/16/2018 Encounter for change or removal of nonsurgical wound dressing 03/16/2018 Edema, unspecified type 03/23/2018 Encounter for change or removal of nonsurgical wound dressing 03/23/2018 Edema, unspecified type 03/30/2018 Encounter for change or removal of nonsurgical wound dressing 03/30/2018 Lymphedema of both lower extremities 04/06/2018 Ulcers of both lower legs, limited to breakdown of skin (HCC) 04/06/2018 Ulcers of both lower legs, limited to breakdown of skin (HCC) 04/13/2018 Lymphedema of both lower extremities 04/13/2018 Onychomycosis Dermatophytosis of nail 04/13/2018 Atherosclerosis of [place] artery of both lower extremities, with unspecified presence of clinical manifestation 04/13/2018 Pain of toes of both feet 04/13/2018 Edema, unspecified type 04/27/2018 Encounter for change or removal of nonsurgical wound dressing 04/27/2018 Edema, unspecified type 05/04/2018 Encounter for change or removal of nonsurgical wound dressing 05/04/2018 Lymphedema of both lower extremities 05/11/2018 Ulcers of both lower legs, limited to breakdown of skin (HCC) 05/11/2018 Edema, unspecified type 05/18/2018 Encounter for change or removal of nonsurgical wound dressing 05/18/2018 Ulcer of left lower extremity, unspecified ulcer stage (HCC) 05/25/2018 Lymphedema of both lower extremities 05/25/2018 Lymphedema of both lower extremities 06/01/2018 Ulcers of both lower legs, limited to breakdown of skin (HCC) 06/01/2018 Spinal stenosis of lumbar region with neurogenic claudication Spinal stenosis, lumbar region, with neurogenic claudication 08/15/2018 Facet arthritis of lumbar region Lumbosacral spondylosis without myelopathy 08/15/2018 Foraminal stenosis of lumbar region Spinal stenosis, lumbar region, without neurogenic claudication 08/15/2018 Low back pain of over 3 months duration 08/15/2018 Lumbosacral stenosis with neurogenic claudication Spinal stenosis, lumbar region, with neurogenic claudication 08/15/2018 BMI 50.0-59.9, adult (HCC) Body Mass Index 50.0-59.9, adult 08/15/2018 Trigger finger, right ring finger 08/29/2018 Lumbar facet arthropathy Lumbosacral spondylosis without myelopathy 09/19/2018 Spinal stenosis of lumbar region with neurogenic claudication Spinal stenosis, lumbar region, with neurogenic claudication 09/19/2018 Trigger finger, right ring finger 09/27/2018 S/P trigger finger release 10/10/2018 Visit for suture removal Encounter for removal of sutures 10/10/2018 Trigger finger, left ring finger 10/10/2018 Trigger ring finger of left hand Trigger finger (acquired) 11/08/2018 Trigger ring finger of left hand Trigger finger (acquired) 11/18/2018 S/P trigger finger release 03/21/2019 Tenosynovitis of finger Other tenosynovitis of hand and wrist 03/21/2019 Trigger finger, right ring finger 03/29/2019 Lymphedema of both lower extremities 04/05/2019 Venous ulcer (HCC) Chronic ulcer of unspecified site 04/05/2019 Lymphedema of both lower extremities 04/10/2019 Ulcer of right lower extremity, unspecified ulcer stage (HCC) 04/10/2019 Lymphedema Other lymphedema 04/17/2019 Ulcer of right lower extremity, unspecified ulcer stage (HCC) 07/04/2019 Lymphedema of both lower extremities 07/04/2019 Ulcer of right lower extremity, unspecified ulcer stage (HCC) 07/07/2019 Lymphedema of both lower extremities 07/07/2019 Edema, unspecified type 07/14/2019 Encounter for change or removal of nonsurgical wound dressing 07/14/2019 Edema, unspecified type 07/20/2019 Encounter for change or removal of nonsurgical wound dressing 07/20/2019 Varicose veins of left lower extremity with pain Varicose veins of lower extremities with other complications 07/25/2019 Venous stasis ulcer of calf with bone involvement without evidence of necrosis with varicose veins, unspecified laterality (HCC) 07/25/2019 Varicose veins of right lower extremity with ulcer of calf with fat layer exposed (HCC) 07/25/2019 Ulcer of right lower extremity, unspecified ulcer stage (HCC) 08/02/2019 Lymphedema of both lower extremities 08/02/2019 Ulcer of right lower extremity, unspecified ulcer stage (HCC) 08/09/2019 Lymphedema of both lower extremities 08/09/2019 Ulcer of right lower extremity, unspecified ulcer stage (HCC) 08/16/2019 Lymphedema of both lower extremities 08/16/2019 Ulcer of right lower extremity, unspecified ulcer stage (HCC) 08/23/2019 Lymphedema of both lower extremities 08/23/2019 Ulcer of right lower extremity, unspecified ulcer stage (HCC) 08/30/2019 Lymphedema of both lower extremities 08/30/2019 Venous stasis of lower extremity Unspecified venous (peripheral) insufficiency 09/05/2019 Ulcer of right lower extremity, unspecified ulcer stage (HCC) 09/19/2019 Lymphedema of both lower extremities 09/19/2019 Ulcer of right lower extremity, unspecified ulcer stage (HCC) 10/06/2019 Venous stasis of lower extremity Unspecified venous (peripheral) insufficiency 10/12/2019 Edema, unspecified type 10/20/2019 Encounter for change or removal of nonsurgical wound dressing 10/20/2019 Ulcer of right lower extremity, unspecified ulcer stage (HCC) 10/27/2019 Lymphedema of both lower extremities 10/27/2019 Ulcer of right lower extremity, unspecified ulcer stage (HCC) 11/01/2019 Ulcer of right lower extremity, unspecified ulcer stage (HCC) 11/08/2019 Ulcer of left lower extremity, unspecified ulcer stage (HCC) 11/08/2019 Ulcer of right lower extremity, unspecified ulcer stage (HCC) 11/15/2019 Ulcer of left lower extremity, unspecified ulcer stage (HCC) 11/15/2019 Lymphedema of both lower extremities 11/15/2019 Ulcer of right lower extremity, unspecified ulcer stage (HCC) 11/22/2019 Ulcer of left lower extremity, unspecified ulcer stage (HCC) 11/22/2019 Lymphedema of both lower extremities 11/22/2019 Ulcer of right lower extremity, unspecified ulcer stage (HCC) 11/29/2019 Ulcer of left lower extremity, unspecified ulcer stage (HCC) 11/29/2019 Lymphedema of both lower extremities 11/29/2019 Ulcer of right lower extremity, unspecified ulcer stage (HCC) 12/06/2019 Ulcer of left lower extremity, unspecified ulcer stage (HCC) 12/06/2019 Lymphedema of both lower extremities 12/06/2019 Ulcer of right lower extremity, unspecified ulcer stage (HCC) 12/15/2019 Ulcer of left lower extremity, unspecified ulcer stage (HCC) 12/15/2019 Lymphedema of both lower extremities 12/15/2019 Edema, unspecified type 12/22/2019 Encounter for change or removal of nonsurgical wound dressing 12/22/2019 Ulcer of right lower extremity, unspecified ulcer stage (HCC) 12/29/2019 Ulcer of left lower extremity, unspecified ulcer stage (HCC) 12/29/2019 Ulcer of right lower extremity, unspecified ulcer stage (HCC) 01/05/2020 Lymphedema Other lymphedema 01/05/2020 Ulcer of right lower extremity, unspecified ulcer stage (HCC) 10/29/2020 Lymphedema Other lymphedema 10/29/2020 Ulcer of right lower extremity, unspecified ulcer stage (HCC) 11/12/2020 Chronic ulcer of lower extremity, right, with unspecified severity (HCC) 11/21/2020 Venous stasis of lower extremity Unspecified venous (peripheral) insufficiency 11/21/2020 Chronic ulcer of lower extremity, right, with unspecified severity (HCC) 12/05/2020 Ulcer of right lower extremity, unspecified ulcer stage (HCC) 12/10/2020 Chronic ulcer of lower extremity, right, with unspecified severity (HCC) 12/24/2020 Ulcer of right lower extremity, unspecified ulcer stage (HCC) 01/03/2021 Lymphedema Other lymphedema 01/03/2021 Encounter for change or removal of nonsurgical wound dressing 01/03/2021 Chronic ulcer of left leg, limited to breakdown of skin (HCC) 01/08/2021 Chronic ulcer of right leg, limited to breakdown of skin (HCC) 01/14/2021 Chronic ulcer of right leg, limited to breakdown of skin (HCC) 01/21/2021 Chronic ulcer of right leg, limited to breakdown of skin (HCC) 01/29/2021 Chronic ulcer of right leg, limited to breakdown of skin (HCC) 02/04/2021 Chronic ulcer of right leg, limited to breakdown of skin (HCC) 02/11/2021 Chronic ulcer of right leg, limited to breakdown of skin (HCC) 02/17/2021 Chronic ulcer of right leg, limited to breakdown of skin (HCC) 02/25/2021 Chronic ulcer of right leg, limited to breakdown of skin ([facility]) 03/05/2021 Care Teams Identification And Records Commander Relationship Specialty Start Date End Date Destiny Trinidad MD [facility] [address] [place] [id number] PCP - General Family Medicine 12/22/17
--- OUTSIDE RECORDS SUMMARY | 2024-11-14 09:26 | XMS_ITS | Encounter Summary ---
Author Organization [facility] Address [address] [place] [address] Care Team Providers Care Hospitality Aide Name Role Phone Destiny Trinidad MD Primary Care Provider [phone] Steven Ch MD Unavailable [phone] Encounter Details Date Type Department Care Team (Late st Contact Info) Description 09/24/2021 Prep for Surgery [facility] [address] [place] [address] [phone] Nav Simmons PA-C [address] [place] [phone] Preop examination (Primary Dx) Social History Tobacco Use Types Packs/Day Years Used Date Smoking Tobacco: Former Cigarettes Q uit: 1981 Smokeless Tobacco: Never Alcohol Use Standard Drinks/Week Comments Never 0 (1 standard drink = 0.6 oz pur e alcohol) Sex and Gender Information Value Date Recorded Sex Assigned at Not on file Gender Identity Not on file Sexual Orientation Not on file COVID-19 Exposure Response Date Recorded In the last month, have you been in contact with someone who was confirmed or suspected to have Coronavirus / COVID-19? No / Unsure 09/25/2021 10:12 AM EST documented as of this encounter Plan of Treatment Not on file documented as of this encounter Visit Diagnoses Diagnosis Preop examination- Primary Unspecified pre-operative examination documented in this encounter Care Teams Hospitality Aide Relationship Specialty Start Date End Date Destiny Trinidad MD [address] [address] PCP - General 09/25/21 Steven Ch MD [address] [place] [address] Drive [address]rd [place] [address] Auctioneer Art Cardiovascular Disease 09/25/21 documented as of this encounter
--- OUTSIDE RECORDS SUMMARY | 2024-11-14 09:26 | XMS_ITS | Clinical Summary ---
Author Organization [facility] Address [address] [place] [address] Care Team Providers Care Apparel Trimmings Sales Representative Name Role Phone Destiny Trinidad MD Primary Care Provider [phone] Steven Ch MD Unavailable [phone] Allergies Active Allergy Reactions Criticality Noted Date Comments Amoxicillin Rash/Dermatitis,Fever High 09/19/2021 Cephalosporins Hives High 09/19/2021 Clindamycin Rash/Dermatitis,Fever High 09/19/2021 Epanolol Hives Medium 10/24/2021 Misoprostol Hives,Itching,Fever High 09/19/2021 Nsaids Other (See Comments) 09/19/2021 S/p gastric bypass Penicillins Rash/Dermatitis,Fever High 09/19/2021 Sulfa Antibiotics Rash/Dermatitis,Fever High 021 Vancomycin Rash/Dermatitis,Fever High 09/19/2021 Medications Medication Sig Dispensed Refills Start Date End Date Status ferrous sulfate 325 (65 FE) MG tablet Take 325 mg by mouth daily. Take 2 hours before or 4 hours after acid reducers. Active sertraline (ZOLOFT) 50 MG tablet Take 50 mg by mouth daily. Active oxyCODONE (ROXICODONE) 5 MG immediate release tablet Take 5 mg by mouth 4 times daily (every 6 hours) as needed for severe pain. Active OMEprazole (PriLOSEC) 40 MG capsule Take 40 mg by mouth every morning before breakfast. Active calcium carbonate-vitamin D 600 mg-400 unit tablet Take 1 tablet by mouth daily. Active montelukast (SINGULAIR) 10 MG tablet Take 10 mg by mouth nightly. Active albuterol (PROAIR RESPICLICK) 108 (90 Base) MCG/ACT inhaler Inhale 1 puff 4 times daily (every 6 hours) as needed for wheezing. Active warfarin (COUMADIN) 6 MG tablet Take 6 mg by mouth daily at the same time. Active cyclobenzaprine (FLEXERIL) 5 MG tablet Take 5 mg by mouth 3 times daily (every 8 hours) as needed for muscle spasms. Take 1 to 2 tabs Active gabapentin (NEURONTIN) 300 MG capsule Take 300 mg by mouth 3 (three) times a day. Active nystatin (MYCOSTATIN) 630540 UNIT/GM cream Apply topically 2 (two) times a day. Active prednisoLONE acetate (PRED FORTE) 1 % ophthalmic suspension Administer 1 drop to both eyes 2 (two) times a day. Active sodium chloride (KINGS 128) 5 % ophthalmic solution Administer 1 drop to both eyes 4 (four) times a day. Active oxybutynin (DITROPAN XL) 15 MG 24 hr tablet Take 15 mg by mouth daily. Active metoPROLOL SUCCINATE (TOPROL-XL) 100 MG 24 hr tablet Take 100 mg by mouth daily. Active multivitamin (multivitamin) Tab tablet Take 1 tablet by mouth daily. Active lisinopril (PRINIVIL,ZeSTRIL ) 20 MG tablet Take 20 mg by mouth daily. Active furosemide (LASIX) 20 MG tablet Take 20 mg by mouth daily. Active tamsulosin (FLOMAX) 0.4 MG capsule Take 0.4 mg by mouth daily. Active cyanocobalamin (VITAMIN B-12) 500 MCG tablet Take 500 mcg by mouth daily. Active Calcium Carb-Cholecalcife rol (CALCIUM CARBONATE+VITAMIN D PO) Take 1,500 mg by mouth. 10/07/2021 Discontinued (Patient Discharge) Ascorbic Acid (vitamin C) 100 MG tablet Take 100 mg by mouth daily. 10/07/2021 Discontinued (Patient Discharge) Immunizations Name Administration Dates Next Due Covid-19 MRNA Vaccine - ShotClip 12+ (Purple Cap) 10/13/2021 Family History Medical History Relation Name Comments Brain cancer Father Diabetes Mother Relation Name Status Comments Father Mother Social History Tobacco Use Types Packs/Day Years Used Date Smoking Tobacco: Former Cigarettes Q uit: 1980 Smokeless Tobacco: Never Alcohol Use Standard Drinks/Week Comments Never 0 (1 standard drink = 0.6 oz pur e alcohol) Sex and Gender Information Value Date Recorded Sex Assigned at Not on file Gender Identity Not on file Sexual Orientation Not on file Last Filed Vital Signs Vital Sign Reading Time Taken Comments Blood Pressure 104/78 12/15/2021 12:55 PM EST Pulse 74 12/15/2021 12:55 PM EST Temperature 35.7 ??C (96.3 ??F) 12/15/2021 7:37 AM ES T Respiratory Rate 18 12/15/2021 12:55 PM EST Oxygen Saturation 95% 12/15/2021 12:55 PM EST Inhaled Oxygen Concentration - - Weight 172 kg (380 lb) 12/15/2021 7:37 AM EST Height 175.3 cm (5' 9 ) 12/15/2021 7:37 AM EST Body Mass Index 56.12 12/15/2021 7:37 AM EST Plan of Treatment Health Maintenance Due Date Last Done Comments Hepatitis C Virus Screening 1964 HIV Screening 1977 DTaP/Tdap/Td Vaccines (1 - Tdap) 12/18/1983 Hepatitis B Vaccines (1 of 3 - 19+ 3-dose series) 12/18/1983 Colonoscopy 2009 Pneumococcal Vaccines 50+ (1 of 1 - PCV) 2014 Zoster (Shingles) Vaccine (1 of 2) 2014 Influenza Vaccine 05/18/2024 06/17/2021, , 06/24/2012 COVID-19 Vaccine ( season) 2024 10/13/2021, 01/08/2021, 12/18/2020 Care Teams Apparel Trimmings Sales Representative Relationship Specialty Start Date End Date Destiny Trinidad MD [address] [address] PCP - General 09/25/21 Steven Ch MD [address] [place] [address] [address] [place] [address] Retail Sales Teammate Cardiovascular Disease 09/25/21
--- OUTSIDE RECORDS SUMMARY | 2024-11-14 09:26 | XMS_ITS | Encounter Summary ---
Author Organization [facility] Address [address] [place] [address] Care Team Providers Care Storage Administrator Name Role Phone Damion Maynard MD Primary Care Provider U Destiny Dewey MD Primary Care Provider [phone] Reason for Visit * Reason Comments Appointment tomorrow Unna Boot Application Encounter Details Date Type Department Care Team (Late st Contact Info) Description 02/16/2017 Telephone [facility] General Vascular Surgery [address] [facility] [address] [place] [address] Shira Meyers NP Appointment (tomorrow); Unna Boot Application Social History Tobacco Use Types Packs/Day Years Used Date Smoking Tobacco: Never Alcohol Use Standard Drinks/Week Comments Not Asked 0 (1 standard drink = 0.6 oz pur e alcohol) Sex and Gender Information Value Date Recorded Sex Assigned at Not on file Legal Sex Male 10:22 AM EDT Gender Identity Not on file Sexual Orientation Not on file documented as of this encounter Miscellaneous Notes * Telephone Encounter - Praveen Galarza - 02/16/2017 3:54 PM EDT Contacted patient - he will come for 8 am tomorrow with Shira ( waiting to find someone to open thespot -double bookinig) * Telephone Encounter - Anabel Springer - 02/16/2017 3:25 PM EDT PSS: Please see below and call pt * Telephone Encounter - Shira Meyers NP - 02/16/2017 2:28 PM EDT If he can be here by 8 then yes * Telephone Encounter - Anabel Springer - 02/16/2017 2:17 PM EDT Please see below and adv if you can see pt tomorrow morning? * Telephone Encounter - Praveen Galarza - 02/16/2017 12:34 PM EDT Patient missed last appointment for unna boots because of hospital stay He called to get appointment for only one unna boot this time Patient says he has to be seen tomorrow morning (02/17) because he is seeing a doctor at the [facility] in [place] at 10:30 - a Dr. Zelaya-who is going to want to talk to Shira Meyers about his situation. So patient is asking to be seen in time tomorrow to get to his 10 30 appointment in [place] He will be cancelling his other [place] appointment with Podiatry at 8:30. Please advise [phone] documented in this encounter Plan of Treatment Not on file documented as of this encounter Visit Diagnoses Not on filedocumented in this encounter Care Teams Storage Administrator Relationship Specialty Start Date End Date Damion Maynard MD PCP - General Family Medicine 05/20/16 12/21/17 Destiny Trinidad MD [facility] [address] [place] [address] PCP - General Family Medicine 12/22/17 documented as of this encounter
--- OUTSIDE RECORDS SUMMARY | 2024-11-14 09:26 | XMS_ITS | Encounter Summary ---
Author Organization [facility] Address [address] [place] [address] Care Team Providers Care Compound Filler Name Role Phone Damion Maynard MD Primary Care Provider U Destiny Dewey MD Primary Care Provider [phone] Reason for Visit * Reason Comments Unna Boot Application Encounter Details Date Type Department Care Team (Late st Contact Info) Description 03/30/2017 Telephone [facility] General Surgery [address] [facility] [address] [place] [address] Shira Meyers NP Unna Boot Application Social History Tobacco Use [...] encounter Miscellaneous Notes * Telephone Encounter - Miranda Barnhatr - 03/30/2017 1:25 PM EDT Scheduled tomorrow at 8. Pt notified. * Telephone Encounter - Shira Meyers NP - 03/30/2017 12:29 PM EDT 8 am tomorrow is ok, I had a cancellation * Telephone Encounter - Miranda Barnhart - 03/30/2017 12:05 PM EDT Spoke with Pt. Pt declined appt today. Offered tomorrow at 1:00. Pt declined that appt and would like something in the AM tomorrow as his has appt in the wound clinic at 8:00. Please advise thank you * Telephone Encounter - Jolene Castellano - 03/30/2017 11:59 AM EDT PSS: Please schedule * Telephone Encounter - Shira Meyers NP - 03/30/2017 10:57 AM EDT On second thought have him some at 1;20 * Telephone Encounter - Shira Meyers NP - 03/30/2017 10:47 AM EDT Please put on at 2 pm, * Telephone Encounter - Jolene Castellano - 03/30/2017 10:24 AM EDT Please see below Can he be added on somewhere? * Telephone Encounter - Praveen Galarza - 03/30/2017 9:15 AM EDT Patient last seen early February Has farrow wraps Patient took off the wraps to take a shower When he got out he found the ulcers were leaking badly on both legs He's rewrapped as best he could (no 40 minopenings this week on schedule0 Please call to advise [phone] documented in this encounter Plan of Treatment Not on file documented as of this encounter Visit Diagnoses Not on filedocumented in this encounter Care Teams Compound Filler Relationship Specialty Start Date End Date Damion Maynard MD PCP - General Family Medicine 05/20/16 12/21/17 Destiny Trinidad MD [facility] [address] [place] [address] PCP - General Family Medicine 12/22/17 documented as of this encounter
== END 2024-11-14 09:28 | disposition home or self-care (01) ==
PROVIDERS: PCP Family Medicine; Visit Provider Internal Medicine
DX: E66.01 Morbid (severe) obesity due to excess calories (principal); G47.33 Obstructive sleep apnea (adult) (pediatric); J45.909 Unspecified asthma, uncomplicated
CPT/HCPCS: 99213

== ENCOUNTER → 2024-11-14 09:01 | Outpatient (BNVA) | payer MEDICARE, MEDICAID, SELFPAY | PROVIDERS: PCP Family Medicine; Visit Provider Internal Medicine | DX: G47.33 Obstructive sleep apnea (adult) (pediatric) (principal); E66.01 Morbid (severe) obesity due to excess calories; J45.909 Unspecified asthma, uncomplicated; Z68.43 Body mass index [BMI] 50.0-59.9, adult | CPT/HCPCS: 99212 ==

== ENCOUNTER 2024-11-17 11:46 | Outpatient (AMB) | payer MEDICARE, SELFPAY ==
[2024-11-17 11:50] VITALS: BP 160/74; PULSE 85; O2SAT 96; BMI 53.9
--- NOTE | 2024-11-17 11:50 | A.OFFVIS_ITS ---
Vital Signs 11/17/24 11:50 Height 5 ft 9 in Weight 365 lb BMI 53.9 BP 160/74 H Blood Pressure Location Lt brachial Position Sitting Pulse 85 Pulse Oximetry (%) 96 Oxygen Delivery Method Room Air Intake Visit Reasons: f/u diarrhea Intake Note: Patient 6 month follow up for diarrhea. Patient cc: Diarrhea on and off, acid reflex reflex on and off with burning sensation. Denies any other GI issues for today visit. Jig Maker Required: No Accompanied by: Family/Other Allergies cefaclor [From Ceclor] Allergy (Severe, Verified 11/17/24 11:50) hives epanolol Allergy (Severe, Verified 11/17/24 11:50) hives misoprostol Allergy (Severe, Verified 11/17/24 11:50) rash NSAIDS (Non-Steroidal Anti-Inflamma Allergy (Severe, Verified 11/17/24 11:50) GI upset Penicillins Allergy (Severe, Verified 11/17/24 11:50) hives, rash, itching Sulfa (Sulfonamide Antibiotics) Allergy (Severe, Verified 11/17/24 11:50) Hives Cephalosporins Allergy (Intermediate, Verified 11/17/24 11:50) hives amoxicillin Allergy (Mild, Verified 11/17/24 11:50) rash vancomycin Allergy (Mild, Verified 11/17/24 11:50) itching clindamycin Adverse Reaction (Intermediate, Verified 11/17/24 11:50) Rash HPI HPI f/u diarrhea: Details: 58 y/o male chronic bowel issues- here for f/u Recap: he has been having abn bowel habits with variation in bowel habits he has loose stools maybe twice a week stools can smell bad can look oily as well no blood in stool he had allergy tests done and were negative weight has been stable he has eye surgeries and spine surgery coming up refluc controlled with PPI rarely uses oxycodone, few times a month he had been on welchol, simehticone trials. recnetly sent FODMAP diet as well TESTS: colonoscopy: 10/2022-- nml incl biopsies CTe: herniated stomach pouch, degen spine changes, stent -aorta INTERIM: he was doing really well with creon, minimal diarrhea no abdominal pain good appetite no nausea or vomiting EXAM: GENERAL: The patient is obese, uses walking stick VITAL SIGNS:see workflow HEENT: Nonicteric sclerae, PERRLA, EOMI. Oropharynx clear. Moist mucous membranes. Conjunctivae appear well perfused. No thyroid mass. CHEST: Chest wall is nontender. HEART: Regular rate and rhythm without murmurs. LUNGS: Clear to auscultation bilaterally. ABDOMEN: Soft, positive bowel sounds, nontender, no organomegaly.no flank tenderness SKIN: No rash, no excessive bruising, petechiae, or purpura. NEUROLOGIC: Cranial nerves II-XII intact without motor/sensory deficit. Pscyh: nml affect A/P: 1/ Pacn insuff prob from hx of gastric bypass PLAN: /1 - stop colesevelam and budeosnide, cont with creon only, we can recommence one of the other agents if needed PFSH Medical History Nocturnal hypoxemia Somnolence, daytime Loud snoring SHAYLA (obstructive sleep apnea) Paroxysmal A-fib Atrial flutter PAF (paroxysmal atrial fibrillation) On beta paty at home On anticoagulant therapy SHAYLA on CPAP Bronchial asthma Restrictive lung disease Migration of vascular stent Pulmonary embolus Family history of stent Uncomplicated opioid dependence Lymphedema Lumbar disc disease Venous stasis Hyperlipidemia Neurogenic bladder Dyspnea Lumbar disc prolapse with root compression History of kidney stones GERD (gastroesophageal reflux disease) OA (osteoarthritis) Morbid obesity Asthma Depression Essential hypertension Surgical History Hx of cervical spine surgery S/P IVC filter S/P appendectomy Hx of colonoscopy History of esophagogastroduodenoscopy (EGD) Hx of eye surgery Hx of gastric bypass Family History Mother Diabetes Father Brain cancer Sister Diabetes Sister Diabetes Sister Diabetes Brother Blind Brother No problems noted. Brother No problems noted. Brother No problems noted. Brother No problems noted. Daughter No problems noted. Daughter Mental health disorder Son Mental health disorder Son No problems noted. Son No problems noted. Social History Household Members: Children Household Members Other:: - 5 kids Housing: House Are you a primary direct care worker to a significant other at home: No Do you presently have visiting nurse or other home services: Yes (CERTIFIED NURSING ATTENDANT that visits every 3 months) Alcohol intake: former Year quit: 1979 Comment: uses cane at times- knee gives out Patient Tobacco Use Status: Never used Tobacco Second Hand Smoke Exposure: No Advance Directives Date on File: 08/14/21 service: No Current occupational status: disabled Current occupation: rt handed Physical Exam Vital Signs: Last Vital Signs Pulse 85 11/17/24 11:50 BP 160/74 H 11/17/24 11:50 Pulse Ox 96 11/17/24 11:50 Oxygen Delivery Method Room Air 11/17/24 11:50 BMI result Body Mass Index 53.9 Assessment & Plan Assessment & Plan (1) Pancreatic insufficiency: Code(s): K86.89 - Other specified diseases of pancreas Category: Medical Plan: as above Medications: Refilled [id number] 24,000-76,000 -120,000 unit (Creon) administer with meals and/or snacks 2 caps PO BID 112 caps 0RF Coding Level of Care Code Est Pt Level 3 (90134) Diagnoses Pancreatic insufficiency K86.89
--- OUTSIDE RECORDS SUMMARY | 2024-11-17 12:25 | XMS_ITS | Clinical Summary ---
Author Organization [facility] Address [address] [place] [address] Care Team Providers Care Manager Mission Name Role Phone Destiny Trinidad MD Primary Care Provider [phone] Steven Ch MD Unavailable [phone] Allergies Active Allergy Reactions Criticality Noted [...] (three) times a day. Active nystatin (MYCOSTATIN) 473416 UNIT/GM cream Apply topically 2 (two) times [...] Dates Next Due Covid-19 MRNA Vaccine - Equals6 12+ (Purple Cap) 10/13/2021 Family History Medical [...] season) 2024 10/13/2021, 01/08/2021, 12/18/2020 Care Teams Manager Mission Relationship Specialty Start Date End Date Destiny Trinidad MD [address] [address] PCP - General 09/25/21 Steven Ch MD [address] [place] [address] 3rd [place] [address] Licensing Officer Cardiovascular Disease 09/25/21
--- OUTSIDE RECORDS SUMMARY | 2024-11-17 12:26 | XMS_ITS | Continuity of Care Document ---
Author Organization [facility] Address [address] [place] [address] Care Team Providers Care Multimedia Services Manager Name Role Phone Destiny Trinidad MD Primary Care Provider [phone] Encounters Date Type Department Care Team Description 03/05/2021 Travel 03/05/2021 11:15 AM EDT Office Visit [facility] [address] [place] [phone] Stacey Barber NP Chronic ulcer of right leg, limited to breakdown of skin (HCC) (Primary Dx) 02/25/2021 Travel 02/25/2021 11:20 AM EDT Office Visit [facility] [address] [place] [phone] Stacey Barber NP Chronic ulcer of right leg, limited to breakdown of skin (HCC) (Primary Dx) 02/17/2021 Travel 02/17/2021 11:45 AM EDT Office Visit [facility] [address] [place] [phone] Stacey Barber NP Chronic ulcer of right leg, limited to breakdown of skin (HCC) (Primary Dx) 02/11/2021 Travel 02/11/2021 12:30 PM EDT Office Visit [facility] [address] [place] [phone] Stacey Barber NP Chronic ulcer of right leg, limited to breakdown of skin (HCC) (Primary Dx) 02/04/2021 Travel 02/04/2021 10:45 AM EDT Office Visit [facility] [address] [facility] [address] [place] [address] Stacey Barber NP Chronic ulcer of right leg, limited to breakdown of skin (HCC) (Primary Dx) 01/29/2021 Travel 01/29/2021 9:00 AM EDT Office Visit [facility] [address] [facility] [address] [place] [address] Stacey Barber NP Chronic ulcer of right leg, limited to breakdown of skin (HCC) (Primary Dx) 01/21/2021 Travel 01/21/2021 1:00 PM EDT Office Visit [facility] [address] [place] [address] [address] [place] [address] Stacey Barber NP Chronic ulcer of right leg, limited to breakdown of skin (HCC) (Primary Dx) 01/14/2021 Travel 01/14/2021 1:00 PM EDT Office Visit [facility] [address] [facility] [address] [place] [address] Stacey Barber NP Chronic ulcer of right leg, limited to breakdown of skin (HCC) (Primary Dx) 01/08/2021 11:15 AM EDT Office Visit [facility] [address] [facility] [address] [place] [address] Stacey Barber NP Chronic ulcer of left leg, limited to breakdown of skin (HCC) (Primary Dx) 01/03/2021 Travel 01/03/2021 11:00 AM EDT Office Visit [facility] [address] [place] [address] [address] [place] [address] Shira Meyers NP Ulcer of right lower extremity, unspecified ulcer stage (HCC) (Primary Dx); Lymphedema; Encounter for change or removal of nonsurgical wound dressing 12/24/2020 Travel 12/24/2020 1:00 PM EST Office Visit [facility] [address] [facility] [address] [place] [address] Stacey Barber NP Chronic ulcer of lower extremity, right, with unspecified severity (HCC) (Primary Dx) 12/10/2020 Travel 12/10/2020 1:15 PM EST Office Visit [facility] [address] [facility] [address] [place] [address] Stacey Barber NP Ulcer of right lower extremity, unspecified ulcer stage (HCC) (Primary Dx) 12/05/2020 Travel 12/05/2020 1:00 PM EST Office Visit [facility] [address] [address] Joshua Hendrix MD Chronic ulcer of lower extremity, right, with unspecified severity (HCC) (Primary Dx) 11/21/2020 Travel 11/21/2020 1:00 PM EST Office Visit [facility] [address] [address] Stacey Barber NP Chronic ulcer of lower extremity, right, with unspecified severity (HCC) (Primary Dx); Venous stasis of lower extremity 11/12/2020 Travel 11/12/2020 1:00 PM EST Office Visit [facility] [address] [address] Stacey Barber NP Ulcer of right lower extremity, unspecified ulcer stage (HCC) (Primary Dx) 10/29/2020 Travel 10/29/2020 2:40 PM EST Office Visit [facility] [address] [facility] [address] [place] [address] Shira Meyers NP Ulcer of right lower extremity, unspecified ulcer stage (HCC) (Primary Dx); Lymphedema 03/04/2020 Telephone [facility] [address] [facility] [address] [place] [address] St Shira Snow NP No Show 03/04/2020 Telephone [facility] [address] [facility] [address] [place] [address] St Shira Snow, 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 Equipment/supplies 01/05/2020 9:20 AM EDT Office Visit [facility] [address] [facility] [address] [place] [address] [address] OnShira meyer, 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 Ulcer of right lower extremity, unspecified ulcer stage (HCC) (Primary Dx); Lymphedema 12/29/2019 Travel 12/29/2019 9:40 AM EDT Office Visit [facility] [address] [place] [phone] St Shira Snow, 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 Ulcer of right lower extremity, unspecified ulcer stage (HCC) (Primary Dx); Ulcer of left lower extremity, unspecified ulcer stage 12/22/2019 9:20 AM EST Nurse Visit [facility] [address] [address] Shashank Shetty LPN Edema, unspecified type (Primary Dx); Encounter for change or removal of nonsurgical wound dressing 12/15/2019 8:40 AM EST Office Visit [facility] [address] [address] [address] OnShira meyer, 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 Ulcer of right lower extremity, unspecified ulcer stage (HCC) (Primary Dx); Ulcer of left lower extremity, unspecified ulcer stage; Lymphedema of both lower extremities 12/06/2019 9:00 AM EST Office Visit [facility] [address] [address] [address] OnShira meyer, 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 Ulcer of right lower extremity, unspecified ulcer stage (HCC) (Primary Dx); Ulcer of left lower extremity, unspecified ulcer stage; Lymphedema of both lower extremities 11/29/2019 8:40 AM EST Office Visit [facility] [address] [facility] [address] [place] [address] [address] Onge, Shira, 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 Ulcer of right lower extremity, unspecified ulcer stage (HCC) (Primary Dx); Ulcer of left lower extremity, unspecified ulcer stage; Lymphedema of both lower extremities 11/22/2019 8:40 AM EST Office Visit [facility] [address] [facility] [address] [place] [address] [address] Onge, Shira, 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 Ulcer of right lower extremity, unspecified ulcer stage (HCC) (Primary Dx); Ulcer of left lower extremity, unspecified ulcer stage; Lymphedema of both lower extremities 11/15/2019 8:40 AM EST Office Visit [facility] [address] [facility] [address] [place] [address] [address] Onge, Shira, 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 Ulcer of right lower extremity, unspecified ulcer stage (HCC) (Primary Dx); Ulcer of left lower extremity, unspecified ulcer stage; Lymphedema of both lower extremities 11/08/2019 8:40 AM EST Office Visit [facility] [address] [facility] [address] [place] [address] [address] Onge, Shira, 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 Ulcer of right lower extremity, unspecified ulcer stage (HCC) (Primary Dx); Ulcer of left lower extremity, unspecified ulcer stage 11/01/2019 8:00 AM EST Office Visit [facility] [address] [facility] [address] [place] [address] [address] Onge, Shira, 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 Ulcer of right lower extremity, unspecified ulcer stage (HCC) (Primary Dx) 10/27/2019 8:40 AM EST Office Visit [facility] [address] [facility] [address] [place] [address] [address] Onge, Shira, 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 Ulcer of right lower extremity, unspecified ulcer stage (HCC) (Primary Dx); Lymphedema of both lower extremities 10/20/2019 2:00 PM EST Nurse Visit [facility] [address] [facility] [address] [place] [address] Orville Gandhi LPN Edema, unspecified type (Primary Dx); Encounter for change or removal of nonsurgical wound dressing 10/12/2019 10:00 AM EST Office Visit [facility] [address] [facility] [address] [place] [address] Joshua Hendrix MD Venous stasis of lower extremity (Primary Dx) 10/06/2019 11:00 AM EST Office Visit [facility] [address] [facility] [address] [place] [address] St OnShira meyer, 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 Ulcer of right lower extremity, unspecified ulcer stage (HCC) (Primary Dx) 10/04/2019 Telephone [facility] [address] [facility] [address] [place] [address] Joshua Hendrix MD Post Op (wound care) 09/29/2019 Surgery/Major Procedure [facility] [address] [facility] [address] [place] [address] Joshua Hendrix MD 09/19/2019 2:20 PM EST Office Visit [facility] [address] [facility] [address] [place] [address] [address] OnShira meyer, 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 Ulcer of right lower extremity, unspecified ulcer stage (HCC) (Primary Dx); Lymphedema of both lower extremities 09/07/2019 Pre-Op FAM PRAC UNSPECIFIED Provider, Unknown 09/05/2019 10:00 AM EST Consult (Initial) [facility] [address] [facility] [address] [place] [address] Joshua Hendrix MD Venous stasis of lower extremity (Primary Dx) 08/30/2019 9:20 AM EST Office Visit [facility] [address] [facility] [address] [place] [address] [address] Onge Shira, 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 Ulcer of right lower extremity, unspecified ulcer stage (HCC) (Primary Dx); Lymphedema of both lower extremities 08/23/2019 9:20 AM EST Office Visit [facility] [address] [facility] [address] [place] [address] [address] Onge, Shira, 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 Ulcer of right lower extremity, unspecified ulcer stage (HCC) (Primary Dx); Lymphedema of both lower extremities 08/16/2019 9:20 AM EDT Office Visit [facility] [address] [place] [address] [address] [place] [address] [address] Onge, Shira, 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 Ulcer of right lower extremity, unspecified ulcer stage (HCC) (Primary Dx); Lymphedema of both lower extremities 08/09/2019 8:40 AM EDT Office Visit [facility] [address] [place] [address] [address] [place] [address] [address] Onge, Shira, 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 Ulcer of right lower extremity, unspecified ulcer stage (HCC) (Primary Dx); Lymphedema of both lower extremities 08/02/2019 9:20 AM EDT Office Visit [facility] [address] [place] [address] St Onge, Shira, 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 Ulcer of right lower extremity, unspecified ulcer stage (HCC) (Primary Dx); Lymphedema of both lower extremities 07/25/2019 9:00 AM EDT Office Visit [facility] [address] [place] [phone] Nav Staples MD Varicose veins of left lower extremity with pain (Primary Dx); Venous stasis ulcer of calf with bone involvement without evidence of necrosis with varicose veins, unspecified laterality (HCC); Varicose veins of right lower extremity with ulcer of calf with fat layer exposed (HCC) 07/20/2019 9:00 AM EDT Nurse Visit [facility] [address] [place] [phone] Orville Gandhi LPN Edema, unspecified type (Primary Dx); Encounter for change or removal of nonsurgical wound dressing 07/14/2019 9:20 AM EDT Nurse Visit [facility] [address] [facility] [address] [place] [address] Shashank Shetty, SUPERVISOR LOOPING Edema, unspecified type (Primary Dx); Encounter for change or removal of nonsurgical wound dressing 07/07/2019 9:40 AM EDT Office Visit [facility] [address] [facility] [address] [place] [address] Shira Meyers NP Ulcer of right lower extremity, unspecified ulcer stage (HCC) (Primary Dx); Lymphedema of both lower extremities 07/04/2019 9:00 AM EDT Office Visit [facility] [address] [facility] [address] [place] [address] Shira Meyers NP Ulcer of right lower extremity, unspecified ulcer stage (HCC) (Primary Dx); Lymphedema of both lower extremities 06/27/2019 Telephone [facility] [address] [facility] [address] [place] [address] Shira Meyers NP Discussion With Provider; Wound Care 04/17/2019 9:20 AM EDT Nurse Visit [facility] [address] [facility] [address] [place] [address] Lymphedema (Primary Dx) 04/10/2019 9:20 AM EDT Office Visit [facility] [address] [facility] [address] [place] [address] Nolvia Elkins NP Lymphedema of both lower extremities (Primary Dx); Ulcer of right lower extremity, unspecified ulcer stage (HCC) 04/05/2019 8:30 AM EDT Office Visit [facility] [address] [facility] [address] [place] [address] Theo Martinez MD Lymphedema of both lower extremities (Primary Dx); Venous ulcer (HCC) 03/29/2019 9:15 AM EDT Office Visit [facility] [address] [facility] [address] [place] [address] Nav Amato MD Trigger finger, right ring finger (Primary Dx) 03/21/2019 10:45 AM EDT Office Visit [facility] [address] [place] [phone] Renae Turner PA S/P trigger finger release (Primary Dx); Tenosynovitis of finger 11/18/2018 8:00 AM EST Office Visit [facility] [address] [place] [phone] Jeffery Manuel NP Trigger ring finger of left hand (Primary Dx) 11/08/2018 8:00 AM EST Minor Procedure/Test [facility] [address] [place] [phone] Nav Amato MD Trigger ring finger of left hand (Primary Dx) 10/10/2018 9:15 AM EST Office Visit [facility] [address] [place] [phone] Renae Turner PA S/P trigger finger release (Primary Dx); Visit for suture removal; Trigger finger, left ring finger 09/27/2018 9:00 AM EST Minor Procedure/Test [facility] [address] [place] [phone] Nav Amato MD Trigger finger, right ring finger (Primary Dx) 09/19/2018 3:45 PM EST Consult (Initial) [facility] [address] [place] [phone] Ivan Rueda MD Lumbar facet arthropathy (Primary Dx); Spinal stenosis of lumbar region with neurogenic claudication 08/29/2018 4:00 PM EST Consult (Initial) [facility] [address] [place] [phone] Renae Turner PA Trigger finger, right ring finger (Primary Dx) 08/15/2018 11:00 AM EDT Consult (Initial) [facility] [address] [facility] [address] [place] [address] Savage Jara MD Spinal stenosis of lumbar region with neurogenic claudication (Primary Dx); Facet arthritis of lumbar region (HCC); Foraminal stenosis of lumbar region; Low back pain of over 3 months duration; Lumbosacral stenosis with neurogenic claudication (HCC); BMI 50.0-59.9, adult ([facility]) 06/01/2018 9:40 AM EDT Office Visit [facility] [address] [facility] [address] [place] [address] St Onge Shira, 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 Lymphedema of both lower extremities (Primary Dx); Ulcers of both lower legs, limited to breakdown of skin (HCC) 05/25/2018 9:40 AM EDT Office Visit [facility] [address] [facility] [address] [place] [address] [address] OngeShira, 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 Ulcer of left lower extremity, unspecified ulcer stage (Primary Dx); Lymphedema of both lower extremities 05/18/2018 9:00 AM EDT Nurse Visit [facility] [address] [facility] [address] [place] [address] Shashank Shetty, SUPERVISOR LOOPING Edema, unspecified type (Primary Dx); Encounter for change or removal of nonsurgical wound dressing 05/11/2018 9:00 AM EDT Office Visit [facility] [address] [facility] [address] [place] [address] [address] Onge, Shira, 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 Lymphedema of both lower extremities (Primary Dx); Ulcers of both lower legs, limited to breakdown of skin (HCC) 05/04/2018 9:00 AM EDT Nurse Visit [facility] [address] [facility] [address] [place] [address] Orville Gandhi, SUPERVISOR LOOPING Edema, unspecified type (Primary Dx); Encounter for change or removal of nonsurgical wound dressing 04/27/2018 9:40 AM EDT Nurse Visit [facility] [address] [facility] [address] [place] [address] Shetty, Shashank, SUPERVISOR LOOPING Edema, unspecified type (Primary Dx); Encounter for change or removal of nonsurgical wound dressing 04/13/2018 9:00 AM EDT Office Visit [facility] [address] [facility] [address] [place] [address] [address] Onge, Shira, 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 Ulcers of both lower legs, limited to breakdown of skin (HCC) (Primary Dx); Lymphedema of both lower extremities 04/13/2018 11:40 AM EDT Minor Procedure/Test [facility] [phone] Roger Johnson DPM Atherosclerosis of [place] artery of both lower extremities, with unspecified presence of clinical manifestation (Primary Dx); Onychomycosis; Pain of toes of both feet 04/06/2018 9:40 AM EDT Office Visit [facility] [address] [place] [address] [address] [place] [address] [address] OnShira meyer, 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 Lymphedema of both lower extremities (Primary Dx); Ulcers of both lower legs, limited to breakdown of skin (HCC) 03/30/2018 9:00 AM EDT Nurse Visit [facility] [address] [place] [phone] Shetty, Shashank, SUPERVISOR LOOPING Edema, unspecified type (Primary Dx); Encounter for change or removal of nonsurgical wound dressing 03/23/2018 9:00 AM EDT Nurse Visit [facility] [address] [place] [phone] Shetty, Shashank, SUPERVISOR LOOPING Edema, unspecified type (Primary Dx); Encounter for change or removal of nonsurgical wound dressing 03/16/2018 9:00 AM EDT Nurse Visit [facility] [address] [place] [phone] Shetty, Shashank, SUPERVISOR LOOPING Edema, unspecified type (Primary Dx); Encounter for change or removal of nonsurgical wound dressing 03/02/2018 9:00 AM EDT Nurse Visit [facility] [address] [facility] [address] [place] [address] Orville Gandhi LPN Edema, unspecified type (Primary Dx); Encounter for change or removal of nonsurgical wound dressing 02/23/2018 9:20 AM EDT Nurse Visit [facility] [address] [facility] [address] [place] [address] St Onge, Shira, 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 Ulcers of both lower legs, limited to breakdown of skin (HCC) (Primary Dx); Lymphedema 02/18/2018 10:20 AM EDT Office Visit [facility] [address] [facility] [address] [place] [address] [address] Onge, Shira, 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 Ulcers of both lower legs, limited to breakdown of skin (HCC) (Primary Dx); Lymphedema 01/19/2018 9:30 AM EDT Nurse Visit [facility] [address] [facility] [address] [place] [address] Orville Gandhi LPN Edema, unspecified type (Primary Dx); Encounter for change or removal of nonsurgical wound dressing 01/12/2018 9:00 AM EDT Office Visit [facility] [address] [address] [address] Onge, Shira, 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 Ulcers of both lower legs, limited to breakdown of skin (HCC) (Primary Dx); Lymphedema of both lower extremities 01/05/2018 9:00 AM EDT Office Visit [facility] [address] [facility] [address] [place] [address] [address] Onge, Shira, 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 Ulcers of both lower legs, limited to breakdown of skin (HCC) (Primary Dx); Lymphedema 12/31/2017 11:20 AM EDT Nurse Visit [facility] [address] [facility] [address] [place] [address] Edema, unspecified type (Primary Dx); Encounter for change or removal of nonsurgical wound dressing 12/22/2017 9:00 AM EST Office Visit [facility] [address] [facility] [address] [place] [address] [address] Onge, Shira, 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 Ulcers of both lower legs, limited to breakdown of skin (HCC) (Primary Dx); Lymphedema 2017 8:20 AM EST Office Visit [facility] [address] [place] [address] [address] [place] [address] [address] Onge, Shira, 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 Ulcers of both lower legs, limited to breakdown of skin (HCC) (Primary Dx); Lymphedema 12/08/2017 9:00 AM EST Office Visit [facility] [address] [place] [phone] St Onge, Shira, 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 Ulcers of both lower legs, limited to breakdown of skin (HCC) (Primary Dx); Lymphedema 12/01/2017 9:00 AM EST Nurse Visit [facility] [address] [place] [phone] Jolene Castellano LPN Edema, unspecified type (Primary Dx); Encounter for change or removal of nonsurgical wound dressing 11/24/2017 9:00 AM EST Nurse Visit [facility] [address] [place] [phone] Orville Gandhi LPN Edema, unspecified type (Primary Dx); Encounter for change or removal of nonsurgical wound dressing 11/17/2017 9:00 AM EST Nurse Visit [facility] [address] [place] [phone] Orville Gandhi LPN Edema, unspecified type (Primary Dx); Encounter for change or removal of nonsurgical wound dressing 11/10/2017 9:00 AM EST Nurse Visit [facility] [address] [place] [phone] Gandhi, Orville, SUPERVISOR LOOPING Edema, unspecified type (Primary Dx); Encounter for change or removal of nonsurgical wound dressing 11/02/2017 9:00 AM EST Nurse Visit [facility] [address] [place] [address] [address] [place] [address] Orville Gandhi LPN Edema, unspecified type (Primary Dx); Encounter for change or removal of nonsurgical wound dressing 10/27/2017 10:40 AM EST Office Visit [facility] [address] [place] [address] [address] [place] [address] St Shira Snow, 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 Ulcers of both lower legs, limited to breakdown of skin (HCC) (Primary Dx); Lymphedema 10/22/2017 1:00 PM EST Nurse Visit [facility] [address] [place] [phone] Orville Gandhi LPN Edema, unspecified type (Primary Dx); Encounter for change or removal of nonsurgical wound dressing 10/19/2017 9:00 AM EST Nurse Visit [facility] [address] [place] [phone] Jolene Castellano SUPERVISOR LOOPING Edema, unspecified type (Primary Dx); Encounter for change or removal of nonsurgical wound dressing 10/15/2017 9:00 AM EST [facility] Visit [facility] Surgery [address] [place] [phone] Orville Gandhi LPN Edema, unspecified type (Primary Dx); Encounter for change or removal of nonsurgical wound dressing 10/12/2017 9:00 AM EST Nurse Visit [facility] Vascular Surgery [address] [place] [phone] Orville Gandhi LPN Edema, unspecified type (Primary Dx); Encounter for change or removal of nonsurgical wound dressing 10/07/2017 9:00 AM EST Office Visit [facility] General Surgery [address] [place] [phone] St Shira Snow, 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 Ulcers of both lower legs, limited to breakdown of skin (HCC) (Primary Dx); Lymphedema 10/05/2017 Telephone [facility] Vascular Surgery [address] [place] [phone] Shira Meyers NP Appointment 09/17/2017 8:40 AM EST Office Visit [facility] General Surgery [address] [place] [phone] Shira Meyers NP Ulcer of left lower extremity, unspecified ulcer stage (Primary Dx); Ulcer of right lower extremity, unspecified ulcer stage (HCC); Lymphedema 09/08/2017 9:40 AM EST Nurse Visit [facility] Surgery [address] [place] [phone] Orville Gandhi SUPERVISOR LOOPING Edema, unspecified type (Primary Dx); Encounter for change or removal of nonsurgical wound dressing 09/03/2017 1:20 PM EST Office Visit [facility] General Surgery [address] [place] [phone] Shira Meyers NP Ulcers of both lower legs, limited to breakdown of skin (HCC) (Primary Dx); Lymphedema 06/28/2017 9:00 AM EDT Office Visit [facility] General Surgery [address] [place] [phone] Shira Meyers NP Ulcer of lower extremity, left, with unspecified severity (Primary Dx); Ulcer of lower extremity, right, with unspecified severity (HCC); Lymphedema 06/15/2017 Telephone [facility] Surgery [address] [place] [phone] Shira Meyers NP Wound Care; Equipment/supplies 06/14/2017 9:00 AM EDT Nurse Visit [facility] Surgery [address] [place] [phone] Jolene Castellano, SUPERVISOR LOOPING Edema, unspecified type (Primary Dx); Encounter for change or removal of nonsurgical wound dressing 06/11/2017 9:00 AM EDT Nurse Visit [facility] Surgery [address] [facility] [address] [place] [address] Edema, unspecified type (Primary Dx); Encounter for change or removal of nonsurgical wound dressing 06/09/2017 10:00 AM EDT Nurse Visit [facility] Surgery [address] [facility] [address] [place] [address] Edema, unspecified type (Primary Dx); Encounter for change or removal of nonsurgical wound dressing 06/07/2017 9:00 AM EDT Nurse Visit [facility] Surgery [address] [facility] [address] [place] [address] Jolene Castellano SUPERVISOR LOOPING Edema, unspecified type (Primary Dx); Encounter for change or removal of nonsurgical wound dressing 06/02/2017 8:40 AM EDT Office Visit [facility] General Surgery [address] [facility] [address] [place] [address] [address] Onge, Shira, 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 Ulcers of both lower legs, limited to breakdown of skin (HCC) (Primary Dx); Lymphedema; Chronic venous insufficiency 05/12/2017 9:20 AM EDT Office Visit [facility] Surgery [address] [facility] [address] [place] [address] [address] Onge, Shira, 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 Ulcer of lower extremity, left, with unspecified severity (Primary Dx); Ulcer of lower extremity, right, with unspecified severity (HCC); Venous stasis of lower extremity; Lymphedema 05/05/2017 9:20 AM EDT Office Visit [facility] Surgery [address] [facility] [address] [place] [address] [address] Onge, Shira, 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 Ulcers of both lower legs, limited to breakdown of skin (HCC) (Primary Dx); Lymphedema 04/28/2017 9:20 AM EDT Office Visit [facility] Surgery [address] [facility] [address] [place] [address] St Onge, Shira, 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 Lymphedema (Primary Dx); Ulcers of both lower legs, limited to breakdown of skin (HCC) 04/22/2017 8:40 AM EDT Office Visit [facility] Surgery [address] [facility] [address] [place] [address] [address] Onge, Shira, 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 Lymphedema (Primary Dx); Ulcer of lower extremity, left, with unspecified severity; Ulcer of lower extremity, right, with unspecified severity 04/14/2017 9:20 AM EDT Office Visit [facility] Surgery [address] [facility] [address] [place] [address] [address] Onge, Shira, 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 Lymphedema (Primary Dx); Ulcers of both lower legs, limited to breakdown of skin (HCC); Venous stasis of lower extremity 04/07/2017 9:20 AM EDT Office Visit [facility] Surgery [address] [facility] [address] [place] [address] [address] Onge, Shira, 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 Lymphedema (Primary Dx); Ulcer of lower extremity, left, with unspecified severity; Ulcer of lower extremity, right, with unspecified severity 03/31/2017 8:00 AM EDT Office Visit [facility] Surgery [address] [facility] [address] [place] [address] [address] Onge, Shira, 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 Lymphedema (Primary Dx); Ulcers of both lower legs, limited to breakdown of skin (HCC); Morbid obesity due to excess calories 03/30/2017 Telephone [facility] Surgery [address] [facility] [address] [place] [address] St Onge, Shira, 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 Unna Boot Application 03/19/2017 Telephone [facility] Surgery [address] [facility] [address] [place] [address] [address] Onge, Shira, 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 No Show 02/23/2017 Telephone [facility] Surgery [address] [facility] [address] [place] [address] [address] Onge, Shira, 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 Unna Boot Application 02/20/2017 Office Visit NON FC SA NON FC UNK S[facility], Unknown Provider 02/18/2017 Consult (Initial) NON FC SA [facility] [address] [place] [address] Juanjose Watson MD 02/17/2017 [facility] NON FC SA [facility] [address] [place] [address] Tamika Lomax MD 02/17/2017 8:00 AM EDT Office Visit [facility] Surgery [address] [facility] [address] [place] [address] [address] Onge, Shira, 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 Cellulitis of right lower extremity (Primary Dx) 02/16/2017 Telephone [facility] Vascular Surgery [address] [place] [phone] St Onge, Shira, 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 Appointment (tomorrow); Unna Boot Application 02/08/2017 10:20 AM EDT Office Visit [facility] Surgery [address] [address] St Onge, Shira, 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 Lymphedema (Primary Dx); Ulcer of lower extremity, left, with unspecified severity 02/01/2017 8:20 AM EDT Office Visit [facility] Surgery [address] [address] St Onge, Shira, 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 Lymphedema (Primary Dx); Ulcer of lower extremity, left, with unspecified severity; Venous stasis of lower extremity 01/28/2017 8:20 AM EDT Office Visit [facility] Surgery [address] [address] St Onge, Shira, 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 Lymphedema (Primary Dx); Ulcer of lower extremity, left, with unspecified severity 01/25/2017 1:20 PM EDT Office Visit [facility] Surgery [address] [address] [address] Onge, Shira, 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 Lymphedema (Primary Dx); Ulcer of lower extremity, left, with unspecified severity; Ulcer of lower extremity, right, with unspecified severity 01/21/2017 2:30 PM EDT Nurse Visit [facility] [address] [place] [address] [address] [place] [address] Stinehart, Anabel, SUPERVISOR LOOPING Ulcers of both lower legs (Primary Dx); Edema, unspecified type; Encounter for change or removal of nonsurgical wound dressing 01/18/2017 8:20 AM EDT Office Visit [facility] Surgery [address] [place] [address] [address] [place] [address] [address] Onge, Shira, 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 Lymphedema (Primary Dx); Ulcer of lower extremity, left, with unspecified severity; Ulcer of lower extremity, right, with unspecified severity 01/14/2017 8:20 AM EDT Office Visit [facility] Surgery [address] [place] [phone] St Onge, Shira, 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 Lymphedema (Primary Dx); Ulcer of lower extremity, left, with unspecified severity; Ulcer of lower extremity, right, with unspecified severity; Venous stasis of lower extremity 01/11/2017 11:00 AM EDT Nurse Visit [facility] [address] [place] [phone] Stinehart, Anabel, SUPERVISOR LOOPING Edema, unspecified type (Primary Dx); Encounter for change or removal of nonsurgical wound dressing 01/06/2017 9:00 AM EDT Office Visit [facility] [address] [place] [phone] St Onge, Shira, 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 Lymphedema (Primary Dx); Ulcer of lower extremity, left, with unspecified severity; Ulcer of lower extremity, right, with unspecified severity 12/30/2016 9:00 AM EDT Office Visit [facility] [address] [place] [phone] St Onge, Shira, 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 Lymphedema (Primary Dx); Ulcer of lower extremity, left, with unspecified severity; Ulcer of lower extremity, right, with unspecified severity 12/23/2016 9:00 AM EST Office Visit [facility] Surgery [address] [place] [address] [address] [place] [address] [address] Onge, Shira, 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 Lymphedema (Primary Dx); Ulcer of lower extremity, left, with unspecified severity; Ulcer of lower extremity, right, with unspecified severity 12/16/2016 1:20 PM EST Office Visit [facility] Surgery [address] [place] [address] [address] [place] [address] St Onge, Shira, 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 Ulcer of lower extremity, right, with unspecified severity (Primary Dx); Lymphedema; Ulcer of lower extremity, left, with unspecified severity 12/09/2016 9:00 AM EST Office Visit [facility] Surgery [address] [place] [address] [address] [place] [address] [address] Onge, Shira, 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 Ulcer of lower extremity, right, with unspecified severity (Primary Dx); Lymphedema; Ulcer of lower extremity, left, with unspecified severity 12/02/2016 10:00 AM EST Office Visit [facility] Surgery [address] [place] [phone] St Onge, Shira, 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 Ulcer of lower extremity, right, with unspecified severity (Primary Dx); Lymphedema; Ulcer of lower extremity, left, with unspecified severity 11/25/2016 11:00 AM EST Office Visit [facility] Surgery [address] [place] [phone] St Onge, Shira, 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 Lymphedema (Primary Dx); Ulcer of lower extremity, left, with unspecified severity [L97.929]; Ulcer of lower extremity, right, with unspecified severity [L97.919] 11/25/2016 8:00 AM EST Minor Procedure/Test [facility] [address] [place] [phone] Roger Johnson DPM Onychomycosis (Primary Dx); Pain in toes of both feet [M79.674, M79.675] 11/19/2016 8:20 AM EST Office Visit [facility] Surgery [address] [facility] [address] [place] [address] [address] Onge, Shira, 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 Lymphedema (Primary Dx); Ulcer of lower extremity, left, with unspecified severity [L97.929]; Ulcer of lower extremity, right, with unspecified severity [L97.919]; Venous stasis of lower extremity 11/11/2016 9:00 AM EST Office Visit [facility] Surgery [address] [facility] [address] [place] [address] St Onge, Shira, 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 Lymphedema (Primary Dx); Ulcer of lower extremity, left, with unspecified severity [L97.929]; Ulcer of lower extremity, right, with unspecified severity [L97.919] 11/04/2016 9:00 AM EST Office Visit [facility] Surgery [address] [place] [address] [address] [place] [address] St Onge, Shira, 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 Lymphedema (Primary Dx); Ulcer of lower extremity, left, with unspecified severity [L97.929]; Ulcer of lower extremity, right, with unspecified severity [L97.919] 10/28/2016 9:20 AM EST Office Visit [facility] Surgery [address] [facility] [address] [place] [address] St Onge, Shira, 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 Lymphedema (Primary Dx); Ulcer of lower extremity, left, with unspecified severity [L97.929]; Ulcer of lower extremity, right, with unspecified severity [L97.919]; Chronic venous insufficiency 10/21/2016 10:40 AM EST Office Visit [facility] Surgery [address] [facility] [address] [place] [address] St Onge, Shira, 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 Ulcer of lower extremity, left, with unspecified severity [L97.929] (Primary Dx); Ulcer of lower extremity, right, with unspecified severity [L97.919]; Venous stasis of lower extremity 10/14/2016 8:20 AM EST Office Visit [facility] Vascular Surgery [address] [facility] [address] [place] [address] [address] Onge, Shira, 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 Lymphedema (Primary Dx); Ulcer of lower extremity, left, with unspecified severity [L97.929]; Ulcer of lower extremity, right, with unspecified severity [L97.919] 10/07/2016 9:00 AM EST Office Visit [facility] Surgery [address] [facility] [address] [place] [address] [address] Onge, Shira, 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 Ulcer of lower extremity, left, with unspecified severity [L97.929] (Primary Dx); Ulcer of lower extremity, right, with unspecified severity [L97.919]; Venous stasis of lower extremity 09/30/2016 9:15 AM EST Nurse Visit [facility] Surgery [address] [place] [address] [address] [place] [address] Anabel Springer LPN Ulcers of both lower legs (Primary Dx); Edema, unspecified type [R60.9]; Encounter for change or removal of nonsurgical wound dressing 09/06/2016 [facility] [address] [place] [address] Jennifer Gibbons MD 09/02/2016 8:40 AM EST Office Visit [facility] Surgery [address] [place] [phone] St Onge Shira, 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 Lymphedema (Primary Dx); Leg ulcer, left, with unspecified severity; Ulcer of lower extremity, right, with unspecified severity [L97.919] 08/27/2016 8:20 AM EST Office Visit [facility] Surgery [address] [facility] [address] [place] [address] St Onge Shira, 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 Lymphedema (Primary Dx); Ulcer of lower extremity, left, with unspecified severity [L97.929]; Ulcer of lower extremity, right, with unspecified severity [L97.919] 08/19/2016 Telephone [facility] Surgery [address] [place] [address] [address] [place] [address] Shira Meyers 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 08/19/2016 8:40 AM EDT Office Visit [facility] Surgery [address] [facility] [address] [place] [address] Shira Meyers NP Lymphedema (Primary Dx); Ulcer of lower extremity, left, with unspecified severity [L97.929]; Ulcer of lower extremity, right, with unspecified severity [L97.919] 08/05/2016 9:15 AM EDT Nurse Visit [facility] Surgery [address] [facility] [address] [place] [address] Stinehart, Anabel, SUPERVISOR LOOPING Bilateral leg ulcer, with unspecified severity (Primary Dx); Edema, unspecified type [R60.9]; Encounter for change or removal of nonsurgical wound dressing 07/29/2016 8:40 AM EDT Office Visit [facility] Surgery [address] [facility] [address] [place] [address] Shira Meyers NP Ulcer of lower extremity, left, with unspecified severity [L97.929] (Primary Dx); Ulcer of lower extremity, right, with unspecified severity [L97.919]; Lymphedema 07/15/2016 9:00 AM EDT Nurse Visit [facility] Surgery [address] [place] [phone] Stinehart, Anabel, SUPERVISOR LOOPING Edema, unspecified type [R60.9] (Primary Dx); Encounter for change or removal of nonsurgical wound dressing; Bilateral leg ulcer, with unspecified severity 07/08/2016 9:00 AM EDT Nurse Visit [facility] Surgery [address] [place] [address] [address] [place] [address] Stinehart, Anabel, SUPERVISOR LOOPING Edema, unspecified type [R60.9] (Primary Dx); Encounter for change or removal of nonsurgical wound dressing 07/01/2016 9:00 AM EDT Nurse Visit [facility] Surgery [address] [facility] [address] [place] [address] Stinehart, Anabel, SUPERVISOR LOOPING Edema, unspecified type [R60.9] (Primary Dx); Encounter for change or removal of nonsurgical wound dressing; Bilateral leg ulcer, with unspecified severity 06/24/2016 9:00 AM EDT Nurse Visit [facility] Surgery [address] [facility] [address] [place] [address] Essie Fuller, MATCH MAKER Edema, unspecified type [R60.9] (Primary Dx); Encounter for change or removal of nonsurgical wound dressing; Ulcer of calf, unspecified laterality, with unspecified severity (HCC) [L97.209] 06/17/2016 9:20 AM EDT Office Visit [facility] [address] [facility] [address] [place] [address] Shira Meyers NP Ulcer of lower extremity, left, with unspecified severity (HCC) [L97.929] (Primary Dx); Ulcer of lower extremity, right, with unspecified severity (HCC) [L97.919]; Chronic venous insufficiency 06/10/2016 9:00 AM EDT Nurse Visit [facility] [address] [facility] [address] [place] [address] Stinehart, Anabel, SUPERVISOR LOOPING Ulcers of both lower extremities (HCC) (Primary Dx); Edema, unspecified type [R60.9]; Encounter for change or removal of nonsurgical wound dressing 06/03/2016 9:00 AM EDT Nurse Visit [facility] [address] [facility] [address] [place] [address] Stinehart, Anabel, SUPERVISOR LOOPING Edema, unspecified type [R60.9] (Primary Dx); Encounter for change or removal of nonsurgical wound dressing; Ulcer of lower extremity, unspecified laterality, with unspecified severity 05/27/2016 9:00 AM EDT Nurse Visit [facility] [address] [facility] [address] [place] [address] Stinehart, Anabel, SUPERVISOR LOOPING Edema, unspecified type [R60.9] (Primary Dx); Encounter for change or removal of nonsurgical wound dressing; Ulcers of both lower extremities (HCC) 05/20/2016 10:20 AM EDT Office Visit [facility] [address] [facility] [address] [place] [address] [address] Onge, Shira, 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 Ulcer of lower extremity, left, with unspecified severity (HCC) [L97.929] (Primary Dx); Ulcer of lower extremity, right, with unspecified severity (HCC) [L97.919]; Edema, unspecified type [R60.9]; Venous stasis of lower extremity 05/06/2016 8:40 AM EDT Nurse Visit [facility] [address] [facility] [address] [place] [address] St Onge, Shira, 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 Ulcer of lower extremity, left, with unspecified severity (HCC) [L97.929] (Primary Dx); Ulcer of lower extremity, right, with unspecified severity (HCC) [L97.919]; Venous stasis of lower extremity 04/29/2016 8:30 AM EDT Nurse Visit [facility] [address] [facility] [address] [place] [address] Stinehart, Anabel, SUPERVISOR LOOPING Ulcers of both lower extremities (HCC) (Primary Dx); Edema, unspecified type [R60.9]; Encounter for change or removal of nonsurgical wound dressing 04/22/2016 9:00 AM EDT Nurse Visit [facility] [address] [facility] [address] [place] [address] Stinehart, Anabel, SUPERVISOR LOOPING Edema, unspecified type [R60.9] (Primary Dx); Encounter for change or removal of nonsurgical wound dressing 04/15/2016 9:00 AM EDT Office Visit [facility] [address] [facility] [address] [place] [address] St Onge, Shira, 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 Ulcer of lower extremity, left, with unspecified severity (HCC) [L97.929] (Primary Dx); Venous stasis of lower extremity 04/09/2016 2:30 PM EDT Nurse Visit [facility] [address] [facility] [address] [place] [address] Stinehart, Anabel, SUPERVISOR LOOPING Edema, unspecified type [R60.9] (Primary Dx); Encounter for change or removal of nonsurgical wound dressing 04/02/2016 9:15 AM EDT Nurse Visit [facility] [address] [facility] [address] [place] [address] Stinehart, Anabel, SUPERVISOR LOOPING Bilateral leg ulcer, with unspecified severity (Primary Dx); Edema, unspecified type [R60.9]; Encounter for change or removal of nonsurgical wound dressing 03/18/2016 8:30 AM EDT Nurse Visit [facility] [address] [place] [address] [address] [place] [address] Stinehart, Anabel, SUPERVISOR LOOPING Edema, unspecified type [R60.9] (Primary Dx); Encounter for change or removal of nonsurgical wound dressing 03/12/2016 Telephone [facility] [address] [place] [phone] Tamika Lomax MD Results 03/12/2016 2:00 PM EDT Office Visit [facility] [address] [place] [phone] Tamika Lomax MD Bilateral leg ulcer, limited to breakdown of skin (HCC) (Primary Dx); Presence of IVC filter 03/11/2016 8:20 AM EDT Office Visit [facility] [address] [place] [address] St OnShira meyer NP Lymphedema (Primary Dx); Ulcer of lower extremity, left, with unspecified severity (HCC) [L97.929]; Ulcer of lower extremity, right, with unspecified severity (HCC) [L97.919] 03/05/2016 8:20 AM EDT Office Visit [facility] [address] [facility] [address] [place] [address] [address] Onge, Shira, 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 Lymphedema (Primary Dx); Ulcer of lower extremity, left, with unspecified severity (HCC) [L97.929]; Ulcer of lower extremity, right, with unspecified severity (HCC) [L97.919] 02/26/2016 3:00 PM EDT Office Visit [facility] [address] [facility] [address] [place] [address] St Onge, Shira, 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 Ulcer of lower extremity, left, with unspecified severity (HCC) [L97.929] (Primary Dx); Ulcer of lower extremity, right, with unspecified severity (HCC) [L97.919]; Lymphedema 02/13/2016 2:15 PM EDT Office Visit [facility] [address] [address] Tamika Lomax MD Venous stasis dermatitis of both lower extremities (Primary Dx) 02/06/2016 Telephone [facility] [address] [place] [phone] Roger Johnson DPM FYAric 01/15/2016 8:20 AM EDT Office Visit [facility] [address] [facility] [address] [place] [address] [address] Onge, Shira, 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 Lymphedema (Primary Dx); Ulcer of lower extremity, left, with unspecified severity (HCC) [L97.929] 01/09/2016 8:20 AM EDT Office Visit [facility] [address] [facility] [address] [place] [address] [address] Onge, Shira, 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 Ulcer of lower extremity, left, with unspecified severity (HCC) [L97.929] (Primary Dx); Ulcer of lower extremity, right, with unspecified severity (HCC) [L97.919]; Lymphedema; Chronic venous insufficiency 2015 8:30 AM EST Nurse Visit [facility] [address] [facility] [address] [place] [address] Stinehart, Anabel, SUPERVISOR LOOPING Ulcer of lower extremity, unspecified laterality, with unspecified severity (Primary Dx); Edema, unspecified type [R60.9]; Encounter for change or removal of nonsurgical wound dressing 12/10/2015 8:00 AM EST Office Visit [facility] [address] [facility] [address] [place] [address] [address] Shira Snow NP Lymphedema (Primary Dx); Ulcer of lower extremity, left, with unspecified severity (HCC) [L97.929]; Venous stasis of lower extremity 11/04/2015 10:00 AM EST Nurse Visit [facility] [address] [place] [address] [address] [place] [address] Stinehart, Anabel, SUPERVISOR LOOPING Edema, unspecified type [R60.9] (Primary Dx); Encounter for change or removal of nonsurgical wound dressing 11/01/2015 9:15 AM EST Nurse Visit [facility] [address] [place] [address] Stinehart, Anabel, SUPERVISOR LOOPING Encounter for change or removal of nonsurgical wound dressing (Primary Dx); Ulcer of lower extremity, unspecified laterality, with unspecified severity 10/31/2015 11:20 AM EST Office Visit [facility] [address] [place] [address] Roger Johnson DPM Atherosclerosis of [place] artery of both lower extremities, with unspecified presence of clinical manifestation (HCC) [I70.203] (Primary Dx); Onychomycosis; Pain of toes of both feet 10/28/2015 9:15 AM EST Nurse Visit [facility] [address] [place] [address] Stinehart, Anabel, SUPERVISOR LOOPING Ulcer of lower extremity, unspecified laterality, with unspecified severity (Primary Dx); Encounter for change or removal of nonsurgical wound dressing 10/24/2015 9:00 AM EST Office Visit [facility] [address] [facility] [address] [place] [address] [address] Onbetsy Shira, 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 Ulcer of lower extremity, right, with unspecified severity (HCC) [L97.919] (Primary Dx); Chronic venous insufficiency; Venous stasis of lower extremity; Morbid obesity, unspecified obesity type (HCC) [E66.01]; Ulcer of lower extremity, left, with unspecified severity (HCC) [L97.929] 10/14/2015 8:30 AM EST Nurse Visit [facility] [address] [place] [phone] Anabel Springer, SUPERVISOR LOOPING Leg ulcer, unspecified laterality, with unspecified severity (Primary Dx); Generalized edema [R60.1]; Encounter for change or removal of nonsurgical wound dressing 10/03/2015 8:45 AM EST Nurse Visit [facility] [address] [place] [address] [address] [place] [address] Anabel Springer, SUPERVISOR LOOPING Non-pressure ulcer of lower extremity, unspecified laterality, with unspecified severity (HCC) (Primary Dx); Generalized edema [R60.1]; Encounter for change or removal of nonsurgical wound dressing 09/26/2015 8:20 AM EST Office Visit [facility] [address] [facility] [address] [place] [address] [address] RolandoShira meyer, 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 Ulcer of lower extremity, left, with unspecified severity (HCC) [L97.929] (Primary Dx); Ulcer of lower extremity, right, with unspecified severity (HCC) [L97.919]; Edema, due to unspecified malnutrition type, unspecified edema; Morbid obesity, unspecified obesity type (HCC) [E66.01] 09/19/2015 8:30 AM EST Nurse Visit [facility] [address] [facility] [address] [place] [address] Stinehart, Anabel, SUPERVISOR LOOPING Ulcer of lower extremity, unspecified laterality, with unspecified severity (Primary Dx); Generalized edema [R60.1]; Encounter for change or removal of nonsurgical wound dressing 09/06/2015 9:45 AM EST Nurse Visit [facility] [address] [facility] [address] [place] [address] Stinehart, Anabel, SUPERVISOR LOOPING Ulcers of both lower extremities (HCC) (Primary Dx); Edema, unspecified edema [R60.9]; Encounter for change or removal of nonsurgical wound dressing 08/29/2015 8:20 AM EST Office Visit [facility] [address] [facility] [address] [place] [address] [address] OnShira meyer, 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 Ulcer of lower extremity, left, with unspecified severity (HCC) [L97.929] (Primary Dx); Ulcer of lower extremity, right, with unspecified severity (HCC) [L97.919]; Venous stasis of lower extremity; Morbid obesity, unspecified obesity type (HCC) [E66.01] 08/22/2015 8:30 AM EST Nurse Visit [facility] [address] [facility] [address] [place] [address] Stinehart, Anabel, SUPERVISOR LOOPING Edema, unspecified edema [R60.9] (Primary Dx); Encounter for change or removal of nonsurgical wound dressing 08/15/2015 8:30 AM EDT Nurse Visit [facility] [address] [facility] [address] [place] [address] Stinehart, Anabel, SUPERVISOR LOOPING Generalized edema [R60.1] (Primary Dx); Encounter for change or removal of nonsurgical wound dressing 08/08/2015 8:45 AM EDT Nurse Visit [facility] [address] [facility] [address] [place] [address] Stinehart, Anabel, SUPERVISOR LOOPING 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); Varicose veins of left lower extremity with inflammation; Edema, unspecified edema [R60.9]; Encounter for change or removal of nonsurgical wound dressing 08/01/2015 8:20 AM EDT Office Visit [facility] [address] [facility] [address] [place] [address] Shira Meyers NP Venous stasis dermatitis of both lower extremities [I83.11, I83.12] (Primary Dx); Morbid obesity, unspecified obesity type (HCC) [E66.01]; Ulcer of lower extremity, right, with unspecified severity (HCC) [L97.919]; Venous stasis of lower extremity 07/26/2015 10:30 AM EDT Nurse Visit [facility] [address] [facility] [address] [place] [address] Stinehart, Anabel, SUPERVISOR LOOPING Edema, unspecified edema [R60.9] (Primary Dx); Encounter for change or removal of nonsurgical wound dressing 07/08/2015 11:00 AM EDT Nurse Visit [facility] [address] [facility] [address] [place] [address] Stinehart, Anabel, SUPERVISOR LOOPING Ulcers of both lower extremities (HCC) (Primary Dx); Generalized edema [782.3]; Encounter for change or removal of nonsurgical wound dressing 07/08/2015 Telephone [facility]rology [address] [facility] [address] [place] [address] Shira Meyers NP Unna Boot Application 06/28/2015 2:45 PM EDT Nurse Visit [facility] [address] [facility] [address] [place] [address] Stinehart, Anabel, SUPERVISOR LOOPING Ulcers of both lower extremities (HCC) (Primary Dx); Encounter for change or removal of nonsurgical wound dressing 06/21/2015 10:00 AM EDT Nurse Visit [facility] [address] [facility] [address] [place] [address] Stinehart, Anabel, SUPERVISOR LOOPING Ulcer of lower extremity, unspecified laterality, with unspecified severity (Primary Dx); Edema; Encounter for change or removal of nonsurgical wound dressing 06/11/2015 9:45 AM EDT Nurse Visit [facility] [address] [facility] [address] [place] [address] Spenser Avilesa, SUPERVISOR LOOPING Edema (Primary Dx); Encounter for change or removal of nonsurgical wound dressing; Ulcer of calf, unspecified laterality, with unspecified severity (HCC) [707.12] 06/05/2015 9:15 AM EDT Nurse Visit [facility] [address] [place] [address] [address] [place] [address] Angela Aviles, SUPERVISOR LOOPING Edema (Primary Dx); Encounter for change or removal of nonsurgical wound dressing; Ulcer of calf, unspecified laterality, with unspecified severity (HCC) [707.12] 05/30/2015 10:20 AM EDT Office Visit [facility] [address] [place] [address] Shira Meyers, AZRA Morbid obesity (Primary Dx); Ulcer of lower extremity, right, with unspecified severity (HCC) [707.10]; Ulcer of lower extremity, left, with unspecified severity (HCC) [707.10]; Chronic venous insufficiency; Venous stasis of lower extremity 03/15/2015 8:40 AM EDT Office Visit [facility] [address] [place] [address] St Shira Snow, 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 Edema (Primary Dx); Ulcers of both lower legs 03/08/2015 9:00 AM EDT Nurse Visit [facility] [address] [place] [address] [address] [place] [address] Spenser Avilesa, SUPERVISOR LOOPING Edema (Primary Dx); Encounter for change or removal of nonsurgical wound dressing; Ulcer of calf, unspecified laterality, with unspecified severity (HCC) [707.12]; Ulcer of ankle, unspecified laterality, with unspecified severity (HCC) [707.13] 03/04/2015 8:45 AM EDT Nurse Visit [facility] [address] [facility] [address] [place] [address] Angela Aviles, SUPERVISOR LOOPING Edema (Primary Dx); Encounter for change or removal of nonsurgical wound dressing 02/22/2015 9:00 AM EDT Nurse Visit [facility] [address] [facility] [address] [place] [address] Angela Aviles, SUPERVISOR LOOPING Edema (Primary Dx); Encounter for change or removal of nonsurgical wound dressing 02/15/2015 8:40 AM EDT Office Visit [facility] [address] [facility] [address] [place] [address] [address] OnShira meyer, AZRA Edema (Primary Dx); Ulcer of lower extremity, right, with unspecified severity (HCC) [707.10]; Venous stasis of lower extremity 02/05/2015 2:00 PM EDT Nurse Visit [facility] [address] [facility] [address] [place] [address] Beba Parker LPN Ulcer of lower limb (Primary Dx); Edema; Encounter for change or removal of nonsurgical wound dressing 02/05/2015 Telephone [facility] [address] [facility] [address] [place] [address] [address] OngeShira, 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 Edema 12/28/2014 8:20 AM EDT Office Visit [facility] [address] [facility] [address] [place] [address] [address] OngeShira, 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 Edema (Primary Dx); Ulcer of lower extremity (HCC); Venous stasis of lower extremity 12/21/2014 9:15 AM EST Nurse Visit [facility] [address] [facility] [address] [place] [address] Essie Fuller LVN LPN Edema (Primary Dx); Encounter for change or removal of nonsurgical wound dressing; Ulcer of calf (HCC) 12/14/2014 8:30 AM EST Nurse Visit [facility] [address] [facility] [address] [place] [address] Parker, Yalissa, SUPERVISOR LOOPING Edema (Primary Dx); Encounter for change or removal of nonsurgical wound dressing 12/07/2014 8:20 AM EST Office Visit [facility] [address] [address] Shira Meyers NP Ulcer of lower extremity (HCC) (Primary Dx); Venous stasis of lower extremity 12/03/2014 9:00 AM EST Nurse Visit [facility] [address] [place] [address] Stinehart, Anabel, SUPERVISOR LOOPING Edema (Primary Dx); Encounter for change or removal of nonsurgical wound dressing 11/23/2014 9:00 AM EST Nurse Visit [facility] [address] [place] [address] Parker, Yalissa, SUPERVISOR LOOPING Edema (Primary Dx); Encounter for change or removal of nonsurgical wound dressing 11/16/2014 9:00 AM EST Nurse Visit [facility] [address] [place] [address] Stinehart, Anabel, SUPERVISOR LOOPING Edema (Primary Dx); Encounter for change or removal of nonsurgical wound dressing 11/15/2014 Telephone [facility] [address] [place] [address] Roger Johnson DPM FYAric 11/09/2014 8:40 AM EST Office Visit [facility] [address] [place] [address] Shira Meyers NP Ulcer of lower extremity (HCC) (Primary Dx); Venous stasis of lower extremity 08/22/2014 3:30 PM EST Minor Procedure/Test [facility] [address] [place] [address] Roger Johnson, LANCE Type II diabetes mellitus with peripheral circulatory disorder (Primary Dx); Onychomycosis; Peripheral angiopathy in diseases classified elsewhere; Pain in limb 08/09/2014 Telephone [facility] [address] [facility] [address] [place] [address] Shira Meyers NP Patient Questions ; Equipment/supplies 08/09/2014 8:20 AM EDT Office Visit [facility] [address] [facility] [address] [place] [address] Shira Meyers NP Lymphedema (Primary Dx); Ulcer of lower extremity (HCC); Chronic venous insufficiency 07/26/2014 8:20 AM EDT Office Visit [facility] [address] [facility] [address] [place] [address] Shira Meyers NP Ulcer of lower extremity (HCC) (Primary Dx); Chronic venous insufficiency; Morbid obesity; Venous stasis of lower extremity 07/25/2014 Telephone [facility] [address] [facility] [address] [place] [address] Tamika Lomax MD Wound Care; Equipment/supplies 07/20/2014 10:00 AM EDT Office Visit [facility] [address] [facility] [address] [place] [address] Tamika Lomax MD Venous stasis dermatitis (Primary Dx); Venous ulcer of leg (HCC) 05/31/2014 8:40 AM EDT Office Visit [facility] [address] [facility] [address] [place] [address] Shira Meyers NP Ulcer of lower extremity (HCC) (Primary Dx); Chronic venous insufficiency 05/04/2014 Telephone [facility] [address] [facility] [address] [place] [address] Shira Meyers NP No Show 03/29/2014 10:00 AM EDT Office Visit [facility] [address] [facility] [address] [place] [address] St Shira Snow NP Morbid obesity (Primary Dx); Ulcer of lower extremity (HCC); Venous stasis of lower extremity 02/26/2014 10:00 AM EDT Office Visit [facility] [address] [facility] [address] [place] [address] St OnShira meyer NP Ulcer of lower extremity (HCC) (Primary Dx); Venous stasis of lower extremity 01/29/2014 1:20 PM EDT Office Visit [facility] [address] [facility] [address] [place] [address] St Shira Snow NP Ulcer of lower extremity (HCC) (Primary Dx); Venous stasis of lower extremity; Morbid obesity 01/23/2014 11:00 AM EDT Office Visit [facility] [address] [facility] [address] [place] [address] St Shira Snow NP Edema (Primary Dx); Morbid obesity; Ulcer of lower extremity (HCC); Venous stasis of lower extremity 01/16/2014 11:00 AM EDT Office Visit [facility] [address] [facility] [address] [place] [address] St Shira Snow NP Morbid obesity (Primary Dx); Venous stasis of lower extremity; Edema; Ulcer of lower extremity (HCC) 11/23/2013 Telephone [facility] [address] [place] [phone] Roger Johnson DPM FYAric 11/22/2013 Telephone [facility] [address] [facility] [address] [place] [address] St Shira Snow NP No Show 10/10/2013 10:40 AM EST Office Visit [facility] [address] [facility] [address] [place] [address] [address] Onbetsy Shira, 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 Ulcer of lower extremity (HCC) (Primary Dx); Venous stasis of lower extremity 09/05/2013 9:20 AM EST Office Visit [facility] [address] [facility] [address] [place] [address] [address] Onge Shira, 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 Morbid obesity (Primary Dx); Ulcer of lower extremity (HCC); Chronic venous insufficiency 08/15/2013 9:40 AM EDT Office Visit [facility] [address] [facility] [address] [place] [address] [address] Onge Shira, 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 Morbid obesity (Primary Dx); Ulcer of lower extremity (HCC); Venous stasis of lower extremity 08/09/2013 1:30 PM EDT Consult (Initial) [facility] [address] [place] [phone] Roger Johnson DPM Type II diabetes mellitus with peripheral circulatory disorder (Primary Dx); Onychomycosis; Peripheral angiopathy in diseases classified elsewhere; Pain in limb 07/24/2013 10:30 AM EDT Office Visit [facility] [address] [facility] [address] [place] [address] Tamika Lomax MD Venous ulcer of leg (HCC) (Primary Dx); Venous insufficiency 07/07/2013 9:00 AM EDT Office Visit [facility] [address] [facility] [address] [place] [address] [address] OnShira meyer, 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 Ulcer of lower extremity (HCC) (Primary Dx); Venous stasis of lower extremity; Morbid obesity 06/21/2013 2:30 PM EDT Office Visit [facility] [address] [facility] [address] [place] [address] Tamika Lomax MD Venous ulcer of leg (HCC) (Primary Dx) 06/15/2013 Telephone [facility] [address] [facility] [address] [place] [address] Tamika Lomax MD Wound Care 06/14/2013 Minor Procedure/Test NON FC [facility] [address] [place] [address] Tamika Lomax MD 06/09/2013 Orders Only [facility] Cardiology [address] [facility] [address] [place] [address] Shilpi Vasquez Tech 06/09/2013 9:00 AM EDT Nurse Visit [facility] Pre-Admission Testing [address] [address] Ally Ervin RN Leg ulcer (HCC) (Primary Dx) 06/09/2013 8:00 AM EDT Office Visit [facility] Pre-Admission Testing [address] [address] Yolande Garcia NP Pre-operative examination (Primary Dx); Venous ulcer of leg (HCC); Deep vein thrombosis (HCC); HTN (hypertension); Sleep apnea; Spinal stenosis 06/07/2013 2:45 PM EDT Office Visit [facility] [address] [facility] [address] [place] [address] Tamika Lomax MD Leg ulcer (HCC) (Primary Dx); Venous stasis 05/31/2013 9:00 AM EDT Nurse Visit [facility] [address] [facility] [address] [place] [address] Anabel Springer LPN Ulcer of lower extremity (HCC) (Primary Dx); Edema; Encounter for change or removal of nonsurgical wound dressing 05/24/2013 9:20 AM EDT Office Visit [facility] [address] [facility] [address] [place] [address] Shira Meyers NP Ulcer of lower extremity (HCC) (Primary Dx); Venous stasis of lower extremity 05/18/2013 Orders Only FAM PRAC UNSPECIFIED Malik Nolan DO 05/17/2013 9:15 AM EDT Nurse Visit [facility] [address] [facility] [address] [place] [address] Anabel Springer LPN Edema (Primary Dx); Encounter for change or removal of nonsurgical wound dressing; Ulcer of calf (HCC) 05/10/2013 9:15 AM EDT Nurse Visit [facility] [address] [facility] [address] [place] [address] Anabel Springer LPN Ulcer of lower extremity (HCC) (Primary Dx); Edema; Encounter for change or removal of nonsurgical wound dressing 05/03/2013 9:20 AM EDT Office Visit [facility] [address] [facility] [address] [place] [address] Shira Meyers NP Morbid obesity (Primary Dx); Ulcer of lower extremity (HCC); Venous stasis of lower extremity 04/26/2013 9:20 AM EDT Consult (Initial) [facility] [address] [facility] [address] [place] [address] Shira Meyers NP Ulcer of lower extremity [...] stasis 1 PATCH DAILY Active NYSTATIN, TOPICAL, [id number] U/GM OintmentIndicati ons:Leg ulcer (HCC),Venous stasis None [...] Name Administration Dates Next Due COVID-19, mRNA ([employer] Pre F 2022) Monovalent, 30 mcg/0.3 ml 10/15/2021,01/08/2021,12/18/2020 Covid-19, mRNA ([employer] Pre F 2022) Monovalent, 30 mcg/0.3 ml opal-sucrose (12+) 05/21/2022 Influenza,injectable,quad,Prsrv Fr 06/17/2021, Influenza,injectable,quad,pr eserva tive 07/06/2019,08/02/2018,06/29/2017, 01 6,07/02/2015 Influenza,recombinant,quad,i njecta ble,Prsrv Fr 07/21/2022 Influenza,seasonal,trivalent ,prese rvative (FLUZONE MDV) 06/24/2012 PPV23 (Pneumovax) 09/25/2017 Tdap 12/07/2019 Zoster (Shingrix) 07/22/2022,05/06/2022 Social History Smoking Status as of 11/17/2024 Tobacco Use Types Packs/Day Years Used Date [...] Not on file Procedures * Due to [place] state law, this organization might not be [...] DIAGNOSTIC PROCE 05/18/2013 Results * Due to [place] state law, this organization might not be sharing negative HIV tests. * UNSPECIFIED MAJOR PROCEDURE (09/29/2019) Joshua Hendrix MD PROCEDURES Final Resul t * (ABNORMAL) CBC WITH 5 PART DIFF (02/19/2017 7:20 AM EDT) Only the most recent of3 resultswithin the time period is included. WHITE BLOOD COUNT 6.4 3.9 - 11.0 x1000/uL [facility] Comment: Smear review performed when a >50% change is noted in any parameter, or more than 72 hours has elapsed since the last CBC. RBC 3.47(L) 4.30 - 5.80 mil/ul [facility] Hemoglobin 10.8(L) 12.5 - 17.0 g/dL [facility] HCT (HEMATOCRIT) 33.4(L) 36.0 - 50.0 % [facility] MCV 96 80 - 100 fL [facility] MCH 31 27 - 33 pg [facility] MCHC 32 31 - 36 g/dL [facility] RDW 14.7(H) 11.4 - 14.4 % [facility] PLATELETS 337 150 - 450 x1000/uL [facility] MPV 9.6 7.0 - 11.0 fL [facility] NEUTROPHILS 69 % [facility] LYMPHOCYTE % 16 % [facility] MONOCYTE % 12 % [facility] EOSINOPHIL % 2 % [facility] BASOPHIL % 1 % [facility] NEUTROPHILS (#) 4.4 1.8 - 7.0 x1000/uL [facility] LYMPHOCYTES # 1.0 0.7 - 4.5 x1000/uL [facility] MONOCYTES # 0.8 0.1 - 0.8 x1000/uL [facility] EOSINOPHILS # 0.1 0.0 - 0.4 x1000/uL [facility] BASOPHILS # 0.1 0.0 - 0.2 x1000/uL [facility] 02/19/2017 7:20 AM EDT 02/19/2017 7:20 AM EDT us Tamika Lomax MD LABORATORY Final Res ult [facility] [address] [place] [address] * (ABNORMAL) PROTHROMBIN TIME (02/19/2017 7:20 AM EDT) Only the most recent of3 resultswithin the time period is included. PT (PROTHROMBIN TIME) 19.0(H) 9.1 - 12.0 sec [facility] INR 1.8(L) 2.0 - 3.5 [facility] Comment: INR reference interval applies to patients on anticoagulant therapy. ??Suggested INR therapeutic range for oral anticoagulant therapy:(Stabilized anticoagulated patients) ?Routine Therapy: ? 2.0-3.0 ?Recurrent Myocardial Infarction or ?Mechanical Prosthetic Valves: ?2.5-3.5 02/19/2017 7:20 AM EDT 02/19/2017 7:20 AM EDT us Tamika Lomax MD LABORATORY Final Res ult [facility] [address] [place] [address] * URINALYSIS,C&S IF INDICATED (02/18/2017 8:33 PM EDT) COLOR (URINE) YELLOW [facility] APPEARANCE (URINE) CLOUDY [facility] GLUCOSE (URINE) NEGATIVE Negative mg/dL [facility] BILIRUBIN (URINE) NEGATIVE Negative [facility] Ketones (Urine) NEGATIVE Negative mg/dL [facility] SPECIFIC GRAVITY 1.022 1.005 - 1.030 [facility] BLOOD (URINE) NEGATIVE Negative [facility] PH (URINE) 5.5 5.0 - 8.0 [facility] PROTEIN (URINE) NEGATIVE Neg-Trace mg/dL [facility] UROBILINOGEN 0.2 0.2 - 1.0 mg/dL [facility] NITRITE (URINE) NEGATIVE Negative [facility] WBC (URINE) NEGATIVE Negative [facility] Microscopic (Urine) [facility] Comment:Microscopic not leonor cated Culture Indication NO [facility] 02/18/2017 8:33 PM EDT 02/18/2017 8:33 PM EDT us Tamika Lomax MD LABORATORY Final Res ult Performing Organization Address City/[facility]/ZIP Co de Phone Number [facility] [address] [place] [address] * CULTURE, BLOOD #2 (02/17/2017 3:10 PM EDT) SOURCE: Venipuncture [facility] Result(s) No growth after 5 days incubation [facility] REPORT STATUS: Final [facility] 02/17/2017 3:10 PM EDT 02/17/2017 3:10 PM EDT us Tamika Lomax MD LABORATORY Final Res ult Performing Organization Address [facility]/ZIP Co de Phone Number [facility] [address] [place] [address] * CULTURE, BLOOD #1 (02/17/2017 3:05 PM EDT) SOURCE: Venipuncture [facility] Result(s) No growth after 5 days incubation [facility] REPORT STATUS: Final [facility] 02/17/2017 3:05 PM EDT 02/17/2017 3:05 PM EDT Tamika Lomax MD LABORATORY Final Res ult [facility] [address] [place] [address] * PHOSPHORUS (02/17/2017 3:05 PM EDT) PHOSPHATE 3.0 2.5 - 4.5 mg/dL [facility] 02/17/2017 3:05 PM EDT 02/17/2017 3:05 PM EDT Tamika Lomax MD LABORATORY Final Res ult Performing Organization Address City/[facility]/ZIP Co de Phone Number [facility] [address] [place] [address] * MAGNESIUM (02/17/2017 3:05 PM EDT) MAGNESIUM 1.8 1.6 - 2.6 mg/dL [facility] 02/17/2017 3:05 PM EDT 02/17/2017 3:05 PM EDT Tamika Lomax MD LABORATORY Final Res ult Performing Organization Address [facility] Co de Phone Number [facility] [address] [place] [phone] * (ABNORMAL) BASIC METABOLIC PANEL (02/17/2017 3:05 PM EDT) Glucose 128(H) 65 - 99 mg/dL [facility] BUN 11 5 - 26 mg/dL [facility] CREATININE 0.93 0.5 - 1.5 mg/dL [facility] BUN/Creatinine Ratio 12 8 - 27 [facility] GLOM FILT RATE, EST 94.1 >59 mL/min [facility] IF -KENNETH N 109.0 >59 mL/min [facility] SODIUM 139 134 - 144 mEq/L [facility] POTASSIUM 3.7 3.6 - 5.6 mEq/L [facility] CHLORIDE 104 96 - 109 mEq/L [facility] CARBON DIOXIDE 23 20 - 32 mEq/L [facility] ANION GAP 12.0 8 - 15 [facility] CALCIUM 8.5 8.3 - 10.0 mg/dL [facility] 02/17/2017 3:05 PM EDT 02/17/2017 3:05 PM EDT us Tamika Lomax MD LABORATORY Final Res ult Performing Organization Address City/[facility]/ZIP Co de Phone Number [facility] [address] [place] [address] * CXR 2 VIEW AP/PA AND LAT (02/17/2017 1:59 PM EDT) RADIOLOGY REPORT [facility] Department of Radiology [address] [place] [address], [address] Name: RICARDO REECE : 63 Date of Service: 02/17/17 1455 Acct Number: [id number] Order Number: ??[id number] ?Location: [facility] Report Number: [id number] ?Service: ADM IN/HENRRY Requesting Physician: Larry Burgos Category: RADIOLOGY ??[facility] Exam: CHEST 2 VIEW (DEPARTMENT) ?? Signs/Symptoms: [...] is seen. Date/Time of Dictation: 02/17/17 1503 Wine Steward (if applicable): Approved By Attending Radiologist: Dylon Garcia 02/17/17 1503 [facility] Department of Radiology [address] [place] [address], [address] ? [phone] ? [facility] Anatomical Region Laterality Modality Other 02/17/2017 1:59 PM EDT Narrative 02/17/2017 3:04 PM EDT Reason for Study/History: Department of Radiology TEST(S) PROCESSED BY [facility] XRAY us Unknown Provider [facility] Final Resul t * CULTURE,ANAEROBIC (06/14/2013 10:50 AM EDT) SOURCE: Tissue wound rt leg [facility] GRAM STAIN Many (>25/lpf) WBC No bacteria seen [facility] Result(s) No anaerobes isolated Aerobic Gram Positive Cocci [facility] REPORT STATUS: Final [facility] 06/14/2013 10:5 0 AM EDT 06/14/2013 10:50 AM EDT Tamika Lomax MD LABORATORY Final Res ult Performing Organization Address [facility] Co de Phone Number [facility] [address] [place] [address] * CULTURE,ANY SOURCE (06/14/2013 10:48 AM EDT) SOURCE: Tissue wound rt leg [facility] GRAM STAIN Many (>25/lpf) WBC No bacteria seen [facility] Result(s) Streptococcus species Group G - Light growth (1-2+) Mixed gram positive organisms - Rare growth [facility] REPORT STATUS: Final [facility] 06/14/2013 10:4 8 AM EDT 06/14/2013 10:48 AM EDT Tamika Lomax MD LABORATORY Final Res ult Performing Organization Address City/[facility]/ZIP Co de Phone Number [facility] [address] [place] [address] * UNSPECIFIED MAJOR PROCEDURE (06/14/2013) Narrative Transcriptions [...] was 16 cm2. SURGEON: Dr. Tamika Lomax. MANAGER CLUB: Dr. Bradley. ANESTHESIA: General. ESTIMATED BLOOD LOSS: [...] underneath. Once this was accomplished, the [employer] radio antenna installer was brought into the field and the [...] 11:51 A TT: 12:06 P Doc #: [id number] cc: MD Malik Washburn MD Tamika Lomax [...] SYSTEM 06/09/2013 7:25 AM EDT Yolande Garcia 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 CARDIOVASCULAR-WITH INBSKT R TG Final Result MUSE [...] Unspecified venous (peripheral) insufficiency 07/26/2014 Morbid obesity ([facility]) Morbid obesity 07/26/2014 Venous stasis of lower [...] Onychomycosis Dermatophytosis of nail 10/31/2015 Atherosclerosis of [place] artery of both lower extremities, with unspecified [...] lower legs, limited to breakdown of skin ([facility]) 12/08/2017 Lymphedema Other lymphedema 12/08/2017 Ulcers of both lower legs, limited to breakdown of skin ([facility]) 2017 Lymphedema Other lymphedema 2017 Ulcers of both lower legs, limited to breakdown of skin ([facility]) 12/22/2017 Lymphedema Other lymphedema 12/22/2017 Edema, unspecified type 12/31/2017 Encounter for change or removal of nonsurgical wound dressing 12/31/2017 Ulcers of both lower legs, limited to breakdown of skin ([facility]) 01/05/2018 Lymphedema Other lymphedema 01/05/2018 Ulcers of [...] Onychomycosis Dermatophytosis of nail 04/13/2018 Atherosclerosis of [place] artery of both lower extremities, with unspecified [...] right leg, limited to breakdown of skin ([facility]) 03/05/2021 Care Teams Multimedia Services Manager Relationship Specialty Start Date End Date Destiny Trinidad MD [facility] [address] [place] [address] PCP - General Family Medicine 12/22/17
--- OUTSIDE RECORDS SUMMARY | 2024-11-17 12:26 | XMS_ITS | Encounter Summary ---
Author Organization [facility] Address [address] [place] [address] Care Team Providers Care Advertising Sales Agent Name Role Phone Damion Maynard MD Primary Care Provider U Destiny Dewey MD Primary Care Provider [phone] Encounter Details Date Type Department Care Team (Late st Contact Info) Description 08/19/2016 Telephone [facility] General Vascular Surgery [address] [facility] [address] [place] [phone] Shira Meyers NP Social History Tobacco Use [...] on filedocumented in this encounter Care Teams Advertising Sales Agent Relationship Specialty Start Date End Date Damion Maynard MD PCP - General Family Medicine 05/20/16 12/21/17 Destiny Trinidad MD [facility] [address] [place] [address] PCP - General Family Medicine 12/22/17 documented as of this encounter
--- OUTSIDE RECORDS SUMMARY | 2024-11-17 12:26 | XMS_ITS | Encounter Summary ---
Author Organization [facility] Address [address] [place] [address] Care Team Providers Care Orthodontic Assistant Name Role Phone Destiny Trinidad MD Primary Care Provider Steven Ch MD Unavailable [phone] Encounter Details Date Type Department Care Team (Late st Contact Info) Description 09/24/2021 Prep for Surgery [facility] [address] [place] [phone] Nav Simmons PA-C [address] [place] [phone] Preop examination (Primary Dx) Social History Tobacco [...] examination documented in this encounter Care Teams Orthodontic Assistant Relationship Specialty Start Date End Date Destiny Trinidad MD [address] [address] PCP - General 09/25/21 Steven Ch MD [address] [place] [address] Drive [address] [place] [address] [employer] Cardiovascular Disease 09/25/21 documented as of this encounter
--- OUTSIDE RECORDS SUMMARY | 2024-11-17 12:26 | XMS_ITS | Encounter Summary ---
Author Organization [facility] Address [address] [place] [address] Care Team Providers Care Rn Unit Manager Name Role Phone Damion Maynard MD Primary Care Provider U Destiny Dewey MD Primary Care Provider [phone] Reason for Visit * Reason Comments Unna Boot Application Encounter Details Date Type Department Care Team (Late st Contact Info) Description 03/30/2017 Telephone [facility] General Surgery [address] [facility] [address] [place] [phone] Shira Meyers NP Unna Boot Application Social [...] Miscellaneous Notes * Telephone Encounter - Miranda Barnhart - 03/30/2017 1:25 PM EDT Scheduled tomorrow [...] week on schedule0 Please call to advise [phone] documented in this encounter Plan of Treatment Not on file documented as of this encounter Visit Diagnoses Not on filedocumented in this encounter Care Teams Rn Unit Manager Relationship Specialty Start Date End Date Damion Maynard MD PCP - General Family Medicine 05/20/16 12/21/[address] [facility] [address] [place] [id number] PCP - General Family Medicine 12/22/17 documented as of this encounter
--- OUTSIDE RECORDS SUMMARY | 2024-11-17 12:26 | XMS_ITS | Encounter Summary ---
Author Organization [facility] Address [address] [place] [address] Care Team Providers Care Converting Technician Name Role Phone Damion Maynard MD Primary Care Provider U Destiny Dewey MD Primary Care Provider [phone] Reason for Visit * Reason Comments Appointment tomorrow Unna Boot Application Encounter Details Date Type Department Care Team (Late st Contact Info) Description 02/16/2017 Telephone [facility] General Vascular Surgery [address] [facility] [address] [place] [address] Shira Meyers NP Appointment (tomorrow); Unna Boot [...] he is seeing a doctor at the [facility] in [place] at 10:30 - a Dr. Zelaya-who is going to want to talk to Shira Meyers about his situation. So patient is asking to be seen in time tomorrow to get to his 10 30 appointment in [place] He will be cancelling his other [place] appointment with Podiatry at 8:30. Please advise [phone] documented in this encounter Plan of Treatment Not on file documented as of this encounter Visit Diagnoses Not on filedocumented in this encounter Care Teams Converting Technician Relationship Specialty Start Date End Date Damion Maynard MD PCP - General Family Medicine 05/20/16 12/21/17 Destiny Trinidad MD [facility] [address] [place] [address] PCP - General Family Medicine 12/22/17 documented as of this encounter
== END 2024-11-17 12:30 | disposition home or self-care (01) ==
PROVIDERS: PCP Family Medicine; Visit Provider Internal Medicine Gastroenterology
DX: K86.89 Other specified diseases of pancreas (principal)
CPT/HCPCS: 99213

== ENCOUNTER → 2024-11-17 11:46 | Outpatient (BNVA) | payer MEDICARE, SELFPAY | PROVIDERS: PCP Family Medicine; Visit Provider Internal Medicine Gastroenterology | DX: K86.89 Other specified diseases of pancreas (principal) | CPT/HCPCS: 99212 ==

== ENCOUNTER 2024-12-20 14:03 | Outpatient (AMB) | payer MEDICARE, MEDICAID, SELFPAY ==
--- NOTE | 2024-12-20 12:54 | MHC.OFFVIS ---
Intake Visit Reasons: Urge Incont f/u Intake Note: Patient is present for urge incont f/u Urology Medication:TAMSULOSIN, GEMTESA, OXYBUTYNIN Antibiotic Allergy:PENICILLIN,SULFA,AMOXICILLIN,VANCOMYCIN,CLINDAMYCIN Blood Thinner:ELIQUIS PVR:24ml [employer] Processor Required: No Allergies cefaclor [From Ceclor] Allergy (Severe, Verified 12/20/24 14:07) hives epanolol Allergy (Severe, Verified 12/20/24 14:07) hives misoprostol Allergy (Severe, Verified 12/20/24 14:07) rash NSAIDS (Non-Steroidal Anti-Inflamma Allergy (Severe, Verified 12/20/24 14:07) GI upset Penicillins Allergy (Severe, Verified 12/20/24 14:07) hives, rash, itching Sulfa (Sulfonamide Antibiotics) Allergy (Severe, Verified 12/20/24 14:07) Hives Cephalosporins Allergy (Intermediate, Verified 12/20/24 14:07) hives amoxicillin Allergy (Mild, Verified 12/20/24 14:07) rash vancomycin Allergy (Mild, Verified 12/20/24 14:07) itching clindamycin Adverse Reaction (Intermediate, Verified 12/20/24 14:07) Rash Medication List - Last Reconciled 12/20/24 by Therese Soto MD apixaban 5 mg PO BID Bifidobacterium infantis (Align (B.infantis)) 4 mg PO DAILY budesonide DR-ER 9 mg (3 x 3 mg) PO DAILY calcium carbonate-vitamin D3 600 mg-10 mcg (400 unit) 1 tab PO DAILY colesevelam 1,250 mg (2 x 625 mg) PO BID dapagliflozin propanediol (Farxiga) 5 mg PO DAILY diphenoxylate-atropine 2.5-0.025 mg/5 mL 5 mL PO QID PRN duloxetine 20 mg PO DAILY esomeprazole magnesium 40 mg PO DAILY ferrous sulfate 1 tab PO DAILY gabapentin 300 mg PO TID sdhjga-hsochluc-rcgxsgc 24,000-76,000 -120,000 unit (Creon) 2 caps PO BID lorazepam 1 mg PO BEDTIME PRN montelukast 10 mg PO BEDTIME multivitamin with folic acid 400 mcg (Daily-Brent (with folic acid)) 1 tab PO DAILY nitrofurantoin monohyd/m-cryst 100 mg (Macrobid) 100 mg PO BID 10 days nitrofurantoin monohyd/m-cryst 100 mg (Macrobid) 100 mg PO BID 7 days nystatin topical BID oxybutynin chloride ER 15 mg PO DAILY oxycodone 5 mg PO Q6H PRN prednisolone acetate 1% drps ophthalmic (eye) rifaximin 550 mg PO TID 2 weeks sertraline 100 mg PO DAILY simethicone (Gas Relief (simethicone)) 125 mg PO BID-QID PRN sotalol 120 mg PO BID sucralfate 10 mL PO BID PRN tamsulosin 0.4 mg PO DAILY vibegron (Gemtesa) 75 mg PO DAILY zolpidem 10 mg PO BEDTIME HPI Comments Details: 12/20/24-- Ryananis a 59-year-old male presenting with lower urinary tract symptoms. His urinary symptoms, including frequency and incontinence, have been managed with Gemtesa and oxybutynin, which he reports as effective. A previous CT scan-06/2024 incidentally revealed a right kidney stone, yet he remains asymptomatic. He is unable to provide Urine specimen today. Bladder scan PVR - minimal. CoMorbidity-Morbid Obesity. The patient states his PCP has recently started Wegovy, he has received samples awaiting insurance approval. Urinary Symptoms Review - Increased urinary frequency - Urinary incontinence managed with Gymtesa and oxybutynin - Asymptomatic right kidney stone identified previously - Bladder scan post-void residual of 24 mL - No renocolic or flank pain reported Results - CT scan (07/10/2024): Incidental finding of a 5 mm stone in the right kidney lower pole. 08/09/24--Jan states the addition of the gemtesa to the oxybutynin has helped his bladder symptoms. I have discussed CTAP results--right kidney stone. Patient denies renal colic symptoms. 04/28/24--Seen in the past for urinary incontinence. The patient states he is on oxybutynin 20 mg in the morning (15 mg and 5 mg tablets). He states that he is still leaking and has the urge to go to the bathroom frequently. He is prescribed tamsulosin 0.4 mg daily. The patient states that he was hospitalized at [facility] for CHF, he was told that there was kidney function issues. He had follow-up labs with his primary which noted improvement in the kidney function. He is brought labs into the office. He is unable to give a urine sample today. Bladder scan PVR 21 mL. Will order imaging to check urinary tract. Discussed combination therapy for voiding dysfunction. Will add Gemtesa 75 mg to take in the afternoon continue oxybutynin 15 mg in the morning. [facility] Medical History Nocturnal hypoxemia Somnolence, daytime Loud snoring SHAYLA (obstructive sleep apnea) Paroxysmal A-fib Atrial flutter PAF (paroxysmal atrial fibrillation) On beta paty at home On anticoagulant therapy SHAYLA on CPAP Bronchial asthma Restrictive lung disease Migration of vascular stent Pulmonary embolus Family history of stent Uncomplicated opioid dependence Lymphedema Lumbar disc disease Venous stasis Hyperlipidemia Neurogenic bladder Dyspnea Lumbar disc prolapse with root compression History of kidney stones GERD (gastroesophageal reflux disease) OA (osteoarthritis) Morbid obesity Asthma Depression Essential hypertension Surgical History Hx of cervical spine surgery S/P IVC filter S/P appendectomy Hx of colonoscopy History of esophagogastroduodenoscopy (EGD) Hx of eye surgery Hx of gastric bypass Family History Mother Diabetes Father Brain cancer Sister Diabetes Sister Diabetes Sister Diabetes Brother Blind Brother No problems noted. Brother No problems noted. Brother No problems noted. Brother No problems noted. Daughter No problems noted. Daughter Mental health disorder Son Mental health disorder Son No problems noted. Son No problems noted. Social History Household Members: Children Household Members Other:: - 5 kids Housing: House Are you a primary child care centre manager to a significant other at home: No Do you presently have visiting nurse or other home services: Yes ([employer] that visits every 3 months) Alcohol intake: former Year quit: 1979 Comment: uses cane at times- knee gives out Patient Tobacco Use Status: Never used Tobacco Second Hand Smoke Exposure: No Advance Directives Date on File: 08/14/21 service: No Current occupational status: disabled Current occupation: rt handed Review of Systems Const All systems reviewed & are unremarkable except as noted in HPI and below Reports no additional complaints Eyes Reports no additional complaints ENT Reports no additional complaints Card Reports no additional complaints Resp Reports no additional complaints GI Reports no additional complaints Reports as per HPI Musc Reports no additional complaints Skin/Breast Reports system reviewed and no additional complaints, except as documented Neuro Reports no additional complaints Psych Reports no additional complaints Endo Reports no additional complaints Pierre/Lymph Reports no additional complaints Aller/Immun Reports no additional complaints Office Procedures Post Void Residual Post Residual Void Post Void Residual (PVR): 34640-Rysj Void Residual by ultrasound Results Reviewed Results Reviewed: Date of Service: 07/10/24 CT ABDOMEN AND PELVIS WITHOUT CONTRAST CLINICAL INFORMATION: Unspecified symptoms and signs involving the genitourinary system. COMPARISON: CT enterography 11/17/2022. TECHNIQUE: Multidetector volumetric imaging was performed from the superior aspect of the liver through the pubic symphysis. Sagittal and coronal reformatted images were obtained on the technologist's workstation. This CT examination was performed using dose optimization techniques as appropriate, variously including the following: *Automated exposure control *Adjustment of mA and/or kV according to patient size (this includes techniques or standardized protocols for targeted exams where dose is matched to indication/reason for exam; i.e. extremities or head) *Use of iterative reconstruction technique DLP: 1079 mGy-cm Examination submitted for interpretation 09/15/2024. FINDINGS: Study somewhat limited by patient habitus. This results in beam starvation artifact, mildly limiting detection of subtle findings. LUNG BASES: -There are patchy round glass type opacities within the lingula, right middle lobe, and right lower lobe, which have an inflammatory or infectious type appearance. These appear more numerous than on the previous exam although were present in the left lower lobe on the prior. Process appears to be ongoing. -There are no effusions. -There is bronchiectasis in both lower lobes without bronchial wall thickening. -There is mild/moderate cardiomegaly. There are mild coronary calcifications. There is no pericardial effusion. -Patulous appearing distal esophagus leads into a hiatus hernia and gastric bypass procedure. LIVER, GALLBLADDER, AND BILIARY TREE: -Unenhanced liver demonstrates no discrete abnormality. Normal in attenuation. Increased size, with craniocaudal length of 24 cm. - The gallbladder demonstrates no evidence of gallbladder wall thickening, or obvious pericholecystic inflammatory changes. - Suspect gallstones present (series 3, image 33). No biliary dilatation. PANCREAS: Unremarkable. SPLEEN: Unremarkable. ADRENAL GLANDS: Unremarkable. KIDNEYS AND URETERS: -Left kidney normal . -Right kidney demonstrates a 5 mm calculus in the lower pole, nonobstructing. Right kidney is otherwise normal. -There is mild nonspecific perirenal stranding bilaterally. -Ureters are nondilated. BLADDER: The urinary bladder is completely decompressed and contains intraluminal gas. No significant wall thickening noted or inflammatory change. Gas is likely present from iatrogenic cause. GASTROINTESTINAL TRACT: -Post gastric bypass. Hiatus hernia. Patulous appearing distal esophagus. -Excluded stomach, duodenum, and small bowel appear normal. -The colon appears normal. No rectal abnormality. -No acute findings in the GI system. ABDOMINAL WALL: -Morbid obesity. -Prominent inguinal lymph nodes are present, stable from prior exam, presumably reactive in nature. There is a small fat-containing periumbilical hernia. -Grossly no masses or fluid collections present. -Generalized atrophy of the pelvic girdle musculature, presumably from sedentary state. LYMPH NODES: -Prominent inguinal lymph nodes as above, unchanged. -Mildly enlarged external iliac lymph nodes right greater than left, with left measuring up to 1.5 x 2.7 cm (series 3, image 88), unchanged suggesting benignity and reactive etiology. -No additional lymphadenopathy present. VASCULAR: -There is a stent within the IVC. -There is no aneurysm or significant atheromatous changes. PELVIC VISCERA: -The prostate is small and difficult to visualize. -Otherwise normal. OSSEOUS STRUCTURES: -There is generalized osteopenia. This appears most notable in the lower lumbar spine. -There are moderate degenerative changes throughout the spine, as well as the left greater than right hip joints. -Is no acute or suspicious bony abnormality. IMPRESSION: 1. No hydronephrosis or hydroureter. There is a 5 mm nonobstructing calculus in the right kidney lower pole. 2. Decompressed urinary bladder with intraluminal gas, presumably from either self catheterization or iatrogenic. 3. Additional ancillary findings as discussed in the body of the report. Assessment & Plan Assessment & Plan (1) Morbid obesity: Code(s): E66.01 - Morbid (severe) obesity due to excess calories Category: Medical (2) Urinary frequency: Code(s): R35.0 - Frequency of micturition Category: Medical (3) Urge incontinence of urine: Code(s): N39.41 - Urge incontinence Category: Medical (4) Kidney stone: Code(s): N20.0 - Calculus of kidney Category: Medical (5) Right renal stone: Code(s): N20.0 - Calculus of kidney Category: Medical Plan Discussion Notes During the visit, I explained to the patient about his urinary symptoms and management. We discussed the incidental kidney stone, the need for a renal ultrasound, and dietary modifications to reduce further stone risk. Refill of Gymtesa for 190 days was agreed upon. Discussions also covered following up in four months post-ultrasound to evaluate the renal condition further. Plan The current management of the patient's lower urinary tract symptoms with Gemtesa and oxybutynin has been effective, and we shall continue with these medications. A renal ultrasound is scheduled to monitor the incidental kidney stone with dietary recommendations provided to prevent stone formation. A follow-up appointment is set four months from now to review these management strategies and any ultrasound findings. Medication prescriptions will be adjusted to ensure continuity. Orders: Orders AMB Urinalysis Automated Today N39.41 - Urge incontinence AMB Post Void Residual by ultrasound Today N39.41 - Urge incontinence US renal BI 3 Months N20.0 - Calculus of kidney Medications: Refilled vibegron (Gemtesa) take in the afternoon at 3 pm 75 mg PO DAILY 90 tabs 3RF Patient Instructions: Patient Instructions - Continue medications as prescribed: Gymtesa and oxybutynin. - Maintain a low-sodium diet and limit animal protein intake. - Schedule a renal ultrasound as instructed. - Follow up in four months or if symptoms worsen. The patient had an opportunity to ask questions regarding treatment plan. The patient expressed understanding and agreement with the above treatment plan. The patient is aware they should contact our office by phone for worsening of their current condition or the appearance of new symptoms. Compliance is encouraged with any medications and followup testing that is ordered. It is a privilege to be allowed the opportunity to participate in the urologic care of your patient. If you have any questions or concerns regarding treatment for the above conditions please do not hesitate to contact me. The office telephone contact is [phone]. This note is constructed in part using voice recognition software. While every effort has been made to ensure accuracy digital account manager errors may have been included. Yours sincerely, Therese Soto MD Scribe Plan - Not visible on output: Patient was informed and verbally consented to the use of an ambient scribe for clinic note documentation during this visit. Coding Level of Care Code Est Pt Level 4 (52144) Diagnoses Morbid obesity E66.01 Urinary frequency R35.0 Urge incontinence of urine N39.41 Kidney stone N20.0 Right renal stone N20.0 CPT Codes Post Residual Void - PVR CPT Code: 77393-Nslr Void Residual by ultrasound ([id number])
--- OUTSIDE RECORDS SUMMARY | 2024-12-20 16:55 | XMS_ITS | Encounter Summary ---
Author Organization [facility] Address [address] [place] [address] Care Team Providers Care Piston Maker Name Role Phone Damion Maynard MD Primary Care Provider U Destiny Dewey MD Primary Care Provider [phone] Encounter Details Date Type Department Care Team (Late st Contact Info) Description 08/19/2016 Telephone [facility] General Vascular Surgery [address] [facility] [address] [place] [id number] Shira Meyers NP Social History Tobacco Use [...] on filedocumented in this encounter Care Teams Piston Maker Relationship Specialty Start Date End Date Damion Maynard MD PCP - General Family Medicine 05/20/16 12/21/17 Destiny Trinidad MD [facility] [address] [place] [address] PCP - General Family Medicine 12/22/17 documented as of this encounter
--- OUTSIDE RECORDS SUMMARY | 2024-12-20 16:55 | XMS_ITS | Clinical Summary ---
Author Organization [facility] Address [address] [place] [address] Care Team Providers Care General Manager Name Role Phone Destiny Trinidad MD Primary Care Provider [phone] Steven Ch MD Unavailable [phone] Allergies Active Allergy Reactions Criticality Noted [...] (three) times a day. Active nystatin (MYCOSTATIN) 523772 UNIT/GM cream Apply topically 2 (two) times [...] Dates Next Due Covid-19 MRNA Vaccine - Regen 12+ (Purple Cap) 10/13/2021 Family History Medical [...] 1977 DTaP/Tdap/Td Vaccines (1 - Tdap) 12/18/1983 Colonoscopy 2009 Pneumococcal Vaccines 50+ (1 of 1 - PCV) 2014 Zoster (Shingles) Vaccine (1 of 2) 2014 Influenza Vaccine 05/18/2024 06/17/2021, 08/07/2014, 06/24/2012 COVID-19 Vaccine ( - 2023-2 5 season) 2024 10/13/2021, 01/08/2021, 12/18/2020 RSV Vaccine 60 years and older and Patients (1 - 1-dose 75+ series) 12/18/2039 Hepatitis B Vaccines Aged Out No long er eligible based on patient's age to complete this topic Care Teams General Manager Relationship Specialty Start Date End Date Destiny Trinidad MD [address] [address] PCP - General 09/25/21 Steven Ch MD [address] [place] [address] Drive [address] [place] [address] Iron Pellet Tester Cardiovascular Disease 09/25/21
--- OUTSIDE RECORDS SUMMARY | 2024-12-20 16:55 | XMS_ITS | Continuity of Care Document ---
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 Assistant Name Role Phone Destiny Trinidad MD Primary Care Provider [phone] Encounters Date Type Department Care Team Description 03/05/2021 Travel 03/05/2021 11:15 AM EDT Office Visit [facility] [address] [place] [phone] Stacey Barber NP Chronic ulcer of right leg, limited to breakdown of skin (HCC) (Primary Dx) 02/25/2021 Travel 02/25/2021 11:20 AM EDT Office Visit [facility] [address] [place] [phone] Stacey Barber NP Chronic ulcer of right leg, limited to breakdown of skin (HCC) (Primary Dx) 02/17/2021 Travel 02/17/2021 11:45 AM EDT Office Visit [facility] [address] [place] [phone] Stacey Barber NP Chronic ulcer of right leg, limited to breakdown of skin (HCC) (Primary Dx) 02/11/2021 Travel 02/11/2021 12:30 PM EDT Office Visit [facility] [address] [place] [phone] Stacey Barber NP Chronic ulcer of right leg, limited to breakdown of skin (HCC) (Primary Dx) 02/04/2021 Travel 02/04/2021 10:45 AM EDT Office Visit [facility] [address] [facility] [address] [place] [address] Stacey Barber NP Chronic ulcer of right leg, limited to breakdown of skin (HCC) (Primary Dx) 01/29/2021 Travel 01/29/2021 9:00 AM EDT Office Visit [facility] [address] [facility] [address] [place] [address] Stacey Barber NP Chronic ulcer of right leg, limited to breakdown of skin (HCC) (Primary Dx) 01/21/2021 Travel 01/21/2021 1:00 PM EDT Office Visit [facility] [address] [place] [address] [address] [place] [address] Stacey Barber NP Chronic ulcer of right leg, limited to breakdown of skin (HCC) (Primary Dx) 01/14/2021 Travel 01/14/2021 1:00 PM EDT Office Visit [facility] [address] [facility] [address] [place] [address] Stacey Barber NP Chronic ulcer of right leg, limited to breakdown of skin (HCC) (Primary Dx) 01/08/2021 11:15 AM EDT Office Visit [facility] [address] [facility] [address] [place] [address] Stacey Barber NP Chronic ulcer of left leg, limited to breakdown of skin (HCC) (Primary Dx) 01/03/2021 Travel 01/03/2021 11:00 AM EDT Office Visit [facility] [address] [place] [address] [address] [place] [address] Shira Meyers NP Ulcer of right lower extremity, unspecified ulcer stage (HCC) (Primary Dx); Lymphedema; Encounter for change or removal of nonsurgical wound dressing 12/24/2020 Travel 12/24/2020 1:00 PM EST Office Visit [facility] [address] [facility] [address] [place] [address] Stacey Barber NP Chronic ulcer of lower extremity, right, with unspecified severity (HCC) (Primary Dx) 12/10/2020 Travel 12/10/2020 1:15 PM EST Office Visit [facility] [address] [facility] [address] [place] [address] Stacey Barber NP Ulcer of right lower extremity, unspecified ulcer stage (HCC) (Primary Dx) 12/05/2020 Travel 12/05/2020 1:00 PM EST Office Visit [facility] [address] [address] Joshua Hendrix MD Chronic ulcer of lower extremity, right, with unspecified severity (HCC) (Primary Dx) 11/21/2020 Travel 11/21/2020 1:00 PM EST Office Visit [facility] [address] [address] Stacey Barber NP Chronic ulcer of lower extremity, right, with unspecified severity (HCC) (Primary Dx); Venous stasis of lower extremity 11/12/2020 Travel 11/12/2020 1:00 PM EST Office Visit [facility] [address] [address] Stacey Barber NP Ulcer of right lower extremity, unspecified ulcer stage (HCC) (Primary Dx) 10/29/2020 Travel 10/29/2020 2:40 PM EST Office Visit [facility] [address] [facility] [address] [place] [address] Shira Meyers NP Ulcer of right lower extremity, unspecified ulcer stage (HCC) (Primary Dx); Lymphedema 03/04/2020 Telephone [facility] [address] [facility] [address] [place] [address] St Shira Snow NP No Show 03/04/2020 Telephone [facility] [address] [facility] [address] [place] [address] St Shira Snow, GREEN MARK[employer]ER Equipment/supplies 01/05/2020 9:20 AM EDT Office Visit [facility] [address] [facility] [address] [place] [address] [address] OnShira meyer, GREEN MARKETER Ulcer of right lower extremity, unspecified ulcer stage (HCC) (Primary Dx); Lymphedema 12/29/2019 Travel 12/29/2019 9:40 AM EDT Office Visit [facility] [address] [place] [phone] St Shira Snow, GREEN MARKETER Ulcer of right lower extremity, unspecified ulcer stage (HCC) (Primary Dx); Ulcer of left lower extremity, unspecified ulcer stage 12/22/2019 9:20 AM EST Nurse Visit [facility] [address] [address] Shashank Shetty LPN Edema, unspecified type (Primary Dx); Encounter for change or removal of nonsurgical wound dressing 12/15/2019 8:40 AM EST Office Visit [facility] [address] [address] [address] OnShira meyer, GREEN MARKETER Ulcer of right lower extremity, unspecified ulcer stage (HCC) (Primary Dx); Ulcer of left lower extremity, unspecified ulcer stage; Lymphedema of both lower extremities 12/06/2019 9:00 AM EST Office Visit [facility] [address] [address] St OnShira meyer, GREEN MARKETER Ulcer of right lower extremity, unspecified ulcer stage (HCC) (Primary Dx); Ulcer of left lower extremity, unspecified ulcer stage; Lymphedema of both lower extremities 11/29/2019 8:40 AM EST Office Visit [facility] [address] [facility] [address] [place] [address] [address] Onge, Shira, GREEN MARKETER Ulcer of right lower extremity, unspecified ulcer stage (HCC) (Primary Dx); Ulcer of left lower extremity, unspecified ulcer stage; Lymphedema of both lower extremities 11/22/2019 8:40 AM EST Office Visit [facility] [address] [facility] [address] [place] [address] [address] Onge, Shira, GREEN MARKETER Ulcer of right lower extremity, unspecified ulcer stage (HCC) (Primary Dx); Ulcer of left lower extremity, unspecified ulcer stage; Lymphedema of both lower extremities 11/15/2019 8:40 AM EST Office Visit [facility] [address] [facility] [address] [place] [address] [address] Onge, Shira, GREEN MARKETER Ulcer of right lower extremity, unspecified ulcer stage (HCC) (Primary Dx); Ulcer of left lower extremity, unspecified ulcer stage; Lymphedema of both lower extremities 11/08/2019 8:40 AM EST Office Visit [facility] [address] [facility] [address] [place] [address] [address] Onge, Shira, GREEN MARKETER Ulcer of right lower extremity, unspecified ulcer stage (HCC) (Primary Dx); Ulcer of left lower extremity, unspecified ulcer stage 11/01/2019 8:00 AM EST Office Visit [facility] [address] [facility] [address] [place] [address] [address] Onge, Shira, GREEN MARKETER Ulcer of right lower extremity, unspecified ulcer stage (HCC) (Primary Dx) 10/27/2019 8:40 AM EST Office Visit [facility] [address] [facility] [address] [place] [address] [address] Onge, Shira, GREEN MARKETER Ulcer of right lower extremity, unspecified ulcer stage (HCC) (Primary Dx); Lymphedema of both lower extremities 10/20/2019 2:00 PM EST Nurse Visit [facility] [address] [facility] [address] [place] [address] Orville Gandhi LPN Edema, unspecified type (Primary Dx); Encounter for change or removal of nonsurgical wound dressing 10/12/2019 10:00 AM EST Office Visit [facility] [address] [facility] [address] [place] [address] Joshua Hendrix MD Venous stasis of lower extremity (Primary Dx) 10/06/2019 11:00 AM EST Office Visit [facility] [address] [facility] [address] [place] [address] St OnShira meyer, GREEN MARKETER Ulcer of right lower extremity, unspecified ulcer stage (HCC) (Primary Dx) 10/04/2019 Telephone [facility] [address] [facility] [address] [place] [address] Joshua Hendrix MD Post Op (wound care) 09/29/2019 Surgery/Major Procedure [facility] [address] [facility] [address] [place] [address] Joshua Hendrix MD 09/19/2019 2:20 PM EST Office Visit [facility] [address] [facility] [address] [place] [address] [address] OnShira meyer, GREEN MARKETER Ulcer of right lower extremity, unspecified ulcer stage (HCC) (Primary Dx); Lymphedema of both lower extremities 09/07/2019 Pre-Op FAM PRAC UNSPECIFIED Provider, Unknown 09/05/2019 10:00 AM EST Consult (Initial) [facility] [address] [facility] [address] [place] [address] Joshua Hendrix MD Venous stasis of lower extremity (Primary Dx) 08/30/2019 9:20 AM EST Office Visit [facility] [address] [facility] [address] [place] [address] [address] Onge Shira, GREEN MARKETER Ulcer of right lower extremity, unspecified ulcer stage (HCC) (Primary Dx); Lymphedema of both lower extremities 08/23/2019 9:20 AM EST Office Visit [facility] [address] [facility] [address] [place] [address] [address] Onge, Shira, GREEN MARKETER Ulcer of right lower extremity, unspecified ulcer stage (HCC) (Primary Dx); Lymphedema of both lower extremities 08/16/2019 9:20 AM EDT Office Visit [facility] [address] [place] [address] [address] [place] [address] [address] Onge, Shira, GREEN MARKETER Ulcer of right lower extremity, unspecified ulcer stage (HCC) (Primary Dx); Lymphedema of both lower extremities 08/09/2019 8:40 AM EDT Office Visit [facility] [address] [place] [address] [address] [place] [address] [address] Onge, Shira, GREEN MARKETER Ulcer of right lower extremity, unspecified ulcer stage (HCC) (Primary Dx); Lymphedema of both lower extremities 08/02/2019 9:20 AM EDT Office Visit [facility] [address] [place] [phone] St Onge, Shiar, GREEN MARKETER Ulcer of right lower extremity, unspecified ulcer stage (HCC) (Primary Dx); Lymphedema of both lower extremities 07/25/2019 9:00 AM EDT Office Visit [facility] [address] [place] [address] Nav Staples MD Varicose veins of left lower extremity with pain (Primary Dx); Venous stasis ulcer of calf with bone involvement without evidence of necrosis with varicose veins, unspecified laterality (HCC); Varicose veins of right lower extremity with ulcer of calf with fat layer exposed (HCC) 07/20/2019 9:00 AM EDT Nurse Visit [facility] [address] [place] [address] Orville Gandhi LPN Edema, unspecified type (Primary Dx); Encounter for change or removal of nonsurgical wound dressing 07/14/2019 9:20 AM EDT Nurse Visit [facility] [address] [facility] [address] [place] [address] Shashank Shetty, PIANO BUILDER Edema, unspecified type (Primary Dx); Encounter for change or removal of nonsurgical wound dressing 07/07/2019 9:40 AM EDT Office Visit [facility] [address] [facility] [address] [place] [address] hSira Meyers NP Ulcer of right lower extremity, unspecified ulcer stage (HCC) (Primary Dx); Lymphedema of both lower extremities 07/04/2019 9:00 AM EDT Office Visit [facility] [address] [facility] [address] [place] [address] Shira Meyers NP Ulcer of right lower extremity, unspecified ulcer stage (HCC) (Primary Dx); Lymphedema of both lower extremities 06/27/2019 Telephone [facility] [address] [facility] [address] [place] [address] Shira Meyers NP Discussion With Provider; Wound Care 04/17/2019 9:20 AM EDT Nurse Visit [facility] [address] [facility] [address] [place] [address] Lymphedema (Primary Dx) 04/10/2019 9:20 AM EDT Office Visit [facility] [address] [facility] [address] [place] [address] Nolvia Elkins NP Lymphedema of both lower extremities (Primary Dx); Ulcer of right lower extremity, unspecified ulcer stage (HCC) 04/05/2019 8:30 AM EDT Office Visit [facility] [address] [facility] [address] [place] [address] Theo Martinez MD Lymphedema of both lower extremities (Primary Dx); Venous ulcer (HCC) 03/29/2019 9:15 AM EDT Office Visit [facility] [address] [facility] [address] [place] [address] Nav Amato MD Trigger finger, right ring finger (Primary Dx) 03/21/2019 10:45 AM EDT Office Visit [facility] [address] [place] [phone] Renae Turner PA S/P trigger finger release (Primary Dx); Tenosynovitis of finger 11/18/2018 8:00 AM EST Office Visit [facility] [address] [place] [phone] Jeffery Manuel NP Trigger ring finger of left hand (Primary Dx) 11/08/2018 8:00 AM EST Minor Procedure/Test [facility] [address] [place] [phone] Nav Amato MD Trigger ring finger of left hand (Primary Dx) 10/10/2018 9:15 AM EST Office Visit [facility] [address] [place] [phone] Renae Turner PA S/P trigger finger release (Primary Dx); Visit for suture removal; Trigger finger, left ring finger 09/27/2018 9:00 AM EST Minor Procedure/Test [facility] [address] [place] [phone] Nav Amato MD Trigger finger, right ring finger (Primary Dx) 09/19/2018 3:45 PM EST Consult (Initial) [facility] [address] [place] [phone] Ivan Rueda MD Lumbar facet arthropathy (Primary Dx); Spinal stenosis of lumbar region with neurogenic claudication 08/29/2018 4:00 PM EST Consult (Initial) [facility] [address] [place] [phone] Renae Turner PA Trigger finger, right ring finger (Primary Dx) 08/15/2018 11:00 AM EDT Consult (Initial) [facility] [address] [facility] [address] [place] [address] Savage Jara MD Spinal stenosis of lumbar region with neurogenic claudication (Primary Dx); Facet arthritis of lumbar region (HCC); Foraminal stenosis of lumbar region; Low back pain of over 3 months duration; Lumbosacral stenosis with neurogenic claudication (HCC); BMI 50.0-59.9, adult ([facility]) 06/01/2018 9:40 AM EDT Office Visit [facility] [address] [facility] [address] [place] [address] [address] Onge Shira, GREEN MARKETER Lymphedema of both lower extremities (Primary Dx); Ulcers of both lower legs, limited to breakdown of skin (HCC) 05/25/2018 9:40 AM EDT Office Visit [facility] [address] [facility] [address] [place] [address] [address] OngeShira, GREEN MARKETER Ulcer of left lower extremity, unspecified ulcer stage (Primary Dx); Lymphedema of both lower extremities 05/18/2018 9:00 AM EDT Nurse Visit [facility] [address] [facility] [address] [place] [address] Shashank Shetty, PIANO BUILDER Edema, unspecified type (Primary Dx); Encounter for change or removal of nonsurgical wound dressing 05/11/2018 9:00 AM EDT Office Visit [facility] [address] [facility] [address] [place] [address] [address] Onge, Shira, GREEN MARKETER Lymphedema of both lower extremities (Primary Dx); Ulcers of both lower legs, limited to breakdown of skin (HCC) 05/04/2018 9:00 AM EDT Nurse Visit [facility] [address] [facility] [address] [place] [address] Orville Gandhi, PIANO BUILDER Edema, unspecified type (Primary Dx); Encounter for change or removal of nonsurgical wound dressing 04/27/2018 9:40 AM EDT Nurse Visit [facility] [address] [facility] [address] [place] [address] Shetty, Shashank, PIANO BUILDER Edema, unspecified type (Primary Dx); Encounter for change or removal of nonsurgical wound dressing 04/13/2018 9:00 AM EDT Office Visit [facility] [address] [facility] [address] [place] [address] [address] Onge, Shira, GREEN MARKETER Ulcers of both lower legs, limited to breakdown of skin (HCC) (Primary Dx); Lymphedema of both lower extremities 04/13/2018 11:40 AM EDT Minor Procedure/Test [facility] [phone] Roger Johnson DPM Atherosclerosis of council artery of both lower extremities, with unspecified presence of clinical manifestation (Primary Dx); Onychomycosis; Pain of toes of both feet 04/06/2018 9:40 AM EDT Office Visit [facility] [address] [place] [address] [address] [place] [address] [address] OnShira meyer, GREEN MARKETER Lymphedema of both lower extremities (Primary Dx); Ulcers of both lower legs, limited to breakdown of skin (HCC) 03/30/2018 9:00 AM EDT Nurse Visit [facility] [address] [place] [phone] Shetty, Shashank, PIANO BUILDER Edema, unspecified type (Primary Dx); Encounter for change or removal of nonsurgical wound dressing 03/23/2018 9:00 AM EDT Nurse Visit [facility] [address] [place] [phone] Shetty, Shashank, PIANO BUILDER Edema, unspecified type (Primary Dx); Encounter for change or removal of nonsurgical wound dressing 03/16/2018 9:00 AM EDT Nurse Visit [facility] [address] [place] [address] Shetty, Shashank, PIANO BUILDER Edema, unspecified type (Primary Dx); Encounter for change or removal of nonsurgical wound dressing 03/02/2018 9:00 AM EDT Nurse Visit [facility] [address] [facility] [address] [place] [address] Orville Gandhi LPN Edema, unspecified type (Primary Dx); Encounter for change or removal of nonsurgical wound dressing 02/23/2018 9:20 AM EDT Nurse Visit [facility] [address] [facility] [address] [place] [address] [address] Onge, Shira, GREEN MARKETER Ulcers of both lower legs, limited to breakdown of skin (HCC) (Primary Dx); Lymphedema 02/18/2018 10:20 AM EDT Office Visit [facility] [address] [facility] [address] [place] [address] [address] Onge, Shira, GREEN MARKETER Ulcers of both lower legs, limited to breakdown of skin (HCC) (Primary Dx); Lymphedema 01/19/2018 9:30 AM EDT Nurse Visit [facility] [address] [facility] [address] [place] [address] Orville Gandhi LPN Edema, unspecified type (Primary Dx); Encounter for change or removal of nonsurgical wound dressing 01/12/2018 9:00 AM EDT Office Visit [facility] [address] [address] [address] Onge, Shira, GREEN MARKETER Ulcers of both lower legs, limited to breakdown of skin (HCC) (Primary Dx); Lymphedema of both lower extremities 01/05/2018 9:00 AM EDT Office Visit [facility] [address] [facility] [address] [place] [address] [address] Onge, Shira, GREEN MARKETER Ulcers of both lower legs, limited to breakdown of skin (HCC) (Primary Dx); Lymphedema 12/31/2017 11:20 AM EDT Nurse Visit [facility] [address] [facility] [address] [place] [address] Edema, unspecified type (Primary Dx); Encounter for change or removal of nonsurgical wound dressing 12/22/2017 9:00 AM EST Office Visit [facility] [address] [facility] [address] [place] [address] [address] Onge, Shira, GREEN MARKETER Ulcers of both lower legs, limited to breakdown of skin (HCC) (Primary Dx); Lymphedema 2017 8:20 AM EST Office Visit [facility] [address] [place] [address] [address] [place] [address] St Onge, Shira, GREEN MARKETER Ulcers of both lower legs, limited to breakdown of skin (HCC) (Primary Dx); Lymphedema 12/08/2017 9:00 AM EST Office Visit [facility] [address] [place] [phone] St Onge, Shira, GREEN MARKETER Ulcers of both lower legs, limited to breakdown of skin (HCC) (Primary Dx); Lymphedema 12/01/2017 9:00 AM EST Nurse Visit [facility] [address] [place] [phone] Jolene Castellano LPN Edema, unspecified type (Primary Dx); Encounter for change or removal of nonsurgical wound dressing 11/24/2017 9:00 AM EST Nurse Visit [facility] [address] [place] [address] Orville Gandhi LPN Edema, unspecified type (Primary Dx); Encounter for change or removal of nonsurgical wound dressing 11/17/2017 9:00 AM EST Nurse Visit [facility] [address] [place] [address] Orville Gandhi LPN Edema, unspecified type (Primary Dx); Encounter for change or removal of nonsurgical wound dressing 11/10/2017 9:00 AM EST Nurse Visit [facility] [address] [place] [phone] Gandhi, Orville, PIANO BUILDER Edema, unspecified type (Primary Dx); Encounter for change or removal of nonsurgical wound dressing 11/02/2017 9:00 AM EST Nurse Visit [facility] [address] [place] [address] [address] [place] [address] Orville Gandhi LPN Edema, unspecified type (Primary Dx); Encounter for change or removal of nonsurgical wound dressing 10/27/2017 10:40 AM EST Office Visit [facility] [address] [place] [address] [address] [place] [address] St Shira Snow, GREEN MARKETER Ulcers of both lower legs, limited to breakdown of skin (HCC) (Primary Dx); Lymphedema 10/22/2017 1:00 PM EST Nurse Visit [facility] [address] [place] [phone] Orville Gandhi LPN Edema, unspecified type (Primary Dx); Encounter for change or removal of nonsurgical wound dressing 10/19/2017 9:00 AM EST Nurse Visit [facility] [address] [place] [phone] Jolene Castellano PI[employer] BUILDER Edema, unspecified type (Primary Dx); Encounter for change or removal of nonsurgical wound dressing 10/15/2017 9:00 AM EST Nurse Visit [facility] [address] [place] [phone] Orville Gandhi LPN Edema, unspecified type (Primary Dx); Encounter for change or removal of nonsurgical wound dressing 10/12/2017 9:00 AM EST Nurse Visit [facility] [address] [place] [phone] Orville Gandhi LPN Edema, unspecified type (Primary Dx); Encounter for change or removal of nonsurgical wound dressing 10/07/2017 9:00 AM EST Office Visit [facility] [address] [place] [phone] St Shira Snow, GREEN MARKETER Ulcers of both lower legs, limited to breakdown of skin (HCC) (Primary Dx); Lymphedema 10/05/2017 Telephone [facility] [address] [place] [phone] Shira Meyers NP Appointment 09/17/2017 8:40 AM EST Office Visit [facility] [address] [place] [phone] Shira Meyers NP Ulcer of left lower extremity, unspecified ulcer stage (Primary Dx); Ulcer of right lower extremity, unspecified ulcer stage (HCC); Lymphedema 09/08/2017 9:40 AM EST Nurse Visit [facility] [address] [place] [phone] Orville Gandhi PIANO BUILDER Edema, unspecified type (Primary Dx); Encounter for change or removal of nonsurgical wound dressing 09/03/2017 1:20 PM EST Office Visit [facility] [address] [place] [phone] Shira Meyers NP Ulcers of both lower legs, limited to breakdown of skin (HCC) (Primary Dx); Lymphedema 06/28/2017 9:00 AM EDT Office Visit [facility] [address] [place] [phone] Shira Meyers NP Ulcer of lower extremity, left, with unspecified severity (Primary Dx); Ulcer of lower extremity, right, with unspecified severity (HCC); Lymphedema 06/15/2017 Telephone [facility] [address] [place] [phone] Shira Meyers NP Wound Care; Equipment/supplies 06/14/2017 9:00 AM EDT Nurse Visit [facility] [address] [place] [phone] Jolene Castellano, PIANO BUILDER Edema, unspecified type (Primary Dx); Encounter for change or removal of nonsurgical wound dressing 06/11/2017 9:00 AM EDT Nurse Visit [facility] [address] [facility] [address] [place] [address] Edema, unspecified type (Primary Dx); Encounter for change or removal of nonsurgical wound dressing 06/09/2017 10:00 AM EDT Nurse Visit [facility] [address] [facility] [address] [place] [address] Edema, unspecified type (Primary Dx); Encounter for change or removal of nonsurgical wound dressing 06/07/2017 9:00 AM EDT Nurse Visit [facility] [address] [facility] [address] [place] [address] Jolene Castellano PIANO BUILDER Edema, unspecified type (Primary Dx); Encounter for change or removal of nonsurgical wound dressing 06/02/2017 8:40 AM EDT Office Visit [facility] [address] [facility] [address] [place] [address] [address] Onge, Shira, GREEN MARKETER Ulcers of both lower legs, limited to breakdown of skin (HCC) (Primary Dx); Lymphedema; Chronic venous insufficiency 05/12/2017 9:20 AM EDT Office Visit [facility] [address] [facility] [address] [place] [address] [address] Onge, Shira, GREEN MARKETER Ulcer of lower extremity, left, with unspecified severity (Primary Dx); Ulcer of lower extremity, right, with unspecified severity (HCC); Venous stasis of lower extremity; Lymphedema 05/05/2017 9:20 AM EDT Office Visit [facility] [address] [facility] [address] [place] [address] [address] Onge, Shira, GREEN MARKETER Ulcers of both lower legs, limited to breakdown of skin (HCC) (Primary Dx); Lymphedema 04/28/2017 9:20 AM EDT Office Visit [facility] [address] [facility] [address] [place] [address] [address] Onge, Shira, GREEN MARKETER Lymphedema (Primary Dx); Ulcers of both lower legs, limited to breakdown of skin (HCC) 04/22/2017 8:40 AM EDT Office Visit [facility] [address] [facility] [address] [place] [address] [address] Onge, Shira, GREEN MARKETER Lymphedema (Primary Dx); Ulcer of lower extremity, left, with unspecified severity; Ulcer of lower extremity, right, with unspecified severity 04/14/2017 9:20 AM EDT Office Visit [facility] [address] [facility] [address] [place] [address] [address] Onge, Shira, GREEN MARKETER Lymphedema (Primary Dx); Ulcers of both lower legs, limited to breakdown of skin (HCC); Venous stasis of lower extremity 04/07/2017 9:20 AM EDT Office Visit [facility] [address] [facility] [address] [place] [address] [address] Onge, Shira, GREEN MARKETER Lymphedema (Primary Dx); Ulcer of lower extremity, left, with unspecified severity; Ulcer of lower extremity, right, with unspecified severity 03/31/2017 8:00 AM EDT Office Visit [facility] [address] [facility] [address] [place] [address] [address] Onge, Shira, GREEN MARKETER Lymphedema (Primary Dx); Ulcers of both lower legs, limited to breakdown of skin (HCC); Morbid obesity due to excess calories 03/30/2017 Telephone [facility] [address] [facility] [address] [place] [address] [address] Onge, Shira, GREEN MARKETER Unna Boot Application 03/19/2017 Telephone [facility] [address] [facility] [address] [place] [address] [address] Onge, Shira, GREEN MARKETER No Show 02/23/2017 Telephone [facility] [address] [facility] [address] [place] [address] [address] Onge, Shira, GREEN MARKETER Unna Boot Application 02/20/2017 Office Visit NON FC SA NON [facility], Unknown Provider 02/18/2017 Consult (Initial) NON [facility] [address] [place] [address] Juanjose Watson MD 02/17/2017 [facility] NON [facility] [address] [place] [address] Tamika Lomax MD 02/17/2017 8:00 AM EDT Office Visit [facility] [address] [facility] [address] [place] [address] [address] Onge, Shira, GREEN MARKETER Cellulitis of right lower extremity (Primary Dx) 02/16/2017 Telephone [facility] [address] [place] [phone] [address] Onge, Shira, GREEN MARKETER Appointment (tomorrow); Unna Boot Application 02/08/2017 10:20 AM EDT Office Visit [facility] [address] [address] [address] Onge, Shira, GREEN MARKETER Lymphedema (Primary Dx); Ulcer of lower extremity, left, with unspecified severity 02/01/2017 8:20 AM EDT Office Visit [facility] [address] [address] [address] Onge, Shira, GREEN MARKETER Lymphedema (Primary Dx); Ulcer of lower extremity, left, with unspecified severity; Venous stasis of lower extremity 01/28/2017 8:20 AM EDT Office Visit [facility] [address] [address] [address] Onge, Shira, GREEN MARKETER Lymphedema (Primary Dx); Ulcer of lower extremity, left, with unspecified severity 01/25/2017 1:20 PM EDT Office Visit [facility] [address] [address] [address] Onge, Shira, GREEN MARKETER Lymphedema (Primary Dx); Ulcer of lower extremity, left, with unspecified severity; Ulcer of lower extremity, right, with unspecified severity 01/21/2017 2:30 PM EDT Nurse Visit [facility] [address] [place] [address] [address] [place] [address] Stinehart, Anabel, PIANO BUILDER Ulcers of both lower legs (Primary Dx); Edema, unspecified type; Encounter for change or removal of nonsurgical wound dressing 01/18/2017 8:20 AM EDT Office Visit [facility] [address] [place] [address] [address] [place] [address] [address] Onge, Shira, GREEN MARKETER Lymphedema (Primary Dx); Ulcer of lower extremity, left, with unspecified severity; Ulcer of lower extremity, right, with unspecified severity 01/14/2017 8:20 AM EDT Office Visit [facility] [address] [place] [phone] [address] Onge, Shira, GREEN MARKETER Lymphedema (Primary Dx); Ulcer of lower extremity, left, with unspecified severity; Ulcer of lower extremity, right, with unspecified severity; Venous stasis of lower extremity 01/11/2017 11:00 AM EDT Nurse Visit [facility] [address] [place] [phone] Stinehart, Anabel, PIANO BUILDER Edema, unspecified type (Primary Dx); Encounter for change or removal of nonsurgical wound dressing 01/06/2017 9:00 AM EDT Office Visit [facility] [address] [place] [phone] St Onge, Shira, GREEN MARKETER Lymphedema (Primary Dx); Ulcer of lower extremity, left, with unspecified severity; Ulcer of lower extremity, right, with unspecified severity 12/30/2016 9:00 AM EDT Office Visit [facility] [address] [place] [phone] St Onge, Shira, GREEN MARKETER Lymphedema (Primary Dx); Ulcer of lower extremity, left, with unspecified severity; Ulcer of lower extremity, right, with unspecified severity 12/23/2016 9:00 AM EST Office Visit [facility] [address] [place] [address] [address] [place] [address] [address] Onge, Shira, GREEN MARKETER Lymphedema (Primary Dx); Ulcer of lower extremity, left, with unspecified severity; Ulcer of lower extremity, right, with unspecified severity 12/16/2016 1:20 PM EST Office Visit [facility] [address] [place] [address] [address] [place] [address] [address] Onge, Shira, GREEN MARKETER Ulcer of lower extremity, right, with unspecified severity (Primary Dx); Lymphedema; Ulcer of lower extremity, left, with unspecified severity 12/09/2016 9:00 AM EST Office Visit [facility] [address] [place] [address] [address] [place] [address] [address] Onge, Shira, GREEN MARKETER Ulcer of lower extremity, right, with unspecified severity (Primary Dx); Lymphedema; Ulcer of lower extremity, left, with unspecified severity 12/02/2016 10:00 AM EST Office Visit [facility] [address] [place] [phone] St Onge, Shira, GREEN MARKETER Ulcer of lower extremity, right, with unspecified severity (Primary Dx); Lymphedema; Ulcer of lower extremity, left, with unspecified severity 11/25/2016 11:00 AM EST Office Visit [facility] [address] [place] [phone] [address] Onge, Shira, GREEN MARKETER Lymphedema (Primary Dx); Ulcer of lower extremity, left, with unspecified severity [L97.929]; Ulcer of lower extremity, right, with unspecified severity [L97.919] 11/25/2016 8:00 AM EST Minor Procedure/Test [facility] [address] [place] [phone] Roger Johnson DPM Onychomycosis (Primary Dx); Pain in toes of both feet [M79.674, M79.675] 11/19/2016 8:20 AM EST Office Visit [facility] [address] [facility] [address] [place] [address] [address] Onge, Shira, GREEN MARKETER Lymphedema (Primary Dx); Ulcer of lower extremity, left, with unspecified severity [L97.929]; Ulcer of lower extremity, right, with unspecified severity [L97.919]; Venous stasis of lower extremity 11/11/2016 9:00 AM EST Office Visit [facility] [address] [facility] [address] [place] [address] [address] Onge, Shira, GREEN MARKETER Lymphedema (Primary Dx); Ulcer of lower extremity, left, with unspecified severity [L97.929]; Ulcer of lower extremity, right, with unspecified severity [L97.919] 11/04/2016 9:00 AM EST Office Visit [facility] [address] [place] [address] [address] [place] [address] [address] Onge, Shira, GREEN MARKETER Lymphedema (Primary Dx); Ulcer of lower extremity, left, with unspecified severity [L97.929]; Ulcer of lower extremity, right, with unspecified severity [L97.919] 10/28/2016 9:20 AM EST Office Visit [facility] [address] [facility] [address] [place] [address] [address] Onge, Shira, GREEN MARKETER Lymphedema (Primary Dx); Ulcer of lower extremity, left, with unspecified severity [L97.929]; Ulcer of lower extremity, right, with unspecified severity [L97.919]; Chronic venous insufficiency 10/21/2016 10:40 AM EST Office Visit [facility] [address] [facility] [address] [place] [address] [address] Onge, Shira, GREEN MARKETER Ulcer of lower extremity, left, with unspecified severity [L97.929] (Primary Dx); Ulcer of lower extremity, right, with unspecified severity [L97.919]; Venous stasis of lower extremity 10/14/2016 8:20 AM EST Office Visit [facility] [address] [facility] [address] [place] [address] [address] Onge, Shira, GREEN MARKETER Lymphedema (Primary Dx); Ulcer of lower extremity, left, with unspecified severity [L97.929]; Ulcer of lower extremity, right, with unspecified severity [L97.919] 10/07/2016 9:00 AM EST Office Visit [facility] [address] [facility] [address] [place] [address] [address] Onge, Shira, GREEN MARKETER Ulcer of lower extremity, left, with unspecified severity [L97.929] (Primary Dx); Ulcer of lower extremity, right, with unspecified severity [L97.919]; Venous stasis of lower extremity 09/30/2016 9:15 AM EST Nurse Visit [facility] [address] [place] [address] [address] [place] [address] Anabel Springer LPN Ulcers of both lower legs (Primary Dx); Edema, unspecified type [R60.9]; Encounter for change or removal of nonsurgical wound dressing 09/06/2016 [facility] [address] [place] [address] Jennifer Gibbons MD 09/02/2016 8:40 AM EST Office Visit [facility] [address] [place] [phone] [facility] Onge Shira, GREEN MARKETER Lymphedema (Primary Dx); Leg ulcer, left, with unspecified severity; Ulcer of lower extremity, right, with unspecified severity [L97.919] 08/27/2016 8:20 AM EST Office Visit [facility] [address] [facility] [address] [place] [address] [facility] On[facility] Shira, GREEN MARKETER Lymphedema (Primary Dx); Ulcer of lower extremity, left, with unspecified severity [L97.929]; Ulcer of lower extremity, right, with unspecified severity [L97.919] 08/19/2016 Telephone [facility] [address] [place] [address] [address] [place] [address] Shira Meyers GREEN MARKETER 08/19/2016 8:40 AM EDT Office Visit [facility] [address] [facility] [address] [place] [address] Shira Meyers NP Lymphedema (Primary Dx); Ulcer of lower extremity, left, with unspecified severity [L97.929]; Ulcer of lower extremity, right, with unspecified severity [L97.919] 08/05/2016 9:15 AM EDT Nurse Visit [facility] [address] [facility] [address] [place] [address] Stinehart, Anabel, PIANO BUILDER Bilateral leg ulcer, with unspecified severity (Primary Dx); Edema, unspecified type [R60.9]; Encounter for change or removal of nonsurgical wound dressing 07/29/2016 8:40 AM EDT Office Visit [facility] [address] [facility] [address] [place] [address] Shira Meyers NP Ulcer of lower extremity, left, with unspecified severity [L97.929] (Primary Dx); Ulcer of lower extremity, right, with unspecified severity [L97.919]; Lymphedema 07/15/2016 9:00 AM EDT Nurse Visit [facility] [address] [place] [address] Stinehart, Anabel, PIANO BUILDER Edema, unspecified type [R60.9] (Primary Dx); Encounter for change or removal of nonsurgical wound dressing; Bilateral leg ulcer, with unspecified severity 07/08/2016 9:00 AM EDT Nurse Visit [facility] [address] [place] [address] [address] [place] [address] Stinehart, Anabel, PIANO BUILDER Edema, unspecified type [R60.9] (Primary Dx); Encounter for change or removal of nonsurgical wound dressing 07/01/2016 9:00 AM EDT Nurse Visit [facility] [address] [facility] [address] [place] [address] Stinehart, Anabel, PIANO BUILDER Edema, unspecified type [R60.9] (Primary Dx); Encounter for change or removal of nonsurgical wound dressing; Bilateral leg ulcer, with unspecified severity 06/24/2016 9:00 AM EDT Nurse Visit [facility] [address] [facility] [address] [place] [address] Essie Fuller, [employer]OR[employer] WORKER Edema, unspecified type [R60.9] (Primary Dx); Encounter for change or removal of nonsurgical wound dressing; Ulcer of calf, unspecified laterality, with unspecified severity (HCC) [L97.209] 06/17/2016 9:20 AM EDT Office Visit [facility] [address] [facility] [address] [place] [address] Shira Meyers NP Ulcer of lower extremity, left, with unspecified severity (HCC) [L97.929] (Primary Dx); Ulcer of lower extremity, right, with unspecified severity (HCC) [L97.919]; Chronic venous insufficiency 06/10/2016 9:00 AM EDT Nurse Visit [facility] [address] [facility] [address] [place] [address] Stinehart, Anabel, PIANO BUILDER Ulcers of both lower extremities (HCC) (Primary Dx); Edema, unspecified type [R60.9]; Encounter for change or removal of nonsurgical wound dressing 06/03/2016 9:00 AM EDT Nurse Visit [facility] [address] [facility] [address] [place] [address] Stinehart, Anabel, PIANO BUILDER Edema, unspecified type [R60.9] (Primary Dx); Encounter for change or removal of nonsurgical wound dressing; Ulcer of lower extremity, unspecified laterality, with unspecified severity 05/27/2016 9:00 AM EDT Nurse Visit [facility] [address] [facility] [address] [place] [address] Stinehart, Anabel, PIANO BUILDER Edema, unspecified type [R60.9] (Primary Dx); Encounter for change or removal of nonsurgical wound dressing; Ulcers of both lower extremities (HCC) 05/20/2016 10:20 AM EDT Office Visit [facility] [address] [facility] [address] [place] [address] [address] Onge, Shira, GREEN MARKETER Ulcer of lower extremity, left, with unspecified severity (HCC) [L97.929] (Primary Dx); Ulcer of lower extremity, right, with unspecified severity (HCC) [L97.919]; Edema, unspecified type [R60.9]; Venous stasis of lower extremity 05/06/2016 8:40 AM EDT Nurse Visit [facility] [address] [facility] [address] [place] [address] [address] Onge, Shira, GREEN MARKETER Ulcer of lower extremity, left, with unspecified severity (HCC) [L97.929] (Primary Dx); Ulcer of lower extremity, right, with unspecified severity (HCC) [L97.919]; Venous stasis of lower extremity 04/29/2016 8:30 AM EDT Nurse Visit [facility] [address] [facility] [address] [place] [address] Stinehart, Anabel, PIANO BUILDER Ulcers of both lower extremities (HCC) (Primary Dx); Edema, unspecified type [R60.9]; Encounter for change or removal of nonsurgical wound dressing 04/22/2016 9:00 AM EDT Nurse Visit [facility] [address] [facility] [address] [place] [address] Stinehart, Anabel, PIANO BUILDER Edema, unspecified type [R60.9] (Primary Dx); Encounter for change or removal of nonsurgical wound dressing 04/15/2016 9:00 AM EDT Office Visit [facility] [address] [facility] [address] [place] [address] [address] Onge, Shira, GREEN MARKETER Ulcer of lower extremity, left, with unspecified severity (HCC) [L97.929] (Primary Dx); Venous stasis of lower extremity 04/09/2016 2:30 PM EDT Nurse Visit [facility] [address] [facility] [address] [place] [address] Stinehart, Anabel, PIANO BUILDER Edema, unspecified type [R60.9] (Primary Dx); Encounter for change or removal of nonsurgical wound dressing 04/02/2016 9:15 AM EDT Nurse Visit [facility] [address] [facility] [address] [place] [address] Stinehart, Anabel, PIANO BUILDER Bilateral leg ulcer, with unspecified severity (Primary Dx); Edema, unspecified type [R60.9]; Encounter for change or removal of nonsurgical wound dressing 03/18/2016 8:30 AM EDT Nurse Visit [facility] [address] [place] [address] [address] [place] [address] Stinehart, Anabel, PIANO BUILDER Edema, unspecified type [R60.9] (Primary Dx); Encounter for change or removal of nonsurgical wound dressing 03/12/2016 Telephone [facility] [address] [place] [phone] Tamika Lomax MD Results 03/12/2016 2:00 PM EDT Office Visit [facility] [address] [place] [phone] Tamika Lomax MD Bilateral leg ulcer, limited to breakdown of skin (HCC) (Primary Dx); Presence of IVC filter 03/11/2016 8:20 AM EDT Office Visit [facility] [address] [place] [phone] St OnShira meyer NP Lymphedema (Primary Dx); Ulcer of lower extremity, left, with unspecified severity (HCC) [L97.929]; Ulcer of lower extremity, right, with unspecified severity (HCC) [L97.919] 03/05/2016 8:20 AM EDT Office Visit [facility] [address] [facility] [address] [place] [address] St Onge, Shira, GREEN MARKETER Lymphedema (Primary Dx); Ulcer of lower extremity, left, with unspecified severity (HCC) [L97.929]; Ulcer of lower extremity, right, with unspecified severity (HCC) [L97.919] 02/26/2016 3:00 PM EDT Office Visit [facility] [address] [facility] [address] [place] [address] St Onge, Shira, GREEN MARKETER Ulcer of lower extremity, left, with unspecified severity (HCC) [L97.929] (Primary Dx); Ulcer of lower extremity, right, with unspecified severity (HCC) [L97.919]; Lymphedema 02/13/2016 2:15 PM EDT Office Visit [facility] [address] [address] Tamika Lomax MD Venous stasis dermatitis of both lower extremities (Primary Dx) 02/06/2016 Telephone [facility] [address] [place] [phone] Roger Johnson DPM FYAric 01/15/2016 8:20 AM EDT Office Visit [facility] [address] [facility] [address] [place] [address] St Onge, Shira, GREEN MARKETER Lymphedema (Primary Dx); Ulcer of lower extremity, left, with unspecified severity (HCC) [L97.929] 01/09/2016 8:20 AM EDT Office Visit [facility] [address] [facility] [address] [place] [address] St Onge, Shira, GREEN MARKETER Ulcer of lower extremity, left, with unspecified severity (HCC) [L97.929] (Primary Dx); Ulcer of lower extremity, right, with unspecified severity (HCC) [L97.919]; Lymphedema; Chronic venous insufficiency 2015 8:30 AM EST Nurse Visit [facility] [address] [facility] [address] [place] [address] Stinehart, Anabel, PIANO BUILDER Ulcer of lower extremity, unspecified laterality, with unspecified severity (Primary Dx); Edema, unspecified type [R60.9]; Encounter for change or removal of nonsurgical wound dressing 12/10/2015 8:00 AM EST Office Visit [facility] [address] [facility] [address] [place] [address] St Shira Snow NP Lymphedema (Primary Dx); Ulcer of lower extremity, left, with unspecified severity (HCC) [L97.929]; Venous stasis of lower extremity 11/04/2015 10:00 AM EST Nurse Visit [facility] [address] [place] [address] [address] [place] [address] Stinehart, Anabel, PIANO BUILDER Edema, unspecified type [R60.9] (Primary Dx); Encounter for change or removal of nonsurgical wound dressing 11/01/2015 9:15 AM EST Nurse Visit [facility] [address] [place] [phone] Stinehart, Anabel, PIANO BUILDER Encounter for change or removal of nonsurgical wound dressing (Primary Dx); Ulcer of lower extremity, unspecified laterality, with unspecified severity 10/31/2015 11:20 AM EST Office Visit [facility] [address] [place] [address] Roger Johnson DPM Atherosclerosis of council artery of both lower extremities, with unspecified presence of clinical manifestation (HCC) [I70.203] (Primary Dx); Onychomycosis; Pain of toes of both feet 10/28/2015 9:15 AM EST Nurse Visit [facility] [address] [place] [address] Stinehart, Anabel, PIANO BUILDER Ulcer of lower extremity, unspecified laterality, with unspecified severity (Primary Dx); Encounter for change or removal of nonsurgical wound dressing 10/24/2015 9:00 AM EST Office Visit [facility] [address] [facility] [address] [place] [address] [address] Onbetsy Shira, GREEN MARKETER Ulcer of lower extremity, right, with unspecified severity (HCC) [L97.919] (Primary Dx); Chronic venous insufficiency; Venous stasis of lower extremity; Morbid obesity, unspecified obesity type (HCC) [E66.01]; Ulcer of lower extremity, left, with unspecified severity (HCC) [L97.929] 10/14/2015 8:30 AM EST Nurse Visit [facility] [address] [place] [address] Anabel Springer, PIANO BUILDER Leg ulcer, unspecified laterality, with unspecified severity (Primary Dx); Generalized edema [R60.1]; Encounter for change or removal of nonsurgical wound dressing 10/03/2015 8:45 AM EST Nurse Visit [facility] [address] [place] [address] [address] [place] [address] Anabel Springer, PIANO BUILDER Non-pressure ulcer of lower extremity, unspecified laterality, with unspecified severity (HCC) (Primary Dx); Generalized edema [R60.1]; Encounter for change or removal of nonsurgical wound dressing 09/26/2015 8:20 AM EST Office Visit [facility] [address] [facility] [address] [place] [address] [address] RolandoShira meyer, GREEN MARKETER Ulcer of lower extremity, left, with unspecified severity (HCC) [L97.929] (Primary Dx); Ulcer of lower extremity, right, with unspecified severity (HCC) [L97.919]; Edema, due to unspecified malnutrition type, unspecified edema; Morbid obesity, unspecified obesity type (HCC) [E66.01] 09/19/2015 8:30 AM EST Nurse Visit [facility] [address] [facility] [address] [place] [address] Stinehart, Anabel, PIANO BUILDER Ulcer of lower extremity, unspecified laterality, with unspecified severity (Primary Dx); Generalized edema [R60.1]; Encounter for change or removal of nonsurgical wound dressing 09/06/2015 9:45 AM EST Nurse Visit [facility] [address] [facility] [address] [place] [address] Stinehart, Anabel, PIANO BUILDER Ulcers of both lower extremities (HCC) (Primary Dx); Edema, unspecified edema [R60.9]; Encounter for change or removal of nonsurgical wound dressing 08/29/2015 8:20 AM EST Office Visit [facility] [address] [facility] [address] [place] [address] [address] OnShira meyer, GREEN MARKETER Ulcer of lower extremity, left, with unspecified severity (HCC) [L97.929] (Primary Dx); Ulcer of lower extremity, right, with unspecified severity (HCC) [L97.919]; Venous stasis of lower extremity; Morbid obesity, unspecified obesity type (HCC) [E66.01] 08/22/2015 8:30 AM EST Nurse Visit [facility] [address] [facility] [address] [place] [address] Stinehart, Anabel, PIANO BUILDER Edema, unspecified edema [R60.9] (Primary Dx); Encounter for change or removal of nonsurgical wound dressing 08/15/2015 8:30 AM EDT Nurse Visit [facility] [address] [facility] [address] [place] [address] Stinehart, Anabel, PIANO BUILDER Generalized edema [R60.1] (Primary Dx); Encounter for change or removal of nonsurgical wound dressing 08/08/2015 8:45 AM EDT Nurse Visit [facility] [address] [facility] [address] [place] [address] Stinehart, Anabel, PIANO BUILDER 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); Varicose veins of left lower extremity with inflammation; Edema, unspecified edema [R60.9]; Encounter for change or removal of nonsurgical wound dressing 08/01/2015 8:20 AM EDT Office Visit [facility] [address] [facility] [address] [place] [address] Shira Meyers NP Venous stasis dermatitis of both lower extremities [I83.11, I83.12] (Primary Dx); Morbid obesity, unspecified obesity type (HCC) [E66.01]; Ulcer of lower extremity, right, with unspecified severity (HCC) [L97.919]; Venous stasis of lower extremity 07/26/2015 10:30 AM EDT Nurse Visit [facility] [address] [facility] [address] [place] [address] Stinehart, Anabel, PIANO BUILDER Edema, unspecified edema [R60.9] (Primary Dx); Encounter for change or removal of nonsurgical wound dressing 07/08/2015 11:00 AM EDT Nurse Visit [facility] [address] [facility] [address] [place] [address] Stinehart, Anabel, PIANO BUILDER Ulcers of both lower extremities (HCC) (Primary Dx); Generalized edema [782.3]; Encounter for change or removal of nonsurgical wound dressing 07/08/[address] [facility] [address] [facility] [address] [place] [address] Shira Meyers NP Unna Boot Application 06/28/2015 2:45 PM EDT Nurse Visit [facility] [address] [facility] [address] [place] [address] Stinehart, Anabel, PIANO BUILDER Ulcers of both lower extremities (HCC) (Primary Dx); Encounter for change or removal of nonsurgical wound dressing 06/21/2015 10:00 AM EDT Nurse Visit [facility] [address] [facility] [address] [place] [address] Stinehart, Anabel, PIANO BUILDER Ulcer of lower extremity, unspecified laterality, with unspecified severity (Primary Dx); Edema; Encounter for change or removal of nonsurgical wound dressing 06/11/2015 9:45 AM EDT Nurse Visit [facility] [address] [facility] [address] [place] [address] Spenser Avilesa, PIANO BUILDER Edema (Primary Dx); Encounter for change or removal of nonsurgical wound dressing; Ulcer of calf, unspecified laterality, with unspecified severity (HCC) [707.12] 06/05/2015 9:15 AM EDT Nurse Visit [facility] [address] [place] [address] [address] [place] [address] Angela Aviles, PIANO BUILDER Edema (Primary Dx); Encounter for change or removal of nonsurgical wound dressing; Ulcer of calf, unspecified laterality, with unspecified severity (HCC) [707.12] 05/30/2015 10:20 AM EDT Office Visit [facility] [address] [place] [address] Shira Meyers, AZRA Morbid obesity (Primary Dx); Ulcer of lower extremity, right, with unspecified severity (HCC) [707.10]; Ulcer of lower extremity, left, with unspecified severity (HCC) [707.10]; Chronic venous insufficiency; Venous stasis of lower extremity 03/15/2015 8:40 AM EDT Office Visit [facility] [address] [place] [address] [address] Shira Snow, GREEN MARKETER Edema (Primary Dx); Ulcers of both lower legs 03/08/2015 9:00 AM EDT Nurse Visit [facility] [address] [place] [address] [address] [place] [address] Spenser Avilesa, PIANO BUILDER Edema (Primary Dx); Encounter for change or removal of nonsurgical wound dressing; Ulcer of calf, unspecified laterality, with unspecified severity (HCC) [707.12]; Ulcer of ankle, unspecified laterality, with unspecified severity (HCC) [707.13] 03/04/2015 8:45 AM EDT Nurse Visit [facility] [address] [facility] [address] [place] [address] Angela Aviles, PIANO BUILDER Edema (Primary Dx); Encounter for change or removal of nonsurgical wound dressing 02/22/2015 9:00 AM EDT Nurse Visit [facility] [address] [facility] [address] [place] [address] Angela Aviles, PIANO BUILDER Edema (Primary Dx); Encounter for change or removal of nonsurgical wound dressing 02/15/2015 8:40 AM EDT Office Visit [facility] [address] [facility] [address] [place] [address] [address] OnShira meyer, AZRA Edema (Primary Dx); Ulcer of lower extremity, right, with unspecified severity (HCC) [707.10]; Venous stasis of lower extremity 02/05/2015 2:00 PM EDT Nurse Visit [facility] [address] [facility] [address] [place] [address] Beba Parker LPN Ulcer of lower limb (Primary Dx); Edema; Encounter for change or removal of nonsurgical wound dressing 02/05/2015 Telephone [facility] [address] [facility] [address] [place] [address] [address] OngeShira, GREEN MARKETER Edema 12/28/2014 8:20 AM EDT Office Visit [facility] [address] [facility] [address] [place] [address] [address] OngeShira, GREEN MARKETER Edema (Primary Dx); Ulcer of lower extremity (HCC); Venous stasis of lower extremity 12/21/2014 9:15 AM EST Nurse Visit [facility] [address] [facility] [address] [place] [address] Essie Fuller LVN LPN Edema (Primary Dx); Encounter for change or removal of nonsurgical wound dressing; Ulcer of calf (HCC) 12/14/2014 8:30 AM EST Nurse Visit [facility] [address] [facility] [address] [place] [address] Parker, Yalissa, PIANO BUILDER Edema (Primary Dx); Encounter for change or removal of nonsurgical wound dressing 12/07/2014 8:20 AM EST Office Visit [facility] [address] [address] Shira Meyers NP Ulcer of lower extremity (HCC) (Primary Dx); Venous stasis of lower extremity 12/03/2014 9:00 AM EST Nurse Visit [facility] [address] [place] [address] Stinehart, Anabel, PIANO BUILDER Edema (Primary Dx); Encounter for change or removal of nonsurgical wound dressing 11/23/2014 9:00 AM EST Nurse Visit [facility] [address] [place] [address] Parker, Yalissa, PIANO BUILDER Edema (Primary Dx); Encounter for change or removal of nonsurgical wound dressing 11/16/2014 9:00 AM EST Nurse Visit [facility] [address] [place] [address] Stinehart, Anabel, PIANO BUILDER Edema (Primary Dx); Encounter for change or removal of nonsurgical wound dressing 11/15/2014 Telephone [facility] [address] [place] [phone] Roger Johnson DPM FYAric 11/09/2014 8:40 AM EST Office Visit [facility] [address] [place] [address] Shira Meyers NP Ulcer of lower extremity (HCC) (Primary Dx); Venous stasis of lower extremity 08/22/2014 3:30 PM EST Minor Procedure/Test [facility] [address] [place] [address] Roger Johnson, LANCE Type II diabetes mellitus with peripheral circulatory disorder (Primary Dx); Onychomycosis; Peripheral angiopathy in diseases classified elsewhere; Pain in limb 08/09/2014 Telephone [facility] [address] [facility] [address] [place] [address] Shira Meyers NP Patient Questions ; Equipment/supplies 08/09/2014 8:20 AM EDT Office Visit [facility] [address] [facility] [address] [place] [address] Shira Meyers NP Lymphedema (Primary Dx); Ulcer of lower extremity (HCC); Chronic venous insufficiency 07/26/2014 8:20 AM EDT Office Visit [facility] [address] [facility] [address] [place] [address] Shira Meyers NP Ulcer of lower extremity (HCC) (Primary Dx); Chronic venous insufficiency; Morbid obesity; Venous stasis of lower extremity 07/25/2014 Telephone [facility] [address] [facility] [address] [place] [address] Tamika Lomax MD Wound Care; Equipment/supplies 07/20/2014 10:00 AM EDT Office Visit [facility] [address] [facility] [address] [place] [address] Tamika Lomax MD Venous stasis dermatitis (Primary Dx); Venous ulcer of leg (HCC) 05/31/2014 8:40 AM EDT Office Visit [facility] [address] [facility] [address] [place] [address] Shira Meyers NP Ulcer of lower extremity (HCC) (Primary Dx); Chronic venous insufficiency 05/04/2014 Telephone [facility] [address] [facility] [address] [place] [address] Shira Meyers NP No Show 03/29/2014 10:00 AM EDT Office Visit [facility] [address] [facility] [address] [place] [address] [address] Shira Snow NP Morbid obesity (Primary Dx); Ulcer of lower extremity (HCC); Venous stasis of lower extremity 02/26/2014 10:00 AM EDT Office Visit [facility] [address] [facility] [address] [place] [address] [address] OnShira meyer NP Ulcer of lower extremity (HCC) (Primary Dx); Venous stasis of lower extremity 01/29/2014 1:20 PM EDT Office Visit [facility] [address] [facility] [address] [place] [address] St Shira Snow NP Ulcer of lower extremity (HCC) (Primary Dx); Venous stasis of lower extremity; Morbid obesity 01/23/2014 11:00 AM EDT Office Visit [facility] [address] [facility] [address] [place] [address] St Shira Snow NP Edema (Primary Dx); Morbid obesity; Ulcer of lower extremity (HCC); Venous stasis of lower extremity 01/16/2014 11:00 AM EDT Office Visit [facility] [address] [facility] [address] [place] [address] St Shira Snow NP Morbid obesity (Primary Dx); Venous stasis of lower extremity; Edema; Ulcer of lower extremity (HCC) 11/23/2013 Telephone [facility] [address] [place] [phone] Roger Johnson DPM FYAric 11/22/2013 Telephone [facility] [address] [facility] [address] [place] [address] St Shira Snow NP No Show 10/10/2013 10:40 AM EST Office Visit [facility] [address] [facility] [address] [place] [address] [address] Onbetsy Shira, GREEN MARKETER Ulcer of lower extremity (HCC) (Primary Dx); Venous stasis of lower extremity 09/05/2013 9:20 AM EST Office Visit [facility] [address] [facility] [address] [place] [address] [address] Onge Shira, GREEN MARKETER Morbid obesity (Primary Dx); Ulcer of lower extremity (HCC); Chronic venous insufficiency 08/15/2013 9:40 AM EDT Office Visit [facility] [address] [facility] [address] [place] [address] [address] Onge Shira, GREEN MARKETER Morbid obesity (Primary Dx); Ulcer of lower extremity (HCC); Venous stasis of lower extremity 08/09/2013 1:30 PM EDT Consult (Initial) [facility] [address] [place] [phone] Roger Johnson DPM Type II diabetes mellitus with peripheral circulatory disorder (Primary Dx); Onychomycosis; Peripheral angiopathy in diseases classified elsewhere; Pain in limb 07/24/2013 10:30 AM EDT Office Visit [facility] [address] [facility] [address] [place] [address] Tamika Lomax MD Venous ulcer of leg (HCC) (Primary Dx); Venous insufficiency 07/07/2013 9:00 AM EDT Office Visit [facility] [address] [facility] [address] [place] [address] [address] OnShira meyer, GREEN MARKETER Ulcer of lower extremity (HCC) (Primary Dx); Venous stasis of lower extremity; Morbid obesity 06/21/2013 2:30 PM EDT Office Visit [facility] [address] [facility] [address] [place] [address] Tamika Lomax MD Venous ulcer of leg (HCC) (Primary Dx) 06/15/2013 Telephone [facility] [address] [facility] [address] [place] [address] Tamika Lomax MD Wound Care 06/14/2013 Minor Procedure/Test NON FC [facility] [address] [place] [address] Tamika Lomax MD 06/09/2013 Orders Only [facility] [address] [facility] [address] [place] [address] Shilpi Vasquez Tech 06/09/2013 9:00 AM EDT Nurse Visit [facility] Pre-Admission Testing [address] [address] Ally Ervin RN Leg ulcer (HCC) (Primary Dx) 06/09/2013 8:00 AM EDT Office Visit [facility] Pre-Admission Testing [address] [address] Yolande Garcia NP Pre-operative examination (Primary Dx); Venous ulcer of leg (HCC); Deep vein thrombosis (HCC); HTN (hypertension); Sleep apnea; Spinal stenosis 06/07/2013 2:45 PM EDT Office Visit [facility] [address] [facility] [address] [place] [address] Tamika Lomax MD Leg ulcer (HCC) (Primary Dx); Venous stasis 05/31/2013 9:00 AM EDT Nurse Visit [facility] [address] [facility] [address] [place] [address] Anabel Springer LPN Ulcer of lower extremity (HCC) (Primary Dx); Edema; Encounter for change or removal of nonsurgical wound dressing 05/24/2013 9:20 AM EDT Office Visit [facility] [address] [facility] [address] [place] [address] Shira Meyers NP Ulcer of lower extremity (HCC) (Primary Dx); Venous stasis of lower extremity 05/18/2013 Orders Only FAM PRAC UNSPECIFIED Malik Nolan DO 05/17/2013 9:15 AM EDT Nurse Visit [facility] [address] [facility] [address] [place] [address] Anabel Springer LPN Edema (Primary Dx); Encounter for change or removal of nonsurgical wound dressing; Ulcer of calf (HCC) 05/10/2013 9:15 AM EDT Nurse Visit [facility] [address] [facility] [address] [place] [address] Anabel Springer LPN Ulcer of lower extremity (HCC) (Primary Dx); Edema; Encounter for change or removal of nonsurgical wound dressing 05/03/2013 9:20 AM EDT Office Visit [facility] General Vascular Surgery [address] [facility] [address] [place] [address] Shira Meyers NP Morbid obesity (Primary Dx); Ulcer of lower extremity (HCC); Venous stasis of lower extremity 04/26/2013 9:20 AM EDT Consult (Initial) [facility] General Vascular Surgery [address] [facility] [address] [place] [address] Shira Meyers NP Ulcer of lower extremity [...] stasis 1 PATCH DAILY Active NYSTATIN, TOPICAL, [id number] U/GM OintmentIndicati ons:Leg ulcer (HCC),Venous stasis None [...] Name Administration Dates Next Due COVID-19, mRNA (Hostspot Pre F 2022) Monovalent, 30 mcg/0.3 ml 10/15/2021,01/08/2021,12/18/2020 Covid-19, mRNA (Hostspot Pre F 2022) Monovalent, 30 mcg/0.3 ml opal-sucrose (12+) 05/21/2022 Influenza,injectable,quad,Prsrv Fr 06/17/2021, Influenza,injectable,quad,pr eserva tive 07/06/2019,08/02/2018,06/29/2017, 01 6,07/02/2015 Influenza,recombinant,quad,i njecta ble,Prsrv Fr 07/21/2022 Influenza,seasonal,trivalent ,prese rvative (FLUZONE MDV) 06/24/2012 PPV23 (Pneumovax) 09/25/2017 Tdap 12/07/2019 Zoster (Shingrix) 07/22/2022,05/06/2022 Social History Smoking Status as of 12/20/2024 Tobacco Use Types Packs/Day Years Used Date [...] Not on file Procedures * Due to [place] state law, this organization might not be [...] DIAGNOSTIC PROCE 05/18/2013 Results * Due to [place] state law, this organization might not be sharing negative HIV tests. * UNSPECIFIED MAJOR PROCEDURE (09/29/2019) Joshua Hendrix MD PROCEDURES Final Resul t * (ABNORMAL) CBC WITH 5 PART DIFF (02/19/2017 7:20 AM EDT) Only the most recent of3 resultswithin the time period is included. WHITE BLOOD COUNT 6.4 3.9 - 11.0 x1000/uL [facility] Comment: Smear review performed when a >50% change is noted in any parameter, or more than 72 hours has elapsed since the last CBC. RBC 3.47(L) 4.30 - 5.80 mil/ul [facility] Hemoglobin 10.8(L) 12.5 - 17.0 g/dL [facility] HCT (HEMATOCRIT) 33.4(L) 36.0 - 50.0 % [facility] MCV 96 80 - 100 fL [facility] MCH 31 27 - 33 pg [facility] MCHC 32 31 - 36 g/dL [facility] RDW 14.7(H) 11.4 - 14.4 % [facility] PLATELETS 337 150 - 450 x1000/uL [facility] MPV 9.6 7.0 - 11.0 fL [facility] NEUTROPHILS 69 % [facility] LYMPHOCYTE % 16 % [facility] MONOCYTE % 12 % [facility] EOSINOPHIL % 2 % [facility] BASOPHIL % 1 % [facility] NEUTROPHILS (#) 4.4 1.8 - 7.0 x1000/uL [facility] LYMPHOCYTES # 1.0 0.7 - 4.5 x1000/uL [facility] MONOCYTES # 0.8 0.1 - 0.8 x1000/uL [facility] EOSINOPHILS # 0.1 0.0 - 0.4 x1000/uL [facility] BASOPHILS # 0.1 0.0 - 0.2 x1000/uL [facility] 02/19/2017 7:20 AM EDT 02/19/2017 7:20 AM EDT us Tamika Lomax MD LABORATORY Final Res ult [facility] [address] [place] [address] * (ABNORMAL) PROTHROMBIN TIME (02/19/2017 7:20 AM EDT) Only the most recent of3 resultswithin the time period is included. PT (PROTHROMBIN TIME) 19.0(H) 9.1 - 12.0 sec [facility] INR 1.8(L) 2.0 - 3.5 [facility] Comment: INR reference interval applies to patients on anticoagulant therapy. ??Suggested INR therapeutic range for oral anticoagulant therapy:(Stabilized anticoagulated patients) ?Routine Therapy: ? 2.0-3.0 ?Recurrent Myocardial Infarction or ?Mechanical Prosthetic Valves: ?2.5-3.5 02/19/2017 7:20 AM EDT 02/19/2017 7:20 AM EDT us Tamika Lomax MD LABORATORY Final Res ult [facility] [address] [place] [address] * URINALYSIS,C&S IF INDICATED (02/18/2017 8:33 PM EDT) COLOR (URINE) YELLOW [facility] APPEARANCE (URINE) CLOUDY [facility] GLUCOSE (URINE) NEGATIVE Negative mg/dL [facility] BILIRUBIN (URINE) NEGATIVE Negative [facility] Ketones (Urine) NEGATIVE Negative mg/dL [facility] SPECIFIC GRAVITY 1.022 1.005 - 1.030 [facility] BLOOD (URINE) NEGATIVE Negative [facility] PH (URINE) 5.5 5.0 - 8.0 [facility] PROTEIN (URINE) NEGATIVE Neg-Trace mg/dL [facility] UROBILINOGEN 0.2 0.2 - 1.0 mg/dL [facility] NITRITE (URINE) NEGATIVE Negative [facility] WBC (URINE) NEGATIVE Negative [facility] Microscopic (Urine) [facility] Comment:Microscopic not leonor cated Culture Indication NO [facility] 02/18/2017 8:33 PM EDT 02/18/2017 8:33 PM EDT us Tamika Lomax MD LABORATORY Final Res ult Performing Organization Address City/[facility]/ZIP Co de Phone Number [facility] [address] [place] [address] * CULTURE, BLOOD #2 (02/17/2017 3:10 PM EDT) SOURCE: Venipuncture [facility] Result(s) No growth after 5 days incubation [facility] REPORT STATUS: Final [facility] 02/17/2017 3:10 PM EDT 02/17/2017 3:10 PM EDT us Tamika Lomax MD LABORATORY Final Res ult Performing Organization Address [facility]/ZIP Co de Phone Number [facility] [address] [place] [address] * CULTURE, BLOOD #1 (02/17/2017 3:05 PM EDT) SOURCE: Venipuncture [facility] Result(s) No growth after 5 days incubation [facility] REPORT STATUS: Final [facility] 02/17/2017 3:05 PM EDT 02/17/2017 3:05 PM EDT Tamika Lomax MD LABORATORY Final Res ult [facility] [address] [place] [address] * PHOSPHORUS (02/17/2017 3:05 PM EDT) PHOSPHATE 3.0 2.5 - 4.5 mg/dL [facility] 02/17/2017 3:05 PM EDT 02/17/2017 3:05 PM EDT Tamika Lomax MD LABORATORY Final Res ult Performing Organization Address City/[facility]/ZIP Co de Phone Number [facility] [address] [place] [address] * MAGNESIUM (02/17/2017 3:05 PM EDT) MAGNESIUM 1.8 1.6 - 2.6 mg/dL [facility] 02/17/2017 3:05 PM EDT 02/17/2017 3:05 PM EDT Tamika Lomax MD LABORATORY Final Res ult Performing Organization Address [facility] Co de Phone Number [facility] [address] [place] [phone] * (ABNORMAL) BASIC METABOLIC PANEL (02/17/2017 3:05 PM EDT) Glucose 128(H) 65 - 99 mg/dL [facility] BUN 11 5 - 26 mg/dL [facility] CREATININE 0.93 0.5 - 1.5 mg/dL [facility] BUN/Creatinine Ratio 12 8 - 27 [facility] GLOM FILT RATE, EST 94.1 >59 mL/min [facility] IF -KENNETH N 109.0 >59 mL/min [facility] SODIUM 139 134 - 144 mEq/L [facility] POTASSIUM 3.7 3.6 - 5.6 mEq/L [facility] CHLORIDE 104 96 - 109 mEq/L [facility] CARBON DIOXIDE 23 20 - 32 mEq/L [facility] ANION GAP 12.0 8 - 15 [facility] CALCIUM 8.5 8.3 - 10.0 mg/dL [facility] 02/17/2017 3:05 PM EDT 02/17/2017 3:05 PM EDT us Tamika Lomax MD LABORATORY Final Res ult Performing Organization Address City/[facility]/ZIP Co de Phone Number [facility] [address] [place] [address] * CXR 2 VIEW AP/PA AND LAT (02/17/2017 1:59 PM EDT) RADIOLOGY REPORT [facility] Department of Radiology [address] [place] [address], [address] Name: RICARDO REECE : 63 Date of Service: 02/17/17 1455 Acct Number: [id number] Order Number: ??[id number] ?Location: [facility] Report Number: [id number] ?Service: ADM IN/HENRRY Requesting Physician: Larry Burgos Category: RADIOLOGY ??[facility] Exam: CHEST 2 VIEW (DEPARTMENT) ?? [...] is seen. Date/Time of Dictation: 02/17/17 1503 Director Center (if applicable): Approved By Attending Radiologist: Dylon Garcia 02/17/17 1503 [facility] Department of Radiology [address] [place] [address], [address] ? [phone] ? [facility] Anatomical Region Laterality Modality Other 02/17/2017 1:59 PM EDT Narrative 02/17/2017 3:04 PM EDT Reason for Study/History: Department of Radiology TEST(S) PROCESSED BY [facility] XRAY us Unknown Provider [facility] IMAGING-[facility] Final Resul t * CULTURE,ANAEROBIC (06/14/2013 10:50 AM EDT) SOURCE: Tissue wound rt leg [facility] GRAM STAIN Many (>25/lpf) WBC No bacteria seen [facility] Result(s) No anaerobes isolated Aerobic Gram Positive Cocci [facility] REPORT STATUS: Final [facility] 06/14/2013 10:5 0 AM EDT 06/14/2013 10:50 AM EDT Tamika Lomax MD LABORATORY Final Res ult Performing Organization Address [facility] Co de Phone Number [facility] [address] [place] [address] * CULTURE,ANY SOURCE (06/14/2013 10:48 AM EDT) SOURCE: Tissue wound rt leg [facility] GRAM STAIN Many (>25/lpf) WBC No bacteria seen [facility] Result(s) Streptococcus species Group G - Light growth (1-2+) Mixed gram positive organisms - Rare growth [facility] REPORT STATUS: Final [facility] 06/14/2013 10:4 8 AM EDT 06/14/2013 10:48 AM EDT Tamika Lomax MD LABORATORY Final Res ult Performing Organization Address City/[facility]/ZIP Co de Phone Number [facility] [address] [place] [address] * UNSPECIFIED MAJOR PROCEDURE (06/14/2013) Narrative Transcriptions [...] was 16 cm2. SURGEON: Dr. Tamika Lomax. ELECTRIFIER OPERATOR: Dr. Bradley. ANESTHESIA: General. ESTIMATED BLOOD LOSS: [...] underneath. Once this was accomplished, the [employer] pan devulcanizer was brought into the field and the [...] 11:51 A TT: 12:06 P Doc #: [id number] cc: MD Malik Washburn MD Tamika Lomax [...] SYSTEM 06/09/2013 7:25 AM EDT Yolande Garcia GREEN MARKETER CARDIOVASCULAR-WITH INBSKT R TG Final Result MUSE [...] Unspecified venous (peripheral) insufficiency 07/26/2014 Morbid obesity ([facility]) Morbid obesity 07/26/2014 Venous stasis of [...] Onychomycosis Dermatophytosis of nail 10/31/2015 Atherosclerosis of council artery of both lower extremities, with unspecified [...] lower legs, limited to breakdown of skin ([facility]) 12/08/2017 Lymphedema Other lymphedema 12/08/2017 Ulcers of both lower legs, limited to breakdown of skin ([facility]) 2017 Lymphedema Other lymphedema 2017 Ulcers of both lower legs, limited to breakdown of skin ([facility]) 12/22/2017 Lymphedema Other lymphedema 12/22/2017 Edema, unspecified type 12/31/2017 Encounter for change or removal of nonsurgical wound dressing 12/31/2017 Ulcers of both lower legs, limited to breakdown of skin ([facility]) 01/05/2018 Lymphedema Other lymphedema 01/05/2018 Ulcers [...] Onychomycosis Dermatophytosis of nail 04/13/2018 Atherosclerosis of council artery of both lower extremities, with unspecified [...] right leg, limited to breakdown of skin ([facility]) 03/05/2021 Care Teams Ice Cream Freezer Assistant Relationship Specialty Start Date End Date Destiny Trinidad MD [facility] [address] [place] [id number] PCP - General Family Medicine 12/22/17
--- OUTSIDE RECORDS SUMMARY | 2024-12-20 16:55 | XMS_ITS | Encounter Summary ---
Author Organization [facility] Address [address] [place] [address] Care Team Providers Care Gas Turbine Powerplant Mechanic Name Role Phone Damion Maynard MD Primary Care Provider U Destiny Dewey MD Primary Care Provider [phone] Reason for Visit * Reason Comments Appointment tomorrow Unna Boot Application Encounter Details Date Type Department Care Team (Late st Contact Info) Description 02/16/2017 Telephone [facility] General Vascular Surgery [address] [facility] [address] [place] [address] Shira Meyers NP Appointment (tomorrow); Unna Boot [...] he is seeing a doctor at the [facility] in [place] at 10:30 - a Dr. Zelaya-who is going to want to talk to Shira Meyers about his situation. So patient is asking to be seen in time tomorrow to get to his 10 30 appointment in [place] He will be cancelling his other [place] appointment with Podiatry at 8:30. Please advise [phone] documented in this encounter Plan of Treatment Not on file documented as of this encounter Visit Diagnoses Not on filedocumented in this encounter Care Teams Gas Turbine Powerplant Mechanic Relationship Specialty Start Date End Date Damion Manyard MD PCP - General Family Medicine 05/20/16 12/21/[address] [facility] [address] [place] [address] PCP - General Family Medicine 12/22/17 documented as of this encounter
--- OUTSIDE RECORDS SUMMARY | 2024-12-20 16:55 | XMS_ITS | Encounter Summary ---
Author Organization [facility] Address [address] [place] [address] Care Team Providers Care Java Developer Architect Name Role Phone Damion Maynard MD Primary Care Provider U Destiny Dewey MD Primary Care Provider [phone] Reason for Visit * Reason Comments Unna Boot Application Encounter Details Date Type Department Care Team (Late st Contact Info) Description 03/30/2017 Telephone [facility] General Surgery [address] [facility] [address] [place] [address] Shira Meyers NP Unna Boot Application Social [...] week on schedule0 Please call to advise [phone] documented in this encounter Plan of Treatment Not on file documented as of this encounter Visit Diagnoses Not on filedocumented in this encounter Care Teams Java Developer Architect Relationship Specialty Start Date End Date Damion Maynard MD PCP - General Family Medicine 05/20/16 12/21/17 Destiny Trinidad MD [facility] [address] [place] [address] PCP - General Family Medicine 12/22/17 documented as of this encounter
--- OUTSIDE RECORDS SUMMARY | 2024-12-20 16:55 | XMS_ITS | Encounter Summary ---
Author Organization [facility] Address [address] [place] [address] Care Team Providers Care Independent Living Advisor Name Role Phone Destiny Trinidad MD Primary Care Provider [phone] Steven Ch MD Unavailable [phone] Encounter Details Date Type Department Care Team (Late st Contact Info) Description 09/24/2021 Prep for Surgery [facility] [address] [place] [phone] Nav Smimons PA-C [address] [place] [id number] Preop examination (Primary Dx) Social History Tobacco [...] examination documented in this encounter Care Teams Independent Living Advisor Relationship Specialty Start Date End Date Destiny Trinidad MD [address] [address] PCP - General 09/25/21 Steven Ch MD [address] [place] [address] Drive [address] [place] [address] Electronic Musical Instrument Repairer Cardiovascular Disease 09/25/21 documented as of this encounter
== END 2024-12-20 14:41 | disposition home or self-care (01) ==
PROVIDERS: PCP Family Medicine; Visit Provider Urology
DX: E66.01 Morbid (severe) obesity due to excess calories (principal); R35.0 Frequency of micturition; N39.41 Urge incontinence; N20.0 Calculus of kidney
CPT/HCPCS: 99214

== ENCOUNTER → 2024-12-20 14:03 | Outpatient (BNVA) | payer MEDICARE, MEDICAID, SELFPAY | PROVIDERS: PCP Family Medicine; Visit Provider Urology | DX: N39.41 Urge incontinence (principal); E66.01 Morbid (severe) obesity due to excess calories; R35.0 Frequency of micturition; N20.0 Calculus of kidney | CPT/HCPCS: 51798; 99212 ==

== ENCOUNTER 2025-01-12 09:39 | Outpatient (AMB) | payer MEDICARE, MEDICAID, SELFPAY ==
--- NOTE | 2025-01-12 09:50 | A.OFFVIS_ITS ---
Vital Signs 01/12/25 09:51 Height 5 ft 9 in Weight 361 lb 8.929 oz BMI 53.4 BP 158/84 H Blood Pressure Location Lt brachial Position Sitting Pulse 65 Intake Visit Reasons: 4 mth f/up r/s Frozen Meat Cutter Required: No Accompanied by: Son Allergies cefaclor [From Ceclor] Allergy (Severe, Verified 12/20/24 14:07) hives epanolol Allergy (Severe, Verified 12/20/24 14:07) hives misoprostol Allergy (Severe, Verified 12/20/24 14:07) rash NSAIDS (Non-Steroidal Anti-Inflamma Allergy (Severe, Verified 12/20/24 14:07) GI upset Penicillins Allergy (Severe, Verified 12/20/24 14:07) hives, rash, itching Sulfa (Sulfonamide Antibiotics) Allergy (Severe, Verified 12/20/24 14:07) Hives Cephalosporins Allergy (Intermediate, Verified 12/20/24 14:07) hives amoxicillin Allergy (Mild, Verified 12/20/24 14:07) rash vancomycin Allergy (Mild, Verified 12/20/24 14:07) itching clindamycin Adverse Reaction (Intermediate, Verified 12/20/24 14:07) Rash Medication List - Last Reconciled 01/12/25 by MARIAM Chacon apixaban 5 mg PO BID Bifidobacterium infantis (Align (B.infantis)) 4 mg PO DAILY budesonide DR-ER 9 mg (3 x 3 mg) PO DAILY calcium carbonate-vitamin D3 600 mg-10 mcg (400 unit) 1 tab PO DAILY colesevelam 1,250 mg (2 x 625 mg) PO BID dapagliflozin propanediol (Farxiga) 5 mg PO DAILY diphenoxylate-atropine 2.5-0.025 mg/5 mL 5 mL PO QID PRN duloxetine 20 mg PO DAILY esomeprazole magnesium 40 mg PO DAILY ferrous sulfate 1 tab PO DAILY gabapentin 300 mg PO TID onmkxr-alaxbvyx-nyxivrp 24,000-76,000 -120,000 unit (Creon) 2 caps PO BID lorazepam 1 mg PO BEDTIME PRN montelukast 10 mg PO BEDTIME multivitamin with folic acid 400 mcg (Daily-Brent (with folic acid)) 1 tab PO DAILY nystatin topical BID oxybutynin chloride ER 15 mg PO DAILY oxycodone 5 mg PO Q6H PRN prednisolone acetate 1% drps ophthalmic (eye) rifaximin 550 mg PO TID 2 weeks semaglutide (weight loss) (Wegovy) 0.25 mg subcut QWEEK sertraline 100 mg PO DAILY simethicone (Gas Relief (simethicone)) 125 mg PO BID-QID PRN sotalol 120 mg PO BID sucralfate 10 mL PO BID PRN tamsulosin 0.4 mg PO DAILY vibegron (Gemtesa) 75 mg PO DAILY zolpidem 10 mg PO BEDTIME HPI HPI 4 mth f/up r/s: Details: Jan is a 59-year-old male with past medical history of morbid obesity, history of gastric bypass, hypertension, 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 Today he reports that he has noticed at least 4 episodes of heart palpitations since his last visit in August. He believes that he can tell when he has atrial fibrillation as his heartbeats fast and irregular. He has used a oxygen saturation monitor and showed his heart rate to be as high as 180 beats per minute. His longest episode of palpitations lasted 30 minutes before resolving. He reports compliance with all his meds. No chest discomfort at rest or with activity. He does have some shortness of breath with exertion which not new. No lightheadedness, presyncope, syncope, falls. He is ambulating with a cane today. He is using CPAP mask. Family member present. [facility] Medical History Nocturnal hypoxemia Somnolence, daytime Loud snoring SHAYLA (obstructive sleep apnea) Paroxysmal A-fib Atrial flutter PAF (paroxysmal atrial fibrillation) On beta paty at home On anticoagulant therapy SHAYLA on CPAP Bronchial asthma Restrictive lung disease Migration of vascular stent Pulmonary embolus Family history of stent Uncomplicated opioid dependence Lymphedema Lumbar disc disease Venous stasis Hyperlipidemia Neurogenic bladder Dyspnea Lumbar disc prolapse with root compression History of kidney stones GERD (gastroesophageal reflux disease) OA (osteoarthritis) Morbid obesity Asthma Depression Essential hypertension Surgical History Hx of cervical spine surgery S/P IVC filter S/P appendectomy Hx of colonoscopy History of esophagogastroduodenoscopy (EGD) Hx of eye surgery Hx of gastric bypass Family History Mother Diabetes Father Brain cancer Sister Diabetes Sister Diabetes Sister Diabetes Brother Blind Brother No problems noted. Brother No problems noted. Brother No problems noted. Brother No problems noted. Daughter No problems noted. Daughter Mental health disorder Son Mental health disorder Son No problems noted. Son No problems noted. Social History Household Members: Children Household Members Other:: - 5 kids Housing: House Are you a primary resident care coordinator to a significant other at home: No Do you presently have visiting nurse or other home services: Yes ([employer] that visits every 3 months) Alcohol intake: former Year quit: 1979 Comment: uses cane at times- knee gives out Patient Tobacco Use Status: Never used Tobacco Second Hand Smoke Exposure: No Advance Directives Date on File: 08/14/21 service: No Current occupational status: disabled Current occupation: rt handed Review of Systems Const All systems reviewed & are unremarkable except as noted in HPI and below Denies chills, Denies fatigue, Denies fever(s), Denies weight gain and Reports weight loss ENT Denies dizziness Card Details: palpitations - he believes to be AF Denies chest pain, Reports rapid heart rate, Denies leg edema, Denies lightheadedness, Denies palpitations, Reports dyspnea on exertion, Denies orthopnea and Denies other Resp Denies cough and Reports dyspnea on exertion GI Denies hematochezia and Denies change in stool character Musc Reports abnormal gait (uses cane), Denies muscle weakness, Denies numbness, Denies radiating pain into limb and Denies tingling Neuro Reports abnormal gait (uses cane), Denies dizziness, Denies numbness and Denies tingling Endo Denies fatigue and Denies palpitations Physical Exam Vital Signs: Last Vital Signs Pulse 65 01/12/25 09:51 BP 158/84 H 01/12/25 09:51 BMI result Body Mass Index 53.4 Const Other: morbidly obese, ambulates slowly with cane General: cooperative, comfortable and no acute distress Orientation/consciousness: patient oriented x3 Neck Neck: Yes normal visual inspection Resp Effort & Inspection: normal respiratory effort Auscultation: clear to auscultation bilaterally, no rales, no rhonchi and no wheezes Cardio Rate: regular rate Rhythm: regular rhythm Heart sounds: S1 normal heart sound present, S2 normal heart sound present, no murmurs and no rubs Neuro General: patient oriented x3 Extrem Other: tight, chronically discolored skin to lower extremities, no pitting edema Psych Appearance: grossly normal Mental Status: mental status grossly normal Speech and movement: Normal speech and movement present Office Procedures EKG Details: Today, read by me, Sinus rhythm, Incomplete RBBB, rate 65, Qtc 447ms [id number], Complete Assessment & Plan Assessment & Plan (1) PAF (paroxysmal atrial fibrillation): Comment: Eliquis and Sotalol Code(s): I48.0 - Paroxysmal atrial fibrillation Category: Medical Plan: History of paroxysmal atrial fibrillation that is treated with rhythm control. He is currently on sotalol. EKG done today shows normal sinus rhythm, incomplete right bundle branch block, rate 65, QTC 447 milliseconds. He reports 4 episodes of palpitations since August, longest 30 minutes. He believes this to be paroxysmal AFib. Will order a cardiac event monitor to further evaluate. Continue Eliquis for anticoagulation. Continue sotalol. Will reach out to his PCP office for most recent lab work. Cardiology office visit in 3-4 months, sooner if needed. (2) Diastolic heart failure: Code(s): I50.30 - Unspecified diastolic (congestive) heart failure Category: Medical Plan: History of diastolic heart failure with prior admission. Last echo at time of [facility] admission 02/24/2024 showed EF 55-60%, flattened intraventricular septum consistent with RV fluid overload. He was diuresed at that time but not sent home on daily diuretics. At this time he does not have signs of fluid overload though his morbid obesity makes this more challenging. Suggested low-dose diuretic and he declines. He tells me he has incontinence and diuretics make this problem worse for him. Signs and symptoms of heart failure reviewed with him. Continue to work on weight loss, increase physical activity as tolerated. (3) SHAYLA on CPAP: Code(s): G47.33 - Obstructive sleep apnea (adult) (pediatric); Z99.89 - Dependence on other enabling machines and devices Category: Medical Plan: Follows with pulmonology. He uses CPAP. (4) Restrictive lung disease: Comment: EXPECTED FROM HIS SUPER MORBID OBESITY HE DEFINITELY HAS RESTRICTIVE PULMONARY DISORDER. Code(s): J98.4 - Other disorders of lung Category: Medical Plan: Related to his morbid obesity (5) Current use of halfway anticoagulation: Code(s): Z79.01 - nursing home (current) use of anticoagulants Category: Medical Plan: On Eliquis (6) Morbid obesity: Code(s): E66.01 - Morbid (severe) obesity due to excess calories Category: Medical Plan: Chronic. History of gastric bypass. Mostly sedentary at this point. Currently on semaglutide and has lost some weight. Plan Time spent on chart review, documentation, interview and assessment Orders: Orders ECG 30 day event monitor Today I48.0 - Paroxysmal atrial fibrillation Coding Level of Care Code Est Pt Level 4 (07178) Complex EM visit Add On G2211 Diagnoses PAF (paroxysmal atrial fibrillation) I48.0 Diastolic heart failure I50.30 SHAYLA on CPAP G47.33; Z99.89 Restrictive lung disease J98.4 Current use of halfway anticoagulation Z79.01 Morbid obesity E66.01 CPT Codes EKG - CPT: 83284-Iuvacjhjakygccpth, Complete ([id number]) Time Spent (min) 32
[2025-01-12 09:51] VITALS: BP 158/84; PULSE 65; BMI 53.4
== END 2025-01-12 10:18 | disposition home or self-care (01) ==
LOC: HO.HCS 09:39
PROVIDERS: PCP Family Medicine; Visit Provider Nurse Practitioner Family
DX: I48.0 Paroxysmal atrial fibrillation (principal); I50.30 Unspecified diastolic (congestive) heart failure; G47.33 Obstructive sleep apnea (adult) (pediatric); Z99.89 Dependence on other enabling machines and devices; J98.4 Other disorders of lung; Z79.01 Long term (current) use of anticoagulants; E66.01 Morbid (severe) obesity due to excess calories
CPT/HCPCS: 93010; 99214; G2211

== ENCOUNTER → 2025-01-12 09:39 | Outpatient (BNVA) | payer MEDICARE, MEDICAID, SELFPAY | PROVIDERS: PCP Family Medicine; Visit Provider Nurse Practitioner Family | DX: I50.30 Unspecified diastolic (congestive) heart failure (principal); I48.0 Paroxysmal atrial fibrillation; J98.4 Other disorders of lung; G47.33 Obstructive sleep apnea (adult) (pediatric); E66.01 Morbid (severe) obesity due to excess calories; Z79.01 Long term (current) use of anticoagulants; Z99.89 Dependence on other enabling machines and devices; Z68.43 Body mass index [BMI] 50.0-59.9, adult | CPT/HCPCS: 93005; 99212 ==

== ENCOUNTER → 2025-01-18 10:20 | Outpatient (REF) | payer MEDICARE, MEDICAID, SELFPAY ==
--- OUTSIDE RECORDS SUMMARY | 2025-01-18 11:14 | XMS_ITS | Clinical Summary ---
Author Organization [facility] Address [address] [place] [address] Care Team Providers Care Amusement Ride Inspector Name Role Phone Destiny Trinidad MD Primary Care Provider [phone] Steven Ch MD Unavailable [phone] Allergies Active Allergy Reactions Criticality Noted [...] (three) times a day. Active nystatin (MYCOSTATIN) 841840 UNIT/GM cream Apply topically 2 (two) times [...] Dates Next Due Covid-19 MRNA Vaccine - The Whistle 12+ (Purple Cap) 10/13/2021 Family History Medical [...] age to complete this topic Care Teams Amusement Ride Inspector Relationship Specialty Start Date End Date Destiny Trinidad MD [address] [address] PCP - General 09/25/21 Steven Ch MD [address] [place] [address] Drive [address] [place] [address] Finisher Denture Cardiovascular Disease 09/25/21
--- OUTSIDE RECORDS SUMMARY | 2025-01-18 11:14 | XMS_ITS | Encounter Summary ---
Author Organization [facility] Address [address] [place] [address] Care Team Providers Care Certified Phlebotomist Name Role Phone Destiny Trinidad MD Primary Care Provider [phone] Steven Ch MD Unavailable [phone] Encounter Details Date Type Department Care Team (Late st Contact Info) Description 09/24/2021 Prep for Surgery [facility] [address] [place] [address] [phone] Nav Simmons PA-C [address] [place] [id number] Preop examination (Primary Dx) Social History Tobacco [...] examination documented in this encounter Care Teams Certified Phlebotomist Relationship Specialty Start Date End Date Destiny Trinidad MD [address] [address] PCP - General 09/25/21 Steven Ch MD [address] [place] [address] Drive [address] [place] [address] River Expedition Guide Cardiovascular Disease 09/25/21 documented as of this encounter
--- OUTSIDE RECORDS SUMMARY | 2025-01-18 11:14 | XMS_ITS | Encounter Summary ---
Author Organization [facility] Address [address] [place] [address] Care Team Providers Care Senior Python Developer Name Role Phone Damion Maynard MD Primary Care Provider U Destiny Dewey MD Primary Care Provider [phone] Encounter Details Date Type Department Care Team (Late st Contact Info) Description 08/19/2016 Telephone [facility] General Vascular Surgery [address] [facility] [address] [place] [id number] Shira Meyers NP Social History Tobacco Use [...] on filedocumented in this encounter Care Teams Senior Python Developer Relationship Specialty Start Date End Date Damion Maynard MD PCP - General Family Medicine 05/20/16 12/21/17 Destiny Trinidad MD [facility] [address] [place] [address] PCP - General Family Medicine 12/22/17 documented as of this encounter
--- OUTSIDE RECORDS SUMMARY | 2025-01-18 11:14 | XMS_ITS | Encounter Summary ---
Author Organization [facility] Address [address] [place] [address] Care Team Providers Care Customer Field Representative Name Role Phone Damion Maynard MD Primary Care Provider U Destiny Dewey MD Primary Care Provider [phone] Reason for Visit * Reason Comments Unna Boot Application Encounter Details Date Type Department Care Team (Late st Contact Info) Description 03/30/2017 Telephone [facility] General Surgery [address] [facility] [address] [place] [address] Shira Meyers NP Unna Boot Application Social [...] week on schedule0 Please call to advise [phone] documented in this encounter Plan of Treatment Not on file documented as of this encounter Visit Diagnoses Not on filedocumented in this encounter Care Teams Customer Field Representative Relationship Specialty Start Date End Date Damion Maynard MD PCP - General Family Medicine 05/20/16 12/21/17 Destiny Trinidad MD [facility] [address] [place] [address] PCP - General Family Medicine 12/22/17 documented as of this encounter
--- OUTSIDE RECORDS SUMMARY | 2025-01-18 11:14 | XMS_ITS | Encounter Summary ---
Author Organization [facility] Address [address] [place] [address] Care Team Providers Care Variety Performer Name Role Phone Damion Maynard MD Primary Care Provider U Destiny Dewey MD Primary Care Provider [phone] Reason for Visit * Reason Comments Appointment tomorrow Unna Boot Application Encounter Details Date Type Department Care Team (Late st Contact Info) Description 02/16/2017 Telephone [facility] General Vascular Surgery [address] [facility] [address] [place] [address] Shira Myeers NP Appointment (tomorrow); Unna Boot Application Social [...] he is seeing a doctor at the [facility] in [place] at 10:30 - a Dr. Zelaya-who is going to want to talk to Shira Meyers about his situation. So patient is asking to be seen in time tomorrow to get to his 10 30 appointment in [place] He will be cancelling his other [place] appointment with Podiatry at 8:30. Please advise [phone] documented in this encounter Plan of Treatment Not on file documented as of this encounter Visit Diagnoses Not on filedocumented in this encounter Care Teams Variety Performer Relationship Specialty Start Date End Date Damion Maynard MD PCP - General Family Medicine 05/20/16 12/21/17 Destiny Trinidad MD [facility] [address] [place] [address] PCP - General Family Medicine 12/22/17 documented as of this encounter
--- OUTSIDE RECORDS SUMMARY | 2025-01-18 11:15 | XMS_ITS | Continuity of Care Document ---
Author Organization [facility] Address [address] [place] [address] Care Team Providers Care Relationship Counselor Name Role Phone Destiny Trinidad MD Primary Care Provider [phone] Encounters Date Type Department Care Team Description 03/05/2021 Travel 03/05/2021 11:15 AM EDT Office Visit [facility] [address] [place] [address] Stacey Barber NP Chronic ulcer of right leg, limited to breakdown of skin (Primary Dx) 02/25/2021 Travel 02/25/2021 11:20 AM EDT Office Visit [facility] [address] [place] [phone] Stacey Barber NP Chronic ulcer of right leg, limited to breakdown of skin (Primary Dx) 02/17/2021 Travel 02/17/2021 11:45 AM EDT Office Visit [facility] [address] [place] [phone] Stacey Barber NP Chronic ulcer of right leg, limited to breakdown of skin (Primary Dx) 02/11/2021 Travel 02/11/2021 12:30 PM EDT Office Visit [facility] [address] [place] [address] Stacey Barber NP Chronic ulcer of right leg, limited to breakdown of skin (Primary Dx) 02/04/2021 Travel 02/04/2021 10:45 AM EDT Office Visit [facility] [address] [place] [address] Stacey Barber NP Chronic ulcer of right leg, limited to breakdown of skin (Primary Dx) 01/29/2021 Travel 01/29/2021 9:00 AM EDT Office Visit [facility] [address] [place] [phone] Stacey Barber NP Chronic ulcer of right leg, limited to breakdown of skin (Primary Dx) 01/21/2021 Travel 01/21/2021 1:00 PM EDT Office Visit [facility] [address] [place] [address] Stacey Barber NP Chronic ulcer of right leg, limited to breakdown of skin (Primary Dx) 01/14/2021 Travel 01/14/2021 1:00 PM EDT Office Visit [facility] [address] [place] [address] Stacey Barber NP Chronic ulcer of right leg, limited to breakdown of skin (Primary Dx) 01/08/2021 11:15 AM EDT Office Visit [facility] [address] [place] [address] Stacey Barber NP Chronic ulcer of left leg, limited to breakdown of skin (Primary Dx) 01/03/2021 Travel 01/03/2021 11:00 AM EDT Office Visit [facility] [address] [place] [phone] Shira Meyers NP Ulcer of right lower extremity, unspecified ulcer stage (Primary Dx); Lymphedema; Encounter for change or removal of nonsurgical wound dressing 12/24/2020 Travel 12/24/2020 1:00 PM EST Office Visit [facility] [address] [facility] [address] [place] [address] Stacey Barber NP Chronic ulcer of lower extremity, right, with unspecified severity (Primary Dx) 12/10/2020 Travel 12/10/2020 1:15 PM EST Office Visit [facility] [address] [facility] [address] [place] [address] Stacey Barber NP Ulcer of right lower extremity, unspecified ulcer stage (Primary Dx) 12/05/2020 Travel 12/05/2020 1:00 PM EST Office Visit [facility] [address] [facility] [address] [place] [address] Joshua Hendrix MD Chronic ulcer of lower extremity, right, with unspecified severity (Primary Dx) 11/21/2020 Travel 11/21/2020 1:00 PM EST Office Visit [facility] [address] [facility] [address] [place] [address] Stacey Barber NP Chronic ulcer of lower extremity, right, with unspecified severity (Primary Dx); Venous stasis of lower extremity 11/12/2020 Travel 11/12/2020 1:00 PM EST Office Visit [facility] [address] [facility] [address] [place] [address] Stacey Barber NP Ulcer of right lower extremity, unspecified ulcer stage (Primary Dx) 10/29/2020 Travel 10/29/2020 2:40 PM EST Office Visit [facility] [address] [facility] [address] [place] [address] Shira Meyers NP Ulcer of right lower extremity, unspecified ulcer stage (Primary Dx); Lymphedema 03/04/2020 Telephone [facility] [address] [facility] [address] [place] [address] Shira Meyers NP No Show 03/04/2020 Telephone [facility] [address] [facility] [address] [place] [address] St Onge, Shira, SWATCHER Equipment/supplies 01/05/2020 9:20 AM EDT Office Visit [facility] [address] [facility] [address] [place] [address] St Onge, Shira, SWATCHER Ulcer of right lower extremity, unspecified ulcer stage (Primary Dx); Lymphedema 12/29/2019 Travel 12/29/2019 9:40 AM EDT Office Visit [facility] [address] [facility] [address] [place] [address] [address] Onge, Shira, SWATCHER Ulcer of right lower extremity, unspecified ulcer stage (Primary Dx); Ulcer of left lower extremity, unspecified ulcer stage 12/22/2019 9:20 AM EST Nurse Visit [facility] [address] [facility] [address] [place] [address] Shashank Shetty LPN Edema, unspecified type (Primary Dx); Encounter for change or removal of nonsurgical wound dressing 12/15/2019 8:40 AM EST Office Visit [facility] [address] [place] [address] [address] [place] [address] St Onge, Shira, SWATCHER Ulcer of right lower extremity, unspecified ulcer stage (Primary Dx); Ulcer of left lower extremity, unspecified ulcer stage; Lymphedema of both lower extremities 12/06/2019 9:00 AM EST Office Visit [facility] [address] [address] St Onge, Shira, SWATCHER Ulcer of right lower extremity, unspecified ulcer stage (Primary Dx); Ulcer of left lower extremity, unspecified ulcer stage; Lymphedema of both lower extremities 11/29/2019 8:40 AM EST Office Visit [facility] [address] [facility] [address] [place] [address] [address] Onge, Shira, SWATCHER Ulcer of right lower extremity, unspecified ulcer stage (Primary Dx); Ulcer of left lower extremity, unspecified ulcer stage; Lymphedema of both lower extremities 11/22/2019 8:40 AM EST Office Visit [facility] [address] [facility] [address] [place] [address] St Onge, Shira, SWATCHER Ulcer of right lower extremity, unspecified ulcer stage (Primary Dx); Ulcer of left lower extremity, unspecified ulcer stage; Lymphedema of both lower extremities 11/15/2019 8:40 AM EST Office Visit [facility] [address] [facility] [address] [place] [address] St Onge, Shira, SWATCHER Ulcer of right lower extremity, unspecified ulcer stage (Primary Dx); Ulcer of left lower extremity, unspecified ulcer stage; Lymphedema of both lower extremities 11/08/2019 8:40 AM EST Office Visit [facility] [address] [facility] [address] [place] [address] St Onge, Shira, SWATCHER Ulcer of right lower extremity, unspecified ulcer stage (Primary Dx); Ulcer of left lower extremity, unspecified ulcer stage 11/01/2019 8:00 AM EST Office Visit [facility] [address] [address] St Onge, Shira, SWATCHER Ulcer of right lower extremity, unspecified ulcer stage (Primary Dx) 10/27/2019 8:40 AM EST Office Visit [facility] [address] [facility] [address] [place] [address] St Onge, Shira, SWATCHER Ulcer of right lower extremity, unspecified ulcer stage (Primary Dx); Lymphedema of both lower extremities 10/20/2019 2:00 PM EST Nurse Visit [facility] [address] [address] Orville Gandhi LPN Edema, unspecified type (Primary Dx); Encounter for change or removal of nonsurgical wound dressing 10/12/2019 10:00 AM EST Office Visit [facility] [address] [facility] [address] [place] [address] Joshua Hendrix MD Venous stasis of lower extremity (Primary Dx) 10/06/2019 11:00 AM EST Office Visit [facility] [address] [facility] [address] [place] [address] St Onge, Shira, SWATCHER Ulcer of right lower extremity, unspecified ulcer stage (Primary Dx) 10/04/2019 Telephone [facility] [address] [facility] [address] [place] [address] Joshua Hendrix MD Post Op (wound care) 09/29/2019 Surgery/Major Procedure [facility] [address] [place] [address] Joshua Hendrix MD 09/19/2019 2:20 PM EST Office Visit [facility] [address] [place] [address] [address] [place] [address] [address] Onge, Shira, SWATCHER Ulcer of right lower extremity, unspecified ulcer stage (Primary Dx); Lymphedema of both lower extremities 09/07/2019 Pre-Op FAM PRAC UNSPECIFIED Provider, Unknown 09/05/2019 10:00 AM EST Consult (Initial) [facility] [address] [address] Joshua Hendrix MD Venous stasis of lower extremity (Primary Dx) 08/30/2019 9:20 AM EST Office Visit [facility] [address] [facility] [address] [place] [address] St Onge, Shira, SWATCHER Ulcer of right lower extremity, unspecified ulcer stage (Primary Dx); Lymphedema of both lower extremities 08/23/2019 9:20 AM EST Office Visit [facility] [address] [address] St Onge, Shira, SWATCHER Ulcer of right lower extremity, unspecified ulcer stage (Primary Dx); Lymphedema of both lower extremities 08/16/2019 9:20 AM EDT Office Visit [facility] [address] [facility] [address] [place] [address] St Onge, Shira, SWATCHER Ulcer of right lower extremity, unspecified ulcer stage (Primary Dx); Lymphedema of both lower extremities 08/09/2019 8:40 AM EDT Office Visit [facility] [address] [facility] [address] [place] [address] [address] Onge, Shira, SWATCHER Ulcer of right lower extremity, unspecified ulcer stage (Primary Dx); Lymphedema of both lower extremities 08/02/2019 9:20 AM EDT Office Visit [facility] [address] [facility] [address] [place] [address] St Onge, Shira, SWATCHER Ulcer of right lower extremity, unspecified ulcer stage (Primary Dx); Lymphedema of both lower extremities 07/25/2019 9:00 AM EDT Office Visit [facility] [address] [facility] [address] [place] [address] Nav Staples MD Varicose veins of left lower extremity with pain (Primary Dx); Venous stasis ulcer of calf with bone involvement without evidence of necrosis with varicose veins, unspecified laterality; Varicose veins of right lower extremity with ulcer of calf with fat layer exposed 07/20/2019 9:00 AM EDT Nurse Visit [facility] [address] [facility] [address] [place] [address] Orville Gandhi LPN Edema, unspecified type (Primary Dx); Encounter for change or removal of nonsurgical wound dressing 07/14/2019 9:20 AM EDT Nurse Visit [facility] [address] [facility] [address] [place] [address] Shashank Shetty LPN Edema, unspecified type (Primary Dx); Encounter for change or removal of nonsurgical wound dressing 07/07/2019 9:40 AM EDT Office Visit [facility] [address] [facility] [address] [place] [address] [address] Onge, Shira, SWATCHER Ulcer of right lower extremity, unspecified ulcer stage (Primary Dx); Lymphedema of both lower extremities 07/04/2019 9:00 AM EDT Office Visit [facility] [address] [facility] [address] [place] [address] Shira Meyers NP Ulcer of right lower extremity, unspecified ulcer stage (Primary Dx); Lymphedema of both lower extremities 06/27/2019 Telephone [facility] [address] [facility] [address] [place] [address] Shira Meyers NP Discussion With Provider; Wound Care 04/17/2019 9:20 AM EDT Nurse Visit [facility] [address] [facility] [address] [place] [address] Lymphedema (Primary Dx) 04/10/2019 9:20 AM EDT Office Visit [facility] [address] [facility] [address] [place] [address] Nolvia Elkins NP Lymphedema of both lower extremities (Primary Dx); Ulcer of right lower extremity, unspecified ulcer stage 04/05/2019 8:30 AM EDT Office Visit [facility] [address] [facility] [address] [place] [address] Theo Martinez MD Lymphedema of both lower extremities (Primary Dx); Venous ulcer 03/29/2019 9:15 AM EDT Office Visit [facility] [address] [place] [phone] Nav Amato MD Trigger finger, right ring finger (Primary Dx) 03/21/2019 10:45 AM EDT Office Visit [facility] [address] [place] [phone] Renae Turner PA S/P trigger finger release (Primary Dx); Tenosynovitis of finger 11/18/2018 8:00 AM EST Office Visit [facility] [address] [place] [phone] Jeffery Manuel NP Trigger ring finger of left hand (Primary Dx) 11/08/2018 8:00 AM EST Minor Procedure/Test [facility] [address] [place] [phone] Nav Amato MD Trigger ring finger of left hand (Primary Dx) 10/10/2018 9:15 AM EST Office Visit [facility] [address] [place] [phone] Renae Turner PA S/P trigger finger release (Primary Dx); Visit for suture removal; Trigger finger, left ring finger 09/27/2018 9:00 AM EST Minor Procedure/Test [facility] [address] [place] [phone] Nav Amato MD Trigger finger, right ring finger (Primary Dx) 09/19/2018 3:45 PM EST Consult (Initial) [facility] [address] [place] [phone] Ivan Rueda MD Lumbar facet arthropathy (Primary Dx); Spinal stenosis of lumbar region with neurogenic claudication 08/29/2018 4:00 PM EST Consult (Initial) [facility] [address] [place] [phone] Renae Turner PA Trigger finger, right ring finger (Primary Dx) 08/15/2018 11:00 AM EDT Consult (Initial) [facility] [address] [place] [phone] Savage Jara MD Spinal stenosis of lumbar region with neurogenic claudication (Primary Dx); Facet arthritis of lumbar region (HCC); Foraminal stenosis of lumbar region; Low back pain of over 3 months duration; Lumbosacral stenosis with neurogenic claudication (HCC); BMI 50.0-59.9, adult 06/01/2018 9:40 AM EDT Office Visit [facility] [address] [facility] [address] [place] [address] [address] Onge, Shira, SWATCHER Lymphedema of both lower extremities (Primary Dx); Ulcers of both lower legs, limited to breakdown of skin 05/25/2018 9:40 AM EDT Office Visit [facility] [address] [facility] [address] [place] [address] [address] Onge, Shira, SWATCHER Ulcer of left lower extremity, unspecified ulcer stage (Primary Dx); Lymphedema of both lower extremities 05/18/2018 9:00 AM EDT Nurse Visit [facility] [address] [place] [address] Shetty, Shashank, MEDICAL CARE EVALUATION SPECIALIST Edema, unspecified type (Primary Dx); Encounter for change or removal of nonsurgical wound dressing 05/11/2018 9:00 AM EDT Office Visit [facility] [address] [place] [address] [address] [place] [address] St Onge, Shira, SWATCHER Lymphedema of both lower extremities (Primary Dx); Ulcers of both lower legs, limited to breakdown of skin 05/04/2018 9:00 AM EDT Nurse Visit [facility] [address] [place] [address] Gandhi, Orville, MEDICAL CARE EVALUATION SPECIALIST Edema, unspecified type (Primary Dx); Encounter for change or removal of nonsurgical wound dressing 04/27/2018 9:40 AM EDT Nurse Visit [facility] [address] [place] [address] Shetty, Shashank, MEDICAL CARE EVALUATION SPECIALIST Edema, unspecified type (Primary Dx); Encounter for change or removal of nonsurgical wound dressing 04/13/2018 9:00 AM EDT Office Visit [facility] [address] [place] [address] St Onge, Shira, SWATCHER Ulcers of both lower legs, limited to breakdown of skin (Primary Dx); Lymphedema of both lower extremities 04/13/2018 11:40 AM EDT Minor Procedure/Test [facility] [address] [place] [address] Roger Johnson DPM Atherosclerosis of telida artery of both lower extremities, with unspecified presence of clinical manifestation (Primary Dx); Onychomycosis; Pain of toes of both feet 04/06/2018 9:40 AM EDT Office Visit [facility] [address] [address] Shira Meyers, AZRA Lymphedema of both lower extremities (Primary Dx); Ulcers of both lower legs, limited to breakdown of skin 03/30/2018 9:00 AM EDT Nurse Visit [facility] [address] [place] [address] Shetty, Shashank, MEDICAL CARE EVALUATION SPECIALIST Edema, unspecified type (Primary Dx); Encounter for change or removal of nonsurgical wound dressing 03/23/2018 9:00 AM EDT Nurse Visit [facility] [address] [place] [address] Shetty, Shashank, MEDICAL CARE EVALUATION SPECIALIST Edema, unspecified type (Primary Dx); Encounter for change or removal of nonsurgical wound dressing 03/16/2018 9:00 AM EDT Nurse Visit [facility] [address] [place] [address] Shetty, Shashank, MEDICAL CARE EVALUATION SPECIALIST Edema, unspecified type (Primary Dx); Encounter for change or removal of nonsurgical wound dressing 03/02/2018 9:00 AM EDT Nurse Visit [facility] [address] [place] [address] Gandhi, Orville, MEDICAL CARE EVALUATION SPECIALIST Edema, unspecified type (Primary Dx); Encounter for change or removal of nonsurgical wound dressing 02/23/2018 9:20 AM EDT Nurse Visit [facility] [address] [place] [address] St Onge, Shira, SWATCHER Ulcers of both lower legs, limited to breakdown of skin (Primary Dx); Lymphedema 02/18/2018 10:20 AM EDT Office Visit [facility] [address] [place] [address] [address] [place] [address] [address] Onge, Shira, SWATCHER Ulcers of both lower legs, limited to breakdown of skin (Primary Dx); Lymphedema 01/19/2018 9:30 AM EDT Nurse Visit [facility] [address] [place] [address] Gandhi, Orville, MEDICAL CARE EVALUATION SPECIALIST Edema, unspecified type (Primary Dx); Encounter for change or removal of nonsurgical wound dressing 01/12/2018 9:00 AM EDT Office Visit [facility] [address] [place] [address] St Onge, Shira, SWATCHER Ulcers of both lower legs, limited to breakdown of skin (Primary Dx); Lymphedema of both lower extremities 01/05/2018 9:00 AM EDT Office Visit [facility] [address] [place] [address] St Onge, Shira, SWATCHER Ulcers of both lower legs, limited to breakdown of skin (Primary Dx); Lymphedema 12/31/2017 11:20 AM EDT Nurse Visit [facility] [address] [place] [address] Edema, unspecified type (Primary Dx); Encounter for change or removal of nonsurgical wound dressing 12/22/2017 9:00 AM EST Office Visit [facility] [address] [place] [address] St Onge, Shira, SWATCHER Ulcers of both lower legs, limited to breakdown of skin (Primary Dx); Lymphedema 2017 8:20 AM EST Office Visit [facility] [address] [place] [address] St Onge, Shira, SWATCHER Ulcers of both lower legs, limited to breakdown of skin (Primary Dx); Lymphedema 12/08/2017 9:00 AM EST Office Visit [facility] [address] [facility] [address] [place] [address] St Onge, Shira, SWATCHER Ulcers of both lower legs, limited to breakdown of skin (Primary Dx); Lymphedema 12/01/2017 9:00 AM EST Nurse Visit [facility] [address] [facility] [address] [place] [address] Larosee, Jolene, MEDICAL CARE EVALUATION SPECIALIST Edema, unspecified type (Primary Dx); Encounter for change or removal of nonsurgical wound dressing 11/24/2017 9:00 AM EST Nurse Visit [facility] [address] [place] [address] Charly Gandhia, MEDICAL CARE EVALUATION SPECIALIST Edema, unspecified type (Primary Dx); Encounter for change or removal of nonsurgical wound dressing 11/17/2017 9:00 AM EST Nurse Visit [facility] [address] [address] Gandhi, Orvlile, MEDICAL CARE EVALUATION SPECIALIST Edema, unspecified type (Primary Dx); Encounter for change or removal of nonsurgical wound dressing 11/10/2017 9:00 AM EST Nurse Visit [facility] [address] [address] Gandhi Orville, MEDICAL CARE EVALUATION SPECIALIST Edema, unspecified type (Primary Dx); Encounter for change or removal of nonsurgical wound dressing 11/02/2017 9:00 AM EST Nurse Visit [facility] [address] [address] Dov Gandhiyla, MEDICAL CARE EVALUATION SPECIALIST Edema, unspecified type (Primary Dx); Encounter for change or removal of nonsurgical wound dressing 10/27/2017 10:40 AM EST Office Visit [facility] [address] [address] St Onge, Shira, SWATCHER Ulcers of both lower legs, limited to breakdown of skin (Primary Dx); Lymphedema 10/22/2017 1:00 PM EST Nurse Visit [facility] [address] [facility] [address] [place] [address] Orville Gandhi, MEDICAL CARE EVALUATION SPECIALIST Edema, unspecified type (Primary Dx); Encounter for change or removal of nonsurgical wound dressing 10/19/2017 9:00 AM EST Nurse Visit [facility] [address] [facility] [address] [place] [address] VerneJolene, MEDICAL CARE EVALUATION SPECIALIST Edema, unspecified type (Primary Dx); Encounter for change or removal of nonsurgical wound dressing 10/15/2017 9:00 AM EST Nurse Visit [facility] [address] [facility] [address] [place] [address] Orville Gandhi, MEDICAL CARE EVALUATION SPECIALIST Edema, unspecified type (Primary Dx); Encounter for change or removal of nonsurgical wound dressing 10/12/2017 9:00 AM EST Nurse Visit [facility] Vascular Surgery [address] [address] Orville Gandhi, MEDICAL CARE EVALUATION SPECIALIST Edema, unspecified type (Primary Dx); Encounter for change or removal of nonsurgical wound dressing 10/07/2017 9:00 AM EST Office Visit [facility] General Surgery [address] [facility] 210 [place] [address] St Shira Snow, AZRA Ulcers of both lower legs, limited to breakdown of skin (Primary Dx); Lymphedema 10/05/2017 Telephone [facility] General Vascular Surgery [address] [address] [address] Shira Snow NP Appointment 09/17/2017 8:40 AM EST Office Visit [facility] General Surgery [address] [facility] 210 [place] [address] [address] Shira Snow SWATCHER Ulcer of left lower extremity, unspecified ulcer stage (Primary Dx); Ulcer of right lower extremity, unspecified ulcer stage; Lymphedema 09/08/2017 9:40 AM EST Nurse Visit [facility] [address] [facility] 210 [place] [address] Orville Gandhi LPN Edema, unspecified type (Primary Dx); Encounter for change or removal of nonsurgical wound dressing 09/03/2017 1:20 PM EST Office Visit [facility] General Surgery [address] [facility] 210 [place] [address] Shira Meyers NP Ulcers of both lower legs, limited to breakdown of skin (Primary Dx); Lymphedema 06/28/2017 9:00 AM EDT Office Visit [facility] General Surgery [address] [facility] 210 [place] [address] Shira Meyers NP Ulcer of lower extremity, left, with unspecified severity (Primary Dx); Ulcer of lower extremity, right, with unspecified severity; Lymphedema 06/15/2017 Telephone [facility] [address] [facility] 210 [place] [address] Shira Meyers NP Wound Care; Equipment/supplies 06/14/2017 9:00 AM EDT Nurse Visit [facility] [address] [facility] 210 [place] [address] Jolene Castellano LPN Edema, unspecified type (Primary Dx); Encounter for change or removal of nonsurgical wound dressing 06/11/2017 9:00 AM EDT Nurse Visit [facility] [address] [facility] 210 [place] [address] Edema, unspecified type (Primary Dx); Encounter for change or removal of nonsurgical wound dressing 06/09/2017 10:00 AM EDT Nurse Visit [facility] [address] [facility] 210 [place] [address] Edema, unspecified type (Primary Dx); Encounter for change or removal of nonsurgical wound dressing 06/07/2017 9:00 AM EDT Nurse Visit [facility] [address] [facility] 210 [place] [address] Larosee, Jolene, MEDICAL CARE EVALUATION SPECIALIST Edema, unspecified type (Primary Dx); Encounter for change or removal of nonsurgical wound dressing 06/02/2017 8:40 AM EDT Office Visit [facility] General Surgery [address] [place] [address] [address] Onge, Shira, SWATCHER Ulcers of both lower legs, limited to breakdown of skin (Primary Dx); Lymphedema; Chronic venous insufficiency 05/12/2017 9:20 AM EDT Office Visit [facility] General Surgery [address] [place] [address] St Onge, Shira, SWATCHER Ulcer of lower extremity, left, with unspecified severity (Primary Dx); Ulcer of lower extremity, right, with unspecified severity; Venous stasis of lower extremity; Lymphedema 05/05/2017 9:20 AM EDT Office Visit [facility] [address] [place] [address] [address] Onge, Shira, SWATCHER Ulcers of both lower legs, limited to breakdown of skin (Primary Dx); Lymphedema 04/28/2017 9:20 AM EDT Office Visit [facility] [address] [place] [address] [address] Onge, Shira, SWATCHER Lymphedema (Primary Dx); Ulcers of both lower legs, limited to breakdown of skin 04/22/2017 8:40 AM EDT Office Visit [facility] [address] [place] [address] [address] Onge, Shira, SWATCHER Lymphedema (Primary Dx); Ulcer of lower extremity, left, with unspecified severity; Ulcer of lower extremity, right, with unspecified severity 04/14/2017 9:20 AM EDT Office Visit [facility] [address] [place] [address] [address] Onge, Shira, SWATCHER Lymphedema (Primary Dx); Ulcers of both lower legs, limited to breakdown of skin; Venous stasis of lower extremity 04/07/2017 9:20 AM EDT Office Visit [facility] Surgery [address] [facility] 210 [place] [address] [address] Onge, Shira, SWATCHER Lymphedema (Primary Dx); Ulcer of lower extremity, left, with unspecified severity; Ulcer of lower extremity, right, with unspecified severity 03/31/2017 8:00 AM EDT Office Visit [facility] [address] [facility] 210 [place] [address] [address] Onge, Shiar, SWATCHER Lymphedema (Primary Dx); Ulcers of both lower legs, limited to breakdown of skin; Morbid obesity due to excess calories 03/30/2017 Telephone [facility] [address] [facility] 210 [place] [address] [address] Onge, Shira, SWATCHER Unna Boot Application 03/19/2017 Telephone [facility] [address] [facility] [address] [place] [address] [address] Onge, Shira, SWATCHER No Show 02/23/2017 Telephone [facility] [address] [facility] [address] [place] [address] [address] Onge, Shira, SWATCHER Unna Boot Application 02/20/2017 Office Visit NON FC SA NON FC UNK S[facility], Unknown Provider 02/18/2017 Consult (Initial) NON FC [facility] [address] [place] [address] Juanjose Watson MD 02/17/2017 [facility] NON FC [facility] [address] [place] [address] Tamika Lomax MD 02/17/2017 8:00 AM EDT Office Visit [facility] [address] [facility] [address] [place] [address] [address] Onge, Shira, SWATCHER Cellulitis of right lower extremity (Primary Dx) 02/16/2017 Telephone [facility] General Vascular Surgery [address] [facility] 210 [place] [address] [address] Onge, Shira, SWATCHER Appointment (tomorrow); Unna Boot Application 02/08/2017 10:20 AM EDT Office Visit [facility] [address] [place] [address] St Onge, Shira, SWATCHER Lymphedema (Primary Dx); Ulcer of lower extremity, left, with unspecified severity 02/01/2017 8:20 AM EDT Office Visit [facility] [address] [place] [address] [address] Onge, Shira, SWATCHER Lymphedema (Primary Dx); Ulcer of lower extremity, left, with unspecified severity; Venous stasis of lower extremity 01/28/2017 8:20 AM EDT Office Visit [facility] [address] [place] [address] [address] Onge, Shira, SWATCHER Lymphedema (Primary Dx); Ulcer of lower extremity, left, with unspecified severity 01/25/2017 1:20 PM EDT Office Visit [facility] [address] [place] [address] St Onge, Shira, SWATCHER Lymphedema (Primary Dx); Ulcer of lower extremity, left, with unspecified severity; Ulcer of lower extremity, right, with unspecified severity 01/21/2017 2:30 PM EDT Nurse Visit [facility] [address] [place] [address] Stinehart, Anabel, MEDICAL CARE EVALUATION SPECIALIST Ulcers of both lower legs (Primary Dx); Edema, unspecified type; Encounter for change or removal of nonsurgical wound dressing 01/18/2017 8:20 AM EDT Office Visit [facility] [address] [place] [address] [address] Onge, Shira, SWATCHER Lymphedema (Primary Dx); Ulcer of lower extremity, left, with unspecified severity; Ulcer of lower extremity, right, with unspecified severity 01/14/2017 8:20 AM EDT Office Visit [facility] [address] [place], [place] [address], [place] [address] [address] Onge, Shira, SWATCHER Lymphedema (Primary Dx); Ulcer of lower extremity, left, with unspecified severity; Ulcer of lower extremity, right, with unspecified severity; Venous stasis of lower extremity 01/11/2017 11:00 AM EDT Nurse Visit [facility] [address] [place] [address] 210 [place] [address] Stinehart, Anabel, MEDICAL CARE EVALUATION SPECIALIST Edema, unspecified type (Primary Dx); Encounter for change or removal of nonsurgical wound dressing 01/06/2017 9:00 AM EDT Office Visit [facility] [address] [place] [address] St Onge, Shira, SWATCHER Lymphedema (Primary Dx); Ulcer of lower extremity, left, with unspecified severity; Ulcer of lower extremity, right, with unspecified severity 12/30/2016 9:00 AM EDT Office Visit [facility] [address] [place] [address] [address] Onge, Shira, SWATCHER Lymphedema (Primary Dx); Ulcer of lower extremity, left, with unspecified severity; Ulcer of lower extremity, right, with unspecified severity 12/23/2016 9:00 AM EST Office Visit [facility] [address] [place] [address] St Onge, Shira, SWATCHER Lymphedema (Primary Dx); Ulcer of lower extremity, left, with unspecified severity; Ulcer of lower extremity, right, with unspecified severity 12/16/2016 1:20 PM EST Office Visit [facility] [address] [place] [address] St Onge, Shira, SWATCHER Ulcer of lower extremity, right, with unspecified severity (Primary Dx); Lymphedema; Ulcer of lower extremity, left, with unspecified severity 12/09/2016 9:00 AM EST Office Visit [facility] [address] [place] [address] St Onge, Shira, SWATCHER Ulcer of lower extremity, right, with unspecified severity (Primary Dx); Lymphedema; Ulcer of lower extremity, left, with unspecified severity 12/02/2016 10:00 AM EST Office Visit [facility] [address] [place] [address] [address] Onge, Shira, SWATCHER Ulcer of lower extremity, right, with unspecified severity (Primary Dx); Lymphedema; Ulcer of lower extremity, left, with unspecified severity 11/25/2016 11:00 AM EST Office Visit [facility] Surgery [address] [place] [address] St Onge, Shira, SWATCHER Lymphedema (Primary Dx); Ulcer of lower extremity, left, with unspecified severity [L97.929]; Ulcer of lower extremity, right, with unspecified severity [L97.919] 11/25/2016 8:00 AM EST Minor Procedure/Test [facility] [address] [place] [phone] Roger Johnson, LANCE Onychomycosis (Primary Dx); Pain in toes of both feet [M79.674, M79.675] 11/19/2016 8:20 AM EST Office Visit [facility] General Surgery [address] [place] [address] [address] Onge, Shira, SWATCHER Lymphedema (Primary Dx); Ulcer of lower extremity, left, with unspecified severity [L97.929]; Ulcer of lower extremity, right, with unspecified severity [L97.919]; Venous stasis of lower extremity 11/11/2016 9:00 AM EST Office Visit [facility] [address] [place] [address] [address] Onge, Shira, SWATCHER Lymphedema (Primary Dx); Ulcer of lower extremity, left, with unspecified severity [L97.929]; Ulcer of lower extremity, right, with unspecified severity [L97.919] 11/04/2016 9:00 AM EST Office Visit [facility] Surgery [address] [facility] [address] [place] [address] [address] Onge, Shira, SWATCHER Lymphedema (Primary Dx); Ulcer of lower extremity, left, with unspecified severity [L97.929]; Ulcer of lower extremity, right, with unspecified severity [L97.919] 10/28/2016 9:20 AM EST Office Visit [facility] General Surgery [address] [facility] 210 [place] [address] [address] Onge, Shira, SWATCHER Lymphedema (Primary Dx); Ulcer of lower extremity, left, with unspecified severity [L97.929]; Ulcer of lower extremity, right, with unspecified severity [L97.919]; Chronic venous insufficiency 10/21/2016 10:40 AM EST Office Visit [facility] Surgery [address] [place] [address] 210 [place] [address] [address] Onge, Shira, SWATCHER Ulcer of lower extremity, left, with unspecified severity [L97.929] (Primary Dx); Ulcer of lower extremity, right, with unspecified severity [L97.919]; Venous stasis of lower extremity 10/14/2016 8:20 AM EST Office Visit [facility] General Vascular Surgery [address] [place] [address] 210 [place] [address] [address] Onge, Shira, SWATCHER Lymphedema (Primary Dx); Ulcer of lower extremity, left, with unspecified severity [L97.929]; Ulcer of lower extremity, right, with unspecified severity [L97.919] 10/07/2016 9:00 AM EST Office Visit [facility] General Vascular Surgery [address] [place] [address] [address] Onge, Shira, SWATCHER Ulcer of lower extremity, left, with unspecified severity [L97.929] (Primary Dx); Ulcer of lower extremity, right, with unspecified severity [L97.919]; Venous stasis of lower extremity 09/30/2016 9:15 AM EST Nurse Visit [facility] General Vascular Surgery [address] [facility] [address] [place] [address] Stinehart, Anabel, MEDICAL CARE EVALUATION SPECIALIST Ulcers of both lower legs (Primary Dx); Edema, unspecified type [R60.9]; Encounter for change or removal of nonsurgical wound dressing 09/06/2016 [facility] [address] [place] [address] Jennifer Gibbons MD 09/02/2016 8:40 AM EST Office Visit [facility] General Vascular Surgery [address] [facility] 210 [place] [address] [address] Onge, Shira, SWATCHER Lymphedema (Primary Dx); Leg ulcer, left, with unspecified severity; Ulcer of lower extremity, right, with unspecified severity [L97.919] 08/27/2016 8:20 AM EST Office Visit [facility] Surgery [address] [facility] [address] [place] [address] [address] Onge, Shira, SWATCHER Lymphedema (Primary Dx); Ulcer of lower extremity, left, with unspecified severity [L97.929]; Ulcer of lower extremity, right, with unspecified severity [L97.919] 08/19/2016 Telephone [facility] Vascular Surgery [address] [facility] [address] [place] [address] [address] Onge, Shira, SWATCHER 08/19/2016 8:40 AM EDT Office Visit [facility]ascular Surgery [address] [facility] [address] [place] [address] [address] Onge, Shira, SWATCHER Lymphedema (Primary Dx); Ulcer of lower extremity, left, with unspecified severity [L97.929]; Ulcer of lower extremity, right, with unspecified severity [L97.919] 08/05/2016 9:15 AM EDT Nurse Visit [facility]ascular Surgery [address] [facility] [address] [place] [address] Stinehart, Anabel, MEDICAL CARE EVALUATION SPECIALIST Bilateral leg ulcer, with unspecified severity (Primary Dx); Edema, unspecified type [R60.9]; Encounter for change or removal of nonsurgical wound dressing 07/29/2016 8:40 AM EDT Office Visit [facility]ascular Surgery [address] [facility] [address] [place] [address] [address] Ally SnowAZRA neely Ulcer of lower extremity, left, with unspecified severity [L97.929] (Primary Dx); Ulcer of lower extremity, right, with unspecified severity [L97.919]; Lymphedema 07/15/2016 9:00 AM EDT Nurse Visit [facility] Surgery [address] [facility] [address] [place] [address] Stinehart, Anabel, MEDICAL CARE EVALUATION SPECIALIST Edema, unspecified type [R60.9] (Primary Dx); Encounter for change or removal of nonsurgical wound dressing; Bilateral leg ulcer, with unspecified severity 07/08/2016 9:00 AM EDT Nurse Visit [facility]ascular Surgery [address] [place] [address] 210 [place] [address] Stinehart, Anabel, MEDICAL CARE EVALUATION SPECIALIST Edema, unspecified type [R60.9] (Primary Dx); Encounter for change or removal of nonsurgical wound dressing 07/01/2016 9:00 AM EDT Nurse Visit [facility] Surgery [address] [place] [address] 210 [place] [address] Stinehart, Anabel, MEDICAL CARE EVALUATION SPECIALIST Edema, unspecified type [R60.9] (Primary Dx); Encounter for change or removal of nonsurgical wound dressing; Bilateral leg ulcer, with unspecified severity 06/24/2016 9:00 AM EDT Nurse Visit [facility] Surgery [address] [facility] 210 [place] [address] MachipongoEssie, LIBRARY CIRCULATION CLERK Edema, unspecified type [R60.9] (Primary Dx); Encounter for change or removal of nonsurgical wound dressing; Ulcer of calf, unspecified laterality, with unspecified severity (HCC) [L97.209] 06/17/2016 9:20 AM EDT Office Visit [facility] [address] [facility] [address] [place] [address] [address] OngeShira SWATCHER Ulcer of lower extremity, left, with unspecified severity (HCC) [L97.929] (Primary Dx); Ulcer of lower extremity, right, with unspecified severity (HCC) [L97.919]; Chronic venous insufficiency 06/10/2016 9:00 AM EDT Nurse Visit [facility] [address] [facility] [address] [place] [address] Stinehart, Anabel, MEDICAL CARE EVALUATION SPECIALIST Ulcers of both lower extremities (Primary Dx); Edema, unspecified type [R60.9]; Encounter for change or removal of nonsurgical wound dressing 06/03/2016 9:00 AM EDT Nurse Visit [facility] [address] [facility] [address] [place] [address] Stinehart, Anabel, MEDICAL CARE EVALUATION SPECIALIST Edema, unspecified type [R60.9] (Primary Dx); Encounter for change or removal of nonsurgical wound dressing; Ulcer of lower extremity, unspecified laterality, with unspecified severity 05/27/2016 9:00 AM EDT Nurse Visit [facility] [address] [place] [address] 210 [place] [address] Stinehart, Anabel, MEDICAL CARE EVALUATION SPECIALIST Edema, unspecified type [R60.9] (Primary Dx); Encounter for change or removal of nonsurgical wound dressing; Ulcers of both lower extremities 05/20/2016 10:20 AM EDT Office Visit [facility] [address] [facility] [address] [place] [address] St Shira Snow, SWATCHER Ulcer of lower extremity, left, with unspecified severity (HCC) [L97.929] (Primary Dx); Ulcer of lower extremity, right, with unspecified severity (HCC) [L97.919]; Edema, unspecified type [R60.9]; Venous stasis of lower extremity 05/06/2016 8:40 AM EDT Nurse Visit [facility] [address] [address] [address] Onge, Shira, SWATCHER Ulcer of lower extremity, left, with unspecified severity (HCC) [L97.929] (Primary Dx); Ulcer of lower extremity, right, with unspecified severity (HCC) [L97.919]; Venous stasis of lower extremity 04/29/2016 8:30 AM EDT Nurse Visit [facility] [address] [place] [address] Stinehart, Anabel, MEDICAL CARE EVALUATION SPECIALIST Ulcers of both lower extremities (Primary Dx); Edema, unspecified type [R60.9]; Encounter for change or removal of nonsurgical wound dressing 04/22/2016 9:00 AM EDT Nurse Visit [facility] [address] [place] [address] Stinehart, Anabel, MEDICAL CARE EVALUATION SPECIALIST Edema, unspecified type [R60.9] (Primary Dx); Encounter for change or removal of nonsurgical wound dressing 04/15/2016 9:00 AM EDT Office Visit [facility] [address] [place] [address] St Onge, Shira, SWATCHER Ulcer of lower extremity, left, with unspecified severity (HCC) [L97.929] (Primary Dx); Venous stasis of lower extremity 04/09/2016 2:30 PM EDT Nurse Visit [facility] [address] [place] [address] Stinehart, Anabel, MEDICAL CARE EVALUATION SPECIALIST Edema, unspecified type [R60.9] (Primary Dx); Encounter for change or removal of nonsurgical wound dressing 04/02/2016 9:15 AM EDT Nurse Visit [facility] [address] [place] [address] Stinehart, Anabel, MEDICAL CARE EVALUATION SPECIALIST Bilateral leg ulcer, with unspecified severity (Primary Dx); Edema, unspecified type [R60.9]; Encounter for change or removal of nonsurgical wound dressing 03/18/2016 8:30 AM EDT Nurse Visit [facility] [address] [facility] 210 [place] [address] Anabel Springer LPN Edema, unspecified type [R60.9] (Primary Dx); Encounter for change or removal of nonsurgical wound dressing 03/12/2016 Telephone [facility] [address] [place] [address] 210 [place] [address] Tamika Lomax MD Results 03/12/2016 2:00 PM EDT Office Visit [facility] [address] [place] [address] 210 [place] [address] Tamika Lomax MD Bilateral leg ulcer, limited to breakdown of skin (Primary Dx); Presence of IVC filter 03/11/2016 8:20 AM EDT Office Visit [facility] [address] [place] [address] 210 [place] [address] [address] Onge, Shira, SWATCHER Lymphedema (Primary Dx); Ulcer of lower extremity, left, with unspecified severity (HCC) [L97.929]; Ulcer of lower extremity, right, with unspecified severity (HCC) [L97.919] 03/05/2016 8:20 AM EDT Office Visit [facility] [address] [place] [address] 210 [place] [address] [address] Onge, Shira, SWATCHER Lymphedema (Primary Dx); Ulcer of lower extremity, left, with unspecified severity (HCC) [L97.929]; Ulcer of lower extremity, right, with unspecified severity (HCC) [L97.919] 02/26/2016 3:00 PM EDT Office Visit [facility] [address] [place] [address] St Onge, Shira, SWATCHER Ulcer of lower extremity, left, with unspecified severity (HCC) [L97.929] (Primary Dx); Ulcer of lower extremity, right, with unspecified severity (HCC) [L97.919]; Lymphedema 02/13/2016 2:15 PM EDT Office Visit [facility] [address] [place] [address] Tamika Lomax MD Venous stasis dermatitis of both lower extremities (Primary Dx) 02/06/2016 Telephone [facility] [address] [place] [phone] Roger Johnson DPM FYAric 01/15/2016 8:20 AM EDT Office Visit [facility] [address] [place] [phone] St OnShira meyer, SWATCHER Lymphedema (Primary Dx); Ulcer of lower extremity, left, with unspecified severity (HCC) [L97.929] 01/09/2016 8:20 AM EDT Office Visit [facility] [address] [place] [phone] St OnShira meyer, SWATCHER Ulcer of lower extremity, left, with unspecified severity (HCC) [L97.929] (Primary Dx); Ulcer of lower extremity, right, with unspecified severity (HCC) [L97.919]; Lymphedema; Chronic venous insufficiency 2015 8:30 AM EST Nurse Visit [facility] [address] [place] [phone] Anabel Springer LPN Ulcer of lower extremity, unspecified laterality, with unspecified severity (Primary Dx); Edema, unspecified type [R60.9]; Encounter for change or removal of nonsurgical wound dressing 12/10/2015 8:00 AM EST Office Visit [facility] [address] [place] [phone] [address] OnShira meyer, SWATCHER Lymphedema (Primary Dx); Ulcer of lower extremity, left, with unspecified severity (HCC) [L97.929]; Venous stasis of lower extremity 11/04/2015 10:00 AM EST Nurse Visit [facility] Surgery [address] [facility] 210 [place] [address] Alvina Springera, MEDICAL CARE EVALUATION SPECIALIST Edema, unspecified type [R60.9] (Primary Dx); Encounter for change or removal of nonsurgical wound dressing 11/01/2015 9:15 AM EST Nurse Visit [facility] Surgery [address] [facility] 210 [place] [address] Rianat Anabel, MEDICAL CARE EVALUATION SPECIALIST Encounter for change or removal of nonsurgical wound dressing (Primary Dx); Ulcer of lower extremity, unspecified laterality, with unspecified severity 10/31/2015 11:20 AM EST Office Visit [facility] [address] [place] [id number] Roger Johnson DPM Atherosclerosis of telida artery of both lower extremities, with unspecified presence of clinical manifestation (HCC) [I70.203] (Primary Dx); Onychomycosis; Pain of toes of both feet 10/28/2015 9:15 AM EST Nurse Visit [facility] Surgery [address] [facility] [address] [place] [address] Alvina Springera, MEDICAL CARE EVALUATION SPECIALIST Ulcer of lower extremity, unspecified laterality, with unspecified severity (Primary Dx); Encounter for change or removal of nonsurgical wound dressing 10/24/2015 9:00 AM EST Office Visit [facility] Surgery [address] [facility] 210 [place] [address] St Shira Snow NP Ulcer of lower extremity, right, with unspecified severity (HCC) [L97.919] (Primary Dx); Chronic venous insufficiency; Venous stasis of lower extremity; Morbid obesity, unspecified obesity type (HCC) [E66.01]; Ulcer of lower extremity, left, with unspecified severity (HCC) [L97.929] 10/14/2015 8:30 AM EST Nurse Visit [facility] [address] [facility] [address] [place] [address] Stinehart, Anabel, MEDICAL CARE EVALUATION SPECIALIST Leg ulcer, unspecified laterality, with unspecified severity (Primary Dx); Generalized edema [R60.1]; Encounter for change or removal of nonsurgical wound dressing 10/03/2015 8:45 AM EST Nurse Visit [facility] [address] [facility] [address] [place] [address] Stinehart, Anabel, MEDICAL CARE EVALUATION SPECIALIST Non-pressure ulcer of lower extremity, unspecified laterality, with unspecified severity (Primary Dx); Generalized edema [R60.1]; Encounter for change or removal of nonsurgical wound dressing 09/26/2015 8:20 AM EST Office Visit [facility] [address] [facility] [address] [place] [address] St Shira Snow, SWATCHER Ulcer of lower extremity, left, with unspecified severity (HCC) [L97.929] (Primary Dx); Ulcer of lower extremity, right, with unspecified severity (HCC) [L97.919]; Edema, due to unspecified malnutrition type, unspecified edema; Morbid obesity, unspecified obesity type (HCC) [E66.01] 09/19/2015 8:30 AM EST Nurse Visit [facility] [address] [facility] [address] [place] [address] Stinehart, Anabel, MEDICAL CARE EVALUATION SPECIALIST Ulcer of lower extremity, unspecified laterality, with unspecified severity (Primary Dx); Generalized edema [R60.1]; Encounter for change or removal of nonsurgical wound dressing 09/06/2015 9:45 AM EST Nurse Visit [facility] [address] [facility] [address] [place] [address] Stinehart, Anabel, MEDICAL CARE EVALUATION SPECIALIST Ulcers of both lower extremities (Primary Dx); Edema, unspecified edema [R60.9]; Encounter for change or removal of nonsurgical wound dressing 08/29/2015 8:20 AM EST Office Visit [facility] [address] [facility] [address] [place] [address] St Onge, Shira, SWATCHER Ulcer of lower extremity, left, with unspecified severity (HCC) [L97.929] (Primary Dx); Ulcer of lower extremity, right, with unspecified severity (HCC) [L97.919]; Venous stasis of lower extremity; Morbid obesity, unspecified obesity type (HCC) [E66.01] 08/22/2015 8:30 AM EST Nurse Visit [facility] [address] [facility] [address] [place] [address] Stinehart, Anabel, MEDICAL CARE EVALUATION SPECIALIST Edema, unspecified edema [R60.9] (Primary Dx); Encounter for change or removal of nonsurgical wound dressing 08/15/2015 8:30 AM EDT Nurse Visit [facility] [address] [place] [address] [address] [place] [address] Stinehart, Anabel, MEDICAL CARE EVALUATION SPECIALIST Generalized edema [R60.1] (Primary Dx); Encounter for change or removal of nonsurgical wound dressing 08/08/2015 8:45 AM EDT Nurse Visit [facility] [address] [place] [address] [address] [place] [address] Stinehart, Anabel, MEDICAL CARE EVALUATION SPECIALIST 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); Varicose veins of left lower extremity with inflammation; Edema, unspecified edema [R60.9]; Encounter for change or removal of nonsurgical wound dressing 08/01/2015 8:20 AM EDT Office Visit [facility] [address] [facility] 210 [place] [address] St Shira Snow NP Venous stasis dermatitis of both lower extremities [I83.11, I83.12] (Primary Dx); Morbid obesity, unspecified obesity type (HCC) [E66.01]; Ulcer of lower extremity, right, with unspecified severity (HCC) [L97.919]; Venous stasis of lower extremity 07/26/2015 10:30 AM EDT Nurse Visit [facility] [address] [place] [address] [address] [place] [address] Stinehart, Anabel, MEDICAL CARE EVALUATION SPECIALIST Edema, unspecified edema [R60.9] (Primary Dx); Encounter for change or removal of nonsurgical wound dressing 07/08/2015 11:00 AM EDT Nurse Visit [facility] [address] [facility] [address] [place] [address] Stinehart, Anabel, MEDICAL CARE EVALUATION SPECIALIST Ulcers of both lower extremities (Primary Dx); Generalized edema [782.3]; Encounter for change or removal of nonsurgical wound dressing 07/08/2015 Telephone [facility] Urology [address] [facility] [address] [place] [address] Shira Meyers NP Unna Boot Application 06/28/2015 2:45 PM EDT Nurse Visit [facility] [address] [facility] 210 [place] [address] Stinehart, Anabel, MEDICAL CARE EVALUATION SPECIALIST Ulcers of both lower extremities (Primary Dx); Encounter for change or removal of nonsurgical wound dressing 06/21/2015 10:00 AM EDT Nurse Visit [facility] [address] [facility] [address] [place] [address] Stinehart, Anabel, MEDICAL CARE EVALUATION SPECIALIST Ulcer of lower extremity, unspecified laterality, with unspecified severity (Primary Dx); Edema; Encounter for change or removal of nonsurgical wound dressing 06/11/2015 9:45 AM EDT Nurse Visit [facility] [address] [facility] [address] [place] [address] [place], Angela, MEDICAL CARE EVALUATION SPECIALIST Edema (Primary Dx); Encounter for change or removal of nonsurgical wound dressing; Ulcer of calf, unspecified laterality, with unspecified severity (HCC) [707.12] 06/05/2015 9:15 AM EDT Nurse Visit [facility] [address] [facility] [address] [place] [address] Stefan, Angela, MEDICAL CARE EVALUATION SPECIALIST Edema (Primary Dx); Encounter for change or removal of nonsurgical wound dressing; Ulcer of calf, unspecified laterality, with unspecified severity (HCC) [707.12] 05/30/2015 10:20 AM EDT Office Visit [facility] [address] [facility] [address] [place] [address] St Shira Snow, SWATCHER Morbid obesity (Primary Dx); Ulcer of lower extremity, right, with unspecified severity (HCC) [707.10]; Ulcer of lower extremity, left, with unspecified severity (HCC) [707.10]; Chronic venous insufficiency; Venous stasis of lower extremity 03/15/2015 8:40 AM EDT Office Visit [facility] [address] [facility] [address] [place] [address] St Shira Snow NP Edema (Primary Dx); Ulcers of both lower legs 03/08/2015 9:00 AM EDT Nurse Visit [facility] [address] [facility] [address] [place] [address] Angela Aviles LPN Edema (Primary Dx); Encounter for change or removal of nonsurgical wound dressing; Ulcer of calf, unspecified laterality, with unspecified severity (HCC) [707.12]; Ulcer of ankle, unspecified laterality, with unspecified severity (HCC) [707.13] 03/04/2015 8:45 AM EDT Nurse Visit [facility] [address] [facility] [address] [place] [address] Angela Aviles LPN Edema (Primary Dx); Encounter for change or removal of nonsurgical wound dressing 02/22/2015 9:00 AM EDT Nurse Visit [facility] [address] [facility] [address] [place] [address] Angela Aviles LPN Edema (Primary Dx); Encounter for change or removal of nonsurgical wound dressing 02/15/2015 8:40 AM EDT Office Visit [facility] [address] [facility] [address] [place] [address] St Shira Snow NP Edema (Primary Dx); Ulcer of lower extremity, right, with unspecified severity (HCC) [707.10]; Venous stasis of lower extremity 02/05/2015 2:00 PM EDT Nurse Visit [facility] [address] [facility] [address] [place] [address] Beba Parker, MEDICAL CARE EVALUATION SPECIALIST Ulcer of lower limb (Primary Dx); Edema; Encounter for change or removal of nonsurgical wound dressing 02/05/2015 Telephone [facility] [address] [facility] [address] [place] [address] Shira Meyers NP Edema 12/28/2014 8:20 AM EDT Office Visit [facility] [address] [facility] [address] [place] [address] Shira Meyers NP Edema (Primary Dx); Ulcer of lower extremity; Venous stasis of lower extremity 12/21/2014 9:15 AM EST Nurse Visit [facility] [address] [facility] [address] [place] [address] Essie Fuller LVN LPN Edema (Primary Dx); Encounter for change or removal of nonsurgical wound dressing; Ulcer of calf 12/14/2014 8:30 AM EST Nurse Visit [facility] [address] [facility] [address] [place] [address] Poncho Parkera, MEDICAL CARE EVALUATION SPECIALIST Edema (Primary Dx); Encounter for change or removal of nonsurgical wound dressing 12/07/2014 8:20 AM EST Office Visit [facility] [address] [facility] [address] [place] [address] Shira Meyers NP Ulcer of lower extremity (Primary Dx); Venous stasis of lower extremity 12/03/2014 9:00 AM EST Nurse Visit [facility] [address] [facility] [address] [place] [address] Anabel Springer, MEDICAL CARE EVALUATION SPECIALIST Edema (Primary Dx); Encounter for change or removal of nonsurgical wound dressing 11/23/2014 9:00 AM EST Nurse Visit [facility] [address] [facility] [address] [place] [address] Beba Parker LPN Edema (Primary Dx); Encounter for change or removal of nonsurgical wound dressing 11/16/2014 9:00 AM EST Nurse Visit [facility] [address] [facility] [address] [place] [address] Anabel Springer LPN Edema (Primary Dx); Encounter for change or removal of nonsurgical wound dressing 11/15/2014 Telephone [facility] Podiatry [address] [place] [address] Roger Johnson DPM FYI 11/09/2014 8:40 AM EST Office Visit [facility] [address] [facility] [address] [place] [address] Shira Meyers NP Ulcer of lower extremity (Primary Dx); Venous stasis of lower extremity 08/22/2014 3:30 PM EST Minor Procedure/Test [facility] Podiatry [address] [place] [address] Roger Johnson DPM Type II diabetes mellitus with peripheral circulatory disorder (Primary Dx); Onychomycosis; Peripheral angiopathy in diseases classified elsewhere; Pain in limb 08/09/2014 Telephone [facility] [address] [facility] [address] [place] [address] Shira Meyers NP Patient Questions ; Equipment/supplies 08/09/2014 8:20 AM EDT Office Visit [facility] [address] [facility] [address] [place] [address] Shira Meyers NP Lymphedema (Primary Dx); Ulcer of lower extremity; Chronic venous insufficiency 07/26/2014 8:20 AM EDT Office Visit [facility] [address] [facility] [address] [place] [address] [address] Onge, Shira, SWATCHER Ulcer of lower extremity (Primary Dx); Chronic venous insufficiency; Morbid obesity; Venous stasis of lower extremity 07/25/2014 Telephone [facility] [address] [facility] [address] [place] [address] Tamika Lomax MD Wound Care; Equipment/supplies 07/20/2014 10:00 AM EDT Office Visit [facility] [address] [facility] [address] [place] [address] Tamika Lomax MD Venous stasis dermatitis (Primary Dx); Venous ulcer of leg 05/31/2014 8:40 AM EDT Office Visit [facility] [address] [facility] [address] [place] [address] [address] Onge, Shira, SWATCHER Ulcer of lower extremity (Primary Dx); Chronic venous insufficiency 05/04/2014 Telephone [facility] [address] [facility] [address] [place] [address] [address] Onge, Shira, SWATCHER No Show 03/29/2014 10:00 AM EDT Office Visit [facility] [address] [facility] [address] [place] [address] [address] Onge, Shira, SWATCHER Morbid obesity (Primary Dx); Ulcer of lower extremity; Venous stasis of lower extremity 02/26/2014 10:00 AM EDT Office Visit [facility] [address] [facility] [address] [place] [address] [address] Onge, Shira, SWATCHER Ulcer of lower extremity (Primary Dx); Venous stasis of lower extremity 01/29/2014 1:20 PM EDT Office Visit [facility] [address] [facility] [address] [place] [address] [address] Onge, Shira, SWATCHER Ulcer of lower extremity (Primary Dx); Venous stasis of lower extremity; Morbid obesity 01/23/2014 11:00 AM EDT Office Visit [facility] [address] [facility] [address] [place] [address] [address] Onge, Shira, SWATCHER Edema (Primary Dx); Morbid obesity; Ulcer of lower extremity; Venous stasis of lower extremity 01/16/2014 11:00 AM EDT Office Visit [facility] [address] [facility] [address] [place] [address] [address] Onge, Shira, SWATCHER Morbid obesity (Primary Dx); Venous stasis of lower extremity; Edema; Ulcer of lower extremity 11/23/2013 Telephone [facility] Podiatry [address] [place] [address] Roger Johnson DPM FYAric 11/22/2013 Telephone [facility] [address] [place] [address] St Onge, Shira, SWATCHER No Show 10/10/2013 10:40 AM EST Office Visit [facility] [address] [facility] [address] [place] [address] [address] Onge, Shira, SWATCHER Ulcer of lower extremity (Primary Dx); Venous stasis of lower extremity 09/05/2013 9:20 AM EST Office Visit [facility] [address] [place] [address] [address] Onge, Shira, SWATCHER Morbid obesity (Primary Dx); Ulcer of lower extremity; Chronic venous insufficiency 08/15/2013 9:40 AM EDT Office Visit [facility] [address] [facility] [address] [place] [address] [address] Onge, Shira, SWATCHER Morbid obesity (Primary Dx); Ulcer of lower extremity; Venous stasis of lower extremity 08/09/2013 1:30 PM EDT Consult (Initial) [facility] Podiatry [address] [place] [address] Roger Johnson DPM Type II diabetes mellitus with peripheral circulatory disorder (Primary Dx); Onychomycosis; Peripheral angiopathy in diseases classified elsewhere; Pain in limb 07/24/2013 10:30 AM EDT Office Visit [facility] [address] [facility] [address] [place] [address] Tamika Lomax MD Venous ulcer of leg (Primary Dx); Venous insufficiency 07/07/2013 9:00 AM EDT Office Visit [facility] [address] [facility] [address] [place] [address] Shira Meyers NP Ulcer of lower extremity (Primary Dx); Venous stasis of lower extremity; Morbid obesity 06/21/2013 2:30 PM EDT Office Visit [facility] [address] [facility] [address] [place] [address] Tamika Lomax MD Venous ulcer of leg (Primary Dx) 06/15/2013 Telephone [facility] [address] [facility] [address] [place] [address] Tamika Lomax MD Wound Care 06/14/2013 Minor Procedure/Test NON FC [facility] [address] [place] [address] Tamika Lomax MD 06/09/2013 Orders Only [facility] Cardiology [address] [facility] [address] [place] [address] Shilpi Vasquez [facility] 06/09/2013 9:00 AM EDT Nurse Visit [facility] Pre-Admission Testing [address] [facility] [address] [place] [address] Ally Ervin RN Leg ulcer (Primary Dx) 06/09/2013 8:00 AM EDT Office Visit [facility] Pre-Admission Testing [address] [facility] [address] [place] [address] Yolande Garcia NP Pre-operative examination (Primary Dx); Venous ulcer of leg; Deep vein thrombosis; HTN (hypertension); Sleep apnea; Spinal stenosis 06/07/2013 2:45 PM EDT Office Visit [facility] [address] [facility] [address] [place] [address] Tamika Lomax MD Leg ulcer (Primary Dx); Venous stasis 05/31/2013 9:00 AM EDT Nurse Visit [facility] [address] [facility] [address] [place] [address] Stinehart, Anabel, MEDICAL CARE EVALUATION SPECIALIST Ulcer of lower extremity (Primary Dx); Edema; Encounter for change or removal of nonsurgical wound dressing 05/24/2013 9:20 AM EDT Office Visit [facility] [address] [facility] [address] [place] [address] St Shira Snow NP Ulcer of lower extremity (Primary Dx); Venous stasis of lower extremity 05/18/2013 Orders Only FAM PRAC UNSPECIFIED Malik Nolan DO 05/17/2013 9:15 AM EDT Nurse Visit [facility] Surgery [address] [facility] [address] [place] [address] Stinehart, Anabel, MEDICAL CARE EVALUATION SPECIALIST Edema (Primary Dx); Encounter for change or removal of nonsurgical wound dressing; Ulcer of calf 05/10/2013 9:15 AM EDT Nurse Visit [facility] [address] [facility] [address] [place] [address] Stinehart, Anabel, MEDICAL CARE EVALUATION SPECIALIST Ulcer of lower extremity (Primary Dx); Edema; Encounter for change or removal of nonsurgical wound dressing 05/03/2013 9:20 AM EDT Office Visit [facility] [address] [facility] [address] [place] [address] St Shira Snow NP Morbid obesity (Primary Dx); Ulcer of lower extremity; Venous stasis of lower extremity 04/26/2013 9:20 AM EDT Consult (Initial) [facility] [address] [facility] [address] [place] [address] [address] Shira Snwo SWATCHER Ulcer of lower extremity (Primary Dx); Venous stasis of lower extremity [...] stasis 1 PATCH DAILY Active [facility], TOPICAL, [id number] U/GM OintmentIndicati ons:Leg ulcer (HCC),Venous stasis None [...] Name Administration Dates Next Due COVID-19, mRNA (Pfizer Pre F all 2022) Monovalent, 30 mcg/0.3 ml 10/15/2021,01/08/2021,12/18/2020 Covid-19, mRNA (Pfizer Pre F all 2022) Monovalent, 30 mcg/0.3 ml opal-sucrose (12+) 05/21/2022 Influenza,injectable,quad,Prsrv Fr 06/17/2021, Influenza,injectable,quad,pr eserva tive 07/06/2019,08/02/2018,06/29/2017, 01 6,07/02/2015 Influenza,recombinant,quad,i njecta ble,Prsrv Fr 07/21/2022 Influenza,seasonal,trivalent ,prese rvative (FLUZONE MDV) 06/24/2012 PPV23 (Pneumovax) 09/25/2017 Tdap 12/07/2019 Zoster (Shingrix) 07/22/2022,05/06/2022 Social History Smoking Status as of 01/18/2025 Tobacco Use Types Packs/Day Years Used Date [...] Not on file Procedures * Due to [place] state law, this organization might not be [...] 7:25 AM EDT Venous ulcer of leg Pre-operative examination UNSPECIFIED DIAGNOSTIC PROCE 05/18/2013 Results * Due to [place] state law, this organization might not be sharing negative HIV tests. * UNSPECIFIED MAJOR PROCEDURE (09/29/2019) us Joshua Hendrix MD PROCEDURES Final Resul t * (ABNORMAL) CBC WITH 5 PART DIFF (02/19/2017 7:20 AM EDT) Only the most recent of3 resultswithin the time period is included. WHITE BLOOD COUNT 6.4 3.9 - 11.0 x1000/uL [facility] Comment: Smear review performed when a >50% change is noted in any parameter, or more than 72 hours has elapsed since the last CBC. RBC 3.47(L) 4.30 - 5.80 mil/ul [facility] Hemoglobin 10.8(L) 12.5 - 17.0 g/dL [facility] HCT (HEMATOCRIT) 33.4(L) 36.0 - 50.0 % [facility] MCV 96 80 - 100 fL [facility] MCH 31 27 - 33 pg [facility] MCHC 32 31 - 36 g/dL [facility] RDW 14.7(H) 11.4 - 14.4 % [facility] PLATELETS 337 150 - 450 x1000/uL [facility] MPV 9.6 7.0 - 11.0 fL [facility] NEUTROPHILS 69 % [facility] LYMPHOCYTE % 16 % [facility] MONOCYTE % 12 % [facility] EOSINOPHIL % 2 % [facility] BASOPHIL % 1 % [facility] NEUTROPHILS (#) 4.4 1.8 - 7.0 x1000/uL [facility] LYMPHOCYTES # 1.0 0.7 - 4.5 x1000/uL [facility] MONOCYTES # 0.8 0.1 - 0.8 x1000/uL [facility] EOSINOPHILS # 0.1 0.0 - 0.4 x1000/uL [facility] BASOPHILS # 0.1 0.0 - 0.2 x1000/uL [facility] 02/19/2017 7:20 AM EDT 02/19/2017 7:20 AM EDT Tamika Lomax MD LABORATORY Final Res ult Performing Organization Address [facility] de Phone Number [facility] [address] [place] [address] * (ABNORMAL) PROTHROMBIN TIME (02/19/2017 7:20 AM EDT) Only the most recent of3 resultswithin the time period is included. PT (PROTHROMBIN TIME) 19.0(H) 9.1 - 12.0 sec [facility] INR 1.8(L) 2.0 - 3.5 [facility] Comment: INR reference interval applies to patients on anticoagulant therapy. ??Suggested INR therapeutic range for oral anticoagulant therapy:(Stabilized anticoagulated patients) ?Routine Therapy: ? 2.0-3.0 ?Recurrent Myocardial Infarction or ?Mechanical Prosthetic Valves: ?2.5-3.5 02/19/2017 7:20 AM EDT 02/19/2017 7:20 AM EDT Tamika Lomax MD LABORATORY Final Res ult Performing Organization Address [facility] Co de Phone Number [facility] [address] [place] [address] * URINALYSIS,C&S IF INDICATED (02/18/2017 8:33 PM EDT) COLOR (URINE) YELLOW [facility] APPEARANCE (URINE) CLOUDY [facility] GLUCOSE (URINE) NEGATIVE Negative mg/dL [facility] BILIRUBIN (URINE) NEGATIVE Negative [facility] Ketones (Urine) NEGATIVE Negative mg/dL [facility] SPECIFIC GRAVITY 1.022 1.005 - 1.030 [facility] BLOOD (URINE) NEGATIVE Negative [facility] PH (URINE) 5.5 5.0 - 8.0 [facility] PROTEIN (URINE) NEGATIVE Neg-Trace mg/dL [facility] UROBILINOGEN 0.2 0.2 - 1.0 mg/dL [facility] NITRITE (URINE) NEGATIVE Negative [facility] WBC (URINE) NEGATIVE Negative [facility] Microscopic (Urine) [facility] Comment:Microscopic not leonor cated Culture Indication NO [facility] 02/18/2017 8:33 PM EDT 02/18/2017 8:33 PM EDT Tamika Lomax MD LABORATORY Final Res ult [facility] [address] [place] [address] * CULTURE, BLOOD #2 (02/17/2017 3:10 PM EDT) Pathologist [facility] SOURCE: Venipuncture [facility] Result(s) No growth after 5 days incubation [facility] REPORT STATUS: Final [facility] 02/17/2017 3:10 PM EDT 02/17/2017 3:10 PM EDT Tamika Lomax MD LABORATORY Final Res ult Performing Organization Address City/[facility]/ZIP Co de Phone Number [facility] [address] [place] [address] * CULTURE, BLOOD #1 (02/17/2017 3:05 PM EDT) SOURCE: Venipuncture [facility] Result(s) No growth after 5 days incubation [facility] REPORT STATUS: Final [facility] 02/17/2017 3:05 PM EDT 02/17/2017 3:05 PM EDT us Tamika Lomax MD LABORATORY Final Res ult Performing Organization Address [facility] Co de Phone Number [facility] [address] [place] [address] * PHOSPHORUS (02/17/2017 3:05 PM EDT) PHOSPHATE 3.0 2.5 - 4.5 mg/dL [facility] 02/17/2017 3:05 PM EDT 02/17/2017 3:05 PM EDT us Tamika Lomax MD LABORATORY Final Res ult Performing Organization Address [facility] Co de Phone Number [facility] [address] [place] [address] * MAGNESIUM (02/17/2017 3:05 PM EDT) MAGNESIUM 1.8 1.6 - 2.6 mg/dL [facility] 02/17/2017 3:05 PM EDT 02/17/2017 3:05 PM EDT us Tamika Lomax MD LABORATORY Final Res ult Performing Organization Address [facility] Co de Phone Number [facility] [address] [place] [address] * (ABNORMAL) BASIC METABOLIC PANEL (02/17/2017 3:05 PM EDT) Glucose 128(H) 65 - 99 mg/dL [facility] BUN 11 5 - 26 mg/dL [facility] CREATININE 0.93 0.5 - 1.5 mg/dL [facility] BUN/Creatinine Ratio 12 8 - 27 [facility] GLOM FILT RATE, EST 94.1 >59 mL/min [facility] IF -KENNETH N 109.0 >59 mL/min [facility] SODIUM 139 134 - 144 mEq/L [facility] POTASSIUM 3.7 3.6 - 5.6 mEq/L [facility] CHLORIDE 104 96 - 109 mEq/L [facility] CARBON DIOXIDE 23 20 - 32 mEq/L [facility] ANION GAP 12.0 8 - 15 [facility] CALCIUM 8.5 8.3 - 10.0 mg/dL [facility] 02/17/2017 3:05 PM EDT 02/17/2017 3:05 PM EDT us Tamika Lomax MD LABORATORY Final Res ult [facility] [address] [place] [address] * CXR 2 VIEW AP/PA AND LAT (02/17/2017 1:59 PM EDT) RADIOLOGY REPORT [facility] Department of Radiology [address] [place] [address], [id number] Name: RICARDO REECE : 63 Date of Service: 02/17/171454 Acct Number: [id number] Order Number: ??[id number] ?Location: [facility] Report Number: [id number] ?Service: ADM IN/HENRRY Requesting Physician: Larry Burgos Category: RADIOLOGY ??[facility] Exam: CHEST 2 VIEW (DEPARTMENT) ?? [...] is seen. Date/Time of Dictation: 02/17/17 1503 [employer] Information Clerk (if applicable): Approved By Attending Radiologist: Dylon Garcia 02/17/17 1503 [facility] Department of Radiology [address] [place] [address], [phone] ? [phone] ? [facility] Anatomical Region Laterality Modality Other 02/17/2017 1:59 PM EDT Narrative 02/17/2017 3:04 PM EDT Reason for Study/History: Department of Radiology TEST(S) PROCESSED BY [facility] XRAY us Unknown Provider [facility] IMAGING-[facility] Final Resul t * CULTURE,ANAEROBIC (06/14/2013 10:50 AM EDT) SOURCE: Tissue wound rt leg [facility] GRAM STAIN Many (>25/lpf) WBC No bacteria seen [facility] Result(s) No anaerobes isolated Aerobic Gram Positive Cocci [facility] REPORT STATUS: Final [facility] 06/14/2013 10:5 0 AM EDT 06/14/2013 10:50 AM EDT us Tamika Lomax MD LABORATORY Final Res ult [facility] [address] [place] [address] * CULTURE,ANY SOURCE (06/14/2013 10:48 AM EDT) SOURCE: Tissue wound rt leg [facility] GRAM STAIN Many (>25/lpf) WBC No bacteria seen [facility] Result(s) Streptococcus species Group G - Light growth (1-2+) Mixed gram positive organisms - Rare growth [facility] REPORT STATUS: Final [facility] 06/14/2013 10:4 8 AM EDT 06/14/2013 10:48 AM EDT Tamika Lomax MD LABORATORY Final Res ult [facility] [address] [place] [address] * UNSPECIFIED MAJOR PROCEDURE (06/14/2013) Narrative Transcriptions [...] was 16 cm2. SURGEON: Dr. Tamika Lomax. DIRECTOR OF VOCATIONAL TRAINING: Dr. Bradley. ANESTHESIA: General. ESTIMATED BLOOD LOSS: [...] underneath. Once this was accomplished, the [employer] regulatory services consultant was brought into the field and the [...] 11:51 A TT: 12:06 P Doc #: [id number] cc: MD Malik Washburn MD us Tamika Lomax MD PROCEDURES Final Res ult [...] MUSE EKG SYSTEM 06/09/2013 7:25 AM EDT us Yolande Garcia NP CARDIOVASCULAR-WITH INBSKT R TG Final Result MUSE EKG SYSTEM * UNSPECIFIED DIAGNOSTIC PROCE (05/18/2013) Narrative Transcriptions Malik Nolan, - 06/13/2013 12:00 AM EDT Malik Nolan [...] Unspecified venous (peripheral) insufficiency 07/26/2014 Morbid obesity (HCC) Morbid obesity 07/26/2014 Venous stasis of lower [...] Onychomycosis Dermatophytosis of nail 10/31/2015 Atherosclerosis of telida artery of both lower extremities, with unspecified [...] lower legs, limited to breakdown of skin ([facility]) 09/03/2017 Lymphedema Other lymphedema 09/03/2017 Edema, unspecified type 09/08/2017 Encounter for change or removal of nonsurgical wound dressing 09/08/2017 Ulcer of left lower extremity, unspecified ulcer stage (HCC) 09/17/2017 Ulcer of right lower extremity, unspecified ulcer stage ([facility]) 09/17/2017 Lymphedema Other lymphedema 09/17/2017 Ulcers of both lower legs, limited to breakdown of skin ([facility]) 10/07/2017 Lymphedema Other lymphedema 10/07/2017 Edema, unspecified [...] legs, limited to breakdown of skin (HCC) 12/08/2017 Lymphedema Other lymphedema 12/08/2017 Ulcers of both lower legs, limited to breakdown of skin (HCC) 2017 Lymphedema Other lymphedema 2017 Ulcers of both lower legs, limited to breakdown of skin (HCC) 12/22/2017 Lymphedema Other lymphedema 12/22/2017 Edema, unspecified type 12/31/2017 Encounter for change or removal of nonsurgical wound dressing 12/31/2017 Ulcers of both lower legs, limited to breakdown of skin (HCC) 01/05/2018 Lymphedema Other lymphedema 01/05/2018 Ulcers of both lower legs, limited to breakdown of skin ([facility]) 01/12/2018 Lymphedema of both lower extremities 01/12/2018 [...] Onychomycosis Dermatophytosis of nail 04/13/2018 Atherosclerosis of telida artery of both lower extremities, with unspecified presence of clinical manifestation 04/13/2018 Pain of toes of both feet 04/13/2018 Edema, unspecified type 04/27/2018 Encounter for change or removal of nonsurgical wound dressing 04/27/2018 Edema, unspecified type 05/04/2018 Encounter for change or removal of nonsurgical wound dressing 05/04/2018 Lymphedema of both lower extremities 05/11/2018 Ulcers of both lower legs, limited to breakdown of skin ([facility]) 05/11/2018 Edema, unspecified type 05/18/2018 Encounter for change or removal of nonsurgical wound dressing 05/18/2018 Ulcer of left lower extremity, unspecified ulcer stage ([facility]) 05/25/2018 Lymphedema of both lower extremities 05/25/2018 Lymphedema of both lower extremities 06/01/2018 Ulcers of both lower legs, limited to breakdown of skin ([facility]) 06/01/2018 Spinal stenosis of lumbar region with [...] with neurogenic claudication 08/15/2018 BMI 50.0-59.9, adult ([facility]) Body Mass Index 50.0-59.9, adult 08/15/2018 Trigger [...] leg, limited to breakdown of skin (HCC) 03/05/2021 Care Teams Relationship Counselor Relationship Specialty Start Date End Date Destiny Trinidad MD [facility] [employer] [address] [place] [address] PCP - General Family Medicine 12/22/17
== END ==
LOC: HO.CARD 10:20
PROVIDERS: Visit Provider Nurse Practitioner Family
DX: I48.0 Paroxysmal atrial fibrillation (principal)
CPT/HCPCS: 93270

== ENCOUNTER → 2025-01-18 10:23 | Outpatient (BNV) | payer MEDICARE, MEDICAID, SELFPAY | PROVIDERS: Visit Provider Internal Medicine | DX: I48.91 Unspecified atrial fibrillation (principal) | CPT/HCPCS: 93272 ==

== ENCOUNTER 2025-03-15 09:54 | Outpatient (REF) | payer MEDICARE, MEDICAID, SELFPAY ==
--- NOTE | ~2025-03-15 | US_ITS ---
CLINICAL HISTORY: N20.0 - Calculus of kidney US Renal Comparison: None Findings: Right kidney normal size and increased echotexture, 10.0 cm length. Left kidney normal size and echotexture, 10.5 cm length. No hydronephrosis of either kidney. Normal color Doppler IMPRESSION: 1. Possible chronic changes right kidney. No acute findings. This document has been electronically signed by: Zack Trinidad MD on 03/16/2025 08:51:02
--- OUTSIDE RECORDS SUMMARY | 2025-03-15 10:16 | XMS_ITS | Clinical Summary ---
Author Organization [facility] Address [address] [place] [address] Care Team Providers Care [employer] Scientist Name Role Phone Destiny Trinidad MD Primary Care Provider [phone] Steven Ch MD Unavailable [phone] Allergies Active Allergy Reactions Criticality Noted Date Comments Amoxicillin Rash/Dermatitis,Fever High 09/19/2021 Cephalosporins Hives High 09/19/2021 Clindamycin Rash/Dermatitis,Fever High 09/19/2021 Epanolol Hives Medium 10/24/2021 Misoprostol Hives,Itching,Fever High 09/19/2021 Nsaids Other (See Comments) 09/19/2021 S/p gastric bypass Penicillins Rash/Dermatitis,Fever High 09/19/2021 Sulfa Antibiotics Rash/Dermatitis,Fever High 021 Vancomycin Rash/Dermatitis,Fever High 09/19/2021 Medications ferrous sulfate 325 (65 FE) MG tablet [...] mouth every morning before breakfast. Active calcium carbonate-claudette min D 600 mg-400 unit tablet Take 1 tablet by mouth daily. Active montelukast (SINGULAIR) 10 MG tablet Take 10 mg by mouth nightly. Active albuterol (PROAIR RESPICLICK) 108 (90 Base) MCG/ACT inhaler Inhale 1 puff 4 times daily (every 6 hours) as needed for wheezing. Active warfarin (COUMADIN) 6 MG tablet Take 6 mg by mouth daily at the same time. Active cyclobenzaprin e (FLEXERIL) 5 MG tablet Take 5 mg by mouth 3 times daily (every 8 hours) as needed for muscle spasms. Take 1 to 2 tabs Active gabapentin (NEURONTIN) 300 MG capsule Take 300 mg by mouth 3 (three) times a day. Active nystatin (MYCOSTATIN) 751946 UNIT/GM cream Apply topically 2 (two) times [...] 1 tablet by mouth daily. Active lisinopril (PRINIVIL,ZeST RIL) 20 MG tablet Take 20 mg by mouth daily. Active furosemide (LASIX) 20 MG tablet Take 20 mg by mouth daily. Active tamsulosin (FLOMAX) 0.4 MG capsule Take 0.4 mg by mouth daily. Active cyanocobalamin (VITAMIN B-12) 500 MCG tablet Take 500 mcg by mouth daily. Active Calcium Carb-Cholecalc iferol (CALCIUM CARBONATE+CLAUDETTE MIN D PO) Take 1,500 mg by mouth. 10/07/20 21 Discontinu ed(Patient Discharge) Ascorbic Acid (vitamin C) 100 MG tablet Take 100 mg by mouth daily. 10/07/20 Discontinu ed(Patient Discharge) Immunizations Immunization Administration Dates Next Due Covid-19 MRNA Vaccine - Fototwics 12+ (Purple Cap) 10/13/2021 Family History Medical [...] at Not on file Legal Sex Male 8:17 AM EDT Gender Identity Not on file [...] Zoster (Shingles) Vaccine (1 of 2) 2014 COVID-19 Vaccine (4 - 2023-2 5 season) 2024 10/13/2021, 01/08/2021, 12/18/2020 Influenza Vaccine 05/18/2025 06/17/2021, 08/07/2014, 06/24/2012 RSV Vaccine 60 years and older and Patients (1 - 1-dose 75+ series) 12/18/2039 Hepatitis B Vaccines Aged Out No long er eligible based on patient's age to complete this [place] [id number] [facility] MEDICARE [facility] Care Teams [employer] Scientist Relationship Specialty Start Date End Date Destiny Trinidad MD [address] [address] PCP - General 09/25/21 Steven Ch MD [address] [place] [address] [address] [place] [address] [employer] Cardiovascular Disease 09/25/21
== END 2025-03-15 09:55 | disposition home or self-care (01) ==
LOC: HO.HMGCX 09:54
PROVIDERS: PCP Family Medicine; Visit Provider Urology
DX: N20.0 Calculus of kidney (principal)
CPT/HCPCS: 76775

== ENCOUNTER → 2025-03-15 10:24 | Outpatient (BNV) | payer MEDICARE, MEDICAID, SELFPAY | PROVIDERS: PCP Family Medicine; Visit Provider Specialist | DX: N20.0 Calculus of kidney (principal) | CPT/HCPCS: 76775 ==

== ENCOUNTER 2025-03-27 14:49 | Inpatient (IN) | payer MEDICARE, MEDICAID, SELFPAY ==
--- NOTE | ~2025-03-27 | CT_ITS ---
CLINICAL HISTORY: ams CT head without contrast Comparison: None Findings: No intra-axial mass, midline shift, hydrocephalus, or acute hemorrhage. Mild diffuse cerebral volume loss. Mild degree of patchy low-density within the periventricular and subcortical white matter. There is no sinus or mastoid fluid. The orbits are within normal limits. No skull fracture. IMPRESSION: 1. No acute intracranial findings. This document has been electronically signed by: Madisyn Alonso MD on 03/27/2025 18:46:38
--- NOTE | ~2025-03-27 | CT_ITS ---
CLINICAL HISTORY: nausea CT abdomen and pelvis with contrast Comparison: CT - CT ABDOMEN PELVIS W IV CON - 03/27/25 17:41 EDT Findings: The lung bases are clear. Gallbladder is within normal limits. Moderate right perinephric fat stranding. Multiple ill-defined regions of hypodensity within the right renal parenchyma. Nonobstructing 4 mm calculus within the right interpolar kidney posteriorly. Nonobstructing punctate calculus within the superior pole right kidney. Mild right hydronephrosis. Right ureteropelvic junction calculus measuring 3 mm. No bowel obstruction, pneumoperitoneum, or pneumatosis. Small hiatal hernia. Inferior vena cava stent is present. Pelvic contents unremarkable. Appendix is not seen. No acute fracture. IMPRESSION: 1. Right ureteropelvic junction calculus associated with right hydronephrosis. 2. Findings suggestive of right pyelonephritis. Correlation with urinalysis recommended. 3. Small hiatal hernia. This document has been electronically signed by: Madisyn Alonso MD on 03/27/2025 18:45:19
--- NOTE | ~2025-03-27 | XR_ITS ---
EXAMINATION: XR CHEST CLINICAL INFORMATION: cp COMPARISON: 05/03/2023. TECHNIQUE: Frontal view of the chest was obtained. FINDINGS: Borderline cardiac enlargement. Mediastinal and hilar contours appear normal. The lungs are clear bilaterally. No pneumothorax or effusion. No focal osseous or soft tissue abnormality. XR/XR chest 1V IMPRESSION: No active pulmonary disease. Mild cardiac enlargement.. Electronically signed by: Jerry Garcia MD 03/27/2025 03:50 PM EDT
--- NOTE | ~2025-03-27 | FL_ITS ---
EXAMINATION: FL GUIDANCE ONLY HISTORY: stone right COMPARISON: Correlation is made with a CT of the abdomen and pelvis dated 03/27/2025. TECHNIQUE: Fluoroscopy time: 3.4 seconds. Cumulative Dose: 2.14 mGy. Images: 2. FINDINGS: Fluoroscopic spot films demonstrate placement of a right nephroureteral stent. Incidental note is made of an IVC stent. FL/FL guidance in OR IMPRESSION: Fluoroscopy during procedure. Please see procedure report for additional information. Electronically signed by: Severo Ibrahim MD 03/29/2025 07:05 AM EDT
[2025-03-27 15:04] VITALS: BP 164/92; BP 180/120; PULSE 110; PULSE 140; RESP 20; TEMP 36.9; O2SAT 95; O2SAT 96; BMI 52.1
--- NOTE | 2025-03-27 15:23 | ED.CHESTPAIN ---
HPI - Chest Pain General Chief Complaint: Chest Pain Stated Complaint: sepsis alert per EMS, rapid Afib, fever, weak Time Seen by Provider: 03/27/25 14:55 History of Present Illness HPI narrative: Patient is a 59-year-old male with a history of atrial fibrillation history of gastric bypass many years ago. 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 At 1 point patient weighs over 600 lb. History of asthma. Complaining of generalized malaise weakness decreased p.o. intake. No chest pain positive generalized malaise no abdominal pain decreased appetite no vomiting no headache on Eliquis for the atrial fibrillation and blood clots. Related Data Home Medications ?Medication ?Instructions ?Recorded ?Confirmed montelukast 10 mg tablet 10 mg PO BEDTIME 05/13/21 01/12/25 ferrous sulfate 325 mg (65 mg 1 tab PO DAILY 03/26/22 01/12/25 iron) tablet gabapentin 300 mg capsule 300 mg PO TID 09/30/22 01/12/25 diphenoxylate-atropine 2.5 5 ml PO QID PRN Diarrhea 05/03/23 01/12/25 mg-0.025 mg/5 mL oral liquid oxycodone 5 mg tablet 5 mg PO Q6H PRN Pain (Scale Score 05/03/23 01/12/25 4-6) duloxetine 20 mg capsule,delayed 20 mg PO DAILY 11/12/23 01/12/25 release nystatin 100,000 unit/gram topical topical BID 11/12/23 01/12/25 cream tamsulosin 0.4 mg capsule 0.4 mg PO DAILY 11/12/23 01/12/25 dapagliflozin propanediol 5 mg 5 mg PO DAILY 03/30/24 01/12/25 tablet (Farxiga) calcium 600 mg (as 1 tab PO DAILY 05/08/24 01/12/25 carbonate)-vitamin D3 10 mcg (400 unit) tablet multivitamin with folic acid 400 1 tab PO DAILY 05/08/24 01/12/25 mcg tablet (Daily-Brent (with folic acid)) sertraline 100 mg tablet 100 mg PO DAILY 05/08/24 01/12/25 prednisolone acetate 1 % eye drp ophthalmic (eye) 08/15/24 01/12/25 drops,suspension semaglutide (weight loss) 0.25 0.25 mg subcut QWEEK 01/12/25 01/12/25 mg/0.5 mL subcutaneous pen injector (Chapito) Previous Rx's ?Medication ?Instructions ?Recorded simethicone 125 mg chewable tablet 125 mg PO BID-QID PRN abdominal 07/12/23 (Gas Relief (simethicone)) distention #120 tabs Bifidobacterium infantis 4 mg 4 mg PO DAILY #90 caps 11/12/23 capsule (Align (B.infantis)) lorazepam 1 mg tablet 1 mg PO BEDTIME PRN anxiety #1 tab 04/12/24 zolpidem 10 mg tablet 10 mg PO BEDTIME for sleep study 04/12/24 #2 tabs rifaximin 550 mg tablet 550 mg PO TID 2 weeks #42 tabs 05/08/24 budesonide 3 mg 9 mg (3 x 3 mg) PO DAILY #270 caps 07/26/24 capsule,delayed,extended release oxybutynin chloride 15 mg 15 mg PO DAILY #90 tabs 08/09/24 tablet,extended release 24 hr apixaban 5 mg tablet 5 mg PO BID #180 tabs 09/04/24 esomeprazole magnesium 40 mg 40 mg PO DAILY #90 caps 11/06/24 capsule,delayed release vibegron 75 mg tablet (Gemtesa) 75 mg PO DAILY #90 tabs 12/20/24 colesevelam 625 mg tablet 1,250 mg (2 x 625 mg) PO BID for 01/02/25 diarrhea #360 tabs pwryzz-[id number]-bgqyjkj 2 cap PO BID #100 caps 01/02/25 24,000-76,000-120,000 unit capsule,delayed rel (Creon) sucralfate 100 mg/mL oral 10 ml PO BID PRN for pain #1,000 mL 02/13/25 suspension amiodarone 200 mg tablet 200 mg PO .COMPLEX 30 days #70 tabs 03/02/25 Allergies Allergy/AdvReac Type Severity Reaction Status Date / Time cefaclor [From [facility]] Allergy Severe hives Verified 03/27/25 15:05 epanolol Allergy Severe hives Verified 03/27/25 15:05 misoprostol Allergy Severe rash Verified 03/27/25 15:05 NSAIDS (Non-Steroidal Allergy Severe GI upset Verified 03/27/25 15:05 Anti-Inflamma Penicillins Allergy Severe hives, Verified 03/27/25 15:05 rash, itching Sulfa (Sulfonamide Allergy Severe Hives Verified 03/27/25 15:05 Antibiotics) Cephalosporins Allergy Intermediate hives Verified 03/27/25 15:05 amoxicillin Allergy Mild rash Verified 03/27/25 15:05 vancomycin Allergy Mild itching Verified 03/27/25 15:05 clindamycin AdvReac Intermediate Rash Verified 03/27/25 15:05 Review of Systems Review of Systems: Positive generalized malaise weakness [facility] Past Medical History Attestation statement: The following information was validated with the patient. Medical History Nocturnal hypoxemia Somnolence, daytime Loud snoring SHAYLA (obstructive sleep apnea) Paroxysmal A-fib Atrial flutter PAF (paroxysmal atrial fibrillation) On beta ptay at home On anticoagulant therapy SHAYLA on CPAP Bronchial asthma Restrictive lung disease Migration of vascular stent Pulmonary embolus Family history of stent Uncomplicated opioid dependence Lymphedema Lumbar disc disease Venous stasis Hyperlipidemia Neurogenic bladder Dyspnea Lumbar disc prolapse with root compression History of kidney stones GERD (gastroesophageal reflux disease) OA (osteoarthritis) Morbid obesity Asthma Depression Essential hypertension Surgical History Hx of cervical spine surgery S/P IVC filter S/P appendectomy Hx of colonoscopy History of esophagogastroduodenoscopy (EGD) Hx of eye surgery Hx of gastric bypass Family History Family History Mother Diabetes Father Brain cancer Sister Diabetes Sister Diabetes Sister Diabetes Brother Blind Brother No problems noted. Brother No problems noted. Brother No problems noted. Brother No problems noted. Daughter No problems noted. Daughter Mental health disorder Son Mental health disorder Son No problems noted. Son No problems noted. Social History Social History Household Members: Children Household Members Other:: - 5 kids Housing: House Are you a primary career development associate to a significant other at home: No Do you presently have visiting nurse or other home services: Yes (HOUSE NURSE that visits every 3 months) Alcohol intake: former Year quit: 1979 Comment: uses cane at times- knee gives out Patient Tobacco Use Status: Never used Tobacco Smoked in Last 30 Days: No Second Hand Smoke Exposure: No Use of substances other than those prescribed or required for medical reasons: No Advance Directives: Yes Advance Directives on File: Yes Advance Directives Date on File: 08/14/21 Do you have a plan to hurt others: No Plan service: No Current occupational status: disabled Current occupation: rt handed Physical Exam Vital Signs: Vital Signs: Last Vital Signs Temp 100.7 F H 03/27/25 20:25 Pulse 115 H 03/27/25 20:25 Resp 17 03/27/25 20:25 BP 134/75 03/27/25 20:25 Pulse Ox 93 03/27/25 20:25 O2 Del Method Room Air 03/27/25 20:25 BMI result Body Mass Index 52.1 Appearance: Alert. Oriented X3. No acute distress. Eyes: Pupils equal, round and reactive to light. ENT: Pharynx normal. Neck: Normal inspection. Neck supple. No lymph nodes noted. No crepitus CVS: Normal heart rate and rhythm. Pulses normal. Normal S1 and S2 Respiratory: No respiratory distress. Breath sounds normal. No Wheezing. No rales Abdomen: Soft and nontender. No rigidity. No distention. good BS x4 Skin: Skin warm and dry. Normal skin color. Normal skin turgor. Extremities: No lower extremity edema. Neurovascular intact to all extremities. No Lacerations. No Rash Neuro: Oriented X 3. No motor deficit. No sensory deficit. Moving all extermities. No slurred speech Medications Administered Discontinued Medications Generic Name Dose Route Start Last Admin Trade Name Destiny PRN Reason Stop Dose Admin Acetaminophen 975 mg 03/27/25 20:44 03/27/25 20:56 Acetaminophen 325 Mg Tablet PO 03/27/25 20:45 975 mg ONCE ONE Administration Ertapenem 1 gm 03/27/25 20:45 03/27/25 20:56 Ertapenem Sodium 1 Gm Vial IVPUSH 03/27/25 20:46 1 gm ONCE ONE Administration Sodium Chloride 1,000 mls @ 999 mls/hr 03/27/25 15:30 03/27/25 17:09 Ns IV 03/27/25 16:30 Infused .Q1H1M YOANDY Infusion Sodium Chloride 1,000 mls @ 999 mls/hr 03/27/25 15:30 03/27/25 19:31 Ns IV 03/27/25 16:30 Infused .Q1H1M YOANDY Infusion Iohexol 100 ml 03/27/25 18:09 03/27/25 18:10 Iohexol 350 Mg/Ml 100 Ml Infus..Btl IV 03/27/25 18:10 100 ml ONCE ONE Administration Medical Decision Making Medical Decision Making [facility] Narrative: Patient is 59-year-old male presents today with generalized malaise weakness poor p.o. intake. He has a history of atrial fibrillation was given Cardizem in route. Feels generalized malaise weakness. Patient CT scan of the abdomen was positive for a right-sided UPJ stone. Urine shows signs of infection. Chest x-ray was negative for pneumonia. Patient is lactate was 1.6. No evidence for severe sepsis. Cultures obtained. IV fluids given. Patient's urine showed a possible UTI. While in the emergency department patient developed a fever 100.7 in the setting of having a right-sided UPJ stone having infected urine has likely infected stone. Started patient on ertapenem as patient has history of ESBL. Patient's case discussed with the hospitalist team. Discussed with urology team. Will take patient to the OR in a.m.. NPO after midnight no anticoagulation Differential Diagnosis Differential Diagnoses: The differential diagnosis associated with the presentation includes Urinary tract infection, kidney stone pyelonephritis pneumonia Admission/Observation Consideration of admission/observation: Escalation of care including admission/observation considered Consult Healthcare Provider Management of the patient was discussed with: Hospitalist and Maintenance Journeyman (Urology) Lab Data [facility] Lab Attestation statement: I reviewed the patient's lab results. 03/27/25 17:42 03/27/25 17:11 Labs: Lab Results 03/27/25 03/27/25 03/27/25 Range/Units 17:11 17:42 20:01 WBC 7.9 (4.8-10.8) X10*3/uL RBC 4.65 (4.60-5.80) X10*6/uL Hgb 15.0 (14.0-18.0) g/dl Hct 45.0 (42.0-52.0) % MCV 96.8 (80.0-98.0) fL MCH 32.3 (27.0-33.0) pg MCHC 33.3 (31.0-36.0) g/dl RDW 14.9 (11.0-16.0) % Plt Count 150 L D (160-400) X10*3/uL MPV 9.7 (9.4-12.4) fL Immature Gran % (Auto) 0.8 H (0.0-0.4) % Neut % (Auto) 85.4 H (45-73) % Lymph % (Auto) 5.3 L (20-40) % [place] % (Auto) 7.1 (2-11) % Eos % (Auto) 0.5 (0-4) % Baso % (Auto) 0.9 (0-2) % Lymph # (Auto) 0.4 L (1.2-4.9) X10*3/uL [place] # (Auto) 0.6 (0.1-1.2) X10*3/uL Eos # (Auto) 0.0 (0.0-0.4) X10*3/uL Baso # (Auto) 0.1 (0.0-0.2) X10*3/uL Abs Immat Gran (auto) 0.06 H (0.00-0.03) X10*3/uL Absolute Neuts (auto) 6.8 (2.0-8.3) x10*3/uL Absolute Nucleated RBC 0.000 (0.0-0.012) X10*3/uL Nucleated RBC % (auto) 0.0 (0.0-0.2) /100WBC Sodium 140 (135-145) mmol/L Potassium 3.7 (3.3-5.1) mmol/L Chloride 105 (96-108) mmol/L Carbon Dioxide 25 (22-29) mmol/L Anion Gap 14 (12-20) BUN 14 (9-16) mg/dL Creatinine 1.03 (0.5-1.4) mg/dL Estim Creat Clear Calc 114.8 Estimated GFR > 60 Random Glucose 97 (60-115) mg/dL Lactic Acid 1.6 (0.5-2.0) mmol/L Calcium 8.5 D (8.4-10.2) mg/dL Total Bilirubin 1.3 H (0.0-1.0) mg/dL Direct Bilirubin 0.7 H (0.0-0.5) mg/dL AST 19 (5-37) U/L ALT 8 (0-40) U/L Alkaline Phosphatase 89 (39-117) U/L Troponin I High Sens 9.4 D (<3.5-35.0) ng/L Total Protein 6.8 (6.5-8.0) g/dL Albumin 3.6 (3.5-5.0) g/dL Lipase 11 (8-78) U/L TSH 1.95 (0.32-4.0) uIU/mL Urine Color Yellow Urine Appearance Clear Urine pH 6.0 (5.0-9.0) Ur Specific [place] >= 1.030 H (1.005-1.025) Urine Protein 30 (1+) H (Neg-Trace) mg/dL Urine Glucose (UA) 500 H (Negative) mg/dL Urine Ketones 15 (Negative) mg/dL Urine Blood Moderate (2+) H (Negative) Urine Nitrite Negative (Negative) Ur Leukocyte Esterase Small (1+) H (Negative) Urine RBC 11-20 H (0-2) /HPF Urine WBC 21-50 H (0-5) /HPF Ur Squamous Epith Cells 0-2 (0-2) /HPF Urine Bacteria 2+ (None Seen) Hyaline Casts 0-2 (0-2) /LPF Urine Opiates Screen Not Detected (Not Detect) Ur Buprenorphine Scrn Not Detected (Not Detect) ng/mL Ur Oxycodone Screen Not Detected (Not Detect) ng/mL Urine Methadone Screen Not Detected (Not Detect) ng/mL Urine Fentanyl Screen Not Detected (Not Detect) Ur Barbiturates Screen Not Detected (Not Detect) Ur Phencyclidine Scrn Not Detected (Not Detect) Ur Amphetamines Screen Not Detected (Not Detect) U Benzodiazepines Scrn Not Detected (Not Detect) Urine Cocaine Screen Not Detected (Not Detect) U Marijuana (THC) Screen Not Detected (Not Detect) Independent Interpretation I performed an independent interpretation of an: CT Scan (Positive kidney stone positive mild hydro on the right side) Radiology Impression Discussion of test interpretation with radiology: I have reviewed the radiologist's reading. External Record Review External record reviewed: Inpatient record Chronic Conditions Atrial fibrillation Social Determinants Patient?s care significantly limited by Social Determinants of Health including: Problems related to primary support group Critical Care Time Critical Care Time Critical Care Time: Yes Total Critical Care Time: 40 Attestation: I have personally provided 40 minutes of critical care time exclusive of time spent on separately billable procedures. ?Time includes review of lab data, radiology results, discussion with consultants, and monitoring for potential decompensation. ?Interventions were performed as documented above Discharge Plan Discharge Clinical Impression: Acute pyelonephritis, Kidney calculi Patient Disposition: Admitted As Inpatient Prescriptions: No Action simethicone [Gas Relief (simethicone)] 125 mg tablet,chewable 125 mg PO BID-QID PRN (Reason: abdominal distention) Qty: 120 2RF zolpidem 10 mg tablet 10 mg PO BEDTIME Qty: 2 0RF lorazepam 1 mg tablet 1 mg PO BEDTIME PRN (Reason: anxiety) Qty: 1 0RF budesonide 3 mg capsule,delayed,extend.release 9 mg PO DAILY Qty: 270 1RF apixaban 5 mg tablet 5 mg PO BID Qty: 180 3RF esomeprazole magnesium 40 mg capsule,delayed release(DR/EC) 40 mg PO DAILY Qty: 90 1RF colesevelam 625 mg tablet 1,250 mg PO BID Qty: 360 0RF Creon 24,000-76,000 -120,000 unit capsule,delayed release(DR/EC) 2 cap PO BID Qty: 100 0RF sucralfate 100 mg/mL suspension 10 ml PO BID PRN (Reason: for pain) Qty: 1000 1RF amiodarone 200 mg tablet 200 mg PO .COMPLEX 30 Days Qty: 70 1RF Rx Instructions: 200 mg orally take 2 tablets BID for 2 weeks, then reduce dose to 1 tablet daily; Stopping Sotalol today. Starting Amiodarone 03/06/25 ferrous sulfate 325 mg (65 mg iron) tablet 1 tab PO DAILY diphenoxylate-atropine 2.5-0.025 mg/5 mL liquid 5 ml PO QID PRN (Reason: Diarrhea) oxycodone 5 mg tablet 5 mg PO Q6H PRN (Reason: Pain (Scale Score 4-6)) montelukast 10 mg tablet 10 mg PO BEDTIME gabapentin 300 mg capsule 300 mg PO TID dapagliflozin propanediol [Farxiga] 5 mg tablet 5 mg PO DAILY oxybutynin chloride 15 mg tablet extended release 24hr 15 mg PO DAILY Qty: 90 3RF sertraline 100 mg tablet 100 mg PO DAILY multivitamin with folic acid [Daily-Brent (with folic acid)] 400 mcg tablet 1 tab PO DAILY calcium carbonate-vitamin D3 600 mg-10 mcg (400 unit) tablet 1 tab PO DAILY rifaximin 550 mg tablet 550 mg PO TID 14 Days Qty: 42 0RF prednisolone acetate 1 % drops,suspension ophthalmic (eye) Gemtesa 75 mg tablet 75 mg PO DAILY Qty: 90 3RF Rx Instructions: take in the afternoon at 3 pm Wegovy 0.25 mg/0.5 mL pen injector 0.25 mg subcut QWEEK Rx Instructions: administer weeks 1 through 4 of therapy nystatin 100,000 unit/gram cream topical BID duloxetine 20 mg capsule,delayed release(DR/EC) 20 mg PO DAILY tamsulosin 0.4 mg capsule 0.4 mg PO DAILY Align (B.infantis) 4 mg capsule 4 mg PO DAILY Qty: 90 2RF Print Language: Latvian
[2025-03-27] MEDS: 0.9 % Sodium Chloride 1,000 ML 999 ML IV ×2 (16:01→16:07)
[2025-03-27 16:04] VITALS: BP 158/86; PULSE 98; RESP 28; O2SAT 94
[2025-03-27 17:38] LABS: Alanine Aminotransferase 8 U/L (0-40); Albumin Level 3.6 g/dL (3.5-5.0); Alkaline Phosphatase 89 U/L (39-117); Anion Gap 14 (12-20); Aspartate Amino Transferase 19 U/L (5-37); Bilirubin Direct 0.7 mg/dL (0.0-0.5); Bilirubin Total 1.3 mg/dL (0.0-1.0); Blood Urea Nitrogen 14 mg/dL (9-16); Calcium 8.5 mg/dL (8.4-10.2); Carbon Dioxide 25 mmol/L (22-29); Chloride 105 mmol/L (96-108); Creatinine Clr Calc Pharmacy 114.8; Estimated Glomerular Filt Rate > 60; Glucose Random 97 mg/dL (60-115); Lipase 11 U/L (8-78); Potassium 3.7 mmol/L (3.3-5.1); Sodium 140 mmol/L (135-145); Total Protein 6.8 g/dL (6.5-8.0)
[2025-03-27 17:47] LABS: MANUAL DIFF FLAG NO
[2025-03-27 17:56] LABS: Basophils Absolute Auto 0.1 X10*3/uL (0.0-0.2); Basophils Percent Auto 0.9 % (0-2); Eosinophils Percent Auto 0.5 % (0-4); Imm Gran Abs Auto 0.06 X10*3/uL (0.00-0.03); Imm Gran Pct Auto 0.8 % (0.0-0.4); Lymphocytes Absolute Auto 0.4 X10*3/uL (1.2-4.9); Lymphocytes Percent Auto 5.3 % (20-40); Mean Corpuscular HGB Conc 33.3 g/dl (31.0-36.0); Mean Corpuscular Hemoglobin 32.3 pg (27.0-33.0); Mean Corpuscular Volume 96.8 fL (80.0-98.0); Mean Platelet Volume 9.7 fL (9.4-12.4); Monocytes Absolute Auto 0.6 X10*3/uL (0.1-1.2); Monocytes Percent Auto 7.1 % (2-11); Neutrophils Absolute Auto 6.8 x10*3/uL (2.0-8.3); Neutrophils Percent Auto 85.4 % (45-73); Platelet Count 150 X10*3/uL (160-400); Red Blood Count 4.65 X10*6/uL (4.60-5.80); Red Cell Distribution Width 14.9 % (11.0-16.0); White Blood Count 7.9 X10*3/uL (4.8-10.8)
[2025-03-27 17:59] LABS: TSH reflex Free T4 1.95 uIU/mL (0.32-4.0)
[2025-03-27 18:00] LABS: Lactic Acid 1.6 mmol/L (0.5-2.0)
[2025-03-27] MEDS: iohexoL 350 MG/ML 100 ML INFUS..BTL IV (18:10)
[2025-03-27 18:18] VITALS: BP 147/93; PULSE 113; RESP 28; TEMP 36.8; O2SAT 94
--- OUTSIDE RECORDS SUMMARY | 2025-03-27 18:35 | XMS_ITS | Clinical Summary ---
Author Organization [facility] Address [address] [place] [address] Care Team Providers Care Rag Baler Name Role Phone Destiny Trinidad MD Primary Care Provider [phone] Steven Ch MD Unavailable [phone] Allergies Active Allergy Reactions Criticality Noted [...] (three) times a day. Active nystatin (MYCOSTATIN) 253452 UNIT/GM cream Apply topically 2 (two) times [...] Dates Next Due Covid-19 MRNA Vaccine - Carrot.mx 12+ (Purple Cap) 10/13/2021 Family History Medical [...] complete this [place] [id number] [facility] MEDICARE [facility] Care Teams Rag Baler Relationship Specialty Start Date End Date Destiny Trinidad MD [address] [address] PCP - General 09/25/21 Steven Ch MD [address] [place] [address] [address] [place] [address] [employer] Supervisor Cardiovascular Disease 09/25/21
[2025-03-27 19:09] LABS: Troponin-I High Sensitivity 9.4 ng/L (<3.5-35.0)
--- NOTE | 2025-03-27 19:31 | PC.NURSE ---
upon assuming care no ivf infusing. completed in mar. pt states incontinent at baseline, incontinent upon entering room. will obtain bladder scan and decide straight cath vs mcgarry cath per MD.
[2025-03-27 20:09] LABS: Appearance Urine Clear; Color Urine Yellow; Glucose Urine UA 500 mg/dL (Negative); Leukocyte Esterase Urine Small (1+) (Negative); Nitrite Urine Negative (Negative); Specific Gravity - Urine >= 1.030 (1.005-1.025); UMIC TRIGGER UACC YES; Urine Blood Moderate (2+) (Negative); Urine Ketones 15 mg/dL (Negative); Urine Protein 30 (1+) mg/dL (Neg-Trace)
[2025-03-27 20:14] LABS: Bacteria Urine 2+ (None Seen); Hyaline Casts Urine 0-2 /LPF (0-2); Squamous Epithelial Cell Urine 0-2 /HPF (0-2); UACC Culture Trigger YES; WBC Urine 21-50 /HPF (0-5)
[2025-03-27 20:16] LABS: Amphetamine Screen Urine Not Detected (Not Detect); Barbiturates, Urine Not Detected (Not Detect); Benzodiazepines Screen Urine Not Detected (Not Detect); Buprenorphine Scr Not Detected (Not Detect); Cannabinoid Screen Urine Not Detected (Not Detect); Cocaine Screen Urine Not Detected (Not Detect); Fentanyl, urine Not Detected (Not Detect); Methadone Screen, Urine Not Detected (Not Detect); Opiate Screen Urine Not Detected (Not Detect); Oxycodone Screen Urine Not Detected (Not Detect); Phencyclidine Screen Urine Not Detected (Not Detect)
[2025-03-27 20:25] VITALS: BP 134/75; PULSE 115; RESP 17; TEMP 38.2; O2SAT 93
[2025-03-27] MEDS: Acetaminophen 325 MG TABLET 975 MG PO (20:56)
[2025-03-27] MEDS: Ertapenem Sodium 1 GM VIAL IVPUSH (20:56)
--- NOTE | 2025-03-27 21:58 | ED_ITS ---
HPI - Chest Pain General Chief Complaint: Chest Pain Stated Complaint: sepsis alert per EMS, rapid Afib, fever, weak Time Seen by Provider: 03/27/25 14:55 Related Data Home Medications ?Medication ?Instructions ?Recorded ?Confirmed montelukast 10 mg tablet 10 mg PO BEDTIME 05/13/21 01/12/25 ferrous sulfate 325 mg (65 mg 1 tab PO DAILY 03/26/22 01/12/25 iron) tablet gabapentin 300 mg capsule 300 mg PO TID 09/30/22 01/12/25 diphenoxylate-atropine 2.5 5 ml PO QID PRN Diarrhea 05/03/23 01/12/25 mg-0.025 mg/5 mL oral liquid oxycodone 5 mg tablet 5 mg PO Q6H PRN Pain (Scale Score 05/03/23 01/12/25 4-6) duloxetine 20 mg capsule,delayed 20 mg PO DAILY 11/12/23 01/12/25 release nystatin 100,000 unit/gram topical topical BID 11/12/23 01/12/25 cream tamsulosin 0.4 mg capsule 0.4 mg PO DAILY 11/12/23 01/12/25 dapagliflozin propanediol 5 mg 5 mg PO DAILY 03/30/24 01/12/25 tablet (Farxiga) calcium 600 mg (as 1 tab PO DAILY 05/08/24 01/12/25 carbonate)-vitamin D3 10 mcg (400 unit) tablet multivitamin with folic acid 400 1 tab PO DAILY 05/08/24 01/12/25 mcg tablet (Daily-Brent (with folic acid)) sertraline 100 mg tablet 100 mg PO DAILY 05/08/24 01/12/25 prednisolone acetate 1 % eye drp ophthalmic (eye) 08/15/24 01/12/25 drops,suspension semaglutide (weight loss) 0.25 0.25 mg subcut QWEEK 01/12/25 01/12/25 mg/0.5 mL subcutaneous pen injector (Chapito) Previous Rx's ?Medication ?Instructions ?Recorded simethicone 125 mg chewable tablet 125 mg PO BID-QID PRN abdominal 07/12/23 (Gas Relief (simethicone)) distention #120 tabs Bifidobacterium infantis 4 mg 4 mg PO DAILY #90 caps 11/12/23 capsule (Align (B.infantis)) lorazepam 1 mg tablet 1 mg PO BEDTIME PRN anxiety #1 tab 04/12/24 zolpidem 10 mg tablet 10 mg PO BEDTIME for sleep study 04/12/24 #2 tabs rifaximin 550 mg tablet 550 mg PO TID 2 weeks #42 tabs 05/08/24 budesonide 3 mg 9 mg (3 x 3 mg) PO DAILY #270 caps 07/26/24 capsule,delayed,extended release oxybutynin chloride 15 mg 15 mg PO DAILY #90 tabs 08/09/24 tablet,extended release 24 hr apixaban 5 mg tablet 5 mg PO BID #180 tabs 09/04/24 esomeprazole magnesium 40 mg 40 mg PO DAILY #90 caps 11/06/24 capsule,delayed release vibegron 75 mg tablet (Gemtesa) 75 mg PO DAILY #90 tabs 12/20/24 colesevelam 625 mg tablet 1,250 mg (2 x 625 mg) PO BID for 01/02/25 diarrhea #360 tabs [id number]-[id number]-pzolqje 2 cap PO BID #100 caps 01/02/25 24,000-76,000-120,000 unit capsule,delayed rel (Creon) sucralfate 100 mg/mL oral 10 ml PO BID PRN for pain #1,000 mL 02/13/25 suspension amiodarone 200 mg tablet 200 mg PO .COMPLEX 30 days #70 tabs 03/02/25 Allergies Allergy/AdvReac Type Severity Reaction Status Date / Time cefaclor [From [facility]] Allergy Severe hives Verified 03/27/25 15:05 epanolol Allergy Severe hives Verified 03/27/25 15:05 misoprostol Allergy Severe rash Verified 03/27/25 15:05 NSAIDS (Non-Steroidal Allergy Severe GI upset Verified 03/27/25 15:05 Anti-Inflamma Penicillins Allergy Severe hives, Verified 03/27/25 15:05 rash, itching Sulfa (Sulfonamide Allergy Severe Hives Verified 03/27/25 15:05 Antibiotics) Cephalosporins Allergy Intermediate hives Verified 03/27/25 15:05 amoxicillin Allergy Mild rash Verified 03/27/25 15:05 vancomycin Allergy Mild itching Verified 03/27/25 15:05 clindamycin AdvReac Intermediate Rash Verified 03/27/25 15:05 PMFSH Past Medical History Medical History Nocturnal hypoxemia Somnolence, daytime Loud snoring SHAYLA (obstructive sleep apnea) Paroxysmal A-fib Atrial flutter PAF (paroxysmal atrial fibrillation) On beta paty at home On anticoagulant therapy SHAYLA on CPAP Bronchial asthma Restrictive lung disease Migration of vascular stent Pulmonary embolus Family history of stent Uncomplicated opioid dependence Lymphedema Lumbar disc disease Venous stasis Hyperlipidemia Neurogenic bladder Dyspnea Lumbar disc prolapse with root compression History of kidney stones GERD (gastroesophageal reflux disease) OA (osteoarthritis) Morbid obesity Asthma Depression Essential hypertension Surgical History Hx of cervical spine surgery S/P IVC filter S/P appendectomy Hx of colonoscopy History of esophagogastroduodenoscopy (EGD) Hx of eye surgery Hx of gastric bypass Family History Family History Mother Diabetes Father Brain cancer Sister Diabetes Sister Diabetes Sister Diabetes Brother Blind Brother No problems noted. Brother No problems noted. Brother No problems noted. Brother No problems noted. Daughter No problems noted. Daughter Mental health disorder Son Mental health disorder Son No problems noted. Son No problems noted. Social History Social History Household Members: Children Household Members Other:: - 5 kids Housing: House Are you a primary primary care md to a significant other at home: No Do you presently have visiting nurse or other home services: Yes (PURIFICATION DIRECTOR that visits every 3 months) Alcohol intake: former Year quit: 1979 Comment: uses cane at times- knee gives out Patient Tobacco Use Status: Never used Tobacco Smoked in Last 30 Days: No Second Hand Smoke Exposure: No Use of substances other than those prescribed or required for medical reasons: No Advance Directives: Yes Advance Directives on File: Yes Advance Directives Date on File: 08/14/21 Do you have a plan to hurt others: No Plan service: No Current occupational status: disabled Current occupation: rt handed Physical Exam 2 Vital Signs: Vital Signs: Last Vital Signs Temp 100.7 F H 03/27/25 20:25 Pulse 115 H 03/27/25 20:25 Resp 17 03/27/25 20:25 BP 134/75 03/27/25 20:25 Pulse Ox 93 03/27/25 20:25 O2 Del Method Room Air 03/27/25 20:25 BMI result Body Mass Index 52.1 Medications Administered Discontinued Medications Generic Name Dose Route Start Last Admin Trade Name Taq PRN Reason Stop Dose Admin Acetaminophen 975 mg 03/27/25 20:44 03/27/25 20:56 Acetaminophen 325 Mg Tablet PO 03/27/25 20:45 975 mg ONCE ONE Administration Ertapenem 1 gm 03/27/25 20:45 03/27/25 20:56 Ertapenem Sodium 1 Gm Vial IVPUSH 03/27/25 20:46 1 gm ONCE ONE Administration Sodium Chloride 1,000 mls @ 999 mls/hr 03/27/25 15:30 03/27/25 17:09 Ns IV 03/27/25 16:30 Infused .Q1H1M YOANDY Infusion Sodium Chloride 1,000 mls @ 999 mls/hr 03/27/25 15:30 03/27/25 19:31 Ns IV 03/27/25 16:30 Infused .Q1H1M YOANDY Infusion Iohexol 100 ml 03/27/25 18:09 03/27/25 18:10 Iohexol 350 Mg/Ml 100 Ml Infus..Btl IV 03/27/25 18:10 100 ml ONCE ONE Administration Medical Decision Making Lab Data 03/27/25 17:42 03/27/25 17:11 Labs: Lab Results 03/27/25 03/27/25 03/27/25 Range/Units 17:11 17:42 20:01 WBC 7.9 (4.8-10.8) X10*3/uL RBC 4.65 (4.60-5.80) X10*6/uL Hgb 15.0 (14.0-18.0) g/dl Hct 45.0 (42.0-52.0) % MCV 96.8 (80.0-98.0) fL MCH 32.3 (27.0-33.0) pg MCHC 33.3 (31.0-36.0) g/dl RDW 14.9 (11.0-16.0) % Plt Count 150 L D (160-400) X10*3/uL MPV 9.7 (9.4-12.4) fL Immature Gran % (Auto) 0.8 H (0.0-0.4) % Neut % (Auto) 85.4 H (45-73) % Lymph % (Auto) 5.3 L (20-40) % [place] % (Auto) 7.1 (2-11) % Eos % (Auto) 0.5 (0-4) % Baso % (Auto) 0.9 (0-2) % Lymph # (Auto) 0.4 L (1.2-4.9) X10*3/uL [place] # (Auto) 0.6 (0.1-1.2) X10*3/uL Eos # (Auto) 0.0 (0.0-0.4) X10*3/uL Baso # (Auto) 0.1 (0.0-0.2) X10*3/uL Abs Immat Gran (auto) 0.06 H (0.00-0.03) X10*3/uL Absolute Neuts (auto) 6.8 (2.0-8.3) x10*3/uL Absolute Nucleated RBC 0.000 (0.0-0.012) X10*3/uL Nucleated RBC % (auto) 0.0 (0.0-0.2) /100WBC Sodium 140 (135-145) mmol/L Potassium 3.7 (3.3-5.1) mmol/L Chloride 105 (96-108) mmol/L Carbon Dioxide 25 (22-29) mmol/L Anion Gap 14 (12-20) BUN 14 (9-16) mg/dL Creatinine 1.03 (0.5-1.4) mg/dL Estim Creat Clear Calc 114.8 Estimated GFR > 60 Random Glucose 97 (60-115) mg/dL Lactic Acid 1.6 (0.5-2.0) mmol/L Calcium 8.5 D (8.4-10.2) mg/dL Total Bilirubin 1.3 H (0.0-1.0) mg/dL Direct Bilirubin 0.7 H (0.0-0.5) mg/dL AST 19 (5-37) U/L ALT 8 (0-40) U/L Alkaline Phosphatase 89 (39-117) U/L Troponin I High Sens 9.4 D (<3.5-35.0) ng/L Total Protein 6.8 (6.5-8.0) g/dL Albumin 3.6 (3.5-5.0) g/dL Lipase 11 (8-78) U/L TSH 1.95 (0.32-4.0) uIU/mL Urine Color Yellow Urine Appearance Clear Urine pH 6.0 (5.0-9.0) Ur Specific [place] >= 1.030 H (1.005-1.025) Urine Protein 30 (1+) H (Neg-Trace) mg/dL Urine Glucose (UA) 500 H (Negative) mg/dL Urine Ketones 15 (Negative) mg/dL Urine Blood Moderate (2+) H (Negative) Urine Nitrite Negative (Negative) Ur Leukocyte Esterase Small (1+) H (Negative) Urine RBC 11-20 H (0-2) /HPF Urine WBC 21-50 H (0-5) /HPF Ur Squamous Epith Cells 0-2 (0-2) /HPF Urine Bacteria 2+ (None Seen) Hyaline Casts 0-2 (0-2) /LPF Urine Opiates Screen Not Detected (Not Detect) Ur Buprenorphine Scrn Not Detected (Not Detect) ng/mL Ur Oxycodone Screen Not Detected (Not Detect) ng/mL Urine Methadone Screen Not Detected (Not Detect) ng/mL Urine Fentanyl Screen Not Detected (Not Detect) Ur Barbiturates Screen Not Detected (Not Detect) Ur Phencyclidine Scrn Not Detected (Not Detect) Ur Amphetamines Screen Not Detected (Not Detect) U Benzodiazepines Scrn Not Detected (Not Detect) Urine Cocaine Screen Not Detected (Not Detect) U Marijuana (THC) Screen Not Detected (Not Detect) Discharge Plan Discharge Clinical Impression: Acute pyelonephritis, Kidney calculi Patient Disposition: Admitted As Inpatient Print Language: Faroese
--- NOTE | 2025-03-27 22:02 | PM.IMHP ---
History of Present Illness Date of Service: 03/27/25 Attending physician on admission: Macie Solano Chief Complaint: poor appetite Patient is a 59-year-old male with past medical history nephrolithiasis, urinary incontinence, UTI with history of ESBL, SHAYLA, diastolic heart failure, IBS with chronic diarrhea, proximal atrial fibrillation on apixaban, history of gastric bypass, restrictive lung disease/asthma, peripheral vascular disease, pancreatic insufficiency on Creon, GERD, depression, BPH was brought in by ambulance secondary to failure to thrive at home since Wednesday03/25/2025. Patient reports he lost appetite and felt extremely weak which progressed since Wednesday. Patient was seen by EMS at home and was found to be in atrial fibrillation RVR. Patient does have a history of AFib and has been compliant with his medications even though he had been feeling well. Patient received Cardizem in the ambulance and rate is currently controlled. Patient did report chest pain at the time but states currently that chest pain has resolved. Upon interviewing patient for admission to the hospital, patient presented diaphoretic but alert and orientated x3. Patient's temp still abnormal with an axillary temp of 99.7 degrees. Max temp in the ED 100.7. Blood cultures x2 were drawn in the ED. urinalysis noted evidence of urinary tract infection. Patient was started on ertapenem due to known ESBL history with previous culture. Abdominal CT noted a right ureteropelvic junction calculus associated with right hydronephrosis. In addition suggestion of right pyelonephritis seen. Incidentally patient has a small hiatal hernia. Emergency room provider contacted Urology and spoke with Dr. Rust. Goal is to make patient NPO after midnight. And patient will likely undergo intervention in the morning. Currently we are holding patient's apixaban. Review of Systems Review of Systems: Patient continues to complain of weakness, fatigue as patient has not slept in the last 3 days. Patient is requesting assistance with sleep aid. In addition patient would like to try fluids noting that he will be NPO after midnight. Patient currently denies any chest pain, nausea or vomiting. Patient is not having any abdominal pain but does report ongoing minimal right flank pain patient has chronic discoloration of bilateral lower extremities. Patient reports history of wound in the right lower extremity which is currently healed. Patient denies any open wounds at this time. Yes all other systems are reviewed and are negative [facility] Medical History Nocturnal hypoxemia Somnolence, daytime Loud snoring SHAYLA (obstructive sleep apnea) Paroxysmal A-fib Atrial flutter PAF (paroxysmal atrial fibrillation) On beta paty at home On anticoagulant therapy SHAYLA on CPAP Bronchial asthma Restrictive lung disease Migration of vascular stent Pulmonary embolus Family history of stent Uncomplicated opioid dependence Lymphedema Lumbar disc disease Venous stasis Hyperlipidemia Neurogenic bladder Dyspnea Lumbar disc prolapse with root compression History of kidney stones GERD (gastroesophageal reflux disease) OA (osteoarthritis) Morbid obesity Asthma Depression Essential hypertension Functional capacity: uses cane/walker (Patient normally uses a cane to ambulate at home) Family History Mother Diabetes Father Brain cancer Sister Diabetes Sister Diabetes Sister Diabetes Brother Blind Brother No problems noted. Brother No problems noted. Brother No problems noted. Brother No problems noted. Daughter No problems noted. Daughter Mental health disorder Son Mental health disorder Son No problems noted. Son No problems noted. Surgical History Hx of cervical spine surgery S/P IVC filter S/P appendectomy Hx of colonoscopy History of esophagogastroduodenoscopy (EGD) Hx of eye surgery Hx of gastric bypass Social History Household Members: Children Household Members Other:: - 5 kids Housing: House Are you a primary wound care technician to a significant other at home: No Do you presently have visiting nurse or other home services: Yes (DIRECTOR OF INFECTION CONTROL that visits every 3 months) Alcohol intake: former Year quit: 1979 Comment: uses cane at times- knee gives out Patient Tobacco Use Status: Never used Tobacco Smoked in Last 30 Days: No Second Hand Smoke Exposure: No Use of substances other than those prescribed or required for medical reasons: No Advance Directives: Yes Advance Directives on File: Yes Advance Directives Date on File: 08/14/21 Do you have a plan to hurt others: No Plan service: No Current occupational status: disabled Current occupation: rt handed Ebola Risk: Travel/Contact With Anyone From Affected Area/s: No Has Patient Experienced Ebola Symptoms: No Meds Allergies Allergy/AdvReac Type Severity Reaction Status Date / Time cefaclor [From [facility]] Allergy Severe hives Verified 03/27/25 15:05 epanolol Allergy Severe hives Verified 03/27/25 15:05 misoprostol Allergy Severe rash Verified 03/27/25 15:05 NSAIDS (Non-Steroidal Allergy Severe GI upset Verified 03/27/25 15:05 Anti-Inflamma Penicillins Allergy Severe hives, Verified 03/27/25 15:05 rash, itching Sulfa (Sulfonamide Allergy Severe Hives Verified 03/27/25 15:05 Antibiotics) Cephalosporins Allergy Intermediate hives Verified 03/27/25 15:05 amoxicillin Allergy Mild rash Verified 03/27/25 15:05 vancomycin Allergy Mild itching Verified 03/27/25 15:05 clindamycin AdvReac Intermediate Rash Verified 03/27/25 15:05 Active Medications: Current Medications Albuterol/Ipratropium (Albuterol/Iprat 2.5/0.5mg 3 Ml Ampul.Neb) 3 ml INHALE Q4H PRN PRN Reason: Shortness of Breath/Wheezing Ondansetron HCl (Ondansetron Hcl 4 Mg/2 Ml Vial) 4 mg IVPUSH Q8H PRN PRN Reason: Nausea and Vomiting Senna (Sennosides 8.6 Mg Tablet) 17.2 mg PO BEDTIME YOANDY Sodium Chloride (0.9 % Sodium Chloride Flush 3 Ml Syringe) 3 ml [facility]FLUSH [facility] Home Medications ?Medication ?Instructions ?Recorded ?Confirmed ?Last Taken ?Type oxycodone 5 mg tablet 5 mg PO Q6H PRN Pain (Scale Score 05/03/23 03/27/25 Unknown History 4-6) tamsulosin 0.4 mg capsule 0.4 mg PO DAILY 11/12/23 03/27/25 03/25/25 History calcium 600 mg (as 1 tab PO DAILY 05/08/24 03/27/25 03/25/25 History carbonate)-vitamin D3 10 mcg (400 unit) tablet multivitamin with folic acid 400 1 tab PO DAILY 05/08/24 03/27/25 03/25/25 History mcg tablet (Daily-Brent (with folic acid)) sertraline 100 mg tablet 100 mg PO DAILY 05/08/24 03/27/25 03/25/25 History amiodarone 200 mg tablet 200 mg PO DAILY 03/27/25 03/27/25 03/25/25 History dapagliflozin propanediol 10 mg 10 mg PO DAILY 03/27/25 03/27/25 03/25/25 History tablet (Farxiga) iron,carbonyl 65 mg-vitamin C 125 1 tab PO DAILY 03/27/25 03/27/25 03/25/25 History mg tablet,delayed release (Vitron-C) omeprazole 40 mg capsule,delayed 40 mg PO DAILY 03/27/25 03/27/25 03/25/25 History release vibegron 75 mg tablet (Gemtesa) 75 mg PO DAILY 03/27/25 03/27/25 03/25/25 History Physical Exam Vital Signs and Narrative: Vital Signs: Last Vital Signs Temp 100.7 F H 03/27/25 20:25 Pulse 115 H 03/27/25 20:25 Resp 17 03/27/25 20:25 BP 134/75 03/27/25 20:25 Pulse Ox 93 03/27/25 20:25 O2 Del Method Room Air 03/27/25 20:25 BMI result Body Mass Index 52.1 Alert and orientated X3, somewhat distressed over lack of sleep. Patient is able to answer questions appropriately regarding medical history and HPI. Neuro: CN II-X11 intact, no deficits, visual acuity intact EYES: PERRLA, EOM intact, sclerae nonicteric, conjunctiva pink ENT: hearing intact, no issues with swallowing, uvula midline, lips moist, nares patent no epistaxis Cardiac: Rhythm irregular, rate 90, no murmur, no JVD, mild edema in Lower ext Pulmonary: lungs diminished bilaterally Abdominal: BS active in all 4 quadrants, no guarding, tenderness, rebounding, obesity MSK: strength 3/5 upper and lower extremities : no CVA tenderness no bladder distension Extremities: Mild edema in lower extremities, PT and DP pulses palpable, noted chronic discoloration bilateral lower extremities Psych: mood flap, judgement and insight good Skin: Redness noted under patient's folds in both the abdomen and upper extremities. Results Labs 03/27/25 17:42 03/27/25 17:11 Labs: Laboratory Results - last 24 hr 03/27/25 03/27/25 03/27/25 17:11 17:42 20:01 MCV 96.8 MCH 32.3 MCHC 33.3 RDW 14.9 Plt Count 150 L D MPV 9.7 Immature Gran % (Auto) 0.8 H Neut % (Auto) 85.4 H Lymph % (Auto) 5.3 L [place] % (Auto) 7.1 Eos % (Auto) 0.5 Baso % (Auto) 0.9 Lymph # (Auto) 0.4 L [place] # (Auto) 0.6 Eos # (Auto) 0.0 Baso # (Auto) 0.1 Abs Immat Gran (auto) 0.06 H Absolute Neuts (auto) 6.8 Absolute Nucleated RBC 0.000 Nucleated RBC % (auto) 0.0 Anion Gap 14 Estim Creat Clear Calc 114.8 Estimated GFR > 60 Random Glucose 97 Lactic Acid 1.6 Calcium 8.5 D Total Bilirubin 1.3 H Direct Bilirubin 0.7 H AST 19 ALT 8 Alkaline Phosphatase 89 Troponin I High Sens 9.4 D Total Protein 6.8 Albumin 3.6 Lipase 11 TSH 1.95 Urine Color Yellow Urine Appearance Clear Urine pH 6.0 Ur Specific [place] >= 1.030 H Urine Protein 30 (1+) H Urine Glucose (UA) 500 H Urine Ketones 15 Urine Blood Moderate (2+) H Urine Nitrite Negative Ur Leukocyte Esterase Small (1+) H Urine RBC 11-20 H Urine WBC 21-50 H Ur Squamous Epith Cells 0-2 Urine Bacteria 2+ Hyaline Casts 0-2 Urine Opiates Screen Not Detected Ur Buprenorphine Scrn Not Detected Ur Oxycodone Screen Not Detected Urine Methadone Screen Not Detected Urine Fentanyl Screen Not Detected Ur Barbiturates Screen Not Detected Ur Phencyclidine Scrn Not Detected Ur Amphetamines Screen Not Detected U Benzodiazepines Scrn Not Detected Urine Cocaine Screen Not Detected U Marijuana (THC) Screen Not Detected ECG Attestation: I personally reviewed and interpreted this ECG as follows: (AFib) Prior ECG tracings: available for review Imaging Radiologist's Impressions: Impressions Chest X-Ray 03/27/25 14:33 IMPRESSION: No active pulmonary disease. Mild cardiac enlargement.. Electronically signed by: Jerry Garcia MD 03/27/2025 03:[address] IMPRESSION: 1. No acute intracranial findings. CT abdomen and pelvis IMPRESSION: 1. Right ureteropelvic junction calculus associated with right hydronephrosis. 2. Findings suggestive of right pyelonephritis. Correlation with urinalysis recommended. 3. Small hiatal hernia. Assessment and Plan (1) Acute pyelonephritis: Status: Acute Plan Patient is a 59-year-old male with past medical history nephrolithiasis, urinary incontinence, UTI with history of ESBL, SHAYLA, diastolic heart failure, IBS with chronic diarrhea, proximal atrial fibrillation on apixaban, history of gastric bypass, restrictive lung disease/asthma, peripheral vascular disease, pancreatic insufficiency on Creon, GERD, depression, BPH is being admitted with evidence of sepsis secondary to pyelonephritis from a right ureteropelvic junction calculus. Patient has noted right hydronephrosis with normal renal function at this time. Sepsis -source ureteropelvic calculus with evidence of pyelonephritis -patient is started on ertapenem with history of ESBL -ID consulted -lactic acid 1.6 -no leukocytosis -noted fever and tachycardia/ AFib RVR -telemetry -follow blood cultures and urine culture Pyelonephritis/ right ureteropelvic junction calculus/ right renal hydronephrosis -urology has been consulted -patient NPO after midnight -apixaban held as patient will undergo procedure likely with Urology in the a.m. -Julissa wick in place, strict I's and O's -ertapenem continues, ID consulted -blood cultures and urine culture pending, UA high suspicion for UTI -acetaminophen PRN -IVP morphine for flank pain -IV fluids continue -trend BNP, monitor renal function closely AFib RVR -rate responded to IV Cardizem in the ambulance. -continue amiodarone, liver function within normal limits -apixaban has been held as patient will undergo procedure with Urology in the a.m. -telemetry -rate currently controlled GERD -Protonix IV Chronic skin breakdown -nystatin powder to be applied to skin folds where red rash is present. -no other chronic open wounds found or reported SHAYLA -patient declined CPAP -continuous CO2 monitoring ordered BPH -Patient normally on tamsulosin DVT prophylaxis: Held due to possible procedure in the a.m. PPI prophylaxis: Protonix IV Med rec pending Full code status Quality Stroke Does the patient have a stroke diagnosis?: No Reason for No Anti-thrombotic by Day Two: Contraindicated VTE Prior VTE?: No VTE Risk Level:: Medical - moderate - high VTE Device Contraindication: N/A - Device Ordered VTE Drug Contraindication: Treatment Not Indicated
--- NOTE | 2025-03-27 22:28 | PHA.MEDREC ---
Addendum entered by Sarmad Roger [facility] 03/27/25 22:46: med rec reviewed Original Note: Pharmacy Consult ? Medication Reconciliation Pharmacy has completed the medication reconciliation. Spoke to patient to confirm med list. Patient states he no longer takes Bifidobacterium infrants 4 mg, Budesonide 3 mg, Lomotil, Duloxetine 20 mg, Esomeprazole 40 mg, Lorazepam 1 mg, Montelukast 10 mg, Nystatin cream, Rifaximin 500 mg, Semaglutide 0.25mg, Sotalol 120 mg, and Zolpidem 10 mg. Patient states he is taking Gabapentin 300 mg, however last fill date was April 2024. left off med rec. Patient says he last had his medications Wednesday03/25/25
[2025-03-27 22:56] VITALS: TEMP 36.9
[2025-03-27 23:06] VITALS: BP 124/82; PULSE 103; RESP 20; TEMP 37; O2SAT 94
[2025-03-28] VITALS (18 sets, daily range): BP systolic 97–175; BP diastolic 56–102; PULSE 84–115; RESP 15–20; TEMP 36.5–37.9; O2SAT 91–98; BMI 52.5
[2025-03-28] MEDS: Lactated Ringers 500 ML 50 ML IV (00:42)
[2025-03-28] MEDS: Lactated Ringers 1,000 ML 100 ML IVCONT ×3 (00:42→21:25)
[2025-03-28] MEDS: Melatonin 3 MG TABLET 9 MG PO (00:43)
[2025-03-28] MEDS: Nystatin Powder 15 GM BOTTLE 1 APPL TOPICAL ×2 (00:43→08:26)
[2025-03-28] MEDS: Acetaminophen 1,000 MG/100 ML PIGGYBACK 400 MG IV (00:43)
--- NOTE | 2025-03-28 03:30 | PC.NURSE ---
BATTERY CHARGER Marga made aware of BP. states will order albumin.
[2025-03-28] MEDS: Albumin Human 25 % 100 ML 133.33 ML IV ×2 (04:08→05:09)
[2025-03-28 05:25] LABS: MANUAL DIFF FLAG NO
[2025-03-28 05:30] LABS: Basophils Absolute Auto 0.1 X10*3/uL (0.0-0.2); Basophils Percent Auto 0.8 % (0-2); Eosinophils Absolute Auto 0.2 X10*3/uL (0.0-0.4); Eosinophils Percent Auto 2.4 % (0-4); Hematocrit 42.1 % (42.0-52.0); Hemoglobin 13.7 g/dl (14.0-18.0); Imm Gran Abs Auto 0.03 X10*3/uL (0.00-0.03); Imm Gran Pct Auto 0.5 % (0.0-0.4); Lymphocytes Absolute Auto 0.7 X10*3/uL (1.2-4.9); Lymphocytes Percent Auto 10.7 % (20-40); Mean Corpuscular HGB Conc 32.5 g/dl (31.0-36.0); Mean Corpuscular Hemoglobin 31.5 pg (27.0-33.0); Mean Corpuscular Volume 96.8 fL (80.0-98.0); Mean Platelet Volume 10.1 fL (9.4-12.4); Monocytes Absolute Auto 0.7 X10*3/uL (0.1-1.2); Monocytes Percent Auto 11.5 % (2-11); Neutrophils Absolute Auto 4.7 x10*3/uL (2.0-8.3); Neutrophils Percent Auto 74.1 % (45-73); Platelet Count 144 X10*3/uL (160-400); Red Blood Count 4.35 X10*6/uL (4.60-5.80); Red Cell Distribution Width 14.9 % (11.0-16.0); White Blood Count 6.4 X10*3/uL (4.8-10.8)
[2025-03-28 05:54] LABS: Alanine Aminotransferase 6 U/L (0-40); Albumin Level 3.2 g/dL (3.5-5.0); Alkaline Phosphatase 76 U/L (39-117); Anion Gap 13 (12-20); Aspartate Amino Transferase 18 U/L (5-37); Bilirubin Total 0.8 mg/dL (0.0-1.0); Blood Urea Nitrogen 15 mg/dL (9-16); Calcium 8.1 mg/dL (8.4-10.2); Carbon Dioxide 23 mmol/L (22-29); Chloride 108 mmol/L (96-108); Creatinine Clr Calc Pharmacy 113.7; Estimated Glomerular Filt Rate > 60; Glucose Random 82 mg/dL (60-115); Potassium 3.3 mmol/L (3.3-5.1); Sodium 141 mmol/L (135-145); Total Protein 6.2 g/dL (6.5-8.0)
[2025-03-28] MEDS: Pantoprazole Sodium 40 MG/10 ML VIAL IVPUSH (07:28)
--- NOTE | 2025-03-28 07:48 | PC.NURSE ---
Assumed care of pt approx 0700, resting comfortably in bed with no apparent s/s of distress. IVF infusing per MAR. VSS. POC ongoing
--- NOTE | 2025-03-28 10:39 | P.CNUR_ITS ---
History of Present Illness Consult details Consult date: 03/28/25 Narrative: CC: Right Pyelonephritis 59-year-old male prior history nephrolithiasis and UTI with ESBL Presentation by ambulance with failure to thrive Had lost appetite for past 3 days and felt weak Investigations - UA positive leuks, positive bacteria, negative nitrites - creatinine normal, WBC 6.4 - blood culture - preliminary Gram-positive rods Imaging - CT - Moderate right perinephric fat stranding. Multiple ill-defined regions of hypodensity within the right renal parenchyma. Nonobstructing 4 mm calculus within the right interpolar kidney posteriorly. Nonobstructing punctate calculus within the superior pole right kidney. Mild right hydronephrosis. Right ureteropelvic junction calculus measuring 3 mm. Recommend cystoscopy, right retrograde, right stent placement Review of Systems 2 Constitutional: Constitutional: Reports as per HPI and Reports no additional constitutional complaints Cardiovascular: Cardiovascular: Reports as per HPI and Reports no additional cardiovascular complaints Respiratory: Respiratory: Reports as per HPI and Reports no additional respiratory complaints Gastrointestinal: Gastrointestinal: Reports as per HPI and Reports no additional gastrointestinal complaints Genitourinary: Genitourinary: Reports as per HPI Musculoskeletal: Musculoskeletal: Reports no additional musculoskeletal complaints and Reports as per HPI Neurologic: Reports system reviewed and no additional complaints, except as documented and Reports as per HPI COUNT INCLUDES [facility] Past Medical History Medical History Nocturnal hypoxemia Somnolence, daytime Loud snoring SHAYLA (obstructive sleep apnea) Paroxysmal A-fib Atrial flutter PAF (paroxysmal atrial fibrillation) On beta paty at home On anticoagulant therapy SHAYLA on CPAP Bronchial asthma Restrictive lung disease Migration of vascular stent Pulmonary embolus Family history of stent Uncomplicated opioid dependence Lymphedema Lumbar disc disease Venous stasis Hyperlipidemia Neurogenic bladder Dyspnea Lumbar disc prolapse with root compression History of kidney stones GERD (gastroesophageal reflux disease) OA (osteoarthritis) Morbid obesity Asthma Depression Essential hypertension Family History Family History Mother Diabetes Father Brain cancer Sister Diabetes Sister Diabetes Sister Diabetes Brother Blind Brother No problems noted. Brother No problems noted. Brother No problems noted. Brother No problems noted. Daughter No problems noted. Daughter Mental health disorder Son Mental health disorder Son No problems noted. Son No problems noted. Surgical History Surgical History Hx of cervical spine surgery S/P IVC filter S/P appendectomy Hx of colonoscopy History of esophagogastroduodenoscopy (EGD) Hx of eye surgery Hx of gastric bypass Social History Social History Household Members: Children Household Members Other:: - 5 kids Housing: House Are you a primary intensive care nurse to a significant other at home: No Do you presently have visiting nurse or other home services: Yes ([employer] that visits every 3 months) Alcohol intake: former Year quit: 1979 Comment: uses cane at times- knee gives out Patient Tobacco Use Status: Never used Tobacco Smoked in Last 30 Days: No Second Hand Smoke Exposure: No Use of substances other than those prescribed or required for medical reasons: No Advance Directives: Yes Advance Directives on File: Yes Advance Directives Date on File: 08/14/21 Do you have a plan to hurt others: No Plan service: No Current occupational status: disabled Current occupation: rt handed Travel History Ebola Risk: Travel/Contact With Anyone From Affected Area/s: No Has Patient Experienced Ebola Symptoms: No Meds Allergies Allergy/AdvReac Type Severity Reaction Status Date / Time cefaclor [From [facility]] Allergy Severe hives Verified 03/27/25 15:05 epanolol Allergy Severe hives Verified 03/27/25 15:05 misoprostol Allergy Severe rash Verified 03/27/25 15:05 NSAIDS (Non-Steroidal Allergy Severe GI upset Verified 03/27/25 15:05 Anti-Inflamma Penicillins Allergy Severe hives, Verified 03/27/25 15:05 rash, itching Sulfa (Sulfonamide Allergy Severe Hives Verified 03/27/25 15:05 Antibiotics) Cephalosporins Allergy Intermediate hives Verified 03/27/25 15:05 amoxicillin Allergy Mild rash Verified 03/27/25 15:05 vancomycin Allergy Mild itching Verified 03/27/25 15:05 clindamycin AdvReac Intermediate Rash Verified 03/27/25 15:05 Active Medications: Current Medications Albuterol/Ipratropium (Albuterol/Iprat 2.5/0.5mg 3 Ml Ampul.Neb) 3 ml INHALE Q4H PRN PRN Reason: Shortness of Breath/Wheezing Amiodarone HCl (Amiodarone Hcl 200 Mg Tablet) 200 mg PO DAILY [facility] Lipase/Protease/Amylase (Lipase/Prot/Amylase 24/76/120k 1 Cap Capsule.Dr) 2 cap PO BID [facility] Ertapenem (Ertapenem Sodium 1 Gm Vial) 1 gm IVPUSH DAILY ONE Stop: 03/28/25 20:46 Lactated Ringer's (Lr) 1,000 mls @ 100 mls/hr IVCONT .Q10H [facility] Last Admin: 03/28/25 09:58 Dose: 100 mls/hr Morphine Sulfate (Morphine Sulfate 2 Mg/Ml Cartridge) 1 mg IVPUSH Q3H PRN; Protocol PRN Reason: Pain, Severe (Pain Scale 7-10) Multivitamins/Vitamin C (Multivitamin Tablet) 1 tab PO DAILY [facility] Non-Formulary Medication (Colesevelam) 1,250 mg PO BID [facility] Nystatin (Nystatin Powder 15 Gm Bottle) 1 appl TOPICAL BID [facility]; Protocol Last Admin: 03/28/25 08:26 Dose: 1 appl Ondansetron HCl (Ondansetron Hcl 4 Mg/2 Ml Vial) 4 mg IVPUSH Q8H PRN PRN Reason: Nausea and Vomiting Oxybutynin Chloride (Oxybutynin Chloride Er 5 Mg Tab.Er.24) 15 mg PO DAILY [facility] Oxycodone HCl (Oxycodone Hcl Immed Release 5 Mg Tablet) 5 mg PO Q6H PRN PRN Reason: Pain (Scale Score 4-6) Pantoprazole Sodium (Pantoprazole Sodium 40 Mg/10 Ml Vial) 40 mg IVPUSH DAILY@0630 [facility] Last Admin: 03/28/25 07:28 Dose: 40 mg Senna (Sennosides 8.6 Mg Tablet) 17.2 mg PO BEDTIME [facility] Sertraline HCl (Sertraline Hcl 100 Mg Tablet) 100 mg PO DAILY [facility] Simethicone (Simethicone 80 Mg Tab.Chew) 160 mg PO BID PRN PRN Reason: abdominal distention Sodium Chloride (0.9 % Sodium Chloride Flush 3 Ml Syringe) 3 ml IVFLUSH QSHIFT [facility] Last Admin: 03/28/25 07:29 Dose: Not Given Tamsulosin HCl (Tamsulosin Hcl 0.4 Mg Capsule) 0.4 mg PO DAILY [facility] Home Medications ?Medication ?Instructions ?Recorded ?Confirmed ?Last Taken ?Type oxycodone 5 mg tablet 5 mg PO Q6H PRN Pain (Scale Score 05/03/23 03/27/25 Unknown History 4-6) tamsulosin 0.4 mg capsule 0.4 mg PO DAILY 11/12/23 03/27/25 03/25/25 History calcium 600 mg (as 1 tab PO DAILY 05/08/24 03/27/25 03/25/25 History carbonate)-vitamin D3 10 mcg (400 unit) tablet multivitamin with folic acid 400 1 tab PO DAILY 05/08/24 03/27/25 03/25/25 History mcg tablet (Daily-Brent (with folic acid)) sertraline 100 mg tablet 100 mg PO DAILY 05/08/24 03/27/25 03/25/25 History amiodarone 200 mg tablet 200 mg PO DAILY 03/27/25 03/27/25 03/25/25 History dapagliflozin propanediol 10 mg 10 mg PO DAILY 03/27/25 03/27/25 03/25/25 History tablet (Farxiga) iron,carbonyl 65 mg-vitamin C 125 1 tab PO DAILY 03/27/25 03/27/25 03/25/25 History mg tablet,delayed release (Vitron-C) omeprazole 40 mg capsule,delayed 40 mg PO DAILY 03/27/25 03/27/25 03/25/25 History release vibegron 75 mg tablet (Gemtesa) 75 mg PO DAILY 03/27/25 03/27/25 03/25/25 History Physical Exam 2 Vital Signs: Vital Signs: Last Vital Signs Temp 98.5 F 03/28/25 07:05 Pulse 92 03/28/25 07:05 Resp 17 03/28/25 07:05 BP 122/74 03/28/25 07:05 Pulse Ox 96 03/28/25 07:05 O2 Del Method Room Air 03/28/25 07:05 BMI result Body Mass Index 52.1 Const: General: cooperative, healthy appearing, comfortable and no acute distress Orientation/consciousness: patient oriented x3 HEENT: Face and sinus: Yes normal facial exam Mouth: moist mucous membranes Neck: Neck: Yes normal visual inspection, Yes full ROM and Yes trachea midline Chest: Chest palpation & inspection: normal inspection of the chest Resp: Effort & Inspection: normal respiratory effort, able to speak in complete sentences and no respiratory distress GI: Inspection: Yes normal to inspection Back/Spine/Pelvis: Cervical Spine: normal cervical lordosis Thoracic/Lumbar Spine: thoracic and lumbar spine normal to inspection Skin: General skin exam: no rashes or lesions noted Neuro: General: patient oriented x3, tone normal and moves all extremities Extrem: General: Yes normal to inspection and Yes capillary refill normal Results Labs 03/28/25 04:01 03/28/25 04:01 Labs: Abnormal lab results 03/27/25 03/27/25 03/27/25 Range/Units 17:11 17:42 20:01 RBC (4.60-5.80) X10*6/uL Hgb (14.0-18.0) g/dl Plt Count 150 L D (160-400) X10*3/uL Immature Gran % (Auto) 0.8 H (0.0-0.4) % Neut % (Auto) 85.4 H (45-73) % Lymph % (Auto) 5.3 L (20-40) % [place] % (Auto) (2-11) % Lymph # (Auto) 0.4 L (1.2-4.9) X10*3/uL Abs Immat Gran (auto) 0.06 H (0.00-0.03) X10*3/uL Calcium (8.4-10.2) mg/dL Total Bilirubin 1.3 H (0.0-1.0) mg/dL Direct Bilirubin 0.7 H (0.0-0.5) mg/dL Total Protein (6.5-8.0) g/dL Albumin (3.5-5.0) g/dL Ur Specific [place] >= 1.030 H (1.005-1.025) Urine Protein 30 (1+) H (Neg-Trace) mg/dL Urine Glucose (UA) 500 H (Negative) mg/dL Urine Blood Moderate (2+) H (Negative) Ur Leukocyte Esterase Small (1+) H (Negative) Urine RBC 11-20 H (0-2) /HPF Urine WBC 21-50 H (0-5) /HPF 03/28/25 Range/Units 04:01 RBC 4.35 L (4.60-5.80) X10*6/uL Hgb 13.7 L (14.0-18.0) g/dl Plt Count 144 L (160-400) X10*3/uL Immature Gran % (Auto) 0.5 H (0.0-0.4) % Neut % (Auto) 74.1 H (45-73) % Lymph % (Auto) 10.7 L (20-40) % [place] % (Auto) 11.5 H (2-11) % Lymph # (Auto) 0.7 L (1.2-4.9) X10*3/uL Abs Immat Gran (auto) (0.00-0.03) X10*3/uL Calcium 8.1 L (8.4-10.2) mg/dL Total Bilirubin (0.0-1.0) mg/dL Direct Bilirubin (0.0-0.5) mg/dL Total Protein 6.2 L (6.5-8.0) g/dL Albumin 3.2 L (3.5-5.0) g/dL Ur Specific [place] (1.005-1.025) Urine Protein (Neg-Trace) mg/dL Urine Glucose (UA) (Negative) mg/dL Urine Blood (Negative) Ur Leukocyte Esterase (Negative) Urine RBC (0-2) /HPF Urine WBC (0-5) /HPF Short CBC 03/27/25 03/28/25 Range/Units 17:42 04:01 WBC 7.9 6.4 (4.8-10.8) X10*3/uL Hgb 15.0 13.7 L (14.0-18.0) g/dl Hct 45.0 42.1 (42.0-52.0) % Plt Count 150 L D 144 L (160-400) X10*3/uL BMP 03/27/25 03/28/25 17:11 04:01 Sodium 140 141 Potassium 3.7 3.3 Chloride 105 108 Carbon Dioxide 25 23 BUN 14 15 Creatinine 1.03 1.04 Calcium 8.5 D 8.1 L Liver Function 03/27/25 03/28/25 Range/Units 17:11 04:01 Total Bilirubin 1.3 H 0.8 (0.0-1.0) mg/dL Direct Bilirubin 0.7 H (0.0-0.5) mg/dL AST 19 18 (5-37) U/L ALT 8 6 (0-40) U/L Alkaline Phosphatase 89 76 (39-117) U/L Albumin 3.6 3.2 L (3.5-5.0) g/dL Urine 03/27/25 Range/Units 20:01 Urine Color Yellow Urine Appearance Clear Urine pH 6.0 (5.0-9.0) Ur Specific [place] >= 1.030 H (1.005-1.025) Urine Protein 30 (1+) H (Neg-Trace) mg/dL Urine Glucose (UA) 500 H (Negative) mg/dL All other labs normal. Assessment and Plan (1) Right renal stone: Status: Acute (2) Pyelonephritis: Status: Acute Plan Risks, benefits and alternatives to therapy were discussed. These include but are not limited to infection, bleeding, damage to local organs and tissues, need for further interventions. Anesthetic risks regarding cardiac arrhythmia, blood clots, and potential mortality were discussed. The patient understands the typical recovery time and the outpatient nature of the procedure. After consideration of these risks the patient gives full informed consent and they wish to move ahead with the procedure. Cystoscopy, right retrograde, right stent placement Procedures Date of Service Date of Service: 03/28/25
--- NOTE | 2025-03-28 13:20 | MHC.CM.PN ---
pt is indepdent lives with his and children he has a ride home qwhen dcd dc plan home n/s
--- NOTE | 2025-03-28 13:21 | MHC.CM.PN ---
pt lives with and 2 children he is independent and has no services pt has his own ride home
[2025-03-28] MEDS: Meropenem 1 GM VIAL IVPUSH ×2 (14:15→23:01)
[2025-03-28] MEDS: Morphine Sulfate 2 MG/ML CARTRIDGE 1 MG IVPUSH (16:45)
--- NOTE | 2025-03-28 17:06 | P.PNIM_ITS ---
Subjective Subjective Date of Service: 03/28/25 Interval History: uti, uretral stone Review of Systems seems has some abd discomfort which is improving no fevers Physical Exam 2 Vital Signs: Vital Signs: Last Vital Signs Temp 100.2 F 03/28/25 16:10 Pulse 115 H 03/28/25 16:49 Resp 16 03/28/25 16:49 BP 173/102 H 03/28/25 16:49 Pulse Ox 96 03/28/25 16:49 O2 Del Method Room Air 03/28/25 16:49 BMI result Body Mass Index 52.1 Appearance: Alert.? Oriented X3.? cvs: rrr, [id number]. res: air entry fair ,no rales or wheezing abd: no rebound or guarding ,nt, bs present. : no cva tenderness ext pulses present , no cyanosis . neuro: axo3 , nonfocal. Objective Data Active Medications Albuterol/Ipratropium (Albuterol/Iprat 2.5/0.5mg 3 Ml Ampul.Neb) 3 ml INHALE Q4H PRN PRN Reason: Shortness of Breath/Wheezing Amiodarone HCl (Amiodarone Hcl 200 Mg Tablet) 200 mg PO DAILY [facility] Lipase/Protease/Amylase (Lipase/Prot/Amylase 24/76/120k 1 Cap Capsule.Dr) 2 cap PO BID [facility] Lactated Ringer's (Lr) 1,000 mls @ 100 mls/hr IVCONT .Q10H [facility] Last Admin: 03/28/25 09:58 Dose: 100 mls/hr Documented By: ANA Meropenem (Meropenem 1 Gm Vial) 1 gm IVPUSH Q8H [facility] Last Admin: 03/28/25 14:15 Dose: 1 gm Documented By: ANA Morphine Sulfate (Morphine Sulfate 2 Mg/Ml Cartridge) 1 mg IVPUSH Q3H PRN; Protocol PRN Reason: Pain, Severe (Pain Scale 7-10) Last Admin: 03/28/25 16:45 Dose: 1 mg Documented By: VIRGEN Multivitamins/Vitamin C (Multivitamin Tablet) 1 tab PO DAILY [facility] Non-Formulary Medication (Colesevelam) 1,250 mg PO BID [facility] Nystatin (Nystatin Powder 15 Gm Bottle) 1 appl TOPICAL BID [facility]; Protocol Last Admin: 03/28/25 08:26 Dose: 1 appl Documented By: ANA Ondansetron HCl (Ondansetron Hcl 4 Mg/2 Ml Vial) 4 mg IVPUSH Q8H PRN PRN Reason: Nausea and Vomiting Oxybutynin Chloride (Oxybutynin Chloride Er 5 Mg Tab.Er.24) 15 mg PO DAILY [facility] Oxycodone HCl (Oxycodone Hcl Immed Release 5 Mg Tablet) 5 mg PO Q6H PRN PRN Reason: Pain (Scale Score 4-6) Pantoprazole Sodium (Pantoprazole Sodium 40 Mg/10 Ml Vial) 40 mg IVPUSH DAILY@0630 [facility] Last Admin: 03/28/25 07:28 Dose: 40 mg Documented By: ANA Senna (Sennosides 8.6 Mg Tablet) 17.2 mg PO BEDTIME [facility] Sertraline HCl (Sertraline Hcl 100 Mg Tablet) 100 mg PO DAILY [facility] Simethicone (Simethicone 80 Mg Tab.Chew) 160 mg PO BID PRN PRN Reason: abdominal distention Sodium Chloride (0.9 % Sodium Chloride Flush 3 Ml Syringe) 3 ml IVFLUSH QSHIFT [facility] Last Admin: 03/28/25 15:39 Dose: Not Given Documented By: ANA Non-Admin Reason: IV Running Tamsulosin HCl (Tamsulosin Hcl 0.4 Mg Capsule) 0.4 mg PO DAILY [facility] Labs 03/28/25 04:01 03/28/25 04:01 Labs: Laboratory Results - last 24 hr 03/27/25 03/27/25 03/27/25 17:11 17:42 20:01 MCV 96.8 MCH 32.3 MCHC 33.3 RDW 14.9 Plt Count 150 L D MPV 9.7 Immature Gran % (Auto) 0.8 H Neut % (Auto) 85.4 H Lymph % (Auto) 5.3 L [place] % (Auto) 7.1 Eos % (Auto) 0.5 Baso % (Auto) 0.9 Lymph # (Auto) 0.4 L [place] # (Auto) 0.6 Eos # (Auto) 0.0 Baso # (Auto) 0.1 Abs Immat Gran (auto) 0.06 H Absolute Neuts (auto) 6.8 Absolute Nucleated RBC 0.000 Nucleated RBC % (auto) 0.0 Anion Gap 14 Estim Creat Clear Calc 114.8 Estimated GFR > 60 Random Glucose 97 Lactic Acid 1.6 Calcium 8.5 D Total Bilirubin 1.3 H Direct Bilirubin 0.7 H AST 19 ALT 8 Alkaline Phosphatase 89 Troponin I High Sens 9.4 D Total Protein 6.8 Albumin 3.6 Lipase 11 TSH 1.95 Urine Color Yellow Urine Appearance Clear Urine pH 6.0 Ur Specific [place] >= 1.030 H Urine Protein 30 (1+) H Urine Glucose (UA) 500 H Urine Ketones 15 Urine Blood Moderate (2+) H Urine Nitrite Negative Ur Leukocyte Esterase Small (1+) H Urine RBC 11-20 H Urine WBC 21-50 H Ur Squamous Epith Cells 0-2 Urine Bacteria 2+ Hyaline Casts 0-2 Urine Opiates Screen Not Detected Ur Buprenorphine Scrn Not Detected Ur Oxycodone Screen Not Detected Urine Methadone Screen Not Detected Urine Fentanyl Screen Not Detected Ur Barbiturates Screen Not Detected Ur Phencyclidine Scrn Not Detected Ur Amphetamines Screen Not Detected U Benzodiazepines Scrn Not Detected Urine Cocaine Screen Not Detected U Marijuana (THC) Screen Not Detected 03/28/25 04:01 MCV 96.8 MCH 31.5 MCHC 32.5 RDW 14.9 Plt Count 144 L MPV 10.1 Immature Gran % (Auto) 0.5 H Neut % (Auto) 74.1 H Lymph % (Auto) 10.7 L [place] % (Auto) 11.5 H Eos % (Auto) 2.4 Baso % (Auto) 0.8 Lymph # (Auto) 0.7 L [place] # (Auto) 0.7 Eos # (Auto) 0.2 Baso # (Auto) 0.1 Abs Immat Gran (auto) 0.03 Absolute Neuts (auto) 4.7 Absolute Nucleated RBC 0.000 Nucleated RBC % (auto) 0.0 Anion Gap 13 Estim Creat Clear Calc 113.7 Estimated GFR > 60 Random Glucose 82 Lactic Acid Calcium 8.1 L Total Bilirubin 0.8 Direct Bilirubin AST 18 ALT 6 Alkaline Phosphatase 76 Troponin I High Sens Total Protein 6.2 L Albumin 3.2 L Lipase TSH Urine Color Urine Appearance Urine pH Ur Specific [place] Urine Protein Urine Glucose (UA) Urine Ketones Urine Blood Urine Nitrite Ur Leukocyte Esterase Urine RBC Urine WBC Ur Squamous Epith Cells Urine Bacteria Hyaline Casts Urine Opiates Screen Ur Buprenorphine Scrn Ur Oxycodone Screen Urine Methadone Screen Urine Fentanyl Screen Ur Barbiturates Screen Ur Phencyclidine Scrn Ur Amphetamines Screen U Benzodiazepines Scrn Urine Cocaine Screen U Marijuana (THC) Screen Microbiology Microbiology Results: Microbiology 03/27/25 17:11 Blood Culture - Preliminary Blood - Venous Prelim: GNR Gram Stain only 03/27/25 17:42 Blood Culture - Preliminary Blood - Venous Prelim: GNR Gram Stain only 03/27/25 Unknown Urine Culture - Preliminary Urine clean catch - Clean Catch Midstream Culture in progress. Assessment and Plan (1) Pyelonephritis: Status: Acute (2) Kidney calculi: Status: Acute Assessment and Plan: 59-year-old male with past medical history nephrolithiasis, urinary incontinence, UTI with history of ESBL, SHAYLA, diastolic heart failure, IBS with chronic diarrhea, proximal atrial fibrillation on apixaban, history of gastric bypass, restrictive lung disease/asthma, peripheral vascular disease, pancreatic insufficiency on Creon, GERD, depression, BPH is being admitted with evidence of sepsis secondary to pyelonephritis from a right ureteropelvic junction calculus. Patient has noted right hydronephrosis with normal renal function at this time. Sepsis sec to uti -source ureteropelvic calculus with evidence of pyelonephritis -patient is started on ertapenem with history of ESBL -ID consulted -lactic acid 1.6 -no leukocytosis tachycardia due to pain and AFib RVR -telemetry -follow blood cultures and urine culture Pyelonephritis/ right ureteropelvic junction calculus/ right renal hydronephrosis gram negative bactermia apixaban held as patient will undergo procedure likely with Urology in the a.m. -Julissa wick in place, strict I's and O's plan: acetaminophen PRN,IVP morphine for flank pain,iv antibiotics AFib RVR-rate responded to IV Cardizem in the ambulance. continue amiodarone, liver function within normal limits -apixaban has been held as patient will undergo procedure with Urology in the a.m. -telemetry -rate currently controlled GERD -Protonix IV Chronic skin breakdown -nystatin powder to be applied to skin folds where red rash is present. -no other chronic open wounds found or reported SHAYLA -patient declined CPAP -continuous CO2 monitoring ordered BPH -Patient normally on tamsulosin DVT prophylaxis: Held due to possible procedure . PPI prophylaxis: Protonix IV ongoing need :sepsis /pyelonephritis and Gram-negative bacteremia: Need IV antibiotics and urological procedure considering patient has right-sided ureteral pelvic calculus/right hydronephrosis Quality Stroke Does the patient have a stroke diagnosis?: No Reason for No Anti-thrombotic by Day Two: Contraindicated VTE Prior VTE?: No VTE Risk Level:: Medical - moderate - high VTE Device Contraindication: N/A - Device Ordered VTE Drug Contraindication: Treatment Not Indicated
--- NOTE | 2025-03-28 19:35 | MHC.SHP ---
Pre-Procedural Eval Section A - 24 Hr Update-Section A only Date of Service: 03/28/25 The patient is an INPATIENT: Yes Changes since office visit: No Cold of Flu in the past 2 weeks, No New Medical Problems, No Changes in Medication and No Patient answered all questions Section B - Complete if H&P > 30 days Chief Complaint: fever Allergies: Allergies Allergy/AdvReac Type Severity Reaction Status Date / Time cefaclor [From Ceclor] Allergy Severe hives Verified 03/27/25 15:05 epanolol Allergy Severe hives Verified 03/27/25 15:05 misoprostol Allergy Severe rash Verified 03/27/25 15:05 NSAIDS (Non-Steroidal Allergy Severe GI upset Verified 03/27/25 15:05 Anti-Inflamma Penicillins Allergy Severe hives, Verified 03/27/25 15:05 rash, itching Sulfa (Sulfonamide Allergy Severe Hives Verified 03/27/25 15:05 Antibiotics) Cephalosporins Allergy Intermediate hives Verified 03/27/25 15:05 amoxicillin Allergy Mild rash Verified 03/27/25 15:05 vancomycin Allergy Mild itching Verified 03/27/25 15:05 clindamycin AdvReac Intermediate Rash Verified 03/27/25 15:05 Plan Diagnosis/Plan: Unchanged (Cystoscopy, right retrograde, right stent placement) I have reviewed the history and physical and performed a pertinent physical examination on my patient. No changes have occurred unless specified. Time Spent With Patient Time: Total time managing care of this patient today ____ minutes.
--- NOTE | 2025-03-28 20:06 | W.PM.OPN ---
Operative Note Operative Note Date of Service: 03/28/25 Narrative: PreOperative Diagnosis: Right pyelonephritis with possible right UPJ stone Post Operative Diagnosis: Right pyelonephritis with small right UPJ stone Procedure: Cystoscopy, right retrograde, right stent placement Surgeon: Dr Paulo Mancilla Anesthesia: LMA Indications for procedure: Right pyelonephritis, right flank pain, CT imaging possible right small stone UPJ Procedure: After informed consent was verified the patient was brought to the operating room and placed in a supine position. Anesthesia was administered per protocol. The patient was placed in modified dorsal lithotomy position and prepped and draped in a sterile fashion. A safety pause time-out was performed. Laterality of procedure and antibiotics were confirmed, appropriate imaging was available A 22 [place] cystoscope was introduced per urethra. No abnormality was noted of urethra or bladder. Both ureteric orifices were seen in a normal position. The right ureter was cannulated with an open ended catheter and a retrograde examination was performed. Filling defects seen at right UPJ small . A Sensor guidewire was placed under fluoroscopy and a good coil was seen within the renal pelvis. Debris extruded around the wire into the bladder consistent with pyelonephritis and small stone. A 6 [place] by 26 cm double J stent was advanced over the wire and up to the level of the renal pelvis under fluoroscopic and direct visualization. The stent was seen with appropriate coil within the renal pelvis and in the bladder after deployment. Sixteen [place] Mcdowell catheter was placed after cystoscope removal. To aid decompression. The patient tolerated the procedure well and was transferred in a stable condition to the recovery area. Pathology: Drains: As above
--- NOTE | 2025-03-28 22:28 | PC.NURSE ---
Addendum entered by Nirmala Ureña RN 03/29/25 04:03: Patient's bp elevated 170/88, hr 98. Dr. Solano made aware via tigertext Original Note: Patient placed on tele monitor per order, showing Afib with hr 100-120s, pt reports history of Afib. Dr. Solano made aware. Per Dr. Solano no action if hr less than 140. Continue to monitor. [facility] [place] secretary monitoring the telemetry made aware.
[2025-03-28] MEDS: Lipase/Prot/Amylase 24/76/120K 1 CAP CAPSULE.DR 2 CAP PO (23:00)
[2025-03-28] MEDS: Sennosides 8.6 MG TABLET 17.2 MG PO (23:01)
[2025-03-29] VITALS (7 sets, daily range): BP systolic 119–170; BP diastolic 65–92; PULSE 91–106; RESP 15–24; TEMP 36.1–37.3; O2SAT 93–97
--- NOTE | 2025-03-29 | ECG_ITS ---
Test Reason : Tachycardia Blood Pressure : */* mmHG Vent. Rate : 134 BPM Atrial Rate : * BPM P-R Int : * ms QRS Dur : 92 ms QT Int : 312 ms P-R-T Axes : * 74 21 degrees QTcB Int : 465 ms Poor data quality, interpretation may be adversely affected Atrial fibrillation with rapid ventricular response Nonspecific ST abnormality Abnormal ECG When compared with ECG of 07-May-2023 07:33, Atrial fibrillation with rapid ventricular response has replaced Normal sinus rhythm Referred By: Govind Wynne Electronically Signed By: MARY DALY MD
[2025-03-29] MEDS: oxyCODONE HCl Immed Release 5 MG TABLET PO ×4 (01:13→21:48)
[2025-03-29] MEDS: Pantoprazole Sodium 40 MG/10 ML VIAL IVPUSH (06:17)
[2025-03-29] MEDS: 0.9 % Sodium Chloride Flush 3 ML SYRINGE IVFLUSH ×2 (06:17→21:57)
[2025-03-29] MEDS: Meropenem 1 GM VIAL IVPUSH ×3 (06:17→21:48)
--- NOTE | 2025-03-29 08:03 | HO.POSTANES ---
Post Anesthesia Evaluation Post Anesthesia Evaluation Date of Service: 03/29/25 Vital Signs: Vital Signs Temp Pulse Resp BP Pulse Ox O2 Del Method O2 Flow Rate 03/29/25 03:38 98.6 F 98 18 170/88 H 93 Nasal Cannula 2 03/29/25 00:00 98.2 F 100 20 152/80 H 94 Nasal Cannula 2 03/28/25 20:24 98.8 F 103 H 20 157/82 H 97 Nasal Cannula with ETCO2 2 03/28/25 20:19 98 20 148/79 H 96 Nasal Cannula with ETCO2 2 03/28/25 20:14 96 20 131/84 95 Nasal Cannula with ETCO2 3 03/28/25 20:09 98.8 F 103 H 15 122/71 91 L Nasal Cannula with ETCO2 3 Anesthesia: General Mental Status: Awake Pain Control: Satisfactory Nausea/Vomiting: None Hydration: Adequate Anesthesia-Related Issues: No Anes. Related Issues
[2025-03-29] MEDS: Lipase/Prot/Amylase 24/76/120K 1 CAP CAPSULE.DR 2 CAP PO ×2 (08:04→21:48)
[2025-03-29] MEDS: oxyBUTYnin chloride ER 5 MG TAB.ER.24 15 MG PO (08:04)
[2025-03-29] MEDS: Sertraline HCL 100 MG TABLET PO (08:05)
[2025-03-29] MEDS: Multivitamin TABLET 1 TAB PO (08:05)
[2025-03-29] MEDS: Amiodarone HCL 200 MG TABLET PO (08:05)
[2025-03-29] MEDS: Tamsulosin HCL 0.4 MG CAPSULE PO (08:05)
[2025-03-29] MEDS: Phenazopyridine HCL 100 MG TABLET PO (08:40)
[2025-03-29] MEDS: Lactated Ringers 1,000 ML 100 ML IVCONT (08:41)
[2025-03-29] MEDS: Nystatin Powder 15 GM BOTTLE 1 APPL TOPICAL (08:42)
--- NOTE | 2025-03-29 09:49 | PC.NURSE ---
MD transfer to [facility], no rooms currently at the moment.
[2025-03-29] MEDS: Metoprolol Tartrate 5 MG/5 ML VIAL 2.5 MG IVPUSH (09:58)
[2025-03-29 10:58] LABS: Hematocrit 40.3 % (42.0-52.0); Hemoglobin 13.2 g/dl (14.0-18.0); Mean Corpuscular HGB Conc 32.8 g/dl (31.0-36.0); Mean Corpuscular Hemoglobin 31.7 pg (27.0-33.0); Mean Corpuscular Volume 96.6 fL (80.0-98.0); Mean Platelet Volume 10.3 fL (9.4-12.4); Platelet Count 144 X10*3/uL (160-400); Red Blood Count 4.17 X10*6/uL (4.60-5.80); Red Cell Distribution Width 15.1 % (11.0-16.0); White Blood Count 6.1 X10*3/uL (4.8-10.8)
[2025-03-29 11:04] LABS: Anion Gap 13 (12-20); Blood Urea Nitrogen 14 mg/dL (9-16); Calcium 8.5 mg/dL (8.4-10.2); Carbon Dioxide 26 mmol/L (22-29); Chloride 105 mmol/L (96-108); Estimated Glomerular Filt Rate > 60; Glucose Random 116 mg/dL (60-115); Potassium 3.2 mmol/L (3.3-5.1); Sodium 141 mmol/L (135-145)
--- NOTE | 2025-03-29 17:09 | P.PNIM_ITS ---
Subjective Subjective Date of Service: 03/29/25 Interval History: uti, afib rvr Review of Systems Denies any chest pain or shortness of breath or palpitation Denies abdominal pain or urinary symptoms. Review of Systems: Yes all other systems are reviewed and are negative Physical Exam 2 Vital Signs: Vital Signs: Last Vital Signs Temp 97.8 F 03/29/25 15:41 Pulse 100 03/29/25 15:41 Resp 18 03/29/25 15:41 BP 124/92 H 03/29/25 15:41 Pulse Ox 96 03/29/25 15:41 O2 Del Method Nasal Cannula 03/29/25 15:41 O2 Flow Rate 2 03/29/25 15:41 BMI result Body Mass Index 52.5 Appearance: Alert.? Oriented X3.? cvs: rrr, [id number]. res: air entry fair ,no rales or wheezing abd: no rebound or guarding ,nt, bs present. : no cva tenderness ext pulses present , no cyanosis . neuro: axo3 , nonfocal. Objective Data Active Medications Albuterol/Ipratropium (Albuterol/Iprat 2.5/0.5mg 3 Ml Ampul.Neb) 3 ml INHALE Q4H PRN PRN Reason: Shortness of Breath/Wheezing Amiodarone HCl (Amiodarone Hcl 200 Mg Tablet) 200 mg PO DAILY [facility] Last Admin: 03/29/25 08:05 Dose: 200 mg Documented By: NBA Lipase/Protease/Amylase (Lipase/Prot/Amylase 24/76/120k 1 Cap Capsule.Dr) 2 cap PO BID [facility] Last Admin: 03/29/25 08:04 Dose: 2 cap Documented By: NBA Meropenem (Meropenem 1 Gm Vial) 1 gm IVPUSH Q8H [facility] Last Admin: 03/29/25 15:41 Dose: 1 gm Documented By: DONIS Morphine Sulfate (Morphine Sulfate 2 Mg/Ml Cartridge) 1 mg IVPUSH Q3H PRN; Protocol PRN Reason: Pain, Severe (Pain Scale 7-10) Last Admin: 03/28/25 16:45 Dose: 1 mg Documented By: VIRGEN Multivitamins/Vitamin C (Multivitamin Tablet) 1 tab PO DAILY [facility] Last Admin: 03/29/25 08:05 Dose: 1 tab Documented By: NBA Non-Formulary Medication (Colesevelam) 1,250 mg PO BID [facility] Nystatin (Nystatin Powder 15 Gm Bottle) 1 appl TOPICAL BID [facility]; Protocol Last Admin: 03/29/25 08:42 Dose: 1 appl Documented By: NBA Ondansetron HCl (Ondansetron Hcl 4 Mg/2 Ml Vial) 4 mg IVPUSH Q8H PRN PRN Reason: Nausea and Vomiting Oxybutynin Chloride (Oxybutynin Chloride Er 5 Mg Tab.Er.24) 15 mg PO DAILY [facility] Last Admin: 03/29/25 08:04 Dose: 15 mg Documented By: NBA Oxycodone HCl (Oxycodone Hcl Immed Release 5 Mg Tablet) 5 mg PO Q6H PRN PRN Reason: Pain (Scale Score 4-6) Last Admin: 03/29/25 15:41 Dose: 5 mg Documented By: DONIS Pantoprazole Sodium (Pantoprazole Sodium 40 Mg/10 Ml Vial) 40 mg IVPUSH DAILY@0630 [facility] Last Admin: 03/29/25 06:17 Dose: 40 mg Documented By: NGOZI Phenazopyridine HCl (Phenazopyridine Hcl 100 Mg Tablet) 100 mg PO RQ8H PRN PRN Reason: Bladder Spasm/Pain Stop: 03/31/25 08:15 Last Admin: 03/29/25 08:40 Dose: 100 mg Documented By: NBA Senna (Sennosides 8.6 Mg Tablet) 17.2 mg PO BEDTIME [facility] Last Admin: 03/28/25 23:01 Dose: 17.2 mg Documented By: LEYLA Sertraline HCl (Sertraline Hcl 100 Mg Tablet) 100 mg PO DAILY [facility] Last Admin: 03/29/25 08:05 Dose: 100 mg Documented By: NBA Simethicone (Simethicone 80 Mg Tab.Chew) 160 mg PO BID PRN PRN Reason: abdominal distention Sodium Chloride (0.9 % Sodium Chloride Flush 3 Ml Syringe) 3 ml IVFLUSH QSHIFT [facility] Last Admin: 03/29/25 15:42 Dose: Not Given Documented By: DONIS Non-Admin Reason: IV Running Tamsulosin HCl (Tamsulosin Hcl 0.4 Mg Capsule) 0.4 mg PO DAILY [facility] Last Admin: 03/29/25 08:05 Dose: 0.4 mg Documented By: NBA Labs 03/29/25 10:16 03/29/25 10:16 Labs: Laboratory Results - last 24 hr 03/29/25 10:16 MCV 96.6 MCH 31.7 MCHC 32.8 RDW 15.1 Plt Count 144 L MPV 10.3 Absolute Nucleated RBC 0.000 Nucleated RBC % (auto) 0.0 Anion Gap 13 Estim Creat Clear Calc 125.0 Estimated GFR > 60 Random Glucose 116 H Calcium 8.5 Microbiology Microbiology Results: Microbiology 03/27/25 17:11 Blood Culture - Preliminary Blood - Venous Gram negative jeniffer 03/27/25 17:42 Blood Culture - Preliminary Blood - Venous Gram negative jeniffer 03/27/25 Unknown Urine Culture - Preliminary Urine clean catch - Clean Catch Midstream Gram negative jeniffer Assessment and Plan (1) Pyelonephritis: Status: Acute Plan 59-year-old male with past medical history nephrolithiasis, urinary incontinence, UTI with history of ESBL, SHAYLA, diastolic heart failure, IBS with chronic diarrhea, proximal atrial fibrillation on apixaban, history of gastric bypass, restrictive lung disease/asthma, peripheral vascular disease, pancreatic insufficiency on Creon, GERD, depression, BPH is being admitted with evidence of sepsis secondary to pyelonephritis from a right ureteropelvic junction calculus. Patient has noted right hydronephrosis with normal renal function at this time. Sepsis sec to uti -source ureteropelvic calculus with evidence of pyelonephritis lactic acid 1.6,no leukocytosis Seen by an urology-Cystoscopy, right retrograde, right stent placement. Urine culture and blood culture positive for Gram-negative rods. Pyelonephritis/ right ureteropelvic junction calculus/ right renal hydronephrosis gram negative bactermia apixaban held as patient will undergo procedure likely with Urology in the a.m. Julissa wick in place, strict I's and O's plan: acetaminophen PRN,IVP morphine for flank pain,iv antibiotics AFib RVR- episode of afib hr 140's this morning Received metoprolol IV 2.5 mg-responded well. Heart rate improving Continue amiodarone. Cardiology evaluation added. GERD -Protonix IV Chronic skin breakdown -nystatin powder to be applied to skin folds where red rash is present. -no other chronic open wounds found or reported SHAYLA -patient declined CPAP -continuous CO2 monitoring ordered BPH -Patient normally on tamsulosin DVT prophylaxis: Held due to possible procedure . PPI prophylaxis: Protonix IV ongoing need :sepsis /pyelonephritis and Gram-negative bacteremia: Need IV antibiotics,afib with rvr-moniter tele . Quality Stroke Does the patient have a stroke diagnosis?: No Reason for No Anti-thrombotic by Day Two: Contraindicated VTE Prior VTE?: No VTE Risk Level:: Medical - moderate - high VTE Device Contraindication: N/A - Device Ordered VTE Drug Contraindication: Treatment Not Indicated
--- NOTE | 2025-03-29 17:11 | P.CDIM_ITS ---
PROVIDER RESPONSE TEXT: To clarify, the appropriate diagnosis supported by the clinical indicators: Obesity Due to excess calories QUERY TEXT: PHYSICIAN'S DOCUMENTATION REQUEST Date of Query: 03/29/2025 01:35 PM EDT Patient Name: Jan Villarreal Admit Date: 03/28/2025 Dear Govind Wynne MD, A review of the medical record indicates additional documentation may be needed. Please review below and update the documentation accordingly. Clinical Indicators: Height: ( ) 5'9 Weight: ( ) 161.2 kg BMI: ( ) 52.5 Other Clinical Notes Supporting Significance of the BMI: If possible, please provide an associated diagnosis related to the abnormal BMI, such as: Overweight Obesity Due to excess calories Obesity Drug induced Obesity Due to other cause Specify the other cause Severe or Morbid Obesity BMI is not significant Other (explain) Clinically unable to determine (explain) Thank you, Karen Swan RN Use of terms such as suspected, likely, concern for, or probable (associated with a specific diagnosi s that is being evaluated, monitored, or treated as if it exists) are acceptable and can be coded in the inpatient se tting, when documented at the time of discharge. Please use your independent medical judgment in providing your response. THIS QUERY IS PART OF THE PERMANENT MEDICAL RECORD
[2025-03-29] MEDS: Sennosides 8.6 MG TABLET 17.2 MG PO (21:48)
[2025-03-29] MEDS: Apixaban 5 MG TABLET PO (21:48)
[2025-03-30 03:47] VITALS: BP 124/86; PULSE 84; RESP 20; TEMP 37.2; O2SAT 98
[2025-03-30] MEDS: Omeprazole 40 MG CAPSULE.DR PO (06:42)
[2025-03-30] MEDS: Meropenem 1 GM VIAL IVPUSH ×3 (06:43→22:52)
[2025-03-30 07:12] VITALS: BP 149/86; PULSE 100; RESP 20; TEMP 36.7; O2SAT 98
[2025-03-30] MEDS: Tamsulosin HCL 0.4 MG CAPSULE PO (07:37)
[2025-03-30] MEDS: Apixaban 5 MG TABLET PO ×2 (07:37→22:48)
[2025-03-30] MEDS: oxyBUTYnin chloride ER 5 MG TAB.ER.24 15 MG PO (07:37)
[2025-03-30] MEDS: Lipase/Prot/Amylase 24/76/120K 1 CAP CAPSULE.DR 2 CAP PO ×2 (07:37→22:48)
[2025-03-30] MEDS: Phenazopyridine HCL 100 MG TABLET PO ×2 (07:39→15:33)
[2025-03-30] MEDS: Sertraline HCL 100 MG TABLET PO (07:40)
[2025-03-30] MEDS: Amiodarone HCL 200 MG TABLET PO (07:40)
[2025-03-30] MEDS: Nystatin Powder 15 GM BOTTLE 1 APPL TOPICAL ×2 (07:40→22:49)
[2025-03-30] MEDS: Multivitamin TABLET 1 TAB PO (07:40)
[2025-03-30] MEDS: 0.9 % Sodium Chloride Flush 3 ML SYRINGE IVFLUSH ×2 (07:44→15:29)
--- NOTE | 2025-03-30 08:30 | PM.CNCAR ---
History of Present Illness History of Present Illness Date of Service: 03/30/25 Requesting physician: Govind Wynne Consult reason: atrial fibrillation Chief complaint: fever Narrative: I was consulted to see Jan in cardiology consultation today for atrial fibrillation. Patient is 59-year-old male with known history of intermittent atrial fibrillation paroxysmal with recent Holter monitor showing presence of intermittent atrial fibrillation. About 2 weeks ago he was started on amiodarone therapy by Dr. Ch to pursue rhythm control approach. Patient's history of morbid obesity, diastolic heart failure, obstructive sleep apnea. He has limited functionality because of his arthritis. He is status post gastric bypass surgery. Patient came to the hospital with fever and chills and right flank pain. Noted to have urinary tract infection with sepsis with obstructive calculus. He therefore underwent a urgent urologic surgery stent placement. Postoperatively developed atrial fibrillation overnight. Patient initially when he was with rapid heart rate had complains of palpitations. His symptoms have improved with rate control. Patient remains overnight in atrial fibrillation with borderline rate control. He is still has right flank pain. No fever. He has been continue the amiodarone however his Eliquis has been withheld for surgery. Noted to have some hematuria. Review of Systems Constitutional: Constitutional: Reports chills, Reports fever(s) and Reports weakness Eyes: Eyes: Reports no additional eye complaints Cardiovascular: Cardiovascular: Denies chest pain, Denies leg edema, Denies lightheadedness, Denies Loss of Consciousness, Reports palpitations and Denies dyspnea Respiratory: Respiratory: Reports no additional respiratory complaints and Denies dyspnea Gastrointestinal: Gastrointestinal: Reports no additional gastrointestinal complaints Genitourinary: Genitourinary: Reports flank pain Musculoskeletal: Musculoskeletal: Reports no additional musculoskeletal complaints Integumentary/Breasts: Skin/Breast: Reports system reviewed and no additional complaints, except as docu Neurologic: Reports system reviewed and no additional complaints, except as documented and Reports weakness Endocrine: Endocrine: Reports palpitations PMFSH Past Medical History Medical History Nocturnal hypoxemia Somnolence, daytime Loud snoring SHAYLA (obstructive sleep apnea) Paroxysmal A-fib Atrial flutter PAF (paroxysmal atrial fibrillation) On beta paty at home On anticoagulant therapy SHAYLA on CPAP Bronchial asthma Restrictive lung disease Migration of vascular stent Pulmonary embolus Family history of stent Uncomplicated opioid dependence Lymphedema Lumbar disc disease Venous stasis Hyperlipidemia Neurogenic bladder Dyspnea Lumbar disc prolapse with root compression History of kidney stones GERD (gastroesophageal reflux disease) OA (osteoarthritis) Morbid obesity Asthma Depression Essential hypertension Family History Family History Mother Diabetes Father Brain cancer Sister Diabetes Sister Diabetes Sister Diabetes Brother Blind Brother No problems noted. Brother No problems noted. Brother No problems noted. Brother No problems noted. Daughter No problems noted. Daughter Mental health disorder Son Mental health disorder Son No problems noted. Son No problems noted. Surgical History Surgical History Hx of cervical spine surgery S/P IVC filter S/P appendectomy Hx of colonoscopy History of esophagogastroduodenoscopy (EGD) Hx of eye surgery Hx of gastric bypass Social History Social History Household Members: Spouse and Children Household Members Other:: - 5 kids Housing: House Are you a primary healthcare or medical to a significant other at home: No Do you presently have visiting nurse or other home services: No Alcohol intake: former Year quit: 1979 Comment: uses cane at times- knee gives out Patient Tobacco Use Status: Never used Tobacco Second Hand Smoke Exposure: No Advance Directives Date on File: 08/14/21 service: No Current occupational status: disabled Current occupation: rt handed Travel History Ebola Risk: Travel/Contact With Anyone From Affected Area/s: No Has Patient Experienced Ebola Symptoms: No Meds Allergies Allergy/AdvReac Type Severity Reaction Status Date / Time cefaclor [From [facility]] Allergy Severe hives Verified 03/27/25 15:05 epanolol Allergy Severe hives Verified 03/27/25 15:05 misoprostol Allergy Severe rash Verified 03/27/25 15:05 NSAIDS (Non-Steroidal Allergy Severe GI upset Verified 03/27/25 15:05 Anti-Inflamma Penicillins Allergy Severe hives, Verified 03/27/25 15:05 rash, itching Sulfa (Sulfonamide Allergy Severe Hives Verified 03/27/25 15:05 Antibiotics) Cephalosporins Allergy Intermediate hives Verified 03/27/25 15:05 amoxicillin Allergy Mild rash Verified 03/27/25 15:05 vancomycin Allergy Mild itching Verified 03/27/25 15:05 clindamycin AdvReac Intermediate Rash Verified 03/27/25 15:05 Active Medications: Current Medications Albuterol/Ipratropium (Albuterol/Iprat 2.5/0.5mg 3 Ml Ampul.Neb) 3 ml INHALE Q4H PRN PRN Reason: Shortness of Breath/Wheezing Amiodarone HCl (Amiodarone Hcl 200 Mg Tablet) 200 mg PO DAILY [facility] Last Admin: 03/30/25 07:40 Dose: 200 mg Lipase/Protease/Amylase (Lipase/Prot/Amylase 24/76/120k 1 Cap Capsule.) 2 cap PO BID [facility] Last Admin: 03/30/25 07:37 Dose: 2 cap Apixaban (Apixaban 5 Mg Tablet) 5 mg PO BID [facility] Last Admin: 03/30/25 07:37 Dose: 5 mg Meropenem (Meropenem 1 Gm Vial) 1 gm IVPUSH Q8H [facility] Last Admin: 03/30/25 06:43 Dose: 1 gm Morphine Sulfate (Morphine Sulfate 2 Mg/Ml Cartridge) 1 mg IVPUSH Q3H PRN; Protocol PRN Reason: Pain, Severe (Pain Scale 7-10) Last Admin: 03/28/25 16:45 Dose: 1 mg Multivitamins/Vitamin C (Multivitamin Tablet) 1 tab PO DAILY [facility] Last Admin: 03/30/25 07:40 Dose: 1 tab Non-Formulary Medication (Colesevelam) 1,250 mg PO BID [facility] Nystatin (Nystatin Powder 15 Gm Bottle) 1 appl TOPICAL BID [facility]; Protocol Last Admin: 03/30/25 07:40 Dose: 1 appl Omeprazole (Omeprazole 40 Mg Capsule.) 40 mg PO DAILY@0630 [facility] Last Admin: 03/30/25 06:42 Dose: 40 mg Ondansetron HCl (Ondansetron Hcl 4 Mg/2 Ml Vial) 4 mg IVPUSH Q8H PRN PRN Reason: Nausea and Vomiting Oxybutynin Chloride (Oxybutynin Chloride Er 5 Mg Tab.Er.24) 15 mg PO DAILY [facility] Last Admin: 03/30/25 07:37 Dose: 15 mg Oxycodone HCl (Oxycodone Hcl Immed Release 5 Mg Tablet) 5 mg PO Q6H PRN PRN Reason: Pain (Scale Score 4-6) Last Admin: 03/29/25 21:48 Dose: 5 mg Phenazopyridine HCl (Phenazopyridine Hcl 100 Mg Tablet) 100 mg PO RQ8H PRN PRN Reason: Bladder Spasm/Pain Stop: 03/31/25 08:15 Last Admin: 03/30/25 07:39 Dose: 100 mg Senna (Sennosides 8.6 Mg Tablet) 17.2 mg PO BEDTIME [facility] Last Admin: 03/29/25 21:48 Dose: 17.2 mg Sertraline HCl (Sertraline Hcl 100 Mg Tablet) 100 mg PO DAILY [facility] Last Admin: 03/30/25 07:40 Dose: 100 mg Simethicone (Simethicone 80 Mg Tab.Chew) 160 mg PO BID PRN PRN Reason: abdominal distention Sodium Chloride (0.9 % Sodium Chloride Flush 3 Ml Syringe) 3 ml IVFLUSH QSHIFT [facility] Last Admin: 03/30/25 07:44 Dose: 3 ml Sucralfate (Sucralfate Oral Suspension 1 Gm/10 Ml Oral.Susp) 1 gm PO BID PRN PRN Reason: for pain Tamsulosin HCl (Tamsulosin Hcl 0.4 Mg Capsule) 0.4 mg PO DAILY [facility] Last Admin: 03/30/25 07:37 Dose: 0.4 mg Home Medications ?Medication ?Instructions ?Recorded ?Confirmed ?Last Taken ?Type oxycodone 5 mg tablet 5 mg PO Q6H PRN Pain (Scale Score 05/03/23 03/27/25 Unknown History 4-6) tamsulosin 0.4 mg capsule 0.4 mg PO DAILY 11/12/23 03/27/25 03/25/25 History calcium 600 mg (as 1 tab PO DAILY 05/08/24 03/27/25 03/25/25 History carbonate)-vitamin D3 10 mcg (400 unit) tablet multivitamin with folic acid 400 1 tab PO DAILY 05/08/24 03/27/25 03/25/25 History mcg tablet (Daily-Brent (with folic acid)) sertraline 100 mg tablet 100 mg PO DAILY 05/08/24 03/27/25 03/25/25 History amiodarone 200 mg tablet 200 mg PO DAILY 03/27/25 03/27/2503/25/25 History dapagliflozin propanediol 10 mg 10 mg PO DAILY 03/27/25 03/27/25 03/25/25 History tablet (Farxiga) iron,carbonyl 65 mg-vitamin C 125 1 tab PO DAILY 03/27/25 03/27/25 03/25/25 History mg tablet,delayed release (Vitron-C) omeprazole 40 mg capsule,delayed 40 mg PO DAILY 03/27/25 03/27/25 03/25/25 History release vibegron 75 mg tablet (Gemtesa) 75 mg PO DAILY 03/27/25 03/27/25 03/25/25 History Physical Exam Vital Signs: Vital Signs: Last Vital Signs Temp 98.0 F 03/30/25 07:12 Pulse 100 03/30/25 07:12 Resp 20 03/30/25 07:12 BP 149/86 H 03/30/25 07:12 Pulse Ox 98 03/30/25 07:12 O2 Del Method Nasal Cannula 03/30/25 07:12 O2 Flow Rate 2 03/30/25 07:12 BMI result Body Mass Index 52.5 Const: General: cooperative, comfortable, no acute distress, alert, awake and tired appearing Nutritional Appearance: obese Orientation/consciousness: patient oriented x3 HEENT: Head: Yes normocephalic and Yes atraumatic Neck: Neck: Yes trachea midline, Yes supple and Yes no JVD Resp: Effort & Inspection: decreased respiratory effort Auscultation: clear to auscultation bilaterally Cardio: Jugular venous distension: no JVD Rhythm: abnormal rhythm irregularly irregular Heart sounds: S1 normal heart sound present, S2 normal heart sound present, no click, no gallops and no murmurs GI: Auscultation: normal bowel sounds Skin: General skin exam: no rashes or lesions noted Neuro: General: patient oriented x3 and no focal motor deficits Extrem: General: Yes no clubbing, cyanosis or edema Objective Labs and Meds 03/29/25 10:16 03/29/25 10:16 Lab results: Laboratory Results - last 24 hr 03/29/25 10:16 WBC 6.1 RBC 4.17 L Hgb 13.2 L Hct 40.3 L MCV 96.6 MCH 31.7 MCHC 32.8 RDW 15.1 Plt Count 144 L MPV 10.3 Absolute Nucleated RBC 0.000 Nucleated RBC % (auto) 0.0 Sodium 141 Potassium 3.2 L Chloride 105 Carbon Dioxide 26 Anion Gap 13 BUN 14 Creatinine 0.95 Estim Creat Clear Calc 125.0 Estimated GFR > 60 Random Glucose 116 H Calcium 8.5 Assessment and Plan (1) Atrial fibrillation with rapid ventricular response: Status: Acute Recurrent atrial fibrillation with rapid ventricular response in this middle-aged man with multiple risk factors most likely induced by his acute medical/surgical illness and undergoing surgery under general anesthesia. Patient initially had symptoms in his heart rate was rapid but now the rate is better control his symptoms have improved. No signs or symptoms of heart failure. At this point time given his withdrawal of Eliquis therapy for surgical perspective and hematuria I would hold off on amiodarone therapy given that he is in persistent atrial fibrillation at this point time. Once oral anticoagulation establish and been continue for 2-3 weeks will resume amiodarone therapy at that point time. For now can rate control with metoprolol 25 mg p.o. q.6 hours. Continue supportive care and treatment of underlying pyelonephritis and urologic issues. Will follow with you Procedures Date of Service Date of Service: 03/30/25
[2025-03-30] MEDS: Metoprolol Tartrate 25 MG TABLET PO ×2 (09:27→22:49)
[2025-03-30] MEDS: Potassium Chloride ER 20 MEQ TAB.ER.PRT PO ×2 (09:27→11:20)
[2025-03-30 09:33] LABS: Potassium 3.2 mmol/L (3.3-5.1)
--- NOTE | 2025-03-30 10:46 | MHC.CM.PN ---
Per ROUNDS discussion, Patient is not yet medically cleared for dc (cultures are pending & Afib with RVR); dc is pending ID Consult and CM will continue to follow.
[2025-03-30 11:30] VITALS: BP 109/64; PULSE 85; RESP 18; TEMP 36.4; O2SAT 97
--- NOTE | 2025-03-30 15:18 | P.PNIM_ITS ---
Subjective Subjective Date of Service: 03/30/25 Interval History: uti, afib rvr Review of Systems hr flactuating in 100-120 range no chest pain or sob Review of Systems: Yes all other systems are reviewed and are negative Physical Exam 2 Vital Signs: Vital Signs: Last Vital Signs Temp 97.5 F 03/30/25 11:30 Pulse 85 03/30/25 11:30 Resp 18 03/30/25 11:30 BP 109/64 03/30/25 11:30 Pulse Ox 97 03/30/25 11:30 O2 Del Method Nasal Cannula 03/30/25 11:30 O2 Flow Rate 2 03/30/25 11:30 BMI result Body Mass Index 52.5 Appearance: Alert.? Oriented X3.? cvs: rrr, [id number]. res: air entry fair ,no rales or wheezing abd: no rebound or guarding ,nt, bs present. : no cva tenderness ext pulses present , no cyanosis . neuro: axo3 , nonfocal. Objective Data Active Medications Albuterol/Ipratropium (Albuterol/Iprat 2.5/0.5mg 3 Ml Ampul.Neb) 3 ml INHALE Q4H PRN PRN Reason: Shortness of Breath/Wheezing Amiodarone HCl (Amiodarone Hcl 200 Mg Tablet) 200 mg PO DAILY [facility] Last Admin: 03/30/25 07:40 Dose: 200 mg Documented By: ALEYDA Lipase/Protease/Amylase (Lipase/Prot/Amylase 24/76/120k 1 Cap Capsule.Dr) 2 cap PO BID [facility] Last Admin: 03/30/25 07:37 Dose: 2 cap Documented By: ALEYDA Apixaban (Apixaban 5 Mg Tablet) 5 mg PO BID [facility] Last Admin: 03/30/25 07:37 Dose: 5 mg Documented By: ALEYDA Meropenem (Meropenem 1 Gm Vial) 1 gm IVPUSH Q8H [facility] Last Admin: 03/30/25 06:43 Dose: 1 gm Documented By: REINA Metoprolol Tartrate (Metoprolol Tartrate 25 Mg Tablet) 25 mg PO BID [facility]; Protocol Last Admin: 03/30/25 09:27 Dose: 25 mg Documented By: ALEYDA Morphine Sulfate (Morphine Sulfate 2 Mg/Ml Cartridge) 1 mg IVPUSH Q3H PRN; Protocol PRN Reason: Pain, Severe (Pain Scale 7-10) Last Admin: 03/28/25 16:45 Dose: 1 mg Documented By: VIRGEN Multivitamins/Vitamin C (Multivitamin Tablet) 1 tab PO DAILY [facility] Last Admin: 03/30/25 07:40 Dose: 1 tab Documented By: ALEYDA Non-Formulary Medication (Colesevelam) 1,250 mg PO BID [facility] Nystatin (Nystatin Powder 15 Gm Bottle) 1 appl TOPICAL BID [facility]; Protocol Last Admin: 03/30/25 07:40 Dose: 1 appl Documented By: ALEYDA Omeprazole (Omeprazole 40 Mg Capsule.Dr) 40 mg PO DAILY@0630 [facility] Last Admin: 03/30/25 06:42 Dose: 40 mg Documented By: REINA Ondansetron HCl (Ondansetron Hcl 4 Mg/2 Ml Vial) 4 mg IVPUSH Q8H PRN PRN Reason: Nausea and Vomiting Oxybutynin Chloride (Oxybutynin Chloride Er 5 Mg Tab.Er.24) 15 mg PO DAILY [facility] Last Admin: 03/30/25 07:37 Dose: 15 mg Documented By: ALEYDA Oxycodone HCl (Oxycodone Hcl Immed Release 5 Mg Tablet) 5 mg PO Q6H PRN PRN Reason: Pain (Scale Score 4-6) Last Admin: 03/29/25 21:48 Dose: 5 mg Documented By: REINA Phenazopyridine HCl (Phenazopyridine Hcl 100 Mg Tablet) 100 mg PO RQ8H PRN PRN Reason: Bladder Spasm/Pain Stop: 03/31/25 08:15 Last Admin: 03/30/25 07:39 Dose: 100 mg Documented By: ALEYDA Senna (Sennosides 8.6 Mg Tablet) 17.2 mg PO BEDTIME [facility] Last Admin: 03/29/25 21:48 Dose: 17.2 mg Documented By: REINA Sertraline HCl (Sertraline Hcl 100 Mg Tablet) 100 mg PO DAILY [facility] Last Admin: 03/30/25 07:40 Dose: 100 mg Documented By: ALEYDA Simethicone (Simethicone 80 Mg Tab.Chew) 160 mg PO BID PRN PRN Reason: abdominal distention Sodium Chloride (0.9 % Sodium Chloride Flush 3 Ml Syringe) 3 ml IVFLUSH QSHIFT [facility] Last Admin: 03/30/25 07:44 Dose: 3 ml Documented By: ALEYDA Sucralfate (Sucralfate Oral Suspension 1 Gm/10 Ml Oral.Susp) 1 gm PO BID PRN PRN Reason: for pain Tamsulosin HCl (Tamsulosin Hcl 0.4 Mg Capsule) 0.4 mg PO DAILY [facility] Last Admin: 03/30/25 07:37 Dose: 0.4 mg Documented By: ALEYDA Labs 03/29/25 10:16 03/30/25 09:08 Microbiology Microbiology Results: Microbiology 03/27/25 17:11 Blood Culture - Final Blood - Venous Escherichia coli 03/27/25 17:42 Blood Culture - Final Blood - Venous Escherichia coli 03/27/25 Unknown Urine Culture - Final Urine clean catch - Clean Catch Midstream Escherichia coli Assessment and Plan (1) Acute pyelonephritis: Status: Acute (2) Kidney calculi: Status: Acute Assessment and Plan: 59-year-old male with past medical history nephrolithiasis, urinary incontinence, UTI with history of ESBL, SHAYLA, diastolic heart failure, IBS with chronic diarrhea, proximal atrial fibrillation on apixaban, history of gastric bypass, restrictive lung disease/asthma, peripheral vascular disease, pancreatic insufficiency on Creon, GERD, depression, BPH is being admitted with evidence of sepsis secondary to pyelonephritis from a right ureteropelvic junction calculus. Patient has noted right hydronephrosis with normal renal function at this time. Sepsis sec to uti-source ureteropelvic calculus with evidence of pyelonephritis lactic acid 1.6,no leukocytosis Seen by an urology-Cystoscopy, right retrograde, right stent placement. Urine culture and blood culture positive for ecoli senstive to ertapenem( now on doripenem). Pyelonephritis/ right ureteropelvic junction calculus/ right renal hydronephrosis gram negative bactermia plan: esbl bacteremia/uti -on doripenem acetaminophen PRN,IVP morphine for flank pain,iv antibiotics Id eval pending AFib RVR-hr 100-120. Heart rate improving Continue amiodarone/eliquis added metoprolol Cardiology evaluation added. GERD ppi Chronic skin breakdown -nystatin powder to be applied to skin folds where red rash is present. -no other chronic open wounds found or reported SHAYLA -patient declined CPAP -continuous CO2 monitoring ordered BPH -Patient normally on tamsulosin DVT prophylaxis: Held due to possible procedure . PPI prophylaxis: Protonix IV ongoing need :sepsis /pyelonephritis and esbl: Need IV antibiotics,afib with rvr-moniter tele . Quality Stroke Does the patient have a stroke diagnosis?: No Reason for No Anti-thrombotic by Day Two: Contraindicated VTE Prior VTE?: No VTE Risk Level:: Medical - moderate - high VTE Device Contraindication: N/A - Device Ordered VTE Drug Contraindication: Treatment Not Indicated
[2025-03-30 15:21] VITALS: BP 103/63; PULSE 84; RESP 18; TEMP 36.3; O2SAT 97
--- NOTE | 2025-03-30 17:00 | P.CNID_ITS ---
History of Present Illness Data of Consult Service Date: 03/30/25 Requesting physician: Govind Wynne Primary Care Provider: Destiny Trinidad MD [facility] Reason for consult: sepsis He presents with weakness He has ESBL bacteremia Review of Systems 2 Review of Systems: Yes all other systems are reviewed and are negative PENDING SALE TO [facility] Past Medical History Medical History Nocturnal hypoxemia Somnolence, daytime Loud snoring SHAYLA (obstructive sleep apnea) Paroxysmal A-fib Atrial flutter PAF (paroxysmal atrial fibrillation) On beta paty at home On anticoagulant therapy SHAYLA on CPAP Bronchial asthma Restrictive lung disease Migration of vascular stent Pulmonary embolus Family history of stent Uncomplicated opioid dependence Lymphedema Lumbar disc disease Venous stasis Hyperlipidemia Neurogenic bladder Dyspnea Lumbar disc prolapse with root compression History of kidney stones GERD (gastroesophageal reflux disease) OA (osteoarthritis) Morbid obesity Asthma Depression Essential hypertension Family History Family History Mother Diabetes Father Brain cancer Sister Diabetes Sister Diabetes Sister Diabetes Brother Blind Brother No problems noted. Brother No problems noted. Brother No problems noted. Brother No problems noted. Daughter No problems noted. Daughter Mental health disorder Son Mental health disorder Son No problems noted. Son No problems noted. Family history: reviewed and not pertinent Surgical History Surgical History Hx of cervical spine surgery S/P IVC filter S/P appendectomy Hx of colonoscopy History of esophagogastroduodenoscopy (EGD) Hx of eye surgery Hx of gastric bypass Social History Social History Household Members: Spouse and Children Household Members Other:: - 5 kids Housing: House Are you a primary childcare attendant to a significant other at home: No Do you presently have visiting nurse or other home services: No Alcohol intake: former Year quit: 1979 Comment: uses cane at times- knee gives out Patient Tobacco Use Status: Never used Tobacco Second Hand Smoke Exposure: No Advance Directives Date on File: 08/14/21 service: No Current occupational status: disabled Current occupation: rt handed Travel History Ebola Risk: Travel/Contact With Anyone From Affected Area/s: No Has Patient Experienced Ebola Symptoms: No Meds Allergies Allergy/AdvReac Type Severity Reaction Status Date / Time cefaclor [From [facility]] Allergy Severe hives Verified 03/27/25 15:05 epanolol Allergy Severe hives Verified 03/27/25 15:05 misoprostol Allergy Severe rash Verified 03/27/25 15:05 NSAIDS (Non-Steroidal Allergy Severe GI upset Verified 03/27/25 15:05 Anti-Inflamma Penicillins Allergy Severe hives, Verified 03/27/25 15:05 rash, itching Sulfa (Sulfonamide Allergy Severe Hives Verified 03/27/25 15:05 Antibiotics) Cephalosporins Allergy Intermediate hives Verified 03/27/25 15:05 amoxicillin Allergy Mild rash Verified 03/27/25 15:05 vancomycin Allergy Mild itching Verified 03/27/25 15:05 clindamycin AdvReac Intermediate Rash Verified 03/27/25 15:05 Active Medications: Current Medications Albuterol/Ipratropium (Albuterol/Iprat 2.5/0.5mg 3 Ml Ampul.Neb) 3 ml INHALE Q4H PRN PRN Reason: Shortness of Breath/Wheezing Amiodarone HCl (Amiodarone Hcl 200 Mg Tablet) 200 mg PO DAILY [facility] Last Admin: 03/30/25 07:40 Dose: 200 mg Lipase/Protease/Amylase (Lipase/Prot/Amylase 24/76/120k 1 Cap Capsule.Dr) 2 cap PO BID [facility] Last Admin: 03/30/25 07:37 Dose: 2 cap Apixaban (Apixaban 5 Mg Tablet) 5 mg PO BID [facility] Last Admin: 03/30/25 07:37 Dose: 5 mg Meropenem (Meropenem 1 Gm Vial) 1 gm IVPUSH Q8H [facility] Last Admin: 03/30/25 15:29 Dose: 1 gm Metoprolol Tartrate (Metoprolol Tartrate 25 Mg Tablet) 25 mg PO BID [facility]; Protocol Last Admin: 03/30/25 09:27 Dose: 25 mg Morphine Sulfate (Morphine Sulfate 2 Mg/Ml Cartridge) 1 mg IVPUSH Q3H PRN; Protocol PRN Reason: Pain, Severe (Pain Scale 7-10) Last Admin: 03/28/25 16:45 Dose: 1 mg Multivitamins/Vitamin C (Multivitamin Tablet) 1 tab PO DAILY [facility] Last Admin: 03/30/25 07:40 Dose: 1 tab Non-Formulary Medication (Colesevelam) 1,250 mg PO BID [facility] Nystatin (Nystatin Powder 15 Gm Bottle) 1 appl TOPICAL BID [facility]; Protocol Last Admin: 03/30/25 07:40 Dose: 1 appl Omeprazole (Omeprazole 40 Mg Capsule.Dr) 40 mg PO DAILY@0630 [facility] Last Admin: 03/30/25 06:42 Dose: 40 mg Ondansetron HCl (Ondansetron Hcl 4 Mg/2 Ml Vial) 4 mg IVPUSH Q8H PRN PRN Reason: Nausea and Vomiting Oxybutynin Chloride (Oxybutynin Chloride Er 5 Mg Tab.Er.24) 15 mg PO DAILY [facility] Last Admin: 03/30/25 07:37 Dose: 15 mg Oxycodone HCl (Oxycodone Hcl Immed Release 5 Mg Tablet) 5 mg PO Q6H PRN PRN Reason: Pain (Scale Score 4-6) Last Admin: 03/29/25 21:48 Dose: 5 mg Phenazopyridine HCl (Phenazopyridine Hcl 100 Mg Tablet) 100 mg PO RQ8H PRN PRN Reason: Bladder Spasm/Pain Stop: 03/31/25 08:15 Last Admin: 03/30/25 15:33 Dose: 100 mg Senna (Sennosides 8.6 Mg Tablet) 17.2 mg PO BEDTIME [facility] Last Admin: 03/29/25 21:48 Dose: 17.2 mg Sertraline HCl (Sertraline Hcl 100 Mg Tablet) 100 mg PO DAILY [facility] Last Admin: 03/30/25 07:40 Dose: 100 mg Simethicone (Simethicone 80 Mg Tab.Chew) 160 mg PO BID PRN PRN Reason: abdominal distention Sodium Chloride (0.9 % Sodium Chloride Flush 3 Ml Syringe) 3 ml IVFLUSH QSHIFT [facility] Last Admin: 03/30/25 15:29 Dose: 3 ml Sucralfate (Sucralfate Oral Suspension 1 Gm/10 Ml Oral.Susp) 1 gm PO BID PRN PRN Reason: for pain Tamsulosin HCl (Tamsulosin Hcl 0.4 Mg Capsule) 0.4 mg PO DAILY [facility] Last Admin: 03/30/25 07:37 Dose: 0.4 mg Home Medications ?Medication ?Instructions ?Recorded ?Confirmed ?Last Taken ?Type oxycodone 5 mg tablet 5 mg PO Q6H PRN Pain (Scale Score 05/03/23 03/27/25 Unknown History 4-6) tamsulosin 0.4 mg capsule 0.4 mg PO DAILY 11/12/23 03/27/25 03/25/25 History calcium 600 mg (as 1 tab PO DAILY 05/08/24 03/27/25 03/25/25 History carbonate)-vitamin D3 10 mcg (400 unit) tablet multivitamin with folic acid 400 1 tab PO DAILY 05/08/24 03/27/25 03/25/25 History mcg tablet (Daily-Brent (with folic acid)) sertraline 100 mg tablet 100 mg PO DAILY 05/08/24 03/27/25 03/25/25 History amiodarone 200 mg tablet 200 mg PO DAILY 03/27/25 03/27/25 03/25/25 History dapagliflozin propanediol 10 mg 10 mg PO DAILY 03/27/25 03/27/25 03/25/25 History tablet (Farxiga) iron,carbonyl 65 mg-vitamin C 125 1 tab PO DAILY 03/27/25 03/27/25 03/25/25 History mg tablet,delayed release (Vitron-C) omeprazole 40 mg capsule,delayed 40 mg PO DAILY 03/27/25 03/27/25 03/25/25 History release vibegron 75 mg tablet (Gemtesa) 75 mg PO DAILY 03/27/25 03/27/25 03/25/25 History Physical Exam 2 Vital Signs: Vital Signs: Last Vital Signs Temp 97.4 F 03/30/25 15:21 Pulse 84 03/30/25 15:21 Resp 18 03/30/25 15:21 BP 103/63 03/30/25 15:21 Pulse Ox 97 03/30/25 15:21 O2 Del Method Nasal Cannula 03/30/25 15:21 O2 Flow Rate 2 03/30/25 15:21 BMI result Body Mass Index 52.5 Const: General: cooperative HEENT: Head: Yes normal to inspection Face and sinus: Yes normal facial exam Mouth: Normal oral and palatal mucosa present Teeth and gingiva: d entition normal Eyes: General: appearance normal, both eyes and all related structures P upils: Equal, round and reactive pupils present Resp: Effort & Inspection: normal respiratory effort Cardio: Rate: regular rate Rhythm: regular rhythm GI: Palpation (GI): Soft to palpation and nontender : General: Yes no CVA tenderness Back/Spine/Pelvis: Back: no CVA tenderness Skin: General skin exam: no rashes or lesions noted Neuro: General: moves all extremities Cranial nerves: Yes Equal, round and reactive pupils present Extrem: Other: weakness LE Psych: Appearance: grossly normal Results Labs 03/29/25 10:16 03/30/25 09:08 Labs: BMP 03/30/25 09:08 Potassium 3.2 L Microbiology Microbiology Results: Microbiology 03/27/25 17:11 Blood - Venous Blood Culture - Final Escherichia coli 03/27/25 17:42 Blood - Venous Blood Culture - Final Escherichia coli 03/27/25 Unknown Urine clean catch - Clean Catch Midstream Urine Culture - Final Escherichia coli Assessment and Plan (1) Atrial fibrillation with rapid ventricular response: Status: Acute (2) Kidney calculi: Status: Acute (3) Acute pyelonephritis: Status: Acute Plan Would change to Ertapenem on discharge and give 14 d if tolerated total carbapenem.
[2025-03-30 20:00] VITALS: BP 108/57; PULSE 88; RESP 16; TEMP 36.4; O2SAT 97
[2025-03-30] MEDS: Sennosides 8.6 MG TABLET 17.2 MG PO (22:48)
[2025-03-31] VITALS: BP 111/59; PULSE 80; RESP 18; TEMP 36.6; O2SAT 98
[2025-03-31] MEDS: 0.9 % Sodium Chloride Flush 3 ML SYRINGE IVFLUSH (00:20)
[2025-03-31] MEDS: Omeprazole 40 MG CAPSULE.DR PO (05:35)
[2025-03-31] MEDS: Meropenem 1 GM VIAL IVPUSH ×3 (05:36→22:12)
[2025-03-31 07:51] VITALS: BP 128/65; PULSE 77; RESP 18; TEMP 36.4; O2SAT 98
[2025-03-31] MEDS: oxyBUTYnin chloride ER 5 MG TAB.ER.24 15 MG PO (09:32)
[2025-03-31] MEDS: Amiodarone HCL 200 MG TABLET PO (09:32)
[2025-03-31] MEDS: Sertraline HCL 100 MG TABLET PO (09:32)
[2025-03-31] MEDS: Lipase/Prot/Amylase 24/76/120K 1 CAP CAPSULE.DR 2 CAP PO ×2 (09:32→22:05)
[2025-03-31] MEDS: Apixaban 5 MG TABLET PO ×2 (09:32→22:05)
[2025-03-31] MEDS: Metoprolol Tartrate 25 MG TABLET PO (09:32)
[2025-03-31] MEDS: ondansetron HCL 4 MG/2 ML VIAL IVPUSH (09:32)
[2025-03-31] MEDS: Nystatin Powder 15 GM BOTTLE 1 APPL TOPICAL ×2 (09:33→22:05)
[2025-03-31] MEDS: Multivitamin TABLET 1 TAB PO (09:33)
[2025-03-31] MEDS: Tamsulosin HCL 0.4 MG CAPSULE PO (09:33)
--- NOTE | 2025-03-31 10:36 | PM.PNCARD ---
Subjective Subjective Date of Service: 03/31/25 Principal diagnosis: AFib Interval history: Remains in AFib with slightly rapid ventricular response. No heart failure symptoms. Review of Systems Review of Systems Yes all other systems are reviewed and are negative Physical Exam Vital Signs: Last Vital Signs Temp 97.6 F 03/31/25 07:51 Pulse 77 03/31/25 07:51 Resp 18 03/31/25 07:51 BP 128/65 03/31/25 07:51 Pulse Ox 98 03/31/25 07:51 O2 Del Method Nasal Cannula 03/31/25 07:51 O2 Flow Rate 2 03/31/25 07:51 BMI result Body Mass Index 52.5 Const General: cooperative, comfortable, no acute distress, alert, awake and tired appearing Nutritional Appearance: obese Orientation/consciousness: patient oriented x3 HEENT Head: Yes normocephalic and Yes atraumatic Neck Neck: Yes trachea midline, Yes supple and Yes no JVD Resp Effort & Inspection: decreased respiratory effort Auscultation: clear to auscultation bilaterally Cardio Jugular venous distension: no JVD Rhythm: abnormal rhythm irregularly irregular Heart sounds: S1 normal heart sound present, S2 normal heart sound present, no click, no gallops and no murmurs GI Auscultation: normal bowel sounds Skin General skin exam: no rashes or lesions noted Neuro General: patient oriented x3 and no focal motor deficits Extrem General: Yes no clubbing, cyanosis or edema Objective Labs and Meds 03/29/25 10:16 03/30/25 09:08 Progress Note: A&P Assessment and plan (1) Atrial fibrillation with rapid ventricular response: Status: Acute Assessment and Plan: Atrial fibrillation with rapid ventricular response. No signs of heart failure. Continue rate control. Increase metoprolol. Continue amiodarone. Continue full oral anticoagulation. Continue treating underlying medical/surgical illness. Will sign of the case. Thank you for allowing me to partake in his care Time Spent With Patient Time: Total time managing care of this patient today ____ minutes. Progress Note: Quality Stroke Does the patient have a stroke diagnosis?: No Reason for No Anti-thrombotic by Day Two: Contraindicated Procedures Date of Service Date of Service: 03/31/25
[2025-03-31 11:23] VITALS: BP 124/81; PULSE 76; RESP 18; TEMP 36.2; O2SAT 94
[2025-03-31 16:00] VITALS: BP 106/62; PULSE 92; RESP 17; TEMP 36.3; O2SAT 97
--- NOTE | 2025-03-31 16:18 | HO.PM.IMPN ---
Subjective Subjective Date of Service: 03/31/25 Interval History: uti, afib rvr Review of Systems denies new c/o hr still elevated Review of Systems: Yes all other systems are reviewed and are negative Physical Exam Vital Signs: Vital Signs: Last Vital Signs Temp 97.3 F 03/31/25 16:00 Pulse 92 03/31/25 16:00 Resp 17 03/31/25 16:00 BP 106/62 03/31/25 16:00 Pulse Ox 97 03/31/25 16:00 O2 Del Method Nasal Cannula 03/31/25 16:00 O2 Flow Rate 2 03/31/25 16:00 BMI result Body Mass Index 52.5 Appearance: Alert.? Oriented X3.? cvs: rrr, [id number]. res: air entry fair ,no rales or wheezing abd: no rebound or guarding ,nt, bs present. : no cva tenderness ext pulses present , no cyanosis . neuro: axo3 , nonfocal. Objective Data Active Medications Albuterol/Ipratropium (Albuterol/Iprat 2.5/0.5mg 3 Ml Ampul.Neb) 3 ml INHALE Q4H PRN PRN Reason: Shortness of Breath/Wheezing Amiodarone HCl (Amiodarone Hcl 200 Mg Tablet) 200 mg PO DAILY [facility] Last Admin: 03/31/25 09:32 Dose: 200 mg Documented By: VEE Lipase/Protease/Amylase (Lipase/Prot/Amylase 24/76/120k 1 Cap Capsule.Dr) 2 cap PO BID [facility] Last Admin: 03/31/25 09:32 Dose: 2 cap Documented By: VEE Apixaban (Apixaban 5 Mg Tablet) 5 mg PO BID [facility] Last Admin: 03/31/25 09:32 Dose: 5 mg Documented By: VEE Meropenem (Meropenem 1 Gm Vial) 1 gm IVPUSH Q8H [facility] Last Admin: 03/31/25 14:32 Dose: 1 gm Documented By: VEE Metoprolol Tartrate (Metoprolol Tartrate 50 Mg Tablet) 50 mg PO BID [facility]; Protocol Morphine Sulfate (Morphine Sulfate 2 Mg/Ml Cartridge) 1 mg IVPUSH Q3H PRN; Protocol PRN Reason: Pain, Severe (Pain Scale 7-10) Last Admin: 03/28/25 16:45 Dose: 1 mg Documented By: VIRGEN Multivitamins/Vitamin C (Multivitamin Tablet) 1 tab PO DAILY [facility] Last Admin: 03/31/25 09:33 Dose: 1 tab Documented By: VEE Nystatin (Nystatin Powder 15 Gm Bottle) 1 appl TOPICAL BID [facility]; Protocol Last Admin: 03/31/25 09:33 Dose: 1 appl Documented By: VEE Omeprazole (Omeprazole 40 Mg Capsule.Dr) 40 mg PO DAILY@0630 [facility] Last Admin: 03/31/25 05:35 Dose: 40 mg Documented By: BALTAZAR Ondansetron HCl (Ondansetron Hcl 4 Mg/2 Ml Vial) 4 mg IVPUSH Q8H PRN PRN Reason: Nausea and Vomiting Last Admin: 03/31/25 09:32 Dose: 4 mg Documented By: VEE Oxybutynin Chloride (Oxybutynin Chloride Er 5 Mg Tab.Er.24) 15 mg PO DAILY [facility] Last Admin: 03/31/25 09:32 Dose: 15 mg Documented By: VEE Oxycodone HCl (Oxycodone Hcl Immed Release 5 Mg Tablet) 5 mg PO Q6H PRN PRN Reason: Pain (Scale Score 4-6) Last Admin: 03/29/25 21:48 Dose: 5 mg Documented By: CHAR-PHAM Senna (Sennosides 8.6 Mg Tablet) 17.2 mg PO BEDTIME [facility] Last Admin: 03/30/25 22:48 Dose: 17.2 mg Documented By: BALTAZAR Sertraline HCl (Sertraline Hcl 100 Mg Tablet) 100 mg PO DAILY [facility] Last Admin: 03/31/25 09:32 Dose: 100 mg Documented By: VEE Simethicone (Simethicone 80 Mg Tab.Chew) 160 mg PO BID PRN PRN Reason: abdominal distention Sodium Chloride (0.9 % Sodium Chloride Flush 3 Ml Syringe) 3 ml IVFLUSH QSHIFT [facility] Last Admin: 03/31/25 12:21 Dose: Not Given Documented By: VEE Non-Admin Reason: Previously Administered Sucralfate (Sucralfate Oral Suspension 1 Gm/10 Ml Oral.Susp) 1 gm PO BID PRN PRN Reason: for pain Tamsulosin HCl (Tamsulosin Hcl 0.4 Mg Capsule) 0.4 mg PO DAILY [facility] Last Admin: 03/31/25 09:33 Dose: 0.4 mg Documented By: VEE Clark 03/29/25 10:16 03/30/25 09:08 Assessment and Plan (1) Acute pyelonephritis: Status: Acute (2) Kidney calculi: Status: Acute Assessment and Plan: 59-year-old male with past medical history nephrolithiasis, urinary incontinence, UTI with history of ESBL, SHAYLA, diastolic heart failure, IBS with chronic diarrhea, proximal atrial fibrillation on apixaban, history of gastric bypass, restrictive lung disease/asthma, peripheral vascular disease, pancreatic insufficiency on Creon, GERD, depression, BPH is being admitted with evidence of sepsis secondary to pyelonephritis from a right ureteropelvic junction calculus. Patient has noted right hydronephrosis with normal renal function at this time. Sepsis sec to uti-source ureteropelvic calculus with evidence of pyelonephritis lactic acid 1.6,no leukocytosis Seen by an urology-Cystoscopy, right retrograde, right stent placement. Urine culture and blood culture positive for ecoli senstive to ertapenem( now on doripenem). Pyelonephritis/ right ureteropelvic junction calculus/ right renal hydronephrosis gram negative bactermia plan: esbl bacteremia/uti -on doripenem acetaminophen PRN,IVP morphine for flank pain,iv antibiotics Id eval pending AFib RVR-hr 100-120. Heart rate improving Continue amiodarone/eliquis added metoprolol Cardiology evaluation added. GERD ppi Chronic skin breakdown -nystatin powder to be applied to skin folds where red rash is present. -no other chronic open wounds found or reported SHAYLA -patient declined CPAP -continuous CO2 monitoring ordered BPH -Patient normally on tamsulosin DVT prophylaxis: Held due to possible procedure . PPI prophylaxis: Protonix IV ongoing need :sepsis /pyelonephritis and esbl: Need IV antibiotics,afib with rvr-moniter tele .,need midline for 2 week iv antibiotics Quality Stroke Does the patient have a stroke diagnosis?: No Reason for No Anti-thrombotic by Day Two: Contraindicated VTE Prior VTE?: No VTE Risk Level:: Medical - moderate - high VTE Device Contraindication: N/A - Device Ordered VTE Drug Contraindication: Treatment Not Indicated
--- NOTE | 2025-03-31 17:59 | PC.NURSE ---
no acute events this shift.
[2025-03-31 19:51] VITALS: BP 115/66; PULSE 99; RESP 16; TEMP 36.2; O2SAT 98
[2025-03-31] MEDS: Metoprolol Tartrate 50 MG TABLET PO (22:05)
[2025-03-31 23:57] VITALS: BP 109/75; PULSE 56; TEMP 36.7; O2SAT 99
[2025-04-01] VITALS (7 sets, daily range): BP systolic 103–125; BP diastolic 56–68; PULSE 68–86; RESP 16–18; TEMP 36.4–37.1; O2SAT 92–97
[2025-04-01] MEDS: 0.9 % Sodium Chloride Flush 3 ML SYRINGE IVFLUSH ×4 (00:32→19:46)
[2025-04-01] MEDS: Meropenem 1 GM VIAL IVPUSH ×3 (06:02→19:46)
[2025-04-01] MEDS: Omeprazole 40 MG CAPSULE.DR PO (06:03)
[2025-04-01] MEDS: oxyBUTYnin chloride ER 5 MG TAB.ER.24 15 MG PO (09:55)
[2025-04-01] MEDS: Sertraline HCL 100 MG TABLET PO (09:56)
[2025-04-01] MEDS: Amiodarone HCL 200 MG TABLET PO (09:56)
[2025-04-01] MEDS: Lipase/Prot/Amylase 24/76/120K 1 CAP CAPSULE.DR 2 CAP PO ×2 (09:56→19:45)
[2025-04-01] MEDS: Nystatin Powder 15 GM BOTTLE 1 APPL TOPICAL (09:56)
[2025-04-01] MEDS: Tamsulosin HCL 0.4 MG CAPSULE PO (09:56)
[2025-04-01] MEDS: Metoprolol Tartrate 50 MG TABLET PO ×2 (09:56→19:45)
[2025-04-01] MEDS: Apixaban 5 MG TABLET PO ×2 (09:56→19:45)
[2025-04-01] MEDS: Multivitamin TABLET 1 TAB PO (09:56)
[2025-04-01 10:58] LABS: Anion Gap 14 (12-20); Blood Urea Nitrogen 21 mg/dL (9-16); Calcium 8.5 mg/dL (8.4-10.2); Carbon Dioxide 26 mmol/L (22-29); Chloride 106 mmol/L (96-108); Creatinine Clr Calc Pharmacy 156.2; Estimated Glomerular Filt Rate > 60; Glucose Random 113 mg/dL (60-115); Potassium 3.9 mmol/L (3.3-5.1); Sodium 142 mmol/L (135-145)
[2025-04-01] MEDS: Furosemide 20 MG TABLET PO (12:25)
--- NOTE | 2025-04-01 17:10 | HO.PM.IMPN ---
Subjective Subjective Date of Service: 04/01/25 Interval History: afib uti Review of Systems feels better denies new c/o generalised weak Physical Exam Vital Signs: Vital Signs: Last Vital Signs Temp 98.2 F 04/01/25 15:59 Pulse 70 04/01/25 15:59 Resp 17 04/01/25 15:59 BP 105/65 04/01/25 15:59 Pulse Ox 95 04/01/25 15:59 O2 Del Method Nasal Cannula 04/01/25 15:59 O2 Flow Rate 2 04/01/25 15:59 BMI result Body Mass Index 52.5 Appearance: Alert.? Oriented X3.? cvs: rrr, [id number]. res: air entry fair ,no rales or wheezing abd: no rebound or guarding ,nt, bs present. : no cva tenderness ext pulses present , no cyanosis . neuro: axo3 , nonfocal. Objective Data Active Medications Albuterol/Ipratropium (Albuterol/Iprat 2.5/0.5mg 3 Ml Ampul.Neb) 3 ml INHALE Q4H PRN PRN Reason: Shortness of Breath/Wheezing Amiodarone HCl (Amiodarone Hcl 200 Mg Tablet) 200 mg PO DAILY [facility] Last Admin: 04/01/25 09:56 Dose: 200 mg Documented By: KYLE Lipase/Protease/Amylase (Lipase/Prot/Amylase 24/76/120k 1 Cap Capsule.Dr) 2 cap PO BID [facility] Last Admin: 04/01/25 09:56 Dose: 2 cap Documented By: KYLE Apixaban (Apixaban 5 Mg Tablet) 5 mg PO BID [facility] Last Admin: 04/01/25 09:56 Dose: 5 mg Documented By: KYLE Meropenem (Meropenem 1 Gm Vial) 1 gm IVPUSH Q8H [facility] Last Admin: 04/01/25 12:26 Dose: 1 gm Documented By: ROLAN Metoprolol Tartrate (Metoprolol Tartrate 50 Mg Tablet) 50 mg PO BID [facility]; Protocol Last Admin: 04/01/25 09:56 Dose: 50 mg Documented By: KYLE Multivitamins/Vitamin C (Multivitamin Tablet) 1 tab PO DAILY [facility] Last Admin: 04/01/25 09:56 Dose: 1 tab Documented By: KYLE Nystatin (Nystatin Powder 15 Gm Bottle) 1 appl TOPICAL BID [facility]; Protocol Last Admin: 04/01/25 09:56 Dose: 1 appl Documented By: KYLE Omeprazole (Omeprazole 40 Mg Capsule.Dr) 40 mg PO DAILY@0630 [facility] Last Admin: 04/01/25 06:03 Dose: 40 mg Documented By: NANY Ondansetron HCl (Ondansetron Hcl 4 Mg/2 Ml Vial) 4 mg IVPUSH Q8H PRN PRN Reason: Nausea and Vomiting Last Admin: 03/31/25 09:32 Dose: 4 mg Documented By: VEE Oxybutynin Chloride (Oxybutynin Chloride Er 5 Mg Tab.Er.24) 15 mg PO DAILY [facility] Last Admin: 04/01/25 09:55 Dose: 15 mg Documented By: KYLE Oxycodone HCl (Oxycodone Hcl Immed Release 5 Mg Tablet) 5 mg PO Q6H PRN PRN Reason: Pain (Scale Score 4-6) Last Admin: 03/29/25 21:48 Dose: 5 mg Documented By: REINA Senna (Sennosides 8.6 Mg Tablet) 17.2 mg PO BEDTIME [facility] Last Admin: 03/31/25 22:05 Dose: Not Given Documented By: JOE Non-Admin Reason: Patient Refused Sertraline HCl (Sertraline Hcl 100 Mg Tablet) 100 mg PO DAILY [facility] Last Admin: 04/01/25 09:56 Dose: 100 mg Documented By: KYLE Simethicone (Simethicone 80 Mg Tab.Chew) 160 mg PO BID PRN PRN Reason: abdominal distention Sodium Chloride (0.9 % Sodium Chloride Flush 3 Ml Syringe) 3 ml IVFLUSH QSHIFT [facility] Last Admin: 04/01/25 12:26 Dose: 3 ml Documented By: ROLAN Sucralfate (Sucralfate Oral Suspension 1 Gm/10 Ml Oral.Susp) 1 gm PO BID PRN PRN Reason: for pain Tamsulosin HCl (Tamsulosin Hcl 0.4 Mg Capsule) 0.4 mg PO DAILY [facility] Last Admin: 04/01/25 09:56 Dose: 0.4 mg Documented By: KYLE Labs 03/29/25 10:16 04/01/25 10:00 Labs: Laboratory Results - last 24 hr 04/01/25 10:00 Anion Gap 14 Estim Creat Clear Calc 156.2 Estimated GFR > 60 Random Glucose 113 Calcium 8.5 Assessment and Plan (1) Acute pyelonephritis: Status: Acute (2) Kidney calculi: Status: Acute Assessment and Plan: 59-year-old male with past medical history nephrolithiasis, urinary incontinence, UTI with history of ESBL, SHAYLA, diastolic heart failure, IBS with chronic diarrhea, proximal atrial fibrillation on apixaban, history of gastric bypass, restrictive lung disease/asthma, peripheral vascular disease, pancreatic insufficiency on Creon, GERD, depression, BPH is being admitted with evidence of sepsis secondary to pyelonephritis from a right ureteropelvic junction calculus. Patient has noted right hydronephrosis with normal renal function at this time. Sepsis sec to uti-source ureteropelvic calculus with evidence of pyelonephritis lactic acid 1.6,no leukocytosis Seen by an urology-Cystoscopy, right retrograde, right stent placement. Urine culture and blood culture positive for ecoli senstive to ertapenem( now on doripenem). Pyelonephritis/ right ureteropelvic junction calculus/ right renal hydronephrosis gram negative bactermia plan: esbl bacteremia/uti -on doripenem acetaminophen PRN,IVP morphine for flank pain,iv antibiotics Id eval pending AFib RVR-hr improving Heart rate improving Continue amiodarone/eliquis added metoprolol Cardiology evaluation added. GERD ppi Chronic skin breakdown -nystatin powder to be applied to skin folds where red rash is present. -no other chronic open wounds found or reported SHAYLA -patient declined CPAP -continuous CO2 monitoring ordered BPH -Patient normally on tamsulosin DVT prophylaxis: apixiban PPI prophylaxis: Protonix IV ongoing need :sepsis /pyelonephritis and esbl: Need IV antibiotics,afib with rvr-moniter tele .,need midline for 2 week iv antibiotics Quality Stroke Does the patient have a stroke diagnosis?: No Reason for No Anti-thrombotic by Day Two: Contraindicated VTE Prior VTE?: No VTE Risk Level:: Medical - moderate - high VTE Device Contraindication: N/A - Device Ordered VTE Drug Contraindication: Treatment Not Indicated
[2025-04-02] VITALS (7 sets, daily range): BP systolic 120–147; BP diastolic 66–77; PULSE 67–83; RESP 16–18; TEMP 36.2–37.4; O2SAT 90–96
[2025-04-02] MEDS: Meropenem 1 GM VIAL IVPUSH ×2 (05:52→15:16)
[2025-04-02] MEDS: Omeprazole 40 MG CAPSULE.DR PO (05:52)
[2025-04-02] MEDS: Lipase/Prot/Amylase 24/76/120K 1 CAP CAPSULE.DR 2 CAP PO ×2 (09:35→19:29)
[2025-04-02] MEDS: oxyBUTYnin chloride ER 5 MG TAB.ER.24 15 MG PO (09:35)
[2025-04-02] MEDS: Multivitamin TABLET 1 TAB PO (09:35)
[2025-04-02] MEDS: Tamsulosin HCL 0.4 MG CAPSULE PO (09:35)
[2025-04-02] MEDS: Sertraline HCL 100 MG TABLET PO (09:36)
[2025-04-02] MEDS: 0.9 % Sodium Chloride Flush 3 ML SYRINGE IVFLUSH ×3 (09:36→19:36)
[2025-04-02] MEDS: Metoprolol Tartrate 50 MG TABLET PO ×2 (09:36→19:30)
[2025-04-02] MEDS: Amiodarone HCL 200 MG TABLET PO (09:36)
[2025-04-02] MEDS: Nystatin Powder 15 GM BOTTLE 1 APPL TOPICAL (09:36)
[2025-04-02] MEDS: Apixaban 5 MG TABLET PO ×2 (09:36→19:30)
--- NOTE | 2025-04-02 12:52 | MHC.CM.PN ---
Addendum entered by Nolvia Solorio RN 04/02/25 14:23: IMM 04/02/25 DELIVERED TO PT, MIDLINE PLANNED THIS AFTERNOON AND PT'S WILL ARRANGE TRASNPORT Addendum entered by Nolvia Solorio RN 04/02/25 13:29: PER [facility] PT DID VERY WELL W/TEACH, MIDLINE PENDING, IF PLACED PT WILL BE ABLE TO DC HOME AFTER DOSE OF ERTAPENEM. Original Note: EMR REVIEWED, PLAN FOR MIDLINE AND 4 WKS IV ERTAPENEM 1GM X 14DAYS, [facility] WILL BE IN FOR TEACH AND REACH OUT TO PT'S [facility] [phone], PT AWAITING MIDLINE.
--- NOTE | 2025-04-02 17:19 | HO.PM.IMPN ---
Subjective Subjective Date of Service: 04/02/25 Interval History: uti Review of Systems Denies any new complaint Review of Systems: Yes all other systems are reviewed and are negative Physical Exam Vital Signs: Vital Signs: Last Vital Signs Temp 97.4 F 04/02/25 15:59 Pulse 83 04/02/25 15:59 Resp 17 04/02/25 15:59 BP 147/74 H 04/02/25 15:59 Pulse Ox 96 04/02/25 15:59 O2 Del Method Nasal Cannula 04/02/25 15:59 O2 Flow Rate 2 04/02/25 15:59 BMI result Body Mass Index 52.5 Appearance: Alert.? Oriented X3.? cvs: rrr, [id number]. res: air entry fair ,no rales or wheezing abd: no rebound or guarding ,nt, bs present. : no cva tenderness ext pulses present , no cyanosis . neuro: axo3 , nonfocal. Objective Data Active Medications Albuterol/Ipratropium (Albuterol/Iprat 2.5/0.5mg 3 Ml Ampul.Neb) 3 ml INHALE Q4H PRN PRN Reason: Shortness of Breath/Wheezing Amiodarone HCl (Amiodarone Hcl 200 Mg Tablet) 200 mg PO DAILY [facility] Last Admin: 04/02/25 09:36 Dose: 200 mg Documented By: ROLAN Lipase/Protease/Amylase (Lipase/Prot/Amylase 24/76/120k 1 Cap Capsule.Dr) 2 cap PO BID [facility] Last Admin: 04/02/25 09:35 Dose: 2 cap Documented By: ROLAN Apixaban (Apixaban 5 Mg Tablet) 5 mg PO BID [facility] Last Admin: 04/02/25 09:36 Dose: 5 mg Documented By: ROLAN Metoprolol Tartrate (Metoprolol Tartrate 50 Mg Tablet) 50 mg PO BID [facility]; Protocol Last Admin: 04/02/25 09:36 Dose: 50 mg Documented By: ROLAN Multivitamins/Vitamin C (Multivitamin Tablet) 1 tab PO DAILY [facility] Last Admin: 04/02/25 09:35 Dose: 1 tab Documented By: ROLAN Nystatin (Nystatin Powder 15 Gm Bottle) 1 appl TOPICAL BID [facility]; Protocol Last Admin: 04/02/25 09:36 Dose: 1 appl Documented By: ROLAN Omeprazole (Omeprazole 40 Mg Capsule.Dr) 40 mg PO DAILY@0630 [facility] Last Admin: 04/02/25 05:52 Dose: 40 mg Documented By: MARVA Ondansetron HCl (Ondansetron Hcl 4 Mg/2 Ml Vial) 4 mg IVPUSH Q8H PRN PRN Reason: Nausea and Vomiting Last Admin: 03/31/25 09:32 Dose: 4 mg Documented By: VEE Oxybutynin Chloride (Oxybutynin Chloride Er 5 Mg Tab.Er.24) 15 mg PO DAILY [facility] Last Admin: 04/02/25 09:35 Dose: 15 mg Documented By: ROLAN Oxycodone HCl (Oxycodone Hcl Immed Release 5 Mg Tablet) 5 mg PO Q6H PRN PRN Reason: Pain (Scale Score 4-6) Last Admin: 03/29/25 21:48 Dose: 5 mg Documented By: REINA Senna (Sennosides 8.6 Mg Tablet) 17.2 mg PO BEDTIME [facility] Last Admin: 04/01/25 19:56 Dose: Not Given Documented By: MARVA Non-Admin Reason: Patient Refused Sertraline HCl (Sertraline Hcl 100 Mg Tablet) 100 mg PO DAILY [facility] Last Admin: 04/02/25 09:36 Dose: 100 mg Documented By: ROLAN Simethicone (Simethicone 80 Mg Tab.Chew) 160 mg PO BID PRN PRN Reason: abdominal distention Sodium Chloride (0.9 % Sodium Chloride Flush 3 Ml Syringe) 3 ml IVFLUSH QSHIFT [facility] Last Admin: 04/02/25 15:16 Dose: 3 ml Documented By: ROLAN Sucralfate (Sucralfate Oral Suspension 1 Gm/10 Ml Oral.Susp) 1 gm PO BID PRN PRN Reason: for pain Tamsulosin HCl (Tamsulosin Hcl 0.4 Mg Capsule) 0.4 mg PO DAILY [facility] Last Admin: 04/02/25 09:35 Dose: 0.4 mg Documented By: ROLAN Labs 03/29/25 10:16 04/01/25 10:00 Assessment and Plan (1) Acute pyelonephritis: Status: Acute (2) Kidney calculi: Status: Acute Assessment and Plan: 59-year-old male with past medical history nephrolithiasis, urinary incontinence, UTI with history of ESBL, SHAYLA, diastolic heart failure, IBS with chronic diarrhea, proximal atrial fibrillation on apixaban, history of gastric bypass, restrictive lung disease/asthma, peripheral vascular disease, pancreatic insufficiency on Creon, GERD, depression, BPH is being admitted with evidence of sepsis secondary to pyelonephritis from a right ureteropelvic junction calculus. Patient has noted right hydronephrosis with normal renal function at this time. Sepsis sec to uti-source ureteropelvic calculus with evidence of pyelonephritis lactic acid 1.6,no leukocytosis Seen by an urology-Cystoscopy, right retrograde, right stent placement. Urine culture and blood culture positive for ecoli senstive to ertapenem( now on doripenem). Pyelonephritis/ right ureteropelvic junction calculus/ right renal hydronephrosis gram negative bactermia plan: esbl bacteremia/uti -on doripenem acetaminophen PRN,IVP morphine for flank pain,iv antibiotics Id eval pending AFib RVR-hr improving Heart rate improving Continue amiodarone/eliquis added metoprolol Cardiology evaluation added. GERD ppi Chronic skin breakdown -nystatin powder to be applied to skin folds where red rash is present. -no other chronic open wounds found or reported SHAYLA -patient declined CPAP -continuous CO2 monitoring ordered BPH -Patient normally on tamsulosin DVT prophylaxis: apixiban PPI prophylaxis: Protonix IV ongoing need :sepsis /pyelonephritis and esbl: Need IV antibiotics,afib with rvr-moniter tele .,need midline for 2 week iv antibiotics Quality Stroke Does the patient have a stroke diagnosis?: No Reason for No Anti-thrombotic by Day Two: Contraindicated VTE Prior VTE?: No VTE Risk Level:: Medical - moderate - high VTE Device Contraindication: N/A - Device Ordered VTE Drug Contraindication: Treatment Not Indicated
[2025-04-03 03:53] VITALS: BP 143/78; PULSE 65; RESP 16; TEMP 36.8; O2SAT 94
[2025-04-03] MEDS: Meropenem 1 GM VIAL IVPUSH (03:57)
[2025-04-03] MEDS: Omeprazole 40 MG CAPSULE.DR PO (03:57)
[2025-04-03 07:24] VITALS: BP 145/75; PULSE 70; RESP 18; TEMP 36.3; O2SAT 95
--- NOTE | 2025-04-03 09:52 | HO.MIDLINE_ITS ---
Midline Insertion MIDLINE INSERTION Diagnosis: Acute Pyelonephritis Indication: Snf antibx Pertinent Labs: Reviewed Technique: Using sterile technique including cap and mask, glove and drape, the Right arm was prepped and draped in the usual sterile fashion of full barrier technique with G. Using ultrasound guidance, Right Basilic vein access was obtained. [id number] PowerGlide ST Midline Catheter was positioned. The procedure was performed in Rm 272. Ultrasound was used to document vein patency and for needle entry. A formal ultrasound picture was recorded. [employer] has released the line for use and it is currently dressed with a StatLock, Tegaderm, and CHG disc. Verification has been performed for blood return and line patency. Arm Circumference: 33CM Equipment: Bard PowerGlide ST Midline Catheter Catheter Type: PowerGlide ST Midline Catheter [id number] Lot #: [id number]
[2025-04-03] MEDS: oxyBUTYnin chloride ER 5 MG TAB.ER.24 15 MG PO (09:54)
[2025-04-03] MEDS: Lipase/Prot/Amylase 24/76/120K 1 CAP CAPSULE.DR 2 CAP PO (09:54)
[2025-04-03] MEDS: Tamsulosin HCL 0.4 MG CAPSULE PO (09:55)
[2025-04-03] MEDS: Amiodarone HCL 200 MG TABLET PO (09:55)
[2025-04-03] MEDS: Multivitamin TABLET 1 TAB PO (09:55)
[2025-04-03] MEDS: Sertraline HCL 100 MG TABLET PO (09:55)
[2025-04-03] MEDS: Metoprolol Tartrate 50 MG TABLET PO (09:55)
[2025-04-03] MEDS: Apixaban 5 MG TABLET PO (09:56)
--- NOTE | 2025-04-03 10:43 | MHC.CM.PN ---
Midline has been placed and per RN, first dose of IV ATX started here at 10 AM. VNA & HI have been updated.
--- NOTE | 2025-04-03 10:45 | P.DS_ITS ---
DS: Providers Provider Date of Service: 04/03/25 Date of admission: 03/27/25 21:53 Date of discharge: 04/03/25 Primary care physician: Destiny Trinidad MD Consults: 03/27/25 20:46 Consult to Infectious Diseases Routine Consulting Provider: [facility] Reason for consultation: esbl Has provider been notified: No 03/27/25 21:58 Consult to Urology Routine Consulting Provider: [facility] Reason for consultation: acute pyelonephritis Has provider been notified: Yes 03/27/25 23:21 Consult to Infectious Diseases Routine Consulting Provider: [facility] Reason for consultation: pyelonephritis 03/29/25 09:44 Consult to Cardiology Routine Consulting Provider: [facility] Reason for consultation: afib with rvr Has provider been notified: No 03/31/25 18:58 Consult to Wound Care Routine Reason for consultation: fungal rashes to abd folds DS: Diagnosis Discharge Diagnosis (1) Acute pyelonephritis: Status: Acute (2) Kidney calculi: Status: Acute DS: Summary Hospital Course Hospital Course: admission hpi Chief Complaint: poor appetite Patient is a 59-year-old male with past medical history nephrolithiasis, urinary incontinence, UTI with history of ESBL, SHAYLA, diastolic heart failure, IBS with chronic diarrhea, proximal atrial fibrillation on apixaban, history of gastric bypass, restrictive lung disease/asthma, peripheral vascular disease, pancreatic insufficiency on Creon, GERD, depression, BPH was brought in by ambulance secondary to failure to thrive at home since Wednesday03/25/2025. Patient reports he lost appetite and felt extremely weak which progressed since Wednesday. Patient was seen by EMS at home and was found to be in atrial fibrillation RVR. Patient does have a history of AFib and has been compliant with his medications even though he had been feeling well. Patient received Cardizem in the ambulance and rate is currently controlled. Patient did report chest pain at the time but states currently that chest pain has resolved. Upon interviewing patient for admission to the hospital, patient presented diaphoretic but alert and orientated x3. Patient's temp still abnormal with an axillary temp of 99.7 degrees. Max temp in the ED 100.7. Blood cultures x2 were drawn in the ED. urinalysis noted evidence of urinary tract infection. Patient was started on ertapenem due to known ESBL history with previous culture. Abdominal CT noted a right ureteropelvic junction calculus associated with right hydronephrosis. In addition suggestion of right pyelonephritis seen. Incidentally patient has a small hiatal hernia. Emergency room provider contacted Urology and spoke with Dr. Rust. Goal is to make patient NPO after midnight. And patient will likely undergo intervention in the morning. Currently we are holding patient's apixaban. hospital course 59-year-old male with past medical history nephrolithiasis, urinary incontinence, UTI with history of ESBL, SHAYLA, diastolic heart failure, IBS with chronic diarrhea, proximal atrial fibrillation on apixaban, history of gastric bypass, restrictive lung disease/asthma, peripheral vascular disease, pancreatic insufficiency on Creon, GERD, depression, BPH is being admitted with evidence of sepsis secondary to pyelonephritis from a right ureteropelvic junction calculus. Patient has noted right hydronephrosis with normal renal function at this time. Sepsis sec to uti-source ureteropelvic calculus with evidence of pyelonephritis lactic acid 1.6,no leukocytosisc. Seen by an urology and had Cystoscopy, right retrograde, right stent placement. Urine culture and blood culture positive for ecoli senstive to ertapenem( now on ertaipenem). Pyelonephritis/ right ureteropelvic junction calculus/ right renal hydronephrosis gram negative bactermia--same as above. ID recommends 14 days carbapenem, through April 15. AFib RVR, HR is controlled with addition of metoprolol to amio, to continue Eliquis GERD ppi Chronic skin breakdown -nystatin powder to be applied to skin folds where red rash is present. -no other chronic open wounds found or reported SHAYLA patient declined CPAP while in hospital BPH Patient normally on tamsulosin Time Attestation Discharge Coordination Time (in mins): 45 Quality: Safe Use of Opioids Does Pt have an Active Cancer Diagnosis on the Problem List?: No Quality: Stroke Does the patient have a stroke diagnosis?: No Physical Exam Vital Signs: Vital Signs: Last Vital Signs Temp 97.4 F 04/03/25 07:24 Pulse 70 04/03/25 07:24 Resp 18 04/03/25 07:24 BP 145/75 H 04/03/25 07:24 Pulse Ox 95 04/03/25 07:24 O2 Del Method Room Air 04/03/25 07:24 O2 Flow Rate 2 04/02/25 15:59 BMI result Body Mass Index 52.5 DS: Data Data Completed and Pending Completed studies during hospitalization [Text1]: Procedures Assistance with Respiratory Ventilation, Less than 24 Consecutive Hours, Continuous Positive Airway Pressure (05/04/23) Discharge Plan Discharge Anticipated Discharge Date/Time: 04/03/25 11:11 Patient Disposition: Home Health Service Discharge Diagnosis: E. coli pyelonephritis and bacteremia Referrals: [facility] [Other] - 1 Day ([facility] WILL DELIVER YOUR IV ANTIBIOTICS AND SUPPLIES. ) [facility] [Outside] - 1 Day ([facility] ) Paulo Mancilla MD [Physician] - 2 Weeks Destiny Trinidad MD [Primary Care Provider] - 1 Week Discharge Medications: New ertapenem 1 gram recon soln 1 g IV DAILY Qty: 7 0RF Rx Instructions: next dose 04/04/25 metoprolol tartrate 50 mg Tablet 50 mg PO BID Qty: 180 0RF Protocol: Hold for SBP/HR < HOLD for SBP < : 90 HOLD for HR < : 60 Continued simethicone [Gas Relief (simethicone)] 125 mg tablet,chewable 125 mg PO BID-QID PRN (Reason: abdominal distention) Qty: 120 2RF apixaban 5 mg tablet 5 mg PO BID Qty: 180 3RF Creon 24,000-76,000 -120,000 unit capsule,delayed release(DR/EC) 2 cap PO BID Qty: 100 0RF sucralfate 100 mg/mL suspension 10 ml PO BID PRN (Reason: for pain) Qty: 1000 1RF colesevelam 625 mg tablet 1,250 mg PO BID Qty: 360 0RF omeprazole 40 mg capsule,delayed release(DR/EC) 40 mg PO DAILY Vitron-C 65 mg iron- 125 mg tablet,delayed release (DR/EC) 1 tab PO DAILY dapagliflozin propanediol [Farxiga] 10 mg tablet 10 mg PO DAILY Gemtesa 75 mg tablet 75 mg PO DAILY amiodarone 200 mg tablet 200 mg PO DAILY Rx Instructions: 200 mg orally take 2 tablets BID for 2 weeks, then reduce dose to 1 tablet daily; Stopping Sotalol today. Starting Amiodarone 03/06/25 oxycodone 5 mg tablet 5 mg PO Q6H PRN (Reason: Pain (Scale Score 4-6)) oxybutynin chloride 15 mg tablet extended release 24hr 15 mg PO DAILY Qty: 90 3RF sertraline 100 mg tablet 100 mg PO DAILY multivitamin with folic acid [Daily-Brent (with folic acid)] 400 mcg tablet 1 tab PO DAILY calcium carbonate-vitamin D3 600 mg-10 mcg (400 unit) tablet 1 tab PO DAILY tamsulosin 0.4 mg capsule 0.4 mg PO DAILY Discharge Orders: Discharge Order (Routine); Ordered 04/03/25 Ordered By: David Saavedra Diet: Advance to usual diet Activity on Discharge: As tolerated Stand Alone Forms: Patient Portal Discharge page Print Language: Kyrgyz Care Plan Goals: recovery from sepsis Health Concerns: sepsis, infected kidney stone, bacteremia Plan of Treatment: Take Ertapenem for next until April 15 follow up with your PCP in a week follow up with Urologist Metoprolol added to control atrial fibrilation Assessment: see above Discharge Date/Time: 04/03/25 16:07
[2025-04-03 11:18] VITALS: BP 113/60; PULSE 72; RESP 18; TEMP 36.7; O2SAT 94
[2025-04-03] MEDS: Ertapenem Sodium 1 GM VIAL IVPUSH (13:34)
--- NOTE | 2025-04-03 16:24 | W.MHC.F2F ---
Service Date Service Date: 04/03/25 Encounter Date of encounter: 04/03/25 Reasons for Services Signs and symptoms assessed: weakness from sepsis, hospitalization Reason for assisted: medication management and medication treatment Homebound: Leaving the home is medically contraindicated at this time without the asist of a device and/or another person due th the listed conditions above and below. Reason homebound: weakness related to hospital stay Homebound supporting statement: homebound due to weakness from hospitalization, need for IV infusion at home and therefore needs the assistance of another person Certification: Based on the above findings, I certify that this patient is confined to the home and needs intermittent assisted care, physical therapy and/or speech therapy, or continues to need occupational therapy. The patient is under my care, and I have initiated the establishment of the plan of care. The patient will be followed by a physician who will periodically review the plan of care. Time Spent With Patient Time: Total time managing care of this patient today ____ minutes.
== END 2025-04-03 16:07 | disposition home health service (06) | DRG 660 ==
LOC: HO.ED 21:22 → HO.EDOVER 22:15 → HO.S3 03-28 17:00 → HO.IMC 03-29 10:08
PROVIDERS: Internal Medicine; Nurse Practitioner Family; Urology; Admitting Provider Student in an Organized Health Care Education/Training Program; Emergency Provider Emergency Medicine Emergency Medical Services; PCP Family Medicine; Visit Provider Internal Medicine
PROC: 0T768DZ Dilation of Right Ureter with Intraluminal Device, Via Natural or Artificial Opening Endoscopic (ICD-10-PCS; principal; 2025-03-28 16:00)
DX: N13.6 Pyonephrosis (principal); I48.19 Other persistent atrial fibrillation; Z68.43 Body mass index [BMI] 50.0-59.9, adult; Z16.12 Extended spectrum beta lactamase (ESBL) resistance; G47.33 Obstructive sleep apnea (adult) (pediatric); B96.20 Unspecified Escherichia coli [E. coli] as the cause of diseases classified elsewhere; E66.09 Other obesity due to excess calories; Z98.84 Bariatric surgery status; Z87.440 Personal history of urinary (tract) infections; Z79.01 Long term (current) use of anticoagulants; Z79.899 Other long term (current) drug therapy
CPT/HCPCS: 36410; 36415; 70450; 71045; 74177; 80048; 80053; 80076; 80307; 81001; 83605; 83690; 84132; 84443; 84484; 85025; 85027; 87040; 87077; 87086; 87088; 87186; 87205; 93005; 97162; 99285; C1758; C1769; C2617; J0131; J1335; J2003; J2185; J2270; J2405; J2470; J2704; J3010; J7120; P9047; Q9967

== ENCOUNTER → 2025-03-27 15:16 | Outpatient (BNV) | payer MEDICARE, MEDICAID, SELFPAY | PROVIDERS: Emergency Provider Emergency Medicine Emergency Medical Services; PCP Family Medicine; Visit Provider Radiology Diagnostic Radiology | DX: N13.2 Hydronephrosis with renal and ureteral calculous obstruction (principal); K44.9 Diaphragmatic hernia without obstruction or gangrene; R41.82 Altered mental status, unspecified; R07.9 Chest pain, unspecified | CPT/HCPCS: 70450; 71045; 74177 ==

== ENCOUNTER 2025-03-27 21:53 | Outpatient (BNV) | payer MEDICARE, MEDICAID, SELFPAY | END 2025-03-29 09:44 | PROVIDERS: Admitting Provider Student in an Organized Health Care Education/Training Program; Emergency Provider Emergency Medicine Emergency Medical Services; PCP Family Medicine; Visit Provider Internal Medicine Cardiovascular Disease | DX: R94.31 Abnormal electrocardiogram [ECG] [EKG] (principal); R00.0 Tachycardia, unspecified | CPT/HCPCS: 93010 ==

== ENCOUNTER → 2025-03-27 21:53 | Outpatient (BNV) | payer MEDICARE, MEDICAID, SELFPAY | PROVIDERS: Admitting Provider Student in an Organized Health Care Education/Training Program; Emergency Provider Emergency Medicine Emergency Medical Services; PCP Family Medicine; Visit Provider Nurse Practitioner Family | DX: N10 Acute pyelonephritis (principal); N20.0 Calculus of kidney | CPT/HCPCS: 99231; 99232 ==

== ENCOUNTER → 2025-03-27 21:53 | Outpatient (BNV) | payer MEDICARE, MEDICAID, SELFPAY | PROVIDERS: Admitting Provider Student in an Organized Health Care Education/Training Program; Emergency Provider Emergency Medicine Emergency Medical Services; PCP Family Medicine; Visit Provider Urology | DX: N20.0 Calculus of kidney (principal); N10 Acute pyelonephritis | CPT/HCPCS: 52332; 74420; 99222 ==

== ENCOUNTER → 2025-03-27 21:53 | Outpatient (BNV) | payer MEDICARE, MEDICAID, SELFPAY | PROVIDERS: Admitting Provider Student in an Organized Health Care Education/Training Program; Emergency Provider Emergency Medicine Emergency Medical Services; PCP Family Medicine; Visit Provider Internal Medicine Cardiovascular Disease | DX: I48.91 Unspecified atrial fibrillation (principal) | CPT/HCPCS: 99222; 99232 ==

== ENCOUNTER → 2025-03-27 21:53 | Outpatient (BNV) | payer MEDICARE, MEDICAID, SELFPAY | PROVIDERS: Admitting Provider Student in an Organized Health Care Education/Training Program; Emergency Provider Emergency Medicine Emergency Medical Services; PCP Family Medicine; Visit Provider Internal Medicine | DX: N10 Acute pyelonephritis (principal); I48.91 Unspecified atrial fibrillation; N20.0 Calculus of kidney | CPT/HCPCS: 99232 ==

== ENCOUNTER 2025-04-09 18:00 | Outpatient (REF) | payer MEDICARE, MEDICAID, SELFPAY ==
[2025-04-09 18:02] LABS: MANUAL DIFF FLAG NO
[2025-04-09 18:05] LABS: Basophils Absolute Auto 0.1 X10*3/uL (0.0-0.2); Basophils Percent Auto 1.3 % (0-2); Eosinophils Absolute Auto 0.1 X10*3/uL (0.0-0.4); Eosinophils Percent Auto 1.8 % (0-4); Hematocrit 40.7 % (42.0-52.0); Imm Gran Abs Auto 0.06 X10*3/uL (0.00-0.03); Imm Gran Pct Auto 0.8 % (0.0-0.4); Lymphocytes Absolute Auto 0.9 X10*3/uL (1.2-4.9); Lymphocytes Percent Auto 11.7 % (20-40); Mean Corpuscular HGB Conc 31.9 g/dl (31.0-36.0); Mean Corpuscular Hemoglobin 31.9 pg (27.0-33.0); Mean Platelet Volume 10.2 fL (9.4-12.4); Monocytes Absolute Auto 0.5 X10*3/uL (0.1-1.2); Monocytes Percent Auto 6.7 % (2-11); Neutrophils Absolute Auto 6.1 x10*3/uL (2.0-8.3); Neutrophils Percent Auto 77.7 % (45-73); Platelet Count 374 X10*3/uL (160-400); Red Blood Count 4.07 X10*6/uL (4.60-5.80); Red Cell Distribution Width 14.9 % (11.0-16.0); White Blood Count 7.9 X10*3/uL (4.8-10.8)
== END 2025-04-09 18:01 | disposition home or self-care (01) ==
LOC: HO.HVNA 18:00
PROVIDERS: Visit Provider Internal Medicine
DX: A41.51 Sepsis due to Escherichia coli [E. coli] (principal)
CPT/HCPCS: 36415; 80053; 85025

== ENCOUNTER 2025-04-16 14:12 | Outpatient (AMB) | payer MEDICARE, MEDICAID, SELFPAY ==
--- OUTSIDE RECORDS SUMMARY | 2025-04-16 14:45 | XMS_ITS ---
Author Name [facility] Organization Unknown Encounters Encounter Type Encounter Reason Primary Diagnosis Location Date Ambulatory Presence of othe r vascular implants and grafts Invisible 12/15/2021 Ambulatory Encounter for ot her preprocedural examination Invisible 09/25/2021 Care Team Organization Name Specialty Phone Email Start Date End [facility] Primary [facility] 12/15/2021 06/05/20 24 [facility] 09/25/2021 12/15/19
--- OUTSIDE RECORDS SUMMARY | 2025-04-16 14:45 | XMS_ITS | Clinical Summary ---
Author Organization Formerly [facility] Address [address] [place] [address] Care Team Providers Care Litigation Coordinator Name Role Phone Destiny Trinidad MD Primary Care Provider [phone] Steven Ch MD Unavailable Allergies Active Allergy Reactions Criticality Noted Date [...] (three) times a day. Active nystatin (MYCOSTATIN) 944739 UNIT/GM cream Apply topically 2 (two) times [...] Dates Next Due Covid-19 MRNA Vaccine - [facility] 12+ (Purple Cap) 10/13/2021 Family History Medical [...] 74 12/15/2021 12:55 PM EST Temperature 35.7 C (96.3 F) 12/15/2021 7:37 AM EST Respiratory Rate 18 12/15/2021 12:55 PM EST [...] complete this [place] [id number] [facility] MEDICARE [facility] Care Teams Litigation Coordinator Relationship Specialty Start Date End Date Destiny Trinidad MD [address] [address] PCP - General 09/25/21 Steven Ch MD [address] [place] [address] [address] [place] [address] In Home Baby Sitter Cardiovascular Disease 09/25/21
--- OUTSIDE RECORDS SUMMARY | 2025-04-16 14:45 | XMS_ITS | Patient Health Record ---
Author Organization [facility] Billing Address [address] [place] [address] [place] [phone] Care Team Providers Care Medical Biller Name Role Phone SHIRA DOUGLAS MD Primary Care Provider Unav ailable JAVIDPAYTON IKE Unavailable [phone] Allergies Allergen (clinical drug ingredient) Drug/Non Drug Allergy documented on EMR Reaction Allergy Type Onset Date Status amoxicillin Amoxicillin hives Drug Allergy Act arthur sulfadiazine sulfADIAZINE hives Drug Allergy A ctive Reason For Referral No Information Medications Medication SIG (Take, Route, Frequency, Duration) Notes Start Date End Date Status Iron 1 PO *Please review a nd pick correct strength-formulatio n from Medispan options. If intended option is not shown, discontinue and re-order from Quick Search* Active hydrOXYzine HCl 25 MG 1 tab(s) orally 4 timesonce a momo day; Duration: 14 day(s) Active Furosemide 40 MG 1 tab(s) orally once a day; Duration: 30 day(s) Active Famotidine 20 MG 1 cap(s) orally 2 times a day; Duration: 30 day(s) Active Warfarin Sodium 8MG 1 TAB(S) ORALLY ONCE A DAY; Duration: 30 DAY(S) *Please review and pick correct strength-formulatio n from Medispan options. If intended option is not shown, discontinue and re-order from Quick Search* Active oxyCODONE HCl 5 MG 1 tab(s) orally prn; Duration: 5 day(s) Active Sertraline HCl 25 MG 1 tab(s) orally once a day; Duration: 30 day(s) Active Problems Problem Type SNOMED Code ICD Code Onset Dates Problem Status W/U Status Risk Notes Problem Adverse Effect Of Drug (995.20) Active confirmed Plan Of Treatment No Information Insurance Providers Payer Name Payer Address Payer Phone Subscriber Number Group Number Insured Name Patient Relationship to Insured Coverage Start Date Coverage End Date MEDICARE [address] [place] [id number] Jan Redd Self - patient is the insured [facility] [address] [address] [address] [place] [address] [id number] Jan Redd Self - patient is the insured Medical (General) History Medical History History ICD Code Esophageal reflux spinal stenosis diabetes mallitus Edema blood clots Surgical History Surgery Date(Month/Year) gastric bypass 2003 Hospitalization History Reason Date(Month/Year) medication reaction 2011
--- OUTSIDE RECORDS SUMMARY | 2025-04-16 14:45 | XMS_ITS | Encounter Summary ---
Author Organization [facility] Address [address] [place] [address] Care Team Providers Care Resident Hall Director Name Role Phone Damion Maynard MD Primary Care Provider U Destiny Dewey MD Primary Care Provider [phone] Encounter Details Date Type Department Care Team (Late st Contact Info) Description 08/19/2016 Telephone [facility] General Vascular Surgery [address] [facility] [address] [place] [id number] Shira Meyers NP Social History Tobacco Use [...] on filedocumented in this encounter Care Teams Resident Hall Director Relationship Specialty Start Date End Date Damion Maynard MD PCP - General Family Medicine 05/20/16 12/21/17 Destiny Trinidad MD [facility] [address] [place] [address] PCP - General Family Medicine 12/22/17 documented as of this encounter
--- NOTE | 2025-04-16 15:23 | A.OFFVIS_ITS ---
Intake Visit Reasons: 2 weeks F/U Allergies cefaclor (From Ceclor) Allergy (Severe, Verified 03/27/25 15:05) hives epanolol Allergy (Severe, Verified 03/27/25 15:05) hives misoprostol Allergy (Severe, Verified 03/27/25 15:05) rash NSAIDS (Non-Steroidal Anti-Inflamma Allergy (Severe, Verified 03/27/25 15:05) GI upset Penicillins Allergy (Severe, Verified 03/27/25 15:05) hives, rash, itching Sulfa (Sulfonamide Antibiotics) Allergy (Severe, Verified 03/27/25 15:05) Hives Cephalosporins Allergy (Intermediate, Verified 03/27/25 15:05) hives amoxicillin Allergy (Mild, Verified 03/27/25 15:05) rash vancomycin Allergy (Mild, Verified 03/27/25 15:05) itching clindamycin Adverse Reaction (Intermediate, Verified 03/27/25 15:05) Rash HPI HPI 2 weeks F/U: Details: I saw him in hospital for ESBL E coli bacteremia, UTI. He has had no complaints. He completed 10 days of therapy. [facility] Medical History Nocturnal hypoxemia Somnolence, daytime Loud snoring SHAYLA (obstructive sleep apnea) Paroxysmal A-fib Atrial flutter PAF (paroxysmal atrial fibrillation) On beta paty at home On anticoagulant therapy SHAYLA on CPAP Bronchial asthma Restrictive lung disease Migration of vascular stent Pulmonary embolus Family history of stent Uncomplicated opioid dependence Lymphedema Lumbar disc disease Venous stasis Hyperlipidemia Neurogenic bladder Dyspnea Lumbar disc prolapse with root compression History of kidney stones GERD (gastroesophageal reflux disease) OA (osteoarthritis) Morbid obesity Asthma Depression Essential hypertension Surgical History Hx of cervical spine surgery S/P IVC filter S/P appendectomy Hx of colonoscopy History of esophagogastroduodenoscopy (EGD) Hx of eye surgery Hx of gastric bypass Family History Mother Diabetes Father Brain cancer Sister Diabetes Sister Diabetes Sister Diabetes Brother Blind Brother No problems noted. Brother No problems noted. Brother No problems noted. Brother No problems noted. Daughter No problems noted. Daughter Mental health disorder Son Mental health disorder Son No problems noted. Son No problems noted. Social History Household Members: Spouse and Children Household Members Other:: - 5 kids Housing: House Are you a primary date night caregiver to a significant other at home: No Do you presently have visiting nurse or other home services: No Alcohol intake: former Year quit: 1979 Comment: uses cane at times- knee gives out Patient Tobacco Use Status: Never used Tobacco Second Hand Smoke Exposure: No Advance Directives Date on File: 08/14/21 service: No Current occupational status: disabled Current occupation: rt handed Review of Systems Const All systems reviewed & are unremarkable except as noted in HPI and below Telehealth Telehealth Telehealth Platform: Telephone Location of provider rendering services: practice address Location of patient: address on file Telehealth method: voice only Patient verbally consented to treatment: Yes Patient verbally consented to billing insurance company: Yes Patient informed of any privacy concerns related to visit: Yes Minutes spent on Phone/Video with Pt.: 15 Assessment & Plan Assessment & Plan (1) Acute pyelonephritis: Code(s): N10 - Acute pyelonephritis Category: Medical Plan: Stop IV antibiotics I wrote note to cancel, Orders: Orders IR cvc remove any age Today N10 - Acute pyelonephritis Coding Level of Care Code Tele Est Pt Level 3 (18533) Diagnoses Acute pyelonephritis N10
== END 2025-04-16 14:41 | disposition home or self-care (01) ==
LOC: HO.HID 14:12
PROVIDERS: PCP Family Medicine; Visit Provider Internal Medicine
DX: N10 Acute pyelonephritis (principal)
CPT/HCPCS: 99213

== ENCOUNTER → 2025-04-16 14:12 | Outpatient (BNVA) | payer MEDICARE, MEDICAID, SELFPAY | PROVIDERS: PCP Family Medicine; Visit Provider Internal Medicine | DX: Z13.89 Encounter for screening for other disorder (principal) ==

== ENCOUNTER 2025-04-26 09:20 | Outpatient (AMB) | payer MEDICARE, MEDICAID, SELFPAY ==
--- NOTE | 2025-04-26 09:39 | MHC.OFFVIS ---
Intake Visit Reasons: Stent removal Intake Note: Patient is present for Right cysto stent removal Urology Medication:TAMSULOSIN, GEMTESA, OXYBUTYNIN Antibiotic Allergy:PENICILLIN,SULFA,AMOXICILLIN,VANCOMYCIN,CLINDAMYCIN Blood Thinner:ELIQUIS Burner Hand Required: No Accompanied by: Self / Same As Patient Allergies cefaclor (From Ceclor) Allergy (Severe, Verified 04/26/25 09:41) hives epanolol Allergy (Severe, Verified 04/26/25 09:41) hives misoprostol Allergy (Severe, Verified 04/26/25 09:41) rash NSAIDS (Non-Steroidal Anti-Inflamma Allergy (Severe, Verified 04/26/25 09:41) GI upset Penicillins Allergy (Severe, Verified 04/26/25 09:41) hives, rash, itching Sulfa (Sulfonamide Antibiotics) Allergy (Severe, Verified 04/26/25 09:41) Hives Cephalosporins Allergy (Intermediate, Verified 04/26/25 09:41) hives amoxicillin Allergy (Mild, Verified 04/26/25 09:41) rash vancomycin Allergy (Mild, Verified 04/26/25 09:41) itching clindamycin Adverse Reaction (Intermediate, Verified 04/26/25 09:41) Rash HPI Comments Details: Recent hospital admission for pyelonephritis Right stent had been placed Here for stent removal Significant improvement Keep Plan follow-up visit with Dr. Rust [facility] Medical History Nocturnal hypoxemia Somnolence, daytime Loud snoring SHAYLA (obstructive sleep apnea) Paroxysmal A-fib Atrial flutter PAF (paroxysmal atrial fibrillation) On beta paty at home On anticoagulant therapy SHAYLA on CPAP Bronchial asthma Restrictive lung disease Migration of vascular stent Pulmonary embolus Family history of stent Uncomplicated opioid dependence Lymphedema Lumbar disc disease Venous stasis Hyperlipidemia Neurogenic bladder Dyspnea Lumbar disc prolapse with root compression History of kidney stones GERD (gastroesophageal reflux disease) OA (osteoarthritis) Morbid obesity Asthma Depression Essential hypertension Surgical History Hx of cervical spine surgery S/P IVC filter S/P appendectomy Hx of colonoscopy History of esophagogastroduodenoscopy (EGD) Hx of eye surgery Hx of gastric bypass Family History Mother Diabetes Father Brain cancer Sister Diabetes Sister Diabetes Sister Diabetes Brother Blind Brother No problems noted. Brother No problems noted. Brother No problems noted. Brother No problems noted. Daughter No problems noted. Daughter Mental health disorder Son Mental health disorder Son No problems noted. Son No problems noted. Social History Household Members: Spouse and Children Household Members Other:: - 5 kids Housing: House Are you a primary care transition coordinator to a significant other at home: No Do you presently have visiting nurse or other home services: No Alcohol intake: former Year quit: 1979 Comment: uses cane at times- knee gives out Patient Tobacco Use Status: Never used Tobacco Second Hand Smoke Exposure: No Advance Directives Date on File: 08/14/21 service: No Current occupational status: disabled Current occupation: rt handed Review of Systems Const Denies chills and Denies fever(s) Card Reports no additional complaints and Denies syncope Resp Denies cough GI Denies abdominal pain and Denies heartburn Reports as per HPI and Denies change in libido Neuro Denies syncope Psych Denies change in libido Endo Denies change in libido Physical Exam Const General: cooperative, healthy appearing, comfortable and no acute distress Orientation/consciousness: patient oriented x3 HEENT Face and sinus: Yes normal facial exam Mouth: moist mucous membranes Neck Neck: Yes normal visual inspection, Yes full ROM and Yes trachea midline Chest Chest palpation & inspection: normal inspection of the chest Resp Effort & Inspection: normal respiratory effort, able to speak in complete sentences and no respiratory distress GI Inspection: Yes normal to inspection Back/Spine/Pelvis Cervical Spine: normal cervical lordosis Thoracic/Lumbar Spine: thoracic and lumbar spine normal to inspection Skin General skin exam: no rashes or lesions noted Neuro General: patient oriented x3, gait normal, tone normal and moves all extremities Extrem General: Yes normal to inspection and Yes capillary refill normal Office Procedures Cystoscopy Consent Discussed risk and benefit or proposed procedure with the patient. Information consent for procedure given to the patient. Discussed technical aspects, risks, benefits and alternatives in full. Addressed all of the patient's questions and concerns regarding the procedure. The patient demonstrated knowledge and understanding. They wish to proceed with this procedure. Preparation The patient was prepped in the usual manner. A frame gate mortiser operator was present and in the room. Genitalia was prepped with betadine solution in a sterile manner. Lidocaine Jelly 2% was placed into the urethra and 16Fr flexible Olympus cystoscope was inserted into the meatus after adequate lubrication. Procedure A well lubricated 16 Italian cystoscope was placed No abnormality noted of urethra during placement Indwelling stent seen within bladder emerging from right ureteric orifices The stent was grasped with a 3 prong grasper and removed without difficulty The patient tolerated the procedure well [id number] with stent removal DISPOSABLE SCOPE URO-G FLEXIBLE SCOPE Procedure code (CPT) selection complete Office Meds lidocaine HCl 2 % mucosal jelly in applicator Performing Provider: Paulo Mancilla MD [facility] Administered by: Paulo Mancilla MD on 04/26/25 10:42 Dose Route Admin Location Dispensed Lot Number Expiration Date [facility] Weather Algorithm Scientist 10 mL intra-urethral 10 mL Assessment & Plan Assessment & Plan (1) Pyelonephritis: Code(s): N12 - Tubulo-interstitial nephritis, not specified as acute or chronic Category: Medical Plan Keep follow-up as planned Orders: Orders AMB Cystoscopy Today N20.0 - Calculus of kidney Patient Instructions: This note is constructed using voice recognition software. While every effort has been made to ensure accuracy paving contractor errors may have been included. Imaging studies, laboratory and physical exam results were discussed and reviewed in detail. No major barriers to patient understanding were identified. An opportunity to ask questions regarding the treatment plan was provided. All questions were answered. The patient expressed understanding and agreement with the above treatment plan. The patient is aware they should contact our office by phone for worsening of their current condition or the appearance of new urologic symptoms. Compliance is encouraged with any medications and followup testing that is ordered. It is a privilege to participate in the urologic care of your patient. If you have any questions or concerns regarding treatment for the above conditions, or other urologic issues, please do not hesitate to contact me. The office telephone contact is [phone]. Sincerely, Dr Paulo Mancilla MD, [facility] - Urology Compassionate Specialist Care for the Genitourinary System Coding Level of Care Code Est Pt Level 3 (16823) Diagnoses Pyelonephritis N12 CPT Codes Cystoscopy - CPT: [id number] with stent removal ([id number])
--- OUTSIDE RECORDS SUMMARY | 2025-04-26 09:47 | XMS_ITS | Clinical Summary ---
Author Organization [facility] Address [address] [place] [address] Care Team Providers Care Bindery Machine Setter Name Role Phone Destiny Trinidad MD Primary Care Provider [phone] Steven Ch MD Unavailable [phone] Allergies Active Allergy Reactions Criticality Noted [...] (three) times a day. Active nystatin (MYCOSTATIN) 420068 UNIT/GM cream Apply topically 2 (two) times [...] Dates Next Due Covid-19 MRNA Vaccine - Medium 12+ (Purple Cap) 10/13/2021 Family History Medical [...] complete this [place] [id number] [facility] MEDICARE [facility] Care Teams Bindery Machine Setter Relationship Specialty Start Date End Date Destiny Trinidad MD [address] [address] PCP - General 09/25/21 Steven Ch MD [address] [place] [address] [address] [place] [address] Director Telecommunications Cardiovascular Disease 09/25/21
--- OUTSIDE RECORDS SUMMARY | 2025-04-26 09:47 | XMS_ITS | Encounter Summary ---
Author Organization [facility] Address [address] [place] [address] Care Team Providers Care Accounts Payable Clerk Name Role Phone Damion Maynard MD Primary Care Provider U Destiny Dewey MD Primary Care Provider [phone] Encounter Details Date Type Department Care Team (Late st Contact Info) Description 08/19/2016 Telephone [facility] General Vascular Surgery [address] [facility] [address] [place] [id number] Shira Meyers NP Social History Tobacco Use [...] on filedocumented in this encounter Care Teams Accounts Payable Clerk Relationship Specialty Start Date End Date Damion Maynard MD PCP - General Family Medicine 05/20/16 12/21/17 Destiny Trinidad MD [facility] [address] [place] [address] PCP - General Family Medicine 12/22/17 documented as of this encounter
--- OUTSIDE RECORDS SUMMARY | 2025-04-26 09:47 | XMS_ITS | Patient Health Record ---
Author Organization [facility] Billing Address [address] [place] [address] [place] [phone] Care Team Providers Care Paper Cutter Name Role Phone SHIRA DOUGLAS MD Primary Care Provider Unav ailable JAVIDPAYTON IKE Unavailable [phone] Allergies Allergen (clinical drug ingredient) Drug/Non Drug Allergy documented on EMR Reaction Allergy Type Onset Date Status amoxicillin Amoxicillin hives Drug Allergy Act arthur sulfadiazine sulfADIAZINE hives Drug Allergy A ctive Reason For Referral No Information Medications Medication SIG (Take, Route, Frequency, Duration) Notes Start Date End Date Status Iron 1 PO *Please review a nd pick correct strength-formulatio n from Dianpingspan options. If intended option is not shown, [...] Date MEDICARE [address] [place] [id number] Jan Redd Self - patient is the insured [facility] [address] [address] [place] [address] [id number] Jan Redd Self - patient is the insured Medical (General) History Medical History History ICD Code Esophageal reflux spinal stenosis diabetes mallitus Edema blood clots Surgical History Surgery Date(Month/Year) gastric bypass 2003 Hospitalization History Reason Date(Month/Year) medication reaction 2011
== END 2025-04-26 10:50 | disposition home or self-care (01) ==
LOC: HO.HUSH 09:21
PROVIDERS: PCP Family Medicine; Visit Provider Urology
DX: N40.1 Benign prostatic hyperplasia with lower urinary tract symptoms (principal); R35.0 Frequency of micturition; N52.9 Male erectile dysfunction, unspecified; Z13.9 Encounter for screening, unspecified
CPT/HCPCS: 52310; 99213; G2211

== ENCOUNTER → 2025-04-26 09:20 | Outpatient (BNVA) | payer MEDICARE, MEDICAID, SELFPAY | PROVIDERS: PCP Family Medicine; Visit Provider Urology | DX: N12 Tubulo-interstitial nephritis, not specified as acute or chronic (principal) | CPT/HCPCS: 51798; 52310; 81003; 99212 ==

== ENCOUNTER 2025-04-30 10:25 | Outpatient (AMB) | payer MEDICARE, MEDICAID, SELFPAY ==
--- NOTE | 2025-04-30 11:01 | MHC.OFFVIS ---
Vital Signs 04/30/25 11:02 Height 5 ft 9 in Weight 355 lb 6.162 oz BMI 52.5 BP 130/62 Blood Pressure Location Lt brachial Position Sitting Pulse 64 Pulse Source Monitor Intake Visit Reasons: 3-4m follow up Intake Note: 3-4 mth f/up Inventory Clerk Required: No Accompanied by: Son Allergies cefaclor (From Ceclor) Allergy (Severe, Verified 04/26/25 09:41) hives epanolol Allergy (Severe, Verified 04/26/25 09:41) hives misoprostol Allergy (Severe, Verified 04/26/25 09:41) rash NSAIDS (Non-Steroidal Anti-Inflamma Allergy (Severe, Verified 04/26/25 09:41) GI upset Penicillins Allergy (Severe, Verified 04/26/25 09:41) hives, rash, itching Sulfa (Sulfonamide Antibiotics) Allergy (Severe, Verified 04/26/25 09:41) Hives Cephalosporins Allergy (Intermediate, Verified 04/26/25 09:41) hives amoxicillin Allergy (Mild, Verified 04/26/25 09:41) rash vancomycin Allergy (Mild, Verified 04/26/25 09:41) itching clindamycin Adverse Reaction (Intermediate, Verified 04/26/25 09:41) Rash Medication List - Last Reconciled 04/30/25 by Steven Ch MD amiodarone 200 mg PO DAILY apixaban 5 mg PO BID calcium carbonate-vitamin D3 600 mg-10 mcg (400 unit) 1 tab PO DAILY colesevelam 1,250 mg (2 x 625 mg) PO BID dapagliflozin propanediol (Farxiga) 10 mg PO DAILY iron,carbonyl-vitamin C 65 mg iron- 125 mg (Vitron-C) 1 tab PO DAILY jlyggm-mljehpjm-hopcqhm 24,000-76,000 -120,000 unit (Creon) 2 caps PO BID metoprolol tartrate 50 mg See Protocol PO BID multivitamin with folic acid 400 mcg (Daily-Brent (with folic acid)) 1 tab PO DAILY omeprazole 40 mg PO DAILY oxybutynin chloride ER 15 mg PO DAILY oxycodone 5 mg PO Q6H PRN sertraline 100 mg PO DAILY simethicone (Gas Relief (simethicone)) 125 mg PO BID-QID PRN sucralfate 10 mL PO BID PRN tamsulosin 0.4 mg PO DAILY vibegron (Gemtesa) 75 mg PO DAILY HPI Comments Details: 58-year-old gentleman who was referred to us for episodes of paroxysmal atrial fibrillation. He has background history of morbid obesity status post bariatric surgery, DVT and pulmonary embolism with an IVC filter, hypertension and chronic lymphedema. It appears in 2019 he had palpitations which brought him to the emergency department and was diagnosed with atrial fibrillation. He was given metoprolol in the ER he reverted back to sinus rhythm. His Toprol-XL at that stage was increased from 50-75 mg and eventually to 100 mg. He was also started on lisinopril 5 mg for hypertension. He ran out of his medications a month ago and has not been taking lisinopril and Toprol. He is on Coumadin because of his previous DVT/pulmonary embolism and since he developed atrial fibrillation and this was continued. He continues to have morbid obesity and significant functional limitations due to arthritis and back issues. He gets short of breath when he exercises. He is denying any palpitations. He checks his INR at home and his Coumadin dose is adjusted by Dr. Trinidad. He had an echocardiogram in 2016 which showed normal left ventricular systolic function but there was septal flattening with RV pressure volume overload. Pulmonary artery systolic pressures were documented at 35-40 mm Hg at that time. He also had a dobutamine stress echo in April 2018 which did not show any evidence of ischemia or old LA. Previous photovoltaic solar cell designer was Dr. Marcos Aguilar with [facility]. We repeated his echocardiogram which showed normal biventricular function with mildly dilated ascending aorta. He had moderate pulmonary hypertension. He is returning for follow-up. He had IVC filter removed in [facility] and had IVC stenting done by Dr. Gaffney. He is saying since then his lower extremity edema has improved significantly but recently started noticing right foot edema and will be going back for repeat venogram in April. His blood pressure is elevated and he is taking lisinopril 10 mg once a day. He also has been experiencing some chest discomfort off and on. This happens at nighttime when he is laying down but also happens when he is walking on the treadmill. He is walking approximately 5-6 minutes on treadmill every day as part of weight loss program. He is status post bariatric surgery x 2. He underwent stress testing which did not show any perfusion defect. He also had Holter monitoring which showed episodes of atrial fibrillation. He does not feel any symptoms during atrial fibrillation. Otherwise doing well. Denying any significant chest discomfort shortness of breath. He was started on Multaq. During his follow-up in September 2022 he was in sinus rhythm. Subsequent to that he was seen in office in 2022 and his EKG in the office showing atrial flutter with variable block. Discussing with him he has no symptoms. In particular no palpitations, chest discomfort or worsening shortness of breath. He has been taking his Eliquis and Multaq regularly and he has not missed Eliquis in the last 4 weeks. 06/28/23: He is returning for follow-up. On last visit he was noticed to be in atrial fibrillation and was admitted to the hospital underwent cardioversion after stopping Multaq and was started on sotalol. He has been tolerating sotalol well. EKG in the office is showing sinus rhythm. No palpitations. He has dyspnea on exertion which is chronic due to morbid obesity. 06/14/2024: He is here for follow-up. He is saying that he got in rate to [facility] recently with congestive heart failure. We will get records from there. His EKGs showing atrial fibrillation currently with rate control. He is on sotalol 80 mg twice a day. He is on apixaban 5 mg twice a day. He is denying any symptoms. No palpitations or worsening dyspnea. 08/21/2024: He is here for follow-up. He had 1 episode of palpitations which woke him up approximately 1 month ago. He said he has been diagnosed with sleep apnea and has been using CPAP. No chest discomfort. No shortness of breath more than usual. Other than 1 episode of palpitation no further episodes of atrial fibrillation. 04/30/2025: He is here for follow-up. He recently had pyelonephritis and had ureteric stent placement which was removed. He is saying this is his for urinary tract infection. He has been on Farxiga for long time. This was given to him for episode of heart failure. He is denying any palpitations although he is in AFib. His breathing is stable and is denying any shortness of breath. FORMERLY [facility], [facility] Medical History Nocturnal hypoxemia Somnolence, daytime Loud snoring SHAYLA (obstructive sleep apnea) Paroxysmal A-fib Atrial flutter PAF (paroxysmal atrial fibrillation) On beta paty at home On anticoagulant therapy SHAYLA on CPAP Bronchial asthma Restrictive lung disease Migration of vascular stent Pulmonary embolus Family history of stent Uncomplicated opioid dependence Lymphedema Lumbar disc disease Venous stasis Hyperlipidemia Neurogenic bladder Dyspnea Lumbar disc prolapse with root compression History of kidney stones GERD (gastroesophageal reflux disease) OA (osteoarthritis) Morbid obesity Asthma Depression Essential hypertension Surgical History Hx of cervical spine surgery S/P IVC filter S/P appendectomy Hx of colonoscopy History of esophagogastroduodenoscopy (EGD) Hx of eye surgery Hx of gastric bypass Family History Mother Diabetes Father Brain cancer Sister Diabetes Sister Diabetes Sister Diabetes Brother Blind Brother No problems noted. Brother No problems noted. Brother No problems noted. Brother No problems noted. Daughter No problems noted. Daughter Mental health disorder Son Mental health disorder Son No problems noted. Son No problems noted. Social History Household Members: Spouse and Children Household Members Other:: - 5 kids Housing: House Are you a primary medicare compliance auditor to a significant other at home: No Do you presently have visiting nurse or other home services: No Alcohol intake: former Year quit: 1979 Comment: uses cane at times- knee gives out Patient Tobacco Use Status: Never used Tobacco Second Hand Smoke Exposure: No Advance Directives Date on File: 08/14/21 service: No Current occupational status: disabled Current occupation: rt handed Review of Systems Const Denies chills, Denies fatigue, Denies fever(s), Denies frequent falls, Denies weakness, Denies weight gain and Denies weight loss ENT Denies dizziness Card Denies chest pain, Denies leg edema, Denies lightheadedness, Denies palpitations, Denies dyspnea and Denies dyspnea on exertion Resp Denies cough, Denies dyspnea and Denies dyspnea on exertion GI Denies hematochezia Musc Denies abnormal gait, Denies muscle weakness, Denies numbness, Denies radiating pain into limb and Denies tingling Neuro Denies abnormal gait, Denies dizziness, Denies frequent falls, Denies numbness, Denies tingling and Denies weakness Endo Denies fatigue and Denies palpitations Physical Exam Vital Signs: Last Vital Signs Pulse 64 04/30/25 11:02 BP 130/62 04/30/25 11:02 BMI result Body Mass Index 52.5 GENERAL APPEARANCE: in no acute distress, morbidly obese. NECK: no carotid bruit, no jugular venous distention. SKIN: Chronic lymphedema bilateral lower extremities. HEART: no murmurs, irregular rate and rhythm. LUNGS: clear to auscultation bilaterally. ABDOMEN: soft, nontender. EXTREMITIES: Chronic lymphedema. PERIPHERAL PULSES: equal. NEUROLOGIC: No gross deficits, AAO X 3 Office Procedures EKG Details: Atrial fibrillation 64 beats per minute, normal axis, QTC 439 milliseconds. 91651-[id number], Complete Assessment & Plan Assessment & Plan (1) Diastolic heart failure: Code(s): I50.30 - Unspecified diastolic (congestive) heart failure Category: Medical (2) Persistent atrial fibrillation: Code(s): I48.19 - Other persistent atrial fibrillation Category: Medical Plan 59-year-old gentleman who is here for follow-up. He has complex medical history including morbid obesity and paroxysmal atrial fibrillation. He was previously treated with sotalol with some success but then had breakthrough atrial fibrillation episodes with RVR. After discussion he was started on amiodarone. He is currently taking amiodarone and continues to be in atrial fibrillation. He also had 4 episodes of urinary tract infection while taking Farxiga. I have advised him to stop the Farxiga at this stage. Given the fact that he is in AFib and has no symptoms, I have advised him to stop the amiodarone. For his age this is not a long-term drug. Also given morbid obesity I am not sure he will be a good candidate for ablation. I think we will monitor him and if he has any symptoms of atrial fibrillation in the future then we will change our strategy accordingly. Follow-up in 4 months. Thank you for allowing me to participate in the care of your patient. Please feel free to contact me if you have any questions. Coding Level of Care Code Est Pt Level 4 (76330) Diagnoses Diastolic heart failure I50.30 Persistent atrial fibrillation I48.19 CPT Codes EKG - CPT: 93482-Roopbzvcaffykiswr, Complete ([id number])
[2025-04-30 11:02] VITALS: BP 130/62; PULSE 64; BMI 52.5
--- OUTSIDE RECORDS SUMMARY | 2025-04-30 11:09 | XMS_ITS | Clinical Summary ---
Author Organization [facility] Address [address] [place] [address] Care Team Providers Care Poultry Offal Worker Name Role Phone Destiny Trinidad MD Primary Care Provider [phone] Steven Ch MD Unavailable [phone] Allergies Active Allergy Reactions Criticality Noted [...] (three) times a day. Active nystatin (MYCOSTATIN) 401851 UNIT/GM cream Apply topically 2 (two) times [...] Dates Next Due Covid-19 MRNA Vaccine - Diabetes [employer] 12+ (Purple Cap) 10/13/2021 Family History Medical [...] complete this [place] [id number] [facility] MEDICARE [facility] Care Teams Poultry Offal Worker Relationship Specialty Start Date End Date Destiny Trinidad MD [address] [address] PCP - General 09/25/21 Steven Ch MD [address] [place] [address] 3rd [place] [address] Automobile Damage Appraiser Cardiovascular Disease 09/25/21
--- OUTSIDE RECORDS SUMMARY | 2025-04-30 11:09 | XMS_ITS | Patient Health Record ---
Author Organization [facility] Address [address] [place] [address] [place] [id number] Care Team Providers Care Collar Trimmer Name Role Phone SHIRA DOUGLAS MD Primary Care Provider Unav ailable JAVIDPAYTON IKE Unavailable [phone] Allergies Allergen (clinical drug ingredient) Drug/Non Drug Allergy documented on EMR Reaction Allergy Type Onset Date Status amoxicillin Amoxicillin hives Drug Allergy Act arthur sulfadiazine sulfADIAZINE hives Drug Allergy A ctive Reason For Referral No Information Medications Medication SIG (Take, Route, Frequency, Duration) Notes Start Date End Date Status Iron 1 PO *Please review a nd pick correct strength-formulatio n from [facility] options. If intended option is not shown, [...] Date MEDICARE [address] [place] [address] [id number] Jan Redd Self - patient is the insured [facility] [address] [address] [place] [address] [id number] Jan Redd Self - patient is the insured Medical (General) History Medical History History ICD Code Esophageal reflux spinal stenosis diabetes mallitus Edema blood clots Surgical History Surgery Date(Month/Year) gastric bypass 2003 Hospitalization History Reason Date(Month/Year) medication reaction 2011
--- OUTSIDE RECORDS SUMMARY | 2025-04-30 11:09 | XMS_ITS | Encounter Summary ---
Author Organization [facility] Address [address] [place] [address] Care Team Providers Care Supervisor Carding Name Role Phone Damion Maynard MD Primary Care Provider U Destiny Dewey MD Primary Care Provider [phone] Encounter Details Date Type Department Care Team (Late st Contact Info) Description 08/19/2016 Telephone [facility] General Vascular Surgery [address] [facility] [address] [place] [id number] Shira Meyers NP Social History Tobacco Use [...] on filedocumented in this encounter Care Teams Supervisor Carding Relationship Specialty Start Date End Date Damion Maynard MD PCP - General Family Medicine 05/20/16 12/21/17 Destiny Trinidad MD [facility] [address] [place] [address] PCP - General Family Medicine 12/22/17 documented as of this encounter
== END 2025-04-30 11:21 | disposition home or self-care (01) ==
LOC: HO.HCS 10:26
PROVIDERS: PCP Family Medicine; Visit Provider Internal Medicine Cardiovascular Disease
DX: I50.30 Unspecified diastolic (congestive) heart failure (principal); I48.19 Other persistent atrial fibrillation
CPT/HCPCS: 93010; 99214

== ENCOUNTER → 2025-04-30 10:25 | Outpatient (BNVA) | payer MEDICARE, MEDICAID, SELFPAY | PROVIDERS: PCP Family Medicine; Visit Provider Internal Medicine Cardiovascular Disease | DX: I11.0 Hypertensive heart disease with heart failure (principal); I50.30 Unspecified diastolic (congestive) heart failure; I48.19 Other persistent atrial fibrillation | CPT/HCPCS: 93005; 99212 ==

== ENCOUNTER 2025-07-02 10:03 | Outpatient (AMB) | payer MEDICARE, MEDICAID, SELFPAY ==
--- NOTE | 2025-07-02 10:25 | MHC.OFFVIS ---
Vital Signs 07/02/25 10:27 Height 5 ft 9 in BMI Reason not done Patient refused/unable BP 143/68 H Position Sitting Pulse 77 Intake Visit Reasons: 6 month f.u Intake Note: Jan presents in the office sa a 6 month follow up. CC: States he had kidney stones removed and spent a week at [facility]. States he has gas that leaks Reforestation Worker Required: No Allergies cefaclor (From Ceclor) Allergy (Severe, Verified 07/02/25 10:28) hives epanolol Allergy (Severe, Verified 07/02/25 10:28) hives misoprostol Allergy (Severe, Verified 07/02/25 10:28) rash NSAIDS (Non-Steroidal Anti-Inflamma Allergy (Severe, Verified 07/02/25 10:28) GI upset Penicillins Allergy (Severe, Verified 07/02/25 10:28) hives, rash, itching Sulfa (Sulfonamide Antibiotics) Allergy (Severe, Verified 07/02/25 10:28) Hives Cephalosporins Allergy (Intermediate, Verified 07/02/25 10:28) hives amoxicillin Allergy (Mild, Verified 07/02/25 10:28) rash vancomycin Allergy (Mild, Verified 07/02/25 10:28) itching clindamycin Adverse Reaction (Intermediate, Verified 07/02/25 10:28) Rash HPI HPI 6 month f.u: Details: 59 y/o male chronic bowel issues- here for f/u Recap: he has been having abn bowel habits with variation in bowel habits he has loose stools maybe twice a week stools can smell bad can look oily as well no blood in stool he had allergy tests done and were negative weight has been stable he has eye surgeries and spine surgery coming up refluc controlled with PPI rarely uses oxycodone, few times a month he had been on welchol, simehticone trials. recnetly sent FODMAP diet as well TESTS: colonoscopy: 10/2022-- nml incl biopsies CTe: herniated stomach pouch, degen spine changes, stent -aorta INTERIM: He has some wetness with gas he eats TV dinners but does make food he is taking creon but not with the food no abdominal pain good appetite no nausea or vomiting he has poor mobility, will use scooter or wheelchair on ozempic and lost 50# EXAM: GENERAL: The patient is obese, VITAL SIGNS:see workflow HEENT: Nonicteric sclerae, PERRLA, EOMI. Oropharynx clear. Moist mucous membranes. Conjunctivae appear well perfused. No thyroid mass. CHEST: Chest wall is nontender. HEART: Regular rate and rhythm without murmurs. LUNGS: Clear to auscultation bilaterally. ABDOMEN: Soft, positive bowel sounds, nontender, no organomegaly.no flank tenderness SKIN: No rash, no excessive bruising, petechiae, or purpura. NEUROLOGIC: Cranial nerves II-XII intact without motor/sensory deficit. Pscyh: nml affect A/P: 1/ Pacn insuff prob from hx of gastric bypass, some gas sx with wetness, but diet not good and not taking creon correctly PLAN: /1 - advised on diet, avoid TV dinners and drinks, try creon with food, and if ongoing then probiotics and maybe trial of abx for possible SIBO PFSH Medical History Nocturnal hypoxemia Somnolence, daytime Loud snoring SHAYLA (obstructive sleep apnea) Paroxysmal A-fib Atrial flutter PAF (paroxysmal atrial fibrillation) On beta paty at home On anticoagulant therapy SHAYLA on CPAP Bronchial asthma Restrictive lung disease Migration of vascular stent Pulmonary embolus Family history of stent Uncomplicated opioid dependence Lymphedema Lumbar disc disease Venous stasis Hyperlipidemia Neurogenic bladder Dyspnea Lumbar disc prolapse with root compression History of kidney stones GERD (gastroesophageal reflux disease) OA (osteoarthritis) Morbid obesity Asthma Depression Essential hypertension Surgical History Hx of cervical spine surgery S/P IVC filter S/P appendectomy Hx of colonoscopy History of esophagogastroduodenoscopy (EGD) Hx of eye surgery Hx of gastric bypass Family History Mother Diabetes Father Brain cancer Sister Diabetes Sister Diabetes Sister Diabetes Brother Blind Brother No problems noted. Brother No problems noted. Brother No problems noted. Brother No problems noted. Daughter No problems noted. Daughter Mental health disorder Son Mental health disorder Son No problems noted. Son No problems noted. Social History Household Members: Spouse and Children Household Members Other:: - 5 kids Housing: House Are you a primary outdoor emergency care technician to a significant other at home: No Do you presently have visiting nurse or other home services: No Alcohol intake: former Year quit: 1979 Comment: uses cane at times- knee gives out Patient Tobacco Use Status: Never used Tobacco Second Hand Smoke Exposure: No Advance Directives Date on File: 08/14/21 service: No Current occupational status: disabled Current occupation: rt handed Physical Exam Vital Signs: Last Vital Signs Pulse 77 07/02/25 10:27 BP 143/68 H 07/02/25 10:27 Assessment & Plan Assessment & Plan (1) Pancreatic insufficiency: Code(s): K86.89 - Other specified diseases of pancreas Category: Medical Plan: as above Coding Level of Care Code Est Pt Level 3 (78777) Diagnoses Pancreatic insufficiency K86.89
[2025-07-02 10:27] VITALS: BP 143/68; PULSE 77
--- OUTSIDE RECORDS SUMMARY | 2025-07-02 12:36 | XMS_ITS | Encounter Summary ---
Author Organization [facility] Address [address] [place] [address] Care Team Providers Care Pantomimist Name Role Phone Damion Maynard MD Primary Care Provider U Destiny Dewey MD Primary Care Provider [phone] Reason for Visit * Reason Comments Appointment tomorrow Unna Boot Application Encounter Details Date Type Department Care Team (Late st Contact Info) Description 02/16/2017 Telephone [facility] General Vascular Surgery [address] [facility] [address] [place] [address] Shira Meyers NP Appointment (tomorrow); Unna Boot [...] he is seeing a doctor at the [facility] in [place] at 10:30 - a Dr. Zelaya-who is going to want to talk to Shira Meyers about his situation. So patient is asking to be seen in time tomorrow to get to his 10 30 appointment in [place] He will be cancelling his other [place] appointment with Podiatry at 8:30. Please advise [phone] documented in this encounter Plan of Treatment Not on file documented as of this encounter Visit Diagnoses Not on filedocumented in this encounter Care Teams Pantomimist Relationship Specialty Start Date End Date Damion Maynard MD PCP - General Family Medicine 05/20/16 12/21/17 Destiny Trinidad MD [facility] [address] [place] [address] PCP - General Family Medicine 12/22/17 documented as of this encounter
--- OUTSIDE RECORDS SUMMARY | 2025-07-02 12:36 | XMS_ITS | Encounter Summary ---
Author Organization [facility] Address [address] [place] [id number] Care Team Providers Care Content Engineer Name Role Phone Destiny Trinidad MD Primary Care Provider [phone] Steven Ch MD Unavailable [phone] Encounter Details Date Type Department Care Team (Late st Contact Info) Description 09/24/2021 Prep for Surgery [facility] [address] [place] [phone] Nav Simmons PA-C [address] [place] [id number] Preop examination (Primary Dx) Social History Tobacco [...] examination documented in this encounter Care Teams Content Engineer Relationship Specialty Start Date End Date Destiny Trinidad MD [address] [address] PCP - General 09/25/21 Steven Ch MD [address] [place] [address] 3[address] [place] [address] Pyrotechnics Press Tender Cardiovascular Disease 09/25/21 documented as of this encounter
--- OUTSIDE RECORDS SUMMARY | 2025-07-02 12:36 | XMS_ITS | Patient Health Record ---
Author Organization [facility] Address [address] [place] [address] [place] [phone] Care Team Providers Care Patternmaker Pressure Cast Name Role Phone SHIRA DOUGLAS MD Primary Care Provider Unav ailable JAVIDPAYTON IKE Unavailable [phone] Allergies Allergen (clinical drug ingredient) Drug/Non Drug [...] Status W/U Status Risk Notes Problem Adverse drug effect (11723876) Adverse Effect Of Drug (995.20) Active confirmed Plan Of Treatment No Information Insurance Providers Payer Name Payer Address Payer Phone Subscriber Number Group Number Insured Name Patient Relationship to Insured Coverage Start Date Coverage End Date MEDICARE [address] [place] [id number] Rhina clarker Jan Self - patient is the insured [facility] [address] [address] [place] [address] [id number] Rhina jovel Jan Self - patient is the insured Medical (General) History Medical History History ICD Code Esophageal reflux spinal stenosis diabetes mallitus Edema blood clots Surgical History Surgery Date(Month/Year) gastric bypass 2003 Hospitalization History Reason Date(Month/Year) medication reaction 2011
--- OUTSIDE RECORDS SUMMARY | 2025-07-02 12:36 | XMS_ITS | Clinical Summary ---
Author Organization [facility] Address [address] [place] [address] Care Team Providers Care Cloth Pattern Maker Name Role Phone Destiny Trinidad MD Primary Care Provider [phone] Steven Ch MD Unavailable [phone] Allergies Active Allergy Reactions Criticality Noted [...] (three) times a day. Active nystatin (MYCOSTATIN) 573501 UNIT/GM cream Apply topically 2 (two) times [...] Dates Next Due Covid-19 MRNA Vaccine - [employer] 12+ (Purple Cap) 10/13/2021 Family History Medical [...] Zoster (Shingles) Vaccine (1 of 2) 2014 RSV Vaccine 60 years and older and Patients (1 - Risk 60-74 years 1-dose series) 2024 Influenza Vaccine 05/18/2025 06/17/2021, 08/07/2014, 06/24/2012 COVID-19 Vaccine (4 - 2024-2 6 season) 2025 10/13/2021, 01/08/2021, 12/18/2020 Hepatitis B Vaccines Aged Out No long er eligible based on patient's age to complete [place] [phone] [facility] MEDICARE [facility] Care Teams Cloth Pattern Maker Relationship Specialty Start Date End Date Destiny Trinidad MD [address] [address] PCP - General 09/25/21 Steven Ch MD [address] [place] [address] 3rd [place] [address] Route Vending Machine Servicer Cardiovascular Disease 09/25/21
--- OUTSIDE RECORDS SUMMARY | 2025-07-02 12:36 | XMS_ITS | Clinical Summary ---
Author Organization [facility] Address [address] [place] [address] Phone Care Team Providers Care Wood Grainer Name Role Phone Destiny Trinidad MD Primary Care Provider [phone] Allergies Active Allergy Reactions Criticality Noted Date Comments Amoxicillin Unknown 05/19/2006 Cephalosporins Hives High 11/20/2011 Clindamycin Fever,Rash High 09/19/2021 Epanolol Hives Medium 10/24/2021 Misoprostol Other (See Comments) 05/19/2006 Diarrhea Nsaids (Non-Steroidal Anti-Inflammatory Drug) GI Upset High 08/22/2012 Penicillins Hives,Itching,Rash 11/11/2011 Sulfa (Sulfonamide Antibiotics) Hives,Unknown High 05/19/2006 Vancomycin Bronchospasm,Hives,I tch ing High 01/18/2016 Medications cyanocobalamin 500 MCG tablet Dose: 500 MCG; Form: Take 1 TABLET; Route: PO; Frequency: QD; Directions: Not available; Details: Dispense: 30 Tablet(s); Date: 04/28/2017 7 Active sodium chloride (KINGS 128) 5 % ophthalmic solution INSTILL 1 DROP 4 TIMES DAILY TO BOTH EYES. 0 Active nystatin cream APPLY TO AFFECTED AREA EVERY DAY NEEDED 120 g 1 2 Active cholecalciferol (VITAMIN D3) 2,000 unit tablet Take 2,000 Units by mouth daily. 2 Active apixaban (ELIQUIS) 5 mg tablet Take 1 tablet (5 mg total) by mouth 2 (two) times a day. 180 tablet 3 3 Active multivitamin (DAILY-ARPITA) per tablet Take 1 tablet by mouth daily. 90 tablet 3 4 Active calcium carbonate-vitamin D3 1500 mg (600 mg elemental)-400 units per tablet Take 1 tablet by mouth daily. 90 tablet 2 4 Active fluticasone propionate 50 mcg/actuation diskus inhaler Inhale 1 puff into the lungs 2 (two) times a day. 3 each 3 4 Active GEMTESA 75 mg tablet Take 75 mg by mouth daily. 4 Active tirzepatide, weight loss, (ZEPBOUND) 2.5 mg/0.5 mL subcutaneous pen Inject 0.5 mL (2.5 mg total) under the skin every 7 days. 2 mL 4 Active omeprazole (PRILOSEC) 40 MG capsule Take 1 capsule (40 mg total) by mouth daily. 90 capsule 3 4 Active FARXIGA 10 mg tablet Take 1 tablet (10 mg total) by mouth every morning. 90 tablet 3 4 Active multivitamin with folic acid (DAILY-ARPITA, WITH FOLIC ACID,) 400 mcg tablet Take 1 tablet by mouth daily 90 tablet 3 4 Active iron, ferronyl,-vitamin C (VITRON-C) 65 mg iron- 125 mg TbEC Take 1 tablet by mouth daily. 90 tablet 3 4 Active amiodarone (PACERONE) 200 MG tablet Take 1 tablet (200 mg total) by mouth daily. NOTE: for first two weeks, take 2 tabs BID 5 Active tamsulosin (FLOMAX) 0.4 mg Cap TAKE 1 CAPSULE BY MOUTH EVERY DAY 90 capsule 3 5 Active ferrous sulfate 325 mg (65 mg [place] iron) tablet TAKE 1 TABLET BY MOUTH DAILY WITH BREAKFAST. 90 tablet 3 5 Active metoprolol tartrate (LOPRESSOR) 50 MG tablet Take 50 mg by mouth 2 (two) times a day. 5 Active metoprolol tartrate (LOPRESSOR) 50 MG tablet Take 1 tablet (50 mg total) by mouth 2 (two) times a day. 5 Active sertraline (ZOLOFT) 100 MG tablet Take 1 tablet (100 mg total) by mouth daily. 90 tablet 3 5 Active tirzepatide, weight loss, (ZEPBOUND) 5 mg/0.5 mL subcutaneous pen Inject 0.5 mL (5 mg total) under the skin every 7 days. 2 mL 4 5 Active oxyBUTYnin (DITROPAN XL) 15 MG 24 hr tablet Take 1 tablet (15 mg total) by mouth daily. 90 tablet 4 5 Active cyclobenzaprine (FLEXERIL) 5 MG tablet Take 1 tablet (5 mg total) by mouth 3 (three) times a day as needed (spasm). 60 tablet 1 5 Active diphenoxylate-atr opine (LOMOTIL) 2.5-0.025 mg/5 mL liquid Take 10 mL by mouth 4 (four) times a day as needed (diarrhea). 60 mL 5 5 Active montelukast (SINGULAIR) 10 mg tablet Take 1 tablet (10 mg total) by mouth nightly at bedtime. at bedtime. 90 tablet 1 5 Active gabapentin (NEURONTIN) 300 MG capsule Take 1 capsule (300 mg total) by mouth 3 (three) times a day. 270 capsule 3 5 08/13/20 25 Active oxyCODONE 5 MG immediate release tablet Take 1 tablet (5 mg total) by mouth daily as needed for pain (specific location in comments) (back pain). Pt. may request partial fill. Use sparingly. Mass PAT checked. 30 tablet 5 Active Active Problems Patient Care Coordination No te Formatting of this note is d ifferent from the original. *PLEASE DO NOT REMOVE OR MODIFY CHART REFERENCES AND TMP NOTATIONS - THANK YOU!* (Please contact TMP Reviewer via e-mail to inform of any errors) (for a Quick Reference List of common [facility] diagnoses and requirements, click here: TMP) 2019 TMP Consider billing: DX: Morbid Obesity/E66.01 ([facility] 22) DX: Intermittent Afib/I48.0 ([facility] 96) DX: Major Depression/F33.9 ([facility] 59)1 DX: Aortic Ectasia/I77.819 ([facility] 108)2 JDW 12/07 1long term SSRI use; document at least 4 DSM-IV Criteria in addition to medication/therapy, or qualifying PHQ-9 w/ score of 10+ to bill The specific DSM-5 criteria for major depressive disorder are outlined below. At least 5 of the following symptoms have to have been present during the same 2-week period (and at least 1 of the symptoms must be diminished interest/pleasure or depressed mood) [2] : Depressed mood: For children and adolescents, this can also be an irritable mood Diminished interest or loss of pleasure in almost all activities (anhedonia) Significant weight change or appetite disturbance: For children, this can be failure to achieve expected weight gain Sleep disturbance (insomnia or hypersomnia) Psychomotor agitation or retardation Fatigue or loss of energy Feelings of worthlessness Diminished ability to think or concentrate; indecisiveness Recurrent thoughts of , recurrent suicidal ideation without a specific plan, or a suicide attempt or specific plan for committing suicide [2] [employer]. Diagnostic and Statistical Manual of Mental Disorders, Fifth Edition. [place], [place]: [employer]; 2013. 2ECHO 09/04/2019 Problem Noted Date Diagnosed Date Osteoarthritis of cervical spine with myelopathy 11/16/2023 Nontraumatic incomplete tear of left rotator cuf f 11/16/2023 Venous stasis 04/27/2019 Hyperlipidemia, unspecified 04/05/2018 Intermittent atrial fibrillation 03/22/2018 Overview (12/06/2019): [facility] 07/14/2019 Kidney stones 10/08/2017 Lymphedema 10/08/2017 Other sleep apnea 10/08/2017 Lumbar disc prolapse with root compression 07/03 Overview (09/24/2015): Lumbar disc prolapse with radiculopathy Neurogenic bladder 12/31/2014 Overview (04/27/2019): Overview: Neurogenic Bladder Urge incontinence of urine 12/31/2014 Overview (04/27/2019): Overview: Urge Incontinence Of Urine Gastroesophageal reflux disease 03/23/2012 Overview (12/08/2014): Gastroesophageal reflux disease Dyspnea 03/23/2012 Overview (12/08/2014): Shortness of breath - improved Hypertensive disorder 10/28/2009 Overview (12/08/2014): Hypertension Assessment & Plan (06/29/2017 3:31 PM EDT): Controlled currently. Asthma 05/19/2006 Overview (12/08/2014): Asthma Major depressive disorder wi th single episode, in full remission 05/19/2006 Overview (12/08/2014): Depression Assessment & Plan (06/29/2017 3:30 PM EDT): He remains on zoloft and has mild to moderate sxs; no suicidal ideation. Morbid obesity 05/19/2006 Overview (12/06/2019): Morbid obesity - improved Body mass index is 59.39 kg/m . 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 Osteoarthritis 05/19/2006 Overview (12/08/2014): Degenerative joint disease - improved Resolved Problems Problem Noted Date Diagnosed Date Resolved Date Uncomplicated opioid dependence 12/07/2019 12/05/2024 Lumbar disc disease 06/14/2018 11/16/19 24 Overview (06/14/2018): Needs Fixed Height Hospital Bed -- thepatient requires positioning of the body in ways nto feasible with an ordinary bed in order to alleviate pain Assessment & Plan (06/14/2018 7:31 PM EDT): Note: Heavy Duty extra wide hospital bed needed - he meets criteria for hospital bed (see above) and he weights 384 lbs Generalized edema 04/05/2018 11/16/2023 Medical home 03/17/2018 06/27/2018 Pulmonary embolism 10/08/2017 0 Uncoded Venous stasis / lymph edema 03/23/2012 10/08/2017 Overview (12/08/2014): Venous stasis / lymph edema Sepsis 03/23/2012 12/06/2019 Overview (12/08/2014): Sepsis; ICU 2010 Assessment & Plan (06/29/2017 3:30 PM EDT): resolved Kidney stones 05/19/2006 10/08/2017 Overview (12/08/2014): Kidney stones Deep vein thrombosis 05/19/2006 020 Overview (12/08/2014): Deep venous thrombosis Assessment & Plan (06/29/2017 3:29 PM EDT): Continue on coumadin; INR 2.3 today Pulmonary embolism 05/19/2006 7 Overview (12/08/2014): Pulmonary embolism Uncoded Repeat DVT 05/19/2006 7 Overview (12/08/2014): Repeat DVT Superficial phlebitis 05/19/20062016 Overview (12/08/2014): Superficial phlebitis Uncoded Fen-phen 05/19/2006 10/08/2017 Overview (12/08/2014): Fen-phen Sleep apnea 05/19/2006 10/08/2017 Overview (12/08/2014): Sleep apnea; Positive study 05/12/12 Encounters Date Type Department Care Team Description 04/19/2025 Refill [facility] [address] [place] [address] Adilia Mack CNP Med Change Request 04/10/2025 9:30 AM EDT Office Visit [facility] [address] [place] [address] Destiny Trinidad MD Hypertension, unspecified type (Primary Dx); Hospital discharge follow-up; Morbid obesity 04/02/2025 Telephone [facility] [address] [place] [address] Destiny Trinidad MD from Last 3 Months Immunizations Immunization Administration Dates Next Due COVID-19 (Pre-08/09) Pfizer Vaccine, mRNA, PF 05/21/2022,10/13/2021,01/08/2021,12/18 COVID-19, Unspecified Formulation 10/15/2021 INFLUENZA, SPLIT VIRUS, TRIV ALENT W/ PRESERVATIVE IM 06/24/2012 Influenza Quadrivalent Prese rvative Free IM 06/17/2021,08/07/2014 Influenza Quadrivalent w/ Pr eservative IM 11/16/2023,07/06/2019,08/02/2018,06/29,08/07/2016,07/02/2015 Influenza Recombinant Blank valent Preservative Free IM 07/21/2022 Influenza, Unspecified Formulation 05/25(Deferred: Other - , Ordered By: [id number]) Pneumococcal conjugate PCV13 09/22/2017 Pneumococcal conjugate PCV21 12/05/2024 Pneumococcal polysaccharide PPSV23 09/25,11/24/2012(Deferred: Other - , Ordered By: [id number]) Tdap 12/07/2019,,05/25/2013(Defer red: Other - , Ordered By: [id number]),11/24/2012(Deferred: Other - , Ordered By: [id number]) Zoster recombinant 07/22/2022,05/06/2022 Family History Medical History Relation Comments Coronary artery disease Brother FH: zac ature coronary heart disease Type 2 Diabetes Unspecified 1 diabetes mellitu s type 2 Hypertension Unspecified 2 hypertension Obesity Unspecified 3 Obesity Uncoded Family History Unspecified 4 Cancer Relation Status Comments Brother Unspecified 1 Unspecified 2 Unspecified 3 Unspecified 4 Social History Tobacco Use Types Packs/Day Years Used Date Smoking Tobacco: Former Cigarettes 1 7 1 979 - 1985 Smokeless Tobacco: Never Tobacco Cessation:Counseling Given: Not Answered Education Answer Date Recorded Are you interested in more education? Not on greg e 02/12/2023 Are you concerned about learning? Not on file 02/12/2023 No 02/12/2023 No 02/12/2023 Digital Access Answer Date Recorded No 03/14/2023 No 03/14/2023 Reliable internet access at home? Not on file 03/14/2023 Device with a working camera? Not on file Sex and Gender Information Value Date Recorded Sex Assigned at Not on file Legal Sex Male 6:46 PM EST Gender Identity Not on file Sexual Orientation Not on file Last Filed Vital Signs Vital Sign Reading Time Taken Comments Blood Pressure 114/66 04/10/2025 9:32 AM EDT Pulse 63 04/10/2025 9:32 AM EDT Temperature 36.6 C (97.9 F) 06/29/2017 2:59 PM EDT Respiratory Rate 18 04/05/2018 9:32 AM EDT Oxygen Saturation 96% 04/10/2025 9:32 AM EDT Inhaled Oxygen Concentration - - Weight 161.5 kg (356 lb) 04/10/2025 9:32 AM EDT Height 175.3 cm (5' 9 ) 12/05/2024 3:07 PM EST Body Mass Index 52.57 12/05/2024 3:07 PM EST Plan of Treatment Upcoming Encounters Date Type Department Care Team (Late st Contact Info) Description 09/18/2025 10:30 AM EST Follow-Up [facility] [address] [place] [address] Destiny Trinidad MD [address] [place] [address] [email or web address] Health Maintenance Due Date Last Done Comments COLOGUARD 2009 FIT TEST 2009 FOBT 2009 SIGMOIDOSCOPY 2009 VIRTUAL COLONOSCOPY 2009 TSH LEVEL 01/02/2023 01/02/2022, 05/19, 09/07/2019, Additional history exists RSV VACCINE (1 - Risk 60-74 years 1-dose series) 2024 INFLUENZA VACCINE (#1) 2025 , 07/21/2022, 06/17/2021, Additional history exists COVID-19 VACCINE ( season) 2025 05/21/2022, 05/21/2022, 10/15/2021, Additional history exists BLOOD PRESSURE 10/10/2025 04/10/2025 ALT LEVEL (ALANINE AMINOTRANSFERASE) 12/05/2025 12/05/2024, 04/25/2024, 11/16/2023, Additional history exists CREATININE LEVEL 12/05/2025 12/05/2024, 06/2024, 11/16/2023, Additional history exists DEPRESSION SCREENING 12/05/2025 12/05/2024, 12/05/19 25 SCREENING FOR DIABETES 12/05/2027 12/05/2024, 2024 LIPID PANEL 12/05/2029 12/05/2024, 10/20, 05/25/2023, Additional history exists Adult Td,Tdap Booster 12/07/2029 12/07/2019, 020 COLONOSCOPY 10/29/2032 10/29/2022, 10/18/2014 COLORECTAL CANCER SCREENING 10/29/2032 HEPATITIS C SCREENING Completed 09/07/2019, 019 ZOSTER VACCINES Completed 07/22/2022, 05/06/2022 PNEUMOCOCCAL VACCINES (50+ years) Completed 12/05/2024, 09/25/2017, 09/22/2017 SMOKING STATUS SCREENING (Once After 26 Yrs) Completed 04/10/2025 HEPATITIS A VACCINES Aged Out No long er eligible based on patient's age to complete this topic HIB VACCINES Aged Out No longer eligi ble based on patient's age to complete this topic MENINGOCOCCAL VACCINES (ACWY) Aged Out No longer eligible based on patient's age to complete this topic MENINGOCOCCAL VACCINES (B) Aged Out N o longer eligible based on patient's age to complete this topic Goals Goal Patient Goal Type Associated Problems Recent Progress Patient-Stated? Author Care Engagement Care Management No Destiny Trinidad MD Note: Care Engagement My Care Team s Treatment Goal for Me is: Weight loss What About My Health Do I Want to Improve? Weight loss so that he is able to have knee replacement surgery What Day-to-Day Challenges Do I Face When I Try to Improve My Health? Pain from disc disease and osteoarthritis Our Plan to Improve My Health at Home and Overcome My Day-to-Day Challenges: Weight loss of 2 lbs per week Goal of 100 lb weight loss in 1 year I will work on this plan with the aim of reaching my goals and we will review my progress at my next annual physical. Medical Devices Not on file Procedures Procedure Name Priority Date/Time Associated Diagnosis Comments LIPID PANEL Routine 12/05/2024 6:53 PM EST Annual physical exam COMPREHENSIVE METABOLIC PANEL Routine 12/05/2024 6:53 PM EST Annual physical exam HM COLONOSCOPY FOR RESULT ENTRY ONLY Routine 10/29/2022 TSH Routine 01/02/2022 2:19 PM EDT Morbid obesity HEPATITIS C ANTIBODY, QUALITATIVE Routine 09/07/2019 2:27 PM EST from Last 3 Months or Most Recently Relevant to Health Maintenance Results * (ABNORMAL) Comprehensive metabolic panel (12/05/2024 6:53 PM EST) Sodium 139 135 - 146 mEq/L [facility] Potassium 4.4 3.5 - 5.3 mEq/L [facility] Chloride 104 98 - 107 mEq/L [facility] CO2 26 20 - 31 mEq/L [facility] Anion Gap 9 4 - 14 [facility] Glucose 90 70 - 99 mg/dL [facility] BUN 16 6 - 20 mg/dL [facility] Creatinine 0.8(L) 0.9 - 1.3 mg/dL [facility] GFR >100 >60 mL/min/1.7 3m^2 [facility] Calcium 8.8 8.4 - 10.2 mg/dL [facility] Corrected Calcium 9.0 8.4 - 10.2 mg/dL [facility] Protein, Total 7.2 6.2 - 8.2 g/dL [facility] Alkaline Phosphatase 80 0 - 130 U/L [facility] Albumin 3.8 3.4 - 5.2 g/dL [facility] ALT (SGPT) 10 0 - 40 U/L [facility] AST (SGOT) 19 0 - 33 U/L [facility] Bilirubin, Total 0.5 0.3 - 1.2 mg/dL [facility] Blood 12/05/2024 6:53 PM EST 12/05/2024 6:53 PM EST Narrative Resulting Agency Comment No Result [facility] Destiyn Trinidad MD LAB BLOOD ORDERABLES Final Re sult Performing Organization Address [facility] Co de Phone Number [facility] [address] [place] [address] * (ABNORMAL) Lipid panel (12/05/2024 6:53 PM EST) Cholesterol 157 <200 mg/dL [facility] Triglycerides 105 <150 mg/dL [facility] Cholesterol, HDL 37(L) >40 mg/dL [facility] LDL Cholesterol, Calculated 99 <129 mg/dL [facility] Cholesterol/HDL Ratio 4.24 <4.96 [facility] Blood 12/05/2024 6:53 PM EST 12/05/2024 6:53 PM EST Narrative Resulting Agency Comment No Result [facility] Destiny Trinidad MD LAB BLOOD ORDERABLES Final Re sult Performing Organization Address [facility] Co de Phone Number [facility] [address] [place] [address] * HM COLONOSCOPY FOR RESULT ENTRY ONLY (10/29/2022) Historical Provider HEALTH MAINTENANCE Final Result * TSH (01/02/2022 2:19 PM EDT) TSH 3.11 0.35 - 5.50 uIU/mL [facility] Blood 01/02/2022 2:19 PM EDT 01/02/2022 2:19 PM EDT Destiny Trinidad MD LAB BLOOD ORDERABLES Final Re sult Performing Organization Address [facility] [place] [address] * Hepatitis C antibody, qualitative (09/07/2019 2:27 PM EST) HepC AB Non Reactive Non Reactive;E quivocal;R eactive [facility] 09/07/2019 2:27 PM EST 09/07/2019 2:27 PM EST Vanita Fernandez NP LAB BLOOD ORDERABLES Edited Resu lt - Final Performing Organization Address [facility] [place] [address] from Last 3 Months or Most Recently Relevant to Health Maintenance Insurance [facility] MEDICARE REPLACEMENT MEDICARE REPLACEMENT MEDICARE REPLACEMENT MEDICARE REPLACEMENT [facility] MEDICARE REPLACEMENT [facility] MEDICARE REPLACEMENT [facility] MEDICARE REPLACEMENT MEDICARE REPLACEMENT MEDICARE REPLACEMENT [facility] MEDICARE REPLACEMENT [facility] MEDICARE PART A & B Care Teams Wood Grainer Relationship Specialty Start Date End Date Destiny Trinidad MD [address] [place] [address] [email or web address] PCP - General Family Medicine 06/11/20 Additional Source Comments The information contained in this document represents components of the legal health record. It is not the complete legal health record.[facility]
--- OUTSIDE RECORDS SUMMARY | 2025-07-02 12:36 | XMS_ITS | Encounter Summary ---
Author Organization [facility] Address [address] [place] [address] Phone Care Team Providers Care Early Childhood Lead Teacher Name Role Phone Pcp, Unknown Primary Care Provider Unavailabl Damion Brice MD Unavailable [phone] Raza Alonso MD Unavailable [phone] Gema Hilton NP Unavailable Destiny Trinidad MD Unavailable Malik Nolan DO Unavailable Destiny Trinidad MD Primary Care Provider Destiny Trinidad MD Primary Care Provider [phone] Encounter Details Date Type Department Care Team (Latest Contact Info) Description 06/12/2016 Transcribe Orders [facility] [address] [place] [address] Raza Alonso MD [address] [place] [address], [address] [place] [address] [email or web address] Other chest pain (Primary Dx) Social History Tobacco Use Types Packs/Day Years Used Date Smoking Tobacco: Former Sex and Gender Information Value Date Recorded Sex Assigned at Not on file Legal Sex Male 6:46 PM EST Gender Identity Not on file Sexual Orientation Not on file documented as of this encounter Plan of Treatment Upcoming Encounters Date Type Department Care Team ([facility] st Contact Info) Description 09/18/2025 10:30 AM EST Follow-Up [facility] [address] [place] [address] Destiny Tirnidad MD [address] [place] [address] [email or web address] documented as of this encounter Visit Diagnoses Diagnosis Other chest pain- Primary documented in this encounter Care Teams Early Childhood Lead Teacher Relationship Specialty Start Date End Date Pcp, Unknown PCP - General 06/01/16 05/23/17 Destiny Trinidad MD [address] [place] [address] [email or web address] PCP - General Family Medicine 05/24/17 06/10/20 Destiny Trinidad MD [address] [place] [id number] [email or web address] PCP - General Family Medicine 06/11/20 Damion Maynard MD [address] [place] [address] [address] [place] [address] Historical LMR Provider 05/01/17 7 Raza Alonso MD [address] [place] [address] [address] [place] [address] [email or web address] Historical LMR Provider 05/01/17 05/23/17 Gema Hilton NP [address] [place] [address] Historical LMR Provider 05/01/17 8 7 Destiny Trinidad MD [address] [place] [address] [email or web address] Historical LMR Provider 05/01/17 8 Malik Noaln DO [address] [address] Historical LMR Provider 05/01/17 8 7 documented as of this encounter Additional Source Comments The information contained in this document represents components of the legal health record. It is not the complete legal health record.[facility]
--- OUTSIDE RECORDS SUMMARY | 2025-07-02 12:36 | XMS_ITS | Encounter Summary ---
Author Organization [facility] Address [address] [place] [address] Care Team Providers Care Inspector [employer] Name Role Phone Damion Maynard MD Primary Care Provider U Destiny Dewey MD Primary Care Provider [phone] Encounter Details Date Type Department Care Team (Late st Contact Info) Description 08/19/2016 Telephone [facility] General Vascular Surgery [address] [facility] [address] [place] [id number] Shira Meyers NP Social History Tobacco Use [...] on filedocumented in this encounter Care Teams Inspector [employer] Relationship Specialty Start Date End Date Damion Maynard MD PCP - General Family Medicine 05/20/16 12/21/17 Destiny Trinidad MD [facility] [address] [place] [address] PCP - General Family Medicine 12/22/17 documented as of this encounter
--- OUTSIDE RECORDS SUMMARY | 2025-07-02 12:36 | XMS_ITS | Encounter Summary ---
Author Organization [facility] Address [address] [place] [address] Care Team Providers Care Childhood Teacher Name Role Phone Damion Maynard MD Primary Care Provider U Destiny Dewey MD Primary Care Provider [phone] Reason for Visit * Reason Comments Unna Boot Application Encounter Details Date Type Department Care Team (Late st Contact Info) Description 03/30/2017 Telephone [facility] General Surgery [address] [facility] [address] [place] [address] Shira Meyers NP [employer] Application Social [...] week on schedule0 Please call to advise [phone] documented in this encounter Plan of Treatment Not on file documented as of this encounter Visit Diagnoses Not on filedocumented in this encounter Care Teams Childhood Teacher Relationship Specialty Start Date End Date Damion Maynard MD PCP - General Family Medicine 05/20/16 12/21/17 Destiny Trinidad MD [facility] [address] [place] [id number] PCP - General Family Medicine 12/22/17 documented as of this encounter
--- OUTSIDE RECORDS SUMMARY | 2025-07-02 12:36 | XMS_ITS | Encounter Summary ---
Author Organization [facility] Address [address] [place] [phone] Phone Care Team Providers Care Taxi Servicer Name Role Phone Destiny Trinidad MD Primary Care Provider [phone] Reason for Visit * Reason Comments Med Change Request Encounter Details Date Type Department Care Team (Late st Contact Info) Description 04/19/2025 [facility] [address] [place], [place] [id number] Adilia Mack CNP [address] [place] [address] [email or web address] Med Change Request Social History Tobacco Use Types Packs/Day Years Used Date Smoking Tobacco: Former Cigarettes 1 7 1 979 - 1986 Smokeless Tobacco: Never Education Answer Date Recorded Are you interested [...] Info) Description 09/18/2025 10:30 AM EST Follow-Up [facility] [address] [place] [address] Destiny Trinidad MD [address] [place] [address] [email or web address] documented as of this encounter Goals Goal Patient Goal Type Associated Problems [...] my progress at my next annual physical. documented as of this encounter Visit Diagnoses Not on filedocumented in this encounter Additional Health Concerns Assessment Noted Time PHQ-9 Depression Total Score: 5 12/05/19 25 3:38 PM EST PHQ-2 Depression Total Score: 0 12/05/19 25 3:38 PM EST documented as of this encounter Care Teams Taxi Servicer Relationship Specialty Start Date End Date Destiny Trinidad MD [address] [place] [address] [email or web address] PCP - General Family Medicine 06/11/20 documented as of this encounter Additional Source Comments The information contained in this document represents components of the legal health record. It is not the complete legal health record.[facility]
--- OUTSIDE RECORDS SUMMARY | 2025-07-02 12:37 | XMS_ITS | Continuity of Care Document ---
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 Name Role Phone Destiny Trinidad MD Primary Care Provider [phone] Encounters Date Type Department Care Team Description 03/05/2021 Travel 03/05/2021 11:15 AM EDT Office Visit [facility] [address] [place] [address] Stacey Barber NP Chronic ulcer of right leg, limited to breakdown of skin (Primary Dx) 02/25/2021 Travel 02/25/2021 11:20 AM EDT Office Visit [facility] [address] [place] [address] Stacey Barber NP Chronic ulcer of right leg, limited to breakdown of skin (Primary Dx) 02/17/2021 Travel 02/17/2021 11:45 AM EDT Office Visit [facility] [address] [place] [address] Stacey Barber NP Chronic ulcer of right leg, limited to breakdown of skin (Primary Dx) 02/11/2021 Travel 02/11/2021 12:30 PM EDT Office Visit [facility] [address] [place] [address] Stacey Barber NP Chronic ulcer of right leg, limited to breakdown of skin (Primary Dx) 02/04/2021 Travel 02/04/2021 10:45 AM EDT Office Visit [facility] [address] [place] [address] Stacey Barber NP Chronic ulcer of right leg, limited to breakdown of skin (Primary Dx) 01/29/2021 Travel 01/29/2021 9:00 AM EDT Office Visit [facility] [address] [place] [address] Stacey Barber NP Chronic ulcer of right leg, limited to breakdown of skin (Primary Dx) 01/21/2021 Travel 01/21/2021 1:00 PM EDT Office Visit [facility] [address] [place] [address] Stacey Barber NP Chronic ulcer of right leg, limited to breakdown of skin (Primary Dx) 01/14/2021 Travel 01/14/2021 1:00 PM EDT Office Visit [facility] [address] [place] [address] Stacey Barber NP Chronic ulcer of right leg, limited to breakdown of skin (Primary Dx) 01/08/2021 11:15 AM EDT Office Visit [facility] [address] [place] [address] Stacey Barber NP Chronic ulcer of left leg, limited to breakdown of skin (Primary Dx) 01/03/2021 Travel 01/03/2021 11:00 AM EDT Office Visit [facility] [address] [place] [address] Shira Meyers NP Ulcer of right lower extremity, unspecified ulcer stage (Primary Dx); Lymphedema; Encounter for change or removal of nonsurgical wound dressing 12/24/2020 Travel 12/24/2020 1:00 PM EST Office Visit [facility] [address] [facility] [address] [place] [address] Stacey Barber NP Chronic ulcer of lower extremity, right, with unspecified severity (Primary Dx) 12/10/2020 Travel 12/10/2020 1:15 PM EST Office Visit [facility] [address] [facility] [address] [place] [address] Stacey Barber NP Ulcer of right lower extremity, unspecified ulcer stage (Primary Dx) 12/05/2020 Travel 12/05/2020 1:00 PM EST Office Visit [facility] [address] [facility] [address] [place] [address] Joshua Hendrix MD Chronic ulcer of lower extremity, right, with unspecified severity (Primary Dx) 11/21/2020 Travel 11/21/2020 1:00 PM EST Office Visit [facility] [address] [facility] [address] [place] [address] Stacey Barber NP Chronic ulcer of lower extremity, right, with unspecified severity (Primary Dx); Venous stasis of lower extremity 11/12/2020 Travel 11/12/2020 1:00 PM EST Office Visit [facility] [address] [facility] [address] [place] [address] Stacey Barber NP Ulcer of right lower extremity, unspecified ulcer stage (Primary Dx) 10/29/2020 Travel 10/29/2020 2:40 PM EST Office Visit [facility] [address] [facility] [address] [place] [address] Shira Meyers NP Ulcer of right lower extremity, unspecified ulcer stage (Primary Dx); Lymphedema 03/04/2020 Telephone [facility] [address] [facility] [address] [place] [address] Shira Meyers NP No Show 03/04/2020 Telephone [facility] [address] [facility] [address] [place] [address] St Onge, Shira, BOOKY Equipment/supplies 01/05/2020 9:20 AM EDT Office Visit [facility] [address] [facility] [address] [place] [address] St Onge, Shira, BOOKY Ulcer of right lower extremity, unspecified ulcer stage (Primary Dx); Lymphedema 12/29/2019 Travel 12/29/2019 9:40 AM EDT Office Visit [facility] [address] [facility] [address] [place] [address] [address] Onge, Shira, BOOKY Ulcer of right lower extremity, unspecified ulcer stage (Primary Dx); Ulcer of left lower extremity, unspecified ulcer stage 12/22/2019 9:20 AM EST Nurse Visit [facility] [address] [facility] [address] [place] [address] Shashank Shetty LPN Edema, unspecified type (Primary Dx); Encounter for change or removal of nonsurgical wound dressing 12/15/2019 8:40 AM EST Office Visit [facility] [address] [place] [address] [address] [place] [address] St Onge, Shira, BOOKY Ulcer of right lower extremity, unspecified ulcer stage (Primary Dx); Ulcer of left lower extremity, unspecified ulcer stage; Lymphedema of both lower extremities 12/06/2019 9:00 AM EST Office Visit [facility] [address] [address] St Onge, Shira, BOOKY Ulcer of right lower extremity, unspecified ulcer stage (Primary Dx); Ulcer of left lower extremity, unspecified ulcer stage; Lymphedema of both lower extremities 11/29/2019 8:40 AM EST Office Visit [facility] [address] [facility] [address] [place] [address] [address] Onge, Shira, BOOKY Ulcer of right lower extremity, unspecified ulcer stage (Primary Dx); Ulcer of left lower extremity, unspecified ulcer stage; Lymphedema of both lower extremities 11/22/2019 8:40 AM EST Office Visit [facility] [address] [facility] [address] [place] [address] St Onge, Shira, BOOKY Ulcer of right lower extremity, unspecified ulcer stage (Primary Dx); Ulcer of left lower extremity, unspecified ulcer stage; Lymphedema of both lower extremities 11/15/2019 8:40 AM EST Office Visit [facility] [address] [facility] [address] [place] [address] [address] Onge, Shira, BOOKY Ulcer of right lower extremity, unspecified ulcer stage (Primary Dx); Ulcer of left lower extremity, unspecified ulcer stage; Lymphedema of both lower extremities 11/08/2019 8:40 AM EST Office Visit [facility] [address] [facility] [address] [place] [address] [address] Onge, Shira, BOOKY Ulcer of right lower extremity, unspecified ulcer stage (Primary Dx); Ulcer of left lower extremity, unspecified ulcer stage 11/01/2019 8:00 AM EST Office Visit [facility] [address] [address] [address] Onge, Shira, BOOKY Ulcer of right lower extremity, unspecified ulcer stage (Primary Dx) 10/27/2019 8:40 AM EST Office Visit [facility] [address] [facility] [address] [place] [address] St Onge, Shira, BOOKY Ulcer of right lower extremity, unspecified ulcer stage (Primary Dx); Lymphedema of both lower extremities 10/20/2019 2:00 PM EST Nurse Visit [facility] [address] [address] Orville Gandhi LPN Edema, unspecified type (Primary Dx); Encounter for change or removal of nonsurgical wound dressing 10/12/2019 10:00 AM EST Office Visit [facility] [address] [facility] [address] [place] [address] Joshua Hendrix MD Venous stasis of lower extremity (Primary Dx) 10/06/2019 11:00 AM EST Office Visit [facility] [address] [facility] [address] [place] [address] St Onge, Shira, BOOKY Ulcer of right lower extremity, unspecified ulcer stage (Primary Dx) 10/04/2019 Telephone [facility] [address] [facility] [address] [place] [address] Joshua Hendrix MD Post Op (wound care) 09/29/2019 Surgery/Major Procedure [facility] [address] [place] [address] Joshua Hendrix MD 09/19/2019 2:20 PM EST Office Visit [facility] [address] [place] [address] [address] [place] [address] [address] Onge, Shira, BOOKY Ulcer of right lower extremity, unspecified ulcer stage (Primary Dx); Lymphedema of both lower extremities 09/07/2019 Pre-Op FAM PRAC UNSPECIFIED Provider, Unknown 09/05/2019 10:00 AM EST Consult (Initial) [facility] [address] [address] Joshua Hendrix MD Venous stasis of lower extremity (Primary Dx) 08/30/2019 9:20 AM EST Office Visit [facility] [address] [facility] [address] [place] [address] [address] Onge, Shira, BOOKY Ulcer of right lower extremity, unspecified ulcer stage (Primary Dx); Lymphedema of both lower extremities 08/23/2019 9:20 AM EST Office Visit [facility] [address] [address] St Onge, Shira, BOOKY Ulcer of right lower extremity, unspecified ulcer stage (Primary Dx); Lymphedema of both lower extremities 08/16/2019 9:20 AM EDT Office Visit [facility] [address] [facility] [address] [place] [address] St Onge, Shira, BOOKY Ulcer of right lower extremity, unspecified ulcer stage (Primary Dx); Lymphedema of both lower extremities 08/09/2019 8:40 AM EDT Office Visit [facility] [address] [facility] [address] [place] [address] St Onge, Shira, BOOKY Ulcer of right lower extremity, unspecified ulcer stage (Primary Dx); Lymphedema of both lower extremities 08/02/2019 9:20 AM EDT Office Visit [facility] [address] [facility] [address] [place] [address] St Onge, Shira, BOOKY Ulcer of right lower extremity, unspecified ulcer stage (Primary Dx); Lymphedema of both lower extremities 07/25/2019 9:00 AM EDT Office Visit [facility] [address] [facility] [address] [place] [address] Nav Staples MD Varicose veins of left lower extremity with pain (Primary Dx); Venous stasis ulcer of calf with bone involvement without evidence of necrosis with varicose veins, unspecified laterality; Varicose veins of right lower extremity with ulcer of calf with fat layer exposed 07/20/2019 9:00 AM EDT Nurse Visit [facility] [address] [facility] [address] [place] [address] Orville Gandhi LPN Edema, unspecified type (Primary Dx); Encounter for change or removal of nonsurgical wound dressing 07/14/2019 9:20 AM EDT Nurse Visit [facility] [address] [facility] [address] [place] [address] Shashank Shetty LPN Edema, unspecified type (Primary Dx); Encounter for change or removal of nonsurgical wound dressing 07/07/2019 9:40 AM EDT Office Visit [facility] [address] [facility] [address] [place] [address] [address] Onge, Shira, BOOKY Ulcer of right lower extremity, unspecified ulcer stage (Primary Dx); Lymphedema of both lower extremities 07/04/2019 9:00 AM EDT Office Visit [facility] [address] [facility] [address] [place] [address] Shira Meyers NP Ulcer of right lower extremity, unspecified ulcer stage (Primary Dx); Lymphedema of both lower extremities 06/27/2019 Telephone [facility] [address] [facility] [address] [place] [address] Shira Meyers NP Discussion With Provider; Wound Care 04/17/2019 9:20 AM EDT Nurse Visit [facility] [address] [facility] [address] [place] [address] Lymphedema (Primary Dx) 04/10/2019 9:20 AM EDT Office Visit [facility] [address] [facility] [address] [place] [address] Nolvia Elkins NP Lymphedema of both lower extremities (Primary Dx); Ulcer of right lower extremity, unspecified ulcer stage 04/05/2019 8:30 AM EDT Office Visit [facility] [address] [facility] [address] [place] [address] Theo Martinez MD Lymphedema of both lower extremities (Primary Dx); Venous ulcer 03/29/2019 9:15 AM EDT Office Visit [facility] [address] [place] [phone] Nav Amato MD Trigger finger, right ring finger (Primary Dx) 03/21/2019 10:45 AM EDT Office Visit [facility] [address] [place] [phone] Renae Turner PA S/P trigger finger release (Primary Dx); Tenosynovitis of finger 11/18/2018 8:00 AM EST Office Visit [facility] [address] [place] [phone] Jeffery Manuel NP Trigger ring finger of left hand (Primary Dx) 11/08/2018 8:00 AM EST Minor Procedure/Test [facility] [address] [place] [phone] Nav Amato MD Trigger ring finger of left hand (Primary Dx) 10/10/2018 9:15 AM EST Office Visit [facility] [address] [place] [phone] Renae Turner PA S/P trigger finger release (Primary Dx); Visit for suture removal; Trigger finger, left ring finger 09/27/2018 9:00 AM EST Minor Procedure/Test [facility] [address] [place] [phone] Nav Amato MD Trigger finger, right ring finger (Primary Dx) 09/19/2018 3:45 PM EST Consult (Initial) [facility] [address] [place] [phone] Ivna Rueda MD Lumbar facet arthropathy (Primary Dx); Spinal stenosis of lumbar region with neurogenic claudication 08/29/2018 4:00 PM EST Consult (Initial) [facility] [address] [place] [phone] Renae Turner PA Trigger finger, right ring finger (Primary Dx) 08/15/2018 11:00 AM EDT Consult (Initial) [facility] [address] [place] [phone] Savage Jara MD Spinal stenosis of lumbar region with neurogenic claudication (Primary Dx); Facet arthritis of lumbar region (HCC); Foraminal stenosis of lumbar region; Low back pain of over 3 months duration; Lumbosacral stenosis with neurogenic claudication (HCC); BMI 50.0-59.9, adult 06/01/2018 9:40 AM EDT Office Visit [facility] [address] [facility] [address] [place] [address] [address] Onge, Shira, BOOKY Lymphedema of both lower extremities (Primary Dx); Ulcers of both lower legs, limited to breakdown of skin 05/25/2018 9:40 AM EDT Office Visit [facility] [address] [facility] [address] [place] [address] [address] Onge, Shira, BOOKY Ulcer of left lower extremity, unspecified ulcer stage (Primary Dx); Lymphedema of both lower extremities 05/18/2018 9:00 AM EDT Nurse Visit [facility] [address] [place] [address] Shetty, Shashank, INVOICING MACHINE OPERATOR Edema, unspecified type (Primary Dx); Encounter for change or removal of nonsurgical wound dressing 05/11/2018 9:00 AM EDT Office Visit [facility] [address] [place] [address] [address] [place] [address] [address] Onge, Shira, BOOKY Lymphedema of both lower extremities (Primary Dx); Ulcers of both lower legs, limited to breakdown of skin 05/04/2018 9:00 AM EDT Nurse Visit [facility] [address] [place] [address] Gandhi, Orville, INVOICING MACHINE OPERATOR Edema, unspecified type (Primary Dx); Encounter for change or removal of nonsurgical wound dressing 04/27/2018 9:40 AM EDT Nurse Visit [facility] [address] [place] [address] Shetty, Shashank, INVOICING MACHINE OPERATOR Edema, unspecified type (Primary Dx); Encounter for change or removal of nonsurgical wound dressing 04/13/2018 9:00 AM EDT Office Visit [facility] [address] [place] [address] [address] Onge, Shira, BOOKY Ulcers of both lower legs, limited to breakdown of skin (Primary Dx); Lymphedema of both lower extremities 04/13/2018 11:40 AM EDT Minor Procedure/Test [facility] [address] [place] [address] Roger Johnson DPM Atherosclerosis of tribe artery of both lower extremities, with unspecified presence of clinical manifestation (Primary Dx); Onychomycosis; Pain of toes of both feet 04/06/2018 9:40 AM EDT Office Visit [facility] [address] [address] Shira Meyers, AZRA Lymphedema of both lower extremities (Primary Dx); Ulcers of both lower legs, limited to breakdown of skin 03/30/2018 9:00 AM EDT Nurse Visit [facility] [address] [place] [address] Shetty, Shashank, INVOICING MACHINE OPERATOR Edema, unspecified type (Primary Dx); Encounter for change or removal of nonsurgical wound dressing 03/23/2018 9:00 AM EDT Nurse Visit [facility] [address] [place] [address] Shetty, Shashank, INVOICING MACHINE OPERATOR Edema, unspecified type (Primary Dx); Encounter for change or removal of nonsurgical wound dressing 03/16/2018 9:00 AM EDT Nurse Visit [facility] [address] [place] [address] Shetty, Shashank, INVOICING MACHINE OPERATOR Edema, unspecified type (Primary Dx); Encounter for change or removal of nonsurgical wound dressing 03/02/2018 9:00 AM EDT Nurse Visit [facility] [address] [place] [address] Gandhi, Orville, INVOICING MACHINE OPERATOR Edema, unspecified type (Primary Dx); Encounter for change or removal of nonsurgical wound dressing 02/23/2018 9:20 AM EDT Nurse Visit [facility] [address] [place] [address] St Onge, Shira, BOOKY Ulcers of both lower legs, limited to breakdown of skin (Primary Dx); Lymphedema 02/18/2018 10:20 AM EDT Office Visit [facility] [address] [place] [address] [address] [place] [address] [address] Onge, Shira, BOOKY Ulcers of both lower legs, limited to breakdown of skin (Primary Dx); Lymphedema 01/19/2018 9:30 AM EDT Nurse Visit [facility] [address] [place] [address] Gandhi, Orville, INVOICING MACHINE OPERATOR Edema, unspecified type (Primary Dx); Encounter for change or removal of nonsurgical wound dressing 01/12/2018 9:00 AM EDT Office Visit [facility] [address] [place] [address] St Onge, Shira, BOOKY Ulcers of both lower legs, limited to breakdown of skin (Primary Dx); Lymphedema of both lower extremities 01/05/2018 9:00 AM EDT Office Visit [facility] [address] [place] [address] St Onge, Shira, BOOKY Ulcers of both lower legs, limited to breakdown of skin (Primary Dx); Lymphedema 12/31/2017 11:20 AM EDT Nurse Visit [facility] [address] [place] [address] Edema, unspecified type (Primary Dx); Encounter for change or removal of nonsurgical wound dressing 12/22/2017 9:00 AM EST Office Visit [facility] [address] [place] [address] St Onge, Shira, BOOKY Ulcers of both lower legs, limited to breakdown of skin (Primary Dx); Lymphedema 2017 8:20 AM EST Office Visit [facility] [address] [place] [address] St Onge, Shira, BOOKY Ulcers of both lower legs, limited to breakdown of skin (Primary Dx); Lymphedema 12/08/2017 9:00 AM EST Office Visit [facility] [address] [facility] [address] [place] [address] [address] Onge, Shira, BOOKY Ulcers of both lower legs, limited to breakdown of skin (Primary Dx); Lymphedema 12/01/2017 9:00 AM EST Nurse Visit [facility] [address] [facility] [address] [place] [address] Larosee, Jolene, INVOICING MACHINE OPERATOR Edema, unspecified type (Primary Dx); Encounter for change or removal of nonsurgical wound dressing 11/24/2017 9:00 AM EST Nurse Visit [facility] [address] [place] [address] Charly Gandhia, INVOICING MACHINE OPERATOR Edema, unspecified type (Primary Dx); Encounter for change or removal of nonsurgical wound dressing 11/17/2017 9:00 AM EST Nurse Visit [facility] [address] [address] Gandhi, Orville, INVOICING MACHINE OPERATOR Edema, unspecified type (Primary Dx); Encounter for change or removal of nonsurgical wound dressing 11/10/2017 9:00 AM EST Nurse Visit [facility] [address] [address] Gandhi Orville, INVOICING MACHINE OPERATOR Edema, unspecified type (Primary Dx); Encounter for change or removal of nonsurgical wound dressing 11/02/2017 9:00 AM EST Nurse Visit [facility] [address] [address] Dov Gandhiyla, INVOICING MACHINE OPERATOR Edema, unspecified type (Primary Dx); Encounter for change or removal of nonsurgical wound dressing 10/27/2017 10:40 AM EST Office Visit [facility] [address] [address] St Onge, Shira, BOOKY Ulcers of both lower legs, limited to breakdown of skin (Primary Dx); Lymphedema 10/22/2017 1:00 PM EST Nurse Visit [facility] [address] [facility] [address] [place] [address] Orville Gandhi, INVOICING MACHINE OPERATOR Edema, unspecified type (Primary Dx); Encounter for change or removal of nonsurgical wound dressing 10/19/2017 9:00 AM EST Nurse Visit [facility] [address] [facility] [address] [place] [address] VerneJolene, INVOICING MACHINE OPERATOR Edema, unspecified type (Primary Dx); Encounter for change or removal of nonsurgical wound dressing 10/15/2017 9:00 AM EST Nurse Visit [facility] [address] [facility] [address] [place] [address] Orville Gandhi, INVOICING MACHINE OPERATOR Edema, unspecified type (Primary Dx); Encounter for change or removal of nonsurgical wound dressing 10/12/2017 9:00 AM EST Nurse Visit [facility] [address] [address] Orville Gandhi, INVOICING MACHINE OPERATOR Edema, unspecified type (Primary Dx); Encounter for change or removal of nonsurgical wound dressing 10/07/2017 9:00 AM EST Office Visit [facility] General Surgery [address] [facility] 210 [place] [address] St Shira Snow, AZRA Ulcers of both lower legs, limited to breakdown of skin (Primary Dx); Lymphedema 10/05/2017 Telephone [facility] General Vascular Surgery [address] [address] [address] Shira Snow NP Appointment 09/17/2017 8:40 AM EST Office Visit [facility] General Surgery [address] [facility] 210 [place] [address] [address] Shira Snow BOOKY Ulcer of left lower extremity, unspecified ulcer stage (Primary Dx); Ulcer of right lower extremity, unspecified ulcer stage; Lymphedema 09/08/2017 9:40 AM EST Nurse Visit [facility] Vascular Surgery [address] [facility] 210 [place] [address] Orville Gandhi LPN Edema, unspecified type (Primary Dx); Encounter for change or removal of nonsurgical wound dressing 09/03/2017 1:20 PM EST Office Visit [facility] General Surgery [address] [facility] [address] [place] [address] Shira Meyers NP Ulcers of both lower legs, limited to breakdown of skin (Primary Dx); Lymphedema 06/28/2017 9:00 AM EDT Office Visit [facility] General Surgery [address] [facility] [address] [place] [address] Shira Meyers NP Ulcer of lower extremity, left, with unspecified severity (Primary Dx); Ulcer of lower extremity, right, with unspecified severity; Lymphedema 06/15/2017 Telephone [facility] Vascular Surgery [address] [facility] [address] [place] [address] Shira Meyers NP Wound Care; Equipment/supplies 06/14/2017 9:00 AM EDT Nurse Visit [facility] Vascular Surgery [address] [facility] [address] [place] [address] Jolene Castellano LPN Edema, unspecified type (Primary Dx); Encounter for change or removal of nonsurgical wound dressing 06/11/2017 9:00 AM EDT Nurse Visit [facility] Vascular Surgery [address] [facility] [address] [place] [address] Edema, unspecified type (Primary Dx); Encounter for change or removal of nonsurgical wound dressing 06/09/2017 10:00 AM EDT Nurse Visit [facility] Vascular Surgery [address] [facility] [address] [place] [address] Edema, unspecified type (Primary Dx); Encounter for change or removal of nonsurgical wound dressing 06/07/2017 9:00 AM EDT Nurse Visit [facility] Vascular Surgery [address] [facility] [address] [place] [address] Larosee, Jolene, INVOICING MACHINE OPERATOR Edema, unspecified type (Primary Dx); Encounter for change or removal of nonsurgical wound dressing 06/02/2017 8:40 AM EDT Office Visit [facility] General Surgery [address] [place] [address] St Onge, Shira, BOOKY Ulcers of both lower legs, limited to breakdown of skin (Primary Dx); Lymphedema; Chronic venous insufficiency 05/12/2017 9:20 AM EDT Office Visit [facility] General Surgery [address] [place] [address] [address] Onge, Shira, BOOKY Ulcer of lower extremity, left, with unspecified severity (Primary Dx); Ulcer of lower extremity, right, with unspecified severity; Venous stasis of lower extremity; Lymphedema 05/05/2017 9:20 AM EDT Office Visit [facility] General Surgery [address] [place] [address] [address] Onge, Shira, BOOKY Ulcers of both lower legs, limited to breakdown of skin (Primary Dx); Lymphedema 04/28/2017 9:20 AM EDT Office Visit [facility] General Surgery [address] [place] [address] [address] Onge, Shira, BOOKY Lymphedema (Primary Dx); Ulcers of both lower legs, limited to breakdown of skin 04/22/2017 8:40 AM EDT Office Visit [facility] General Surgery [address] [place] [address] [address] Onge, Shira, BOOKY Lymphedema (Primary Dx); Ulcer of lower extremity, left, with unspecified severity; Ulcer of lower extremity, right, with unspecified severity 04/14/2017 9:20 AM EDT Office Visit [facility] General Surgery [address] [place] [address] [address] Onge, Shira, BOOKY Lymphedema (Primary Dx); Ulcers of both lower legs, limited to breakdown of skin; Venous stasis of lower extremity 04/07/2017 9:20 AM EDT Office Visit [facility] General Surgery [address] [facility] [address] [place] [address] [address] Onge, Shira, BOOKY Lymphedema (Primary Dx); Ulcer of lower extremity, left, with unspecified severity; Ulcer of lower extremity, right, with unspecified severity 03/31/2017 8:00 AM EDT Office Visit [facility] General Surgery [address] [facility] [address] [place] [address] [address] Onge, Shira, BOOKY Lymphedema (Primary Dx); Ulcers of both lower legs, limited to breakdown of skin; Morbid obesity due to excess calories 03/30/2017 Telephone [facility] General Surgery [address] [facility] [address] [place] [address] [address] Onge, Shira, BOOKY Unna Boot Application 03/19/2017 Telephone [facility] General Surgery [address] [facility] [address] [place] [address] St Onge, Shira, BOOKY No Show 02/23/2017 Telephone [facility] General Surgery [address] [facility] [address] [place] [address] [facility] Onge, Shira, BOOKY Unna Boot Application 02/20/2017 Office Visit NON FC SA NON FC UNK [facility], Unknown Provider 02/18/2017 Consult (Initial) NON FC [facility] [address] [place] [address] Juanjose Watson MD 02/17/2017 [facility] NON FC [facility] [address] [place] [address] Tamika Lomax MD 02/17/2017 8:00 AM EDT Office Visit [facility] General Surgery [address] [facility] [address] [place] [address] [address] Onge, Shira, BOOKY Cellulitis of right lower extremity (Primary Dx) 02/16/2017 Telephone [facility] General Vascular Surgery [address] [facility] 210 [place] [address] [address] Onge, Shira, BOOKY Appointment (tomorrow); Unna Boot Application 02/08/2017 10:20 AM EDT Office Visit [facility] General Surgery [address] [place] [address] St Onge, Shira, BOOKY Lymphedema (Primary Dx); Ulcer of lower extremity, left, with unspecified severity 02/01/2017 8:20 AM EDT Office Visit [facility] General Surgery [address] [place] [address] [address] Onge, Shira, BOOKY Lymphedema (Primary Dx); Ulcer of lower extremity, left, with unspecified severity; Venous stasis of lower extremity 01/28/2017 8:20 AM EDT Office Visit [facility] General Surgery [address] [place] [address] [address] Onge, Shira, BOOKY Lymphedema (Primary Dx); Ulcer of lower extremity, left, with unspecified severity 01/25/2017 1:20 PM EDT Office Visit [facility] General Surgery [address] [place] [address] [address] Onge, Shira, BOOKY Lymphedema (Primary Dx); Ulcer of lower extremity, left, with unspecified severity; Ulcer of lower extremity, right, with unspecified severity 01/21/2017 2:30 PM EDT Nurse Visit [facility] Vascular Surgery [address] [place] [address] Stinehart, Anabel, INVOICING MACHINE OPERATOR Ulcers of both lower legs (Primary Dx); Edema, unspecified type; Encounter for change or removal of nonsurgical wound dressing 01/18/2017 8:20 AM EDT Office Visit [facility] General Surgery [address] [place] [address] [address] Onge, Shira, BOOKY Lymphedema (Primary Dx); Ulcer of lower extremity, left, with unspecified severity; Ulcer of lower extremity, right, with unspecified severity 01/14/2017 8:20 AM EDT Office Visit [facility] General Surgery [address] [place], [place] [address], [place] [address] [address] Onge, Shira, BOOKY Lymphedema (Primary Dx); Ulcer of lower extremity, left, with unspecified severity; Ulcer of lower extremity, right, with unspecified severity; Venous stasis of lower extremity 01/11/2017 11:00 AM EDT Nurse Visit [facility] Vascular Surgery [address] [place] [address] [address] [place] [address] Stinehart, Anabel, INVOICING MACHINE OPERATOR Edema, unspecified type (Primary Dx); Encounter for change or removal of nonsurgical wound dressing 01/06/2017 9:00 AM EDT Office Visit [facility] General Surgery [address] [place] [address] [address] Onge, Shira, BOOKY Lymphedema (Primary Dx); Ulcer of lower extremity, left, with unspecified severity; Ulcer of lower extremity, right, with unspecified severity 12/30/2016 9:00 AM EDT Office Visit [facility] General Surgery [address] [place] [address] [address] Onge, Shira, BOOKY Lymphedema (Primary Dx); Ulcer of lower extremity, left, with unspecified severity; Ulcer of lower extremity, right, with unspecified severity 12/23/2016 9:00 AM EST Office Visit [facility] General Surgery [address] [place] [address] [address] Onge, Shira, BOOKY Lymphedema (Primary Dx); Ulcer of lower extremity, left, with unspecified severity; Ulcer of lower extremity, right, with unspecified severity 12/16/2016 1:20 PM EST Office Visit [facility] General Surgery [address] [place] [address] [address] Onge, Shira, BOOKY Ulcer of lower extremity, right, with unspecified severity (Primary Dx); Lymphedema; Ulcer of lower extremity, left, with unspecified severity 12/09/2016 9:00 AM EST Office Visit [facility] General Surgery [address] [place] [address] [address] Onge, Shira, BOOKY Ulcer of lower extremity, right, with unspecified severity (Primary Dx); Lymphedema; Ulcer of lower extremity, left, with unspecified severity 12/02/2016 10:00 AM EST Office Visit [facility] General Surgery [address] [place] [address] [address] Onge, Shira, BOOKY Ulcer of lower extremity, right, with unspecified severity (Primary Dx); Lymphedema; Ulcer of lower extremity, left, with unspecified severity 11/25/2016 11:00 AM EST Office Visit [facility] General Surgery [address] [place] [address] [address] Onge, Shira, BOOKY Lymphedema (Primary Dx); Ulcer of lower extremity, left, with unspecified severity [L97.929]; Ulcer of lower extremity, right, with unspecified severity [L97.919] 11/25/2016 8:00 AM EST Minor Procedure/Test [facility] [address] [place] [address] Roger Johnson, LANCE Onychomycosis (Primary Dx); Pain in toes of both feet [M79.674, M79.675] 11/19/2016 8:20 AM EST Office Visit [facility] General Surgery [address] [place] [address] [address] Onge, Shira, BOOKY Lymphedema (Primary Dx); Ulcer of lower extremity, left, with unspecified severity [L97.929]; Ulcer of lower extremity, right, with unspecified severity [L97.919]; Venous stasis of lower extremity 11/11/2016 9:00 AM EST Office Visit [facility] General Surgery [address] [place] [address] [address] Onge, Shira, BOOKY Lymphedema (Primary Dx); Ulcer of lower extremity, left, with unspecified severity [L97.929]; Ulcer of lower extremity, right, with unspecified severity [L97.919] 11/04/2016 9:00 AM EST Office Visit [facility] General Surgery [address] [facility] [address] [place] [address] [address] Onge, Shira, BOOKY Lymphedema (Primary Dx); Ulcer of lower extremity, left, with unspecified severity [L97.929]; Ulcer of lower extremity, right, with unspecified severity [L97.919] 10/28/2016 9:20 AM EST Office Visit [facility] General Surgery [address] [facility] [address] [place] [address] [address] Onge, Shira, BOOKY Lymphedema (Primary Dx); Ulcer of lower extremity, left, with unspecified severity [L97.929]; Ulcer of lower extremity, right, with unspecified severity [L97.919]; Chronic venous insufficiency 10/21/2016 10:40 AM EST Office Visit [facility] General Surgery [address] [place] [address] [address] [place] [address] [address] Onge, Shira, BOOKY Ulcer of lower extremity, left, with unspecified severity [L97.929] (Primary Dx); Ulcer of lower extremity, right, with unspecified severity [L97.919]; Venous stasis of lower extremity 10/14/2016 8:20 AM EST Office Visit [facility] General Vascular Surgery [address] [place] [address] [address] [place] [address] [address] Onge, Shira, BOOKY Lymphedema (Primary Dx); Ulcer of lower extremity, left, with unspecified severity [L97.929]; Ulcer of lower extremity, right, with unspecified severity [L97.919] 10/07/2016 9:00 AM EST Office Visit [facility] General Vascular Surgery [address] [place] [address] St Onge, Shira, BOOKY Ulcer of lower extremity, left, with unspecified severity [L97.929] (Primary Dx); Ulcer of lower extremity, right, with unspecified severity [L97.919]; Venous stasis of lower extremity 09/30/2016 9:15 AM EST Nurse Visit [facility] General Vascular Surgery [address] [facility] [address] [place] [address] Stinehart, Anabel, INVOICING MACHINE OPERATOR Ulcers of both lower legs (Primary Dx); Edema, unspecified type [R60.9]; Encounter for change or removal of nonsurgical wound dressing 09/06/2016 [facility] [address] [place] [address] Jennifer Gibbons MD 09/02/2016 8:40 AM EST Office Visit [facility] General Vascular Surgery [address] [facility] 210 [place] [address] [address] Onge, Shira, BOOKY Lymphedema (Primary Dx); Leg ulcer, left, with unspecified severity; Ulcer of lower extremity, right, with unspecified severity [L97.919] 08/27/2016 8:20 AM EST Office Visit [facility] General Vascular Surgery [address] [facility] [address] [place] [address] [address] Onge, Shira, BOOKY Lymphedema (Primary Dx); Ulcer of lower extremity, left, with unspecified severity [L97.929]; Ulcer of lower extremity, right, with unspecified severity [L97.919] 08/19/2016 Telephone [facility] General Vascular Surgery [address] [facility] 210 [place] [address] [address] Onge, Shira, BOOKY 08/19/2016 8:40 AM EDT Office Visit [facility] General Vascular Surgery [address] [facility] [address] [place] [address] [address] Onge, Shira, BOOKY Lymphedema (Primary Dx); Ulcer of lower extremity, left, with unspecified severity [L97.929]; Ulcer of lower extremity, right, with unspecified severity [L97.919] 08/05/2016 9:15 AM EDT Nurse Visit [facility] General Vascular Surgery [address] [facility] 210 [place] [address] Stinehart, Anabel, INVOICING MACHINE OPERATOR Bilateral leg ulcer, with unspecified severity (Primary Dx); Edema, unspecified type [R60.9]; Encounter for change or removal of nonsurgical wound dressing 07/29/2016 8:40 AM EDT Office Visit [facility] General Vascular Surgery [address] [facility] 210 [place] [address] St Ally SnowAZRA neely Ulcer of lower extremity, left, with unspecified severity [L97.929] (Primary Dx); Ulcer of lower extremity, right, with unspecified severity [L97.919]; Lymphedema 07/15/2016 9:00 AM EDT Nurse Visit [facility] General Vascular Surgery [address] [facility] [address] [place] [address] Stinehart, Anabel, INVOICING MACHINE OPERATOR Edema, unspecified type [R60.9] (Primary Dx); Encounter for change or removal of nonsurgical wound dressing; Bilateral leg ulcer, with unspecified severity 07/08/2016 9:00 AM EDT Nurse Visit [facility] General Vascular Surgery [address] [place] [address] [address] [place] [address] Stinehart, Anabel, INVOICING MACHINE OPERATOR Edema, unspecified type [R60.9] (Primary Dx); Encounter for change or removal of nonsurgical wound dressing 07/01/2016 9:00 AM EDT Nurse Visit [facility] General Vascular Surgery [address] [place] [address] [address] [place] [address] Stinehart, Anabel, INVOICING MACHINE OPERATOR Edema, unspecified type [R60.9] (Primary Dx); Encounter for change or removal of nonsurgical wound dressing; Bilateral leg ulcer, with unspecified severity 06/24/2016 9:00 AM EDT Nurse Visit [facility] General Vascular Surgery [address] [facility] 210 [place] [address] [place], PICKER MACHINE OPERATOR Edema, unspecified type [R60.9] (Primary Dx); Encounter for change or removal of nonsurgical wound dressing; Ulcer of calf, unspecified laterality, with unspecified severity (HCC) [L97.209] 06/17/2016 9:20 AM EDT Office Visit [facility] General Vascular Surgery [address] [facility] [address] [place] [address] [address] OngeShira BOOKY Ulcer of lower extremity, left, with unspecified severity (HCC) [L97.929] (Primary Dx); Ulcer of lower extremity, right, with unspecified severity (HCC) [L97.919]; Chronic venous insufficiency 06/10/2016 9:00 AM EDT Nurse Visit [facility] General Vascular Surgery [address] [facility] [address] [place] [address] Stinehart, Anabel, INVOICING MACHINE OPERATOR Ulcers of both lower extremities (Primary Dx); Edema, unspecified type [R60.9]; Encounter for change or removal of nonsurgical wound dressing 06/03/2016 9:00 AM EDT Nurse Visit [facility] General Vascular Surgery [address] [facility] [address] [place] [address] Stinehart, Anabel, INVOICING MACHINE OPERATOR Edema, unspecified type [R60.9] (Primary Dx); Encounter for change or removal of nonsurgical wound dressing; Ulcer of lower extremity, unspecified laterality, with unspecified severity 05/27/2016 9:00 AM EDT Nurse Visit [facility] General Vascular Surgery [address] [place] [address] [address] [place] [address] Stinehart, Anabel, INVOICING MACHINE OPERATOR Edema, unspecified type [R60.9] (Primary Dx); Encounter for change or removal of nonsurgical wound dressing; Ulcers of both lower extremities 05/20/2016 10:20 AM EDT Office Visit [facility] General Vascular Surgery [address] [facility] [address] [place] [address] St Shira Snow, BOOKY Ulcer of lower extremity, left, with unspecified severity (HCC) [L97.929] (Primary Dx); Ulcer of lower extremity, right, with unspecified severity (HCC) [L97.919]; Edema, unspecified type [R60.9]; Venous stasis of lower extremity 05/06/2016 8:40 AM EDT Nurse Visit [facility] General Vascular Surgery [address] [address] [address] Onge, Shira, BOOKY Ulcer of lower extremity, left, with unspecified severity (HCC) [L97.929] (Primary Dx); Ulcer of lower extremity, right, with unspecified severity (HCC) [L97.919]; Venous stasis of lower extremity 04/29/2016 8:30 AM EDT Nurse Visit [facility] General Vascular Surgery [address] [place] [address] Stinehart, Anabel, INVOICING MACHINE OPERATOR Ulcers of both lower extremities (Primary Dx); Edema, unspecified type [R60.9]; Encounter for change or removal of nonsurgical wound dressing 04/22/2016 9:00 AM EDT Nurse Visit [facility] General Vascular Surgery [address] [place] [address] Stinehart, Anabel, INVOICING MACHINE OPERATOR Edema, unspecified type [R60.9] (Primary Dx); Encounter for change or removal of nonsurgical wound dressing 04/15/2016 9:00 AM EDT Office Visit [facility] General Vascular Surgery [address] [place] [address] [address] Onge, Shira, BOOKY Ulcer of lower extremity, left, with unspecified severity (HCC) [L97.929] (Primary Dx); Venous stasis of lower extremity 04/09/2016 2:30 PM EDT Nurse Visit [facility] General Vascular Surgery [address] [place] [address] Stinehart, Anabel, INVOICING MACHINE OPERATOR Edema, unspecified type [R60.9] (Primary Dx); Encounter for change or removal of nonsurgical wound dressing 04/02/2016 9:15 AM EDT Nurse Visit [facility] General Vascular Surgery [address] [place] [address] Stinehart, Anabel, INVOICING MACHINE OPERATOR Bilateral leg ulcer, with unspecified severity (Primary Dx); Edema, unspecified type [R60.9]; Encounter for change or removal of nonsurgical wound dressing 03/18/2016 8:30 AM EDT Nurse Visit [facility] General Vascular Surgery [address] [facility] 210 [place] [address] Anabel Springer LPN Edema, unspecified type [R60.9] (Primary Dx); Encounter for change or removal of nonsurgical wound dressing 03/12/2016 Telephone [facility] General Vascular Surgery [address] [place] [address] [address] [place] [address] Tamika Lomax MD Results 03/12/2016 2:00 PM EDT Office Visit [facility] General Vascular Surgery [address] [place] [address] [address] [place] [address] Tamika Lomax MD Bilateral leg ulcer, limited to breakdown of skin (Primary Dx); Presence of IVC filter 03/11/2016 8:20 AM EDT Office Visit [facility] General Vascular Surgery [address] [place] [address] [address] [place] [address] [address] Onge, Shira, BOOKY Lymphedema (Primary Dx); Ulcer of lower extremity, left, with unspecified severity (HCC) [L97.929]; Ulcer of lower extremity, right, with unspecified severity (HCC) [L97.919] 03/05/2016 8:20 AM EDT Office Visit [facility] General Vascular Surgery [address] [place] [address] [address] [place] [address] [address] Onge, Shira, BOOKY Lymphedema (Primary Dx); Ulcer of lower extremity, left, with unspecified severity (HCC) [L97.929]; Ulcer of lower extremity, right, with unspecified severity (HCC) [L97.919] 02/26/2016 3:00 PM EDT Office Visit [facility] General Vascular Surgery [address] [place] [address] St Onge, Shira, BOOKY Ulcer of lower extremity, left, with unspecified severity (HCC) [L97.929] (Primary Dx); Ulcer of lower extremity, right, with unspecified severity (HCC) [L97.919]; Lymphedema 02/13/2016 2:15 PM EDT Office Visit [facility] General Vascular Surgery [address] [place] [address] Tamika Lomax MD Venous stasis dermatitis of both lower extremities (Primary Dx) 02/06/2016 Telephone [facility] [address] [place] [address] Roger Johnson DPM FYAric 01/15/2016 8:20 AM EDT Office Visit [facility] General Vascular Surgery [address] [place] [address] St OnShira meyer, BOOKY Lymphedema (Primary Dx); Ulcer of lower extremity, left, with unspecified severity (HCC) [L97.929] 01/09/2016 8:20 AM EDT Office Visit [facility] General Vascular Surgery [address] [place] [address] St OnShira meyer, BOOKY Ulcer of lower extremity, left, with unspecified severity (HCC) [L97.929] (Primary Dx); Ulcer of lower extremity, right, with unspecified severity (HCC) [L97.919]; Lymphedema; Chronic venous insufficiency 2015 8:30 AM EST Nurse Visit [facility] General Vascular Surgery [address] [place] [address] Anabel Springer LPN Ulcer of lower extremity, unspecified laterality, with unspecified severity (Primary Dx); Edema, unspecified type [R60.9]; Encounter for change or removal of nonsurgical wound dressing 12/10/2015 8:00 AM EST Office Visit [facility] General Vascular Surgery [address] [place] [address] [address] [address] OnShira meyer, BOOKY Lymphedema (Primary Dx); Ulcer of lower extremity, left, with unspecified severity (HCC) [L97.929]; Venous stasis of lower extremity 11/04/2015 10:00 AM EST Nurse Visit [facility] General Vascular Surgery [address] [facility] [address] [place] [address] Alvina Springera, INVOICING MACHINE OPERATOR Edema, unspecified type [R60.9] (Primary Dx); Encounter for change or removal of nonsurgical wound dressing 11/01/2015 9:15 AM EST Nurse Visit [facility] General Vascular Surgery [address] [facility] [address] [place] [address] Rianat Anabel, INVOICING MACHINE OPERATOR Encounter for change or removal of nonsurgical wound dressing (Primary Dx); Ulcer of lower extremity, unspecified laterality, with unspecified severity 10/31/2015 11:20 AM EST Office Visit [facility] Podiatry [address] [place] [id number] Roger Johnson DPM Atherosclerosis of tribe artery of both lower extremities, with unspecified presence of clinical manifestation (HCC) [I70.203] (Primary Dx); Onychomycosis; Pain of toes of both feet 10/28/2015 9:15 AM EST Nurse Visit [facility] General Vascular Surgery [address] [facility] [address] [place] [address] Alvina Springera, INVOICING MACHINE OPERATOR Ulcer of lower extremity, unspecified laterality, with unspecified severity (Primary Dx); Encounter for change or removal of nonsurgical wound dressing 10/24/2015 9:00 AM EST Office Visit [facility] General Vascular Surgery [address] [facility] [address] [place] [address] St Shira Snow NP Ulcer of lower extremity, right, with unspecified severity (HCC) [L97.919] (Primary Dx); Chronic venous insufficiency; Venous stasis of lower extremity; Morbid obesity, unspecified obesity type (HCC) [E66.01]; Ulcer of lower extremity, left, with unspecified severity (HCC) [L97.929] 10/14/2015 8:30 AM EST Nurse Visit [facility] General Vascular Surgery [address] [facility] [address] [place] [address] Stinehart, Anabel, INVOICING MACHINE OPERATOR Leg ulcer, unspecified laterality, with unspecified severity (Primary Dx); Generalized edema [R60.1]; Encounter for change or removal of nonsurgical wound dressing 10/03/2015 8:45 AM EST Nurse Visit [facility] General Vascular Surgery [address] [facility] [address] [place] [address] Stinehart, Anabel, INVOICING MACHINE OPERATOR Non-pressure ulcer of lower extremity, unspecified laterality, with unspecified severity (Primary Dx); Generalized edema [R60.1]; Encounter for change or removal of nonsurgical wound dressing 09/26/2015 8:20 AM EST Office Visit [facility] General Vascular Surgery [address] [facility] [address] [place] [address] St Shira Snow, BOOKY Ulcer of lower extremity, left, with unspecified severity (HCC) [L97.929] (Primary Dx); Ulcer of lower extremity, right, with unspecified severity (HCC) [L97.919]; Edema, due to unspecified malnutrition type, unspecified edema; Morbid obesity, unspecified obesity type (HCC) [E66.01] 09/19/2015 8:30 AM EST Nurse Visit [facility] General Vascular Surgery [address] [facility] [address] [place] [address] Stinehart, Anabel, INVOICING MACHINE OPERATOR Ulcer of lower extremity, unspecified laterality, with unspecified severity (Primary Dx); Generalized edema [R60.1]; Encounter for change or removal of nonsurgical wound dressing 09/06/2015 9:45 AM EST Nurse Visit [facility] General Vascular Surgery [address] [facility] [address] [place] [address] Stinehart, Anabel, INVOICING MACHINE OPERATOR Ulcers of both lower extremities (Primary Dx); Edema, unspecified edema [R60.9]; Encounter for change or removal of nonsurgical wound dressing 08/29/2015 8:20 AM EST Office Visit [facility] General Vascular Surgery [address] [facility] [address] [place] [address] [address] Onge, Shira, BOOKY Ulcer of lower extremity, left, with unspecified severity (HCC) [L97.929] (Primary Dx); Ulcer of lower extremity, right, with unspecified severity (HCC) [L97.919]; Venous stasis of lower extremity; Morbid obesity, unspecified obesity type (HCC) [E66.01] 08/22/2015 8:30 AM EST Nurse Visit [facility] General Vascular Surgery [address] [facility] [address] [place] [address] Stinehart, Anabel, INVOICING MACHINE OPERATOR Edema, unspecified edema [R60.9] (Primary Dx); Encounter for change or removal of nonsurgical wound dressing 08/15/2015 8:30 AM EDT Nurse Visit [facility] General Vascular Surgery [address] [place] [address] [address] [place] [address] Stinehart, Anabel, INVOICING MACHINE OPERATOR Generalized edema [R60.1] (Primary Dx); Encounter for change or removal of nonsurgical wound dressing 08/08/2015 8:45 AM EDT Nurse Visit [facility] General Vascular Surgery [address] [place] [address] [address] [place] [address] Stinehart, Anabel, INVOICING MACHINE OPERATOR 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); Varicose veins of left lower extremity with inflammation; Edema, unspecified edema [R60.9]; Encounter for change or removal of nonsurgical wound dressing 08/01/2015 8:20 AM EDT Office Visit [facility] General Vascular Surgery [address] [facility] [address] [place] [address] [address] Shira Snow NP Venous stasis dermatitis of both lower extremities [I83.11, I83.12] (Primary Dx); Morbid obesity, unspecified obesity type (HCC) [E66.01]; Ulcer of lower extremity, right, with unspecified severity (HCC) [L97.919]; Venous stasis of lower extremity 07/26/2015 10:30 AM EDT Nurse Visit [facility] General Vascular Surgery [address] [place] [address] [address] [place] [address] Stinehart, Anabel, INVOICING MACHINE OPERATOR Edema, unspecified edema [R60.9] (Primary Dx); Encounter for change or removal of nonsurgical wound dressing 07/08/2015 11:00 AM EDT Nurse Visit [facility] General Vascular Surgery [address] [facility] [address] [place] [address] Stinehart, Anabel, INVOICING MACHINE OPERATOR Ulcers of both lower extremities (Primary Dx); Generalized edema [782.3]; Encounter for change or removal of nonsurgical wound dressing 07/08/2015 Telephone [facility] Urology [address] [facility] [address] [place] [address] Shira Meyers NP Unna Boot Application 06/28/2015 2:45 PM EDT Nurse Visit [facility] General Vascular Surgery [address] [facility] [address] [place] [address] Stinehart, Anabel, INVOICING MACHINE OPERATOR Ulcers of both lower extremities (Primary Dx); Encounter for change or removal of nonsurgical wound dressing 06/21/2015 10:00 AM EDT Nurse Visit [facility] General Vascular Surgery [address] [facility] [address] [place] [address] Stinehart, Anabel, INVOICING MACHINE OPERATOR Ulcer of lower extremity, unspecified laterality, with unspecified severity (Primary Dx); Edema; Encounter for change or removal of nonsurgical wound dressing 06/11/2015 9:45 AM EDT Nurse Visit [facility] General Vascular Surgery [address] [facility] [address] [place] [address] [place], Angela, INVOICING MACHINE OPERATOR Edema (Primary Dx); Encounter for change or removal of nonsurgical wound dressing; Ulcer of calf, unspecified laterality, with unspecified severity (HCC) [707.12] 06/05/2015 9:15 AM EDT Nurse Visit [facility] General Vascular Surgery [address] [facility] [address] [place] [address] [place], Angela, INVOICING MACHINE OPERATOR Edema (Primary Dx); Encounter for change or removal of nonsurgical wound dressing; Ulcer of calf, unspecified laterality, with unspecified severity (HCC) [707.12] 05/30/2015 10:20 AM EDT Office Visit [facility] General Vascular Surgery [address] [facility] [address] [place] [address] [address] Shira Snow, BOOKY Morbid obesity (Primary Dx); Ulcer of lower extremity, right, with unspecified severity (HCC) [707.10]; Ulcer of lower extremity, left, with unspecified severity (HCC) [707.10]; Chronic venous insufficiency; Venous stasis of lower extremity 03/15/2015 8:40 AM EDT Office Visit [facility] General Vascular Surgery [address] [facility] [address] [place] [address] St Shira Snow NP Edema (Primary Dx); Ulcers of both lower legs 03/08/2015 9:00 AM EDT Nurse Visit [facility] General Vascular Surgery [address] [facility] [address] [place] [address] Angela Aviles LPN Edema (Primary Dx); Encounter for change or removal of nonsurgical wound dressing; Ulcer of calf, unspecified laterality, with unspecified severity (HCC) [707.12]; Ulcer of ankle, unspecified laterality, with unspecified severity (HCC) [707.13] 03/04/2015 8:45 AM EDT Nurse Visit [facility] General Vascular Surgery [address] [facility] [address] [place] [address] Angela Aviles LPN Edema (Primary Dx); Encounter for change or removal of nonsurgical wound dressing 02/22/2015 9:00 AM EDT Nurse Visit [facility] General Vascular Surgery [address] [facility] [address] [place] [address] Angela Aviles LPN Edema (Primary Dx); Encounter for change or removal of nonsurgical wound dressing 02/15/2015 8:40 AM EDT Office Visit [facility] General Vascular Surgery [address] [facility] [address] [place] [address] St Shira Snow NP Edema (Primary Dx); Ulcer of lower extremity, right, with unspecified severity (HCC) [707.10]; Venous stasis of lower extremity 02/05/2015 2:00 PM EDT Nurse Visit [facility] General Vascular Surgery [address] [facility] [address] [place] [address] Beba Parker, INVOICING MACHINE OPERATOR Ulcer of lower limb (Primary Dx); Edema; Encounter for change or removal of nonsurgical wound dressing 02/05/2015 Telephone [facility] General Vascular Surgery [address] [facility] [address] [place] [address] Shira Meyers NP Edema 12/28/2014 8:20 AM EDT Office Visit [facility] General Vascular Surgery [address] [facility] [address] [place] [address] Shira Meyers NP Edema (Primary Dx); Ulcer of lower extremity; Venous stasis of lower extremity 12/21/2014 9:15 AM EST Nurse Visit [facility] General Vascular Surgery [address] [facility] [address] [place] [address] Essie Fuller LVN LPN Edema (Primary Dx); Encounter for change or removal of nonsurgical wound dressing; Ulcer of calf 12/14/2014 8:30 AM EST Nurse Visit [facility] General Vascular Surgery [address] [facility] [address] [place] [address] Poncho Parkera, INVOICING MACHINE OPERATOR Edema (Primary Dx); Encounter for change or removal of nonsurgical wound dressing 12/07/2014 8:20 AM EST Office Visit [facility] General Vascular Surgery [address] [facility] [address] [place] [address] Shira Meyers NP Ulcer of lower extremity (Primary Dx); Venous stasis of lower extremity 12/03/2014 9:00 AM EST Nurse Visit [facility] General Vascular Surgery [address] [facility] [address] [place] [address] Anabel Springer, INVOICING MACHINE OPERATOR Edema (Primary Dx); Encounter for change or removal of nonsurgical wound dressing 11/23/2014 9:00 AM EST Nurse Visit [facility] General Vascular Surgery [address] [facility] [address] [place] [address] Beba Parker LPN Edema (Primary Dx); Encounter for change or removal of nonsurgical wound dressing 11/16/2014 9:00 AM EST Nurse Visit [facility] General Vascular Surgery [address] [facility] [address] [place] [address] Anabel Springer LPN Edema (Primary Dx); Encounter for change or removal of nonsurgical wound dressing 11/15/2014 Telephone [facility] [address] [place] [address] Roger Johnson DPM FYI 11/09/2014 8:40 AM EST Office Visit [facility] General Vascular Surgery [address] [facility] [address] [place] [address] Shira Meyers NP Ulcer of lower extremity (Primary Dx); Venous stasis of lower extremity 08/22/2014 3:30 PM EST Minor Procedure/Test [facility] [address] [place] [address] Roger Johnson DPM Type II diabetes mellitus with peripheral circulatory disorder (Primary Dx); Onychomycosis; Peripheral angiopathy in diseases classified elsewhere; Pain in limb 08/09/2014 Telephone [facility] General Vascular Surgery [address] [facility] [address] [place] [address] Shira Meyers NP Patient Questions ; Equipment/supplies 08/09/2014 8:20 AM EDT Office Visit [facility] General Vascular Surgery [address] [facility] [address] [place] [address] Shira Meyers NP Lymphedema (Primary Dx); Ulcer of lower extremity; Chronic venous insufficiency 07/26/2014 8:20 AM EDT Office Visit [facility] General Vascular Surgery [address] [facility] [address] [place] [address] [address] [place], Shira, BOOKY Ulcer of lower extremity (Primary Dx); Chronic venous insufficiency; Morbid obesity; Venous stasis of lower extremity 07/25/2014 Telephone [facility] General Vascular Surgery [address] [facility] [address] [place] [address] Tamika Lomax MD Wound Care; Equipment/supplies 07/20/2014 10:00 AM EDT Office Visit [facility] General Vascular Surgery [address] [facility] [address] [place] [address] Tamika Lomax MD Venous stasis dermatitis (Primary Dx); Venous ulcer of leg 05/31/2014 8:40 AM EDT Office Visit [facility] General Vascular Surgery [address] [facility] [address] [place] [address] [address] [place], Shira, BOOKY Ulcer of lower extremity (Primary Dx); Chronic venous insufficiency 05/04/2014 Telephone [facility] General Vascular Surgery [address] [facility] [address] [place] [address] [address] On[place], Shira, BOOKY No Show 03/29/2014 10:00 AM EDT Office Visit [facility] General Vascular Surgery [address] [facility] [address] [place] [address] [address] [place], Shira, BOOKY Morbid obesity (Primary Dx); Ulcer of lower extremity; Venous stasis of lower extremity 02/26/2014 10:00 AM EDT Office Visit [facility] General Vascular Surgery [address] [facility] [address] [place] [address] [address] On[place], Shira, BOOKY Ulcer of lower extremity (Primary Dx); Venous stasis of lower extremity 01/29/2014 1:20 PM EDT Office Visit [facility] General Vascular Surgery [address] [facility] [address] [place] [address] [address] [place], Shira, BOOKY Ulcer of lower extremity (Primary Dx); Venous stasis of lower extremity; Morbid obesity 01/23/2014 11:00 AM EDT Office Visit [facility] General Vascular Surgery [address] [facility] [address] [place] [address] [address] [place], Shira, BOOKY Edema (Primary Dx); Morbid obesity; Ulcer of lower extremity; Venous stasis of lower extremity 01/16/2014 11:00 AM EDT Office Visit [facility] General Vascular Surgery [address] [facility] [address] [place] [address] [address] [place], Shira, BOOKY Morbid obesity (Primary Dx); Venous stasis of lower extremity; Edema; Ulcer of lower extremity 11/23/2013 Telephone [facility] [address] [place] [address] Roger Johnson DPM FYAric 11/22/2013 Telephone [facility] General Vascular Surgery [address] [place] [address] [address] [place], Shira, BOOKY No Show 10/10/2013 10:40 AM EST Office Visit [facility] General Vascular Surgery [address] [facility] [address] [place] [address] [address] On[place], Shira, BOOKY Ulcer of lower extremity (Primary Dx); Venous stasis of lower extremity 09/05/2013 9:20 AM EST Office Visit [facility] General Vascular Surgery [address] [place] [address] [address] Onge, Shira, BOOKY Morbid obesity (Primary Dx); Ulcer of lower extremity; Chronic venous insufficiency 08/15/2013 9:40 AM EDT Office Visit [facility] General Vascular Surgery [address] [facility] [address] [place] [address] [address] Onge, Shira, BOOKY Morbid obesity (Primary Dx); Ulcer of lower extremity; Venous stasis of lower extremity 08/09/2013 1:30 PM EDT Consult (Initial) [facility] [address] [place] [address] Roger Johnson DPM Type II diabetes mellitus with peripheral circulatory disorder (Primary Dx); Onychomycosis; Peripheral angiopathy in diseases classified elsewhere; Pain in limb 07/24/2013 10:30 AM EDT Office Visit [facility] General Vascular Surgery [address] [facility] [address] [place] [address] Tamika Lomax MD Venous ulcer of leg (Primary Dx); Venous insufficiency 07/07/2013 9:00 AM EDT Office Visit [facility] General Vascular Surgery [address] [facility] [address] [place] [address] Shira Meyers NP Ulcer of lower extremity (Primary Dx); Venous stasis of lower extremity; Morbid obesity 06/21/2013 2:30 PM EDT Office Visit [facility] General Vascular Surgery [address] [facility] [address] [place] [address] Tamika Lomax MD Venous ulcer of leg (Primary Dx) 06/15/2013 Telephone [facility] General Vascular Surgery [address] [facility] [address] [place] [address] Tamika Lomax MD Wound Care 06/14/2013 Minor Procedure/Test NON FC [facility] [address] [place] [address] Tamika Lomax MD 06/09/2013 Orders Only [facility] Cardiology [address] [facility] [address] [place] [address] Shilpi Vasquez Tech 06/09/2013 9:00 AM EDT Nurse Visit [facility] Pre-Admission Testing [address] [place] [address] Ally Ervin RN Leg ulcer (Primary Dx) 06/09/2013 8:00 AM EDT Office Visit [facility] Pre-Admission Testing [address] [place] [address] Yolande Garcia NP Pre-operative examination (Primary Dx); Venous ulcer of leg; Deep vein thrombosis; HTN (hypertension); Sleep apnea; Spinal stenosis 06/07/2013 2:45 PM EDT Office Visit [facility] General Vascular Surgery [address] [facility] [address] [place] [address] Tamika Lomax MD Leg ulcer (Primary Dx); Venous stasis 05/31/2013 9:00 AM EDT Nurse Visit [facility] General Vascular Surgery [address] [facility] [address] [place] [address] Stinehart, Anabel, INVOICING MACHINE OPERATOR Ulcer of lower extremity (Primary Dx); Edema; Encounter for change or removal of nonsurgical wound dressing 05/24/2013 9:20 AM EDT Office Visit [facility] General Vascular Surgery [address] [place] [address] [address] [place] [address] Shiar Meyers NP Ulcer of lower extremity (Primary Dx); Venous stasis of lower extremity 05/18/2013 Orders Only FAM PRAC UNSPECIFIED Malik Nolan DO 05/17/2013 9:15 AM EDT Nurse Visit [facility] General Vascular Surgery [address] [facility] [address] [place] [address] Stinehart, Anabel, INVOICING MACHINE OPERATOR Edema (Primary Dx); Encounter for change or removal of nonsurgical wound dressing; Ulcer of calf 05/10/2013 9:15 AM EDT Nurse Visit [facility] General Vascular Surgery [address] [place] [address] Stinehart, Anabel, INVOICING MACHINE OPERATOR Ulcer of lower extremity (Primary Dx); Edema; Encounter for change or removal of nonsurgical wound dressing 05/03/2013 9:20 AM EDT Office Visit [facility] General Vascular Surgery [address] [facility] [address] [place] [address] Shira Meyers NP Morbid obesity (Primary Dx); Ulcer of lower extremity; Venous stasis of lower extremity 04/26/2013 9:20 AM EDT Consult (Initial) [facility] General Vascular Surgery [address] [facility] [address] [place] [address] Shira Meyers NP Ulcer of lower extremity [...] stasis 1 PATCH DAILY Active [facility], TOPICAL, 679165 U/GM OintmentIndicati ons:Leg ulcer (HCC),Venous stasis None [...] 03/31/2017 Lymphedema 07/29/2016 Leg ulcer 06/07/2013 Immunizations Immunization Administration Dates Next Due COVID-19, mRNA (Pfizer Pre F all 2022) Monovalent, 30 mcg/0.3 ml 10/15/2021,01/08/2021,12/18/2020 Covid-19, mRNA (Pfizer Pre F 2022) Monovalent, 30 mcg/0.3 ml opal-sucrose (12+) 05/21/2022 Influenza,injectable,quad,Prsrv Fr 06/17/2021, Influenza,injectable,quad,pr eservativ e 07/06/2019,08/02/2018,06/29/2017,2015,07/02/2015 Influenza,recombinant,quad,i njectable ,Prsrv Fr 07/21/2022 Influenza,seasonal,trivalent ,preserva tive (FLUZONE MDV) 06/24/2012 PPV23 (Pneumovax) 09/25/2017 Tdap 12/07/2019 Zoster (Shingrix) 07/22/2022,05/06/2022 Social History Smoking Status as of 07/02/2025 Tobacco Use Types Packs/Day Years Used Date [...] 59 10/12/2019 10:07 AM EST Temperature 36.3 C (97.4 F) 06/09/2013 7:57 AM EDT Respiratory Rate 14 06/09/2013 7:57 AM EDT Oxygen Saturation - - Inhaled Oxygen Concentration - - Weight 162 kg (358 lb) 06/09/2013 7:57 AM EDT Height 175.3 cm (5' 9 ) 06/09/2013 7:57 AM EDT Body Mass Index 52.87 06/09/2013 7:57 AM EDT Plan of Treatment Not on file Procedures * Due to [place] state law, this organization might not be [...] DIAGNOSTIC PROCE 05/18/2013 Results * Due to [place] state law, this organization might not be sharing negative HIV tests. * UNSPECIFIED MAJOR PROCEDURE (09/29/2019) us Joshua Hendrix MD PROCEDURES Final Resul t * (ABNORMAL) CBC WITH 5 PART DIFF (02/19/2017 7:20 AM EDT) Only the most recent of3 resultswithin the time period is included. WHITE BLOOD COUNT 6.4 3.9 - 11.0 x1000/uL [facility] Comment: Smear review performed when a >50% change is noted in any parameter, or more than 72 hours has elapsed since the last CBC. RBC 3.47(L) 4.30 - 5.80 mil/ul [facility] Hemoglobin 10.8(L) 12.5 - 17.0 g/dL [facility] HCT (HEMATOCRIT) 33.4(L) 36.0 - 50.0 % [facility] MCV 96 80 - 100 fL [facility] MCH 31 27 - 33 pg [facility] MCHC 32 31 - 36 g/dL [facility] RDW 14.7(H) 11.4 - 14.4 % [facility] PLATELETS 337 150 - 450 x1000/uL [facility] MPV 9.6 7.0 - 11.0 fL [facility] NEUTROPHILS 69 % [facility] LYMPHOCYTE % 16 % [facility] MONOCYTE % 12 % [facility] EOSINOPHIL % 2 % [facility] BASOPHIL % 1 % [facility] NEUTROPHILS (#) 4.4 1.8 - 7.0 x1000/uL [facility] LYMPHOCYTES # 1.0 0.7 - 4.5 x1000/uL [facility] MONOCYTES # 0.8 0.1 - 0.8 x1000/uL [facility] EOSINOPHILS # 0.1 0.0 - 0.4 x1000/uL [facility] BASOPHILS # 0.1 0.0 - 0.2 x1000/uL [facility] 02/19/2017 7:20 AM EDT 02/19/2017 7:20 AM EDT Tamika Lomax MD LABORATORY Final Res ult Performing Organization Address [facility] de Phone Number [facility] [address] [place] [address] * (ABNORMAL) PROTHROMBIN TIME (02/19/2017 7:20 AM EDT) Only the most recent of3 resultswithin the time period is included. PT (PROTHROMBIN TIME) 19.0(H) 9.1 - 12.0 sec [facility] INR 1.8(L) 2.0 - 3.5 [facility] Comment: INR reference interval applies to patients on anticoagulant therapy. Suggested INR therapeutic range for oral anticoagulant therapy:(Stabilized anticoagulated patients) Routine Therapy: 2.0-3.0 Recurrent Myocardial Infarction or Mechanical Prosthetic Valves: 2.5-3.5 02/19/2017 7:20 AM EDT 02/19/2017 7:20 AM EDT Tamika Lomax MD LABORATORY Final Res ult Performing Organization Address [facility] Co de Phone Number [facility] [address] [place] [address] * URINALYSIS,C&S IF INDICATED (02/18/2017 8:33 PM EDT) COLOR (URINE) YELLOW [facility] APPEARANCE (URINE) CLOUDY [facility] GLUCOSE (URINE) NEGATIVE Negative mg/dL [facility] BILIRUBIN (URINE) NEGATIVE Negative [facility] Ketones (Urine) NEGATIVE Negative mg/dL [facility] SPECIFIC GRAVITY 1.022 1.005 - 1.030 [facility] BLOOD (URINE) NEGATIVE Negative [facility] PH (URINE) 5.5 5.0 - 8.0 [facility] PROTEIN (URINE) NEGATIVE Neg-Trace mg/dL [facility] UROBILINOGEN 0.2 0.2 - 1.0 mg/dL [facility] NITRITE (URINE) NEGATIVE Negative [facility] WBC (URINE) NEGATIVE Negative [facility] Microscopic (Urine) [facility] Comment:Microscopic not leonor cated Culture Indication NO [facility] 02/18/2017 8:33 PM EDT 02/18/2017 8:33 PM EDT us Tamika Lomax MD LABORATORY Final Res ult Performing Organization Address City/[facility] Co de Phone Number [facility] [address] [place] [address] * CULTURE, BLOOD #2 (02/17/2017 3:10 PM EDT) SOURCE: Venipuncture [facility] Result(s) No growth after 5 days incubation [facility] REPORT STATUS: Final [facility] 02/17/2017 3:10 PM EDT 02/17/2017 3:10 PM EDT us Tamika Lomax MD LABORATORY Final Res ult Performing Organization Address City/[facility]/ZIP Co de Phone Number [facility] [address] [place] [address] * CULTURE, BLOOD #1 (02/17/2017 3:05 PM EDT) SOURCE: Venipuncture [facility] Result(s) No growth after 5 days incubation [facility] REPORT STATUS: Final [facility] 02/17/2017 3:05 PM EDT 02/17/2017 3:05 PM EDT us Tamika Lomax MD LABORATORY Final Res ult [facility] [address] [place] [address] * PHOSPHORUS (02/17/2017 3:05 PM EDT) PHOSPHATE 3.0 2.5 - 4.5 mg/dL [facility] 02/17/2017 3:05 PM EDT 02/17/2017 3:05 PM EDT Tamika Lomax MD LABORATORY Final Res ult Performing Organization Address City/[facility]/ZIP Co de Phone Number [facility] [address] [place] [address] * MAGNESIUM (02/17/2017 3:05 PM EDT) MAGNESIUM 1.8 1.6 - 2.6 mg/dL [facility] 02/17/2017 3:05 PM EDT 02/17/2017 3:05 PM EDT Tamika Lomax MD LABORATORY Final Res ult Performing Organization Address [facility] Co de Phone Number [facility] [address] [place] [address] * (ABNORMAL) BASIC METABOLIC PANEL (02/17/2017 3:05 PM EDT) Glucose 128(H) 65 - 99 mg/dL [facility] BUN 11 5 - 26 mg/dL [facility] CREATININE 0.93 0.5 - 1.5 mg/dL [facility] BUN/Creatinine Ratio 12 8 - 27 [facility] GLOM FILT RATE, EST 94.1 >59 mL/min [facility] IF -KENNETH N 109.0 >59 mL/min [facility] SODIUM 139 134 - 144 mEq/L [facility] POTASSIUM 3.7 3.6 - 5.6 mEq/L [facility] CHLORIDE 104 96 - 109 mEq/L [facility] CARBON DIOXIDE 23 20 - 32 mEq/L [facility] ANION GAP 12.0 8 - 15 [facility] CALCIUM 8.5 8.3 - 10.0 mg/dL [facility] 02/17/2017 3:05 PM EDT 02/17/2017 3:05 PM EDT Tamika Lomax MD LABORATORY Final Res ult [facility] [address] [place] [address] * CXR 2 VIEW AP/PA AND LAT (02/17/2017 1:59 PM EDT) RADIOLOGY REPORT [facility] Department of Radiology [address] [place] [address], [id number] Name: RICARDO REECE : 63 Date of Service: 02/17/171454 Acct Number: [id number] Order Number: [id number] Location: [facility] Report Number: [id number] Service: ADM IN/HENRRY Requesting Physician: Larry Burgos Category: RADIOLOGY [facility] Exam: CHEST 2 VIEW (DEPARTMENT) Signs/Symptoms: eval for pneumonia Report Status: Signed Chest X-ray, 2 views History: eval for pneumonia Comparison: None. AP upright and [...] is seen. Date/Time of Dictation: 02/17/17 1503 Signal Person (if applicable): Approved By Attending Radiologist: Dylon Garcia 02/17/17 1503 [facility] Department of Radiology [address] [place] [address], [address] [facility] Anatomical Region Laterality Modality Other 02/17/2017 1:59 PM EDT Narrative 02/17/2017 3:04 PM EDT Reason for Study/History: Department of Radiology TEST(S) PROCESSED BY [facility] XRAY Unknown Provider [facility] IMAGING-[facility] Final Resul t * CULTURE,ANAEROBIC (06/14/2013 10:50 AM EDT) SOURCE: Tissue wound rt leg [facility] GRAM STAIN Many (>25/lpf) WBC No bacteria seen [facility] Result(s) No anaerobes isolated Aerobic Gram Positive Cocci [facility] REPORT STATUS: Final [facility] 06/14/2013 10:5 0 AM EDT 06/14/2013 10:50 AM EDT Tamika Lomax MD LABORATORY Final Res ult Performing Organization Address [facility] Co de Phone Number [facility] [address] [place] [address] * CULTURE,ANY SOURCE (06/14/2013 10:48 AM EDT) SOURCE: Tissue wound rt leg [facility] GRAM STAIN Many (>25/lpf) WBC No bacteria seen [facility] Result(s) Streptococcus species Group G - Light growth (1-2+) Mixed gram positive organisms - Rare growth [facility] REPORT STATUS: Final [facility] 06/14/2013 10:4 8 AM EDT 06/14/2013 10:48 AM EDT us Tamika Lomax MD LABORATORY Final Res ult Performing Organization Address City/[facility]/ZIP Co de Phone Number [facility] [address] [place] [address] * UNSPECIFIED MAJOR PROCEDURE (06/14/2013) Narrative Transcriptions [...] was 16 cm2. SURGEON: Dr. Tamika Lomax. LEAD SALES CONSULTANT: Dr. Bradley. ANESTHESIA: General. ESTIMATED BLOOD LOSS: [...] underneath. Once this was accomplished, the [employer] clinical cytopathologist was brought into the field and the [...] 11:51 A TT: 12:06 P Doc #: [id number] cc: MD Malik Washburn MD Tamika Lomax [...] 06/09/2013 7:25 AM EDT us Yolande Garcia BOOKY CARDIOVASCULAR-WITH INBSKT R TG Final Result MUSE EKG SYSTEM * UNSPECIFIED DIAGNOSTIC PROCE (05/18/2013) Narrative Transcriptions Malik Nolan, - 06/13/2013 12:00 AM EDT us Malik Nolan DO LABORATORY Final Res ult [...] Onychomycosis Dermatophytosis of nail 10/31/2015 Atherosclerosis of tribe artery of both lower extremities, with unspecified [...] lower legs, limited to breakdown of skin ([facility]) 12/22/2017 Lymphedema Other lymphedema 12/22/2017 Edema, unspecified [...] Onychomycosis Dermatophytosis of nail 04/13/2018 Atherosclerosis of tribe artery of both lower extremities, with unspecified [...] lower legs, limited to breakdown of skin ([facility]) 06/01/2018 Spinal stenosis of lumbar region with [...] with neurogenic claudication 08/15/2018 BMI 50.0-59.9, adult ([facility]) Body Mass Index 50.0-59.9, adult 08/15/2018 Trigger [...] of right lower extremity, unspecified ulcer stage ([facility]) 07/04/2019 Lymphedema of both lower extremities 07/04/2019 [...] right leg, limited to breakdown of skin ([facility]) 03/05/2021 Care Teams Ceramic Tile Mechanic Relationship Specialty Start Date End Date Destiny Trinidad MD [facility] [address] [place] [address] PCP - General Family Medicine 12/22/17
== END 2025-07-02 10:48 | disposition home or self-care (01) ==
LOC: HO.HGI 10:04
PROVIDERS: Visit Provider Internal Medicine Gastroenterology
DX: K86.89 Other specified diseases of pancreas (principal)
CPT/HCPCS: 99213

== ENCOUNTER → 2025-07-02 10:03 | Outpatient (BNVA) | payer MEDICARE, MEDICAID, SELFPAY | PROVIDERS: Visit Provider Internal Medicine Gastroenterology | DX: R14.3 Flatulence (principal); K86.89 Other specified diseases of pancreas; R19.7 Diarrhea, unspecified | CPT/HCPCS: 99212 ==

== ENCOUNTER 2025-07-09 11:44 | Outpatient (AMB) | payer MEDICARE, MEDICAID, SELFPAY ==
--- NOTE | 2025-07-09 11:54 | A.OFFVIS_ITS ---
Intake Visit Reasons: stent removal follow up Intake Note: Patient is present for stent removal follow up Urology Medication:TAMSULOSIN, GEMTESA, OXYBUTYNIN Antibiotic Allergy:PENICILLIN,SULFA,AMOXICILLIN,VANCOMYCIN,CLINDAMYCIN Blood Thinner:ELIQUIS PVR:0ml Vp Of Digital Marketing Required: No Allergies cefaclor (From Ceclor) Allergy (Severe, Verified 07/09/25 11:55) hives epanolol Allergy (Severe, Verified 07/09/25 11:55) hives misoprostol Allergy (Severe, Verified 07/09/25 11:55) rash NSAIDS (Non-Steroidal Anti-Inflamma Allergy (Severe, Verified 07/09/25 11:55) GI upset Penicillins Allergy (Severe, Verified 07/09/25 11:55) hives, rash, itching Sulfa (Sulfonamide Antibiotics) Allergy (Severe, Verified 07/09/25 11:55) Hives Cephalosporins Allergy (Intermediate, Verified 07/09/25 11:55) hives amoxicillin Allergy (Mild, Verified 07/09/25 11:55) rash vancomycin Allergy (Mild, Verified 07/09/25 11:55) itching clindamycin Adverse Reaction (Intermediate, Verified 07/09/25 11:55) Rash Medication List - Last Reconciled 07/09/25 by Therese Soto MD apixaban 5 mg PO BID calcium carbonate-vitamin D3 600 mg-10 mcg (400 unit) 1 tab PO DAILY colesevelam 1,250 mg (2 x 625 mg) PO BID iron,carbonyl-vitamin C 65 mg iron- 125 mg (Vitron-C) 1 tab PO DAILY wmlptk-hkezapyn-xlminhq 24,000-76,000 -120,000 unit (Creon) 2 caps PO BID metoprolol tartrate 50 mg See Protocol PO BID multivitamin with folic acid 400 mcg (Daily-Brent (with folic acid)) 1 tab PO DAILY omeprazole 40 mg PO DAILY oxybutynin chloride ER 15 mg PO DAILY oxycodone 5 mg PO Q6H PRN sertraline 100 mg PO DAILY simethicone (Gas Relief (simethicone)) 125 mg PO BID-QID PRN sucralfate 10 mL PO BID PRN tamsulosin 0.4 mg PO DAILY vibegron (Gemtesa) 75 mg PO DAILY HPI Comments Details: 07/09/25--Vinod is here for follow-up he was last seen on 04/26/2025 and had ureteral stent removed by Dr. Mancilla. He is followed for lower urinary tract symptoms of urgency, BPH. He is prescribed medications oxybutynin, Gemtesa and tamsulosin. Bladder scan PVR 0 mL. He has history of kidney stones. Last imaging study 03/27/2025 right renal calculi with an obstructing right UPJ stone for which Dr. Mancilla treated with lithotripsy and stent on 03/28/25 and subsequent stent removal in the office on 04/26/2025. History of Present Illness The patient is a 59-year-old male presenting with lower urinary tract symptoms and Benign Prostatic Hyperplasia (BPH). He was last seen on 04/26/25, during which a renal stent was removed by Dr. Mancilla. The patient has been experiencing urgency and is currently on medications including oxybutynin, gemtesa, and tamsulosin. The patient has a history of kidney stones, with the last imaging study on 03/27/25 showing right renal calculi and an obstructing right UPJ stone. This was treated with lithotripsy and a stent, followed by stent removal on 04/26/25. The patient was hospitalized for this condition, and there were two other small rig ht renal stones noted in the kidney during a CAT scan in March. Results - Imaging study on 03/27/25 showed right renal calculi and obstructing right UPJ stone Plan 1. Benign Prostatic Hyperplasia (Bph) and OAB ---Morbid Obesity- Comorbidity - Continue current medications: oxybutynin, gemtesa, and tamsulosin. - Monitor urinary symptoms and adjust treatment as necessary. - Perform PSA blood test to assess prostate health. 2. History Of Kidney Stones - Monitor existing kidney stones noted in the CAT scan. 12/20/24-- Allanis a 59-year-old male presenting with lower urinary tract symptoms. His urinary symptoms, including frequency and incontinence, have been managed with Gemtesa and oxybutynin, which he reports as effective. A previous CT scan-06/2024 incidentally revealed a right kidney stone, yet he remains asymptomatic. He is unable to provide Urine specimen today. Bladder scan PVR - minimal. CoMorbidity- Morbid Obesity. The patient states his PCP has recently started Wegovy, he has received samples awaiting insurance approval. Urinary Symptoms Review - Increased urinary frequency - Urinary incontinence managed with Gymtesa and oxybutynin - Asymptomatic right kidney stone identified previously - Bladder scan post-void residual of 24 mL - No renocolic or flank pain reported Results - CT scan (07/10/2024): Incidental finding of a 5 mm stone in the right kidney lower pole. 08/09/24--Jan states the addition of the gemtesa to the oxybutynin has helped his bladder symptoms. I have discussed CTAP results--right kidney stone. Patient denies renal colic symptoms. 04/28/24--Seen in the past for urinary incontinence. The patient states he is on oxybutynin 20 mg in the morning (15 mg and 5 mg tablets). He states that he is still leaking and has the urge to go to the bathroom frequently. He is prescribed tamsulosin 0.4 mg daily. The patient states that he was hospitalized at [facility] for CHF, he was told that there was kidney function issues. He had follow-up labs with his primary which noted improvement in the kidney function. He is brought labs into the office. He is unable to give a urine sample today. Bladder scan PVR 21 mL. Will order imaging to check urinary tract. Discussed combination therapy for voiding dysfunction. Will add Gemtesa 75 mg to take in the afternoon continue oxybutynin 15 mg in the morning. [facility] Medical History Nocturnal hypoxemia Somnolence, daytime Loud snoring SHAYLA (obstructive sleep apnea) Paroxysmal A-fib Atrial flutter PAF (paroxysmal atrial fibrillation) On beta paty at home On anticoagulant therapy SHAYLA on CPAP Bronchial asthma Restrictive lung disease Migration of vascular stent Pulmonary embolus Family history of stent Uncomplicated opioid dependence Lymphedema Lumbar disc disease Venous stasis Hyperlipidemia Neurogenic bladder Dyspnea Lumbar disc prolapse with root compression History of kidney stones GERD (gastroesophageal reflux disease) OA (osteoarthritis) Morbid obesity Asthma Depression Essential hypertension Surgical History Hx of cervical spine surgery S/P IVC filter S/P appendectomy Hx of colonoscopy History of esophagogastroduodenoscopy (EGD) Hx of eye surgery Hx of gastric bypass Family History Mother Diabetes Father Brain cancer Sister Diabetes Sister Diabetes Sister Diabetes Brother Blind Brother No problems noted. Brother No problems noted. Brother No problems noted. Brother No problems noted. Daughter No problems noted. Daughter Mental health disorder Son Mental health disorder Son No problems noted. Son No problems noted. Social History Household Members: Spouse and Children Household Members Other:: - 5 kids Housing: House Are you a primary patient care secretary to a significant other at home: No Do you presently have visiting nurse or other home services: No Alcohol intake: former Year quit: 1979 Comment: uses cane at times- knee gives out Patient Tobacco Use Status: Never used Tobacco Second Hand Smoke Exposure: No Advance Directives Date on File: 08/14/21 service: No Current occupational status: disabled Current occupation: rt handed Review of Systems Const All systems reviewed & are unremarkable except as noted in HPI and below Reports no additional complaints Eyes Reports no additional complaints ENT Reports no additional complaints Card Reports no additional complaints Resp Reports no additional complaints GI Reports no additional complaints Reports as per HPI Musc Reports no additional complaints Skin/Breast Reports system reviewed and no additional complaints, except as documented Neuro Reports no additional complaints Psych Reports no additional complaints Endo Reports no additional complaints Pierre/Lymph Reports no additional complaints Aller/Immun Reports no additional complaints Office Procedures Post Void Residual Post Residual Void Post Void Residual (PVR): 0 39145-Lpbm Void Residual by ultrasound Results Reviewed Results Reviewed: Date of Service: 03/27/25 Comparison: CT - CT ABDOMEN PELVIS W IV CON - 03/27/25 17:41 EDT Findings: The lung bases are clear. Gallbladder is within normal limits. Moderate right perinephric fat stranding. Multiple ill-defined regions of hypodensity within the right renal parenchyma. Nonobstructing 4 mm calculus within the right interpolar kidney posteriorly. Nonobstructing punctate calculus within the superior pole right kidney. Mild right hydronephrosis. Right ureteropelvic junction calculus measuring 3 mm. No bowel obstruction, pneumoperitoneum, or pneumatosis. Small hiatal hernia. Inferior vena cava stent is present. Pelvic contents unremarkable. Appendix is not seen. No acute fracture. IMPRESSION: 1. Right ureteropelvic junction calculus associated with right hydronephrosis. 2. Findings suggestive of right pyelonephritis. Correlation with urinalysis recommended. 3. Small hiatal hernia. Date of Service: 07/10/24 CT ABDOMEN AND PELVIS WITHOUT CONTRAST CLINICAL INFORMATION: Unspecified symptoms and signs involving the genitourinary system. COMPARISON: CT enterography 11/17/2022. TECHNIQUE: Multidetector volumetric imaging was performed from the superior aspect of the liver through the pubic symphysis. Sagittal and coronal reformatted images were obtained on the technologist's workstation. This CT examination was performed using dose optimization techniques as appropriate, variously including the following: *Automated exposure control *Adjustment of mA and/or kV according to patient size (this includes techniques or standardized protocols for targeted exams where dose is matched to indication/reason for exam; i.e. extremities or head) *Use of iterative reconstruction technique DLP: 1079 mGy-cm Examination submitted for interpretation 09/15/2024. FINDINGS: Study somewhat limited by patient habitus. This results in beam starvation artifact, mildly limiting detection of subtle findings. LUNG BASES: -There are patchy round glass type opacities within the lingula, right middle lobe, and right lower lobe, which have an inflammatory or infectious type appearance. These appear more numerous than on the previous exam although were present in the left lower lobe on the prior. Process appears to be ongoing. -There are no effusions. -There is bronchiectasis in both lower lobes without bronchial wall thickening. -There is mild/moderate cardiomegaly. There are mild coronary calcifications. There is no pericardial effusion. -Patulous appearing distal esophagus leads into a hiatus hernia and gastric bypass procedure. LIVER, GALLBLADDER, AND BILIARY TREE: -Unenhanced liver demonstrates no discrete abnormality. Normal in attenuation. Increased size, with craniocaudal length of 24 cm. - The gallbladder demonstrates no evidence of gallbladder wall thickening, or obvious pericholecystic inflammatory changes. - Suspect gallstones present (series 3, image 33). No biliary dilatation. PANCREAS: Unremarkable. SPLEEN: Unremarkable. ADRENAL GLANDS: Unremarkable. KIDNEYS AND URETERS: -Left kidney normal . -Right kidney demonstrates a 5 mm calculus in the lower pole, nonobstructing. Right kidney is otherwise normal. -There is mild nonspecific perirenal stranding bilaterally. -Ureters are nondilated. BLADDER: The urinary bladder is completely decompressed and contains intraluminal gas. No significant wall thickening noted or inflammatory change. Gas is likely present from iatrogenic cause. GASTROINTESTINAL TRACT: -Post gastric bypass. Hiatus hernia. Patulous appearing distal esophagus. -Excluded stomach, duodenum, and small bowel appear normal. -The colon appears normal. No rectal abnormality. -No acute findings in the GI system. ABDOMINAL WALL: -Morbid obesity. -Prominent inguinal lymph nodes are present, stable from prior exam, presumably reactive in nature. There is a small fat-containing periumbilical hernia. -Grossly no masses or fluid collections present. -Generalized atrophy of the pelvic girdle musculature, presumably from sedentary state. LYMPH NODES: -Prominent inguinal lymph nodes as above, unchanged. -Mildly enlarged external iliac lymph nodes right greater than left, with left measuring up to 1.5 x 2.7 cm (series 3, image 88), unchanged suggesting benignity and reactive etiology. -No additional lymphadenopathy present. VASCULAR: -There is a stent within the IVC. -There is no aneurysm or significant atheromatous changes. PELVIC VISCERA: -The prostate is small and difficult to visualize. -Otherwise normal. OSSEOUS STRUCTURES: -There is generalized osteopenia. This appears most notable in the lower lumbar spine. -There are moderate degenerative changes throughout the spine, as well as the left greater than right hip joints. -Is no acute or suspicious bony abnormality. IMPRESSION: 1. No hydronephrosis or hydroureter. There is a 5 mm nonobstructing calculus in the right kidney lower pole. 2. Decompressed urinary bladder with intraluminal gas, presumably from either self catheterization or iatrogenic. 3. Additional ancillary findings as discussed in the body of the report. Assessment & Plan Assessment & Plan (1) Screening PSA (prostate specific antigen): Code(s): Z12.5 - Encounter for screening for malignant neoplasm of prostate Category: Medical (2) Morbid obesity: Code(s): E66.01 - Morbid (severe) obesity due to excess calories Category: Medical (3) Urinary frequency: Code(s): R35.0 - Frequency of micturition Category: Medical (4) Urge incontinence of urine: Code(s): N39.41 - Urge incontinence Category: Medical (5) Right renal stone: Code(s): N20.0 - Calculus of kidney Category: Medical Plan Plan 1. Benign Prostatic Hyperplasia (Bph) and OAB - Continue current medications: oxybutynin, gemtesa, and tamsulosin. - Monitor urinary symptoms and adjust treatment as necessary. - Perform PSA blood test to assess prostate health. 2. History Of Kidney Stones - Monitor existing kidney stones 3. Urinary incontinence- pt wears pullups, requesting script and inquiring on XXLarge pullups Orders: Orders AMB Post Void Residual by ultrasound Today N32.81 - Overactive bladder, N39.41 - Urge incontinence, N40.1 - Benign prostatic hyperplasia with lower urinary tract symptoms, R33.9 - Retention of urine, unspecified PSA,Total (Free>4and<10) Today Z12.5 - Encounter for screening for malignant neoplasm of prostate Medications: New tamsulosin 0.4 mg PO DAILY 90 caps 1RF Patient Instructions: The patient had an opportunity to ask questions regarding treatment plan. The patient expressed understanding and agreement with the above treatment plan. The patient is aware they should contact our office by phone for worsening of their current condition or the appearance of new symptoms. Compliance is encouraged with any medications and followup testing that is ordered. It is a privilege to be allowed the opportunity to participate in the urologic care of your patient. If you have any questions or concerns regarding treatment for the above conditions please do not hesitate to contact me. The office telephone contact is [phone]. This note is constructed in part using voice recognition software. While every effort has been made to ensure accuracy rodeo performer errors may have been included. Yours sincerely, Therese Soto MD Scribe Plan - Not visible on output: Patient was informed and verbally consented to the use of an ambient scribe for clinic note documentation during this visit. Coding Level of Care Code Est Pt Level 4 (59677) Complex EM visit Add On G2211 Diagnoses Screening PSA (prostate specific antigen) Z12.5 Morbid obesity E66.01 Urinary frequency R35.0 Urge incontinence of urine N39.41 Right renal stone N20.0 CPT Codes Post Residual Void - PVR CPT Code: 65643-Uart Void Residual by ultrasound ([id number])
--- OUTSIDE RECORDS SUMMARY | 2025-07-09 14:28 | XMS_ITS | Encounter Summary ---
Author Organization [facility] Address [address] [place] [address] Phone Care Team Providers Care Bakelite Molder Name Role Phone Pcp, Unknown Primary Care Provider Unavailabl Damion Brice MD Unavailable [phone] Raza Alonso MD Unavailable [phone] Gema Hilton NP Unavailable [phone] Destiny Trinidad MD Unavailable Malik Nolan DO Unavailable Destiny Trinidad MD Primary Care Provider Destiny Trinidad MD Primary Care Provider Encounter Details Date Type Department Care Team (Latest Contact Info) Description 06/12/2016 Transcribe Orders [facility] [address] [place] [address] Raza Alonso MD [address] [place] [address], [address] [place] [address] [email or web address] Other chest pain (Primary Dx) Social History Tobacco Use Types Packs/Day Years Used Date Smoking Tobacco: Former Sex and Gender Information Value Date Recorded Sex Assigned at Not on file Legal Sex Male 6:46 PM EST Gender Identity Not on file Sexual Orientation Not on file documented as of this encounter Plan of Treatment Upcoming Encounters Date Type Department Care Team ([facility] st Contact Info) Description 09/18/2025 10:30 AM EST Follow-Up [facility] [address] [place] [address] Destiny Trinidad MD [address] [place] [address] [email or web address] documented as of this encounter Visit Diagnoses Diagnosis Other chest pain- Primary documented in this encounter Care Teams Bakelite Molder Relationship Specialty Start Date End Date Pcp, Unknown PCP - General 06/01/16 05/23/17 Destiny Trinidad MD [address] [place] [address] [email or web address] PCP - General Family Medicine 05/24/17 06/10/20 Destiny Trinidad MD [address] [place] [address] [email or web address] PCP - General Family Medicine 06/11/20 Damion Maynard MD [address] [place] [address] [address] [place] [address] Historical LMR Provider 05/01/17 7 Raza Alonso MD [address] [place] [address] [address] [place] [address] [email or web address] Historical LMR Provider 05/01/17 05/23/17 Gema Hilton NP [address] [place] [address] Historical LMR Provider 05/01/17 8 7 Destiny Trinidad MD [address] [place] [address] [email or web address] Historical LMR Provider 05/01/17 8 Malik Nolan DO [address] [address] Historical LMR Provider 05/01/17 8 7 documented as of this encounter Additional Source Comments The information contained in this document represents components of the legal health record. It is not the complete legal health record.[facility]
--- OUTSIDE RECORDS SUMMARY | 2025-07-09 14:28 | XMS_ITS | Encounter Summary ---
Author Organization [facility] Address [address] [place] [address] Care Team Providers Care Extruding Press Adjuster Name Role Phone Damion Maynard MD Primary Care Provider U Destiny Dewey MD Primary Care Provider [phone] Reason for Visit * Reason Comments Appointment tomorrow Unna Boot Application Encounter Details Date Type Department Care Team (Late st Contact Info) Description 02/16/2017 Telephone [facility] General Vascular Surgery [address] [facility] [address] [place] [address] Shira Meyers NP Appointment (tomorrow); Unna Boot [...] doctor at the [facility] in [place] at 10:30 - a Dr. Zelaya-who is going to want to talk to Shira Meyers about his situation. So patient is asking to be seen in time tomorrow to get to his 10 30 appointment in [place] He will be cancelling his other [place] appointment with Podiatry at 8:30. Please advise [phone] documented in this encounter Plan of Treatment Not on file documented as of this encounter Visit Diagnoses Not on filedocumented in this encounter Care Teams Extruding Press Adjuster Relationship Specialty Start Date End Date Damion Maynard MD PCP - General Family Medicine 05/20/16 12/21/17 Destiny Trinidad MD [facility] [address] [place] [address] PCP - General Family Medicine 12/22/17 documented as of this encounter
--- OUTSIDE RECORDS SUMMARY | 2025-07-09 14:28 | XMS_ITS | Encounter Summary ---
Author Organization [facility] Address [address] [place] [address] Phone Care Team Providers Care Gang Head Saw Operator Name Role Phone Destiny Trinidad MD Primary Care Provider Reason for Visit * Reason Comments Med Change Request Encounter Details Date Type Department Care Team (Late st Contact Info) Description 04/19/2025 Meli [facility] [address] [place], [place] [id number] Adilia Mack CNP [address] [place] [address] [email or web address] Med Change Request Social History Tobacco Use [...] Info) Description 09/18/2025 10:30 AM EST Follow-Up [facility] [address] [place] [address] Destiny Trinidad MD [address] [place] [address] documented as of this encounter Goals Goal [...] documented as of this encounter Care Teams Gang Head Saw Operator Relationship Specialty Start Date End Date Destiny Trinidad MD [address] [place] [address] PCP - General Family Medicine 06/11/20 documented as of this encounter Additional Source Comments The information contained in this document represents components of the legal health record. It is not the complete legal health record.[facility]
--- OUTSIDE RECORDS SUMMARY | 2025-07-09 14:28 | XMS_ITS | Encounter Summary ---
Author Organization [facility] Address [address] [place] [address] Care Team Providers Care Hot Die Press Operator Name Role Phone Damion Maynard MD Primary Care Provider U Destiny Dewey MD Primary Care Provider [phone] Encounter Details Date Type Department Care Team (Late st Contact Info) Description 08/19/2016 Telephone [facility] General Vascular Surgery [address] [facility] [address] [place] [id number] Shira Meyers NP Social History Tobacco Use [...] on filedocumented in this encounter Care Teams Hot Die Press Operator Relationship Specialty Start Date End Date Damion Maynard MD PCP - General Family Medicine 05/20/16 12/21/17 Destiny Trinidad MD [facility] [address] [place] [address] PCP - General Family Medicine 12/22/17 documented as of this encounter
--- OUTSIDE RECORDS SUMMARY | 2025-07-09 14:28 | XMS_ITS | Patient Health Record ---
Author Organization [facility] Address [address] [place] [address] [place] [id number] Care Team Providers Care Mallet Cutter Name Role Phone SHIRA DOUGLAS MD Primary Care Provider Unav ailable JAVIDPAYTON IKE Unavailable [phone] Allergies Allergen (clinical drug ingredient) Drug/Non Drug [...] MG 1 tab(s) orally 4 timesonce a mmoo day; Duration: 14 day(s) Active Furosemide 40 [...] Status Risk Notes Problem Adverse drug effect (26367845) Adverse Effect Of Drug (995.20) Active confirmed Plan Of Treatment No Information Insurance Providers Payer Name Payer Address Payer Phone Subscriber Number Group Number Insured Name Patient Relationship to Insured Coverage Start Date Coverage End Date MEDICARE [address] [place] [id number] Rhina clarker Jan Self - patient is the insured [facility] [address] [address] [place] [address] [id number] Rhnia jovel Jan Self - patient is the insured Medical (General) History Medical History History ICD Code Esophageal reflux spinal stenosis diabetes mallitus Edema blood clots Surgical History Surgery Date(Month/Year) gastric bypass 2003 Hospitalization History Reason Date(Month/Year) medication reaction 2011
--- OUTSIDE RECORDS SUMMARY | 2025-07-09 14:28 | XMS_ITS | Encounter Summary ---
Author Organization [facility] Address [address] [place] [address] Care Team Providers Care Rib Matcher And Fitter Name Role Phone Damion Maynard MD Primary Care Provider U Destiny Dewey MD Primary Care Provider [phone] Reason for Visit * Reason Comments Unna Boot Application Encounter Details Date Type Department Care Team (Late st Contact Info) Description 03/30/2017 Telephone [facility] General Surgery [address] [facility] [address] [place] [address] Shira Meyers NP Unna Boot Application Social [...] week on schedule0 Please call to advise [phone] documented in this encounter Plan of Treatment Not on file documented as of this encounter Visit Diagnoses Not on filedocumented in this encounter Care Teams Rib Matcher And Fitter Relationship Specialty Start Date End Date Damion Maynard MD PCP - General Family Medicine 05/20/16 12/21/17 Destiny Trinidad MD [facility] [address] [place] [address] PCP - General Family Medicine 12/22/17 documented as of this encounter
--- OUTSIDE RECORDS SUMMARY | 2025-07-09 14:28 | XMS_ITS | Encounter Summary ---
Author Organization [facility] Address [address] [place] [address] Care Team Providers Care Dope Maintenance Worker Name Role Phone Destiny Trinidad MD Primary Care Provider [phone] Steven Ch MD Unavailable [phone] Encounter Details Date Type Department Care Team (Late st Contact Info) Description 09/24/2021 Prep for Surgery [facility] [address] [place] [phone] Nav Simmons PA-C [address] [place] [id number] Preop examination (Primary Dx) Social History Tobacco [...] examination documented in this encounter Care Teams Dope Maintenance Worker Relationship Specialty Start Date End Date Destiny Trinidad MD [address] [address] PCP - General 09/25/21 Steven Ch MD [address] [place] [address] 3rd [place] [address] Surgical Aide Cardiovascular Disease 09/25/21 documented as of this encounter
--- OUTSIDE RECORDS SUMMARY | 2025-07-09 14:28 | XMS_ITS | Clinical Summary ---
Author Organization [facility] Address [address] [place] [address] Care Team Providers Care Grinder And Plater Name Role Phone Destiny Trinidad MD Primary Care Provider [phone] Steven Ch MD Unavailable [phone] Allergies Active Allergy Reactions Criticality Noted [...] (three) times a day. Active nystatin (MYCOSTATIN) 872169 UNIT/GM cream Apply topically 2 (two) times [...] Dates Next Due Covid-19 MRNA Vaccine - [employer] 12+ (Purple Cap) 10/13/2021 Family History Medical [...] complete this [place] [id number] [facility] MEDICARE [facility] Care Teams Grinder And Plater Relationship Specialty Start Date End Date Destiny Trinidad MD [address] [address] PCP - General 09/25/21 Steven Ch MD [address] [place] [address] 3[address] [place] [address] Special Education Professional Cardiovascular Disease 09/25/21
--- OUTSIDE RECORDS SUMMARY | 2025-07-09 14:28 | XMS_ITS | Clinical Summary ---
Author Organization [facility] Address [address] [place] [address] Phone Care Team Providers Care Medical Transcriptionist Name Role Phone Destiny Trinidad MD Primary Care Provider [phone] Allergies Active Allergy Reactions Criticality Noted Date [...] Active ferrous sulfate 325 mg (65 mg false pass iron) tablet TAKE 1 TABLET BY MOUTH [...] (for a Quick Reference List of common [facility] diagnoses and requirements, click here: TMP) 2019 TMP Consider billing: DX: Morbid Obesity/E66.01 ([facility] 22) DX: Intermittent Afib/I48.0 ([facility] 96) DX: Major Depression/F33.9 ([facility] 59)1 DX: Aortic Ectasia/I77.819 ([facility] 108)2 JDW 12/07 1long term [...] or specific plan for committing suicide [2] [employer]. Diagnostic and Statistical Manual of Mental Disorders, Fifth Edition. [place]: [place]; 2013. 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 [facility] Osteoarthritis 05/19/2006 Overview (12/08/2014): Degenerative joint disease [...] Type Department Care Team Description 04/19/2025 Refill [facility] [address] [place] [address] Adilia Mack CNP Med Change Request 04/10/2025 9:30 AM EDT Office Visit [facility] [address] [place] [address] Destiny Trinidad MD Hypertension, unspecified type (Primary Dx); Hospital discharge follow-up; Morbid obesity from Last 3 Months Immunizations Immunization Administration Dates Next Due COVID-19 (Pre-08/09) Pfizer Vaccine, mRNA, PF 05/21/2022,10/13/2021,01/08/2021,12/18 COVID-19, Unspecified Formulation 10/15/2021 INFLUENZA, SPLIT VIRUS, TRIV ALENT W/ PRESERVATIVE IM 06/24/2012 Influenza Quadrivalent Prese rvative Free IM 06/17/2021,08/07/2014 Influenza Quadrivalent w/ Pr eservative IM 11/16/2023,07/06/2019,08/02/2018,06/29,08/07/2016,07/02/2015 Influenza Recombinant Blank valent Preservative Free IM 07/21/2022 Influenza, Unspecified Formulation 05/25(Deferred: Other - , Ordered By: [id number]) Pneumococcal conjugate PCV13 09/22/2017 Pneumococcal conjugate PCV21 12/05/2024 Pneumococcal polysaccharide PPSV23 09/25,11/24/2012(Deferred: Other - , Ordered By: [id number]) Tdap 12/07/2019, 0,05/25/2013(Defer red: Other - , Ordered By: [id number]),11/24/2012(Deferred: Other - , Ordered By: [id number]) Zoster recombinant 07/22/2022,05/06/2022 Family History Medical History [...] 1 979 - 1986 Smokeless Tobacco: Never Tobacco Cessation:Counseling Given: Not [...] Info) Description 09/18/2025 10:30 AM EST Follow-Up [facility] [address] [place] [address] Destiny Trinidad MD [address] [place] [address] Health Maintenance Due Date Last Done Comments COLOGUARD 2009 FIT TEST 2009 FOBT 2009 SIGMOIDOSCOPY 2009 VIRTUAL COLONOSCOPY 2009 TSH LEVEL 01/02/2023 01/02/2022, 05/19, 09/07/2019, Additional history exists RSV VACCINE (1 - Risk 60-74 years 1-dose series) 2024 INFLUENZA VACCINE (#1) 2025 , 07/21/2022, 06/17/2021, Additional history exists COVID-19 VACCINE (2024- season) 2025 05/21/2022, 05/21/2022, 10/15/2021, Additional history [...] EST) Sodium 139 135 - 146 mEq/L [facility] Potassium 4.4 3.5 - 5.3 mEq/L [facility] Chloride 104 98 - 107 mEq/L [facility] CO2 26 20 - 31 mEq/L [facility] Anion Gap 9 4 - 14 [facility] Glucose 90 70 - 99 mg/dL [facility] BUN 16 6 - 20 mg/dL [facility] Creatinine 0.8(L) 0.9 - 1.3 mg/dL [facility] GFR >100 >60 mL/min/1.7 3m^2 [facility] Calcium 8.8 8.4 - 10.2 mg/dL [facility] Corrected Calcium 9.0 8.4 - 10.2 mg/dL [facility] Protein, Total 7.2 6.2 - 8.2 g/dL [facility] Alkaline Phosphatase 80 0 - 130 U/L [facility] Albumin 3.8 3.4 - 5.2 g/dL [facility] ALT (SGPT) 10 0 - 40 U/L [facility] AST (SGOT) 19 0 - 33 U/L [facility] Bilirubin, Total 0.5 0.3 - 1.2 mg/dL [facility] Blood 12/05/2024 6:53 PM EST 12/05/2024 6:53 PM EST Narrative Resulting Agency Comment No Result [facility] Destiny Trinidad MD LAB BLOOD ORDERABLES Final Re sult Performing Organization Address [facility] Co de Phone Number [facility] [address] [place] [address] * (ABNORMAL) Lipid panel (12/05/2024 6:53 PM EST) Cholesterol 157 <200 mg/dL [facility] Triglycerides 105 <150 mg/dL [facility] Cholesterol, HDL 37(L) >40 mg/dL [facility] LDL Cholesterol, Calculated 99 <129 mg/dL [facility] Cholesterol/HDL Ratio 4.24 <4.96 [facility] Blood 12/05/2024 6:53 PM EST 12/05/2024 6:53 PM EST Narrative Resulting Agency Comment No Result [facility] Destiny Trinidad MD LAB BLOOD ORDERABLES Final Re sult Performing Organization Address City/[facility]/ZIP Co de Phone Number [facility] [address] [place] [address] * HM COLONOSCOPY FOR RESULT ENTRY ONLY (10/29/2022) Historical Provider HEALTH MAINTENANCE Final Result * TSH (01/02/2022 2:19 PM EDT) TSH 3.11 0.35 - 5.50 uIU/mL [facility] Blood 01/02/2022 2:19 PM EDT 01/02/2022 2:19 PM EDT Destiny Trinidad MD LAB BLOOD [place] [address] * Hepatitis C antibody, qualitative (09/07/2019 2:27 PM EST) HepC AB Non Reactive Non Reactive;E quivocal;R eactive [facility] 09/07/2019 2:27 PM EST 09/07/2019 2:27 PM EST Vanita Fernandez NP LAB BLOOD ORDERABLES Edited Resu lt - Final Performing Organization Address [facility] [place] [address] from Last 3 Months or Most Recently Relevant to Health Maintenance Insurance [facility] MEDICARE REPLACEMENT [facility] MEDICARE [place]PL[address] [address] [place] [address] MEDICARE [facility]PLACEMENT [facility] MEDICARE REPLACEMENT [facility] MEDICARE REPLACEMENT [facility] MEDICARE REPLACEMENT [facility] MEDICARE REPLACEMENT [facility] MEDICARE REPLACEMENT [facility] MEDICARE [facility]PLACEMENT [facility] MEDICARE REPLACEMENT [facility] MEDICARE PART A & B Care Teams Medical Transcriptionist Relationship Specialty Start Date End Date Destiny Trinidad MD [address] [place] [address] [email or web address] PCP - General Family Medicine 06/11/20 Additional Source Comments The information contained in this document represents components of the legal health record. It is not the complete legal health record.[facility]
--- OUTSIDE RECORDS SUMMARY | 2025-07-09 14:29 | XMS_ITS | Continuity of Care Document ---
Author Organization [facility] Address [address] [place] [address] Care Team Providers Care Shop Hand Name Role Phone Destiny Trinidad MD Primary Care Provider [phone] Encounters Date Type Department Care Team Description 03/05/2021 Travel 03/05/2021 11:15 AM EDT Office Visit [facility] [address] [place] [phone] Stacey Barber NP Chronic ulcer of right leg, limited to breakdown of skin (Primary Dx) 02/25/2021 Travel 02/25/2021 11:20 AM EDT Office Visit [facility] [address] [place] [phone] Stacey Barber NP Chronic ulcer of right leg, limited to breakdown of skin (Primary Dx) 02/17/2021 Travel 02/17/2021 11:45 AM EDT Office Visit [facility] [address] [place] [phone] Stacey aBrber NP Chronic ulcer of right leg, limited to breakdown of skin (Primary Dx) 02/11/2021 Travel 02/11/2021 12:30 PM EDT Office Visit [facility] [address] [place] [phone] Stacey Barber NP Chronic ulcer of right leg, limited to breakdown of skin (Primary Dx) 02/04/2021 Travel 02/04/2021 10:45 AM EDT Office Visit [facility] [address] [place] [phone] Stacey Barber NP Chronic ulcer of right leg, limited to breakdown of skin (Primary Dx) 01/29/2021 Travel 01/29/2021 9:00 AM EDT Office Visit [facility] [address] [place] [phone] Stacey Barber NP Chronic ulcer of right leg, limited to breakdown of skin (Primary Dx) 01/21/2021 Travel 01/21/2021 1:00 PM EDT Office Visit [facility] [address] [place] [phone] Stacey Barber NP Chronic ulcer of right leg, limited to breakdown of skin (Primary Dx) 01/14/2021 Travel 01/14/2021 1:00 PM EDT Office Visit [facility] [address] [place] [phone] Stacey Barber NP Chronic ulcer of right leg, limited to breakdown of skin (Primary Dx) 01/08/2021 11:15 AM EDT Office Visit [facility] [address] [place] [phone] Stacey Barber NP Chronic ulcer of left leg, limited to breakdown of skin (Primary Dx) 01/03/2021 Travel 01/03/2021 11:00 AM EDT Office Visit [facility] [address] [place] [phone] Shira Meyers NP Ulcer of right lower extremity, unspecified ulcer stage (Primary Dx); Lymphedema; Encounter for change or removal of nonsurgical wound dressing 12/24/2020 Travel 12/24/2020 1:00 PM EST Office Visit [facility] [address] [facility] [address] [place] [address] Stacey Barber NP Chronic ulcer of lower extremity, right, with unspecified severity (Primary Dx) 12/10/2020 Travel 12/10/2020 1:15 PM EST Office Visit [facility] [address] [facility] [address] [place] [address] Stacey Barber NP Ulcer of right lower extremity, unspecified ulcer stage (Primary Dx) 12/05/2020 Travel 12/05/2020 1:00 PM EST Office Visit [facility] [address] [facility] [address] [place] [address] Joshua Hendrix MD Chronic ulcer of lower extremity, right, with unspecified severity (Primary Dx) 11/21/2020 Travel 11/21/2020 1:00 PM EST Office Visit [facility] [address] [facility] [address] [place] [address] Stacey Barber NP Chronic ulcer of lower extremity, right, with unspecified severity (Primary Dx); Venous stasis of lower extremity 11/12/2020 Travel 11/12/2020 1:00 PM EST Office Visit [facility] [address] [facility] [address] [place] [address] Stacey Barber NP Ulcer of right lower extremity, unspecified ulcer stage (Primary Dx) 10/29/2020 Travel 10/29/2020 2:40 PM EST Office Visit [facility] [address] [facility] [address] [place] [address] Shira Meyers NP Ulcer of right lower extremity, unspecified ulcer stage (Primary Dx); Lymphedema 03/04/2020 Telephone [facility] [address] [facility] [address] [place] [address] Shira Meyers NP No Show 03/04/2020 Telephone [facility] [address] [facility] [address] [place] [address] [employer], Shira, MOBILE HEAVY EQUIPMENT OPERATOR Equipment/supplies 01/05/2020 9:20 AM EDT Office Visit [facility] [address] [facility] [address] [place] [address] [address] Onge, Shira, MOBILE HEAVY EQUIPMENT OPERATOR Ulcer of right lower extremity, unspecified ulcer stage (Primary Dx); Lymphedema 12/29/2019 Travel 12/29/2019 9:40 AM EDT Office Visit [facility] [address] [facility] [address] [place] [address] [address] Onge, Shira, MOBILE HEAVY EQUIPMENT OPERATOR Ulcer of right lower extremity, unspecified ulcer stage (Primary Dx); Ulcer of left lower extremity, unspecified ulcer stage 12/22/2019 9:20 AM EST Nurse Visit [facility] [address] [facility] [address] [place] [address] Shashank Shetty LPN Edema, unspecified type (Primary Dx); Encounter for change or removal of nonsurgical wound dressing 12/15/2019 8:40 AM EST Office Visit [facility] [address] [place] [address] [address] [place] [address] [address] Onge, Shira, MOBILE HEAVY EQUIPMENT OPERATOR Ulcer of right lower extremity, unspecified ulcer stage (Primary Dx); Ulcer of left lower extremity, unspecified ulcer stage; Lymphedema of both lower extremities 12/06/2019 9:00 AM EST Office Visit [facility] [address] [address] [address] Onge, Shira, MOBILE HEAVY EQUIPMENT OPERATOR Ulcer of right lower extremity, unspecified ulcer stage (Primary Dx); Ulcer of left lower extremity, unspecified ulcer stage; Lymphedema of both lower extremities 11/29/2019 8:40 AM EST Office Visit [facility] [address] [facility] [address] [place] [address] [address] Onge, Shira, MOBILE HEAVY EQUIPMENT OPERATOR Ulcer of right lower extremity, unspecified ulcer stage (Primary Dx); Ulcer of left lower extremity, unspecified ulcer stage; Lymphedema of both lower extremities 11/22/2019 8:40 AM EST Office Visit [facility] [address] [facility] [address] [place] [address] [address] Onge, Shira, MOBILE HEAVY EQUIPMENT OPERATOR Ulcer of right lower extremity, unspecified ulcer stage (Primary Dx); Ulcer of left lower extremity, unspecified ulcer stage; Lymphedema of both lower extremities 11/15/2019 8:40 AM EST Office Visit [facility] [address] [facility] [address] [place] [address] [address] Onge, Shira, MOBILE HEAVY EQUIPMENT OPERATOR Ulcer of right lower extremity, unspecified ulcer stage (Primary Dx); Ulcer of left lower extremity, unspecified ulcer stage; Lymphedema of both lower extremities 11/08/2019 8:40 AM EST Office Visit [facility] [address] [facility] [address] [place] [address] St Onge, Shira, MOBILE HEAVY EQUIPMENT OPERATOR Ulcer of right lower extremity, unspecified ulcer stage (Primary Dx); Ulcer of left lower extremity, unspecified ulcer stage 11/01/2019 8:00 AM EST Office Visit [facility] [address] [address] [address] Onge, Shira, MOBILE HEAVY EQUIPMENT OPERATOR Ulcer of right lower extremity, unspecified ulcer stage (Primary Dx) 10/27/2019 8:40 AM EST Office Visit [facility] [address] [facility] [address] [place] [address] St Onge, Shira, MOBILE HEAVY EQUIPMENT OPERATOR Ulcer of right lower extremity, unspecified ulcer stage (Primary Dx); Lymphedema of both lower extremities 10/20/2019 2:00 PM EST Nurse Visit [facility] [address] [address] Orville Gandhi LPN Edema, unspecified type (Primary Dx); Encounter for change or removal of nonsurgical wound dressing 10/12/2019 10:00 AM EST Office Visit [facility] [address] [facility] [address] [place] [address] Joshua Hendrix MD Venous stasis of lower extremity (Primary Dx) 10/06/2019 11:00 AM EST Office Visit [facility] [address] [facility] [address] [place] [address] [address] Onge, Shira, MOBILE HEAVY EQUIPMENT OPERATOR Ulcer of right lower extremity, unspecified ulcer stage (Primary Dx) 10/04/2019 Telephone [facility] [address] [facility] [address] [place] [address] Joshua Hendrix MD Post Op (wound care) 09/29/2019 Surgery/Major Procedure [facility] [address] [place] [phone] Joshua Hendrix MD 09/19/2019 2:20 PM EST Office Visit [facility] [address] [place] [address] [address] [place] [address] St Onge, Shira, MOBILE HEAVY EQUIPMENT OPERATOR Ulcer of right lower extremity, unspecified ulcer stage (Primary Dx); Lymphedema of both lower extremities 09/07/2019 Pre-Op FAM PRAC UNSPECIFIED Provider, Unknown 09/05/2019 10:00 AM EST Consult (Initial) [facility] [address] [address] Joshua Hendrix MD Venous stasis of lower extremity (Primary Dx) 08/30/2019 9:20 AM EST Office Visit [facility] [address] [facility] [address] [place] [address] [address] Onge, Shira, MOBILE HEAVY EQUIPMENT OPERATOR Ulcer of right lower extremity, unspecified ulcer stage (Primary Dx); Lymphedema of both lower extremities 08/23/2019 9:20 AM EST Office Visit [facility] [address] [address] St Onge, Shira, MOBILE HEAVY EQUIPMENT OPERATOR Ulcer of right lower extremity, unspecified ulcer stage (Primary Dx); Lymphedema of both lower extremities 08/16/2019 9:20 AM EDT Office Visit [facility] [address] [facility] [address] [place] [address] [address] Onge, Shira, MOBILE HEAVY EQUIPMENT OPERATOR Ulcer of right lower extremity, unspecified ulcer stage (Primary Dx); Lymphedema of both lower extremities 08/09/2019 8:40 AM EDT Office Visit [facility] [address] [facility] [address] [place] [address] [address] Onge, Shira, MOBILE HEAVY EQUIPMENT OPERATOR Ulcer of right lower extremity, unspecified ulcer stage (Primary Dx); Lymphedema of both lower extremities 08/02/2019 9:20 AM EDT Office Visit [facility] [address] [facility] [address] [place] [address] St Onge, Shira, MOBILE HEAVY EQUIPMENT OPERATOR Ulcer of right lower extremity, unspecified ulcer stage (Primary Dx); Lymphedema of both lower extremities 07/25/2019 9:00 AM EDT Office Visit [facility] [address] [facility] [address] [place] [address] Nav Staples MD Varicose veins of left lower extremity with pain (Primary Dx); Venous stasis ulcer of calf with bone involvement without evidence of necrosis with varicose veins, unspecified laterality; Varicose veins of right lower extremity with ulcer of calf with fat layer exposed 07/20/2019 9:00 AM EDT Nurse Visit [facility] [address] [facility] [address] [place] [address] Orville Gandhi LPN Edema, unspecified type (Primary Dx); Encounter for change or removal of nonsurgical wound dressing 07/14/2019 9:20 AM EDT Nurse Visit [facility] [address] [facility] [address] [place] [address] Shashank Shetty LPN Edema, unspecified type (Primary Dx); Encounter for change or removal of nonsurgical wound dressing 07/07/2019 9:40 AM EDT Office Visit [facility] [address] [facility] [address] [place] [address] St Onge, Shira, MOBILE HEAVY EQUIPMENT OPERATOR Ulcer of right lower extremity, unspecified ulcer stage (Primary Dx); Lymphedema of both lower extremities 07/04/2019 9:00 AM EDT Office Visit [facility] [address] [facility] [address] [place] [address] Shira Meyers NP Ulcer of right lower extremity, unspecified ulcer stage (Primary Dx); Lymphedema of both lower extremities 06/27/2019 Telephone [facility] [address] [facility] [address] [place] [address] Shira Meyers NP Discussion With Provider; Wound Care 04/17/2019 9:20 AM EDT Nurse Visit [facility] [address] [facility] [address] [place] [address] Lymphedema (Primary Dx) 04/10/2019 9:20 AM EDT Office Visit [facility] [address] [facility] [address] [place] [address] Nolvia Elkins NP Lymphedema of both lower extremities (Primary Dx); Ulcer of right lower extremity, unspecified ulcer stage 04/05/2019 8:30 AM EDT Office Visit [facility] [address] [facility] [address] [place] [address] Theo Martinez MD Lymphedema of both lower extremities (Primary Dx); Venous ulcer 03/29/2019 9:15 AM EDT Office Visit [facility] [address] [place] [phone] Nav Amato MD Trigger finger, right ring finger (Primary Dx) 03/21/2019 10:45 AM EDT Office Visit [facility] [address] [place] [phone] Renae Turner PA S/P trigger finger release (Primary Dx); Tenosynovitis of finger 11/18/2018 8:00 AM EST Office Visit [facility] [address] [place] [phone] Jeffery Manuel NP Trigger ring finger of left hand (Primary Dx) 11/08/2018 8:00 AM EST Minor Procedure/Test [facility] [address] [place] [phone] Nav Amato MD Trigger ring finger of left hand (Primary Dx) 10/10/2018 9:15 AM EST Office Visit [facility] [address] [place] [phone] eRnae Turner PA S/P trigger finger release (Primary Dx); Visit for suture removal; Trigger finger, left ring finger 09/27/2018 9:00 AM EST Minor Procedure/Test [facility] [address] [place] [phone] Nav Amato MD Trigger finger, right ring finger (Primary Dx) 09/19/2018 3:45 PM EST Consult (Initial) [facility] [address] [place] [phone] Ivan Rueda MD Lumbar facet arthropathy (Primary Dx); Spinal stenosis of lumbar region with neurogenic claudication 08/29/2018 4:00 PM EST Consult (Initial) [facility] [address] [place] [phone] Renae Turner PA Trigger finger, right ring finger (Primary Dx) 08/15/2018 11:00 AM EDT Consult (Initial) [facility] [address] [place] [phone] Savage Jara MD Spinal stenosis of lumbar region with neurogenic claudication (Primary Dx); Facet arthritis of lumbar region (HCC); Foraminal stenosis of lumbar region; Low back pain of over 3 months duration; Lumbosacral stenosis with neurogenic claudication (HCC); BMI 50.0-59.9, adult 06/01/2018 9:40 AM EDT Office Visit [facility] [address] [facility] [address] [place] [address] [address] Onge, Shira, MOBILE HEAVY EQUIPMENT OPERATOR Lymphedema of both lower extremities (Primary Dx); Ulcers of both lower legs, limited to breakdown of skin 05/25/2018 9:40 AM EDT Office Visit [facility] [address] [facility] [address] [place] [address] [address] Onge, Shira, MOBILE HEAVY EQUIPMENT OPERATOR Ulcer of left lower extremity, unspecified ulcer stage (Primary Dx); Lymphedema of both lower extremities 05/18/2018 9:00 AM EDT Nurse Visit [facility] [address] [place] [phone] Shetty, Shashank, BIOLOGICAL INSPECTOR Edema, unspecified type (Primary Dx); Encounter for change or removal of nonsurgical wound dressing 05/11/2018 9:00 AM EDT Office Visit [facility] [address] [place] [address] [address] [place] [address] St Onge, Shira, MOBILE HEAVY EQUIPMENT OPERATOR Lymphedema of both lower extremities (Primary Dx); Ulcers of both lower legs, limited to breakdown of skin 05/04/2018 9:00 AM EDT Nurse Visit [facility] [address] [place] [phone] Gandhi, Orville, BIOLOGICAL INSPECTOR Edema, unspecified type (Primary Dx); Encounter for change or removal of nonsurgical wound dressing 04/27/2018 9:40 AM EDT Nurse Visit [facility] [address] [place] [phone] Shetty, Shashank, BIOLOGICAL INSPECTOR Edema, unspecified type (Primary Dx); Encounter for change or removal of nonsurgical wound dressing 04/13/2018 9:00 AM EDT Office Visit [facility] [address] [place] [phone] St Onge, Shira, MOBILE HEAVY EQUIPMENT OPERATOR Ulcers of both lower legs, limited to breakdown of skin (Primary Dx); Lymphedema of both lower extremities 04/13/2018 11:40 AM EDT Minor Procedure/Test [facility] [address] [place] [address] Roger Johnson DPM Atherosclerosis of tangirnaq artery of both lower extremities, with unspecified presence of clinical manifestation (Primary Dx); Onychomycosis; Pain of toes of both feet 04/06/2018 9:40 AM EDT Office Visit [facility] [address] [address] Shira Meyers, AZRA Lymphedema of both lower extremities (Primary Dx); Ulcers of both lower legs, limited to breakdown of skin 03/30/2018 9:00 AM EDT Nurse Visit [facility] [address] [place] [phone] Shetty, Shashank, BIOLOGICAL INSPECTOR Edema, unspecified type (Primary Dx); Encounter for change or removal of nonsurgical wound dressing 03/23/2018 9:00 AM EDT Nurse Visit [facility] [address] [place] [phone] Shetty, Shashank, BIOLOGICAL INSPECTOR Edema, unspecified type (Primary Dx); Encounter for change or removal of nonsurgical wound dressing 03/16/2018 9:00 AM EDT Nurse Visit [facility] [address] [place] [phone] Shetty, Shashank, BIOLOGICAL INSPECTOR Edema, unspecified type (Primary Dx); Encounter for change or removal of nonsurgical wound dressing 03/02/2018 9:00 AM EDT Nurse Visit [facility] [address] [place] [phone] Gandhi, Orville, BIOLOGICAL INSPECTOR Edema, unspecified type (Primary Dx); Encounter for change or removal of nonsurgical wound dressing 02/23/2018 9:20 AM EDT Nurse Visit [facility] [address] [place] [phone] St Onge, Shira, MOBILE HEAVY EQUIPMENT OPERATOR Ulcers of both lower legs, limited to breakdown of skin (Primary Dx); Lymphedema 02/18/2018 10:20 AM EDT Office Visit [facility] [address] [place] [address] [address] [place] [address] [address] Onge, Shira, MOBILE HEAVY EQUIPMENT OPERATOR Ulcers of both lower legs, limited to breakdown of skin (Primary Dx); Lymphedema 01/19/2018 9:30 AM EDT Nurse Visit [facility] [address] [place] [phone] Gandhi, Orville, BIOLOGICAL INSPECTOR Edema, unspecified type (Primary Dx); Encounter for change or removal of nonsurgical wound dressing 01/12/2018 9:00 AM EDT Office Visit [facility] [address] [place] [phone] St Onge, Shira, MOBILE HEAVY EQUIPMENT OPERATOR Ulcers of both lower legs, limited to breakdown of skin (Primary Dx); Lymphedema of both lower extremities 01/05/2018 9:00 AM EDT Office Visit [facility] [address] [place] [phone] St Onge, Shira, MOBILE HEAVY EQUIPMENT OPERATOR Ulcers of both lower legs, limited to breakdown of skin (Primary Dx); Lymphedema 12/31/2017 11:20 AM EDT Nurse Visit [facility] [address] [place] [phone] Edema, unspecified type (Primary Dx); Encounter for change or removal of nonsurgical wound dressing 12/22/2017 9:00 AM EST Office Visit [facility] [address] [place] [phone] St Onge, Shira, MOBILE HEAVY EQUIPMENT OPERATOR Ulcers of both lower legs, limited to breakdown of skin (Primary Dx); Lymphedema 2017 8:20 AM EST Office Visit [facility] [address] [place] [phone] St Onge, Shira, MOBILE HEAVY EQUIPMENT OPERATOR Ulcers of both lower legs, limited to breakdown of skin (Primary Dx); Lymphedema 12/08/2017 9:00 AM EST Office Visit [facility] [address] [facility] [address] [place] [address] St Onge, Shira, MOBILE HEAVY EQUIPMENT OPERATOR Ulcers of both lower legs, limited to breakdown of skin (Primary Dx); Lymphedema 12/01/2017 9:00 AM EST Nurse Visit [facility] [address] [facility] [address] [place] [address] Larosee, Jolene, BIOLOGICAL INSPECTOR Edema, unspecified type (Primary Dx); Encounter for change or removal of nonsurgical wound dressing 11/24/2017 9:00 AM EST Nurse Visit [facility] [address] [place] [phone] Charly Gandhia, BIOLOGICAL INSPECTOR Edema, unspecified type (Primary Dx); Encounter for change or removal of nonsurgical wound dressing 11/17/2017 9:00 AM EST Nurse Visit [facility] [address] [address] Gandhi, Orville, BIOLOGICAL INSPECTOR Edema, unspecified type (Primary Dx); Encounter for change or removal of nonsurgical wound dressing 11/10/2017 9:00 AM EST Nurse Visit [facility] [address] [address] Gandhi Orville, BIOLOGICAL INSPECTOR Edema, unspecified type (Primary Dx); Encounter for change or removal of nonsurgical wound dressing 11/02/2017 9:00 AM EST Nurse Visit [facility] [address] [address] Dov Gandhiyla, BIOLOGICAL INSPECTOR Edema, unspecified type (Primary Dx); Encounter for change or removal of nonsurgical wound dressing 10/27/2017 10:40 AM EST Office Visit [facility] General Surgery [address] [address] [address] Onge, Shira, MOBILE HEAVY EQUIPMENT OPERATOR Ulcers of both lower legs, limited to breakdown of skin (Primary Dx); Lymphedema 10/22/2017 1:00 PM EST Nurse Visit [facility] Vascular Surgery [address] [facility] [address] [place] [address] Orville Gandhi, BIOLOGICAL INSPECTOR Edema, unspecified type (Primary Dx); Encounter for change or removal of nonsurgical wound dressing 10/19/2017 9:00 AM EST Nurse Visit [facility] Vascular Surgery [address] [facility] [address] [place] [address] VerneJolene, BIOLOGICAL INSPECTOR Edema, unspecified type (Primary Dx); Encounter for change or removal of nonsurgical wound dressing 10/15/2017 9:00 AM EST Nurse Visit [facility] Vascular Surgery [address] [facility] [address] [place] [address] Orville Gandhi, BIOLOGICAL INSPECTOR Edema, unspecified type (Primary Dx); Encounter for change or removal of nonsurgical wound dressing 10/12/2017 9:00 AM EST Nurse Visit [facility] Vascular Surgery [address] [address] Orville Gandhi, BIOLOGICAL INSPECTOR Edema, unspecified type (Primary Dx); Encounter for change or removal of nonsurgical wound dressing 10/07/2017 9:00 AM EST Office Visit [facility] General Surgery [address] [facility] [address] [place] [address] [address] Shira Snow, AZRA Ulcers of both lower legs, limited to breakdown of skin (Primary Dx); Lymphedema 10/05/2017 Telephone [facility] General Vascular Surgery [address] [address] [address] Shira Snow NP Appointment 09/17/2017 8:40 AM EST Office Visit [facility] General Surgery [address] [facility] [address] [place] [address] [address] Shira Snow MOBILE HEAVY EQUIPMENT OPERATOR Ulcer of left lower extremity, unspecified ulcer stage (Primary Dx); Ulcer of right lower extremity, unspecified ulcer stage; Lymphedema 09/08/2017 9:40 AM EST Nurse Visit [facility] Vascular Surgery [address] [facility] [address] [place] [address] Orville Gandhi LPN Edema, unspecified type (Primary Dx); Encounter for change or removal of nonsurgical wound dressing 09/03/2017 1:20 PM EST Office Visit [facility] General Surgery [address] [facility] [address] [place] [address] Shira Meyers NP Ulcers of both lower legs, limited to breakdown of skin (Primary Dx); Lymphedema 06/28/2017 9:00 AM EDT Office Visit [facility] General Surgery [address] [facility] [address] [place] [address] Shira Meyers NP Ulcer of lower extremity, left, with unspecified severity (Primary Dx); Ulcer of lower extremity, right, with unspecified severity; Lymphedema 06/15/2017 Telephone [facility] Vascular Surgery [address] [facility] [address] [place] [address] Shira Meyers NP Wound Care; Equipment/supplies 06/14/2017 9:00 AM EDT Nurse Visit [facility] Vascular Surgery [address] [facility] [address] [place] [address] Jolene Castellano LPN Edema, unspecified type (Primary Dx); Encounter for change or removal of nonsurgical wound dressing 06/11/2017 9:00 AM EDT Nurse Visit [facility] Vascular Surgery [address] [facility] [address] [place] [address] Edema, unspecified type (Primary Dx); Encounter for change or removal of nonsurgical wound dressing 06/09/2017 10:00 AM EDT Nurse Visit [facility] Vascular Surgery [address] [facility] [address] [place] [address] Edema, unspecified type (Primary Dx); Encounter for change or removal of nonsurgical wound dressing 06/07/2017 9:00 AM EDT Nurse Visit [facility] Vascular Surgery [address] [facility] [address] [place] [address] Larosee, Jolene, BIOLOGICAL INSPECTOR Edema, unspecified type (Primary Dx); Encounter for change or removal of nonsurgical wound dressing 06/02/2017 8:40 AM EDT Office Visit [facility] General Surgery [address] [place] [address] [address] Onge, Shira, MOBILE HEAVY EQUIPMENT OPERATOR Ulcers of both lower legs, limited to breakdown of skin (Primary Dx); Lymphedema; Chronic venous insufficiency 05/12/2017 9:20 AM EDT Office Visit [facility] General Surgery [address] [place] [address] St Onge, Shira, MOBILE HEAVY EQUIPMENT OPERATOR Ulcer of lower extremity, left, with unspecified severity (Primary Dx); Ulcer of lower extremity, right, with unspecified severity; Venous stasis of lower extremity; Lymphedema 05/05/2017 9:20 AM EDT Office Visit [facility] General Surgery [address] [place] [address] [address] Onge, Shira, MOBILE HEAVY EQUIPMENT OPERATOR Ulcers of both lower legs, limited to breakdown of skin (Primary Dx); Lymphedema 04/28/2017 9:20 AM EDT Office Visit [facility] General Surgery [address] [place] [address] [address] Onge, Shira, MOBILE HEAVY EQUIPMENT OPERATOR Lymphedema (Primary Dx); Ulcers of both lower legs, limited to breakdown of skin 04/22/2017 8:40 AM EDT Office Visit [facility] General Surgery [address] [place] [address] [address] Onge, Shira, MOBILE HEAVY EQUIPMENT OPERATOR Lymphedema (Primary Dx); Ulcer of lower extremity, left, with unspecified severity; Ulcer of lower extremity, right, with unspecified severity 04/14/2017 9:20 AM EDT Office Visit [facility] General Surgery [address] [place] [address] [address] Onge, Shira, MOBILE HEAVY EQUIPMENT OPERATOR Lymphedema (Primary Dx); Ulcers of both lower legs, limited to breakdown of skin; Venous stasis of lower extremity 04/07/2017 9:20 AM EDT Office Visit [facility] General Surgery [address] [facility] [address] [place] [address] [address] Onge, Shira, MOBILE HEAVY EQUIPMENT OPERATOR Lymphedema (Primary Dx); Ulcer of lower extremity, left, with unspecified severity; Ulcer of lower extremity, right, with unspecified severity 03/31/2017 8:00 AM EDT Office Visit [facility] General Surgery [address] [facility] [address] [place] [address] [address] Onge, Shira, MOBILE HEAVY EQUIPMENT OPERATOR Lymphedema (Primary Dx); Ulcers of both lower legs, limited to breakdown of skin; Morbid obesity due to excess calories 03/30/2017 Telephone [facility] General Surgery [address] [facility] [address] [place] [address] [address] Onge, Shira, MOBILE HEAVY EQUIPMENT OPERATOR Unna Boot Application 03/19/2017 Telephone [facility] General Surgery [address] [facility] [address] [place] [address] [address] Onge, Shira, MOBILE HEAVY EQUIPMENT OPERATOR No Show 02/23/2017 Telephone [facility] General Surgery [address] [facility] [address] [place] [address] [address] Onge, Shira, MOBILE HEAVY EQUIPMENT OPERATOR Unna Boot Application 02/20/2017 Office Visit NON FC SA NON FC UNK [facility], Unknown Provider 02/18/2017 Consult (Initial) NON FC [facility] [address] [place] [address] Juanjose Watson MD 02/17/2017 [facility] NON FC [facility] [address] [place] [address] Tamika Lomax MD 02/17/2017 8:00 AM EDT Office Visit [facility] General Surgery [address] [facility] [address] [place] [address] [address] Onge, Shira, MOBILE HEAVY EQUIPMENT OPERATOR Cellulitis of right lower extremity (Primary Dx) 02/16/2017 Telephone [facility] General Vascular Surgery [address] [facility] 210 [place] [address] [address] Onge, Shira, MOBILE HEAVY EQUIPMENT OPERATOR Appointment (tomorrow); Unna Boot Application 02/08/2017 10:20 AM EDT Office Visit [facility] General Surgery [address] [place] [address] St Onge, Shira, MOBILE HEAVY EQUIPMENT OPERATOR Lymphedema (Primary Dx); Ulcer of lower extremity, left, with unspecified severity 02/01/2017 8:20 AM EDT Office Visit [facility] General Surgery [address] [place] [address] St Onge, Shira, MOBILE HEAVY EQUIPMENT OPERATOR Lymphedema (Primary Dx); Ulcer of lower extremity, left, with unspecified severity; Venous stasis of lower extremity 01/28/2017 8:20 AM EDT Office Visit [facility] General Surgery [address] [place] [address] [address] Onge, Shira, MOBILE HEAVY EQUIPMENT OPERATOR Lymphedema (Primary Dx); Ulcer of lower extremity, left, with unspecified severity 01/25/2017 1:20 PM EDT Office Visit [facility] General Surgery [address] [place] [address] [address] Onge, Shira, MOBILE HEAVY EQUIPMENT OPERATOR Lymphedema (Primary Dx); Ulcer of lower extremity, left, with unspecified severity; Ulcer of lower extremity, right, with unspecified severity 01/21/2017 2:30 PM EDT Nurse Visit [facility] Vascular Surgery [address] [place] [address] Stinehart, Anabel, BIOLOGICAL INSPECTOR Ulcers of both lower legs (Primary Dx); Edema, unspecified type; Encounter for change or removal of nonsurgical wound dressing 01/18/2017 8:20 AM EDT Office Visit [facility] General Surgery [address] [place] [address] St Onge, Shira, MOBILE HEAVY EQUIPMENT OPERATOR Lymphedema (Primary Dx); Ulcer of lower extremity, left, with unspecified severity; Ulcer of lower extremity, right, with unspecified severity 01/14/2017 8:20 AM EDT Office Visit [facility] General Surgery [address] [place], [place] [address], [place] [address] St Onge, Shira, MOBILE HEAVY EQUIPMENT OPERATOR Lymphedema (Primary Dx); Ulcer of lower extremity, left, with unspecified severity; Ulcer of lower extremity, right, with unspecified severity; Venous stasis of lower extremity 01/11/2017 11:00 AM EDT Nurse Visit [facility] Vascular Surgery [address] [place] [address] [address] [place] [address] Stinehart, Anabel, BIOLOGICAL INSPECTOR Edema, unspecified type (Primary Dx); Encounter for change or removal of nonsurgical wound dressing 01/06/2017 9:00 AM EDT Office Visit [facility] General Surgery [address] [place] [address] [address] Onge, Shira, MOBILE HEAVY EQUIPMENT OPERATOR Lymphedema (Primary Dx); Ulcer of lower extremity, left, with unspecified severity; Ulcer of lower extremity, right, with unspecified severity 12/30/2016 9:00 AM EDT Office Visit [facility] General Surgery [address] [place] [address] [address] Onge, Shira, MOBILE HEAVY EQUIPMENT OPERATOR Lymphedema (Primary Dx); Ulcer of lower extremity, left, with unspecified severity; Ulcer of lower extremity, right, with unspecified severity 12/23/2016 9:00 AM EST Office Visit [facility] General Surgery [address] [place] [address] [address] Onge, Shira, MOBILE HEAVY EQUIPMENT OPERATOR Lymphedema (Primary Dx); Ulcer of lower extremity, left, with unspecified severity; Ulcer of lower extremity, right, with unspecified severity 12/16/2016 1:20 PM EST Office Visit [facility] General Surgery [address] [place] [address] [address] Onge, Shira, MOBILE HEAVY EQUIPMENT OPERATOR Ulcer of lower extremity, right, with unspecified severity (Primary Dx); Lymphedema; Ulcer of lower extremity, left, with unspecified severity 12/09/2016 9:00 AM EST Office Visit [facility] General Surgery [address] [place] [address] St Onge, Shira, MOBILE HEAVY EQUIPMENT OPERATOR Ulcer of lower extremity, right, with unspecified severity (Primary Dx); Lymphedema; Ulcer of lower extremity, left, with unspecified severity 12/02/2016 10:00 AM EST Office Visit [facility] General Surgery [address] [place] [address] St Onge, Shira, MOBILE HEAVY EQUIPMENT OPERATOR Ulcer of lower extremity, right, with unspecified severity (Primary Dx); Lymphedema; Ulcer of lower extremity, left, with unspecified severity 11/25/2016 11:00 AM EST Office Visit [facility] General Surgery [address] [place] [address] St Onge, Shira, MOBILE HEAVY EQUIPMENT OPERATOR Lymphedema (Primary Dx); Ulcer of lower extremity, left, with unspecified severity [L97.929]; Ulcer of lower extremity, right, with unspecified severity [L97.919] 11/25/2016 8:00 AM EST Minor Procedure/Test [facility] [address] [place] [phone] Roger Johnson, LANCE Onychomycosis (Primary Dx); Pain in toes of both feet [M79.674, M79.675] 11/19/2016 8:20 AM EST Office Visit [facility] General Surgery [address] [place] [address] St Onge, Shira, MOBILE HEAVY EQUIPMENT OPERATOR Lymphedema (Primary Dx); Ulcer of lower extremity, left, with unspecified severity [L97.929]; Ulcer of lower extremity, right, with unspecified severity [L97.919]; Venous stasis of lower extremity 11/11/2016 9:00 AM EST Office Visit [facility] General Surgery [address] [place] [address] [address] Onge, Shira, MOBILE HEAVY EQUIPMENT OPERATOR Lymphedema (Primary Dx); Ulcer of lower extremity, left, with unspecified severity [L97.929]; Ulcer of lower extremity, right, with unspecified severity [L97.919] 11/04/2016 9:00 AM EST Office Visit [facility] General Surgery [address] [facility] [address] [place] [address] [address] Onge, Shira, MOBILE HEAVY EQUIPMENT OPERATOR Lymphedema (Primary Dx); Ulcer of lower extremity, left, with unspecified severity [L97.929]; Ulcer of lower extremity, right, with unspecified severity [L97.919] 10/28/2016 9:20 AM EST Office Visit [facility] General Surgery [address] [facility] [address] [place] [address] [address] Onge, Shira, MOBILE HEAVY EQUIPMENT OPERATOR Lymphedema (Primary Dx); Ulcer of lower extremity, left, with unspecified severity [L97.929]; Ulcer of lower extremity, right, with unspecified severity [L97.919]; Chronic venous insufficiency 10/21/2016 10:40 AM EST Office Visit [facility] General Surgery [address] [place] [address] [address] [place] [address] [address] Onge, Shira, MOBILE HEAVY EQUIPMENT OPERATOR Ulcer of lower extremity, left, with unspecified severity [L97.929] (Primary Dx); Ulcer of lower extremity, right, with unspecified severity [L97.919]; Venous stasis of lower extremity 10/14/2016 8:20 AM EST Office Visit [facility] General Vascular Surgery [address] [place] [address] [address] [place] [address] [address] Onge, Shira, MOBILE HEAVY EQUIPMENT OPERATOR Lymphedema (Primary Dx); Ulcer of lower extremity, left, with unspecified severity [L97.929]; Ulcer of lower extremity, right, with unspecified severity [L97.919] 10/07/2016 9:00 AM EST Office Visit [facility] General Vascular Surgery [address] [place] [address] St Onge, Shira, MOBILE HEAVY EQUIPMENT OPERATOR Ulcer of lower extremity, left, with unspecified severity [L97.929] (Primary Dx); Ulcer of lower extremity, right, with unspecified severity [L97.919]; Venous stasis of lower extremity 09/30/2016 9:15 AM EST Nurse Visit [facility] General Vascular Surgery [address] [facility] [address] [place] [address] Stinehart, Anabel, BIOLOGICAL INSPECTOR Ulcers of both lower legs (Primary Dx); Edema, unspecified type [R60.9]; Encounter for change or removal of nonsurgical wound dressing 09/06/2016 [facility] [address] [place] [address] Jennifer Gibbons MD 09/02/2016 8:40 AM EST Office Visit [facility] General Vascular Surgery [address] [facility] [address] [place] [address] [address] Onge, Shira, MOBILE HEAVY EQUIPMENT OPERATOR Lymphedema (Primary Dx); Leg ulcer, left, with unspecified severity; Ulcer of lower extremity, right, with unspecified severity [L97.919] 08/27/2016 8:20 AM EST Office Visit [facility] General Vascular Surgery [address] [facility] [address] [place] [address] [address] Onge, Shira, MOBILE HEAVY EQUIPMENT OPERATOR Lymphedema (Primary Dx); Ulcer of lower extremity, left, with unspecified severity [L97.929]; Ulcer of lower extremity, right, with unspecified severity [L97.919] 08/19/2016 Telephone [facility] General Vascular Surgery [address] [facility] [address] [place] [address] [address] Onge, Shira, MOBILE HEAVY EQUIPMENT OPERATOR 08/19/2016 8:40 AM EDT Office Visit [facility] General Vascular Surgery [address] [facility] [address] [place] [address] [address] Onge, Shira, MOBILE HEAVY EQUIPMENT OPERATOR Lymphedema (Primary Dx); Ulcer of lower extremity, left, with unspecified severity [L97.929]; Ulcer of lower extremity, right, with unspecified severity [L97.919] 08/05/2016 9:15 AM EDT Nurse Visit [facility] General Vascular Surgery [address] [facility] [address] [place] [address] Stinehart, Anabel, BIOLOGICAL INSPECTOR Bilateral leg ulcer, with unspecified severity (Primary Dx); Edema, unspecified type [R60.9]; Encounter for change or removal of nonsurgical wound dressing 07/29/2016 8:40 AM EDT Office Visit [facility] General Vascular Surgery [address] [facility] [address] [place] [address] St Ally SnowAZRA neely Ulcer of lower extremity, left, with unspecified severity [L97.929] (Primary Dx); Ulcer of lower extremity, right, with unspecified severity [L97.919]; Lymphedema 07/15/2016 9:00 AM EDT Nurse Visit [facility] General Vascular Surgery [address] [facility] [address] [place] [address] Stinehart, Anabel, BIOLOGICAL INSPECTOR Edema, unspecified type [R60.9] (Primary Dx); Encounter for change or removal of nonsurgical wound dressing; Bilateral leg ulcer, with unspecified severity 07/08/2016 9:00 AM EDT Nurse Visit [facility] General Vascular Surgery [address] [place] [address] [address] [place] [address] Stinehart, Anabel, BIOLOGICAL INSPECTOR Edema, unspecified type [R60.9] (Primary Dx); Encounter for change or removal of nonsurgical wound dressing 07/01/2016 9:00 AM EDT Nurse Visit [facility] General Vascular Surgery [address] [place] [address] [address] [place] [address] Stinehart, Anabel, BIOLOGICAL INSPECTOR Edema, unspecified type [R60.9] (Primary Dx); Encounter for change or removal of nonsurgical wound dressing; Bilateral leg ulcer, with unspecified severity 06/24/2016 9:00 AM EDT Nurse Visit [facility] General Vascular Surgery [address] [facility] [address] [place] [address] DetroitEssie, WELDER APPRENTICE GAS Edema, unspecified type [R60.9] (Primary Dx); Encounter for change or removal of nonsurgical wound dressing; Ulcer of calf, unspecified laterality, with unspecified severity (HCC) [L97.209] 06/17/2016 9:20 AM EDT Office Visit [facility] General Vascular Surgery [address] [facility] [address] [place] [address] [address] OngeShira MOBILE HEAVY EQUIPMENT OPERATOR Ulcer of lower extremity, left, with unspecified severity (HCC) [L97.929] (Primary Dx); Ulcer of lower extremity, right, with unspecified severity (HCC) [L97.919]; Chronic venous insufficiency 06/10/2016 9:00 AM EDT Nurse Visit [facility] General Vascular Surgery [address] [facility] [address] [place] [address] Stinehart, Anabel, BIOLOGICAL INSPECTOR Ulcers of both lower extremities (Primary Dx); Edema, unspecified type [R60.9]; Encounter for change or removal of nonsurgical wound dressing 06/03/2016 9:00 AM EDT Nurse Visit [facility] General Vascular Surgery [address] [facility] [address] [place] [address] Stinehart, Anabel, BIOLOGICAL INSPECTOR Edema, unspecified type [R60.9] (Primary Dx); Encounter for change or removal of nonsurgical wound dressing; Ulcer of lower extremity, unspecified laterality, with unspecified severity 05/27/2016 9:00 AM EDT Nurse Visit [facility] General Vascular Surgery [address] [place] [address] [address] [place] [address] Stinehart, Anabel, BIOLOGICAL INSPECTOR Edema, unspecified type [R60.9] (Primary Dx); Encounter for change or removal of nonsurgical wound dressing; Ulcers of both lower extremities 05/20/2016 10:20 AM EDT Office Visit [facility] General Vascular Surgery [address] [facility] [address] [place] [address] [address] Shira Snow, MOBILE HEAVY EQUIPMENT OPERATOR Ulcer of lower extremity, left, with unspecified severity (HCC) [L97.929] (Primary Dx); Ulcer of lower extremity, right, with unspecified severity (HCC) [L97.919]; Edema, unspecified type [R60.9]; Venous stasis of lower extremity 05/06/2016 8:40 AM EDT Nurse Visit [facility] General Vascular Surgery [address] [address] [address] Onge, Shira, MOBILE HEAVY EQUIPMENT OPERATOR Ulcer of lower extremity, left, with unspecified severity (HCC) [L97.929] (Primary Dx); Ulcer of lower extremity, right, with unspecified severity (HCC) [L97.919]; Venous stasis of lower extremity 04/29/2016 8:30 AM EDT Nurse Visit [facility] General Vascular Surgery [address] [place] [address] Stinehart, Anabel, BIOLOGICAL INSPECTOR Ulcers of both lower extremities (Primary Dx); Edema, unspecified type [R60.9]; Encounter for change or removal of nonsurgical wound dressing 04/22/2016 9:00 AM EDT Nurse Visit [facility] General Vascular Surgery [address] [place] [phone] Stinehart, Anabel, BIOLOGICAL INSPECTOR Edema, unspecified type [R60.9] (Primary Dx); Encounter for change or removal of nonsurgical wound dressing 04/15/2016 9:00 AM EDT Office Visit [facility] General Vascular Surgery [address] [place] [address] St Onge, Shira, MOBILE HEAVY EQUIPMENT OPERATOR Ulcer of lower extremity, left, with unspecified severity (HCC) [L97.929] (Primary Dx); Venous stasis of lower extremity 04/09/2016 2:30 PM EDT Nurse Visit [facility] General Vascular Surgery [address] [place] [address] Stinehart, Anabel, BIOLOGICAL INSPECTOR Edema, unspecified type [R60.9] (Primary Dx); Encounter for change or removal of nonsurgical wound dressing 04/02/2016 9:15 AM EDT Nurse Visit [facility] General Vascular Surgery [address] [place] [address] Stinehart, Anabel, BIOLOGICAL INSPECTOR Bilateral leg ulcer, with unspecified severity (Primary Dx); Edema, unspecified type [R60.9]; Encounter for change or removal of nonsurgical wound dressing 03/18/2016 8:30 AM EDT Nurse Visit [facility] General Vascular Surgery [address] [facility] [address] [place] [address] Anabel Springer LPN Edema, unspecified type [R60.9] (Primary Dx); Encounter for change or removal of nonsurgical wound dressing 03/12/2016 Telephone [facility] General Vascular Surgery [address] [place] [address] [address] [place] [address] Tamika Lomax MD Results 03/12/2016 2:00 PM EDT Office Visit [facility] General Vascular Surgery [address] [place] [address] [address] [place] [address] Tamika Lomax MD Bilateral leg ulcer, limited to breakdown of skin (Primary Dx); Presence of IVC filter 03/11/2016 8:20 AM EDT Office Visit [facility] General Vascular Surgery [address] [place] [address] [address] [place] [address] [address] Onge, Shira, MOBILE HEAVY EQUIPMENT OPERATOR Lymphedema (Primary Dx); Ulcer of lower extremity, left, with unspecified severity (HCC) [L97.929]; Ulcer of lower extremity, right, with unspecified severity (HCC) [L97.919] 03/05/2016 8:20 AM EDT Office Visit [facility] General Vascular Surgery [address] [place] [address] [address] [place] [address] [address] Onge, Shira, MOBILE HEAVY EQUIPMENT OPERATOR Lymphedema (Primary Dx); Ulcer of lower extremity, left, with unspecified severity (HCC) [L97.929]; Ulcer of lower extremity, right, with unspecified severity (HCC) [L97.919] 02/26/2016 3:00 PM EDT Office Visit [facility] General Vascular Surgery [address] [place] [address] St Onge, Shira, MOBILE HEAVY EQUIPMENT OPERATOR Ulcer of lower extremity, left, with unspecified severity (HCC) [L97.929] (Primary Dx); Ulcer of lower extremity, right, with unspecified severity (HCC) [L97.919]; Lymphedema 02/13/2016 2:15 PM EDT Office Visit [facility] General Vascular Surgery [address] [place] [address] Tamika Lomax MD Venous stasis dermatitis of both lower extremities (Primary Dx) 02/06/2016 Telephone [facility] [address] [place] [address] Roger Johnson DPM FYAric 01/15/2016 8:20 AM EDT Office Visit [facility] General Vascular Surgery [address] [place] [address] St OnShira meyer, MOBILE HEAVY EQUIPMENT OPERATOR Lymphedema (Primary Dx); Ulcer of lower extremity, left, with unspecified severity (HCC) [L97.929] 01/09/2016 8:20 AM EDT Office Visit [facility] General Vascular Surgery [address] [place] [address] [address] OnShira meyer, MOBILE HEAVY EQUIPMENT OPERATOR Ulcer of lower extremity, left, with unspecified severity (HCC) [L97.929] (Primary Dx); Ulcer of lower extremity, right, with unspecified severity (HCC) [L97.919]; Lymphedema; Chronic venous insufficiency 2015 8:30 AM EST Nurse Visit [facility] General Vascular Surgery [address] [place] [address] Anabel Springer LPN Ulcer of lower extremity, unspecified laterality, with unspecified severity (Primary Dx); Edema, unspecified type [R60.9]; Encounter for change or removal of nonsurgical wound dressing 12/10/2015 8:00 AM EST Office Visit [facility] General Vascular Surgery [address] [place] [address] St OnShira meyer, MOBILE HEAVY EQUIPMENT OPERATOR Lymphedema (Primary Dx); Ulcer of lower extremity, left, with unspecified severity (HCC) [L97.929]; Venous stasis of lower extremity 11/04/2015 10:00 AM EST Nurse Visit [facility] General Vascular Surgery [address] [facility] [address] [place] [address] Alvina Springera, BIOLOGICAL INSPECTOR Edema, unspecified type [R60.9] (Primary Dx); Encounter for change or removal of nonsurgical wound dressing 11/01/2015 9:15 AM EST Nurse Visit [facility] General Vascular Surgery [address] [facility] [address] [place] [address] Rianat Anabel, BIOLOGICAL INSPECTOR Encounter for change or removal of nonsurgical wound dressing (Primary Dx); Ulcer of lower extremity, unspecified laterality, with unspecified severity 10/31/2015 11:20 AM EST Office Visit [facility] [address] [place] [id number] Roger Johnson DPM Atherosclerosis of tangirnaq artery of both lower extremities, with unspecified presence of clinical manifestation (HCC) [I70.203] (Primary Dx); Onychomycosis; Pain of toes of both feet 10/28/2015 9:15 AM EST Nurse Visit [facility] General Vascular Surgery [address] [facility] [address] [place] [address] Alvina Springera, BIOLOGICAL INSPECTOR Ulcer of lower extremity, unspecified laterality, with unspecified severity (Primary Dx); Encounter for change or removal of nonsurgical wound dressing 10/24/2015 9:00 AM EST Office Visit [facility] General Vascular Surgery [address] [facility] [address] [place] [address] St Shira Snow NP Ulcer of lower extremity, right, with unspecified severity (HCC) [L97.919] (Primary Dx); Chronic venous insufficiency; Venous stasis of lower extremity; Morbid obesity, unspecified obesity type (HCC) [E66.01]; Ulcer of lower extremity, left, with unspecified severity (HCC) [L97.929] 10/14/2015 8:30 AM EST Nurse Visit [facility] General Vascular Surgery [address] [facility] [address] [place] [address] Stinehart, Anabel, BIOLOGICAL INSPECTOR Leg ulcer, unspecified laterality, with unspecified severity (Primary Dx); Generalized edema [R60.1]; Encounter for change or removal of nonsurgical wound dressing 10/03/2015 8:45 AM EST Nurse Visit [facility] General Vascular Surgery [address] [facility] [address] [place] [address] Stinehart, Anabel, BIOLOGICAL INSPECTOR Non-pressure ulcer of lower extremity, unspecified laterality, with unspecified severity (Primary Dx); Generalized edema [R60.1]; Encounter for change or removal of nonsurgical wound dressing 09/26/2015 8:20 AM EST Office Visit [facility] General Vascular Surgery [address] [facility] [address] [place] [address] St Shira Snow, MOBILE HEAVY EQUIPMENT OPERATOR Ulcer of lower extremity, left, with unspecified severity (HCC) [L97.929] (Primary Dx); Ulcer of lower extremity, right, with unspecified severity (HCC) [L97.919]; Edema, due to unspecified malnutrition type, unspecified edema; Morbid obesity, unspecified obesity type (HCC) [E66.01] 09/19/2015 8:30 AM EST Nurse Visit [facility] General Vascular Surgery [address] [facility] [address] [place] [address] Stinehart, Anabel, BIOLOGICAL INSPECTOR Ulcer of lower extremity, unspecified laterality, with unspecified severity (Primary Dx); Generalized edema [R60.1]; Encounter for change or removal of nonsurgical wound dressing 09/06/2015 9:45 AM EST Nurse Visit [facility] General Vascular Surgery [address] [facility] [address] [place] [address] Stinehart, Anabel, BIOLOGICAL INSPECTOR Ulcers of both lower extremities (Primary Dx); Edema, unspecified edema [R60.9]; Encounter for change or removal of nonsurgical wound dressing 08/29/2015 8:20 AM EST Office Visit [facility] General Vascular Surgery [address] [facility] [address] [place] [address] [address] Onge, Shira, MOBILE HEAVY EQUIPMENT OPERATOR Ulcer of lower extremity, left, with unspecified severity (HCC) [L97.929] (Primary Dx); Ulcer of lower extremity, right, with unspecified severity (HCC) [L97.919]; Venous stasis of lower extremity; Morbid obesity, unspecified obesity type (HCC) [E66.01] 08/22/2015 8:30 AM EST Nurse Visit [facility] General Vascular Surgery [address] [facility] [address] [place] [address] Stinehart, Anabel, BIOLOGICAL INSPECTOR Edema, unspecified edema [R60.9] (Primary Dx); Encounter for change or removal of nonsurgical wound dressing 08/15/2015 8:30 AM EDT Nurse Visit [facility] General Vascular Surgery [address] [place] [address] [address] [place] [address] Stinehart, Anabel, BIOLOGICAL INSPECTOR Generalized edema [R60.1] (Primary Dx); Encounter for change or removal of nonsurgical wound dressing 08/08/2015 8:45 AM EDT Nurse Visit [facility] General Vascular Surgery [address] [place] [address] [address] [place] [address] Stinehart, Anabel, BIOLOGICAL INSPECTOR 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); Varicose veins of left lower extremity with inflammation; Edema, unspecified edema [R60.9]; Encounter for change or removal of nonsurgical wound dressing 08/01/2015 8:20 AM EDT Office Visit [facility] General Vascular Surgery [address] [facility] [address] [place] [address] St Shira Snow NP Venous stasis dermatitis of both lower extremities [I83.11, I83.12] (Primary Dx); Morbid obesity, unspecified obesity type (HCC) [E66.01]; Ulcer of lower extremity, right, with unspecified severity (HCC) [L97.919]; Venous stasis of lower extremity 07/26/2015 10:30 AM EDT Nurse Visit [facility] General Vascular Surgery [address] [place] [address] [address] [place] [address] Stinehart, Anabel, BIOLOGICAL INSPECTOR Edema, unspecified edema [R60.9] (Primary Dx); Encounter for change or removal of nonsurgical wound dressing 07/08/2015 11:00 AM EDT Nurse Visit [facility] General Vascular Surgery [address] [facility] [address] [place] [address] Stinehart, Anabel, BIOLOGICAL INSPECTOR Ulcers of both lower extremities (Primary Dx); Generalized edema [782.3]; Encounter for change or removal of nonsurgical wound dressing 07/08/2015 Telephone [facility] Urology [address] [facility] [address] [place] [address] Shira Meyers NP Unna Boot Application 06/28/2015 2:45 PM EDT Nurse Visit [facility] General Vascular Surgery [address] [facility] [address] [place] [address] Stinehart, Anabel, BIOLOGICAL INSPECTOR Ulcers of both lower extremities (Primary Dx); Encounter for change or removal of nonsurgical wound dressing 06/21/2015 10:00 AM EDT Nurse Visit [facility] General Vascular Surgery [address] [facility] [address] [place] [address] Stinehart, Anabel, BIOLOGICAL INSPECTOR Ulcer of lower extremity, unspecified laterality, with unspecified severity (Primary Dx); Edema; Encounter for change or removal of nonsurgical wound dressing 06/11/2015 9:45 AM EDT Nurse Visit [facility] General Vascular Surgery [address] [facility] [address] [place] [address] Richardson, Angela, BIOLOGICAL INSPECTOR Edema (Primary Dx); Encounter for change or removal of nonsurgical wound dressing; Ulcer of calf, unspecified laterality, with unspecified severity (HCC) [707.12] 06/05/2015 9:15 AM EDT Nurse Visit [facility] General Vascular Surgery [address] [facility] [address] [place] [address] Richardson, Angela, BIOLOGICAL INSPECTOR Edema (Primary Dx); Encounter for change or removal of nonsurgical wound dressing; Ulcer of calf, unspecified laterality, with unspecified severity (HCC) [707.12] 05/30/2015 10:20 AM EDT Office Visit [facility] General Vascular Surgery [address] [facility] [address] [place] [address] [address] Shira Snow, MOBILE HEAVY EQUIPMENT OPERATOR Morbid obesity (Primary Dx); Ulcer of lower extremity, right, with unspecified severity (HCC) [707.10]; Ulcer of lower extremity, left, with unspecified severity (HCC) [707.10]; Chronic venous insufficiency; Venous stasis of lower extremity 03/15/2015 8:40 AM EDT Office Visit [facility] General Vascular Surgery [address] [facility] [address] [place] [address] [address] Shira Snow NP Edema (Primary Dx); Ulcers of both lower legs 03/08/2015 9:00 AM EDT Nurse Visit [facility] General Vascular Surgery [address] [facility] [address] [place] [address] Angela Aviles LPN Edema (Primary Dx); Encounter for change or removal of nonsurgical wound dressing; Ulcer of calf, unspecified laterality, with unspecified severity (HCC) [707.12]; Ulcer of ankle, unspecified laterality, with unspecified severity (HCC) [707.13] 03/04/2015 8:45 AM EDT Nurse Visit [facility] General Vascular Surgery [address] [facility] [address] [place] [address] Angela Aviles LPN Edema (Primary Dx); Encounter for change or removal of nonsurgical wound dressing 02/22/2015 9:00 AM EDT Nurse Visit [facility] General Vascular Surgery [address] [facility] [address] [place] [address] Angela Aviles LPN Edema (Primary Dx); Encounter for change or removal of nonsurgical wound dressing 02/15/2015 8:40 AM EDT Office Visit [facility] General Vascular Surgery [address] [facility] [address] [place] [address] St Shira Snow NP Edema (Primary Dx); Ulcer of lower extremity, right, with unspecified severity (HCC) [707.10]; Venous stasis of lower extremity 02/05/2015 2:00 PM EDT Nurse Visit [facility] General Vascular Surgery [address] [facility] [address] [place] [address] Beba Parker, BIOLOGICAL INSPECTOR Ulcer of lower limb (Primary Dx); Edema; Encounter for change or removal of nonsurgical wound dressing 02/05/2015 Telephone [facility] General Vascular Surgery [address] [facility] [address] [place] [address] Shira Meyers NP Edema 12/28/2014 8:20 AM EDT Office Visit [facility] General Vascular Surgery [address] [facility] [address] [place] [address] Shira Meyers NP Edema (Primary Dx); Ulcer of lower extremity; Venous stasis of lower extremity 12/21/2014 9:15 AM EST Nurse Visit [facility] General Vascular Surgery [address] [facility] [address] [place] [address] Essie Fuller LVN LPN Edema (Primary Dx); Encounter for change or removal of nonsurgical wound dressing; Ulcer of calf 12/14/2014 8:30 AM EST Nurse Visit [facility] General Vascular Surgery [address] [facility] [address] [place] [address] Poncho Parkera, BIOLOGICAL INSPECTOR Edema (Primary Dx); Encounter for change or removal of nonsurgical wound dressing 12/07/2014 8:20 AM EST Office Visit [facility] General Vascular Surgery [address] [facility] [address] [place] [address] Shira Meyers NP Ulcer of lower extremity (Primary Dx); Venous stasis of lower extremity 12/03/2014 9:00 AM EST Nurse Visit [facility] General Vascular Surgery [address] [facility] [address] [place] [address] Anabel Springer, BIOLOGICAL INSPECTOR Edema (Primary Dx); Encounter for change or removal of nonsurgical wound dressing 11/23/2014 9:00 AM EST Nurse Visit [facility] General Vascular Surgery [address] [facility] [address] [place] [address] Beba Parker LPN Edema (Primary Dx); Encounter for change or removal of nonsurgical wound dressing 11/16/2014 9:00 AM EST Nurse Visit [facility] General Vascular Surgery [address] [facility] [address] [place] [address] Anabel Springer LPN Edema (Primary Dx); Encounter for change or removal of nonsurgical wound dressing 11/15/2014 Telephone [facility] [address] [place] [address] Roger Johnson DPM FYI 11/09/2014 8:40 AM EST Office Visit [facility] General Vascular Surgery [address] [facility] [address] [place] [address] Shira Meyers NP Ulcer of lower extremity (Primary Dx); Venous stasis of lower extremity 08/22/2014 3:30 PM EST Minor Procedure/Test [facility] [address] [place] [address] Roger Johnson DPM Type II diabetes mellitus with peripheral circulatory disorder (Primary Dx); Onychomycosis; Peripheral angiopathy in diseases classified elsewhere; Pain in limb 08/09/2014 Telephone [facility] General Vascular Surgery [address] [facility] [address] [place] [address] Shira Meyers NP Patient Questions ; Equipment/supplies 08/09/2014 8:20 AM EDT Office Visit [facility] General Vascular Surgery [address] [facility] [address] [place] [address] Shira Meyers NP Lymphedema (Primary Dx); Ulcer of lower extremity; Chronic venous insufficiency 07/26/2014 8:20 AM EDT Office Visit [facility] General Vascular Surgery [address] [facility] [address] [place] [address] [address] Onge, Shira, MOBILE HEAVY EQUIPMENT OPERATOR Ulcer of lower extremity (Primary Dx); Chronic venous insufficiency; Morbid obesity; Venous stasis of lower extremity 07/25/2014 Telephone [facility] General Vascular Surgery [address] [facility] [address] [place] [address] Tamika Lomax MD Wound Care; Equipment/supplies 07/20/2014 10:00 AM EDT Office Visit [facility] General Vascular Surgery [address] [facility] [address] [place] [address] Tamika Lomax MD Venous stasis dermatitis (Primary Dx); Venous ulcer of leg 05/31/2014 8:40 AM EDT Office Visit [facility] General Vascular Surgery [address] [facility] [address] [place] [address] [address] Onge, Shira, MOBILE HEAVY EQUIPMENT OPERATOR Ulcer of lower extremity (Primary Dx); Chronic venous insufficiency 05/04/2014 Telephone [facility] General Vascular Surgery [address] [facility] [address] [place] [address] [address] Onge, Shira, MOBILE HEAVY EQUIPMENT OPERATOR No Show 03/29/2014 10:00 AM EDT Office Visit [facility] General Vascular Surgery [address] [facility] [address] [place] [address] [address] Onge, Shira, MOBILE HEAVY EQUIPMENT OPERATOR Morbid obesity (Primary Dx); Ulcer of lower extremity; Venous stasis of lower extremity 02/26/2014 10:00 AM EDT Office Visit [facility] General Vascular Surgery [address] [facility] [address] [place] [address] [address] Onge, Shira, MOBILE HEAVY EQUIPMENT OPERATOR Ulcer of lower extremity (Primary Dx); Venous stasis of lower extremity 01/29/2014 1:20 PM EDT Office Visit [facility] General Vascular Surgery [address] [facility] [address] [place] [address] [address] Onge, Shira, MOBILE HEAVY EQUIPMENT OPERATOR Ulcer of lower extremity (Primary Dx); Venous stasis of lower extremity; Morbid obesity 01/23/2014 11:00 AM EDT Office Visit [facility] General Vascular Surgery [address] [facility] [address] [place] [address] [address] Onge, Shira, MOBILE HEAVY EQUIPMENT OPERATOR Edema (Primary Dx); Morbid obesity; Ulcer of lower extremity; Venous stasis of lower extremity 01/16/2014 11:00 AM EDT Office Visit [facility] General Vascular Surgery [address] [facility] [address] [place] [address] [address] Onge, Shira, MOBILE HEAVY EQUIPMENT OPERATOR Morbid obesity (Primary Dx); Venous stasis of lower extremity; Edema; Ulcer of lower extremity 11/23/2013 Telephone [facility] [address] [place] [address] Roger Johnson DPM FYAric 11/22/2013 Telephone [facility] General Vascular Surgery [address] [place] [address] [address] Onge, Shira, MOBILE HEAVY EQUIPMENT OPERATOR No Show 10/10/2013 10:40 AM EST Office Visit [facility] General Vascular Surgery [address] [facility] [address] [place] [address] St Onge, Shira, MOBILE HEAVY EQUIPMENT OPERATOR Ulcer of lower extremity (Primary Dx); Venous stasis of lower extremity 09/05/2013 9:20 AM EST Office Visit [facility] General Vascular Surgery [address] [place] [address] St Onge, Shira, MOBILE HEAVY EQUIPMENT OPERATOR Morbid obesity (Primary Dx); Ulcer of lower extremity; Chronic venous insufficiency 08/15/2013 9:40 AM EDT Office Visit [facility] General Vascular Surgery [address] [facility] [address] [place] [address] [address] Onge, Shira, MOBILE HEAVY EQUIPMENT OPERATOR Morbid obesity (Primary Dx); Ulcer of lower extremity; Venous stasis of lower extremity 08/09/2013 1:30 PM EDT Consult (Initial) [facility] [address] [place] [address] Roger Johnson DPM Type II diabetes mellitus with peripheral circulatory disorder (Primary Dx); Onychomycosis; Peripheral angiopathy in diseases classified elsewhere; Pain in limb 07/24/2013 10:30 AM EDT Office Visit [facility] General Vascular Surgery [address] [facility] [address] [place] [address] Tamika Lomax MD Venous ulcer of leg (Primary Dx); Venous insufficiency 07/07/2013 9:00 AM EDT Office Visit [facility] General Vascular Surgery [address] [facility] [address] [place] [address] Shira Meyers NP Ulcer of lower extremity (Primary Dx); Venous stasis of lower extremity; Morbid obesity 06/21/2013 2:30 PM EDT Office Visit [facility] General Vascular Surgery [address] [facility] [address] [place] [address] Tamika Lomax MD Venous ulcer of leg (Primary Dx) 06/15/2013 Telephone [facility] General Vascular Surgery [address] [facility] [address] [place] [address] Tamika Lomax MD Wound Care 06/14/2013 Minor Procedure/Test NON FC [facility] [address] [place] [address] Tamika Lomax MD 06/09/2013 Orders Only [facility] [address] [facility] [address] [place] [address] Shilpi Vasquez Tech 06/09/2013 9:00 AM EDT Nurse Visit [facility] Pre-Admission Testing [address] [place] [address] Ally Ervin RN Leg ulcer (Primary Dx) 06/09/2013 8:00 AM EDT Office Visit [facility] Pre-Admission Testing [address] [place] [address] Yolande Garcia NP Pre-operative examination (Primary Dx); Venous ulcer of leg; Deep vein thrombosis; HTN (hypertension); Sleep apnea; Spinal stenosis 06/07/2013 2:45 PM EDT Office Visit [facility] General Vascular Surgery [address] [facility] [address] [place] [address] Tamika Lomax MD Leg ulcer (Primary Dx); Venous stasis 05/31/2013 9:00 AM EDT Nurse Visit [facility] General Vascular Surgery [address] [facility] [address] [place] [address] Stinehart, Anabel, BIOLOGICAL INSPECTOR Ulcer of lower extremity (Primary Dx); Edema; Encounter for change or removal of nonsurgical wound dressing 05/24/2013 9:20 AM EDT Office Visit [facility] General Vascular Surgery [address] [place] [address] [address] [place] [address] Shira Meyers NP Ulcer of lower extremity (Primary Dx); Venous stasis of lower extremity 05/18/2013 Orders Only FAM PRAC UNSPECIFIED Malik Nolan DO 05/17/2013 9:15 AM EDT Nurse Visit [facility] General Vascular Surgery [address] [facility] [address] [place] [address] Stinehart, Anable, BIOLOGICAL INSPECTOR Edema (Primary Dx); Encounter for change or removal of nonsurgical wound dressing; Ulcer of calf 05/10/2013 9:15 AM EDT Nurse Visit [facility] General Vascular Surgery [address] [place] [phone] Stinehart, Anabel, BIOLOGICAL INSPECTOR Ulcer of lower extremity (Primary Dx); Edema; Encounter for change or removal of nonsurgical wound dressing 05/03/2013 9:20 AM EDT Office Visit [facility] General Vascular Surgery [address] [facility] [address] [place] [address] Shira Meyers NP Morbid obesity (Primary Dx); Ulcer of lower extremity; Venous stasis of lower extremity 04/26/2013 9:20 AM EDT Consult (Initial) [facility] General Vascular Surgery [address] [facility] [address] [place] [address] Shira Meyers NP Ulcer of lower extremity [...] stasis 1 PATCH DAILY Active NYSTATIN, TOPICAL, [id number] U/GM OintmentIndicati ons:Leg ulcer (HCC),Venous stasis None [...] 07/22/2022,05/06/2022 Social History Smoking Status as of 07/09/2025 Tobacco Use Types Packs/Day Years Used Date [...] Not on file Procedures * Due to [place] state law, this organization might not be [...] DIAGNOSTIC PROCE 05/18/2013 Results * Due to [place] state law, this organization might not be sharing negative HIV tests. * UNSPECIFIED MAJOR PROCEDURE (09/29/2019) us Joshua Hendrix MD PROCEDURES Final Resul t * (ABNORMAL) CBC WITH 5 PART DIFF (02/19/2017 7:20 AM EDT) Only the most recent of3 resultswithin the time period is included. WHITE BLOOD COUNT 6.4 3.9 - 11.0 x1000/uL [facility] Comment: Smear review performed when a >50% change is noted in any parameter, or more than 72 hours has elapsed since the last CBC. RBC 3.47(L) 4.30 - 5.80 mil/ul [facility] Hemoglobin 10.8(L) 12.5 - 17.0 g/dL [facility] HCT (HEMATOCRIT) 33.4(L) 36.0 - 50.0 % [facility] MCV 96 80 - 100 fL [facility] MCH 31 27 - 33 pg [facility] MCHC 32 31 - 36 g/dL [facility] RDW 14.7(H) 11.4 - 14.4 % [facility] PLATELETS 337 150 - 450 x1000/uL [facility] MPV 9.6 7.0 - 11.0 fL [facility] NEUTROPHILS 69 % [facility] LYMPHOCYTE % 16 % [facility] MONOCYTE % 12 % [facility] EOSINOPHIL % 2 % [facility] BASOPHIL % 1 % [facility] NEUTROPHILS (#) 4.4 1.8 - 7.0 x1000/uL [facility] LYMPHOCYTES # 1.0 0.7 - 4.5 x1000/uL [facility] MONOCYTES # 0.8 0.1 - 0.8 x1000/uL [facility] EOSINOPHILS # 0.1 0.0 - 0.4 x1000/uL [facility] BASOPHILS # 0.1 0.0 - 0.2 x1000/uL [facility] 02/19/2017 7:20 AM EDT 02/19/2017 7:20 AM EDT Tamika Lomax MD LABORATORY Final Res ult Performing Organization Address [facility] de Phone Number [facility] [address] [place] [address] * (ABNORMAL) PROTHROMBIN TIME (02/19/2017 7:20 AM EDT) Only the most recent of3 resultswithin the time period is included. PT (PROTHROMBIN TIME) 19.0(H) 9.1 - 12.0 sec [facility] INR 1.8(L) 2.0 - 3.5 [facility] Comment: INR reference interval applies to patients on anticoagulant therapy. Suggested INR therapeutic range for oral anticoagulant therapy:(Stabilized anticoagulated patients) Routine Therapy: 2.0-3.0 Recurrent Myocardial Infarction or Mechanical Prosthetic Valves: 2.5-3.5 02/19/2017 7:20 AM EDT 02/19/2017 7:20 AM EDT Tamika Lomax MD LABORATORY Final Res ult Performing Organization Address [facility] Co de Phone Number [facility] [address] [place] [address] * URINALYSIS,C&S IF INDICATED (02/18/2017 8:33 PM EDT) COLOR (URINE) YELLOW [facility] APPEARANCE (URINE) CLOUDY [facility] GLUCOSE (URINE) NEGATIVE Negative mg/dL [facility] BILIRUBIN (URINE) NEGATIVE Negative [facility] Ketones (Urine) NEGATIVE Negative mg/dL [facility] SPECIFIC GRAVITY 1.022 1.005 - 1.030 [facility] BLOOD (URINE) NEGATIVE Negative [facility] PH (URINE) 5.5 5.0 - 8.0 [facility] PROTEIN (URINE) NEGATIVE Neg-Trace mg/dL [facility] UROBILINOGEN 0.2 0.2 - 1.0 mg/dL [facility] NITRITE (URINE) NEGATIVE Negative [facility] WBC (URINE) NEGATIVE Negative [facility] Microscopic (Urine) [facility] Comment:Microscopic not leonor cated Culture Indication NO [facility] 02/18/2017 8:33 PM EDT 02/18/2017 8:33 PM EDT us Tamika Lomax MD LABORATORY Final Res ult Performing Organization Address City/[facility] Co de Phone Number [facility] [address] [place] [address] * CULTURE, BLOOD #2 (02/17/2017 3:10 PM EDT) SOURCE: Venipuncture [facility] Result(s) No growth after 5 days incubation [facility] REPORT STATUS: Final [facility] 02/17/2017 3:10 PM EDT 02/17/2017 3:10 PM EDT us Tamika Lomax MD LABORATORY Final Res ult Performing Organization Address City/[facility]/ZIP Co de Phone Number [facility] [address] [place] [address] * CULTURE, BLOOD #1 (02/17/2017 3:05 PM EDT) SOURCE: Venipuncture [facility] Result(s) No growth after 5 days incubation [facility] REPORT STATUS: Final [facility] 02/17/2017 3:05 PM EDT 02/17/2017 3:05 PM EDT us Tamika Lomax MD LABORATORY Final Res ult [facility] [address] [place] [address] * PHOSPHORUS (02/17/2017 3:05 PM EDT) PHOSPHATE 3.0 2.5 - 4.5 mg/dL [facility] 02/17/2017 3:05 PM EDT 02/17/2017 3:05 PM EDT Tamika Lomax MD LABORATORY Final Res ult Performing Organization Address City/[facility]/ZIP Co de Phone Number [facility] [address] [place] [address] * MAGNESIUM (02/17/2017 3:05 PM EDT) MAGNESIUM 1.8 1.6 - 2.6 mg/dL [facility] 02/17/2017 3:05 PM EDT 02/17/2017 3:05 PM EDT Tamika Lomax MD LABORATORY Final Res ult Performing Organization Address [facility] Co de Phone Number [facility] [address] [place] [address] * (ABNORMAL) BASIC METABOLIC PANEL (02/17/2017 3:05 PM EDT) Glucose 128(H) 65 - 99 mg/dL [facility] BUN 11 5 - 26 mg/dL [facility] CREATININE 0.93 0.5 - 1.5 mg/dL [facility] BUN/Creatinine Ratio 12 8 - 27 [facility] GLOM FILT RATE, EST 94.1 >59 mL/min [facility] IF -KENNETH N 109.0 >59 mL/min [facility] SODIUM 139 134 - 144 mEq/L [facility] POTASSIUM 3.7 3.6 - 5.6 mEq/L [facility] CHLORIDE 104 96 - 109 mEq/L [facility] CARBON DIOXIDE 23 20 - 32 mEq/L [facility] ANION GAP 12.0 8 - 15 [facility] CALCIUM 8.5 8.3 - 10.0 mg/dL [facility] 02/17/2017 3:05 PM EDT 02/17/2017 3:05 PM EDT Tamika Lomax MD LABORATORY Final Res ult [facility] [address] [place] [address] * CXR 2 VIEW AP/PA AND LAT (02/17/2017 1:59 PM EDT) RADIOLOGY REPORT [facility] Department of Radiology [address] [place] [address], [address] Name: RICARDO REECE : 63 Date of Service: 02/17/171454 Acct Number: [id number] Order Number: [id number] Location: [facility] Report Number: [id number] Service: ADM IN/HENRRY Requesting Physician: Larry Burgos Category: RADIOLOGY [facility] Exam: CHEST 2 VIEW (DEPARTMENT) Signs/Symptoms: eval [...] is seen. Date/Time of Dictation: 02/17/17 1503 Health Services Director (if applicable): Approved By Attending Radiologist: Dylon Garcia 02/17/17 1503 [facility] Department of Radiology [address] [place] [address], [address] [facility] Anatomical Region Laterality Modality Other 02/17/2017 1:59 PM EDT Narrative 02/17/2017 3:04 PM EDT Reason for Study/History: Department of Radiology TEST(S) PROCESSED BY [facility] XRAY Unknown Provider [facility] IMAGING-[facility] Final Resul t * CULTURE,ANAEROBIC (06/14/2013 10:50 AM EDT) SOURCE: Tissue wound rt leg [facility] GRAM STAIN Many (>25/lpf) WBC No bacteria seen [facility] Result(s) No anaerobes isolated Aerobic Gram Positive Cocci [facility] REPORT STATUS: Final [facility] 06/14/2013 10:5 0 AM EDT 06/14/2013 10:50 AM EDT Tamika Lomax MD LABORATORY Final Res ult Performing Organization Address [facility] Co de Phone Number [facility] [address] [place] [address] * CULTURE,ANY SOURCE (06/14/2013 10:48 AM EDT) SOURCE: Tissue wound rt leg [facility] GRAM STAIN Many (>25/lpf) WBC No bacteria seen [facility] Result(s) Streptococcus species Group G - Light growth (1-2+) Mixed gram positive organisms - Rare growth [facility] REPORT STATUS: Final [facility] 06/14/2013 10:4 8 AM EDT 06/14/2013 10:48 AM EDT us Tamika Lomax MD LABORATORY Final Res ult Performing Organization Address City/[facility]/ZIP Co de Phone Number [facility] [address] [place] [address] * UNSPECIFIED MAJOR PROCEDURE (06/14/2013) Narrative Transcriptions [...] was 16 cm2. SURGEON: Dr. Tamika Lomax. THERMAL CUTTER HELPER: Dr. Bradlye. ANESTHESIA: General. ESTIMATED BLOOD LOSS: Minimal. SPECIMENS: [...] underneath. Once this was accomplished, the [employer] choral teacher was brought into the field and the [...] 11:51 A TT: 12:06 P Doc #: [id number] cc: MD Malik Washburn MD Tamika Lomax [...] 06/09/2013 7:25 AM EDT us Yolande Garcia MOBILE HEAVY EQUIPMENT OPERATOR CARDIOVASCULAR-WITH INBSKT R TG Final Result MUSE [...] Onychomycosis Dermatophytosis of nail 10/31/2015 Atherosclerosis of tangirnaq artery of both lower extremities, with unspecified [...] lower legs, limited to breakdown of skin ([facility]) 12/22/2017 Lymphedema Other lymphedema 12/22/2017 Edema, unspecified [...] Onychomycosis Dermatophytosis of nail 04/13/2018 Atherosclerosis of tangirnaq artery of both lower extremities, with unspecified [...] lower legs, limited to breakdown of skin ([facility]) 06/01/2018 Spinal stenosis of lumbar [...] with neurogenic claudication 08/15/2018 BMI 50.0-59.9, adult ([facility]) Body Mass Index 50.0-59.9, adult [...] of right lower extremity, unspecified ulcer stage ([facility]) 07/04/2019 Lymphedema of both lower extremities 07/04/2019 [...] right leg, limited to breakdown of skin ([facility]) 03/05/2021 Care Teams Shop Hand Relationship Specialty Start Date End Date Destiny Trinidad MD [facility] [address] [place] [address] PCP - General Family Medicine 12/22/17
== END 2025-07-09 12:17 | disposition home or self-care (01) ==
LOC: HO.HUSH 11:44
PROVIDERS: PCP Family Medicine; Visit Provider Urology
DX: Z12.5 Encounter for screening for malignant neoplasm of prostate (principal); E66.01 Morbid (severe) obesity due to excess calories; R35.0 Frequency of micturition; N39.41 Urge incontinence; N20.0 Calculus of kidney
CPT/HCPCS: 99214; G2211

== ENCOUNTER → 2025-07-09 11:44 | Outpatient (BNVA) | payer MEDICARE, MEDICAID, SELFPAY | PROVIDERS: PCP Family Medicine; Visit Provider Urology | DX: Z12.5 Encounter for screening for malignant neoplasm of prostate (principal); N20.0 Calculus of kidney; R35.0 Frequency of micturition; N39.41 Urge incontinence; E66.01 Morbid (severe) obesity due to excess calories | CPT/HCPCS: 51798; 81003; 99212 ==

== ENCOUNTER 2025-07-19 11:15 | Outpatient (RCR) | payer MEDICARE, MEDICAID, SELFPAY | END 2025-07-19 16:27 | disposition home or self-care (01) | LOC: HO.WCC 11:15 | PROVIDERS: Visit Provider Colon & Rectal Surgery | DX: I87.323 Chronic venous hypertension (idiopathic) with inflammation of bilateral lower extremity (principal); I87.392 Chronic venous hypertension (idiopathic) with other complications of left lower extremity; E66.01 Morbid (severe) obesity due to excess calories; I89.0 Lymphedema, not elsewhere classified; I73.89 Other specified peripheral vascular diseases; I11.0 Hypertensive heart disease with heart failure; I50.9 Heart failure, unspecified; Z09 Encounter for follow-up examination after completed treatment for conditions other than malignant neoplasm; Z87.2 Personal history of diseases of the skin and subcutaneous tissue; Z87.891 Personal history of nicotine dependence | CPT/HCPCS: 29581; 97597; 97602; 99203; 99212; 99214 ==

== ENCOUNTER 2025-08-15 08:23 | Outpatient (AMB) | payer MEDICARE, MEDICAID, SELFPAY ==
[2025-08-15 08:41] VITALS: BMI 51.7
--- NOTE | 2025-08-15 08:41 | MHC.OFFVIS ---
Vital Signs 08/15/25 08:41 Height 5 ft 9 in Weight 350 lb BMI 51.7 Intake Visit Reasons: Nail disorder, unspec.,foot exam toe nail clipping Intake Note: Mendez is a 59 year old male who presents today as a new patient for an evaluation of his nail dosorder. Patient states this has been going on for more then two years and he has not tried any previous treatment at his time. Allergies cefaclor (From Ceclor) Allergy (Severe, Verified 08/15/25 08:43) hives epanolol Allergy (Severe, Verified 08/15/25 08:43) hives misoprostol Allergy (Severe, Verified 08/15/25 08:43) rash NSAIDS (Non-Steroidal Anti-Inflamma Allergy (Severe, Verified 08/15/25 08:43) GI upset Penicillins Allergy (Severe, Verified 08/15/25 08:43) hives, rash, itching Sulfa (Sulfonamide Antibiotics) Allergy (Severe, Verified 08/15/25 08:43) Hives Cephalosporins Allergy (Intermediate, Verified 08/15/25 08:43) hives amoxicillin Allergy (Mild, Verified 08/15/25 08:43) rash vancomycin Allergy (Mild, Verified 08/15/25 08:43) itching clindamycin Adverse Reaction (Intermediate, Verified 08/15/25 08:43) Rash Medication List - Last Reconciled 08/15/25 by Martha Flores DPM ammonium lactate 12% 1 appl topical BID apixaban 5 mg PO BID calcium carbonate-vitamin D3 600 mg-10 mcg (400 unit) 1 tab PO DAILY colesevelam 1,250 mg (2 x 625 mg) PO BID iron,carbonyl-vitamin C 65 mg iron- 125 mg (Vitron-C) 1 tab PO DAILY bqpbxy-[id number]-lqjwlkp (pork) 24,000-76,000 -120,000 unit (Creon) 2 caps PO BID metoprolol tartrate 50 mg See Protocol PO BID multivitamin with folic acid 400 mcg (Daily-Brent (with folic acid)) 1 tab PO DAILY omeprazole 40 mg PO DAILY oxybutynin chloride ER 15 mg PO DAILY oxycodone 5 mg PO Q6H PRN sertraline 100 mg PO DAILY simethicone (Gas Relief (simethicone)) 125 mg PO BID-QID PRN sucralfate 10 mL PO BID PRN tamsulosin 0.4 mg PO DAILY vibegron (Gemtesa) 75 mg PO DAILY HPI Comments Details: The patient is a 59-year-old male with a past medical history as seen below presenting with intermittent discomfort while walking and numbness and tingling in the right foot. The numbness and tingling is localized to the right foot and does not extend up the leg. The patient reports that the symptoms are sometimes severe enough to prevent standing. The patient has a history of varicose veins, which were noted during the examination. He has an upcoming appointment with a vascular specialist to further evaluate the condition. Patient denies wearing compression stockings. The patient also reports dry skin on the feet, for which no treatment has been used so far. Patient also states he has difficulty tending to his feet and nails due to his PMH. He states he has noted a shift in his gait with more pressure being put on the lateral aspects. Patient states currently the only shoes he can wear are Crocs. Patient was accompanied by his son. Denies any other pedal concerns. [facility] Medical History (Updated 08/15/25 @ 09:11 by Martha Flores DPM) Xerosis of skin Onychogryphosis PAD (peripheral artery disease) Asymptomatic superficial varicosities of lower extremity, bilateral Neuropathy Tinea unguium Nail disorder Nail dystrophy Nocturnal hypoxemia Somnolence, daytime Loud snoring SHAYLA (obstructive sleep apnea) Paroxysmal A-fib Atrial flutter PAF (paroxysmal atrial fibrillation) On beta paty at home On anticoagulant therapy SHAYLA on CPAP Bronchial asthma Restrictive lung disease Migration of vascular stent Pulmonary embolus Family history of stent Uncomplicated opioid dependence Lymphedema Lumbar disc disease Venous stasis Hyperlipidemia Neurogenic bladder Dyspnea Lumbar disc prolapse with root compression History of kidney stones GERD (gastroesophageal reflux disease) OA (osteoarthritis) Morbid obesity Asthma Depression Essential hypertension Surgical History Hx of cervical spine surgery S/P IVC filter S/P appendectomy Hx of colonoscopy History of esophagogastroduodenoscopy (EGD) Hx of eye surgery Hx of gastric bypass Family History Mother Diabetes Father Brain cancer Sister Diabetes Sister Diabetes Sister Diabetes Brother Blind Brother No problems noted. Brother No problems noted. Brother No problems noted. Brother No problems noted. Daughter No problems noted. Daughter Mental health disorder Son Mental health disorder Son No problems noted. Son No problems noted. Social History Household Members: Spouse and Children Household Members Other:: - 5 kids Housing: House Are you a primary pediatric acute care unit nurse to a significant other at home: No Do you presently have visiting nurse or other home services: No Alcohol intake: former Year quit: 1979 Comment: uses cane at times- knee gives out Patient Tobacco Use Status: Never used Tobacco Second Hand Smoke Exposure: No Advance Directives Date on File: 08/14/21 service: No Current occupational status: disabled Current occupation: rt handed Review of Systems Const Details: - Neurological: Reports numbness and tingling in the right foot. Denies numbness or tingling in the left foot. - Dermatological: Reports dry skin on the feet. Reports thickened, elongated, and discolored toenails x10. All systems reviewed & are unremarkable except as noted in HPI and below Physical Exam Vital Signs: BMI result Body Mass Index 51.7 Extrem Other: B/L LE Focused Physical Exam: Derm: Mild mottling of skin noted. Toenails x10 noted to be dystrophic, discolored, and elongated with subungual debris. Hyperkeratotic areas noted diffusely to the feet. No open lesions, abrasions, or wounds noted. No maceration noted. No clinical signs of infection noted. Vasc: DP mild palpable. PT non palpable. CFT < 3 secs. Temp gradient warm to warm. Pedal hair absent. Varicosities noted. No edema noted. Neuro: Protective sensations grossly diminished to the right foot. Protective sensations intact to the left foot. MSK: No pain on palpation to the lower extremity. Pes planus foot type noted. MMT 5/5. ROM of the forefoot, hindfoot, and ankle WNL. No crepitus or fluctuance noted. Mildly antalgic gait noted with the use of a cane. Class B and C findings. Office Procedures AMB Debridement/Avulsion Podia Details: Debrided toenails x10 using sterile nail nippers with no incidents. Nail samples sent for pathology and microbiology. [id number] of Nail 6+ Procedure code (CPT) selection complete Results Reviewed Results Reviewed: Nail samples sent for pathology and microbiology. Patient states he is getting new lab work done next week. Assessment & Plan Assessment & Plan (1) Nail dystrophy: Code(s): L60.3 - Nail dystrophy Category: Medical (2) Nail disorder: Code(s): L60.9 - Nail disorder, unspecified Category: Medical (3) Tinea unguium: Code(s): B35.1 - Tinea unguium Category: Medical (4) Neuropathy: Code(s): G62.9 - Polyneuropathy, unspecified Category: Medical (5) Asymptomatic superficial varicosities of lower extremity, bilateral: Code(s): I83.93 - Asymptomatic varicose veins of bilateral lower extremities Category: Medical (6) PAD (peripheral artery disease): Code(s): I73.9 - Peripheral vascular disease, unspecified Category: Medical (7) Onychogryphosis: Code(s): L60.2 - Onychogryphosis Category: Medical (8) Nail dystrophy: Code(s): L60.3 - Nail dystrophy Category: Medical (9) Nail disorder: Code(s): L60.9 - Nail disorder, unspecified Category: Medical (10) Tinea unguium: Code(s): B35.1 - Tinea unguium Category: Medical (11) Neuropathy: Code(s): G62.9 - Polyneuropathy, unspecified Category: Medical (12) Asymptomatic superficial varicosities of lower extremity, bilateral: Code(s): I83.93 - Asymptomatic varicose veins of bilateral lower extremities Category: Medical (13) PAD (peripheral artery disease): Code(s): I73.9 - Peripheral vascular disease, unspecified Category: Medical (14) Xerosis of skin: Code(s): L85.3 - Xerosis cutis Category: Medical Plan Patient was informed and verbally consented to the use of an ambient scribe for clinic note documentation during this visit. I discussed with the patient the presence of varicose veins and the importance of consulting a vascular specialist to assess the need for compression stockings or other interventions. We reviewed the treatment options for onychomycosis, including topical and oral antifungal medications, and the need for liver function tests before starting oral treatment. I advised the patient to apply ammonium lactate cream for dry skin and to return in nine weeks for follow-up and nail trimming. - Advised patient to keep up with his vascular consultation to evaluate varicose veins and determine appropriate management, including potential use of compression stockings. - Prescribed ammonium lactate cream for dry skin to prevent fissures and breakdown of skin. - Consider topical or oral antifungal treatment for onychomycosis, pending lab results. - Debrided toenails x10. Nail samples sent to pathology and microbiology. - Advised patient to use OTC inserts and insoles. - Advised patient to wear supportive shoe gear and to avoid barefoot walking. RTC in 9 weeks. Orders: Orders Surgical Today B35.1 - Tinea unguium, L60.2 - Onychogryphosis, L60.3 - Nail dystrophy, L60.9 - Nail disorder, unspecified AMB Debridement/Avulsion Podiatry Today B35.1 - Tinea unguium, G62.9 - Polyneuropathy, unspecified, I73.9 - Peripheral vascular disease, unspecified, I83.93 - Asymptomatic varicose veins of bilateral lower extremities, L60.2 - Onychogryphosis, L60.3 - Nail dystrophy, L60.9 - Nail disorder, unspecified Fungus Cult Hair/Skin/Nail Today B35.1 - Tinea unguium, G62.9 - Polyneuropathy, unspecified, I73.9 - Peripheral vascular disease, unspecified, I83.93 - Asymptomatic varicose veins of bilateral lower extremities, L60.3 - Nail dystrophy, L60.9 - Nail disorder, unspecified Medications: New ammonium lactate 12% 1 appl topical BID 385 grams 1RF L85.3 - Xerosis cutis Coding Level of Care Code New Pt Level 4 (81366) Diagnoses Nail dystrophy L60.3 Nail disorder L60.9 Tinea unguium B35.1 Neuropathy G62.9 Asymptomatic superficial varicosities of lower extremity, bilateral I83.93 PAD (peripheral artery disease) I73.9 Onychogryphosis L60.2 Xerosis of skin L85.3 CPT Codes Skin Debridement - CPT: 77972-[id number] of Nail 6+ ([id number]) Time Spent (min) 55 Comment 10 mins spent on procedure
== END 2025-08-15 09:06 | disposition home or self-care (01) ==
PROVIDERS: PCP Family Medicine; Visit Provider Student in an Organized Health Care Education/Training Program
DX: L60.3 Nail dystrophy (principal); L60.9 Nail disorder, unspecified; B35.1 Tinea unguium; G62.9 Polyneuropathy, unspecified; I83.93 Asymptomatic varicose veins of bilateral lower extremities; I73.9 Peripheral vascular disease, unspecified; L60.2 Onychogryphosis; L85.3 Xerosis cutis
CPT/HCPCS: 11721; 99204

== ENCOUNTER 2025-08-15 08:23 | Outpatient (REF) | payer MEDICARE, MEDICAID, SELFPAY ==
--- OUTSIDE RECORDS SUMMARY | 2025-08-15 10:26 | XMS_ITS | Patient Health Record ---
Author Organization [facility] Billing Address [address] [place] [address] [place] [id number] Care Team Providers Care Branch Store Manager Name Role Phone SHIRA DOUGLAS MD Primary Care Provider Unav ailable JAVIDPAYTON IKE Unavailable [phone] Allergies Allergen (clinical drug ingredient) Drug/Non Drug [...] Status Risk Notes Problem Adverse drug effect (73356946) Adverse Effect Of Drug (995.20) Active confirmed Plan Of Treatment No Information Insurance Providers Payer Name Payer Address Payer Phone Subscriber Number Group Number Insured Name Patient Relationship to Insured Coverage Start Date Coverage End Date MEDICARE [address] R[place]O [place] [id number] Rhina clarker Jan Self - patient is the insured [facility] [address] [address] [address] [place] [address] [id number] Rhina jovel Jan Self - patient is the insured Medical (General) History Medical History History ICD Code Esophageal reflux spinal stenosis diabetes mallitus Edema blood clots Surgical History Surgery Date(Month/Year) gastric bypass 2003 Hospitalization History Reason Date(Month/Year) medication reaction 2011
--- OUTSIDE RECORDS SUMMARY | 2025-08-15 10:26 | XMS_ITS | Encounter Summary ---
Author Organization [facility] Address [address] [place] [address] Care Team Providers Care Test Hole Driller Name Role Phone Destiny Trinidad MD Primary Care Provider [phone] Steven Ch MD Unavailable [phone] Encounter Details Date Type Department Care Team (Late st Contact Info) Description 09/24/2021 Prep for Surgery [facility] [address] [place] [address] [phone] Nav Simmons PA-C [address] [place] [id number] Preop examination (Primary Dx) Social History Tobacco [...] examination documented in this encounter Care Teams Test Hole Driller Relationship Specialty Start Date End Date Destiny Trinidad MD [address] [address] PCP - General 09/25/21 Steven Ch MD [address] [place] [address] 3rd [place] [address] Flavorer Cardiovascular Disease 09/25/21 documented as of this encounter
--- OUTSIDE RECORDS SUMMARY | 2025-08-15 10:27 | XMS_ITS | Clinical Summary ---
Author Organization [facility] Address [address] [place] [address] Phone Care Team Providers Care Straightener Gun Parts Name Role Phone Destiny Trinidad MD Primary Care Provider [phone] Allergies Active Allergy Reactions Criticality Noted Date [...] every 7 days. 2 mL 4 Active FARXIGA 10 mg tablet Take [...] weeks, take 2 tabs BID 5 Active metoprolol tartrate (LOPRESSOR) 50 MG [...] 7 days. 2 mL 4 5 Active montelukast (SINGULAIR) 10 mg tablet Take 1 tablet (10 mg total) by mouth nightly at bedtime. at bedtime. 90 tablet 1 5 Active omeprazole (PRILOSEC) 40 MG capsule Take 1 capsule (40 mg total) by mouth daily. 90 capsule 3 5 Active tamsulosin (FLOMAX) 0.4 mg Cap Take 1 capsule (0.4 mg total) by mouth daily. 90 capsule 3 5 Active ferrous sulfate 325 mg (65 mg jackson iron) tablet Take 1 tablet (325 mg total) by mouth daily with breakfast. 90 tablet 3 5 Active diphenoxylate-atr opine (LOMOTIL) 2.5-0.025 mg/5 mL liquid Take 10 mL by mouth 4 (four) times a day as needed (diarrhea). 60 mL 5 5 Active gabapentin (NEURONTIN) 300 MG capsule Take 1 capsule (300 mg total) by mouth 3 (three) times a day. 270 capsule 3 5 10/14/20 25 Active oxyCODONE 5 MG immediate release tablet Take 1 tablet (5 mg total) by mouth daily as needed for pain (specific location in comments) (back pain). Pt. may request partial fill. Use sparingly. Mass PAT checked. 30 tablet 5 Active cyclobenzaprine (FLEXERIL) 5 MG tablet Take 1 tablet (5 mg total) by mouth 3 (three) times a day as needed (spasm). 60 tablet 1 5 Active oxyBUTYnin (DITROPAN XL) 15 MG 24 hr tablet Take 1 tablet (15 mg total) by mouth daily. 90 tablet 4 5 Active Active Problems Patient Care Coordination No te Formatting of this note is d ifferent from the original. *PLEASE DO NOT REMOVE OR MODIFY CHART REFERENCES AND TMP NOTATIONS - THANK YOU!* (Please contact TMP Reviewer via e-mail to inform of any errors) (for a Quick Reference List of common [facility] diagnoses and requirements, click here: TMP) 2019 [facility] Consider billing: DX: Morbid Obesity/E66.01 (HCC 22) DX: Intermittent Afib/I48.0 (HCC 96) DX: Major Depression/F33.9 (HCC 59)1 DX: Aortic Ectasia/I77.819 (HCC 108)2 JDW 12/07 1long term SSRI use; [...] or specific plan for committing suicide [2] [employer]. Diagnostic and Statistical Manual of Mental Disorders, Fifth Edition. [place]: [employer]; 2013. 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 [facility] Osteoarthritis 05/19/2006 Overview (12/08/2014): Degenerative joint [...] Encounters Date Type Department Care Team Description 08/09/2025 Orders Only [facility] [address] [place] [address] Darcy Coles MA Nail disorder, unspecified (Primary Dx) 07/26/2025 Orders Only [facility] [address] [place] [address] Elli Leon MA Morbid obesity (Primary Dx); Mobility equipment requested 07/16/2025 Orders Only [facility] [address] [place] [address] Destiny Trinidad MD Morbid obesity (Primary Dx); Uncomplicated asthma, unspecified asthma severity, unspecified whether persistent; Lumbar disc disease from Last 3 Months Immunizations Immunization Administration Dates Next Due COVID-19 (Pre-08/09) Pfizer Vaccine, mRNA, PF 05/21/2022,10/13/2021,01/08/2021,12/18 COVID-19, Unspecified Formulation 10/15/2021 INFLUENZA, SPLIT VIRUS, TRIV ALENT W/ PRESERVATIVE IM 06/24/2012 Influenza Quadrivalent Prese rvative Free IM 06/17/2021,08/07/2014 Influenza Quadrivalent w/ Pr eservative IM 11/16/2023,07/06/2019,08/02/2018,06/29,08/07/2016,07/02/2015 Influenza Recombinant Blank valent Preservative Free IM 07/21/2022 Influenza, Unspecified Formulation 05/25(Deferred: Other - , Ordered By: [id number]) Pneumococcal conjugate PCV13 09/22/2017 Pneumococcal conjugate PCV21 12/05/2024 Pneumococcal polysaccharide PPSV23 09/25,11/24/2012(Deferred: Other - , Ordered By: [id number]) Tdap 12/07/2019,,05/25/2013(Defer red: Other - , Ordered By: [id number]),11/24/2012(Deferred: Other - , Ordered By: [id number]) Zoster recombinant 07/22/2022,05/06/2022 Family History Medical History [...] Info) Description 09/18/2025 10:30 AM EST Follow-Up [facility] [address] [place] [address] Destiny Trinidad MD [address] [place] [address] [email or web address] Health Maintenance Due Date Last Done Comments COLOGUARD 2009 FIT TEST 2009 FOBT 2009 SIGMOIDOSCOPY 2009 VIRTUAL COLONOSCOPY 2009 RSV VACCINE (1 - Risk 50-74 years 1-dose series) 2014 TSH LEVEL 01/02/2023 01/02/2022, 05/19, 09/07/2019, Additional history exists INFLUENZA VACCINE (#1) 2025 , 07/21/2022, 06/17/2021, [...] EST) Sodium 139 135 - 146 mEq/L [facility] Potassium 4.4 3.5 - 5.3 mEq/L [facility] Chloride 104 98 - 107 mEq/L [facility] CO2 26 20 - 31 mEq/L [facility] Anion Gap 9 4 - 14 [facility] Glucose 90 70 - 99 mg/dL [facility] BUN 16 6 - 20 mg/dL [facility] Creatinine 0.8(L) 0.9 - 1.3 mg/dL [facility] GFR >100 >60 mL/min/1.7 3m^2 [facility] Calcium 8.8 8.4 - 10.2 mg/dL [facility] Corrected Calcium 9.0 8.4 - 10.2 mg/dL [facility] Protein, Total 7.2 6.2 - 8.2 g/dL [facility] Alkaline Phosphatase 80 0 - 130 U/L [facility] Albumin 3.8 3.4 - 5.2 g/dL [facility] ALT (SGPT) 10 0 - 40 U/L [facility] AST (SGOT) 19 0 - 33 U/L [facility] Bilirubin, Total 0.5 0.3 - 1.2 mg/dL [facility] Blood 12/05/2024 6:53 PM EST 12/05/2024 6:53 PM EST Narrative Resulting Agency Comment No Destiny Trinidad MD LAB BLOOD ORDERABLES Final Re sult Performing Organization Address City/[facility] Co de Phone Number [facility] [address] [place] [address], [facility] * (ABNORMAL) Lipid panel (12/05/2024 6:53 PM EST) Cholesterol 157 <200 mg/dL [facility] Triglycerides 105 <150 mg/dL [facility] Cholesterol, HDL 37(L) >40 mg/dL [facility] LDL Cholesterol, Calculated 99 <129 mg/dL [facility] Cholesterol/HDL Ratio 4.24 <4.96 [facility] Blood 12/05/2024 6:53 PM EST 12/05/2024 6:53 PM EST Narrative Resulting Agency Comment No Destiny Trinidad MD LAB BLOOD ORDERABLES Final Re sult Performing Organization Address City/[facility]/ZIP Co de Phone Number [facility] [address] [place] [address], [facility] * HM COLONOSCOPY FOR RESULT ENTRY ONLY (10/29/2022) Davon Parker MD HEALTH MAINTENANCE Final Result * TSH (01/02/2022 2:19 PM EDT) Pathologist [facility] TSH 3.11 0.35 - 5.50 uIU/mL [facility] Blood 01/02/2022 2:19 PM EDT 01/02/2022 2:19 PM EDT Destiny Trinidad MD LAB BLOOD ORDERABLES Final Re sult Performing Organization Address [facility]/[place] [address] * Hepatitis C antibody, qualitative (09/07/2019 2:27 PM EST) HepC AB Non Reactive Non Reactive;E quivocal;R eactive [facility] 09/07/2019 2:27 PM EST 09/07/2019 2:27 PM EST Vanita Fernandez NP LAB BLOOD ORDERABLES Edited Resu lt - Final Performing Organization Address [facility] [place] [address] from Last 3 Months or Most Recently Relevant to Health Maintenance Insurance [facility] REPLACEMENT [facility] [employer] RE[employer]EMENT [facility] [employer] REPL[employer]EMENT [facility] [employer] REPLACEMENT MEDICARE REPLACEMENT [place] [address] MEDICARE REPLACEMENT MEDICARE REPLACEMENT MEDICARE REPLACEMENT [place] [address] [employer] [facility] MEDIC[employer] REPLACEMENT [facility] MEDICARE PART [place] [id number] Care Teams Straightener Gun Parts Relationship Specialty Start Date End Date Destiny Trinidad MD [address] [place] [address] [email or web address] PCP - General Family Medicine 06/11/20 Additional Source Comments The information contained in this document represents components of the legal health record. It is not the complete legal health record.[facility]
--- OUTSIDE RECORDS SUMMARY | 2025-08-15 10:27 | XMS_ITS | Encounter Summary ---
Author Organization [facility] Address [address] [place] [address] Phone Care Team Providers Care Scientific Artist Name Role Phone Destiny Trinidad MD Primary Care Provider [phone] Reason for Visit * Reason Comments Med Change Request Encounter Details Date Type Department Care Team (Late st Contact Info) Description 04/19/2025 [facility] [address] [place], [place] [phone] Adilia Mack CNP [address] [place] [address] [email or web address] Med Change Request Social History Tobacco Use [...] Info) Description 09/18/2025 10:30 AM EST Follow-Up [facility] [address] [place] [address] Destiny Trinidad MD [address] [place] [address] documented as of this encounter Goals Goal [...] documented as of this encounter Care Teams Scientific Artist Relationship Specialty Start Date End Date Destiny Trinidad MD [address] [place] [address] PCP - General Family Medicine 06/11/20 documented as of this encounter Additional Source Comments The information contained in this document represents components of the legal health record. It is not the complete legal health record.[facility]
--- OUTSIDE RECORDS SUMMARY | 2025-08-15 10:27 | XMS_ITS | Clinical Summary ---
Author Organization [facility] Address [address] [place] [address] Care Team Providers Care Fugitive Detective Name Role Phone Destiny Trinidad MD Primary Care Provider [phone] Steven Ch MD Unavailable [phone] Allergies Active Allergy Reactions Criticality Noted [...] (three) times a day. Active nystatin (MYCOSTATIN) 874179 UNIT/GM cream Apply topically 2 (two) times [...] Dates Next Due Covid-19 MRNA Vaccine - Picklify 12+ (Purple Cap) 10/13/2021 Family History Medical [...] 50+ (1 of 1 - PCV) 2014 RSV Vaccine 50 years and older and Patients (1 - Risk 50-74 years 1-dose series) 2014 Zoster (Shingles) Vaccine (1 of 2) 2014 Influenza Vaccine 05/18/2025 06/17/2021, 08/07/2014, 06/24/2012 COVID-19 Vaccine ( - 2024-2 6 season) 2025 10/13/2021, 01/08/2021, 12/18/2020 Hepatitis B Vaccines Aged Out No long er eligible based on patient's age to complete this [place] [id number] [facility] MEDICARE [facility] Care Teams Fugitive Detective Relationship Specialty Start Date End Date Destiny Trinidad MD [address] [address] PCP - General 09/25/21 Steven Ch MD [address] [place] [address] 3rd [place] [address] Organic Preparation Technician Cardiovascular Disease 09/25/21
--- OUTSIDE RECORDS SUMMARY | 2025-08-15 10:27 | XMS_ITS | Encounter Summary ---
Author Organization [facility] Address [address] [place] [address] Phone Care Team Providers Care Disc Recordist Name Role Phone Destiny Trinidad MD Primary Care Provider [phone] Reason for Referral * Consultation (Within 2 weeks) - New Request Specialty Diagnoses / Procedures Referred By Contac t Referred To Contact Diagnoses Nail disorder, unspecified Destiny Trinidad MD [address] [place] [address] Phone: tel: fax: mailto: Referral ID Status Reason Start Date Expiration Date V isits Requested Visits Authorized [id number] New Request 08/09/2025 08/09/2026 1 1 Encounter Details Date Type Department Care Team (Late st Contact Info) Description 08/09/2025 Orders Only [facility] [address] [place] [address] Darcy Coles MA [address] [place] [address] [email or web address] Nail disorder, unspecified (Primary Dx) Social History Tobacco Use Types [...] Upcoming Encounters Date Type Department Care Team ([facility] st Contact Info) Description 09/18/2025 10:30 AM EST Follow-Up [facility] [address] [place] [address] Destiny Trinidad MD [address] [place] [address] [email or web address] [email or web address] Scheduled Referrals Name Type Priority Associated Diagnoses Orde r Schedule Ambulatory referral to External Podiatry Outpatient Referral Routine Nail disorder, unspecified Ordered: 08/09/2025 documented as of this encounter Goals Goal [...] as of this encounter Visit Diagnoses Diagnosis Nail disorder, unspecified- Primary documented in this encounter Additional Health Concerns Assessment Noted Time PHQ-9 Depression Total Score: 5 12/05/19 3:38 PM EST PHQ-2 Depression Total Score: 0 12/05/19 3:38 PM EST documented as of this encounter Care Teams Disc Recordist Relationship Specialty Start Date End Date Destiny Trinidad MD [address] [place] [address] [email or web address] PCP - General Family Medicine 06/11/20 documented as of this encounter Additional Source Comments The information contained in this document represents components of the legal health record. It is not the complete legal health record.[facility]
--- OUTSIDE RECORDS SUMMARY | 2025-08-15 10:27 | XMS_ITS | Encounter Summary ---
Author Organization [facility] Address [address] [place] [address] Phone Care Team Providers Care Case Manager Specialist Name Role Phone Destiny Trinidad MD Primary Care Provider [phone] Encounter Details Date Type Department Care Team ([facility] st Contact Info) Description 07/16/2025 Orders Only [facility] [address] [place] [address] Destiny Trinidad MD [address] [place] [address] [email or web address] Morbid obesity (Primary Dx); Uncomplicated asthma, unspecified asthma severity, unspecified whether persistent; Lumbar disc disease Social History Tobacco Use Types Packs/Day Years [...] Info) Description 09/18/2025 10:30 AM EST Follow-Up [facility] [address] [place] [address] Destiny Trinidad MD [address] [place] [address] [email or web address] documented as of this encounter Goals Goal [...] as of this encounter Visit Diagnoses Diagnosis Morbid obesity- Primary Uncomplicated asthma, unspecified asthma severity, unspecified whether persistent Lumbar disc disease Other and unspecified disc disorder of lumbar region documented in this encounter Additional Health Concerns Assessment Noted Time PHQ-9 Depression Total Score: 5 12/05/19 25 3:38 PM EST PHQ-2 Depression Total Score: 0 12/05/19 25 3:38 PM EST documented as of this encounter Care Teams Case Manager Specialist Relationship Specialty Start Date End Date Destiny Trinidad MD [address] [place] [address] [email or web address] PCP - General Family Medicine 06/11/20 documented as of this encounter Additional Source Comments The information contained in this document represents components of the legal health record. It is not the complete legal health record.[facility]
--- OUTSIDE RECORDS SUMMARY | 2025-08-15 10:27 | XMS_ITS | Encounter Summary ---
Author Organization [facility] Address [address] [place] [address] Phone Care Team Providers Care Dining Room Attendant Name Role Phone Pcp, Unknown Primary Care Provider Unavailabl Damion Brice MD Unavailable [phone] Raza Alonso MD Unavailable [phone] Gema Hilton NP Unavailable [phone] Destiny Trinidad MD Unavailable Malik Nolan DO Unavailable Destiny Trinidad MD Primary Care Provider Destiny Trinidad MD Primary Care Provider [phone] Encounter Details Date Type Department Care Team (Latest Contact Info) Description 06/12/2016 Transcribe Orders [facility] [address] [place] [address] Raza Alonso MD [address] [place] [address], [address] [place] [address] [email or web address] Other chest pain (Primary Dx) Social History Tobacco Use Types Packs/Day Years Used Date Smoking Tobacco: Former Sex and Gender Information Value Date Recorded Sex Assigned at Not on file Legal Sex Male 6:46 PM EST Gender Identity Not on file Sexual Orientation Not on file documented as of this encounter Plan of Treatment Upcoming Encounters Date Type Department Care Team ([facility] st Contact Info) Description 09/18/2025 10:30 AM EST Follow-Up [facility] [address] [place] [address] Destiny Trinidad MD [address] [place] [address] [email or web address] documented as of this encounter Visit Diagnoses Diagnosis Other chest pain- Primary documented in this encounter Care Teams Dining Room Attendant Relationship Specialty Start Date End Date Pcp, Unknown PCP - General 06/01/16 05/23/17 Destiny Trinidad MD [address] [place] [address] [email or web address] PCP - General Family Medicine 05/24/17 06/10/20 Destiny Trinidad MD [address] [place] [address] [email or web address] PCP - General Family Medicine 06/11/20 Damion Maynard MD [address] [place] [address] [address] [place] [address] Historical LMR Provider 05/01/17 7 Raza Alonso MD [address] [place] [address] [address] [place] [address] [email or web address] Historical LMR Provider 05/01/17 05/23/17 Gema Hilton NP [address] [place] [address] Historical LMR Provider 05/01/17 8 7 Destiny Trinidad MD [address] [place] [address] [email or web address] Historical LMR Provider 05/01/17 8 Malik Nolan DO [address] [address] Historical LMR Provider 05/01/17 8 7 documented as of this encounter Additional Source Comments The information contained in this document represents components of the legal health record. It is not the complete legal health record.[facility]
== END 2025-08-15 08:24 | disposition home or self-care (01) ==
LOC: HO.LNP 08:23
PROVIDERS: PCP Family Medicine; Visit Provider Student in an Organized Health Care Education/Training Program
DX: L60.3 Nail dystrophy (principal); B35.1 Tinea unguium; L60.2 Onychogryphosis; G62.9 Polyneuropathy, unspecified; I83.93 Asymptomatic varicose veins of bilateral lower extremities; I73.9 Peripheral vascular disease, unspecified
CPT/HCPCS: 87101; 87220; 88304; 88312

== ENCOUNTER 2025-08-22 14:22 | Outpatient (REF) | payer MEDICARE, MEDICAID, SELFPAY ==
--- OUTSIDE RECORDS SUMMARY | 2025-08-20 04:45 | XMS_ITS | Continuity of Care Document ---
Author Organization [facility] Address [address] [place] [address] Dr [address] [place] [address] Phone Care Team Providers Care Boatbuilder Apprentice Wood Name Role Phone Trino STARKEY, ARMAAN, Severo PALACIOS Unavailable U navailable Procedures Procedure Date Office/Oupt E&M New Pt 45 Mins- CT & [place] Duplex Scan-extrem Veins; Comp- CT & [place] Advance Directives Directive Yes / No Effective Date File Name No Information Encounters Encounter Description Practice Location Reason(s) For Visit Diagnoses Date Provider Providers Copied on Encounter Office/Oupt E&M New Pt 45 Mins- CT & [place] [facility], [address] [place] [address] Dr Galeano [address]onda [place], [id number], tel:[phone] [facility] Essential (primary) hypertensionVen ous insufficiency (chronic) (peripheral)Lym phedema, not elsewhere classifiedDisor nikki of pigmentation, unspecifiedHere ditary lymphedemaCramp and spasmLocalized edemaChronic venous hypertension (idiopathic) without complications of bilateral lower extremityRestle ss legs syndromeObesity , class 3Obesity, Class 3 Nov- 5 Trino STARKEY, ARMAAN, SUZANNE Elkins. [facility], [facility] [address], [place], [place], [id number] , [place]. tel:[phone] [facility], [address] [place] [address] Dr Galeano [address]onda [place], [id number], tel:[phone] [facility] [place] [facility] [place] Chronic venous hypertension (idiopathic) with other complications of bilateral lower extremity 5 Trino STARKEY, ARMAAN, SUZANNE Elkins. [address] [facility], [address], [place], [id number] , . tel:[phone] Referring Provider: Severo Jameson MD, ARMAAN, SUZANNE, [address] [facility] [address], [place], [address] . tel:[phone] Family History Family Member Type Diagnosis Age At Onset No Information Payers Payer name Insurance type Covered libertarian ID Authoriza tion(s) [facility] AARP Medic are Complete CI [id number] Medical Assistance [facility] [id number] Social History Type Description Quantity Date Captured Comments Alcohol Use Details Unknown Caffeine Use Details Unknown Tobacco Use Status Current non-smoker Smoking Status Never Smoker Non-Smoking Tobacco Use Details : No Details Available : No Details Available Sex Male Vital Signs Date / Time: Height Weight BMI Pulse Rate Blood Pressure Temperature Respiratory Rate Body Surface Area Head Circumference Head Circ. Percentile Wt./Nick. Percentile BMI percentile Pulse Ox Inhaled Ox 154.220 kg (340.00 lbs) 50.4 2 kg/m eter (2) 142/88 mm[Hg] Chief Complaint And Reason For Visit No Information Reason For Referral Reason For Referral No Information Plan Of Treatment Date Type Action Status Goal Diet education completed Referral Ordered: Weight management: Referral to physician timeframe: 3 Months (related to Body mass index (BMI) 50-59.9 , adult) ordered Appointment Jan Villarreal BOOKED Appointment Jan Villarreal BOOKED Appointment Jan Villarreal BOOKED Appointment Jan Villarreal BOOKED Appointment Jan Villarreal BOOKED Appointment Jan Villarreal BOOKED Appointment Jan Villarreal BOOKED Appointment Jan Villarreal BOOKED Appointment Jan Villarreal BOOKED Appointment Jan Villarreal BOOKED Appointment aJn Villarreal BOOKED History Of Present Illness Encounter Date Complaint History Of Prese nt Illness No Information Functional Status Date Functional Assessmen t No Information Instructions Date Instruction Additional Infor mation Diet education Related to Body mass index (BMI) 50-59.9 , adult Giving Encouragement to exercise Related to Body mass index (BMI) 50-59.9 , adult Lifestyle education Related to B taryn mass index (BMI) 50-59.9 , adult Patient education booklet given Related to Chronic venous hypertension (idiopathic) without complications of bilateral lower extremity Pre and post instruc tions reviewed and provided Related to Chronic venous hypertension (idiopathic) without complications of bilateral lower extremity Assessments Type Assessment Date No Information Patient Care Teams Name Effective Dates (start - stop) Status Members No Information
[2025-08-22 16:43] LABS: PSA,Total (Free>4and<10) 0.60 ng/mL (0.00-4.00)
--- OUTSIDE RECORDS SUMMARY | 2025-08-22 17:32 | XMS_ITS | Patient Health Record ---
Author Organization [facility] Address [address] [place] [address] [place] [id number] Care Team Providers Care Cigar Tobacco Processing Supervisor Name Role Phone SHIRA DOUGLAS MD Primary Care Provider Unav ailable JAVIDPAYTON IKE Unavailable [phone] Allergies Allergen (clinical drug ingredient) Drug/Non Drug [...] Status Risk Notes Problem Adverse drug effect (17436225) Adverse Effect Of Drug (995.20) Active confirmed Plan Of Treatment No Information Insurance Providers Payer Name Payer Address Payer Phone Subscriber Number Group Number Insured Name Patient Relationship to Insured Coverage Start Date Coverage End Date MEDICARE [address] R[place] [address] [id number] Rhina clarker Jan Self - patient is the insured [facility] [address] [address] [place] [address] [id number] Rhina jovel Jan Self - patient is the insured Medical (General) History Medical History History ICD Code Esophageal reflux spinal stenosis diabetes mallitus Edema blood clots Surgical History Surgery Date(Month/Year) gastric bypass 2003 Hospitalization History Reason Date(Month/Year) medication reaction 2011
--- OUTSIDE RECORDS SUMMARY | 2025-08-22 17:32 | XMS_ITS | Encounter Summary ---
Author Organization [facility] Address [address] [place] [address] Phone Care Team Providers Care Maxillofacial Pathology Name Role Phone Destiny Trinidad MD Primary Care Provider [phone] Reason for Referral * Consultation (Within 2 weeks) - New Request Specialty Diagnoses / Procedures Referred By Contac t Referred To Contact Diagnoses Nail disorder, unspecified Destiny Trinidad MD [address] [place] [address] Phone: tel: fax: [email or web address] Referral ID Status Reason Start Date Expiration Date V isits Requested Visits Authorized [id number] New Request 08/09/2025 08/09/2026 1 1 Encounter Details Date Type Department Care Team (Late st Contact Info) Description 08/09/2025 Orders Only [facility] [address] [place] [address] Darcy Coles [place] [address] [place] [address] [email or web address] Nail disorder, unspecified (Primary Dx) Social History [...] Upcoming Encounters Date Type Department Care Team ([facility] st Contact Info) Description 09/18/2025 10:30 AM EST Follow-Up [facility] [address] [place] [address] Destiny Trinidad MD [address] [place] [address] [email or web address] Scheduled Referrals Name Type Priority Associated Diagnoses [...] documented as of this encounter Care Teams Maxillofacial Pathology Relationship Specialty Start Date End Date Destiny Trinidad MD [address] [place] [address] [email or web address] PCP - General Family Medicine 06/11/20 documented as of this encounter Additional Source Comments The information contained in this document represents components of the legal health record. It is not the complete legal health record.[facility]
--- OUTSIDE RECORDS SUMMARY | 2025-08-22 17:32 | XMS_ITS | Encounter Summary ---
Author Organization [facility] Address [address] [place] [address] Phone Care Team Providers Care Calenderer Name Role Phone Pcp, Unknown Primary Care Provider Unavailabl Damion Brice MD Unavailable [phone] Raza Alonso MD Unavailable [phone] Gema Hilton NP Unavailable Destiny Trinidad MD Unavailable [phone] Malik Nolan DO Unavailable Destiny Trinidad MD Primary Care Provider [phone] Destiny Trinidad MD Primary Care Provider Encounter Details Date Type Department Care Team (Latest Contact Info) Description 06/12/2016 Transcribe Orders [facility] [address] [place] [address] Raza Alonso MD [address] [place] [address], [address] [place] [address] [email or web address] Other chest pain (Primary Dx) Social History Tobacco Use Types Packs/Day Years Used Date Smoking Tobacco: Former Sex and Gender Information Value Date Recorded Sex Assigned at Not on file Legal Sex Male 6:46 PM EST Gender Identity Not on file Sexual Orientation Not on file documented as of this encounter Plan of Treatment Upcoming Encounters Date Type Department Care Team ([facility] st Contact Info) Description 09/18/2025 10:30 AM EST Follow-Up [facility] [address] [place] [address] Destiny Trinidad MD [address] [place] [address] [email or web address] documented as of this encounter Visit Diagnoses Diagnosis Other chest pain- Primary documented in this encounter Care Teams Calenderer Relationship Specialty Start Date End Date Pcp, Unknown PCP - General 06/01/16 05/23/17 Destiny Trinidad MD [address] [place] [address] [email or web address] PCP - General Family Medicine 05/24/17 06/10/20 Destiny Trinidad MD [address] [place] [address] [email or web address] PCP - General Family Medicine 06/11/20 Damion Maynard MD [address] [place] [address] [address] [place] [address] Historical LMR Provider 05/01/17 7 Raza Alonso MD [address] [place] [address] [address] [place] [address] [email or web address] Historical LMR Provider 05/01/17 05/23/17 Gema Hilton NP [address] [place] [address] Historical LMR Provider 05/01/17 8 7 Destiny Trinidad MD [address] [place] [address] [email or web address] Historical LMR Provider 05/01/17 8 Malik Nolan DO [address] [address] Historical LMR Provider 05/01/17 8 7 documented as of this encounter Additional Source Comments The information contained in this document represents components of the legal health record. It is not the complete legal health record.[facility]
--- OUTSIDE RECORDS SUMMARY | 2025-08-22 17:32 | XMS_ITS | Encounter Summary ---
Author Organization [facility] Address [address] [place] [address] Care Team Providers Care Door Tender Name Role Phone Destiny Trinidad MD Primary Care Provider [phone] Steven Ch MD Unavailable [phone] Encounter Details Date Type Department Care Team (Late st Contact Info) Description 09/24/2021 Prep for Surgery [facility] [address] [place] [phone] Nav Simmons PA-C [address] [place] [address] Preop examination (Primary Dx) Social History Tobacco [...] examination documented in this encounter Care Teams Door Tender Relationship Specialty Start Date End Date Destiny Trinidad MD [address] [address] PCP - General 09/25/21 Steven Ch MD [address] [place] [address] 3rd [place] [address] Instrumentation And Controls Designer Cardiovascular Disease 09/25/21 documented as of this encounter
--- OUTSIDE RECORDS SUMMARY | 2025-08-22 17:32 | XMS_ITS | Clinical Summary ---
Author Organization [facility] Address [address] [place] [address] Phone Care Team Providers Care Mail Caller Name Role Phone Destiny Trinidad MD Primary Care Provider [phone] Allergies Active Allergy Reactions Criticality Noted Date [...] Active ferrous sulfate 325 mg (65 mg takotna iron) tablet Take 1 tablet (325 mg [...] (for a Quick Reference List of common [facility] diagnoses and requirements, click here: TMP) 2019 [facility] Consider billing: DX: Morbid Obesity/E66.01 (HCC 22) [...] or specific plan for committing suicide [2] [employer]. Diagnostic and Statistical Manual of Mental Disorders, Fifth Edition. [place], [place]: [place] [employer]; 2013. 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 [facility] Osteoarthritis 05/19/2006 Overview (12/08/2014): Degenerative joint [...] Department Care Team Description 08/09/2025 Orders Only [facility] [address] [place] [address] Darcy Coles [place] Nail disorder, unspecified (Primary Dx) 07/26/2025 Orders Only [facility] [address] [place] [address] Elli Leon MA Morbid obesity (Primary Dx); Mobility equipment requested 07/16/2025 Orders Only [facility] [address] [place] [address] Destiny Trinidad MD Morbid obesity (Primary Dx); [...] Formulation 05/25(Deferred: Other - , Ordered By: [id number]) Pneumococcal conjugate PCV13 09/22/2017 Pneumococcal conjugate PCV21 12/05/2024 Pneumococcal polysaccharide PPSV23 09/25,11/24/2012(Deferred: Other - , Ordered By: [id number]) Tdap 12/07/2019,,05/25/2013(Defer red: Other - , Ordered By: [id number]),11/24/2012(Deferred: Other - , Ordered By: [id number]) Zoster recombinant 07/22/2022,05/06/2022 Family History Medical History [...] Info) Description 09/18/2025 10:30 AM EST Follow-Up [facility] [address] [place] [address] Destiny Trinidad MD [address] [place] [address] Health Maintenance Due Date Last Done Comments [...] EST Annual physical exam COMPREHENSIVE METABOLIC PANEL (CMP) Routine 12/05/2024 6:53 PM EST Annual physical exam HM COLONOSCOPY FOR RESULT ENTRY ONLY Routine 10/29/2022 THYROID STIMULATING HORMONE (TSH) Routine 01/02/2022 2:19 PM EDT Morbid obesity HEPATITIS C ANTIBODY, QUALITATIVE Routine 09/07/2019 2:27 PM EST from Last 3 Months or Most Recently Relevant to Health Maintenance Results * (ABNORMAL) Comprehensive metabolic panel (12/05/2024 6:53 PM EST) Sodium 139 135 - 146 mEq/L [facility] Potassium 4.4 3.5 - 5.3 mEq/L [facility] Chloride 104 98 - 107 mEq/L [facility] CO2 26 20 - 31 mEq/L [facility] Anion Gap 9 4 - 14 [facility] Glucose 90 70 - 99 mg/dL [facility] BUN 16 6 - 20 mg/dL [facility] Creatinine 0.8(L) 0.9 - 1.3 mg/dL [facility] GFR >100 >60 mL/min/1.7 3m^2 [facility] Calcium 8.8 8.4 - 10.2 mg/dL [facility] Corrected Calcium 9.0 8.4 - 10.2 mg/dL [facility] Protein, Total 7.2 6.2 - 8.2 g/dL [facility] Alkaline Phosphatase 80 0 - 130 U/L [facility] Albumin 3.8 3.4 - 5.2 g/dL [facility] ALT (SGPT) 10 0 - 40 U/L [facility] AST (SGOT) 19 0 - 33 U/L [facility] Bilirubin, Total 0.5 0.3 - 1.2 mg/dL [facility] Blood 12/05/2024 6:53 PM EST 12/05/2024 6:53 PM EST Narrative Resulting Agency Comment No Destiny Trinidad MD LAB BLOOD BKR ORDERABLES Makenna l Result Performing Organization Address City/[facility]/ZIP Co de Phone Number [facility] [address] [place] [address] * (ABNORMAL) Lipid panel (12/05/2024 6:53 PM EST) Cholesterol 157 <200 mg/dL [facility] Triglycerides 105 <150 mg/dL [facility] Cholesterol, HDL 37(L) >40 mg/dL [facility] LDL Cholesterol, Calculated 99 <129 mg/dL [facility] Cholesterol/HDL Ratio 4.24 <4.96 [facility] Blood 12/05/2024 6:53 PM EST 12/05/2024 6:53 PM EST Narrative Resulting Agency Comment No Destiny Trinidad MD LAB BLOOD BKR ORDERABLES Makenna l Result [facility] [address] [place] [address] * HM COLONOSCOPY FOR RESULT ENTRY ONLY (10/29/2022) Historical Provider HEALTH MAINTENANCE Final Result * TSH (01/02/2022 2:19 PM EDT) TSH 3.11 0.35 - 5.50 uIU/mL [facility] Blood 01/02/2022 2:19 PM EDT 01/02/2022 2:19 PM EDT Destiny Trinidad MD LAB BLOOD BKR ORDERABLES Makenna l Result Performing Organization Address City/[facility]/[place] [address] * Hepatitis C antibody, qualitative (09/07/2019 2:27 PM EST) HepC AB Non Reactive Non Reactive;E quivocal;R eactive [facility] 09/07/2019 2:27 PM EST 09/07/2019 2:27 PM EST Vanita Fernandez NP LAB BLOOD BKR ORDERABLES Edited Result - Final Performing Organization Address City/[facility] [place] [place] [address] from Last 3 Months or Most Recently Relevant to Health Maintenance Insurance [employer] [place] [address] [facility] [employer] RE[employer]EMENT [employer] MEDICARE REPLACEMENT MEDICARE REPLACEMENT MEDICARE REPLACEMENT [facility] RE[employer]EMENT [employer] [place] [address] [employer] REPLACEMENT [facility] MEDICARE PART [place] [address] Care Teams Mail Caller Relationship Specialty Start Date End Date Destiny Trinidad MD [address] [place] [address] [email or web address] PCP - General Family Medicine 06/11/20 Additional Source Comments The information contained in this document represents components of the legal health record. It is not the complete legal health record.[facility]
--- OUTSIDE RECORDS SUMMARY | 2025-08-22 17:32 | XMS_ITS | Encounter Summary ---
Author Organization [facility] Address [address] [place] [address] Care Team Providers Care Operations Forester Name Role Phone Damion Maynard MD Primary Care Provider U Destiny Dewey MD Primary Care Provider [phone] Encounter Details Date Type Department Care Team (Late st Contact Info) Description 08/19/2016 Telephone [facility] General Vascular Surgery [address] [facility] [address] [place] [phone] Shira Meyers NP Social History Tobacco Use [...] on filedocumented in this encounter Care Teams Operations Forester Relationship Specialty Start Date End Date Damion Maynard MD PCP - General Family Medicine 05/20/16 12/21/17 Destiny Trinidad MD [facility] [address] [place] [address] PCP - General Family Medicine 12/22/17 documented as of this encounter
--- OUTSIDE RECORDS SUMMARY | 2025-08-22 17:32 | XMS_ITS | Encounter Summary ---
Author Organization [facility] Address [address] [place] [address] Care Team Providers Care Lease Administrator Name Role Phone Damion Maynard MD Primary Care Provider U Destiny Dewey MD Primary Care Provider [phone] Reason for Visit * Reason Comments Unna Boot Application Encounter Details Date Type Department Care Team (Late st Contact Info) Description 03/30/2017 Telephone [facility] General Surgery [address] [facility] [address] [place] [address] Shira Meyers NP Unna Boot Application Social [...] week on schedule0 Please call to advise [phone] documented in this encounter Plan of Treatment Not on file documented as of this encounter Visit Diagnoses Not on filedocumented in this encounter Care Teams Lease Administrator Relationship Specialty Start Date End Date Damion Maynard MD PCP - General Family Medicine 05/20/16 12/21/17 Destiny Trinidad MD [facility] [address] [place] [address] PCP - General Family Medicine 12/22/17 documented as of this encounter
--- OUTSIDE RECORDS SUMMARY | 2025-08-22 17:32 | XMS_ITS | Encounter Summary ---
Author Organization [facility] Address [address] [place] [address] Care Team Providers Care Bobbin Hauler Name Role Phone Damino Maynard MD Primary Care Provider U Destiny Dewey MD Primary Care Provider [phone] Reason for Visit * Reason Comments Appointment tomorrow Unna Boot Application Encounter Details Date Type Department Care Team (Late st Contact Info) Description 02/16/2017 Telephone [facility] General Vascular Surgery [address] [facility] [address] [place] [address] Shira Meyers NP Appointment (tomorrow); Unna Boot [...] he is seeing a doctor at the [facility] in [place] at 10:[address] - a Dr. Zelaya-who is going to want to talk to Shira Meyers about his situation. So patient is asking to be seen in time tomorrow to get to his 10 30 appointment in [place] He will be cancelling his other [place] appointment with Podiatry at 8:30. Please advise [phone] documented in this encounter Plan of Treatment Not on file documented as of this encounter Visit Diagnoses Not on filedocumented in this encounter Care Teams Bobbin Hauler Relationship Specialty Start Date End Date Damion Maynard MD PCP - General Family Medicine 05/20/16 12/21/17 Destiny Trinidad MD [facility] [address] [place] [address] PCP - General Family Medicine 12/22/17 documented as of this encounter
--- OUTSIDE RECORDS SUMMARY | 2025-08-22 17:32 | XMS_ITS | Encounter Summary ---
Author Organization [facility] Address [address] [place] [address] Phone Care Team Providers Care Structural Manager Name Role Phone Destiny Trinidad MD Primary Care Provider Reason for Visit * Reason Comments Med Change Request Encounter Details Date Type Department Care Team (Late st Contact Info) Description 04/19/2025 Meli [facility] [address] [place], [place] [address] Adilia Mack CNP [address] [place] [address] [email or web address] Change Request Social History Tobacco Use [...] Info) Description 09/18/2025 10:30 AM EST Follow-Up [facility] [address] [place] [address] Destiny Trinidad MD [address] [place] [address] [email or web address] documented as of this encounter Goals Goal [...] documented as of this encounter Care Teams Structural Manager Relationship Specialty Start Date End Date Destiny Trinidad MD [address] [place] [address] [email or web address] PCP - General Family Medicine 06/11/20 documented as of this encounter Additional Source Comments The information contained in this document represents components of the legal health record. It is not the complete legal health record.[facility]
--- OUTSIDE RECORDS SUMMARY | 2025-08-22 17:32 | XMS_ITS | Clinical Summary ---
Author Organization Formerly [facility] Address [address] [place] [address] Care Team Providers Care Scow Hand Name Role Phone Destiny Trinidad MD Primary Care Provider [phone] Steven Ch MD Unavailable [phone] Allergies Active Allergy Reactions Criticality Noted [...] (three) times a day. Active nystatin (MYCOSTATIN) 210129 UNIT/GM cream Apply topically 2 (two) times [...] Dates Next Due Covid-19 MRNA Vaccine - Zimbra 12+ (Purple Cap) 10/13/2021 Family History Medical [...] complete [place] [id number] [facility] MEDICARE [facility] Care Teams Scow Hand Relationship Specialty Start Date End Date Destiny Trinidad MD [address] [address] PCP - General 09/25/21 Steven Ch MD [address] [place] [address] [address] [place] [address] [employer] Cardiovascular Disease 09/25/21
--- OUTSIDE RECORDS SUMMARY | 2025-08-22 17:33 | XMS_ITS | Continuity of Care Document ---
Author Organization [facility] Address [address] [place] [address] Care Team Providers Care Signal Timer Name Role Phone Destiny Trinidad MD Primary Care Provider [phone] Encounters Date Type Department Care Team Description 03/05/2021 Travel 03/05/2021 11:15 AM EDT Office Visit [facility] [place] [facility] [address] [place] [phone] Stacey Barber NP Chronic ulcer of right leg, limited to breakdown of skin (Primary Dx) 02/25/2021 Travel 02/25/2021 11:20 AM EDT Office Visit [facility] [place] [facility] [address] [place] [phone] Stacey Barber NP Chronic ulcer of right leg, limited to breakdown of skin (Primary Dx) 02/17/2021 Travel 02/17/2021 11:45 AM EDT Office Visit [facility] [place] [facility] [address] [place] [phone] Stacey Barber NP Chronic ulcer of right leg, limited to breakdown of skin (Primary Dx) 02/11/2021 Travel 02/11/2021 12:30 PM EDT Office Visit [facility] [place] [facility] [address] [place] [phone] Stacey Barber NP Chronic ulcer of right leg, limited to breakdown of skin (Primary Dx) 02/04/2021 Travel 02/04/2021 10:45 AM EDT Office Visit [facility] [place] [facility] [address] [place] [phone] Stacey Barber NP Chronic ulcer of right leg, limited to breakdown of skin (Primary Dx) 01/29/2021 Travel 01/29/2021 9:00 AM EDT Office Visit [facility] [place] [facility] [address] [place] [phone] Stacey Barber NP Chronic ulcer of right leg, limited to breakdown of skin (Primary Dx) 01/21/2021 Travel 01/21/2021 1:00 PM EDT Office Visit [facility] [place] [facility] [address] [place] [phone] Stacey Barber NP Chronic ulcer of right leg, limited to breakdown of skin (Primary Dx) 01/14/2021 Travel 01/14/2021 1:00 PM EDT Office Visit [facility] [place] [facility] [address] [place] [phone] Stacey Barber NP Chronic ulcer of right leg, limited to breakdown of skin (Primary Dx) 01/08/2021 11:15 AM EDT Office Visit [facility], [place] [facility] [address] [place] [phone] Stacey Barber NP Chronic ulcer of left leg, limited to breakdown of skin (Primary Dx) 01/03/2021 Travel 01/03/2021 11:00 AM EDT Office Visit [facility] [place] [facility] [address] [place] [phone] Shira Meyers NP Ulcer of right lower extremity, unspecified ulcer stage (Primary Dx); Lymphedema; Encounter for change or removal of nonsurgical wound dressing 12/24/2020 Travel 12/24/2020 1:00 PM EST Office Visit [facility] [place] [facility] [address] [facility] [address] [place] [address] Stacey Barber NP Chronic ulcer of lower extremity, right, with unspecified severity (Primary Dx) 12/10/2020 Travel 12/10/2020 1:15 PM EST Office Visit [facility] [place] [facility] [address] [facility] [address] [place] [address] Stacey Barber NP Ulcer of right lower extremity, unspecified ulcer stage (Primary Dx) 12/05/2020 Travel 12/05/2020 1:00 PM EST Office Visit [facility] [place] [facility] [address] [facility] [address] [place] [address] Joshua Hendrix MD Chronic ulcer of lower extremity, right, with unspecified severity (Primary Dx) 11/21/2020 Travel 11/21/2020 1:00 PM EST Office Visit [facility], [place] [facility] [address] [facility] [address] [place] [address] Stacey Barber NP Chronic ulcer of lower extremity, right, with unspecified severity (Primary Dx); Venous stasis of lower extremity 11/12/2020 Travel 11/12/2020 1:00 PM EST Office Visit [facility], [place] [facility] [address] [facility] [address] [place] [address] Stacey Barber NP Ulcer of right lower extremity, unspecified ulcer stage (Primary Dx) 10/29/2020 Travel 10/29/2020 2:40 PM EST Office Visit [facility] [place] [facility] [address] [facility] [address] [place] [address] Shira Meyers NP Ulcer of right lower extremity, unspecified ulcer stage (Primary Dx); Lymphedema 03/04/2020 Telephone [facility] [place] [facility] [address] [facility] [address] [place] [address] Shira Meyers NP No Show 03/04/2020 Telephone [facility] [place] [facility] [address] [facility] [address] [place] [address] St Onge, Shira, URANIUM PROCESSING SUPERVISOR Equipment/supplies 01/05/2020 9:20 AM EDT Office Visit [facility], [place] [facility] [address] [facility] [address] [place] [address] St Onge, Shira, URANIUM PROCESSING SUPERVISOR Ulcer of right lower extremity, unspecified ulcer stage (Primary Dx); Lymphedema 12/29/2019 Travel 12/29/2019 9:40 AM EDT Office Visit [facility] [place] [facility] [address] [facility] [address] [place] [address] St Onge, Shira, URANIUM PROCESSING SUPERVISOR Ulcer of right lower extremity, unspecified ulcer stage (Primary Dx); Ulcer of left lower extremity, unspecified ulcer stage 12/22/2019 9:20 AM EST Nurse Visit [facility] [place] [facility] [address] [facility] [address] [place] [address] Shashank Shetty LPN Edema, unspecified type (Primary Dx); Encounter for change or removal of nonsurgical wound dressing 12/15/2019 8:40 AM EST Office Visit [facility] [place] [facility] [address] [place] [address] [address] [place] [address] St Onge, Shira, URANIUM PROCESSING SUPERVISOR Ulcer of right lower extremity, unspecified ulcer stage (Primary Dx); Ulcer of left lower extremity, unspecified ulcer stage; Lymphedema of both lower extremities 12/06/2019 9:00 AM EST Office Visit [facility], [place] [facility] [address] [phone] St Onge, Shira, URANIUM PROCESSING SUPERVISOR Ulcer of right lower extremity, unspecified ulcer stage (Primary Dx); Ulcer of left lower extremity, unspecified ulcer stage; Lymphedema of both lower extremities 11/29/2019 8:40 AM EST Office Visit [facility] [place] [facility] [address] [facility] [address] [place] [address] St Onge, Shira, URANIUM PROCESSING SUPERVISOR Ulcer of right lower extremity, unspecified ulcer stage (Primary Dx); Ulcer of left lower extremity, unspecified ulcer stage; Lymphedema of both lower extremities 11/22/2019 8:40 AM EST Office Visit [facility] [place] [facility] [address] [facility] [address] [place] [address] St Onge, Shira, URANIUM PROCESSING SUPERVISOR Ulcer of right lower extremity, unspecified ulcer stage (Primary Dx); Ulcer of left lower extremity, unspecified ulcer stage; Lymphedema of both lower extremities 11/15/2019 8:40 AM EST Office Visit [facility] [place] [facility] [address] [facility] [address] [place] [address] St Onge, Shira, URANIUM PROCESSING SUPERVISOR Ulcer of right lower extremity, unspecified ulcer stage (Primary Dx); Ulcer of left lower extremity, unspecified ulcer stage; Lymphedema of both lower extremities 11/08/2019 8:40 AM EST Office Visit [facility], [place] [facility] [address] [facility] [address] [place] [address] St Onge, Shira, URANIUM PROCESSING SUPERVISOR Ulcer of right lower extremity, unspecified ulcer stage (Primary Dx); Ulcer of left lower extremity, unspecified ulcer stage 11/01/2019 8:00 AM EST Office Visit [facility], [place] [facility] [address] [address] St Onge, Shira, URANIUM PROCESSING SUPERVISOR Ulcer of right lower extremity, unspecified ulcer stage (Primary Dx) 10/27/2019 8:40 AM EST Office Visit [facility], [place] [facility] [address] [facility] [address] [place] [address] St Onge, Shira, URANIUM PROCESSING SUPERVISOR Ulcer of right lower extremity, unspecified ulcer stage (Primary Dx); Lymphedema of both lower extremities 10/20/2019 2:00 PM EST Nurse Visit [facility], [place] [facility] [address] [address] Orville Gandhi LPN Edema, unspecified type (Primary Dx); Encounter for change or removal of nonsurgical wound dressing 10/12/2019 10:00 AM EST Office Visit [facility], [place] [facility] [address] [facility] [address] [place] [address] Joshua Hendrix MD Venous stasis of lower extremity (Primary Dx) 10/06/2019 11:00 AM EST Office Visit [facility], [place] [facility] [address] [facility] [address] [place] [address] St Onge, Shira, URANIUM PROCESSING SUPERVISOR Ulcer of right lower extremity, unspecified ulcer stage (Primary Dx) 10/04/2019 Telephone [facility], [place] [facility] [address] [facility] [address] [place] [address] Joshua Hendrix MD Post Op (wound care) 09/29/2019 Surgery/Major Procedure [facility], [place] [facility] [address] [place] [phone] Joshua Hendrix MD 09/19/2019 2:20 PM EST Office Visit [facility], [place] [facility] [address] [place] [address] [address] [place] [address] St Onge, Shira, URANIUM PROCESSING SUPERVISOR Ulcer of right lower extremity, unspecified ulcer stage (Primary Dx); Lymphedema of both lower extremities 09/07/2019 Pre-Op FAM PRAC UNSPECIFIED Provider, Unknown 09/05/2019 10:00 AM EST Consult (Initial) [facility] [place] [facility] [address] [address] Joshua Hendrix MD Venous stasis of lower extremity (Primary Dx) 08/30/2019 9:20 AM EST Office Visit [facility], [place] [facility] [address] [facility] [address] [place] [address] St Onge, Shira, URANIUM PROCESSING SUPERVISOR Ulcer of right lower extremity, unspecified ulcer stage (Primary Dx); Lymphedema of both lower extremities 08/23/2019 9:20 AM EST Office Visit [facility], [place] [facility] [address] [address] St Onge, Shira, URANIUM PROCESSING SUPERVISOR Ulcer of right lower extremity, unspecified ulcer stage (Primary Dx); Lymphedema of both lower extremities 08/16/2019 9:20 AM EDT Office Visit [facility], [place] [facility] [address] [facility] [address] [place] [address] St Onge, Shira, URANIUM PROCESSING SUPERVISOR Ulcer of right lower extremity, unspecified ulcer stage (Primary Dx); Lymphedema of both lower extremities 08/09/2019 8:40 AM EDT Office Visit [facility], [place] [facility] [address] [facility] [address] [place] [address] St Onge, Shira, URANIUM PROCESSING SUPERVISOR Ulcer of right lower extremity, unspecified ulcer stage (Primary Dx); Lymphedema of both lower extremities 08/02/2019 9:20 AM EDT Office Visit [facility], [place] [facility] [address] [facility] [address] [place] [address] St Onge, Shira, URANIUM PROCESSING SUPERVISOR Ulcer of right lower extremity, unspecified ulcer stage (Primary Dx); Lymphedema of both lower extremities 07/25/2019 9:00 AM EDT Office Visit [facility], [place] [facility] [address] [facility] [address] [place] [address] Nav Staples MD Varicose veins of left lower extremity with pain (Primary Dx); Venous stasis ulcer of calf with bone involvement without evidence of necrosis with varicose veins, unspecified laterality; Varicose veins of right lower extremity with ulcer of calf with fat layer exposed 07/20/2019 9:00 AM EDT Nurse Visit [facility], [place] [facility] [address] [facility] [address] [place] [address] Orville Gandhi LPN Edema, unspecified type (Primary Dx); Encounter for change or removal of nonsurgical wound dressing 07/14/2019 9:20 AM EDT Nurse Visit [facility], [place] [facility] [address] [facility] [address] [place] [address] Shashank Shetty LPN Edema, unspecified type (Primary Dx); Encounter for change or removal of nonsurgical wound dressing 07/07/2019 9:40 AM EDT Office Visit [facility], [place] [facility] [address] [facility] [address] [place] [address] St Onge, Shira, URANIUM PROCESSING SUPERVISOR Ulcer of right lower extremity, unspecified ulcer stage (Primary Dx); Lymphedema of both lower extremities 07/04/2019 9:00 AM EDT Office Visit [facility], [place] [facility] [address] [facility] [address] [place] [address] Shira Meyers NP Ulcer of right lower extremity, unspecified ulcer stage (Primary Dx); Lymphedema of both lower extremities 06/27/2019 Telephone [facility], [place] [facility] [address] [facility] [address] [place] [address] Shira Meyers NP Discussion With Provider; Wound Care 04/17/2019 9:20 AM EDT Nurse Visit [facility], [place] [facility] [address] [facility] [address] [place] [address] Lymphedema (Primary Dx) 04/10/2019 9:20 AM EDT Office Visit [facility], [place] [facility] [address] [facility] [address] [place] [address] Nolvia Elkins NP Lymphedema of both lower extremities (Primary Dx); Ulcer of right lower extremity, unspecified ulcer stage 04/05/2019 8:30 AM EDT Office Visit [facility], [place] [facility] [address] [facility] [address] [place] [address] Theo Martinez MD Lymphedema of both lower extremities (Primary Dx); Venous ulcer 03/29/2019 9:15 AM EDT Office Visit [facility] [address] [place] [phone] Nav Amato MD Trigger finger, right ring finger (Primary Dx) 03/21/2019 10:45 AM EDT Office Visit [facility] [address] [place] [phone] Renae Turner PA S/P trigger finger release (Primary Dx); Tenosynovitis of finger 11/18/2018 8:00 AM EST Office Visit [facility] [address] [place] [phone] Jeffery Manuel NP Trigger ring finger of left hand (Primary Dx) 11/08/2018 8:00 AM EST Minor Procedure/Test [facility] [address] [place] [phone] Nav Amato MD Trigger ring finger of left hand (Primary Dx) 10/10/2018 9:15 AM EST Office Visit [facility] [address] [place] [phone] Renae Turner PA S/P trigger finger release (Primary Dx); Visit for suture removal; Trigger finger, left ring finger 09/27/2018 9:00 AM EST Minor Procedure/Test [facility] [address] [place] [phone] Nav Amato MD Trigger finger, right ring finger (Primary Dx) 09/19/2018 3:45 PM EST Consult (Initial) [facility] [address] [place] [phone] Ivan Rueda MD Lumbar facet arthropathy (Primary Dx); Spinal stenosis of lumbar region with neurogenic claudication 08/29/2018 4:00 PM EST Consult (Initial) [facility] [address] [place] [phone] Renae Turner PA Trigger finger, right ring finger (Primary Dx) 08/15/2018 11:00 AM EDT Consult (Initial) [facility] [address] [place] [phone] Savage Jara MD Spinal stenosis of lumbar region with neurogenic claudication (Primary Dx); Facet arthritis of lumbar region (HCC); Foraminal stenosis of lumbar region; Low back pain of over 3 months duration; Lumbosacral stenosis with neurogenic claudication (HCC); BMI 50.0-59.9, adult 06/01/2018 9:40 AM EDT Office Visit [facility], [place] [facility] [address] [facility] [address] [place] [address] St Onge, Shira, URANIUM PROCESSING SUPERVISOR Lymphedema of both lower extremities (Primary Dx); Ulcers of both lower legs, limited to breakdown of skin 05/25/2018 9:40 AM EDT Office Visit [facility], [place] [facility] [address] [facility] [address] [place] [address] St Onge, Shira, URANIUM PROCESSING SUPERVISOR Ulcer of left lower extremity, unspecified ulcer stage (Primary Dx); Lymphedema of both lower extremities 05/18/2018 9:00 AM EDT Nurse Visit [facility], [place] [facility] [address] [place] [phone] Shetty, Shashank, DIGITAL CONTENT SPECIALIST Edema, unspecified type (Primary Dx); Encounter for change or removal of nonsurgical wound dressing 05/11/2018 9:00 AM EDT Office Visit [facility], [place] [facility] [address] [place] [address] [address] [place] [address] St Onge, Shira, URANIUM PROCESSING SUPERVISOR Lymphedema of both lower extremities (Primary Dx); Ulcers of both lower legs, limited to breakdown of skin 05/04/2018 9:00 AM EDT Nurse Visit [facility], [place] [facility] [address] [place] [phone] Gandhi, Orville, DIGITAL CONTENT SPECIALIST Edema, unspecified type (Primary Dx); Encounter for change or removal of nonsurgical wound dressing 04/27/2018 9:40 AM EDT Nurse Visit [facility], [place] [facility] [address] [place] [phone] Shetty, Shashank, DIGITAL CONTENT SPECIALIST Edema, unspecified type (Primary Dx); Encounter for change or removal of nonsurgical wound dressing 04/13/2018 9:00 AM EDT Office Visit [facility], [place] [facility] [address] [place] [phone] St Onge, Shira, URANIUM PROCESSING SUPERVISOR Ulcers of both lower legs, limited to breakdown of skin (Primary Dx); Lymphedema of both lower extremities 04/13/2018 11:40 AM EDT Minor Procedure/Test [facility] [address] [place] [address] Roger Johnson DPM Atherosclerosis of [place] artery of both lower extremities, with unspecified presence of clinical manifestation (Primary Dx); Onychomycosis; Pain of toes of both feet 04/06/2018 9:40 AM EDT Office Visit [facility], [place] [facility] [address] [address] Shira Meyers, AZRA Lymphedema of both lower extremities (Primary Dx); Ulcers of both lower legs, limited to breakdown of skin 03/30/2018 9:00 AM EDT Nurse Visit [facility], [place] [facility] [address] [place] [phone] Shetty, Shashank, DIGITAL CONTENT SPECIALIST Edema, unspecified type (Primary Dx); Encounter for change or removal of nonsurgical wound dressing 03/23/2018 9:00 AM EDT Nurse Visit [facility], [place] [facility] [address] [place] [phone] Shetty, Shashank, DIGITAL CONTENT SPECIALIST Edema, unspecified type (Primary Dx); Encounter for change or removal of nonsurgical wound dressing 03/16/2018 9:00 AM EDT Nurse Visit [facility], [place] [facility] [address] [place] [phone] Shetty, Shashank, DIGITAL CONTENT SPECIALIST Edema, unspecified type (Primary Dx); Encounter for change or removal of nonsurgical wound dressing 03/02/2018 9:00 AM EDT Nurse Visit [facility], [place] [facility] [address] [place] [phone] Gandhi, Orville, DIGITAL CONTENT SPECIALIST Edema, unspecified type (Primary Dx); Encounter for change or removal of nonsurgical wound dressing 02/23/2018 9:20 AM EDT Nurse Visit [facility], [facility] [address] [place] [phone] St Onge, Shira, URANIUM PROCESSING SUPERVISOR Ulcers of both lower legs, limited to breakdown of skin (Primary Dx); Lymphedema 02/18/2018 10:20 AM EDT Office Visit [facility], [facility] [address] [place] [address] [address] [place] [address] St Onge, Shira, URANIUM PROCESSING SUPERVISOR Ulcers of both lower legs, limited to breakdown of skin (Primary Dx); Lymphedema 01/19/2018 9:30 AM EDT Nurse Visit [facility], [place] [facility] [address] [place] [phone] Gandhi, Orville, DIGITAL CONTENT SPECIALIST Edema, unspecified type (Primary Dx); Encounter for change or removal of nonsurgical wound dressing 01/12/2018 9:00 AM EDT Office Visit [facility], [facility] [address] [place] [phone] St Onge, Shira, URANIUM PROCESSING SUPERVISOR Ulcers of both lower legs, limited to breakdown of skin (Primary Dx); Lymphedema of both lower extremities 01/05/2018 9:00 AM EDT Office Visit [facility], [facility] [address] [place] [phone] St Onge, Shira, URANIUM PROCESSING SUPERVISOR Ulcers of both lower legs, limited to breakdown of skin (Primary Dx); Lymphedema 12/31/2017 11:20 AM EDT Nurse Visit [facility], [facility] [address] [place] [phone] Edema, unspecified type (Primary Dx); Encounter for change or removal of nonsurgical wound dressing 12/22/2017 9:00 AM EST Office Visit [facility] [address] [place] [phone] St Onge, Shira, URANIUM PROCESSING SUPERVISOR Ulcers of both lower legs, limited to breakdown of skin (Primary Dx); Lymphedema 2017 8:20 AM EST Office Visit [facility] [address] [place] [phone] St Onge, Shira, URANIUM PROCESSING SUPERVISOR Ulcers of both lower legs, limited to breakdown of skin (Primary Dx); Lymphedema 12/08/2017 9:00 AM EST Office Visit [facility] [address] [facility] [address] [place] [address] St Onge, Shira, URANIUM PROCESSING SUPERVISOR Ulcers of both lower legs, limited to breakdown of skin (Primary Dx); Lymphedema 12/01/2017 9:00 AM EST Nurse Visit [facility] [address] [facility] [address] [place] [address] [place], Jolene, DIGITAL CONTENT SPECIALIST Edema, unspecified type (Primary Dx); Encounter for change or removal of nonsurgical wound dressing 11/24/2017 9:00 AM EST Nurse Visit [facility], [place] [facility] [address] [place] [phone] Charly Gandhia, DIGITAL CONTENT SPECIALIST Edema, unspecified type (Primary Dx); Encounter for change or removal of nonsurgical wound dressing 11/17/2017 9:00 AM EST Nurse Visit [facility], [place] [facility] [address] [address] Gandhi, Orville, DIGITAL CONTENT SPECIALIST Edema, unspecified type (Primary Dx); Encounter for change or removal of nonsurgical wound dressing 11/10/2017 9:00 AM EST Nurse Visit [facility], [place] [facility] [address] [address] Gandhi Orville, DIGITAL CONTENT SPECIALIST Edema, unspecified type (Primary Dx); Encounter for change or removal of nonsurgical wound dressing 11/02/2017 9:00 AM EST Nurse Visit [facility], [place] [facility] [address] [address] Dov Gandhiyla, DIGITAL CONTENT SPECIALIST Edema, unspecified type (Primary Dx); Encounter for change or removal of nonsurgical wound dressing 10/27/2017 10:40 AM EST Office Visit [facility], [place] [facility] [address] [address] St Onge, Shira, URANIUM PROCESSING SUPERVISOR Ulcers of both lower legs, limited to breakdown of skin (Primary Dx); Lymphedema 10/22/2017 1:00 PM EST Nurse Visit [facility], [place] [facility] [address] [facility] [address] [place] [address] Orville Gandhi, DIGITAL CONTENT SPECIALIST Edema, unspecified type (Primary Dx); Encounter for change or removal of nonsurgical wound dressing 10/19/2017 9:00 AM EST Nurse Visit [facility], [place] [facility] [address] [facility] [address] [place] [address] VerneJolene, DIGITAL CONTENT SPECIALIST Edema, unspecified type (Primary Dx); Encounter for change or removal of nonsurgical wound dressing 10/15/2017 9:00 AM EST Nurse Visit [facility], [place] [facility] [address] [facility] [address] [place] [address] Orville Gandhi, DIGITAL CONTENT SPECIALIST Edema, unspecified type (Primary Dx); Encounter for change or removal of nonsurgical wound dressing 10/12/2017 9:00 AM EST Nurse Visit [facility], [place] [facility] [address] [address] Orville Gandhi, DIGITAL CONTENT SPECIALIST Edema, unspecified type (Primary Dx); Encounter for change or removal of nonsurgical wound dressing 10/07/2017 9:00 AM EST Office Visit [facility], [place] [facility] [address] [facility] [address] [place] [address] St Shira Snow, AZRA Ulcers of both lower legs, limited to breakdown of skin (Primary Dx); Lymphedema 10/05/2017 Telephone [facility] [address] [address] [address] Shira Snow NP Appointment 09/17/2017 8:40 AM EST Office Visit [facility], [place] [facility] [address] [facility] [address] [place] [address] St Shira Snow URANIUM PROCESSING SUPERVISOR Ulcer of left lower extremity, unspecified ulcer stage (Primary Dx); Ulcer of right lower extremity, unspecified ulcer stage; Lymphedema 09/08/2017 9:40 AM EST Nurse Visit [facility], [place] [facility] [address] [facility] [address] [place] [address] Orville Gandhi LPN Edema, unspecified type (Primary Dx); Encounter for change or removal of nonsurgical wound dressing 09/03/2017 1:20 PM EST Office Visit [facility], [place] [facility] [address] [facility] [address] [place] [address] Shira Meyers NP Ulcers of both lower legs, limited to breakdown of skin (Primary Dx); Lymphedema 06/28/2017 9:00 AM EDT Office Visit [facility], [place] [facility] [address] [facility] [address] [place] [address] Shira Meyers NP Ulcer of lower extremity, left, with unspecified severity (Primary Dx); Ulcer of lower extremity, right, with unspecified severity; Lymphedema 06/15/2017 Telephone [facility], [place] [facility] [address] [facility] [address] [place] [address] Shira Meyers NP Wound Care; Equipment/supplies 06/14/2017 9:00 AM EDT Nurse Visit [facility], [place] [facility] [address] [facility] [address] [place] [address] Jolene Castellano LPN Edema, unspecified type (Primary Dx); Encounter for change or removal of nonsurgical wound dressing 06/11/2017 9:00 AM EDT Nurse Visit [facility], [place] [facility] [address] [facility] [address] [place] [address] Edema, unspecified type (Primary Dx); Encounter for change or removal of nonsurgical wound dressing 06/09/2017 10:00 AM EDT Nurse Visit [facility], [place] [facility] [address] [facility] [address] [place] [address] Edema, unspecified type (Primary Dx); Encounter for change or removal of nonsurgical wound dressing 06/07/2017 9:00 AM EDT Nurse Visit [facility], [place] [facility] [address] [facility] [address] [place] [address] Larosee, Jolene, DIGITAL CONTENT SPECIALIST Edema, unspecified type (Primary Dx); Encounter for change or removal of nonsurgical wound dressing 06/02/2017 8:40 AM EDT Office Visit [facility], [place] [facility] [address] [place] [phone] St Onge, Shira, URANIUM PROCESSING SUPERVISOR Ulcers of both lower legs, limited to breakdown of skin (Primary Dx); Lymphedema; Chronic venous insufficiency 05/12/2017 9:20 AM EDT Office Visit [facility], [place] [facility] [address] [place] [phone] St Onge, Shira, URANIUM PROCESSING SUPERVISOR Ulcer of lower extremity, left, with unspecified severity (Primary Dx); Ulcer of lower extremity, right, with unspecified severity; Venous stasis of lower extremity; Lymphedema 05/05/2017 9:20 AM EDT Office Visit [facility], [place] [facility] [address] [place] [phone] [address] Onge, Shira, URANIUM PROCESSING SUPERVISOR Ulcers of both lower legs, limited to breakdown of skin (Primary Dx); Lymphedema 04/28/2017 9:20 AM EDT Office Visit [facility], [place] [facility] [address] [place] [address] [phone] [address] Onge, Shira, URANIUM PROCESSING SUPERVISOR Lymphedema (Primary Dx); Ulcers of both lower legs, limited to breakdown of skin 04/22/2017 8:40 AM EDT Office Visit [facility], [place] [facility] [address] [place] [phone] [address] Onge, Shira, URANIUM PROCESSING SUPERVISOR Lymphedema (Primary Dx); Ulcer of lower extremity, left, with unspecified severity; Ulcer of lower extremity, right, with unspecified severity 04/14/2017 9:20 AM EDT Office Visit [facility], [place] [facility] [address] [place] [address] [phone] [address] Onge, Shira, URANIUM PROCESSING SUPERVISOR Lymphedema (Primary Dx); Ulcers of both lower legs, limited to breakdown of skin; Venous stasis of lower extremity 04/07/2017 9:20 AM EDT Office Visit [facility], [place] [facility] [address] [facility] [address] [place] [address] [address] Onge, Shira, URANIUM PROCESSING SUPERVISOR Lymphedema (Primary Dx); Ulcer of lower extremity, left, with unspecified severity; Ulcer of lower extremity, right, with unspecified severity 03/31/2017 8:00 AM EDT Office Visit [facility], [place] [facility] [address] [facility] [address] [place] [address] [address] Onge, Shira, URANIUM PROCESSING SUPERVISOR Lymphedema (Primary Dx); Ulcers of both lower legs, limited to breakdown of skin; Morbid obesity due to excess calories 03/30/2017 Telephone [facility], [place] [facility] [address] [facility] [address] [place] [address] [address] Onge, Shira, URANIUM PROCESSING SUPERVISOR Unna Boot Application 03/19/2017 Telephone [facility], [place] [facility] [address] [facility] [address] [place] [address] [address] Onge, Shira, URANIUM PROCESSING SUPERVISOR No Show 02/23/2017 Telephone [facility], [place] [facility] [address] [facility] [address] [place] [address] St Onge, Shira, URANIUM PROCESSING SUPERVISOR Unna Boot Application 02/20/2017 Office Visit NON FC SA NON FC [facility], Unknown Provider 02/18/2017 Consult (Initial) NON FC [facility] [address] [place] [address] Juanjose Watson MD 02/17/2017 [facility] NON FC [facility] [address] [place] [address] Tamika Lomax MD 02/17/2017 8:00 AM EDT Office Visit [facility], [place] [facility] [address] [facility] [address] [place] [address] [address] Onge, Shira, URANIUM PROCESSING SUPERVISOR Cellulitis of right lower extremity (Primary Dx) 02/16/2017 Telephone [facility] [address] [facility] 210 [place] [address] [address] Onge, Shira, URANIUM PROCESSING SUPERVISOR Appointment (tomorrow); Unna Boot Application 02/08/2017 10:20 AM EDT Office Visit [facility], [place] [facility] [address] [place] [address] St Onge, Shira, URANIUM PROCESSING SUPERVISOR Lymphedema (Primary Dx); Ulcer of lower extremity, left, with unspecified severity 02/01/2017 8:20 AM EDT Office Visit [facility], [place] [facility] [address] [place] [phone] St Onge, Shira, URANIUM PROCESSING SUPERVISOR Lymphedema (Primary Dx); Ulcer of lower extremity, left, with unspecified severity; Venous stasis of lower extremity 01/28/2017 8:20 AM EDT Office Visit [facility], [place] [facility] [address] [place] [phone] St Onge, Shira, URANIUM PROCESSING SUPERVISOR Lymphedema (Primary Dx); Ulcer of lower extremity, left, with unspecified severity 01/25/2017 1:20 PM EDT Office Visit [facility], [place] [facility] [address] [place] [phone] [address] Onge, Shira, URANIUM PROCESSING SUPERVISOR Lymphedema (Primary Dx); Ulcer of lower extremity, left, with unspecified severity; Ulcer of lower extremity, right, with unspecified severity 01/21/2017 2:30 PM EDT Nurse Visit [facility], [place] [facility] [address] [place] [phone] Stinehart, Anabel, DIGITAL CONTENT SPECIALIST Ulcers of both lower legs (Primary Dx); Edema, unspecified type; Encounter for change or removal of nonsurgical wound dressing 01/18/2017 8:20 AM EDT Office Visit [facility], [place] [facility] [address] [place] [phone] St Onge, Shira, URANIUM PROCESSING SUPERVISOR Lymphedema (Primary Dx); Ulcer of lower extremity, left, with unspecified severity; Ulcer of lower extremity, right, with unspecified severity 01/14/2017 8:20 AM EDT Office Visit [facility], [place] [facility] [address] [place], [place] [address] [address] St Onge, Shira, URANIUM PROCESSING SUPERVISOR Lymphedema (Primary Dx); Ulcer of lower extremity, left, with unspecified severity; Ulcer of lower extremity, right, with unspecified severity; Venous stasis of lower extremity 01/11/2017 11:00 AM EDT Nurse Visit [facility], [place] [facility] [address] [place] [address] [address] [place] [address] Stinehart, Anabel, DIGITAL CONTENT SPECIALIST Edema, unspecified type (Primary Dx); Encounter for change or removal of nonsurgical wound dressing 01/06/2017 9:00 AM EDT Office Visit [facility], [place] [facility] [address] [place] [phone] [address] Onge, Shira, URANIUM PROCESSING SUPERVISOR Lymphedema (Primary Dx); Ulcer of lower extremity, left, with unspecified severity; Ulcer of lower extremity, right, with unspecified severity 12/30/2016 9:00 AM EDT Office Visit [facility], [place] [facility] [address] [place] [phone] [address] Onge, Shira, URANIUM PROCESSING SUPERVISOR Lymphedema (Primary Dx); Ulcer of lower extremity, left, with unspecified severity; Ulcer of lower extremity, right, with unspecified severity 12/23/2016 9:00 AM EST Office Visit [facility], [place] [facility] [address] [place] [phone] [address] Onge, Shira, URANIUM PROCESSING SUPERVISOR Lymphedema (Primary Dx); Ulcer of lower extremity, left, with unspecified severity; Ulcer of lower extremity, right, with unspecified severity 12/16/2016 1:20 PM EST Office Visit [facility], [place] [facility] [address] [place] [phone] St Onge, Shira, URANIUM PROCESSING SUPERVISOR Ulcer of lower extremity, right, with unspecified severity (Primary Dx); Lymphedema; Ulcer of lower extremity, left, with unspecified severity 12/09/2016 9:00 AM EST Office Visit [facility], [place] [facility] [address] [place] [address] [phone] St Onge, Shira, URANIUM PROCESSING SUPERVISOR Ulcer of lower extremity, right, with unspecified severity (Primary Dx); Lymphedema; Ulcer of lower extremity, left, with unspecified severity 12/02/2016 10:00 AM EST Office Visit [facility], [place] [facility] [address] [place] [phone] St Onge, Shira, URANIUM PROCESSING SUPERVISOR Ulcer of lower extremity, right, with unspecified severity (Primary Dx); Lymphedema; Ulcer of lower extremity, left, with unspecified severity 11/25/2016 11:00 AM EST Office Visit [facility], [place] [facility] [address] [place] [phone] St Onge, Shira, URANIUM PROCESSING SUPERVISOR Lymphedema (Primary Dx); Ulcer of lower extremity, left, with unspecified severity [L97.929]; Ulcer of lower extremity, right, with unspecified severity [L97.919] 11/25/2016 8:00 AM EST Minor Procedure/Test [facility] [address] [place] [phone] Roger Johnson, LANCE Onychomycosis (Primary Dx); Pain in toes of both feet [M79.674, M79.675] 11/19/2016 8:20 AM EST Office Visit [facility], [place] [facility] [address] [place] [phone] St Onge, Shira, URANIUM PROCESSING SUPERVISOR Lymphedema (Primary Dx); Ulcer of lower extremity, left, with unspecified severity [L97.929]; Ulcer of lower extremity, right, with unspecified severity [L97.919]; Venous stasis of lower extremity 11/11/2016 9:00 AM EST Office Visit [facility], [place] [facility] [address] [place] [address] St Onge, Shira, URANIUM PROCESSING SUPERVISOR Lymphedema (Primary Dx); Ulcer of lower extremity, left, with unspecified severity [L97.929]; Ulcer of lower extremity, right, with unspecified severity [L97.919] 11/04/2016 9:00 AM EST Office Visit [facility], [place] [facility] [address] [facility] [address] [place] [address] [address] Onge, Shira, URANIUM PROCESSING SUPERVISOR Lymphedema (Primary Dx); Ulcer of lower extremity, left, with unspecified severity [L97.929]; Ulcer of lower extremity, right, with unspecified severity [L97.919] 10/28/2016 9:20 AM EST Office Visit [facility], [place] [facility] [address] [facility] [address] [place] [address] [address] Onge, Shira, URANIUM PROCESSING SUPERVISOR Lymphedema (Primary Dx); Ulcer of lower extremity, left, with unspecified severity [L97.929]; Ulcer of lower extremity, right, with unspecified severity [L97.919]; Chronic venous insufficiency 10/21/2016 10:40 AM EST Office Visit [facility], [place] [facility] [address] [place] [address] [address] [place] [address] [address] Onge, Shira, URANIUM PROCESSING SUPERVISOR Ulcer of lower extremity, left, with unspecified severity [L97.929] (Primary Dx); Ulcer of lower extremity, right, with unspecified severity [L97.919]; Venous stasis of lower extremity 10/14/2016 8:20 AM EST Office Visit [facility] [address] [place] [address] [address] [place] [address] [address] Onge, Shira, URANIUM PROCESSING SUPERVISOR Lymphedema (Primary Dx); Ulcer of lower extremity, left, with unspecified severity [L97.929]; Ulcer of lower extremity, right, with unspecified severity [L97.919] 10/07/2016 9:00 AM EST Office Visit [facility] [address] [place] [address] St Onge, Shira, URANIUM PROCESSING SUPERVISOR Ulcer of lower extremity, left, with unspecified severity [L97.929] (Primary Dx); Ulcer of lower extremity, right, with unspecified severity [L97.919]; Venous stasis of lower extremity 09/30/2016 9:15 AM EST Nurse Visit [facility] [address] [facility] [address] [place] [address] Stinehart, Anabel, DIGITAL CONTENT SPECIALIST Ulcers of both lower legs (Primary Dx); Edema, unspecified type [R60.9]; Encounter for change or removal of nonsurgical wound dressing 09/06/2016 [facility] [address] [place] [address] Jennifer Gibbons MD 09/02/2016 8:40 AM EST Office Visit [facility] [address] [facility] [address] [place] [address] [address] Onge, Shira, URANIUM PROCESSING SUPERVISOR Lymphedema (Primary Dx); Leg ulcer, left, with unspecified severity; Ulcer of lower extremity, right, with unspecified severity [L97.919] 08/27/2016 8:20 AM EST Office Visit [facility] [address] [facility] [address] [place] [address] [address] Onge, Shira, URANIUM PROCESSING SUPERVISOR Lymphedema (Primary Dx); Ulcer of lower extremity, left, with unspecified severity [L97.929]; Ulcer of lower extremity, right, with unspecified severity [L97.919] 08/19/2016 Telephone [facility] [address] [facility] [address] [place] [address] [address] Onge, Shira, URANIUM PROCESSING SUPERVISOR 08/19/2016 8:40 AM EDT Office Visit [facility] [address] [facility] [address] [place] [address] [address] Onge, Shira, URANIUM PROCESSING SUPERVISOR Lymphedema (Primary Dx); Ulcer of lower extremity, left, with unspecified severity [L97.929]; Ulcer of lower extremity, right, with unspecified severity [L97.919] 08/05/2016 9:15 AM EDT Nurse Visit [facility] [address] [facility] [address] [place] [address] Stinehart, Anabel, DIGITAL CONTENT SPECIALIST Bilateral leg ulcer, with unspecified severity (Primary Dx); Edema, unspecified type [R60.9]; Encounter for change or removal of nonsurgical wound dressing 07/29/2016 8:40 AM EDT Office Visit [facility] [address] [facility] [address] [place] [address] [address] Ally SnowAZRA neely Ulcer of lower extremity, left, with unspecified severity [L97.929] (Primary Dx); Ulcer of lower extremity, right, with unspecified severity [L97.919]; Lymphedema 07/15/2016 9:00 AM EDT Nurse Visit [facility] [address] [facility] [address] [place] [address] Stinehart, Anabel, DIGITAL CONTENT SPECIALIST Edema, unspecified type [R60.9] (Primary Dx); Encounter for change or removal of nonsurgical wound dressing; Bilateral leg ulcer, with unspecified severity 07/08/2016 9:00 AM EDT Nurse Visit [facility] [address] [place] [address] [address] [place] [address] Stinehart, Anabel, DIGITAL CONTENT SPECIALIST Edema, unspecified type [R60.9] (Primary Dx); Encounter for change or removal of nonsurgical wound dressing 07/01/2016 9:00 AM EDT Nurse Visit [facility] [address] [place] [address] [address] [place] [address] Stinehart, Anabel, DIGITAL CONTENT SPECIALIST Edema, unspecified type [R60.9] (Primary Dx); Encounter for change or removal of nonsurgical wound dressing; Bilateral leg ulcer, with unspecified severity 06/24/2016 9:00 AM EDT Nurse Visit [facility] [address] [facility] [address] [place] [address] GuthrieEssie, SITE ADMINISTRATOR Edema, unspecified type [R60.9] (Primary Dx); Encounter for change or removal of nonsurgical wound dressing; Ulcer of calf, unspecified laterality, with unspecified severity (HCC) [L97.209] 06/17/2016 9:20 AM EDT Office Visit [facility] [address] [facility] [address] [place] [address] [address] OngeShira URANIUM PROCESSING SUPERVISOR Ulcer of lower extremity, left, with unspecified severity (HCC) [L97.929] (Primary Dx); Ulcer of lower extremity, right, with unspecified severity (HCC) [L97.919]; Chronic venous insufficiency 06/10/2016 9:00 AM EDT Nurse Visit [facility] [address] [facility] [address] [place] [address] Stinehart, Anabel, DIGITAL CONTENT SPECIALIST Ulcers of both lower extremities (Primary Dx); Edema, unspecified type [R60.9]; Encounter for change or removal of nonsurgical wound dressing 06/03/2016 9:00 AM EDT Nurse Visit [facility] [address] [facility] [address] [place] [address] Stinehart, Anabel, DIGITAL CONTENT SPECIALIST Edema, unspecified type [R60.9] (Primary Dx); Encounter for change or removal of nonsurgical wound dressing; Ulcer of lower extremity, unspecified laterality, with unspecified severity 05/27/2016 9:00 AM EDT Nurse Visit [facility] [address] [place] [address] [address] [place] [address] Stinehart, Anabel, DIGITAL CONTENT SPECIALIST Edema, unspecified type [R60.9] (Primary Dx); Encounter for change or removal of nonsurgical wound dressing; Ulcers of both lower extremities 05/20/2016 10:20 AM EDT Office Visit [facility] [address] [facility] [address] [place] [address] [address] Shira Snow, URANIUM PROCESSING SUPERVISOR Ulcer of lower extremity, left, with unspecified severity (HCC) [L97.929] (Primary Dx); Ulcer of lower extremity, right, with unspecified severity (HCC) [L97.919]; Edema, unspecified type [R60.9]; Venous stasis of lower extremity 05/06/2016 8:40 AM EDT Nurse Visit [facility] [address] [address] [address] Onge, Shira, URANIUM PROCESSING SUPERVISOR Ulcer of lower extremity, left, with unspecified severity (HCC) [L97.929] (Primary Dx); Ulcer of lower extremity, right, with unspecified severity (HCC) [L97.919]; Venous stasis of lower extremity 04/29/2016 8:30 AM EDT Nurse Visit [facility] [address] [place] [phone] Stinehart, Anabel, DIGITAL CONTENT SPECIALIST Ulcers of both lower extremities (Primary Dx); Edema, unspecified type [R60.9]; Encounter for change or removal of nonsurgical wound dressing 04/22/2016 9:00 AM EDT Nurse Visit [facility] [address] [place] [phone] Stinehart, Anabel, DIGITAL CONTENT SPECIALIST Edema, unspecified type [R60.9] (Primary Dx); Encounter for change or removal of nonsurgical wound dressing 04/15/2016 9:00 AM EDT Office Visit [facility] [address] [place] [address] St Onge, Shira, URANIUM PROCESSING SUPERVISOR Ulcer of lower extremity, left, with unspecified severity (HCC) [L97.929] (Primary Dx); Venous stasis of lower extremity 04/09/2016 2:30 PM EDT Nurse Visit [facility] [address] [place] [address] Stinehart, Anabel, DIGITAL CONTENT SPECIALIST Edema, unspecified type [R60.9] (Primary Dx); Encounter for change or removal of nonsurgical wound dressing 04/02/2016 9:15 AM EDT Nurse Visit [facility] [address] [place] [phone] Stinehart, Anabel, DIGITAL CONTENT SPECIALIST Bilateral leg ulcer, with unspecified severity (Primary Dx); Edema, unspecified type [R60.9]; Encounter for change or removal of nonsurgical wound dressing 03/18/2016 8:30 AM EDT Nurse Visit [facility] [address] [facility] [address] [place] [address] Anabel Springer LPN Edema, unspecified type [R60.9] (Primary Dx); Encounter for change or removal of nonsurgical wound dressing 03/12/2016 Telephone [facility] [address] [place] [address] [address] [place] [address] Tmaika Lomax MD Results 03/12/2016 2:00 PM EDT Office Visit [facility] [address] [place] [address] [address] [place] [address] Tamika Lomax MD Bilateral leg ulcer, limited to breakdown of skin (Primary Dx); Presence of IVC filter 03/11/2016 8:20 AM EDT Office Visit [facility] [address] [place] [address] [address] [place] [address] [address] Onge, Shira, URANIUM PROCESSING SUPERVISOR Lymphedema (Primary Dx); Ulcer of lower extremity, left, with unspecified severity (HCC) [L97.929]; Ulcer of lower extremity, right, with unspecified severity (HCC) [L97.919] 03/05/2016 8:20 AM EDT Office Visit [facility] [address] [place] [address] [address] [place] [address] [address] Onge, Shira, URANIUM PROCESSING SUPERVISOR Lymphedema (Primary Dx); Ulcer of lower extremity, left, with unspecified severity (HCC) [L97.929]; Ulcer of lower extremity, right, with unspecified severity (HCC) [L97.919] 02/26/2016 3:00 PM EDT Office Visit [facility] [address] [place] [address] St Onge, Shira, URANIUM PROCESSING SUPERVISOR Ulcer of lower extremity, left, with unspecified severity (HCC) [L97.929] (Primary Dx); Ulcer of lower extremity, right, with unspecified severity (HCC) [L97.919]; Lymphedema 02/13/2016 2:15 PM EDT Office Visit [facility] [address] [place] [phone] Tamika Lomax MD Venous stasis dermatitis of both lower extremities (Primary Dx) 02/06/2016 Telephone [facility] [address] [place] [phone] Roegr Johnson DPM FYAric 01/15/2016 8:20 AM EDT Office Visit [facility] [address] [place] [phone] St OnShira meyer, URANIUM PROCESSING SUPERVISOR Lymphedema (Primary Dx); Ulcer of lower extremity, left, with unspecified severity (HCC) [L97.929] 01/09/2016 8:20 AM EDT Office Visit [facility] [address] [place] [address] St OnShira meyer, URANIUM PROCESSING SUPERVISOR Ulcer of lower extremity, left, with unspecified severity (HCC) [L97.929] (Primary Dx); Ulcer of lower extremity, right, with unspecified severity (HCC) [L97.919]; Lymphedema; Chronic venous insufficiency 2015 8:30 AM EST Nurse Visit [facility] [address] [place] [phone] Anabel Springer LPN Ulcer of lower extremity, unspecified laterality, with unspecified severity (Primary Dx); Edema, unspecified type [R60.9]; Encounter for change or removal of nonsurgical wound dressing 12/10/2015 8:00 AM EST Office Visit [facility] [address] [place] [phone] St OnShira meyer, URANIUM PROCESSING SUPERVISOR Lymphedema (Primary Dx); Ulcer of lower extremity, left, with unspecified severity (HCC) [L97.929]; Venous stasis of lower extremity 11/04/2015 10:00 AM EST Nurse Visit [facility] [address] [facility] [address] [place] [address] Alvina Springera, DIGITAL CONTENT SPECIALIST Edema, unspecified type [R60.9] (Primary Dx); Encounter for change or removal of nonsurgical wound dressing 11/01/2015 9:15 AM EST Nurse Visit [facility] [address] [facility] [address] [place] [address] Rianat Anabel, DIGITAL CONTENT SPECIALIST Encounter for change or removal of nonsurgical wound dressing (Primary Dx); Ulcer of lower extremity, unspecified laterality, with unspecified severity 10/31/2015 11:20 AM EST Office Visit [facility] [address] [place] [phone] Roger Johnson DPM Atherosclerosis of [place] artery of both lower extremities, with unspecified presence of clinical manifestation (HCC) [I70.203] (Primary Dx); Onychomycosis; Pain of toes of both feet 10/28/2015 9:15 AM EST Nurse Visit [facility] [address] [facility] [address] [place] [address] Alvina Springera, DIGITAL CONTENT SPECIALIST Ulcer of lower extremity, unspecified laterality, with unspecified severity (Primary Dx); Encounter for change or removal of nonsurgical wound dressing 10/24/2015 9:00 AM EST Office Visit [facility] [address] [facility] [address] [place] [address] St Shira Snow NP Ulcer of lower extremity, right, with unspecified severity (HCC) [L97.919] (Primary Dx); Chronic venous insufficiency; Venous stasis of lower extremity; Morbid obesity, unspecified obesity type (HCC) [E66.01]; Ulcer of lower extremity, left, with unspecified severity (HCC) [L97.929] 10/14/2015 8:30 AM EST Nurse Visit [facility] [address] [facility] [address] [place] [address] Stinehart, Anabel, DIGITAL CONTENT SPECIALIST Leg ulcer, unspecified laterality, with unspecified severity (Primary Dx); Generalized edema [R60.1]; Encounter for change or removal of nonsurgical wound dressing 10/03/2015 8:45 AM EST Nurse Visit [facility] [address] [facility] [address] [place] [address] Stinehart, Anabel, DIGITAL CONTENT SPECIALIST Non-pressure ulcer of lower extremity, unspecified laterality, with unspecified severity (Primary Dx); Generalized edema [R60.1]; Encounter for change or removal of nonsurgical wound dressing 09/26/2015 8:20 AM EST Office Visit [facility] [address] [facility] [address] [place] [address] St Shira Snow, URANIUM PROCESSING SUPERVISOR Ulcer of lower extremity, left, with unspecified severity (HCC) [L97.929] (Primary Dx); Ulcer of lower extremity, right, with unspecified severity (HCC) [L97.919]; Edema, due to unspecified malnutrition type, unspecified edema; Morbid obesity, unspecified obesity type (HCC) [E66.01] 09/19/2015 8:30 AM EST Nurse Visit [facility] [address] [facility] [address] [place] [address] Stinehart, Anabel, DIGITAL CONTENT SPECIALIST Ulcer of lower extremity, unspecified laterality, with unspecified severity (Primary Dx); Generalized edema [R60.1]; Encounter for change or removal of nonsurgical wound dressing 09/06/2015 9:45 AM EST Nurse Visit [facility] [address] [facility] [address] [place] [address] Stinehart, Anabel, DIGITAL CONTENT SPECIALIST Ulcers of both lower extremities (Primary Dx); Edema, unspecified edema [R60.9]; Encounter for change or removal of nonsurgical wound dressing 08/29/2015 8:20 AM EST Office Visit [facility] [address] [facility] [address] [place] [address] [address] Onge, Shira, URANIUM PROCESSING SUPERVISOR Ulcer of lower extremity, left, with unspecified severity (HCC) [L97.929] (Primary Dx); Ulcer of lower extremity, right, with unspecified severity (HCC) [L97.919]; Venous stasis of lower extremity; Morbid obesity, unspecified obesity type (HCC) [E66.01] 08/22/2015 8:30 AM EST Nurse Visit [facility] [address] [facility] [address] [place] [address] Stinehart, Anabel, DIGITAL CONTENT SPECIALIST Edema, unspecified edema [R60.9] (Primary Dx); Encounter for change or removal of nonsurgical wound dressing 08/15/2015 8:30 AM EDT Nurse Visit [facility] [address] [place] [address] [address] [place] [address] Stinehart, Anabel, DIGITAL CONTENT SPECIALIST Generalized edema [R60.1] (Primary Dx); Encounter for change or removal of nonsurgical wound dressing 08/08/2015 8:45 AM EDT Nurse Visit [facility] [address] [place] [address] [address] [place] [address] Stinehart, Anabel, DIGITAL CONTENT SPECIALIST 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); Varicose veins of left lower extremity with inflammation; Edema, unspecified edema [R60.9]; Encounter for change or removal of nonsurgical wound dressing 08/01/2015 8:20 AM EDT Office Visit [facility] [address] [facility] [address] [place] [address] St Shira Snow NP Venous stasis dermatitis of both lower extremities [I83.11, I83.12] (Primary Dx); Morbid obesity, unspecified obesity type (HCC) [E66.01]; Ulcer of lower extremity, right, with unspecified severity (HCC) [L97.919]; Venous stasis of lower extremity 07/26/2015 10:30 AM EDT Nurse Visit [facility] [address] [place] [address] [address] [place] [address] Stinehart, Anabel, DIGITAL CONTENT SPECIALIST Edema, unspecified edema [R60.9] (Primary Dx); Encounter for change or removal of nonsurgical wound dressing 07/08/2015 11:00 AM EDT Nurse Visit [facility] [address] [facility] [address] [place] [address] Stinehart, Anabel, DIGITAL CONTENT SPECIALIST Ulcers of both lower extremities (Primary Dx); Generalized edema [782.3]; Encounter for change or removal of nonsurgical wound dressing 07/08/2015 Telephone [facility] [address] [facility] [address] [place] [address] Shira Meyers NP Unna Boot Application 06/28/2015 2:45 PM EDT Nurse Visit [facility] [address] [facility] [address] [place] [address] Stinehart, Anabel, DIGITAL CONTENT SPECIALIST Ulcers of both lower extremities (Primary Dx); Encounter for change or removal of nonsurgical wound dressing 06/21/2015 10:00 AM EDT Nurse Visit [facility] [address] [facility] [address] [place] [address] Stinehart, Anabel, DIGITAL CONTENT SPECIALIST Ulcer of lower extremity, unspecified laterality, with unspecified severity (Primary Dx); Edema; Encounter for change or removal of nonsurgical wound dressing 06/11/2015 9:45 AM EDT Nurse Visit [facility] [address] [facility] [address] [place] [address] Stefan, Angela, DIGITAL CONTENT SPECIALIST Edema (Primary Dx); Encounter for change or removal of nonsurgical wound dressing; Ulcer of calf, unspecified laterality, with unspecified severity (HCC) [707.12] 06/05/2015 9:15 AM EDT Nurse Visit [facility] [address] [facility] [address] [place] [address] Stefan, Angela, DIGITAL CONTENT SPECIALIST Edema (Primary Dx); Encounter for change or removal of nonsurgical wound dressing; Ulcer of calf, unspecified laterality, with unspecified severity (HCC) [707.12] 05/30/2015 10:20 AM EDT Office Visit [facility] [address] [facility] [address] [place] [address] [address] Shira Snow, URANIUM PROCESSING SUPERVISOR Morbid obesity (Primary Dx); Ulcer of lower extremity, right, with unspecified severity (HCC) [707.10]; Ulcer of lower extremity, left, with unspecified severity (HCC) [707.10]; Chronic venous insufficiency; Venous stasis of lower extremity 03/15/2015 8:40 AM EDT Office Visit [facility] [address] [facility] [address] [place] [address] St Shira Snow NP Edema (Primary Dx); Ulcers of both lower legs 03/08/2015 9:00 AM EDT Nurse Visit [facility] [address] [facility] [address] [place] [address] Angela Aviles LPN Edema (Primary Dx); Encounter for change or removal of nonsurgical wound dressing; Ulcer of calf, unspecified laterality, with unspecified severity (HCC) [707.12]; Ulcer of ankle, unspecified laterality, with unspecified severity (HCC) [707.13] 03/04/2015 8:45 AM EDT Nurse Visit [facility] [address] [facility] [address] [place] [address] Angela Aviles LPN Edema (Primary Dx); Encounter for change or removal of nonsurgical wound dressing 02/22/2015 9:00 AM EDT Nurse Visit [facility] [address] [facility] [address] [place] [address] Angela Aviles LPN Edema (Primary Dx); Encounter for change or removal of nonsurgical wound dressing 02/15/2015 8:40 AM EDT Office Visit [facility] [address] [facility] [address] [place] [address] St Shira Snow NP Edema (Primary Dx); Ulcer of lower extremity, right, with unspecified severity (HCC) [707.10]; Venous stasis of lower extremity 02/05/2015 2:00 PM EDT Nurse Visit [facility] [address] [facility] [address] [place] [address] Beba Parker, DIGITAL CONTENT SPECIALIST Ulcer of lower limb (Primary Dx); Edema; Encounter for change or removal of nonsurgical wound dressing 02/05/2015 Telephone [facility] [address] [facility] [address] [place] [address] Shira Meyers NP Edema 12/28/2014 8:20 AM EDT Office Visit [facility] [address] [facility] [address] [place] [address] Shira Meyers NP Edema (Primary Dx); Ulcer of lower extremity; Venous stasis of lower extremity 12/21/2014 9:15 AM EST Nurse Visit [facility] [address] [facility] [address] [place] [address] Essie Fuller LVN LPN Edema (Primary Dx); Encounter for change or removal of nonsurgical wound dressing; Ulcer of calf 12/14/2014 8:30 AM EST Nurse Visit [facility] [address] [facility] [address] [place] [address] Poncho Parkera, DIGITAL CONTENT SPECIALIST Edema (Primary Dx); Encounter for change or removal of nonsurgical wound dressing 12/07/2014 8:20 AM EST Office Visit [facility] [address] [facility] [address] [place] [address] Shira Meyers NP Ulcer of lower extremity (Primary Dx); Venous stasis of lower extremity 12/03/2014 9:00 AM EST Nurse Visit [facility] [address] [facility] [address] [place] [address] Anabel Springer, DIGITAL CONTENT SPECIALIST Edema (Primary Dx); Encounter for change or removal of nonsurgical wound dressing 11/23/2014 9:00 AM EST Nurse Visit [facility] [address] [facility] [address] [place] [address] Beba Parker LPN Edema (Primary Dx); Encounter for change or removal of nonsurgical wound dressing 11/16/2014 9:00 AM EST Nurse Visit [facility] [address] [facility] [address] [place] [address] Anabel Springer LPN Edema (Primary Dx); Encounter for change or removal of nonsurgical wound dressing 11/15/[address] [facility] [address] [place] [address] Roger Johnson DPM FYI 11/09/2014 8:40 AM EST Office Visit [facility] [address] [facility] [address] [place] [address] Shira Meyers NP Ulcer of lower extremity (Primary Dx); Venous stasis of lower extremity 08/22/2014 3:30 PM EST Minor Procedure/Test [facility] [address] [place] [address] Roger Johnson DPM Type II diabetes mellitus with peripheral circulatory disorder (Primary Dx); Onychomycosis; Peripheral angiopathy in diseases classified elsewhere; Pain in limb 08/09/2014 Telephone [facility] [address] [facility] [address] [place] [address] Shira Meyers NP Patient Questions ; Equipment/supplies 08/09/2014 8:20 AM EDT Office Visit [facility] [address] [facility] [address] [place] [address] Shira Meyers NP Lymphedema (Primary Dx); Ulcer of lower extremity; Chronic venous insufficiency 07/26/2014 8:20 AM EDT Office Visit [facility] [address] [facility] [address] [place] [address] [address] Onge, Shira, URANIUM PROCESSING SUPERVISOR Ulcer of lower extremity (Primary Dx); Chronic venous insufficiency; Morbid obesity; Venous stasis of lower extremity 07/25/2014 Telephone [facility] [address] [facility] [address] [place] [address] Tamika Lomax MD Wound Care; Equipment/supplies 07/20/2014 10:00 AM EDT Office Visit [facility] [address] [facility] [address] [place] [address] Tamika Lomax MD Venous stasis dermatitis (Primary Dx); Venous ulcer of leg 05/31/2014 8:40 AM EDT Office Visit [facility] [address] [facility] [address] [place] [address] [address] Onge, Shira, URANIUM PROCESSING SUPERVISOR Ulcer of lower extremity (Primary Dx); Chronic venous insufficiency 05/04/2014 Telephone [facility] [address] [facility] [address] [place] [address] [address] Onge, Shira, URANIUM PROCESSING SUPERVISOR No Show 03/29/2014 10:00 AM EDT Office Visit [facility] [address] [facility] [address] [place] [address] St Onge, Shira, URANIUM PROCESSING SUPERVISOR Morbid obesity (Primary Dx); Ulcer of lower extremity; Venous stasis of lower extremity 02/26/2014 10:00 AM EDT Office Visit [facility] [address] [facility] [address] [place] [address] [address] Onge, Shira, URANIUM PROCESSING SUPERVISOR Ulcer of lower extremity (Primary Dx); Venous stasis of lower extremity 01/29/2014 1:20 PM EDT Office Visit [facility] [address] [facility] [address] [place] [address] [address] Onge, Shira, URANIUM PROCESSING SUPERVISOR Ulcer of lower extremity (Primary Dx); Venous stasis of lower extremity; Morbid obesity 01/23/2014 11:00 AM EDT Office Visit [facility] [address] [facility] [address] [place] [address] [address] Onge, Shira, URANIUM PROCESSING SUPERVISOR Edema (Primary Dx); Morbid obesity; Ulcer of lower extremity; Venous stasis of lower extremity 01/16/2014 11:00 AM EDT Office Visit [facility] [address] [facility] [address] [place] [address] [address] Onge, Shira, URANIUM PROCESSING SUPERVISOR Morbid obesity (Primary Dx); Venous stasis of lower extremity; Edema; Ulcer of lower extremity 11/23/[address] [facility] [address] [place] [address] Roger Johnson DPM FYAric 11/22/2013 Telephone [facility] [address] [place] [address] St Onge, Shira, URANIUM PROCESSING SUPERVISOR No Show 10/10/2013 10:40 AM EST Office Visit [facility] [address] [facility] [address] [place] [address] [address] Onge, Shira, URANIUM PROCESSING SUPERVISOR Ulcer of lower extremity (Primary Dx); Venous stasis of lower extremity 09/05/2013 9:20 AM EST Office Visit [facility] [address] [place] [address] St Onge, Shira, URANIUM PROCESSING SUPERVISOR Morbid obesity (Primary Dx); Ulcer of lower extremity; Chronic venous insufficiency 08/15/2013 9:40 AM EDT Office Visit [facility] [address] [facility] [address] [place] [address] [address] Onge, Shira, URANIUM PROCESSING SUPERVISOR Morbid obesity (Primary Dx); Ulcer of lower extremity; Venous stasis of lower extremity 08/09/2013 1:30 PM EDT Consult (Initial) [facility] [address] [place] [address] Roger Johnson DPM Type II diabetes mellitus with peripheral circulatory disorder (Primary Dx); Onychomycosis; Peripheral angiopathy in diseases classified elsewhere; Pain in limb 07/24/2013 10:30 AM EDT Office Visit [facility] [address] [facility] [address] [place] [address] Tamika Lomax MD Venous ulcer of leg (Primary Dx); Venous insufficiency 07/07/2013 9:00 AM EDT Office Visit [facility] [address] [facility] [address] [place] [address] Shira Meyers NP Ulcer of lower extremity (Primary Dx); Venous stasis of lower extremity; Morbid obesity 06/21/2013 2:30 PM EDT Office Visit [facility] [address] [facility] [address] [place] [address] Tamika Lomax MD Venous ulcer of leg (Primary Dx) 06/15/2013 Telephone [facility] [address] [facility] [address] [place] [address] Tamika Lomax MD Wound Care 06/14/2013 Minor Procedure/Test NON FC [facility] [address] [place] [address] Tamika Lomax MD 06/09/2013 Orders Only [facility] [address] [facility] [address] [place] [address] Shilpi Vasquez Tech 06/09/2013 9:00 AM EDT Nurse Visit [facility] [facility]mission [facility] [address] [place] [address] Ally Ervin RN Leg ulcer (Primary Dx) 06/09/2013 8:00 AM EDT Office Visit [facility] Pre-Admission Testing [address] [place] [address] Yolande Garcia NP Pre-operative examination (Primary Dx); Venous ulcer of leg; Deep vein thrombosis; HTN (hypertension); Sleep apnea; Spinal stenosis 06/07/2013 2:45 PM EDT Office Visit [facility] General Vascular Surgery [address] [facility] [address] [place] [address] Tamika Lomax MD Leg ulcer (Primary Dx); Venous stasis 05/31/2013 9:00 AM EDT Nurse Visit [facility] General Vascular Surgery [address] [facility] [address] [place] [address] Stinehart, Anabel, DIGITAL CONTENT SPECIALIST Ulcer of lower extremity (Primary Dx); Edema; Encounter for change or removal of nonsurgical wound dressing 05/24/2013 9:20 AM EDT Office Visit [facility] General Vascular Surgery [address] [place] [address] [address] [place] [address] Shira Meyers NP Ulcer of lower extremity (Primary Dx); Venous stasis of lower extremity 05/18/2013 Orders Only FAM PRAC UNSPECIFIED Malik Nolan DO 05/17/2013 9:15 AM EDT Nurse Visit [facility] General Vascular Surgery [address] [facility] [address] [place] [address] Stinehart, Anabel, DIGITAL CONTENT SPECIALIST Edema (Primary Dx); Encounter for change or removal of nonsurgical wound dressing; Ulcer of calf 05/10/2013 9:15 AM EDT Nurse Visit [facility] General Vascular Surgery [address] [place] [phone] Stinehart, Anabel, DIGITAL CONTENT SPECIALIST Ulcer of lower extremity (Primary Dx); Edema; Encounter for change or removal of nonsurgical wound dressing 05/03/2013 9:20 AM EDT Office Visit [facility] General Vascular Surgery [address] [facility] [address] [place] [address] Shira Meyers NP Morbid obesity (Primary Dx); Ulcer of lower extremity; Venous stasis of lower extremity 04/26/2013 9:20 AM EDT Consult (Initial) [facility] General Vascular Surgery [address] [facility] [address] [place] [address] Shira Meyers NP Ulcer of lower extremity [...] stasis 1 PATCH DAILY Active [employer], TOPICAL, [id number] U/GM OintmentIndicati ons:Leg ulcer (HCC),Venous stasis None [...] 07/22/2022,05/06/2022 Social History Smoking Status as of 08/22/2025 Tobacco Use Types Packs/Day Years Used Date [...] Not on file Procedures * Due to [place] state law, this organization might not be [...] DIAGNOSTIC PROCE 05/18/2013 Results * Due to [place] state law, this organization might not be sharing negative HIV tests. * UNSPECIFIED MAJOR PROCEDURE (09/29/2019) us Joshua Hendrix MD PROCEDURES Final Resul t * (ABNORMAL) CBC WITH 5 PART DIFF (02/19/2017 7:20 AM EDT) Only the most recent of3 resultswithin the time period is included. WHITE BLOOD COUNT 6.4 3.9 - 11.0 x1000/uL [facility] Comment: Smear review performed when a >50% change is noted in any parameter, or more than 72 hours has elapsed since the last CBC. RBC 3.47(L) 4.30 - 5.80 mil/ul [facility] Hemoglobin 10.8(L) 12.5 - 17.0 g/dL [facility] HCT (HEMATOCRIT) 33.4(L) 36.0 - 50.0 % [facility] MCV 96 80 - 100 fL [facility] MCH 31 27 - 33 pg [facility] MCHC 32 31 - 36 g/dL [facility] RDW 14.7(H) 11.4 - 14.4 % [facility] PLATELETS 337 150 - 450 x1000/uL [facility] MPV 9.6 7.0 - 11.0 fL [facility] NEUTROPHILS 69 % [facility] LYMPHOCYTE % 16 % [facility] MONOCYTE % 12 % [facility] EOSINOPHIL % 2 % [facility] BASOPHIL % 1 % [facility] NEUTROPHILS (#) 4.4 1.8 - 7.0 x1000/uL [facility] LYMPHOCYTES # 1.0 0.7 - 4.5 x1000/uL [facility] MONOCYTES # 0.8 0.1 - 0.8 x1000/uL [facility] EOSINOPHILS # 0.1 0.0 - 0.4 x1000/uL [facility] BASOPHILS # 0.1 0.0 - 0.2 x1000/uL [facility] 02/19/2017 7:20 AM EDT 02/19/2017 7:20 AM EDT Tamika Lomax MD LABORATORY Final Res ult Performing Organization Address [facility] de Phone Number [facility] [address] [place] [address] * (ABNORMAL) PROTHROMBIN TIME (02/19/2017 7:20 AM EDT) Only the most recent of3 resultswithin the time period is included. PT (PROTHROMBIN TIME) 19.0(H) 9.1 - 12.0 sec [facility] INR 1.8(L) 2.0 - 3.5 [facility] Comment: INR reference interval applies to patients on anticoagulant therapy. Suggested INR therapeutic range for oral anticoagulant therapy:(Stabilized anticoagulated patients) Routine Therapy: 2.0-3.0 Recurrent Myocardial Infarction or Mechanical Prosthetic Valves: 2.5-3.5 02/19/2017 7:20 AM EDT 02/19/2017 7:20 AM EDT Tamika Lomax MD LABORATORY Final Res ult Performing Organization Address [facility] Co de Phone Number [facility] [address] [place] [address] * URINALYSIS,C&S IF INDICATED (02/18/2017 8:33 PM EDT) COLOR (URINE) YELLOW [facility] APPEARANCE (URINE) CLOUDY [facility] GLUCOSE (URINE) NEGATIVE Negative mg/dL [facility] BILIRUBIN (URINE) NEGATIVE Negative [facility] Ketones (Urine) NEGATIVE Negative mg/dL [facility] SPECIFIC GRAVITY 1.022 1.005 - 1.030 [facility] BLOOD (URINE) NEGATIVE Negative [facility] PH (URINE) 5.5 5.0 - 8.0 [facility] PROTEIN (URINE) NEGATIVE Neg-Trace mg/dL [facility] UROBILINOGEN 0.2 0.2 - 1.0 mg/dL [facility] NITRITE (URINE) NEGATIVE Negative [facility] WBC (URINE) NEGATIVE Negative [facility] Microscopic (Urine) [facility] Comment:Microscopic not leonor cated Culture Indication NO [facility] 02/18/2017 8:33 PM EDT 02/18/2017 8:33 PM EDT us Tamika Lomax MD LABORATORY Final Res ult Performing Organization Address City/[facility] Co de Phone Number [facility] [address] [place] [address] * CULTURE, BLOOD #2 (02/17/2017 3:10 PM EDT) SOURCE: Venipuncture [facility] Result(s) No growth after 5 days incubation [facility] REPORT STATUS: Final [facility] 02/17/2017 3:10 PM EDT 02/17/2017 3:10 PM EDT us Tamika Lomax MD LABORATORY Final Res ult Performing Organization Address City/[facility]/ZIP Co de Phone Number [facility] [address] [place] [address] * CULTURE, BLOOD #1 (02/17/2017 3:05 PM EDT) SOURCE: Venipuncture [facility] Result(s) No growth after 5 days incubation [facility] REPORT STATUS: Final [facility] 02/17/2017 3:05 PM EDT 02/17/2017 3:05 PM EDT us Tamika Lomax MD LABORATORY Final Res ult [facility] [address] [place] [address] * PHOSPHORUS (02/17/2017 3:05 PM EDT) PHOSPHATE 3.0 2.5 - 4.5 mg/dL [facility] 02/17/2017 3:05 PM EDT 02/17/2017 3:05 PM EDT Tamika Lomax MD LABORATORY Final Res ult Performing Organization Address City/[facility]/ZIP Co de Phone Number [facility] [address] [place] [address] * MAGNESIUM (02/17/2017 3:05 PM EDT) MAGNESIUM 1.8 1.6 - 2.6 mg/dL [facility] 02/17/2017 3:05 PM EDT 02/17/2017 3:05 PM EDT Tamika Lomax MD LABORATORY Final Res ult Performing Organization Address [facility] Co de Phone Number [facility] [address] [place] [address] * (ABNORMAL) BASIC METABOLIC PANEL (02/17/2017 3:05 PM EDT) Glucose 128(H) 65 - 99 mg/dL [facility] BUN 11 5 - 26 mg/dL [facility] CREATININE 0.93 0.5 - 1.5 mg/dL [facility] BUN/Creatinine Ratio 12 8 - 27 [facility] GLOM FILT RATE, EST 94.1 >59 mL/min [facility] IF -KENNETH N 109.0 >59 mL/min [facility] SODIUM 139 134 - 144 mEq/L [facility] POTASSIUM 3.7 3.6 - 5.6 mEq/L [facility] CHLORIDE 104 96 - 109 mEq/L [facility] CARBON DIOXIDE 23 20 - 32 mEq/L [facility] ANION GAP 12.0 8 - 15 [facility] CALCIUM 8.5 8.3 - 10.0 mg/dL [facility] 02/17/2017 3:05 PM EDT 02/17/2017 3:05 PM EDT Tamika Lomax MD LABORATORY Final Res ult [facility] [address] [place] [address] * CXR 2 VIEW AP/PA AND LAT (02/17/2017 1:59 PM EDT) RADIOLOGY REPORT [facility] Department of Radiology [address] [place] [address], [id number] Name: RICARDO REECE : 63 Date of Service: 02/17/171454 Acct Number: [id number] Order Number: [id number] Location: [facility] Report Number: [id number] Service: ADM IN/HENRRY Requesting Physician: Larry Burgos Category: RADIOLOGY [facility] Exam: CHEST 2 VIEW (DEPARTMENT) [...] is seen. Date/Time of Dictation: 02/17/17 1503 Display Designer Outside (if applicable): Approved By Attending Radiologist: Dylon Garcia 02/17/17 1503 [facility] Department of Radiology [address] [place] [address], [address] [facility] Anatomical Region Laterality Modality Other 02/17/2017 1:59 PM EDT Narrative 02/17/2017 3:04 PM EDT Reason for Study/History: Department of Radiology TEST(S) PROCESSED BY [facility] XRAY Unknown Provider [facility] IMAGING-[facility] Final Resul t * CULTURE,ANAEROBIC (06/14/2013 10:50 AM EDT) SOURCE: Tissue wound rt leg [facility] GRAM STAIN Many (>25/lpf) WBC No bacteria seen [facility] Result(s) No anaerobes isolated Aerobic Gram Positive Cocci [facility] REPORT STATUS: Final [facility] 06/14/2013 10:5 0 AM EDT 06/14/2013 10:50 AM EDT Tamika Lomax MD LABORATORY Final Res ult Performing Organization Address [facility] Co de Phone Number [facility] [address] [place] [address] * CULTURE,ANY SOURCE (06/14/2013 10:48 AM EDT) SOURCE: Tissue wound rt leg [facility] GRAM STAIN Many (>25/lpf) WBC No bacteria seen [facility] Result(s) Streptococcus species Group G - Light growth (1-2+) Mixed gram positive organisms - Rare growth [facility] REPORT STATUS: Final [facility] 06/14/2013 10:4 8 AM EDT 06/14/2013 10:48 AM EDT us Tamika Lomax MD LABORATORY Final Res ult Performing Organization Address City/[facility]/ZIP Co de Phone Number [facility] [address] [place] [address] * UNSPECIFIED MAJOR PROCEDURE (06/14/2013) Narrative Transcriptions [...] was 16 cm2. SURGEON: Dr. Tamika Lomax. SQUIRT MACHINE OPERATOR: Dr. Bradley. ANESTHESIA: General. ESTIMATED BLOOD [...] underneath. Once this was accomplished, the [employer] public health administrator was brought into the field and the [...] 11:51 A TT: 12:06 P Doc #: [id number] cc: MD Malik Washburn MD Tamika Lomax [...] 06/09/2013 7:25 AM EDT us Yolande Garcia URANIUM PROCESSING SUPERVISOR CARDIOVASCULAR-WITH INBSKT R TG Final Result MUSE [...] Onychomycosis Dermatophytosis of nail 10/31/2015 Atherosclerosis of [place] artery of both lower extremities, with unspecified [...] lower legs, limited to breakdown of skin ([facility]) 12/22/2017 Lymphedema Other lymphedema 12/22/2017 Edema, unspecified [...] Onychomycosis Dermatophytosis of nail 04/13/2018 Atherosclerosis of [place] artery of both lower extremities, with unspecified [...] lower legs, limited to breakdown of skin ([facility]) 06/01/2018 Spinal stenosis of lumbar region with [...] with neurogenic claudication 08/15/2018 BMI 50.0-59.9, adult ([facility]) Body Mass Index 50.0-59.9, adult 08/15/2018 Trigger [...] of right lower extremity, unspecified ulcer stage ([facility]) 07/04/2019 Lymphedema of both lower extremities 07/04/2019 [...] of lower extremity, right, with unspecified severity 11/21/2020 Venous stasis of lower extremity Unspecified venous (peripheral) insufficiency 11/21/2020 Chronic ulcer of lower extremity, right, with unspecified severity 12/05/2020 Ulcer of right lower extremity, unspecified ulcer stage (HCC) 12/10/2020 Chronic ulcer of lower extremity, right, with unspecified severity 12/24/2020 Ulcer of right lower extremity, unspecified [...] breakdown of skin (HCC) 03/05/2021 Care Teams Signal Timer Relationship Specialty Start Date End Date Destiny Trinidad MD [facility] [address] [place] [address] PCP - General Family Medicine 12/22/17
== END 2025-08-22 14:23 | disposition home or self-care (01) ==
LOC: HO.HMGCLDS 14:22
PROVIDERS: Visit Provider Urology
DX: Z12.5 Encounter for screening for malignant neoplasm of prostate (principal)
CPT/HCPCS: 36415; 84153

== ENCOUNTER 2025-09-05 09:33 | Outpatient (AMB) | payer MEDICARE, MEDICAID, SELFPAY ==
--- NOTE | 2025-09-05 10:05 | MHC.OFFVIS ---
Vital Signs 09/05/25 10:06 Height 5 ft 9 in BMI Reason not done Patient refused/unable BP 130/70 Blood Pressure Location Lt brachial Position Sitting Pulse 69 Pulse Source Pulse Oximeter Intake Visit Reasons: 4 mth f/up Intake Note: 4 mth f/up Foam Caster Required: No Accompanied by: Son Allergies cefaclor (From Ceclor) Allergy (Severe, Verified 08/15/25 08:43) hives epanolol Allergy (Severe, Verified 08/15/25 08:43) hives misoprostol Allergy (Severe, Verified 08/15/25 08:43) rash NSAIDS (Non-Steroidal Anti-Inflamma Allergy (Severe, Verified 08/15/25 08:43) GI upset Penicillins Allergy (Severe, Verified 08/15/25 08:43) hives, rash, itching Sulfa (Sulfonamide Antibiotics) Allergy (Severe, Verified 08/15/25 08:43) Hives Cephalosporins Allergy (Intermediate, Verified 08/15/25 08:43) hives amoxicillin Allergy (Mild, Verified 08/15/25 08:43) rash vancomycin Allergy (Mild, Verified 08/15/25 08:43) itching clindamycin Adverse Reaction (Intermediate, Verified 08/15/25 08:43) Rash Medication List - Last Reconciled 09/05/25 by Steven Ch MD ammonium lactate 12% 1 appl topical BID apixaban (Eliquis) 5 mg PO BID calcium carbonate-vitamin D3 600 mg-10 mcg (400 unit) 1 tab PO DAILY colesevelam 1,250 mg (2 x 625 mg) PO BID iron,carbonyl-vitamin C 65 mg iron- 125 mg (Vitron-C) 1 tab PO DAILY eouzfi-pdqyywln-hqdvlka (pork) 24,000-76,000 -120,000 unit (Creon) 2 caps PO BID metoprolol tartrate 50 mg See Protocol PO BID multivitamin with folic acid 400 mcg (Daily-Brent (with folic acid)) 1 tab PO DAILY omeprazole 40 mg PO DAILY oxybutynin chloride ER 15 mg PO DAILY oxycodone 5 mg PO Q6H PRN sertraline 100 mg PO DAILY simethicone (Gas Relief (simethicone)) 125 mg PO BID-QID PRN sucralfate 10 mL PO BID PRN tamsulosin 0.4 mg PO DAILY vibegron (Gemtesa) 75 mg PO DAILY HPI Comments Details: 59-year-old gentleman who was referred to us for episodes of paroxysmal atrial fibrillation. He has background history of morbid obesity status post bariatric surgery, DVT and pulmonary embolism with an IVC filter, hypertension and chronic lymphedema. It appears in 2019 he had palpitations which brought him to the emergency department and was diagnosed with atrial fibrillation. He was given metoprolol in the ER he reverted back to sinus rhythm. His Toprol-XL at that stage was increased from 50-75 mg and eventually to 100 mg. He was also started on lisinopril 5 mg for hypertension. He ran out of his medications a month ago and has not been taking lisinopril and Toprol. He is on Coumadin because of his previous DVT/pulmonary embolism and since he developed atrial fibrillation and this was continued. He continues to have morbid obesity and significant functional limitations due to arthritis and back issues. He gets short of breath when he exercises. He is denying any palpitations. He checks his INR at home and his Coumadin dose is adjusted by Dr. Trinidad. He had an echocardiogram in 2016 which showed normal left ventricular systolic function but there was septal flattening with RV pressure volume overload. Pulmonary artery systolic pressures were documented at 35-40 mm Hg at that time. He also had a dobutamine stress echo in April 2018 which did not show any evidence of ischemia or old ME. Previous drupal developer was Dr. Marcos Aguilar with [facility]. We repeated his echocardiogram which showed normal biventricular function with mildly dilated ascending aorta. He had moderate pulmonary hypertension. He is returning for follow-up. He had IVC filter removed in [facility] and had IVC stenting done by Dr. Gaffney. He is saying since then his lower extremity edema has improved significantly but recently started noticing right foot edema and will be going back for repeat venogram in April. His blood pressure is elevated and he is taking lisinopril 10 mg once a day. He also has been experiencing some chest discomfort off and on. This happens at nighttime when he is laying down but also happens when he is walking on the treadmill. He is walking approximately 5-6 minutes on treadmill every day as part of weight loss program. He is status post bariatric surgery x 2. He underwent stress testing which did not show any perfusion defect. He also had Holter monitoring which showed episodes of atrial fibrillation. He does not feel any symptoms during atrial fibrillation. Otherwise doing well. Denying any significant chest discomfort shortness of breath. He was started on Multaq. During his follow-up in September 2022 he was in sinus rhythm. Subsequent to that he was seen in office in 2022 and his EKG in the office showing atrial flutter with variable block. Discussing with him he has no symptoms. In particular no palpitations, chest discomfort or worsening shortness of breath. He has been taking his Eliquis and Multaq regularly and he has not missed Eliquis in the last 4 weeks. 06/28/23: He is returning for follow-up. On last visit he was noticed to be in atrial fibrillation and was admitted to the hospital underwent cardioversion after stopping Multaq and was started on sotalol. He has been tolerating sotalol well. EKG in the office is showing sinus rhythm. No palpitations. He has dyspnea on exertion which is chronic due to morbid obesity. 06/14/2024: He is here for follow-up. He is saying that he got in rate to [facility] recently with congestive heart failure. We will get records from there. His EKGs showing atrial fibrillation currently with rate control. He is on sotalol 80 mg twice a day. He is on apixaban 5 mg twice a day. He is denying any symptoms. No palpitations or worsening dyspnea. 08/21/2024: He is here for follow-up. He had 1 episode of palpitations which woke him up approximately 1 month ago. He said he has been diagnosed with sleep apnea and has been using CPAP. No chest discomfort. No shortness of breath more than usual. Other than 1 episode of palpitation no further episodes of atrial fibrillation. 04/30/2025: He is here for follow-up. He recently had pyelonephritis and had ureteric stent placement which was removed. He is saying this is his for urinary tract infection. He has been on Farxiga for long time. This was given to him for episode of heart failure. He is denying any palpitations although he is in AFib. His breathing is stable and is denying any shortness of breath. 09/05/2025: He is here for follow-up. Denying any chest pain or shortness of breath. He is undergoing vein procedures on both lower extremities. He is describing venous stripping but I am not exactly sure about the procedure. He is denying any palpitations or worsening shortness of breath. He gets some dyspnea with activities which is normal for him. [facility] Medical History Xerosis of skin Onychogryphosis PAD (peripheral artery disease) Asymptomatic superficial varicosities of lower extremity, bilateral Neuropathy Tinea unguium Nail disorder Nail dystrophy Nocturnal hypoxemia Somnolence, daytime Loud snoring SHAYLA (obstructive sleep apnea) Paroxysmal A-fib Atrial flutter PAF (paroxysmal atrial fibrillation) On beta paty at home On anticoagulant therapy SHAYLA on CPAP Bronchial asthma Restrictive lung disease Migration of vascular stent Pulmonary embolus Family history of stent Uncomplicated opioid dependence Lymphedema Lumbar disc disease Venous stasis Hyperlipidemia Neurogenic bladder Dyspnea Lumbar disc prolapse with root compression History of kidney stones GERD (gastroesophageal reflux disease) OA (osteoarthritis) Morbid obesity Asthma Depression Essential hypertension Surgical History Hx of cervical spine surgery S/P IVC filter S/P appendectomy Hx of colonoscopy History of esophagogastroduodenoscopy (EGD) Hx of eye surgery Hx of gastric bypass Family History Mother Diabetes Father Brain cancer Sister Diabetes Sister Diabetes Sister Diabetes Brother Blind Brother No problems noted. Brother No problems noted. Brother No problems noted. Brother No problems noted. Daughter No problems noted. Daughter Mental health disorder Son Mental health disorder Son No problems noted. Son No problems noted. Social History Household Members: Spouse and Children Household Members Other:: - 5 kids Housing: House Are you a primary rn care transition to a significant other at home: No Do you presently have visiting nurse or other home services: No Alcohol intake: former Year quit: 1979 Comment: uses cane at times- knee gives out Patient Tobacco Use Status: Never used Tobacco Second Hand Smoke Exposure: No Advance Directives Date on File: 08/14/21 service: No Current occupational status: disabled Current occupation: rt handed Review of Systems Const Denies chills, Denies fatigue, Denies fever(s), Denies frequent falls, Denies weakness, Denies weight gain and Denies weight loss ENT Denies dizziness Card Denies chest pain, Denies leg edema, Denies lightheadedness, Denies palpitations, Denies dyspnea and Denies dyspnea on exertion Resp Denies cough, Denies dyspnea and Denies dyspnea on exertion GI Denies hematochezia Musc Denies abnormal gait, Denies muscle weakness, Denies numbness, Denies radiating pain into limb and Denies tingling Neuro Denies abnormal gait, Denies dizziness, Denies frequent falls, Denies numbness, Denies tingling and Denies weakness Endo Denies fatigue and Denies palpitations Physical Exam Vital Signs: Last Vital Signs Pulse 69 09/05/25 10:06 BP 130/70 09/05/25 10:06 GENERAL APPEARANCE: in no acute distress, morbidly obese. Unkempt. NECK: no carotid bruit, no jugular venous distention. SKIN: Chronic lymphedema bilateral lower extremities. HEART: no murmurs, irregular rate and rhythm. LUNGS: clear to auscultation bilaterally. ABDOMEN: soft, nontender. EXTREMITIES: Chronic lymphedema. PERIPHERAL PULSES: equal. NEUROLOGIC: No gross deficits, AAO X 3 Assessment & Plan Assessment & Plan (1) Diastolic heart failure: Code(s): I50.30 - Unspecified diastolic (congestive) heart failure Category: Medical (2) Persistent atrial fibrillation: Code(s): I48.19 - Other persistent atrial fibrillation Category: Medical Plan 59-year-old gentleman who is here for follow-up. He has complex medical history including morbid obesity and paroxysmal atrial fibrillation. He was previously treated with sotalol with some success but then had breakthrough atrial fibrillation episodes with RVR. After discussion he was started on amiodarone. On follow-up he continued to be in atrial fibrillation. After some discussion we stopped the amiodarone and we have been managing him with rate control strategy. He has been doing reasonably well. He has not tolerate it Farxiga previously because of multiple UTIs. Overall volume status difficult to assess but clinically he has been stable. Denying any orthopnea or PND. Continue apixaban as before. Continue metoprolol tartrate 50 mg twice a day. He will see us back in 6 months. Thank you for allowing me to participate in the care of your patient. Please feel free to contact me if you have any questions. Coding Level of Care Code Est Pt Level 4 (78059) Diagnoses Diastolic heart failure I50.30 Persistent atrial fibrillation I48.19
[2025-09-05 10:06] VITALS: BP 130/70; PULSE 69
--- OUTSIDE RECORDS SUMMARY | 2025-09-05 17:39 | XMS_ITS | Encounter Summary ---
Author Organization [facility] Address [address] [place] [address] Phone Care Team Providers Care Valve Assembler Name Role Phone Pcp, Unknown Primary Care Provider Unavailabl Damion Brice MD Unavailable [phone] Raza Alonso MD Unavailable [phone] Gema Hilton NP Unavailable [phone] Destiny Trinidad MD Unavailable Malik Nolan DO Unavailable Destiny Trinidad MD Primary Care Provider Destiny Trinidad MD Primary Care Provider Encounter Details Date Type Department Care Team (Latest Contact Info) Description 06/12/2016 Transcribe Orders [facility] [address] [place] [address] Raza Alonso MD [address] [place] [address], [address] [place] [address] [email or web address] Other chest pain (Primary Dx) Social History Tobacco Use Types Packs/Day Years Used Date Smoking Tobacco: Former Sex and Gender Information Value Date Recorded Sex Assigned at Not on file Legal Sex Male 6:46 PM EST Gender Identity Not on file Sexual Orientation Not on file documented as of this encounter Plan of Treatment Upcoming Encounters Date Type Department Care Team ([facility] st Contact Info) Description 09/18/2025 10:30 AM EST Follow-Up [facility] [address] [place] [address] Destiny Trinidad MD [address] [place] [address] [email or web address] documented as of this encounter Visit Diagnoses Diagnosis Other chest pain- Primary documented in this encounter Care Teams Valve Assembler Relationship Specialty Start Date End Date Pcp, Unknown PCP - General 06/01/16 05/23/17 Destiny Trinidad MD [address] [place] [address] [email or web address] PCP - General Family Medicine 05/24/17 06/10/20 Destiny Trinidad MD [address] [place] [address] [email or web address] PCP - General Family Medicine 06/11/20 Damion Maynard MD [address] [place] [address] [address] [place] [address] Historical LMR Provider 05/01/17 7 Raza Alonso MD [address] [place] [address] [address] [place] [address] [email or web address] Historical LMR Provider 05/01/17 05/23/17 Gema Hilton NP [address] [place] [address] Historical LMR Provider 05/01/17 8 7 Destiny Trinidad MD [address] [place] [address] [email or web address] Historical LMR Provider 05/01/17 8 Malik Nolan DO [address] [address] Historical LMR Provider 05/01/17 8 7 documented as of this encounter Additional Source Comments The information contained in this document represents components of the legal health record. It is not the complete legal health record.[facility]
--- OUTSIDE RECORDS SUMMARY | 2025-09-05 17:39 | XMS_ITS | Clinical Summary ---
Author Organization [facility] Address [address] [place] [address] Phone Care Team Providers Care Professor Of Journalism Name Role Phone Destiny Trinidad MD Primary Care Provider [phone] Allergies Active Allergy Reactions Criticality Noted Date [...] a day. 180 tablet 3 3 Active fluticasone propionate 50 mcg/actuation diskus inhaler [...] mouth daily 90 tablet 3 4 Active amiodarone (PACERONE) [...] Active ferrous sulfate 325 mg (65 mg native iron) tablet Take 1 tablet (325 mg total) by mouth daily with breakfast. 90 tablet 3 5 Active gabapentin (NEURONTIN) 300 MG capsule Take 1 capsule (300 mg total) by mouth 3 (three) times a day. 270 capsule 3 5 10/14/20 25 Active oxyBUTYnin (DITROPAN XL) 15 MG 24 hr tablet Take 1 tablet (15 mg total) by mouth daily. 90 tablet 4 5 Active multivitamin (DAILY-ARPITA) per tablet Take 1 tablet by mouth daily. 90 tablet 3 5 Active calcium carbonate-vitami n D3 1500 mg (600 mg elemental)-400 units per tablet Take 1 tablet by mouth daily. 90 tablet 2 5 Active iron, ferronyl,-vitami n C (VITRON-C) 65 mg iron- 125 mg TbEC Take 1 tablet by mouth daily. 90 tablet 3 5 Active diphenoxylate-at ropine (LOMOTIL) 2.5-0.025 mg/5 mL liquid Take 10 mL by mouth 4 (four) times a day as needed (diarrhea). 60 mL 5 5 Active oxyCODONE 5 MG immediate release tablet [...] needed (spasm). 60 tablet 1 5 Active multivitamin (DAILY-ARPITA) per tablet Take 1 tablet by mouth daily. 90 tablet 3 4 08/22/20 25 Discontinu ed(Reorder ) calcium carbonate-vitami n D3 1500 mg (600 mg elemental)-400 units per tablet Take 1 tablet by mouth daily. 90 tablet 2 4 08/22/20 Discontinu ed(Reorder ) iron, ferronyl,-vitami n C (VITRON-C) 65 mg iron- 125 mg TbEC Take 1 tablet by mouth daily. 90 tablet 3 4 08/22/20 Discontinu ed(Reorder ) diphenoxylate-at ropine (LOMOTIL) 2.5-0.025 mg/5 mL liquid Take 10 mL by mouth 4 (four) times a day as needed (diarrhea). 60 mL 5 5 08/22/20 Discontinu ed(Reorder ) oxyCODONE 5 MG immediate release tablet Take 1 tablet (5 mg total) by mouth daily as needed for pain (specific location in comments) (back pain). Pt. may request partial fill. Use sparingly. Mass PAT checked. 30 tablet 5 08/22/20 Discontinu ed(Reorder ) cyclobenzaprine (FLEXERIL) 5 MG tablet Take 1 tablet (5 mg total) by mouth 3 (three) times a day as needed (spasm). 60 tablet 1 5 08/22/20 Discontinu ed(Reorder ) Active Problems Patient Care Coordination No te Formatting of this note is d ifferent from the original. *PLEASE DO NOT REMOVE OR MODIFY CHART REFERENCES AND TMP NOTATIONS - THANK YOU!* (Please contact TMP Reviewer via e-mail to inform of any errors) (for a Quick Reference List of common [facility] diagnoses and requirements, click here: TMP) 2019 [facility] Consider billing: DX: Morbid Obesity/E66.01 ([facility] 22) DX: Intermittent Afib/I48.0 ([facility] 96) DX: Major Depression/F33.9 ([facility] 59)1 DX: Aortic Ectasia/I77.819 ([facility] 108)2 JDW 12/07 1long term SSRI use; [...] or specific plan for committing suicide [2] [employer]. Diagnostic and Statistical Manual of Mental Disorders, Fifth Edition. [place], [place]: [place] [employer]; 2013. 2ECHO 09/04/2019 Problem Noted Date Diagnosed Date Osteoarthritis of cervical spine with myelopathy 11/16/2023 Nontraumatic incomplete tear of left rotator cuf f 11/16/2023 Venous stasis 04/27/2019 Hyperlipidemia, unspecified 04/05/2018 Intermittent atrial fibrillation 03/22/2018 Overview (12/06/2019): [facility] 07/14/2019 Kidney stones 10/08/2017 Lymphedema 10/08/2017 [...] (06/29/2017 3:22 PM EDT): Continue working with shelf stocker at [facility] Osteoarthritis 05/19/2006 Overview (12/08/2014): Degenerative joint disease [...] Department Care Team Description 08/09/2025 Orders Only [facility] [address] [place] [address] Darcy Coles [place] Nail disorder, unspecified (Primary Dx) 07/26/2025 Orders Only [facility] [address] [place] [address] Elli Leon MA Morbid obesity (Primary Dx); Mobility equipment requested 07/16/2025 Orders Only [facility] [address] [place] [address] Destiny Trinidad MD Morbid obesity (Primary Dx); [...] Formulation 05/25(Deferred: Other - , Ordered By: [id number]) Pneumococcal conjugate PCV13 09/22/2017 Pneumococcal conjugate PCV21 12/05/2024 Pneumococcal polysaccharide PPSV23 09/25,11/24/2012(Deferred: Other - , Ordered By: [id number]) Tdap 12/07/2019,,05/25/2013(Defer red: Other - , Ordered By: [id number]),11/24/2012(Deferred: Other - , Ordered By: [id number]) Zoster recombinant 07/22/2022,05/06/2022 Family History Medical History [...] Info) Description 09/18/2025 10:30 AM EST Follow-Up [facility] [address] [place] [address] Destiny Trinidad MD [address] [place] [address] Health Maintenance Due Date Last Done Comments [...] EST) Sodium 139 135 - 146 mEq/L [facility] Potassium 4.4 3.5 - 5.3 mEq/L [facility] Chloride 104 98 - 107 mEq/L [facility] CO2 26 20 - 31 mEq/L [facility] Anion Gap 9 4 - 14 [facility] Glucose 90 70 - 99 mg/dL [facility] BUN 16 6 - 20 mg/dL [facility] Creatinine 0.8(L) 0.9 - 1.3 mg/dL [facility] GFR >100 >60 mL/min/1.7 3m^2 [facility] Calcium 8.8 8.4 - 10.2 mg/dL [facility] Corrected Calcium 9.0 8.4 - 10.2 mg/dL [facility] Protein, Total 7.2 6.2 - 8.2 g/dL [facility] Alkaline Phosphatase 80 0 - 130 U/L [facility] Albumin 3.8 3.4 - 5.2 g/dL [facility] ALT (SGPT) 10 0 - 40 U/L [facility] AST (SGOT) 19 0 - 33 U/L [facility] Bilirubin, Total 0.5 0.3 - 1.2 mg/dL [facility] Blood 12/05/2024 6:53 PM EST 12/05/2024 6:53 PM EST Narrative Resulting Agency Comment No Result [facility] Destiny Trinidad MD LAB BLOOD BKR ORDERABLES Makenna l Result Performing Organization Address City/[facility] Co de Phone Number [facility] [address] [place] [address] * (ABNORMAL) Lipid panel (12/05/2024 6:53 PM EST) Cholesterol 157 <200 mg/dL [facility] Triglycerides 105 <150 mg/dL [facility] Cholesterol, HDL 37(L) >40 mg/dL [facility] LDL Cholesterol, Calculated 99 <129 mg/dL [facility] Cholesterol/HDL Ratio 4.[address] [facility] Blood 12/05/2024 6:53 PM EST 12/05/2024 6:53 PM EST Narrative Resulting Agency Comment No Result [facility] Destiny Trinidad MD LAB BLOOD BKR ORDERABLES Makenna l Result Performing Organization Address [facility] Co de Phone Number [facility] [address] [place] [address] * HM COLONOSCOPY FOR RESULT ENTRY ONLY (10/29/2022) Davon Provider HEALTH MAINTENANCE Final Result * TSH (01/02/2022 2:19 PM EDT) TSH 3.11 0.35 - 5.50 uIU/mL [facility] Blood 01/02/2022 2:19 PM EDT 01/02/2022 2:19 PM EDT Destiny Trinidad MD LAB BLOOD BKR ORDERABLES [place] [address] * Hepatitis C antibody, qualitative (09/07/2019 2:27 PM EST) HepC AB Non Reactive Non Reactive;E quivocal;R eactive [facility] 09/07/2019 2:27 PM EST 09/07/2019 2:27 PM EST Vanita Fernandez GROCERY CHECKER LAB BLOOD BKR ORDERABLES Edited [place] [address] from Last 3 Months or Most Recently Relevant to Health Maintenance Insurance [facility] [place] [address] [facility] MED[facility]ARE REPLACEMENT MEDICARE [place] [address] [address] [place] [address] MEDICARE REPLACEMENT MEDICARE REPLACEMENT MEDICARE REPLACEMENT [facility] MEDICARE REPLACEMENT [facility] MEDICARE [facility]PLACEMENT [facility] MEDICARE REPLACEMENT [facility] MEDICARE PART A & B Care Teams Professor Of Journalism Relationship Specialty Start Date End Date Destiny Trinidad MD [address] [place] [address] [email or web address] PCP - General Family Medicine 06/11/20 Additional Source Comments The information contained in this document represents components of the legal health record. It is not the complete legal health record.[facility]
--- OUTSIDE RECORDS SUMMARY | 2025-09-05 17:39 | XMS_ITS | Encounter Summary ---
Author Organization [facility] Address [address] [place] [id number] Phone Care Team Providers Care Violent Crimes Detective Name Role Phone Destiny Trinidad MD Primary Care Provider Reason for Visit * Reason Comments Med Change Request Encounter Details Date Type Department Care Team (Late st Contact Info) Description 04/19/2025 [facility] [address] [place], [place] [phone] Adilia Mack CNP [address] [place] [address] [email or web address] Med Change Request Social [...] Info) Description 09/18/2025 10:30 AM EST Follow-Up [facility] [address] [place] [address] Destiny Trinidad MD [address] [place] [address] documented as of this encounter Goals Goal [...] documented as of this encounter Care Teams Violent Crimes Detective Relationship Specialty Start Date End Date Destiny Trinidad MD [address] [place] [address] PCP - General Family Medicine 06/11/20 documented as of this encounter Additional Source Comments The information contained in this document represents components of the legal health record. It is not the complete legal health record.[facility]
--- OUTSIDE RECORDS SUMMARY | 2025-09-05 17:39 | XMS_ITS | Encounter Summary ---
Author Organization [facility] Address [address] [place] [address] Phone Care Team Providers Care Spa Coordinator Name Role Phone Destiny Trinidad MD Primary Care Provider [phone] Reason for Referral * Consultation (Within 2 weeks) - New Request Specialty Diagnoses / Procedures Referred By Contac t Referred To Contact Diagnoses Nail disorder, unspecified Destiny Trinidad MD [address] [place] [address] Phone: tel: fax: mailto: Referral ID Status Reason Start Date Expiration Date V isits Requested Visits Authorized [id number] New Request 08/09/2025 08/09/2026 1 1 Encounter Details Date Type Department Care Team (Late st Contact Info) Description 08/09/2025 Orders Only [facility] [address] [place] [address] Darcy Coles MA [address] [place] [address] [email or web address] Nail disorder, unspecified (Primary Dx) Social History [...] Info) Description 09/18/2025 10:30 AM EST Follow-Up [facility] [address] [place] [phone] Destiny Trinidad MD [address] [place] [address] [email or web address] Scheduled Referrals Name Type Priority Associated Diagnoses [...] documented as of this encounter Care Teams Spa Coordinator Relationship Specialty Start Date End Date Destiny Trinidad MD [address] [place] [address] [email or web address] PCP - General Family Medicine 06/11/20 documented as of this encounter Additional Source Comments The information contained in this document represents components of the legal health record. It is not the complete legal health record.[facility]
== END 2025-09-05 10:30 | disposition home or self-care (01) ==
LOC: HO.HCS 09:34
PROVIDERS: PCP Family Medicine; Visit Provider Internal Medicine Cardiovascular Disease
DX: I50.30 Unspecified diastolic (congestive) heart failure (principal); I48.19 Other persistent atrial fibrillation
CPT/HCPCS: 99214

== ENCOUNTER → 2025-09-05 09:33 | Outpatient (BNVA) | payer MEDICARE, MEDICAID, SELFPAY | PROVIDERS: PCP Family Medicine; Visit Provider Internal Medicine Cardiovascular Disease | DX: I48.0 Paroxysmal atrial fibrillation (principal); Z98.84 Bariatric surgery status; Z79.01 Long term (current) use of anticoagulants; G47.33 Obstructive sleep apnea (adult) (pediatric); Z99.89 Dependence on other enabling machines and devices; I11.0 Hypertensive heart disease with heart failure; I50.30 Unspecified diastolic (congestive) heart failure | CPT/HCPCS: 99212 ==

== ENCOUNTER 2025-09-06 11:51 | Outpatient (AMB) | payer MEDICARE, MEDICAID, SELFPAY ==
--- NOTE | 2025-09-06 11:51 | A.OFFVIS_ITS ---
Intake Visit Reasons: 8w/PSA Intake Note: Patient is present via telehealth for 8w follow up with PSA * 08/22 Total PSA:0.60 Urology Medication:TAMSULOSIN, GEMTESA, OXYBUTYNIN Antibiotic Allergy:PENICILLIN,SULFA,AMOXICILLIN,VANCOMYCIN,CLINDAMYCIN Blood Thinner:ELIQUIS Repairer Evaporator Required: No Allergies cefaclor (From Ceclor) Allergy (Severe, Verified 09/06/25 11:51) hives epanolol Allergy (Severe, Verified 09/06/25 11:51) hives misoprostol Allergy (Severe, Verified 09/06/25 11:51) rash NSAIDS (Non-Steroidal Anti-Inflamma Allergy (Severe, Verified 09/06/25 11:51) GI upset Penicillins Allergy (Severe, Verified 09/06/25 11:51) hives, rash, itching Sulfa (Sulfonamide Antibiotics) Allergy (Severe, Verified 09/06/25 11:51) Hives Cephalosporins Allergy (Intermediate, Verified 09/06/25 11:51) hives amoxicillin Allergy (Mild, Verified 09/06/25 11:51) rash vancomycin Allergy (Mild, Verified 09/06/25 11:51) itching clindamycin Adverse Reaction (Intermediate, Verified 09/06/25 11:51) Rash HPI Comments Details: 09/06/25--Jan is a 59-year-old male who has a history of kidney stones in his followed for lower urinary tract symptoms secondary to BPH and overactive bladder. He is prescribed Gemtesa oxybutynin and tamsulosin. History of Present Illness The patient is a 59-year-old individual presenting with lower urinary tract symptoms secondary to benign prostatic hyperplasia and overactive bladder. The patient reports taking Gemtesa in the morning and both Oxybutynin and Tamsulosin in the evening. The patient notes some improvement in bladder leakage with the current medication regimen. Although he continues to require protective underwear/pads. The patient's PSA level was recorded as 0.60, which is within normal limits. Results - PSA level: 0.60, within normal limits Plan 1. Benign Prostatic Hyperplasia (Bph) 2. Overactive Bladder - Continue current medications: Gemtesa, Oxybutynin, and Tamsulosin. Pads prn. 3. History Of Kidney Stones - Follow-up in 9 months with an ultrasound to check for kidney stones. 9/22/25--Jan is here for follow-up he was last seen on 04/26/2025 and had ureteral stent removed by Dr. Mancilla. He is followed for lower urinary tract symptoms of urgency, BPH. He is prescribed medications oxybutynin, Gemtesa and tamsulosin. Bladder scan PVR 0 mL. He has history of kidney stones. Last imaging study 03/27/2025 right renal calculi with an obstructing right UPJ stone for which Dr. Mancilla treated with lithotripsy and stent on 03/28/25 and subsequent stent removal in the office on 04/26/2025. History of Present Illness The patient is a 59-year-old male presenting with lower urinary tract symptoms and Benign Prostatic Hyperplasia (BPH). He was last seen on 04/26/25, during which a renal stent was removed by Dr. Mancilla. The patient has been experiencing urgency and is currently on medications including oxybutynin, gemtesa, and tamsulosin. The patient has a history of kidney stones, with the last imaging study on 03/27/25 showing right renal calculi and an obstructing right UPJ stone. This was treated with lithotripsy and a stent, followed by stent removal on 04/26/25. The patient was hospitalized for this condition, and there were two other small right renal stones noted in the kidney during a CAT scan in March. Results - Imaging study on 03/27/25 showed right renal calculi and obstructing right UPJ stone Plan 1. Benign Prostatic Hyperplasia (Bph) and OAB ---Morbid Obesity- Comorbidity - Continue current medications: oxybutynin, gemtesa, and tamsulosin. - Monitor urinary symptoms and adjust treatment as necessary. - Perform PSA blood test to assess prostate health. 2. History Of Kidney Stones - Monitor existing kidney stones noted in the CAT scan. 12/20/24--Jan is a 59-year-old male presenting with lower urinary tract symptoms. His urinary symptoms, including frequency and incontinence, have been managed with Gemtesa and oxybutynin, which he reports as effective. A previous CT scan-06/2024 incidentally revealed a right kidney stone, yet he remains asymptomatic. He is unable to provide Urine specimen today. Bladder scan PVR - minimal. CoMorbidity-Morbid Obesity. The patient states his PCP has recently started Wegovy, he has received samples awaiting insurance approval. Urinary Symptoms Review - Increased urinary frequency - Urinary incontinence managed with Gymtesa and oxybutynin - Asymptomatic right kidney stone identified previously - Bladder scan post-void residual of 24 mL - No renocolic or flank pain reported Results - CT scan (07/10/2024): Incidental finding of a 5 mm stone in the right kidney lower pole. 08/09/24--Jan states the addition of the gemtesa to the oxybutynin has helped his bladder symptoms. I have discussed CTAP results--right kidney stone. Patient denies renal colic symptoms. 04/28/24--Seen in the past for urinary incontinence. The patient states he is on oxybutynin 20 mg in the morning (15 mg and 5 mg tablets). He states that he is still leaking and has the urge to go to the bathroom frequently. He is prescribed tamsulosin 0.4 mg daily. The patient states that he was hospitalized at [facility] for CHF, he was told that there was kidney function issues. He had follow-up labs with his primary which noted improvement in the kidney function. He is brought labs into the office. He is unable to give a urine sample today. Bladder scan PVR 21 mL. Will order imaging to check urinary tract. Discussed combination therapy for voiding dysfunction. Will add Gemtesa 75 mg to take in the afternoon continue oxybutynin 15 mg in the morning. [facility] Medical History Xerosis of skin Onychogryphosis PAD (peripheral artery disease) Asymptomatic superficial varicosities of lower extremity, bilateral Neuropathy Tinea unguium Nail disorder Nail dystrophy Nocturnal hypoxemia Somnolence, daytime Loud snoring SHAYLA (obstructive sleep apnea) Paroxysmal A-fib Atrial flutter PAF (paroxysmal atrial fibrillation) On beta paty at home On anticoagulant therapy SHAYLA on CPAP Bronchial asthma Restrictive lung disease Migration of vascular stent Pulmonary embolus Family history of stent Uncomplicated opioid dependence Lymphedema Lumbar disc disease Venous stasis Hyperlipidemia Neurogenic bladder Dyspnea Lumbar disc prolapse with root compression History of kidney stones GERD (gastroesophageal reflux disease) OA (osteoarthritis) Morbid obesity Asthma Depression Essential hypertension Surgical History Hx of cervical spine surgery S/P IVC filter S/P appendectomy Hx of colonoscopy History of esophagogastroduodenoscopy (EGD) Hx of eye surgery Hx of gastric bypass Family History Mother Diabetes Father Brain cancer Sister Diabetes Sister Diabetes Sister Diabetes Brother Blind Brother No problems noted. Brother No problems noted. Brother No problems noted. Brother No problems noted. Daughter No problems noted. Daughter Mental health disorder Son Mental health disorder Son No problems noted. Son No problems noted. Social History Household Members: Spouse and Children Household Members Other:: - 5 kids Housing: House Are you a primary auto care center manager to a significant other at home: No Do you presently have visiting nurse or other home services: No Alcohol intake: former Year quit: 1979 Comment: uses cane at times- knee gives out Patient Tobacco Use Status: Never used Tobacco Second Hand Smoke Exposure: No Advance Directives Date on File: 08/14/21 service: No Current occupational status: disabled Current occupation: rt handed Review of Systems Const All systems reviewed & are unremarkable except as noted in HPI and below Reports no additional complaints Eyes Reports no additional complaints ENT Reports no additional complaints Card Reports no additional complaints Resp Reports no additional complaints GI Reports no additional complaints Reports as per HPI Musc Reports no additional complaints Skin/Breast Reports system reviewed and no additional complaints, except as documented Neuro Reports no additional complaints Psych Reports no additional complaints Endo Reports no additional complaints Pierre/Lymph Reports no additional complaints Aller/Immun Reports no additional complaints Telehealth Telehealth Telehealth Platform: [facility] Location of provider rendering services: practice address Location of patient: address on file Patient Identification confirmed using: Name, : Yes Telehealth method: voice only Patient verbally consented to treatment: Yes Patient verbally consented to billing insurance company: Yes Patient informed of any privacy concerns related to visit: Yes Minutes spent on Phone/Video with Pt.: 14 Results Reviewed Results Reviewed: Date of Service: 03/27/25 Comparison: CT - CT ABDOMEN PELVIS W IV CON - 03/27/25 17:41 EDT Findings: The lung bases are clear. Gallbladder is within normal limits. Moderate right perinephric fat stranding. Multiple ill-defined regions of hypodensity within the right renal parenchyma. Nonobstructing 4 mm calculus within the right interpolar kidney posteriorly. Nonobstructing punctate calculus within the superior pole right kidney. Mild right hydronephrosis. Right ureteropelvic junction calculus measuring 3 mm. No bowel obstruction, pneumoperitoneum, or pneumatosis. Small hiatal hernia. Inferior vena cava stent is present. Pelvic contents unremarkable. Appendix is not seen. No acute fracture. IMPRESSION: 1. Right ureteropelvic junction calculus associated with right hydronephrosis. 2. Findings suggestive of right pyelonephritis. Correlation with urinalysis recommended. 3. Small hiatal hernia. Date of Service: 07/10/24 CT ABDOMEN AND PELVIS WITHOUT CONTRAST CLINICAL INFORMATION: Unspecified symptoms and signs involving the genitourinary system. COMPARISON: CT enterography 11/17/2022. TECHNIQUE: Multidetector volumetric imaging was performed from the superior aspect of the liver through the pubic symphysis. Sagittal and coronal reformatted images were obtained on the technologist's workstation. This CT examination was performed using dose optimization techniques as appropriate, variously including the following: *Automated exposure control *Adjustment of mA and/or kV according to patient size (this includes techniques or standardized protocols for targeted exams where dose is matched to indication/reason for exam; i.e. extremities or head) *Use of iterative reconstruction technique DLP: 1079 mGy-cm Examination submitted for interpretation 09/15/2024. FINDINGS: Study somewhat limited by patient habitus. This results in beam starvation artifact, mildly limiting detection of subtle findings. LUNG BASES: -There are patchy round glass type opacities within the lingula, right middle lobe, and right lower lobe, which have an inflammatory or infectious type appearance. These appear more numerous than on the previous exam although were present in the left lower lobe on the prior. Process appears to be ongoing. -There are no effusions. -There is bronchiectasis in both lower lobes without bronchial wall thickening. -There is mild/moderate cardiomegaly. There are mild coronary calcifications. There is no pericardial effusion. -Patulous appearing distal esophagus leads into a hiatus hernia and gastric bypass procedure. LIVER, GALLBLADDER, AND BILIARY TREE: -Unenhanced liver demonstrates no discrete abnormality. Normal in attenuation. Increased size, with craniocaudal length of 24 cm. - The gallbladder demonstrates no evidence of gallbladder wall thickening, or obvious pericholecystic inflammatory changes. - Suspect gallstones present (series 3, image 33). No biliary dilatation. PANCREAS: Unremarkable. SPLEEN: Unremarkable. ADRENAL GLANDS: Unremarkable. KIDNEYS AND URETERS: -Left kidney normal . -Right kidney demonstrates a 5 mm calculus in the lower pole, nonobstructing. Right kidney is otherwise normal. -There is mild nonspecific perirenal stranding bilaterally. -Ureters are nondilated. BLADDER: The urinary bladder is completely decompressed and contains intraluminal gas. No significant wall thickening noted or inflammatory change. Gas is likely present from iatrogenic cause. GASTROINTESTINAL TRACT: -Post gastric bypass. Hiatus hernia. Patulous appearing distal esophagus. -Excluded stomach, duodenum, and small bowel appear normal. -The colon appears normal. No rectal abnormality. -No acute findings in the GI system. ABDOMINAL WALL: -Morbid obesity. -Prominent inguinal lymph nodes are present, stable from prior exam, presumably reactive in nature. There is a small fat-containing periumbilical hernia. -Grossly no masses or fluid collections present. -Generalized atrophy of the pelvic girdle musculature, presumably from sedentary state. LYMPH NODES: -Prominent inguinal lymph nodes as above, unchanged. -Mildly enlarged external iliac lymph nodes right greater than left, with left measuring up to 1.5 x 2.7 cm (series 3, image 88), unchanged suggesting benignity and reactive etiology. -No additional lymphadenopathy present. VASCULAR: -There is a stent within the IVC. -There is no aneurysm or significant atheromatous changes. PELVIC VISCERA: -The prostate is small and difficult to visualize. -Otherwise normal. OSSEOUS STRUCTURES: -There is generalized osteopenia. This appears most notable in the lower lumbar spine. -There are moderate degenerative changes throughout the spine, as well as the left greater than right hip joints. -Is no acute or suspicious bony abnormality. IMPRESSION: 1. No hydronephrosis or hydroureter. There is a 5 mm nonobstructing calculus in the right kidney lower pole. 2. Decompressed urinary bladder with intraluminal gas, presumably from either self catheterization or iatrogenic. 3. Additional ancillary findings as discussed in the body of the report. Assessment & Plan Assessment & Plan (1) Kidney stone: Code(s): N20.0 - Calculus of kidney Category: Medical (2) Morbid obesity: Code(s): E66.01 - Morbid (severe) obesity due to excess calories Category: Medical (3) Urge incontinence of urine: Code(s): N39.41 - Urge incontinence Category: Medical (4) Right renal stone: Code(s): N20.0 - Calculus of kidney Category: Medical (5) Overactive bladder: Code(s): N32.81 - Overactive bladder Category: Medical Plan Plan 1. Benign Prostatic Hyperplasia (Bph) 2. Overactive Bladder - Continue current medications: Gemtesa, Oxybutynin, and Tamsulosin. Pads prn. 3. History Of Kidney Stones - Follow-up in 9 months with an ultrasound to check for kidney stones. Orders: Orders US renal BI 8 Months N20.0 - Calculus of kidney Medications: New vibegron (Gemtesa) 75 mg PO DAILY 90 tabs 3RF Refilled oxybutynin chloride ER 15 mg PO DAILY 90 tabs 3RF tamsulosin 0.4 mg PO DAILY 90 caps 3RF Patient Instructions: The patient had an opportunity to ask questions regarding treatment plan. The patient expressed understanding and agreement with the above treatment plan. The patient is aware they should contact our office by phone for worsening of their current condition or the appearance of new symptoms. Compliance is encouraged with any medications and followup testing that is ordered. It is a privilege to be allowed the opportunity to participate in the urologic care of your patient. If you have any questions or concerns regarding treatment for the above conditions please do not hesitate to contact me. The office telephone contact is [phone]. This note is constructed in part using voice recognition software. While every effort has been made to ensure accuracy assistant credit manager errors may have been included. Yours sincerely, Therese Soto MD Scribe Plan - Not visible on output: Patient was informed and verbally consented to the use of an ambient scribe for clinic note documentation during this visit. Coding Level of Care Code Tele Est Pt Level 4 (72467) Complex EM visit Add On G2211 Diagnoses Kidney stone N20.0 Morbid obesity E66.01 Urge incontinence of urine N39.41 Right renal stone N20.0 Overactive bladder N32.81
== END 2025-09-06 14:17 | disposition home or self-care (01) ==
LOC: HO.HUSH 11:51
PROVIDERS: PCP Family Medicine; Visit Provider Urology
DX: N20.0 Calculus of kidney (principal); E66.01 Morbid (severe) obesity due to excess calories; N39.41 Urge incontinence; N32.81 Overactive bladder
CPT/HCPCS: 99214; G2211